=== PATIENT | male | born 1960 | race Caucasian/White ===

== ENCOUNTER 2018-08-31 09:04 | Emergency (ER) | payer MEDICAID, SELFPAY ==
[2018-08-31] VITALS (26 sets, daily range): BP systolic 101–119; BP diastolic 59–81; PULSE 70–104; RESP 12–39; TEMP 36.3–37; O2SAT 91–98
--- NOTE | 2018-08-31 09:26 | W.ED.GENAD ---
Discharge Plan Disposition Patient Disposition: HOME Condition: Improving Discharge Details Chief Complaint: Chest Pain Clinical Impression: Acute alcoholic gastritis Primary Care Provider: Greg Jordan ED Provider: Juan Verde Home Meds and New Rx's Prescriptions: New sucralfate [Carafate] 1 gram tablet 1 gm PO Q6H 28 Days Qty: 112 RF: 0 Continue magnesium oxide 400 MG tablet 400 mg PO BID RF: 0 zolpidem [Ambien] 5 MG tablet 10 mg PO HS RF: 0 pantoprazole 40 MG tablet,delayed release (DR/EC) 40 mg PO DAILY@0730 Qty: 30 RF: 0 folic acid 1 MG tablet 1 mg PO DAILY Qty: 30 RF: 0 multivit, iron, min no.8, FA [Therapeutic-M] 1 TAB tablet 1 tab PO DAILY Qty: 30 RF: 0 No Action propranolol 10 mg Tablet 10 mg PO TID RF: 0 albuterol sulfate 90 mcg/actuation Hfa Aerosol Inhaler 2 puff INHALATION Q4H PRNRF: 0 Discharge Instructions Instructions: Gastritis (ED) Additional Instructions: Your alcohol level today was 0.184. Please continue efforts to decrease alcohol usage. I will re-prescribe your pantoprazole and you should continue to take it. I have added Carafate which I will ask you to take for 1 month. Please call the [facility] primary care office for a follow-up appointment in 5-10 days time. You may use Tums in addition to the prescribed pantoprazole. Please limit your diet to bland foods and avoid fatty, fried, spicy, tomato-based foods or further alcohol use today. Return if you develop a fever, worsening discomfort, or any other acute concern. Medical Decision Making 58-year-old male alcoholic presents from home with epigastric pain that radiates to his chest over days time. He admits to ongoing daily drinking. He has not had a fever. No diarrhea. He arrives with a normal temperature, blood pressure, pulse is 96. Differential diagnosis includes mild alcohol withdrawal, dehydration, pancreatitis, gastritis. Patient IV access established, given fluids, antiemetic, parenteral analgesic. He is referred for laboratory testing and EKG. EKG nondiagnostic. Patient's diagnostics reveal a normal lipase, anion gap greater than 20, unremarkable CBC. His alcohol level is 184, which is somewhat inconsistent with his reported use Most consistent with toxic effects of chronic alcohol use including dehydration and gastritis. Patient was given a GI cocktail, Protonix with improvement. Current medication list obtained with patient primary care office at [facility]. I will have him continue the prescribed pantoprazole and add Carafate. He understands to decrease alcohol use. He understands return precautions. Stable for discharge with his mother. He is ambulatory, speaking fluently, with no overt signs of acute alcohol toxicity Lab Data Lab results reviewed: Yes I reviewed the patient's lab results. Laboratory Results - last 24 hr 08/31/18 08/31/18 08/31/18 09:34 09:35 09:35 WBC 7.72 RBC 5.07 Hgb 17.0 Hct 50.0 MCV 98.6 H MCH 33.5 H MCHC 34.0 RDW 13.5 Plt Count 122 L MPV 9.4 Immature Gran % 0.3 Neutrophils % 75.9 Lymphocytes % 17.4 Monocytes % 5.7 Eosinophils % 0.1 Basophils % 0.6 Absolute Neutrophils 5.86 Absolute Lymphocytes 1.34 Absolute Monocytes 0.44 Absolute Eosinophils 0.01 Absolute Basophils 0.05 Sodium 143 Potassium 3.4 L Chloride 98 Carbon Dioxide 19.0 L Anion Gap 26.0 H BUN 6 L Creatinine 0.57 L Estimated GFR/1.73 m2 >= 60.00 Glucose 101 H Calcium 9.4 Magnesium 1.2 L Total Bilirubin 0.7 Conjugated Bilirubin 0.26 H AST 100 H ALT 87 H Alkaline Phosphatase 44 L Troponin I < 0.02 Total Protein 7.5 Albumin 4.0 Lipase 64 L Ethyl Alcohol 184.1 ECG Data Attestation: I personally reviewed and interpreted this ECG (s) as follows: Interpretation: Normal sinus rhythm, rate of 80, the QRS is narrow, there is no ST segment elevation. Q waves noted in anterior leads. HPI General Mode of arrival: ambulatory. Date/Time Provider Initiated Documentation: 08/31/18 09:05. Limitations to Documentation: no limitations. Information obtained by: patient. History of Present Illness 58 year old M presents to the emergency department with the chief complaint of Randall epigastric pain, described as moderate, Quality is described as burning, and is localized to the abdomen. Patient reports radiation to (2 chest). Patient started experiencing this hour(s) and it has been constant. No relieving factors improve symptom(s), Eating worsens symptoms . Patient notes denies fever/chills. HPI Narrative: 58-year-old male alcoholic presents with his mother from his home. He describes a gradual onset yesterday evening of burning epigastric pain that is been constant, moderate to severe, radiates to his chest at times and is associated with multiple episodes of nonbilious emesis. It is worsened with food. He states he drinks approximately 4 beers per day. Related Data Home Medications Medication Instructions Recorded Confirmed magnesium oxide 400 mg PO BID 08/14/17 08/31/18 zolpidem [Ambien] 10 mg PO HS tab-cap 08/14/17 08/31/18 folic acid 1 mg PO DAILY #30 tab 12/12/17 08/31/18 multivit, iron, min no.8, FA 1 tab PO DAILY #30 tab 12/12/17 08/31/18 [Therapeutic-M] albuterol sulfate 2 puff INHALATION Q4H PRN 08/31/18 08/31/18 pantoprazole 40 mg PO DAILY@0730 #30 tabcr 08/31/18 propranolol 10 mg PO TID 08/31/18 08/31/18 sucralfate [Carafate] 1 gm PO Q6H 28 Days #112 tab 08/31/18 Previous Rx's Medication Instructions Recorded folic acid 1 mg PO DAILY #30 tab 12/12/17 multivit, iron, min no.8, FA 1 tab PO DAILY #30 tab 12/12/17 [Therapeutic-M] pantoprazole 40 mg PO DAILY@0730 #30 tabcr 08/31/18 sucralfate [Carafate] 1 gm PO Q6H 28 Days #112 tab 08/31/18 Allergies Allergy/AdvReac Type Severity Reaction Status Date / Time No Known Allergies Allergy Unverified 08/14/17 09:07 Review of Systems Review of Systems 8 systems reviewed and otherwise negative PFSH Social History Smoking/Tobacco Use Status: Current every day Exam Narrative Exam Narrative: GEN: awake, alert, oriented 3. Pleasant, well groomed, interactive, anxious, mild tremor.. HEAD: Normocephalic, atraumatic ENT: Mucous membranes dry, oropharynx unremarkable, tobacco stains on mustache external ear exam unremarkable EYES: PERRL, EOMI NECK: Full ROM, no LEANNE, no menigismus CHEST/RESP: Nontender, clear to auscultation bilateral, no wheeze/rhonchi/rales CARDIOVASCULAR: RRR, no murmur, rub tyrell. 2+ Rad pulse bilateral ABDOMEN: Soft, tender in the epigastrium without rebound or guarding., no mass. +Bowel sounds EXT: Full ROM, no edema, no rash Neuro: Grossly normal neurologic exam, conversant, interactive, mild tremor present. Psych: Speech fluent, thoughts congruent, affect slightly anxious
[2018-08-31] MEDS: Lactated Ringers 1,000 ML 1000 ML IV (09:45)
[2018-08-31] MEDS: Ondansetron 4 MG/2 ML VIAL IVP (09:46)
[2018-08-31] MEDS: HYDROmorphone 2 MG/ML VIAL 1 MG IVP (09:47)
[2018-08-31] MEDS: LORazepam 2 MG/ML VIAL 0.5 MG IVP (09:48)
[2018-08-31 09:52] LABS: Abs Immature Grans 0.02 k/cumm (0.0-0.09); Absolute Basophil Count 0.05 k/cumm (0.0-0.2); Absolute Eosinophil Count 0.01 k/cumm (0.0-0.7); Absolute Lymphocyte Count 1.34 k/cumm (1.2-3.4); Absolute Monocyte Count 0.44 k/cumm (0.11-0.7); Absolute Neutrophil Count 5.86 k/cumm (1.2-6.7); Basophils % 0.6; Eosinophils % 0.1; Immature Grans % 0.3; Lymphocytes % 17.4; Mean Corpuscular Hemoglobin 33.5 pg (27.0-33.0); Mean Corpuscular Volume 98.6 fL (80-95); Mean Platelet Volume 9.4 fL (8.0-11.0); Monocytes % 5.7; Neutrophils % 75.9; Platelet Count 122 x1000/uL (130-400); RBC 5.07 m/cumm (4.50-6.00); RBC Distribution Width 13.5 % (11.8-14.1); White Blood Cell Count 7.72 k/cumm (4.4-10.8)
[2018-08-31 10:07] LABS: ALT 87 U/L (12-78); AST 100 U/L (15-37); Alkaline Phosphatase 44 U/L (46-116); BUN 6 mg/dL (7-18); Bilirubin, Direct 0.26 mg/dL (0.00-0.20); Bilirubin, Total 0.7 mg/dL (0.2-1.0); CREATININE 0.57 mg/dL (0.70-1.30); Calcium 9.4 mg/dL (8.5-10.1); Chloride 98 mmol/L (98-107); Glucose 101 mg/dL (70-100); Lipase 64 U/L (73-393); Magnesium 1.2 mg/dL (1.8-2.4); Potassium 3.4 mmol/L (3.5-5.1); Sodium 143 mmol/L (136-145); Total Protein 7.5 g/dL (6.4-8.2); Troponin I < 0.02 ng/mL (0.00-0.06)
--- NOTE | 2018-08-31 10:37 | DI.RAD_ITS ---
SYMPTOM/DIAGNOSIS: EPIGASTRIC PAIN, SMOKER, DAILY DRINKER PA AND LATERAL CHEST: The heart is normal in size. The lungs are clear. The mediastinal structures and pleura appear intact. CONCLUSION: Normal chest.
[2018-08-31 10:39] LABS: ETHANOL BLOOD 184.1 mg/dL (<3)
[2018-08-31] MEDS: Pantoprazole 40 MG VIAL IVP (10:44)
== END 2018-08-31 11:30 | disposition home or self-care (01) ==
PROVIDERS: Emergency Provider Emergency Medicine; PCP Specialist/Technologist Athletic Trainer
DX: K29.20 Alcoholic gastritis without bleeding (principal); F10.20 Alcohol dependence, uncomplicated; Y90.6 Blood alcohol level of 120-199 mg/100 ml; R11.2 Nausea with vomiting, unspecified
CPT/HCPCS: 36415; 80053; 80076; 83690; 93005; 96361; 96374; 96375; 99285; 71046; 80320; 83735; 84484; 85025; 93010; 99284; J2060; J2405

== ENCOUNTER 2019-06-21 08:21 | Outpatient (CLI) | payer OTHER, SELFPAY ==
[2019-06-21] MEDS: Inhaler, Assist Device 1 EACH MC (09:31)
[2019-06-21] MEDS: Albuterol HFA 18 GM 200 PUFF INH IH (09:31)
== END 2019-06-21 08:41 ==
PROVIDERS: PCP Specialist/Technologist Athletic Trainer; Visit Provider Pediatrics Pediatric Rheumatology
DX: J44.9 Chronic obstructive pulmonary disease, unspecified (principal); F17.200 Nicotine dependence, unspecified, uncomplicated; Z02.71 Encounter for disability determination
CPT/HCPCS: 94060; 94729

== ENCOUNTER 2019-07-31 08:40 | Outpatient (CLI) | payer MEDICAID, SELFPAY ==
[2019-07-31 09:17] LABS: Bilirubin Negative (Negative); Blood Negative (Negative); Clarity Clear (Clear); Glucose Negative (Negative); Ketones Negative (Negative); Leukocyte Esterase Negative (Negative); Nitrite Negative (Negative); Specific Gravity 1.015 (1.005-1.025); Urobilinogen 0.2 EU/dL (Up TO 0.2)
[2019-07-31 09:24] LABS: Abs Immature Grans 0.01 k/cumm (0.0-0.09); Absolute Basophil Count 0.07 k/cumm (0.0-0.2); Absolute Eosinophil Count 0.14 k/cumm (0.0-0.7); Absolute Lymphocyte Count 1.36 k/cumm (1.2-3.4); Absolute Monocyte Count 0.74 k/cumm (0.11-0.7); Absolute Neutrophil Count 3.15 k/cumm (1.2-6.7); Basophils % 1.3; Eosinophils % 2.6; HCT 32.8 % (40.0-50.0); HGB 9.8 g/dL (13.5-17.5); Immature Grans % 0.2; Lymphocytes % 24.9; Mean Corp. HGB Concentration 29.9 g/dL (32.0-36.0); Mean Corpuscular Hemoglobin 23.2 pg (27.0-33.0); Mean Corpuscular Volume 77.5 fL (80-95); Mean Platelet Volume 9.1 fL (8.0-11.0); Monocytes % 13.5; Neutrophils % 57.5; Platelet Count 215 x1000/uL (130-400); RBC 4.23 m/cumm (4.50-6.00); RBC Distribution Width 18.7 % (11.8-14.1); White Blood Cell Count 5.47 k/cumm (4.4-10.8)
[2019-07-31 10:45] LABS: Anisocytosis 2+; Basophilic Stippling Present; Diff Comment RBC Morph Reviewed; Hypochromasia 2+; Microcytosis 1+; Polychromasia Present
[2019-07-31 10:46] LABS: Target Cells 2+
[2019-08-01 10:36] LABS: C3 Complement 99 mg/dL (81-157); C4 Complement 13 mg/dL (13-39)
== END 2019-07-31 09:00 ==
PROVIDERS: PCP Specialist/Technologist Athletic Trainer
DX: D64.9 Anemia, unspecified (principal)
CPT/HCPCS: 36415; 81003; 85025; 86160

== ENCOUNTER 2019-11-28 14:41 | Inpatient (IN) | payer MEDICAID, SELFPAY ==
[2019-11-28] VITALS (33 sets, daily range): BP systolic 104–153; BP diastolic 56–88; PULSE 71–117; RESP 14–32; TEMP 36.7–37.4; O2SAT 91–100
[2019-11-28] MEDS: Ondansetron 4 MG/2 ML VIAL (14:54)
--- NOTE | 2019-11-28 14:59 | W.ED.GENAD ---
Discharge Plan Disposition Patient Disposition: [facility] INPATIENT Condition: Good Discharge Details Chief Complaint: Chest Pain Clinical Impression: Vomiting, Enteritis, Acidosis, lactic, Acute dehydration Primary Care Provider: Greg Jordan ED Provider: Dewayne Gamez Home Meds and New Rx's Prescriptions: No Action magnesium oxide 400 MG tablet 400 mg PO BID RF: 0 zolpidem [Ambien] 5 MG tablet 10 mg PO HS RF: 0 pantoprazole 40 MG tablet,delayed release (DR/EC) 40 mg PO DAILY@0730 Qty: 30 RF: 0 propranolol 10 mg Tablet 10 mg PO TID RF: 0 albuterol sulfate 90 mcg/actuation Hfa Aerosol Inhaler 2 puff INHALATION Q4H PRNRF: 0 folic acid 1 MG tablet 1 mg PO DAILY Qty: 30 RF: 0 multivit, iron, min no.8, FA [Therapeutic-M] 1 TAB tablet 1 tab PO DAILY Qty: 30 RF: 0 Medical Decision Making This is a 59-year-old male with a history of alcoholism drinking 2-3 beers per day, who presents with abdominal pain that started yesterday followed by 30 episodes of vomiting and now subsequent chest pain. He is currently retching but no vomiting anymore. He denies any blood in his sputum or vomit, he denies any diarrhea or melena. Exam demonstrates a relatively unremarkable abdomen with no focal tenderness. Mild diffuse irritation. No genital tenderness. No skin crepitus. Vitals are stable aside from mild tachycardia. He shows no evidence of STEMI on his EKG. Differential is highest for Ling-Hancock tear or Boerhaave's tear, we will treat the patient's pain, nausea, rehydrate, get a CAT scan for further assessment of this and reassess. Of note it does appear that the patient had a similar but certainly not identical presentation about a year ago where Boerhaave's tear was also on the differential. CT scan at that time showed acute enteritis throughout but no other focal component. 5:51 PM Patient's lactate is notably elevated at 6.3, no transaminitis, troponin normal, urinalysis unremarkable aside for notably elevated ketones. Alcohol 100. Patient has had notably persistent nausea and vomiting and pain here. Pain is improved with opiates, however he is unable to tolerate p.o. after 8 of Zofran, Compazine, and Reglan. He has continued vomiting and p.o. intolerance. Repeat lactate after 2 L normal saline has slightly improved to 5.5. I did contact radiology again and discussed the case and they see no clinical evidence of ischemic bowel. Additionally the patient's mother is now at bedside and states that his hemoglobin has been low like this in the past, he is being evaluated at [facility] and recently had a colonoscopy in the last 2 months, which was negative. They are uncertain as to where his low hemoglobin is coming from. We will continue to rehydrate control his pain and nausea. He does appear slightly jittery and will give 1 mg of Ativan as he may be having a very small amount of withdrawals. He does not have any history of seizures or DTs. Because of his persistently elevated lactate, his inability to tolerate p.o., I do feel that he would benefit from inpatient admission continued fluids and rehydration. I spoke with Dr. Strickland, she agrees with the assessment and plan. Patient will be admitted to [facility] for further management. I have extensively reviewed the treatment plan with the patient. I have addressed all patient concerns at this time. I have also discussed the plan with the admitting physician and they agree with the current assessment and plan and have agreed to assume responsibility for the patient. All parties demonstrate verbal understanding and agreement with our assessment and plan at this time. Also of note serial troponins and EKGs are within normal limits. Symptoms and consistent with ACS. EKG 14: 46 Rate 107, QTc 472, QRS 92, machine read as atrial flutter however I think this is incorrect. It appears to be sinus rhythm, no evidence of STEMI, no significant abnormality. FINDINGS: Aorta: Mild atherosclerotic calcifications of the aorta and major branches. No evidence of dissection or aneurysm. Celiac trunk and mesenteric arteries: No occlusion or significant stenosis. Renal arteries: No occlusion or significant stenosis. Liver: Diffuse hepatic steatosis. Gallbladder and bile ducts: Normal. No calcified stones. No ductal dilation. Pancreas: Normal. No ductal dilation. Spleen: Normal. No splenomegaly. Adrenals: Normal. No mass. Kidneys and ureters: Punctate nonobstructive calyceal calculus in the right kidney. Mild right hydroureter. Stomach and bowel: Generalized nonspecific prominence of proximal to mid small bowel loops measuring up to 3.5 cm in maximal diameter, with air-fluid levels, and several with areas of wall thickening. No evidence of pneumatosis. Visualized large bowel loops are unremarkable. Approximately 2.2 cm fat density mural lesion within the wall of the proximal jejunum, just beyond the ligament of Treitz. Appendix: The appendix is normal. Lymph nodes: Unremarkable. No enlarged lymph nodes. Intraperitoneal space: Unremarkable. No free air. No significant fluid collection. Bones/joints: Mild degenerative changes of the visualized spine. No acute fracture. Soft tissues: Unremarkable. IMPRESSION: 1. Generalized nonspecific prominence of proximal to mid small bowel loops measuring up to 3.5 cm in maximal diameter, with air-fluid levels, and several with areas of wall thickening. Findings are most suggestive of enteritis. No definite evidence of mechanical obstruction. 2. 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 This lesion was present on prior CT from 12/12/2017. 3. Diffuse hepatic steatosis. 4. Punctate nonobstructive calyceal calculus in the right kidney. Mild right hydroureter. Distal obstructive calculus cannot be excluded, as the bladder and inferior right ureter were not included within the [id number] of the examination. Correlate clinically with urinalysis. 5. Other chronic findings, as above. Thank you for allowing us to participate in the care of your patient. Dictated and Authenticated by: Morales Veras MD 11/28/2019 5:09 PM Eastern Time ([place] & [place]) FINDINGS: Lungs: No centrilobular emphysematous changes of the lungs. Pleural space: No pleural effusion or pneumothorax. Heart: Mild to moderate calcifications of the coronary arteries. Mediastinum: Oral contrast is present within the oral cavity and esophagus. No evidence of extravasation of oral contrast from visualized portions of the alimentary canal. Aorta: Mild atherosclerotic calcifications of the aorta. Lymph nodes: No enlarged lymph nodes. Bones/joints: No acute osseus lesion or fracture. Soft tissues: Unremarkable. IMPRESSION: 1. Oral contrast is present within the oral cavity and esophagus. No evidence of extravasation of oral contrast from visualized portions of the alimentary canal. 2. Other chronic findings, as above. Thank you for allowing us to participate in the care of your patient. Dictated and Authenticated by: Morales Veras MD 11/28/2019 4:55 PM Eastern Time ([place] & [place]) HPI General Date/Time Provider Initiated Documentation: 11/28/19 14:42. HPI Narrative: 59-year-old male with a past medical history of alcoholism who presents today for evaluation of vomiting and chest pain. Patient states that starting yesterday afternoon he developed sudden onset nausea, followed by 30+ episodes of vomiting, no blood. He then developed mild to moderate chest pain with it. He denies cough or shortness of breath. States that the pain is all throughout his entire abdomen, and goes all the way up to his chest. He denies any tearing or ripping sensation. He denies any diarrhea, hematochezia, melena or acholic stool. He has not drunk in the last 2 to 3 days. He denies any history of cardiac disease. He does admit to a history of tobacco abuse. He denies any other complaints at this time. No other modifying factors. Related Data Home Medications Medication Instructions Recorded Confirmed magnesium oxide 400 mg PO BID 08/14/17 08/31/18 zolpidem [Ambien] 10 mg PO HS tab-cap 08/14/17 08/31/18 folic acid 1 mg PO DAILY #30 tab 12/12/17 08/31/18 multivit, iron, min no.8, FA 1 tab PO DAILY #30 tab 12/12/17 08/31/18 [Therapeutic-M] albuterol sulfate 2 puff INHALATION Q4H PRN 08/31/18 08/31/18 pantoprazole 40 mg PO DAILY@0730 #30 tabcr 08/31/18 propranolol 10 mg PO TID 08/31/18 08/31/18 Previous Rx's Medication Instructions Recorded folic acid 1 mg PO DAILY #30 tab 12/12/17 multivit, iron, min no.8, FA 1 tab PO DAILY #30 tab 12/12/17 [Therapeutic-M] pantoprazole 40 mg PO DAILY@0730 #30 tabcr 08/31/18 Allergies Allergy/AdvReac Type Severity Reaction Status Date / Time No Known Allergies Allergy Unverified 11/28/19 14:47 General Stated Complaint: Chest Pain YOGI: 2 Review of Systems All systems reviewed & are unremarkable except as noted in HPI and below PFSH Social History Smoking/Tobacco Use Status: Current every day Drug use: Daily Do you feel safe in your relationship?: Yes Exam Narrative Exam Narrative: 1.Const: Well-nourished, Well-developed, appearing stated age 2.Eyes: PERRL, no conjunctival injection, and symmetrical lids. 3.ENT: Atraumatic external nose and ears. Notably dry MM. Neck: Symmetric, trachea midline, No thyromegaly. 4.CVS: +S1/S2, No murmurs or gallops. Peripheral pulses 2+ and equal in all extremities. Brisk capillary refill in all extremities. 5.RESP: Unlabored respiratory effort. Clear to auscultation bilaterally. No wheezes rales or rhonchi 6.GI: Soft, nondistended, no guarding or rebound. No focal tenderness. No pain at McBurney's point, negative Birch sign. 7.MSK: Normocephalic/Atraumatic, Extremities w/o deformity or ttp No cyanosis or clubbing, Normal movement of all extremities 8.Skin: Warm, Dry. No rashes or lesions. 9.Neuro: wool washer II-XII grossly intact. Sensation grossly intact, no focal neurologic deficits. 10.Psych: (AAO) x3. Appropriate mood and affect Course Vital Signs Vital signs: Vital Signs Temperature 36.8 C 11/28/19 14:44 Pulse 117 H 11/28/19 14:44 Respiratory Rate 18 11/28/19 14:44 Blood Pressure 136/86 11/28/19 14:44 Pulse Oximetry 98 11/28/19 14:44 Temperature 36.8 C 11/28/19 14:44 Temperature Source Temporal Artery Scan 11/28/19 14:44 Pulse 117 H 11/28/19 14:44 Respiratory Rate 18 11/28/19 14:44 Blood Pressure 136/86 11/28/19 14:44 Blood Pressure Position Supine 11/28/19 14:44 Pulse Oximetry 98 11/28/19 14:44 Oxygen Delivery Method Room Air 11/28/19 14:44 Oxygen Flow Rate 0 11/28/19 14:44 Pain Level 8 11/28/19 14:44 Lab/Test Results Lab/Test Results: 11/28/19 14:46 Nasopharynx Influenza Types A,B Antigen - Pending
[2019-11-28] MEDS: Normal Saline 1,000 ML 1000 ML IV ×3 (15:07→17:40)
[2019-11-28 15:21] LABS: Lactate 6.3 mmol/L (0.6-1.4)
[2019-11-28 15:24] LABS: Abs Immature Grans 0.02 k/cumm (0.0-0.09); Absolute Basophil Count 0.05 k/cumm (0.0-0.2); Absolute Eosinophil Count 0.02 k/cumm (0.0-0.7); Absolute Lymphocyte Count 0.97 k/cumm (1.2-3.4); Absolute Monocyte Count 0.71 k/cumm (0.11-0.7); Absolute Neutrophil Count 5.11 k/cumm (1.2-6.7); Basophils % 0.7; Eosinophils % 0.3; HCT 34.1 % (40.0-50.0); Immature Grans % 0.3 %; Lymphocytes % 14.1; Mean Corp. HGB Concentration 29.3 g/dL (32.0-36.0); Mean Corpuscular Volume 78.6 fL (80-95); Mean Platelet Volume 9.8 fL (8.0-11.0); Monocytes % 10.3; Neutrophils % 74.3; Platelet Count 151 x1000/uL (130-400); RBC 4.34 m/cumm (4.50-6.00); RBC Distribution Width 23.2 % (11.8-14.1); White Blood Cell Count 6.88 k/cumm (4.4-10.8)
[2019-11-28 15:36] LABS: ALT 32 U/L (16-63); AST 52 U/L (15-37); Albumin 3.3 g/dL (3.4-5.0); Alkaline Phosphatase 62 U/L (46-116); Anion Gap 17.7 mmol/L (3-11); BUN 4 mg/dL (7-18); Bilirubin, Total 0.6 mg/dL (0.2-1.0); CO2 24.3 mmol/L (21.0-32.0); CREATININE 0.58 mg/dL (0.70-1.30); Calcium 8.7 mg/dL (8.5-10.1); Chloride 101 mmol/L (98-107); Glucose 116 mg/dL (74-106); Lipase 58 U/L (73-393); Potassium 3.4 mmol/L (3.5-5.1); Sodium 143 mmol/L (136-145); Total Protein 7.1 g/dL (6.4-8.2)
[2019-11-28 15:39] LABS: Troponin I < 0.05 ng/Ml (<0.06)
[2019-11-28 15:40] LABS: ETHANOL BLOOD 107.6 mg/dL (<3)
[2019-11-28] MEDS: Metoclopramide 10 MG/2 ML VIAL (15:58)
[2019-11-28] MEDS: Normal Saline 50 ML 400 ML (15:58)
[2019-11-28 15:59] LABS: Anisocytosis 3+; Diff Comment RBC Morph Reviewed; Hypochromasia 1+
[2019-11-28] MEDS: HYDROmorphone 2 MG/ML VIAL ×2 (15:59→17:57)
[2019-11-28 16:00] LABS: Target Cells 2+
[2019-11-28] MEDS: Omnipaque 350 MG/ML 100 ML BTL IJ ×2 (16:01→16:39)
--- NOTE | 2019-11-28 16:08 | DI.CT_ITS ---
EXAM: CT ABDOMEN CTA CLINICAL HISTORY: Abdominal pain, vomiting, wretching, lactate of 6 TECHNIQUE: COMPARISON: CHEST ABD PELVIS WITH CONTRAST from 12/12/2017 FINDINGS: CT angiography of the abdomen was performed with intravenous infusion of 100 cc of Omnipaque 350. Th ere is mild hepatic steatosis. Spleen is unremarkable in appearance. Pancreas appears normal. No b iliary dilatation or gallbladder abnormality by CT criteria. Adrenals and kidneys appear normal exce pt for tiny nonobstructing right renal calculus. No abdominal adenopathy. No focal bowel pathology although there is mild nonspecific bowel dilatation, consider enteritis. Abdominal aorta is of normal diameter with mild atheromatous wall calcification. Major branches appe ar intact throughout. IMPRESSION: No major vascular abnormality seen. Hepatic steatosis noted. Mild nonspecific fluid-filled bowel dilatation, consider enteritis. 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
[2019-11-28 16:23] LABS: Bilirubin Negative (Negative); Blood Negative (Negative); Clarity Clear (Clear); Glucose Negative (Negative); Ketones 40 mg/dL (Negative); Leukocyte Esterase Negative (Negative); Nitrite Negative (Negative); Specific Gravity >= 1.030 (1.005-1.025); Urobilinogen 0.2 EU/dL (Up TO 0.2)
--- NOTE | 2019-11-28 16:30 | DI.CT_ITS ---
EXAM: CT CHEST W CLINICAL HISTORY: Abdominal pain, vomiting, wretching, lactate of 6,? Mesenteric ischemia or perfora kae esophagus TECHNIQUE: CT examination of the chest was performed following CT angiography of the abdomen. COMPARISON: CHEST ABD PELVIS WITH CONTRAST from 12/12/2017 FINDINGS: No gross vascular abnormality identified in the thoracic region. Motion limits evaluation of the jeanine gs but no gross consolidation or mass is seen. There appears to be moderate centrilobular pulmonary emphysema. Tracheobronchial tree appears intact. No mediastinal or hilar adenopathy. Oral contrast material present in the esophagus with esophageal dilatation and pooling of contrast material. The findings could be associated with distal esophageal obstruction, correlation with endoscopy recommend ed. IMPRESSION: No evidence of acute intrapulmonary process. Central lobular emphysematous changes noted. Pooling of contrast material in the esophagus and esophageal dilatation, these findings could be asso ciated with a distal esophageal obstruction and correlation with endoscopy is recommended. Evaluatio n of the esophagus is limited by motion artifact.
[2019-11-28] MEDS: Normal Saline Flush 10 ML SYR IVP ×3 (16:38→20:04)
[2019-11-28] MEDS: Omnipaque 350 MG/ML 50 ML BTL 25 ML PO (16:40)
[2019-11-28] MEDS: Breeza Beverage 473 ML BTL PO (16:41)
--- NOTE | 2019-11-28 16:55 | DI.VRAD_ITS ---
PROCEDURE INFORMATION: Exam: CT Chest With Contrast Exam date and time: 11/28/2019 3:31 PM Age: 59 years old Clinical indication: Type not specified; Patient HX: Chest pain after violent vomiting in 24 hours, wrenching, lactate of 6. ? Perforated esophagus, boerhaave tear? TECHNIQUE: Imaging protocol: Computed tomography of the chest with intravenous contrast. Radiation optimization: All CT scans at this facility use at least one of these dose optimization techniques: automated exposure control; mA and/or kV adjustment per patient size (includes targeted exams where dose is matched to clinical indication); or iterative reconstruction. Contrast material: OMNIPAQUE 350; Contrast volume: 75 ml; Contrast route: IV; Other contrast: Route: Oral, Material: omnipaque 350, Volume: 25; COMPARISON: CR XR CHEST 2V PA LATERAL 08/31/2018 10:12 AM FINDINGS: Lungs: No centrilobular emphysematous changes of the lungs. Pleural space: No pleural effusion or pneumothorax. Heart: Mild to moderate calcifications of the coronary arteries. Mediastinum: Oral contrast is present within the oral cavity and esophagus. No evidence of extravasation of oral contrast from visualized portions of the alimentary canal. Aorta: Mild atherosclerotic calcifications of the aorta. Lymph nodes: No enlarged lymph nodes. Bones/joints: No acute osseus lesion or fracture. Soft tissues: Unremarkable. IMPRESSION: 1. Oral contrast is present within the oral cavity and esophagus. No evidence of extravasation of oral contrast from visualized portions of the alimentary canal. 2. Other chronic findings, as above. Dictated and Authenticated by: Morales Veras MD. Ordering:RICARDO Buchanan MD
--- NOTE | 2019-11-28 17:09 | DI.VRAD_ITS ---
Addendum created by Morales Veras MD on 11/28/2019 5:59:44 PM EST Findings were discussed with CUATE SEGOVIA at 11/28/2019 5:59 PM EST. Initial report created on 11/28/2019 5:09:27 PM EST PROCEDURE INFORMATION: Exam: CT Angiography Abdomen With Contrast Exam date and time: 11/28/2019 3:31 PM Age: 59 years old Clinical indication: Other: Vomitting, severe abdominal pain; Patient HX: R/O mesenteric ischemia TECHNIQUE: Imaging protocol: Computed tomographic angiography images of the abdomen with intravenous contrast material. 3D rendering: MIP and/or 3D reconstructed images were created by the technologist. Radiation optimization: All CT scans at this facility use at least one of these dose optimization techniques: automated exposure control; mA and/or kV adjustment per patient size (includes targeted exams where dose is matched to clinical indication); or iterative reconstruction. Contrast material: OMNIPAQUE 350; Contrast volume: 75 ml; Contrast route: IV; COMPARISON: CT CHEST ABD PELVIS WITH CONTRAST 12/12/2017 2:51 AM FINDINGS: Aorta: Mild atherosclerotic calcifications of the aorta and major branches. No evidence of dissection or aneurysm. Celiac trunk and mesenteric arteries: No occlusion or significant stenosis. Renal arteries: No occlusion or significant stenosis. Liver: Diffuse hepatic steatosis. Gallbladder and bile ducts: Normal. No calcified stones. No ductal dilation. Pancreas: Normal. No ductal dilation. Spleen: Normal. No splenomegaly. Adrenals: Normal. No mass. Kidneys and ureters: Punctate nonobstructive calyceal calculus in the right kidney. Mild right hydroureter. Stomach and bowel: Generalized nonspecific prominence of proximal to mid small bowel loops measuring up to 3.5 cm in maximal diameter, with air-fluid levels, and several with areas of wall thickening. No evidence of pneumatosis. Visualized large bowel loops are unremarkable. Approximately 2.2 cm fat density mural lesion within the wall of the proximal jejunum, just beyond the ligament of Treitz. Appendix: The appendix is normal. Lymph nodes: Unremarkable. No enlarged lymph nodes. Intraperitoneal space: Unremarkable. No free air. No significant fluid collection. Bones/joints: Mild degenerative changes of the visualized spine. No acute fracture. Soft tissues: Unremarkable. IMPRESSION: 1. Generalized nonspecific prominence of proximal to mid small bowel loops measuring up to 3.5 cm in maximal diameter, with air-fluid levels, and several with areas of wall thickening. Findings are most suggestive of enteritis. No definite evidence of mechanical obstruction. 2. 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 This lesion was present on prior CT from 12/12/2017. 3. Diffuse hepatic steatosis. 4. Punctate nonobstructive calyceal calculus in the right kidney. Mild right hydroureter. Distal obstructive calculus cannot be excluded, as the bladder and inferior right ureter were not included within the [id number] of the examination. Correlate clinically with urinalysis. 5. Other chronic findings, as above. Dictated and Authenticated by: Morales Veras MD. Ordering:RICARDO Buchanan MD
[2019-11-28] MEDS: LORazepam 2 MG/ML VIAL 1 MG IVP (17:44)
[2019-11-28 17:46] LABS: Lactate 5.5 mmol/L (0.6-1.4)
[2019-11-28] MEDS: Prochlorperazine 10 MG/2 ML VIAL IVP (18:01)
[2019-11-28 18:03] LABS: Troponin I < 0.05 ng/Ml (<0.06)
--- NOTE | 2019-11-28 18:32 | W.PM.HP.N ---
Date of service: 11/28/19 Time of Service: 18:32 Assessment and Plan Assessment and plan (1) Intractable vomiting: Status: Acute (2) Chronic iron deficiency anemia: Status: Acute Assessment and plan[place] [facility] [place] an etiology for the defn. results of CE/EGD/Periph smear reviewed tibc/fe/feriten very low at [facility] . cont Venofer in am cont on PPI hydration repeat labs in am monitoed bed high risk for w/ drawls (pt says he has never had w/ drawls when he stops drinking). (3) COPD (chronic obstructive pulmonary disease): Status: Chronic (4) Depression with anxiety: Status: Acute (5) Barretts esophagus: Status: Acute (6) Alcohol use disorder: Status: Acute Assessment and plan: pt is already tremulous CIWA protocol (7) Smoker unmotivated to quit: Status: Acute Assessment and plan: malvin patch (8) Dehydration, mild: Status: Acute (9) Hypokalemia due to excessive gastrointestinal loss of potassium: Status: Acute Assessment and plan: replacing check CMP in am (10) Tetrahydrocannabinol (THC) use disorder, moderate, dependence: Status: Acute (11) Atherosclerosis of abdominal aorta: Status: Acute (12) Gastroenteritis: Status: Acute (13) Kidney stone on right side: Status: Acute History of Present Illness Consults Consult date: 11/28/19 Requesting physician: Dewayne Gamez Narrative: pt admitted through the ED w/ intractible vomting. Pt has extensive hx of ETOH abuse. and Fe defn anemia. He [place] eg[place] and [place] 10[place]24 [place] [facility] CE: diverticular dx. EGD: loza's esoph/gastropahty/esophagitis. He was started on prilosec and po Fe. Per notes from [place] [facility] pt was not taking the po Fe and stated on IV Fe @ [facility]. He has had an extensive work up for anemia at [facility]. No cuase could be found for the anemia. pt is non compliant and most days drinks, smokes tobacco and THC products. He doesn't eat much or take his meds regularily. Today he woke up adn started vomting. He denies any unusual activities or trauma. No one else at home is been ill. He denies any cough sore throat nasal congestion etc. He has no abdominal pain. He currently still feels nauseated. He has not thrown up any blood, he has not noticed any blood in his stools or black tarry stools. He currently has no abdominal pain. He is very tremulous and is not had a drink in 36 hours. He says he is never gone through withdrawals or DTs in the past. He denies any chest pain or shortness of breath currently Review of Systems All systems reviewed & are unremarkable except as noted in HPI and below PFSH Medical History (Updated 11/28/19 @ 20:49 by Gabriella Strickland DO) Atherosclerosis of abdominal aorta (Acute) Barretts esophagus (Acute) Bone spur of foot (Acute) Chronic iron deficiency anemia (Acute) COPD (chronic obstructive pulmonary disease) (Chronic) DDD (degenerative disc disease) (Acute) Depression with anxiety (Acute) Diverticulosis (Acute) Essential tremor (Acute) Fatty liver (Acute) Hyperlipemia (Acute) Osteoarthritis (arthritis due to wear and tear of joints) (Chronic) Smoker unmotivated to quit (Acute) Tetrahydrocannabinol (THC) use disorder, moderate, dependence (Acute) Urinary incontinence (Acute) Surgical History (Updated 11/28/19 @ 20:38 by Gabriella Strickland DO) History of foot surgery (Acute) Hx of colonoscopy (Chronic) Hx of esophagogastroduodenoscopy (Chronic) Social History Smoking/Tobacco Use Status: Current every day Drug use: Daily Substance use type: marijuana Do you feel safe at home: Yes Do you feel safe in your relationship?: Yes Meds Home Medications and Allergies Home Medications Medication Instructions Recorded Confirmed Type zolpidem [Ambien] 10 mg PO HS tab-cap 08/14/17 11/28/19 History Therapeutic-M 1 tab PO DAILY #30 tab 12/12/17 11/28/19 Rx folic acid 1 mg PO DAILY #30 tab 12/12/17 11/28/19 Rx albuterol sulfate 2 puff INHALATION Q4H PRN 08/31/18 11/28/19 History pantoprazole 40 mg PO DAILY@0730 #30 tabcr 08/31/18 11/28/19 Rx propranolol 10 mg PO DAILY 08/31/18 11/28/19 History tiotropium bromide [Spiriva with 1 cap INHALATION DAILY 11/28/19 11/28/19 History HandiHaler] Allergies Allergy/AdvReac Type Severity Reaction Status Date / Time No Known Allergies Allergy Unverified 11/28/19 14:47 Exam Const General: cooperative, no acute distress, anxious, disheveled and ill appearing Nutritional Appearance: cachectic, malnourished and thin Orientation: alert, awake and oriented x3 Other: pt is very tremulous [facility] Head: normal to inspection, normocephalic, atraumatic and other (temporal muscle wasting) Ears: hearing grossly normal bilaterally and external ears normal General nose exam: external nose normal Face and sinus: normal facial exam and sinuses nontender Mouth: oral mucosae normal, lip normal, tongue normal and moist mucous membranes Teeth and gingiva: poor dentition Eyes General: appearance normal, both eyes and all related structures Conjunctivae: conjunctivae normal Sclera: sclerae normal Pupils: PERRL Neck Neck: normal visual inspection and full ROM Chest Chest: normal inspection of the chest Resp Effort & Inspection: normal respiratory effort, able to speak in complete sentences, no cough, no nasal flaring, not tachypneic and no use of accessory muscles Auscultation: clear to auscultation bilaterally, no rales, no rhonchi and no wheezes Cardio Jugular venous pressure: no JVD Rate: regular rate Rhythm: regular rhythm GI Inspection: normal to inspection, no edema, non-distended and scaphoid Palpation: soft, no masses, nontender and No ascites Auscultation: normal bowel sounds Skin General skin exam: no rashes or lesions noted Trauma: no lacerations or abrasions Neuro General: alert, oriented x3, oriented, gait normal, moves all extremities, no focal motor deficits and CN's II-XI intact bilaterally Cognition: normal cognition Speech: speech normal Gait: normal gait Motor: muscle tone normal throughout Extrem General: normal to inspection, full ROM and no clubbing, cyanosis or edema Psych Appearance: grossly normal and well kempt Mental Status: mental status grossly normal Speech and Movement: speech and movement normal Affect: normal affect Results Labs Result diagrams: 11/28/19 14:55 11/28/19 14:55 Labs: Laboratory Results - last 24 hr 11/28/19 11/28/19 11/28/19 14:55 14:55 14:55 WBC RBC Hgb Hct MCV MCH MCHC RDW Plt Count MPV Immature Gran % Neutrophils % Lymphocytes % Monocytes % Eosinophils % Basophils % Absolute Neutrophils Absolute Lymphocytes Absolute Monocytes Absolute Eosinophils Absolute Basophils Differential Comment RBC Morphology Hypochromasia Anisocytosis Target Cells Sodium 143 Potassium 3.4 L Chloride 101 Carbon Dioxide 24.3 Anion Gap 17.7 H BUN 4 L Creatinine 0.58 L Estimated GFR/1.73 m2 >= 60.00 Glucose 116 H Lactate 6.3 H* Calcium 8.7 Total Bilirubin 0.6 AST 52 H ALT 32 Alkaline Phosphatase 62 Troponin I < 0.05 Total Protein 7.1 Albumin 3.3 L Lipase 58 Urine Color Urine Clarity Urine pH Ur Specific Marshall Urine Protein Urine Ketones Urine Blood Urine Nitrite Urine Bilirubin Urine Urobilinogen Ur Leukocyte Esterase Urine Glucose Ethyl Alcohol 107.6 11/28/19 11/28/19 11/28/19 14:55 16:11 17:40 WBC 6.88 RBC 4.34 L Hgb 10.0 L Hct 34.1 L MCV 78.6 L MCH 23.0 L MCHC 29.3 L RDW 23.2 H Plt Count 151 MPV 9.8 Immature Gran % 0.3 Neutrophils % 74.3 Lymphocytes % 14.1 Monocytes % 10.3 Eosinophils % 0.3 Basophils % 0.7 Absolute Neutrophils 5.11 Absolute Lymphocytes 0.97 L Absolute Monocytes 0.71 H Absolute Eosinophils 0.02 Absolute Basophils 0.05 Differential Comment Rbc morph reviewed RBC Morphology See below Hypochromasia 1+ Anisocytosis 3+ Target Cells 2+ Sodium Potassium Chloride Carbon Dioxide Anion Gap BUN Creatinine Estimated GFR/1.73 m2 Glucose Lactate Calcium Total Bilirubin AST ALT Alkaline Phosphatase Troponin I < 0.05 Total Protein Albumin Lipase Urine Color Yellow Urine Clarity Clear Urine pH 6.0 Ur Specific Marshall >= 1.030 H Urine Protein Negative Urine Ketones 40 H Urine Blood Negative Urine Nitrite Negative Urine Bilirubin Negative Urine Urobilinogen 0.2 Ur Leukocyte Esterase Negative Urine Glucose Negative Ethyl Alcohol 11/28/19 17:40 WBC RBC Hgb Hct MCV MCH MCHC RDW Plt Count MPV Immature Gran % Neutrophils % Lymphocytes % Monocytes % Eosinophils % Basophils % Absolute Neutrophils Absolute Lymphocytes Absolute Monocytes Absolute Eosinophils Absolute Basophils Differential Comment RBC Morphology Hypochromasia Anisocytosis Target Cells Sodium Potassium Chloride Carbon Dioxide Anion Gap BUN Creatinine Estimated GFR/1.73 m2 Glucose Lactate 5.5 H* Calcium Total Bilirubin AST ALT Alkaline Phosphatase Troponin I Total Protein Albumin Lipase Urine Color Urine Clarity Urine pH Ur Specific Marshall Urine Protein Urine Ketones Urine Blood Urine Nitrite Urine Bilirubin Urine Urobilinogen Ur Leukocyte Esterase Urine Glucose Ethyl Alcohol Last Vital Signs Temp 37.2 C 11/28/19 16:48 Pulse 79 11/28/19 18:00 Resp 18 11/28/19 18:01 BP 111/72 11/28/19 18:00 Pulse Ox 91 L 11/28/19 18:01
[2019-11-28] MEDS: Lactated Ringers 1,000 ML 150 ML IV (18:45)
[2019-11-28] MEDS: Pantoprazole 40 MG VIAL IVP ×2 (18:46→20:06)
[2019-11-28 19:13] LABS: Iron 15 ug/dL (65-175); Total Iron Binding Capacity 212 ug/dL (250-450); Transferrin Sat 7 % (20-55)
[2019-11-28 19:24] LABS: TSH 3.42 uIU/mL (0.36-3.74)
[2019-11-28] MEDS: Nicotine 14 MG/24 HR PATCH TD (20:04)
[2019-11-28] MEDS: POTASSIUM CHLORIDE 10 MEQ/100 ML BAG 100 MEQ IVPB ×2 (21:32→22:53)
[2019-11-29] VITALS (7 sets, daily range): BP systolic 106–131; BP diastolic 64–78; PULSE 62–86; RESP 18–20; TEMP 36.3–37.6; O2SAT 93–99
[2019-11-29] MEDS: Lactated Ringers 1,000 ML 150 ML IV ×2 (02:55→11:42)
[2019-11-29] MEDS: MAGNESIUM SULFATE 2 GM/50 ML BAG IVPB (05:56)
[2019-11-29] MEDS: cefTRIAXone 2 GM/50 ML BAG IV (06:03)
[2019-11-29] MEDS: Normal Saline Flush 10 ML SYR IVP ×2 (06:03→10:20)
[2019-11-29 07:31] LABS: Lactate 0.6 mmol/L (0.6-1.4)
[2019-11-29 07:37] LABS: Abs Immature Grans 0.01 k/cumm (0.0-0.09); Absolute Basophil Count 0.02 k/cumm (0.0-0.2); Absolute Eosinophil Count 0.02 k/cumm (0.0-0.7); Absolute Lymphocyte Count 0.62 k/cumm (1.2-3.4); Absolute Monocyte Count 0.73 k/cumm (0.11-0.7); Absolute Neutrophil Count 4.07 k/cumm (1.2-6.7); Basophils % 0.4; Eosinophils % 0.4; HCT 29.1 % (40.0-50.0); HGB 8.2 g/dL (13.5-17.5); Immature Grans % 0.2 %; Lymphocytes % 11.3; Mean Corp. HGB Concentration 28.2 g/dL (32.0-36.0); Mean Corpuscular Volume 81.5 fL (80-95); Mean Platelet Volume 9.5 fL (8.0-11.0); Monocytes % 13.3; Neutrophils % 74.4; Platelet Count 109 x1000/uL (130-400); RBC 3.57 m/cumm (4.50-6.00); RBC Distribution Width 23.4 % (11.8-14.1); White Blood Cell Count 5.47 k/cumm (4.4-10.8)
[2019-11-29 08:02] LABS: ALT 20 U/L (16-63); AST 35 U/L (15-37); Albumin 2.3 g/dL (3.4-5.0); Alkaline Phosphatase 46 U/L (46-116); Anion Gap 12.1 mmol/L (3-11); BUN 3 mg/dL (7-18); Bilirubin, Total 0.5 mg/dL (0.2-1.0); CO2 25.9 mmol/L (21.0-32.0); CREATININE 0.41 mg/dL (0.70-1.30); Calcium 7.7 mg/dL (8.5-10.1); Chloride 104 mmol/L (98-107); Glucose 70 mg/dL (74-106); Potassium 3.4 mmol/L (3.5-5.1); Sodium 142 mmol/L (136-145); Total Protein 5.3 g/dL (6.4-8.2)
[2019-11-29 08:06] LABS: Troponin I < 0.05 ng/Ml (<0.06)
[2019-11-29] MEDS: Citalopram 20 MG TAB PO (09:02)
[2019-11-29] MEDS: LORazepam 1 MG TAB PO/SL ×2 (09:02→13:16)
[2019-11-29 09:17] LABS: Magnesium 1.7 mg/dL (1.8-2.4)
[2019-11-29] MEDS: Tiotropium Bromide-Respimat 10 PUFF INH 2 PUFF IH (09:56)
[2019-11-29] MEDS: IRON SUCROSE COMPLEX 100 MG in Normal Saline 100 ML 400 MG IVPB (10:17)
[2019-11-29] MEDS: POTASSIUM CHLORIDE 10 MEQ/100 ML BAG 100 MEQ IVPB ×2 (11:01→12:52)
[2019-11-29] MEDS: MAGNESIUM SULFATE 1 GM/100 ML BAG IVPB (13:17)
--- NOTE | 2019-11-29 13:19 | W.NUTCONSULT ---
Date of service: 11/29/19 Time of Service: 13:19 Nutritional Consult ASSESSMENT: 59 year old male admitted with vomiting, chest pain. PMH: Chronic iron deficiency anemia (unknown origin), COPD, barrets esophagus, gastroenteritis, ETOH/Nicotine abuse, diverticulosis, kidney stones. BMI low. Appears malnourished as evidenced by loss of subcutaneous fat and deminshed ability to perform ADLs. Currently NPO. Tried to visit Alton today but was sleeping. At high nutritional risk in view of low weight and substance abuse. Current vit/min supplementation adequate. Estimated needs: 1800 kcal, 60-70 g protein, 1800 ml fluid. NUTRITIONAL DIAGNOSIS: malnutrition INTERVENTION: NPO today Vitamin/Mineral Repletion MONITORING AND EVALUATION: weight, po intake, labs Time Spent in Nutritional Counseling and Treatment: 0 time spent face to face
--- NOTE | 2019-11-29 13:26 | W.NUTRFU ---
Date of service: 11/29/19 Time of Service: 13:26 Nutritional Follow up NOTE: recommend thiamine, folic acid and MVI in view of ETOH abuse. Time Spent in Nutritional Counseling and Treatment: 0 time spent
[2019-11-29 13:44] LABS: C-Reactive Protein 0.54 mg/dL (0.0-0.3)
[2019-11-29 14:08] LABS: ESR 7 mm/hr (1-20)
[2019-11-29] MEDS: Propranolol 10 MG TAB PO (14:13)
[2019-11-29 14:20] LABS: Procalcitonin < 0.1 ng/mL
--- NOTE | 2019-11-29 15:00 | INITIAL_ITS ---
- If Service Date Differs Date of service: 11/29/19 Time of Service: 15:00 Care Management Initial Assess REASON FOR HOSPITALIZATION:: Intractable vomiting, chronic iron deficiency anemia PAST MEDICAL HISTORY/PAST SURGICAL HISTORY:: Atherosclerosis of the abdominal aorta, Hopson's esophagus, bone spur of the foot, chronic iron deficiency anemia, COPD, degenerative disc disease, depression with anxiety, diverticulosis, essential tremor, fatty liver, hyperlipidemia, osteoarthritis, tobacco dependency, dependence on THC, acute urinary incontinence. Surgical history colonoscopy, EGD, history of foot surgery. PREVIOUS FUNCTIONAL STATUS/SOCIAL/FAMILY SUPPORTS:: Alton lives with his mother in [facility]. He is independent with ADLs, and transportation. He is currently unemployed and applying for disability, he is establishing care with [facility] to treat his mental health. 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 He has been out of work for the past 3 years and is applying for disability related to his mental health and physical health. CURRENT FUNCTIONAL STATUS:: Alton is alert, his mother is present in the room and speaks for him often. Alton does report that he is feeling better, especially after his iron infusion. He is waiting to see the provider, he is unsure of the discharge plan. ADVANCE DIRECTIVES:: None on file, offered forms, patient does not want to complete today but will bring them with him. Has patient been provided with information about the portal?: Yes Did the patient sign up for the portal?: No CODE STATUS:: Full Code INSURANCE COVERAGE / FINANCIAL ISSUES:: Medicaid CURRENT HOME/COMMUNITY SERVICES/EQUIPMENT:: None per report. Establishing care with [facility], and application pending for disability. Patient receives outpatient infusion for iron here at [facility]. PRIMARY CARE PHYSICIAN:: Greg Jordan POTENTIAL DISCHARGE NEEDS:: Follow-up appointment with primary care or surgical services as directed. PATIENT/FAMILY EDUCATION NEEDS:: Discharge education, limitations, follow-up plan of care, asked me 3 and self-management. ANTICIPATED BARRIERS TO DISCHARGE:: None TRANSPORTATION:: Via private car with his mother at time of discharge. PLAN:: Alton will be discharged when medically ready. No additional services anticipated. CM to continue to provide support discharge planning.
--- NOTE | 2019-11-29 15:19 | PHARADMIT ---
Admission Pharmacy Clinical Review anemia, intractible vomiting Code Status Full Code Current Weight 56.699 kg Renally Cleared and Narrow Therapeutic Index Meds Crcl ~81.7 mL/min QTc Value / Action Taken QTc 472 citalopram and ondansetron BP Control, Fever BP 106/64 afebrile Electrolytes reviewed K+ 3.4 mag 1.7 DVT Prophylaxis none Opiate Usage / Scheduled Bowel Regimen Ordered no/no Plt/SCr for Heparin / Enoxaparin plt 109 SCr 0.41 INR for Warfarin n/a H/H stable, WBC/Bands h/h 8.2/29.1 wbc 5.47 Antibiotic appropriateness ceftriaxone Cultures and Sensitivities blood culture- prelim gram+ cocci blood cultures-pending rapid flu- negatve Surgical ABX d/c within 24 hr n/a DM control / Insulin Dosing BG 70 none Heart Failure (Check EF%) (LEW's, B-Block, Diuretics) propranolol IV to PO Switch n/a Home Meds Reviewed propranolol may diminish the bronchodilatory effect of albuterol Home Meds Not Ordered folic acid, therapeutic-m, zolpidem Comments iron sucrose and mag replacement ordered for today
--- NOTE | 2019-11-29 15:31 | DSE_ITS ---
Date of service: 11/29/19 Time of Service: 15:31 DS: Diagnosis Discharge Diagnosis (1) Intractable vomiting: Status: Acute (2) Chronic iron deficiency anemia: Status: Acute (3) COPD (chronic obstructive pulmonary disease): Status: Chronic (4) Depression with anxiety: Status: Acute (5) Barretts esophagus: Status: Acute (6) Alcohol use disorder: Status: Acute (7) Smoker unmotivated to quit: Status: Acute (8) Dehydration, mild: Status: Acute (9) Hypokalemia due to excessive gastrointestinal loss of potassium: Status: Acute (10) Tetrahydrocannabinol (THC) use disorder, moderate, dependence: Status: Acute (11) Atherosclerosis of abdominal aorta: Status: Acute (12) Gastroenteritis: Status: Acute (13) Kidney stone on right side: Status: Acute Discharge Plan Disposition Patient Disposition: HOME Condition: Good Discharge Details Chief Complaint: Chest Pain Clinical Impression: Vomiting, Enteritis, Acidosis, lactic, Acute dehydration Reason For Visit: ANEMIA/INTRACTIBLE VOMITING Admit Date/Time: 11/28/19 18:06 Admit Provider: Gabriella Strickland Attending Provider: Gabriella Strickland Primary Care Provider: Greg Jordan ED Provider: Dewayne Gamez Home Meds and New Rx's Prescriptions: No Action zolpidem [Ambien] 5 MG tablet 10 mg PO HS RF: 0 pantoprazole 40 MG tablet,delayed release (DR/EC) 40 mg PO DAILY@0730 Qty: 30 RF: 0 propranolol 10 mg Tablet 10 mg PO DAILY RF: 0 albuterol sulfate 90 mcg/actuation Hfa Aerosol Inhaler 2 puff INHALATION Q4H PRNRF: 0 folic acid 1 MG tablet 1 mg PO DAILY Qty: 30 RF: 0 Therapeutic-M 1 TAB tablet 1 tab PO DAILY Qty: 30 RF: 0 Spiriva with HandiHaler 18 mcg Capsule, W/Inhalation Device 1 cap INHALATION DAILY RF: 0 Discharge Instructions Additional Instructions: -stop smoking -No alcohol x 72 hrs Activity:: no strenuous activity x 48 hrs Equipment/Supplies:: No Equipment Needed Diet:: high protein. 8-12 glasses h2O daily DS: Summary Status at Discharge Functional status at discharge: independent ambulation Overall status at discharge: patient is back to baseline Mental Status: mental status grossly normal Speech and Movement: speech and movement normal Mood: congruent mood Affect: normal affect Exam Psych Mental Status: mental status grossly normal Speech and Movement: speech and movement normal Mood: congruent mood Affect: normal affect DS: Data Vitals/I&O Vitals and I&O: Vital Signs Temperature 37.2 C 11/29/19 09:55 Temperature Source Tympanic 11/29/19 09:55 Pulse 86 11/29/19 09:55 Pulse Rhythm Regular 11/29/19 07:25 Pulse 78 11/28/19 18:01 Respiratory Rate 18 11/29/19 09:55 Respiratory Effort Non-Labored 11/29/19 07:25 Respiratory Depth Normal 11/29/19 07:25 Respiratory Pattern Normal 11/29/19 07:25 Blood Pressure 106/64 11/29/19 09:55 Blood Pressure Mean 81 11/28/19 18:00 Blood Pressure Position Supine 11/28/19 14:44 Pulse Oximetry 99 11/29/19 09:55 Oxygen Delivery Method Room Air 11/29/19 09:55 Oxygen Flow Rate 0 11/29/19 09:55 Pain Level 1 11/29/19 09:55 Comment 11/28/19 16:48 Intake & Output 11/28/19 11/29/19 11/29/19 23:59 11:59 23:59 Intake Total 3200 / 3200 2000 / 2100 100 / 2100 Output Total 700 / 700 550 / 650 100 / 650 Balance 2500 / 2500 1450 / 1450 0 / 1450 Weight 56.699 kg Intake: IV 3200 / 3200 1950 / 2050 100 / 2050 Oral 50 / 50 Output: Urine 700 / 700 550 / 650 100 / 650 Other: Urine Color Yellow Dark Lou Dark Lou Urine Appearance Clear Clear Clear Urine Odor Normal Comment pt voided in the toilet Stool Size Moderate Stool Characteristics Liquid Voiding Methods Toilet Urinal Data Completed and Pending Labs on day of discharge: Labs from last 24 hours 11/29/19 11/29/19 11/29/19 13:20 13:20 13:20 WBC RBC Hgb Hct MCV MCH MCHC RDW Plt Count MPV Immature Gran % Neutrophils % Lymphocytes % Monocytes % Eosinophils % Basophils % Absolute Neutrophils Absolute Lymphocytes Absolute Monocytes Absolute Eosinophils Absolute Basophils Differential Comment RBC Morphology Hypochromasia Anisocytosis Target Cells ESR 7 Sodium Potassium Chloride Carbon Dioxide Anion Gap BUN Creatinine Estimated GFR/1.73 m2 Glucose Lactate Calcium Magnesium Iron TIBC Transferrin % Sat Total Bilirubin AST ALT Alkaline Phosphatase Troponin I C-Reactive Protein 0.54 H Total Protein Albumin Lipase TSH Procalcitonin < 0.1 Urine Color Urine Clarity Urine pH Ur Specific [place] Urine Protein Urine Ketones Urine Blood Urine Nitrite Urine Bilirubin Urine Urobilinogen Ur Leukocyte Esterase Urine Glucose Ethyl Alcohol Pathology Consult Spec Patient ABO/Rh Antibody Screen 11/29/19 11/29/19 11/29/19 07:20 07:20 07:20 WBC 5.47 RBC 3.57 L Hgb 8.2 L Hct 29.1 L MCV 81.5 MCH 23.0 L MCHC 28.2 L RDW 23.4 H Plt Count 109 L MPV 9.5 Immature Gran % 0.2 Neutrophils % 74.4 Lymphocytes % 11.3 Monocytes % 13.3 Eosinophils % 0.4 Basophils % 0.4 Absolute Neutrophils 4.07 Absolute Lymphocytes 0.62 L Absolute Monocytes 0.73 H Absolute Eosinophils 0.02 Absolute Basophils 0.02 Differential Comment RBC Morphology Hypochromasia Anisocytosis Target Cells ESR Sodium 142 Potassium 3.4 L Chloride 104 Carbon Dioxide 25.9 Anion Gap 12.1 H BUN 3 L Creatinine 0.41 L Estimated GFR/1.73 m2 >= 60.00 Glucose 70 L Lactate 0.6 Calcium 7.7 L Magnesium 1.7 L Iron TIBC Transferrin % Sat Total Bilirubin 0.5 AST 35 ALT 20 Alkaline Phosphatase 46 Troponin I C-Reactive Protein Total Protein 5.3 L Albumin 2.3 L Lipase TSH Procalcitonin Urine Color Urine Clarity Urine pH Ur Specific [place] Urine Protein Urine Ketones Urine Blood Urine Nitrite Urine Bilirubin Urine Urobilinogen Ur Leukocyte Esterase Urine Glucose Ethyl Alcohol Pathology Consult Spec Patient ABO/Rh Antibody Screen 11/29/19 11/28/19 11/28/19 07:20 18:50 18:50 WBC RBC Hgb Hct MCV MCH MCHC RDW Plt Count MPV Immature Gran % Neutrophils % Lymphocytes % Monocytes % Eosinophils % Basophils % Absolute Neutrophils Absolute Lymphocytes Absolute Monocytes Absolute Eosinophils Absolute Basophils Differential Comment RBC Morphology Hypochromasia Anisocytosis Target Cells ESR Sodium Potassium Chloride Carbon Dioxide Anion Gap BUN Creatinine Estimated GFR/1.73 m2 Glucose Lactate Calcium Magnesium 1.0 L Iron TIBC Transferrin % Sat Total Bilirubin AST ALT Alkaline Phosphatase Troponin I < 0.05 C-Reactive Protein Total Protein Albumin Lipase TSH 3.42 Procalcitonin Urine Color Urine Clarity Urine pH Ur Specific [place] Urine Protein Urine Ketones Urine Blood Urine Nitrite Urine Bilirubin Urine Urobilinogen Ur Leukocyte Esterase Urine Glucose Ethyl Alcohol Pathology Consult Spec Patient ABO/Rh Antibody Screen 11/28/19 11/28/19 11/28/19 18:50 18:21 17:40 WBC RBC Hgb Hct MCV MCH MCHC RDW Plt Count MPV Immature Gran % Neutrophils % Lymphocytes % Monocytes % Eosinophils % Basophils % Absolute Neutrophils Absolute Lymphocytes Absolute Monocytes Absolute Eosinophils Absolute Basophils Differential Comment RBC Morphology Hypochromasia Anisocytosis Target Cells ESR Sodium Potassium Chloride Carbon Dioxide Anion Gap BUN Creatinine Estimated GFR/1.73 m2 Glucose Lactate 5.5 H* Calcium Magnesium Iron TIBC Transferrin % Sat Total Bilirubin AST ALT Alkaline Phosphatase Troponin I C-Reactive Protein Total Protein Albumin Lipase TSH Procalcitonin Urine Color Urine Clarity Urine pH Ur Specific [place] Urine Protein Urine Ketones Urine Blood Urine Nitrite Urine Bilirubin Urine Urobilinogen Ur Leukocyte Esterase Urine Glucose Ethyl Alcohol Pathology Consult Spec Cancelled Patient ABO/Rh A Negative Antibody Screen Negative 11/28/19 11/28/19 11/28/19 17:40 16:11 15:45 WBC RBC Hgb Hct MCV MCH MCHC RDW Plt Count MPV Immature Gran % Neutrophils % Lymphocytes % Monocytes % Eosinophils % Basophils % Absolute Neutrophils Absolute Lymphocytes Absolute Monocytes Absolute Eosinophils Absolute Basophils Differential Comment RBC Morphology Hypochromasia Anisocytosis Target Cells ESR Sodium Potassium Chloride Carbon Dioxide Anion Gap BUN Creatinine Estimated GFR/1.73 m2 Glucose Lactate Calcium Magnesium Iron 15 L TIBC 212 L Transferrin % Sat 7 L Total Bilirubin AST ALT Alkaline Phosphatase Troponin I < 0.05 C-Reactive Protein Total Protein Albumin Lipase TSH Procalcitonin Urine Color Yellow Urine Clarity Clear Urine pH 6.0 Ur Specific [place] >= 1.030 H Urine Protein Negative Urine Ketones 40 H Urine Blood Negative Urine Nitrite Negative Urine Bilirubin Negative Urine Urobilinogen 0.2 Ur Leukocyte Esterase Negative Urine Glucose Negative Ethyl Alcohol Pathology Consult Spec Patient ABO/Rh Antibody Screen 11/28/19 11/28/19 11/28/19 14:55 14:55 14:55 WBC RBC Hgb Hct MCV MCH MCHC RDW Plt Count MPV Immature Gran % 0.3 Neutrophils % 74.3 Lymphocytes % 14.1 Monocytes % 10.3 Eosinophils % 0.3 Basophils % 0.7 Absolute Neutrophils 5.11 Absolute Lymphocytes 0.97 L Absolute Monocytes 0.71 H Absolute Eosinophils 0.02 Absolute Basophils 0.05 Differential Comment Rbc morph reviewed RBC Morphology See below Hypochromasia 1+ Anisocytosis 3+ Target Cells 2+ ESR Sodium 143 Potassium 3.4 L Chloride 101 Carbon Dioxide 24.3 Anion Gap 17.7 H BUN 4 L Creatinine 0.58 L Estimated GFR/1.73 m2 >= 60.00 Glucose 116 H Lactate Calcium 8.7 Magnesium Iron TIBC Transferrin % Sat Total Bilirubin 0.6 AST 52 H ALT 32 Alkaline Phosphatase 62 Troponin I < 0.05 C-Reactive Protein Total Protein 7.1 Albumin 3.3 L Lipase 58 TSH Procalcitonin Urine Color Urine Clarity Urine pH Ur Specific [place] Urine Protein Urine Ketones Urine Blood Urine Nitrite Urine Bilirubin Urine Urobilinogen Ur Leukocyte Esterase Urine Glucose Ethyl Alcohol 107.6 Pathology Consult Spec Patient ABO/Rh Antibody Screen 11/29/19 13:20 Blood Blood Culture - Pending 11/29/19 13:20 Blood Blood Culture - Pending Preliminary micro results at discharge 11/29/19 13:20 Blood Culture - Pending Blood 11/29/19 13:20 Blood Culture - Pending Blood 11/28/19 15:45 Blood Culture - Preliminary Blood 11/28/19 15:40 Blood Culture - Preliminary Blood [facility] Medical History (Updated 11/28/19 @ 20:49 by Gabriella Strickland DO) Atherosclerosis of abdominal aorta (Acute) Barretts esophagus (Acute) Bone spur of foot (Acute) Chronic iron deficiency anemia (Acute) COPD (chronic obstructive pulmonary disease) (Chronic) DDD (degenerative disc disease) (Acute) Depression with anxiety (Acute) Diverticulosis (Acute) Essential tremor (Acute) Fatty liver (Acute) Hyperlipemia (Acute) Osteoarthritis (arthritis due to wear and tear of joints) (Chronic) Smoker unmotivated to quit (Acute) Tetrahydrocannabinol (THC) use disorder, moderate, dependence (Acute) Urinary incontinence (Acute) Surgical History (Updated 11/28/19 @ 20:38 by Gabriella Strickland DO) History of foot surgery (Acute) Hx of colonoscopy (Chronic) Hx of esophagogastroduodenoscopy (Chronic) Social History Smoking/Tobacco Use Status: Current every day Drug use: Daily Substance use type: marijuana Do you feel safe at home: Yes Do you feel safe in your relationship?: Yes
--- NOTE | 2019-11-29 15:53 | W.PM.PROGNOT ---
Date of Service Date of service: 11/29/19 Time of Service: 15:53 Assessment and Plan Assessment and plan (1) Gastroenteritis: Status: Acute Assessment and plan: pt doing well. no pain or vomting today pt did have 2/2 pt blood cults for +cocci. I do feel these are contaminants and that he is stable to go home. There is absolutely no source of infection. He displays no sign of sepsis. All his markers for sepsis and infection are normal. (2) Hypokalemia due to excessive gastrointestinal loss of potassium: Status: Acute (3) Dehydration, mild: Status: Acute (4) Smoker unmotivated to quit: Status: Acute (5) Intractable vomiting: Status: Acute (6) Chronic iron deficiency anemia: Status: Acute Assessment and plan: cont w/ scheduled doses of Venofer in outpt infusion -cont PPI -high protein diet and protein supp -stop smoking tob and drinking ETOH -cont po Fe -F/u w/ PCP as scheduled. -cont same po meds as prior to admission. No changes in meds or dosing schedule. no new Rx needed. BRAT diet for next 24 hrs minmal activity return to ED if recurrent n/v. (7) COPD (chronic obstructive pulmonary disease): Status: Chronic (8) Barretts esophagus: Status: Acute (9) Alcohol use disorder: Status: Acute Subjective Subjective Interval history since last seen: pt states he feels good today. no fever/chills. no headaches. No CP or SOB. no productive cough. no dysuria. no leg pain or swelling. no abdominal pain at all. His first stool this am was liquid. He had a second stool this afternoon that was formed. No blood. He has vomiting any blood or thrown up any blood. He was able to tolerate soft diet. He is very tremulous, but scored a 4 on CIWA scale. He very much wants to go home. His hgb is only 8.2. He does not want a transfusion and wants to go home. He did receive a dose of Venofer while he was in the hosp. His Fe- 15. Exam Const General: cooperative, comfortable, well groomed and anxious Nutritional Appearance: cachectic and malnourished Orientation: alert, awake and oriented x3 HENMT Head: normal to inspection, normocephalic and atraumatic Ears: hearing grossly normal bilaterally and external ears normal General nose exam: external nose normal Face and sinus: normal facial exam and sinuses nontender Mouth: oral mucosae normal, lip normal, tongue normal and moist mucous membranes Teeth and gingiva: dentition normal Eyes General: appearance normal, both eyes and all related structures Conjunctivae: conjunctivae normal Sclera: sclerae normal Pupils: PERRL Neck Neck: normal visual inspection and full ROM Chest Chest: normal inspection of the chest Resp Effort & Inspection: normal respiratory effort, able to speak in complete sentences, no cough, no nasal flaring, not tachypneic and no use of accessory muscles Auscultation: clear to auscultation bilaterally, no rales, no rhonchi and no wheezes Cardio Jugular venous pressure: no JVD Rate: regular rate Rhythm: regular rhythm GI Inspection: normal to inspection, no edema and non-distended Palpation: soft, no masses, nontender and No ascites Auscultation: normal bowel sounds Skin General skin exam: no rashes or lesions noted Trauma: no lacerations or abrasions Neuro General: alert, oriented x3, oriented, gait normal, moves all extremities, no focal motor deficits and CN's II-XI intact bilaterally Cognition: normal cognition Speech: speech normal Gait: normal gait Motor: muscle tone normal throughout Extrem General: normal to inspection, full ROM and no clubbing, cyanosis or edema Psych Appearance: grossly normal and well kempt Mental Status: mental status grossly normal Speech and Movement: speech and movement normal Affect: normal affect Objective Objective Clinical Data: Abnormal lab results 11/28/19 11/28/19 11/28/19 Range/Units 14:55 15:45 16:11 RBC (4.50-6.00) m/cumm Hgb (13.5-17.5) g/dL Hct (40.0-50.0) % MCH (27.0-33.0) pg MCHC (32.0-36.0) g/dL RDW (11.8-14.1) % Plt Count (130-400) x1000/uL Absolute Lymphocytes 0.97 L (1.2-3.4) k/cumm Absolute Monocytes 0.71 H (0.11-0.7) k/cumm Potassium (3.5-5.1) mmol/L Anion Gap (3-11) mmol/L BUN (7-18) mg/dL Creatinine (0.70-1.30) mg/dL Glucose (74-106) mg/dL Lactate (0.6-1.4) mmol/L Calcium (8.5-10.1) mg/dL Magnesium (1.8-2.4) mg/dL Iron 15 L (65-175) ug/dL TIBC 212 L (250-450) ug/dL Transferrin % Sat 7 L (20-55) % C-Reactive Protein (0.0-0.3) mg/dL Total Protein (6.4-8.2) g/dL Albumin (3.4-5.0) g/dL Ur Specific [place] >= 1.030 H (1.005-1.025) Urine Ketones 40 H (Negative) mg/dL 11/28/19 11/28/19 11/29/19 Range/Units 17:40 18:50 07:20 RBC (4.50-6.00) m/cumm Hgb (13.5-17.5) g/dL Hct (40.0-50.0) % MCH (27.0-33.0) pg MCHC (32.0-36.0) g/dL RDW (11.8-14.1) % Plt Count (130-400) x1000/uL Absolute Lymphocytes (1.2-3.4) k/cumm Absolute Monocytes (0.11-0.7) k/cumm Potassium 3.4 L (3.5-5.1) mmol/L Anion Gap 12.1 H (3-11) mmol/L BUN 3 L (7-18) mg/dL Creatinine 0.41 L (0.70-1.30) mg/dL Glucose 70 L (74-106) mg/dL Lactate 5.5 H* (0.6-1.4) mmol/L Calcium 7.7 L (8.5-10.1) mg/dL Magnesium 1.0 L 1.7 L (1.8-2.4) mg/dL Iron (65-175) ug/dL TIBC (250-450) ug/dL Transferrin % Sat (20-55) % C-Reactive Protein (0.0-0.3) mg/dL Total Protein 5.3 L (6.4-8.2) g/dL Albumin 2.3 L (3.4-5.0) g/dL Ur Specific [place] (1.005-1.025) Urine Ketones (Negative) mg/dL 11/29/19 11/29/19 Range/Units 07:20 13:20 RBC 3.57 L (4.50-6.00) m/cumm Hgb 8.2 L (13.5-17.5) g/dL Hct 29.1 L (40.0-50.0) % MCH 23.0 L (27.0-33.0) pg MCHC 28.2 L (32.0-36.0) g/dL RDW 23.4 H (11.8-14.1) % Plt Count 109 L (130-400) x1000/uL Absolute Lymphocytes 0.62 L (1.2-3.4) k/cumm Absolute Monocytes 0.73 H (0.11-0.7) k/cumm Potassium (3.5-5.1) mmol/L Anion Gap (3-11) mmol/L BUN (7-18) mg/dL Creatinine (0.70-1.30) mg/dL Glucose (74-106) mg/dL Lactate (0.6-1.4) mmol/L Calcium (8.5-10.1) mg/dL Magnesium (1.8-2.4) mg/dL Iron (65-175) ug/dL TIBC (250-450) ug/dL Transferrin % Sat (20-55) % C-Reactive Protein 0.54 H (0.0-0.3) mg/dL Total Protein (6.4-8.2) g/dL Albumin (3.4-5.0) g/dL Ur Specific [place] (1.005-1.025) Urine Ketones (Negative) mg/dL Vital Signs Temperature 36.5 C 11/29/19 15:38 Temperature Source Tympanic 11/29/19 15:38 Pulse 69 11/29/19 15:38 Pulse Rhythm Regular 11/29/19 07:25 Pulse 78 11/28/19 18:01 Respiratory Rate 20 11/29/19 15:38 Respiratory Effort Non-Labored 11/29/19 07:25 Respiratory Depth Normal 01/24/20 07:25 Respiratory Pattern Normal 11/29/19 07:25 Blood Pressure 131/78 11/29/19 15:38 Blood Pressure Mean 81 11/28/19 18:00 Blood Pressure Position Supine 11/28/19 14:44 Pulse Oximetry 95 11/29/19 15:38 Oxygen Delivery Method Room Air 11/29/19 15:38 Oxygen Flow Rate 0 11/29/19 15:38 Pain Level 0 11/29/19 15:38 Comment 11/28/19 16:48 Intake & Output 11/28/19 11/29/19 11/29/19 23:59 11:59 23:59 Intake Total 3200 / 3200 2000 / 2100 100 / 2100 Output Total 700 / 700 550 / 650 100 / 650 Balance 2500 / 2500 1450 / 1450 0 / 1450 Weight 56.699 kg Intake: IV 3200 / 3200 1949 / 0 100 / 2050 Oral 50 / 50 Output: Urine 700 / 700 550 / 650 100 / 650 Other: Urine Color Yellow Dark Lou Dark Lou Urine Appearance Clear Clear Clear Urine Odor Normal Comment pt voided in the toilet Stool Size Moderate Stool Characteristics Liquid Voiding Methods Toilet Urinal Laboratory Results WBC 5.47 k/cumm (4.4-10.8) 11/29/19 07:20 RBC 3.57 m/cumm (4.50-6.00) L 11/29/19 07:20 Hgb 8.2 g/dL (13.5-17.5) L 11/29/19 07:20 Hct 29.1 % (40.0-50.0) L 11/29/19 07:20 MCV 81.5 fL (80-95) 11/29/19 07:20 MCH 23.0 pg (27.0-33.0) L 11/29/19 07:20 MCHC 28.2 g/dL (32.0-36.0) L 11/29/19 07:20 RDW 23.4 % (11.8-14.1) H 11/29/19 07:20 Plt Count 109 x1000/uL (130-400) L 11/29/19 07:20 MPV 9.5 fL (8.0-11.0) 11/29/19 07:20 Immature Gran % 0.2 % 11/29/19 07:20 Neutrophils % 74.4 11/29/19 07:20 Lymphocytes % 11.3 11/29/19 07:20 Monocytes % 13.3 11/29/19 07:20 Eosinophils % 0.4 11/29/19 07:20 Basophils % 0.4 11/29/19 07:20 Absolute Neutrophils 4.07 k/cumm (1.2-6.7) 11/29/19 07:20 Absolute Lymphocytes 0.62 k/cumm (1.2-3.4) L 11/29/19 07:20 Absolute Monocytes 0.73 k/cumm (0.11-0.7) H 11/29/19 07:20 Absolute Eosinophils 0.02 k/cumm (0.0-0.7) 11/29/19 07:20 Absolute Basophils 0.02 k/cumm (0.0-0.2) 11/29/19 07:20 Differential Comment Rbc morph reviewed 11/28/19 14:55 RBC Morphology See below 11/28/19 14:55 Hypochromasia 1+ 11/28/19 14:55 Anisocytosis 3+ 11/28/19 14:55 Target Cells 2+ 11/28/19 14:55 ESR 7 mm/hr (1-20) 11/29/19 13:20 Sodium 142 mmol/L (136-145) 11/29/19 07:20 Potassium 3.4 mmol/L (3.5-5.1) L 11/29/19 07:20 Chloride 104 mmol/L (98-107) 11/29/19 07:20 Carbon Dioxide 25.9 mmol/L (21.0-32.0) 11/29/19 07:20 Anion Gap 12.1 mmol/L (3-11) H 11/29/19 07:20 BUN 3 mg/dL (7-18) L 11/29/19 07:20 Creatinine 0.41 mg/dL (0.70-1.30) L 11/29/19 07:20 Estimated GFR/1.73 m2 >= 60.00 (mL/min/1.73m2) 11/29/19 07:20 Glucose 70 mg/dL (74-106) L 11/29/19 07:20 Lactate 0.6 mmol/L (0.6-1.4) 11/29/19 07:20 Calcium 7.7 mg/dL (8.5-10.1) L 11/29/19 07:20 Magnesium 1.7 mg/dL (1.8-2.4) L 11/29/19 07:20 Iron 15 ug/dL (65-175) L 11/28/19 15:45 TIBC 212 ug/dL (250-450) L 11/28/19 15:45 Transferrin % Sat 7 % (20-55) L 11/28/19 15:45 Total Bilirubin 0.5 mg/dL (0.2-1.0) 11/29/19 07:20 AST 35 U/L (15-37) 11/29/19 07:20 ALT 20 U/L (16-63) 11/29/19 07:20 Alkaline Phosphatase 46 U/L (46-116) 11/29/19 07:20 Troponin I < 0.05 ng/Ml (<0.06) 11/29/19 07:20 C-Reactive Protein 0.54 mg/dL (0.0-0.3) H 11/29/19 13:20 Total Protein 5.3 g/dL (6.4-8.2) L 11/29/19 07:20 Albumin 2.3 g/dL (3.4-5.0) L 11/29/19 07:20 Lipase 58 U/L (73-393) 11/28/19 14:55 TSH 3.42 uIU/mL (0.36-3.74) 11/28/19 18:50 Procalcitonin < 0.1 ng/mL 11/29/19 13:20 Urine Color Yellow (Yellow) 11/28/19 16:11 Urine Clarity Clear (Clear) 11/28/19 16:11 Urine pH 6.0 (5-8) 11/28/19 16:11 Ur Specific [place] >= 1.030 (1.005-1.025) H 11/28/19 16:11 Urine Protein Negative mg/dL (Negative) 11/28/19 16:11 Urine Ketones 40 mg/dL (Negative) H 11/28/19 16:11 Urine Blood Negative (Negative) 11/28/19 16:11 Urine Nitrite Negative (Negative) 11/28/19 16:11 Urine Bilirubin Negative (Negative) 11/28/19 16:11 Urine Urobilinogen 0.2 EU/dL (Up TO 0.2) 11/28/19 16:11 Ur Leukocyte Esterase Negative (Negative) 11/28/19 16:11 Urine Glucose Negative mg/dL (Negative) 11/28/19 16:11 Ethyl Alcohol 107.6 mg/dL (<3) 11/28/19 14:55 Pathology Consult Spec Cancelled 11/28/19 18:21 Patient ABO/Rh A Negative 11/28/19 18:50 Antibody Screen Negative 11/28/19 18:50
== END 2019-11-29 16:24 | disposition home or self-care (01) | DRG 392 ==
LOC: ER 18:31 → MS 19:19
PROVIDERS: Admitting Provider Surgery; Emergency Provider Student in an Organized Health Care Education/Training Program; PCP Specialist/Technologist Athletic Trainer; Visit Provider Surgery
DX: K52.89 Other specified noninfective gastroenteritis and colitis (principal); E87.6 Hypokalemia; F10.20 Alcohol dependence, uncomplicated; R11.10 Vomiting, unspecified; D50.9 Iron deficiency anemia, unspecified; E86.0 Dehydration; J44.9 Chronic obstructive pulmonary disease, unspecified; F41.8 Other specified anxiety disorders; K22.70 Barrett's esophagus without dysplasia; F17.210 Nicotine dependence, cigarettes, uncomplicated; F12.20 Cannabis dependence, uncomplicated; N20.0 Calculus of kidney; I70.0 Atherosclerosis of aorta; E78.5 Hyperlipidemia, unspecified
CPT/HCPCS: 36410; 36415; 74175; 80053; 83690; 84145; 85652; 86850; 86900; 86901; 87040; 87077; 87449; 93005; 94640; 96361; 96374; 96375; 96376; 99222; 99233; 99238; 99285; 71260; 80320; 81003; 83540; 83550; 83605; 83735; 84443; 84484; 85025; 86140; 93010; J0780; J1756; J2060; J2405; J2765; J3475; J3480; J3490; Q9967

== ENCOUNTER 2020-02-05 05:42 | Outpatient (CLI) | payer MEDICAID, SELFPAY ==
[2020-02-08 10:20] LABS: SARS-CoV-2 RNA Undetected (Undetected); SARS-CoV-2 Specimen Source Nasopharynx
== END 2020-02-05 06:02 ==
PROVIDERS: PCP Family Medicine; Visit Provider Family Medicine
DX: Z11.59 Encounter for screening for other viral diseases (principal)
CPT/HCPCS: U0003

== ENCOUNTER 2020-02-22 19:27 | Inpatient (IN) | payer MEDICAID, SELFPAY ==
[2020-02-22] VITALS (18 sets, daily range): BP systolic 79–109; BP diastolic 45–72; PULSE 72–108; RESP 17–24; TEMP 36.9–38.4; O2SAT 92–100
--- NOTE | 2020-02-22 19:45 | DI.CT_ITS ---
EXAM: CT CHEST PE ABD PELVIS W CLINICAL HISTORY: fever, hypotension, r/o acute dz TECHNIQUE: Axial CT angiography was performed with multi-slice acquisition and multi-planar and/or 3 D reconstructions. COMPARISON: CT ABDOMEN CTA from 11/28/2019 FINDINGS: CT examination of the chest, abdomen and pelvis was performed with a bolus infusion of 59 cc of Omnip aque 350. Note is made of comminuted fracture of the right clavicle medially which appears to show s ome callus formation and there are healing fractures of right 2nd and 3rd ribs noted as well anterior ly. No evidence of pulmonary embolic disease. No thoracic aortic aneurysm or dissection. No significant mediastinal or hilar adenopathy. There is moderate centrilobular emphysema predominantly in the upper lobes. Thickening of the interl obular septae noted particularly posteriorly and in the lung bases. Peribronchial thickening noted, diffuse, predominately involving lower lobes. No focal consolidation, no pneumothorax or pleural eff usion. There is marked hepatic steatosis. No focal hepatic lesion identified. Spleen is unremarkable. Adr enals and kidneys are unremarkable, no urinary tract calcification or obstruction. Pancreas appears normal. Gallbladder and bile ducts are CT normal. Abdominal aorta is of normal jacinta meter and no major vascular abnormality is seen. No significant abdominal wall hernia seen. No abdo jessie or pelvic adenopathy. Normal appearance of appendix. No evidence of bowel obstruction. Question mild thickening recto sig moid wall, inflammatory process not excluded, please correlate clinically. Prostate mildly enlarged and contains calcifications. IMPRESSION: No significant acute findings on scanning of the chest. Please see above discussion for discussion o f chronic changes. Question wall thickening rectosigmoid, proctocolitis not excluded, please correlate clinically. Hepatic steatosis noted
--- NOTE | 2020-02-22 19:56 | ED.GENADUL_ITS ---
Discharge Plan Disposition Patient Disposition: [facility] INPATIENT Condition: Critical Discharge Details Chief Complaint: GI Bleed Clinical Impression: Acute GI bleeding, Hypomagnesemia, Hypovolemic shock, Sepsis, Acute hypokalemia Admit Date/Time: 02/22/20 22:57 Admit Provider: Niels Frost Attending Provider: Niels Frost Primary Care Provider: Jonathan Black ED Provider: Dewayne Gamez Discharge Data Discharge Date/Time-TO BE ENTERED AT DEPARTURE: 02/23/20 01:55 Medical Decision Making <Sona Cardoso, - Last Filed: 02/23/20 12:15> 1928 -- 60-year-old male with a history of alcohol abuse, hepatitis, COPD, fatty liver, Hopson's esophagus presents for fever, black tarry stools with diarrhea, and generalized weakness. Patient was unaware of the fever. EMS states it was 102. Systolic blood pressure 70s per EMS which increased to 105 with fluids. Patient appears chronically ill, mildly jaundiced with lower extremity edema. He has dried feces to his lower extremities. His abdomen is soft but diffusely tender. Lungs clear. BP 109/62. Rectal temperature 38.4. Rectal exam noted black tarry stools, guaiac positive. Suspect acute GI bleeding associated with chronic alcoholism. Will start fluids, protonix iv dose and gtt. Will also obtain septic work-up, ct chest/abd/pelvis and consider r/o COVID, influenza, pneumonia, UTI, acute abdominal abnormality. 1999 -- Case endorsed to Dr. Gamez to f/u with results and final disposition. Medical Records Medical records reviewed: Yes I reviewed the patient's medical records. ECG Data Attestation: I personally reviewed and interpreted this ECG (s) as follows: Interpretation: Rate of 114, sinus, occasional PACs. No acute ST elevation or depression. MI 126. QTc 490. QRS 104. <Dewayne Gamez DO - Last Filed: 02/22/20 23:26> Upon my evaluation, this patient had a high probability of imminent or life- threatening deterioration, which required my direct attention, intervention, and personal management. I have personally provided 45 minutes of critical care time exclusive of time spent on separately billable procedures. Time includes review of laboratory data, radiology results, discussion with consultants, and monitoring for potential decompensation. Interventions were performed as documented. This is a 60-year-old male with a past medical history of previous GI bleeds, chronic alcoholism, COPD, who was initially seen and assessed by my colleague Dr. Sona Cardoso. Please refer to her initial documentation's assessment and plan. Patient came in with fever per EMS stating that he had been having diarrhea, black tarry stool for the last few days, had not been getting up or doing much. Per EMS he was febrile at 102, here in the ED is mildly febrile. Exam demonstrated mild abdominal tenderness, CT scan was ordered of the chest abdomen and pelvis. EKG showed no evidence of STEMI. Imaging shows no evidence of acute abdominal process aside from mild thickening of the rectosigmoid area. Mild bronchitis noted on chest CT as well. Laboratory work-up shows a hemoglobin of 4.7, hematocrit of 16, no white count, mild left shift, lactate was elevated at 3.1, potassium low at 2.5, mag low 1.4, surprisingly BUN was 4, creatinine 0.49, certainly not suggestive of an upper GI bleed. Hemoccult was positive. Troponin normal. Ethyl alcohol slightly elevated. 1 unit of PRBCs was placed as an poultry eviscerator on, unfortunately lab was not registering the order on their end. A second order of 2 units of PRBCs was later placed to remedy this. Here in the emergency department the patient has received 2 L of normal saline total 1 from EMS, 1 from here, and a subsequent liter of lactated Ringer's. Pressure did not significantly improve with this at all. What is been started, right IJ central line was placed for definitive venous access, we will hold off on starting Levophed until he is received some blood no any potential improvement however if he continues to drop in his pressures we will start pressors as indicated. What is been started. We have started Protonix infusion, we will start an octreotide infusion after discussion with hospitalist. We will start broad-spectrum antibiotics as his lactate is elevated, and he was febrile, however differential still certainly does include viral etiology including COVID and influenza. We will place the patient in MICU for this testing, and rule out. I did contact the surgeon Dr. Strickland, discussed the case with her, she is very familiar with the patient. She would like to be placed on consult with this patient to manage in conjunction with medicine. Currently the patient continues to deny any evidence of bright red blood per rectum or hematemesis, there is no bright red blood on stool Hemoccult by Dr. Cardoso. We will continue to monitor the patient closely, treat as indicated, admit to ICU level of care. I have extensively reviewed the treatment plan with the patient. I have addressed all patient concerns at this time. I have also discussed the plan with the admitting physician and they agree with the current assessment and plan and have agreed to assume responsibility for the patient. All parties demonstrate verbal understanding and agreement with our assessment and plan at this time. Also of note evaluation of the patient's IVC demonstrates a width of 1.5 cm, however with inspiration it only goes to 1.2 cm, certainly somewhat inconsistent with the patient's current clinical picture. Suspect a secondary component of more chronic increased venous pressure potentially secondary to chronic liver disease or portal hypertension. We will continue to treat with fluids blood and pressors as indicated. Exam type: diagnostic Indication for exam: hypotension, sepsis Views obtained and pictures saved: subxiphoid view of the IVC as it enters the right atrium on inspiration and exhalation. Diameter was measured approximately 2 cm from the atrial caval junction. Findings and interpretations: all views were adequate. The IVC measures 1.5cm and collapses <50% making a challenging evaluation of the a central venous pressure. However bedside examination of the right IJ demonstrates easy compressibility, suggesting volume depletion and low CVP in conjunction with abdominal findings. Procedure: Internal Jugular Central Venous Catheter Indication: Hemodynamic monitoring/Intravenous access PROCEDURE SUMMARY: A time-out was performed. The patient?s right neck region was prepped and draped in sterile fashion using chlorhexidine scrub. Anesthesia was achieved with 1% lidocaine. The internal jugular vein was accessed under ultrasound guidance using a finder needle.Venous blood was withdrawn. A guidewire was advanced through the needle. A small incision was made with a 10 blade scalpel and the dilator was advanced over the guidewire until appropriate dilation was obtained. The dilator was removed and a triple lumen catheter was advanced over the guidewire and secured into place with 2 simple interrupted sutures. At time of procedure completion, all ports aspirated and flushed properly. Post-procedure x-ray shows the tip of the catheter within the superior vena cava. ESTIMATED BLOOD LOSS: 5ml?s The patient tolerated the procedure well there were no complications. IMPRESSION: Right internal jugular central venous catheter in situ, terminating in the expec kae location of the superior vena cava. Thank you for allowing us to participate in the care of your patient. Dictated and Authenticated by: Jethro Metzger MD 02/22/2020 10:48 PM Eastern Time ([place] & [place]) IMPRESSION: 1. Markedly comminuted subacute fracture through the sternal head of the right clavicle. Subacute fractures through the anterolateral aspect of the right 2nd and 3rd ribs. Upper ribs partially excluded from view and incompletely evaluated. 2. Emphysema. 3. Mild thickening of the bronchial egan throughout the mid and lower lung zones. Chronic, acute, or recurrent bronchitis could produce this appearance. Clinical correlation is recommended. IMPRESSION: 1. Diffuse fatty infiltration of the liver. 2. Possible mild mural thickening through the distal sigmoid colon and rectum . Artifact of incomplete distention or acute proctocolitis could have this appearance. Clinical correlation is recommended. If proctocolitis is suspected clinically, infectious or inflammatory causes would be favored. This distribution would be atypical for ischemia. Otherwise, no acute bowel pathology demonstrated. 3. Mild prominence of the adrenal glands, larger on the left, with mild periadrenal fat stranding. This appearance is nonspecific although clinical correlation is recommended to assess the possibility of adrenal hyperplasia or other acute adrenal pathology. 4. Trace perisplenic fluid, nonspecific. Thank you for allowing us to participate in the care of your patient. Dictated and Authenticated by: Jethro Metzger MD 02/22/2020 10:24 PM Eastern Time ([place] & [place]) HPI <Sona Cardoso DO - Last Filed: 02/23/20 12:15> General Mode of arrival: EMS . Date/Time Provider Initiated Documentation: 02/22/20 20:05 . Limitations to Documentation: no limitations . Information obtained by: patient and EMS . HPI Narrative: Patient is a 60-year-old male with a history of alcohol abuse, GERD, hepatitis, fatty liver who presents for diffuse body pain, generalized weakness, black tarry stools and diarrhea for the past few weeks. Patient states he has had urinary incontinence and diarrhea for a long time . He states he drinks 2-3 beers daily and states his last drink was yesterday. He states he was too weak to get up from his floor yesterday due to weakness and remained on the floor until today. He also admits to decreased appetite. He denies any vomiting. He states he has a chronic cough with white sputum. He denies any chest pain, shortness of breath, abdominal pain. Related Data Home Medications Medication Instructions Recorded Confirmed zolpidem [Ambien] 10 mg PO HS tab-cap 08/14/17 02/22/20 Therapeutic-M 1 tab PO DAILY #30 tab 12/12/17 02/22/20 ferrous gluconate 324 mg (37.5 mg 324 mg PO DAILY 01/23/20 02/22/20 iron) tablet albuterol sulfate 90 mcg/actuation 2 puff INHALATION Q4H PRN #18 gm 02/14/20 02/22/20 aerosol inhaler tiotropium bromide 18 mcg capsule 1 cap INHALATION DAILY #60 inh 02/14/20 02/22/20 with inhalation device Previous Rx's Medication Instructions Recorded Therapeutic-M 1 tab PO DAILY #30 tab 12/12/17 albuterol sulfate 90 mcg/actuation 2 puff INHALATION Q4H PRN #18 gm 02/14/20 aerosol inhaler tiotropium bromide 18 mcg capsule 1 cap INHALATION DAILY #60 inh 02/14/20 with inhalation device Allergies Allergy/AdvReac Type Severity Reaction Status Date / Time No Known Allergies Allergy Unverified 11/28/19 14:47 General Stated Complaint: GI Bleed YOGI: 2 Review of Systems <Sona Cardoso DO - Last Filed: 02/23/20 12:15> All systems reviewed & are unremarkable except as noted in HPI and below Constitutional Constitutional: Reports as per HPI, Reports body ache(s), Denies chills, Reports fatigue, Denies fever(s) and Reports poor appetite Eyes Eyes: Denies blurry vision ENT Ears, Nose, Mouth, and Throat: Denies dizziness, Denies sore throat and Denies throat swelling Cardiovascular Cardiovascular: Denies chest pain and Denies dyspnea Respiratory Respiratory: Denies cough and Denies dyspnea Gastrointestinal Gastrointestinal: Denies abdominal pain, Reports melena, Reports diarrhea and Denies vomiting Genitourinary Genitourinary: Denies hematuria and Denies dysuria Musculoskeletal Musculoskeletal: Denies back pain and Denies numbness Integumentary/Breasts Skin/Breast: Denies lesions and Denies rash Neurologic Neurologic: Denies dizziness, Denies localized weakness and Denies numbness Endocrine Endocrine: Reports fatigue Allergic/Immunologic Allergic/Immunologic: Denies throat swelling [facility] <Sona Cardoso DO - Last Filed: 02/23/20 12:15> Medical History Abnormal abdominal CT scan (Inactive) Alcohol induced fatty liver (Acute) Alcohol use disorder (Acute) Anemia, iron deficiency (Acute) Arthritis (Acute) Atherosclerosis of abdominal aorta (Acute) Hopson's esophagus determined by endoscopy (Acute) Barretts esophagus (Acute) Bone spur of foot (Acute) Chronic iron deficiency anemia (Acute) COPD (chronic obstructive pulmonary disease) (Chronic) DDD (degenerative disc disease) (Acute) Dehydration (Resolved) Dehydration, mild (Acute) Depression (Chronic) Depression with anxiety (Acute) Diverticulosis (Acute) Erosive gastritis (Acute) Erosive gastritis (Acute) Esophageal reflux (Acute) Essential tremor (Acute) Fatty liver (Acute) Gastroenteritis (Resolved) Hematemesis (Acute) Hepatitis A (Acute) Hyperlipemia (Acute) Hypokalemia due to excessive gastrointestinal loss of potassium (Acute) Hypomagnesemia (Acute) Insomnia (Acute) Left knee pain (Acute) Low back pain (Acute) Nonspecific ST-T wave electrocardiographic changes (Acute) Osteoarthritis (arthritis due to wear and tear of joints) (Chronic) Rectal polyp (Acute) Smoker unmotivated to quit (Resolved) Tetrahydrocannabinol (THC) use disorder, moderate, dependence (Acute) Thrombocytopenia (Chronic) Tobacco use disorder (Acute) Transaminitis (Acute) Urinary incontinence (Acute) Urinary urgency (Acute 08/14/17) Surgical History History of foot surgery (Acute) Hx of colonoscopy (Chronic) Hx of esophagogastroduodenoscopy (Chronic) Family History Sister Anxiety Depression Father Cancer Social History Smoking/Tobacco Use Status: Current every day Tobacco Type: cigarettes Smoking packs per day: 1.5 Smoking cigarettes per day: 30.0 Alcohol Intake: current Alcohol Intake frequency: 3 or more drinks per day Alcohol type: beer Drug use: Daily Substance use type: marijuana Details: No IV Drug Use Adopted: No Caregiver/Support person: No Foster care: No Household members: none Housing: house Do you need help understanding health information?: Often current occupation: Unemployed Sexually active: No Do you think of yourself as: straight/heterosexual Current gender identity: male Do you feel safe at home: Yes Do you feel safe in your relationship?: Yes Exam <Sona Cardoso DO - Last Filed: 02/23/20 12:15> Const General: cooperative and ill appearing chronically Orientation: alert, awake and oriented x3 HENMT Head: normal to inspection Ears: hearing grossly normal bilaterally, external ears normal and TM's normal bilaterally General nose exam: external nose normal Face and sinus: normal facial exam Mouth: mucous membranes dry Teeth and gingiva: dentition normal Throat: posterior oropharynx normal Eyes General: appearance normal, both eyes and all related structures Eyelids: eyelids normal EOM: EOM intact bilaterally Neck Neck: normal visual inspection Lymphatic: no lymphadenopathy noted Chest Chest: normal inspection of the chest Resp Effort & Inspection: normal respiratory effort and able to speak in complete sentences Auscultation: clear to auscultation bilaterally Cardio Rate: regular rate Rhythm: regular rhythm GI Inspection: normal to inspection Palpation: soft, not firm, no guarding, no hepatosplenomegaly, no masses and tender (Diffusely) Auscultation: hypoactive bowel sounds Skin General skin exam: no rashes or lesions noted and jaundice (Mild) Other: Dried feces noted to bilateral lower extremities Neuro General: patient alert and patient awake Cognition: normal cognition Speech: speech normal Gait: normal gait Motor: muscle tone normal throughout Sensory Exam: no sensory deficits noted Extrem General: full ROM, capillary refill normal and edema Laterality: bilateral (1+) Psych Appearance: grossly normal Mental Status: mental status grossly normal Speech and Movement: speech and movement normal Affect: normal affect Thought Process: normal Course <Sona Cardoso DO - Last Filed: 02/23/20 12:15> Vital Signs Vital signs: Vital Signs Temperature 100 F H 02/22/20 19:28 Pulse 108 H 02/22/20 19:28 Respiratory Rate 17 02/22/20 19:28 Blood Pressure 109/62 02/22/20 19:28 Pulse Oximetry 95 02/22/20 19:28 Temperature 101.1 F H 02/22/20 19:44 Temperature Source Rectal 02/22/20 19:44 Pulse 108 H 02/22/20 19:28 Respiratory Rate 17 02/22/20 19:28 Respiratory Effort 02/22/20 19:46 Blood Pressure 109/62 02/22/20 19:28 Pulse Oximetry 95 02/22/20 19:28 Pain Level 0 02/22/20 19:28 Lab/Test Results Lab/Test Results: 02/22/20 19:51 Blood Blood Culture - Pending 02/22/20 19:51 Blood Blood Culture - Pending <Dewayne Gamez DO - Last Filed: 02/22/20 23:26> Central Line Placement Right IJ: Time Out Performed: Yes Patient Placed on Monitor/Pulse Ox: Yes MD Prep: mask, gown and gloves Central Line Prep: Chlorhexidine scrub and sterile drapes applied Local Anesthetic: Lidocaine 1% Amount of anesthesia used (mL): 3 Ultrasound Used for Placement: Yes Central Line Lumen Inserted: triple Post Procedure: good blood return, all ports aspirated, flushed, capped and sutured in place with 3-0 nylon Post Procedure X-Ray: tip of catheter in good position Patient Tolerated Procedure: well Complications: none Sign Out <Sona Cardoso DO - Last Filed: 02/23/20 12:15> Sign Out Data: Sign Out Comment: Follow-up with results and final disposition. Last updated by Sona Cardoso DO at 02/22/20 20:14
[2020-02-22] MEDS: Pantoprazole 40 MG VIAL IVP (20:13)
[2020-02-22] MEDS: Acetaminophen 500 MG TAB 1000 MG PO (20:13)
[2020-02-22] MEDS: Normal Saline 1,000 ML 1000 ML IV (20:14)
[2020-02-22] MEDS: PANTOPRAZOLE 80 MG in Normal Saline 100 ML 10 MG IV (20:17)
[2020-02-22 20:37] LABS: Abs Immature Grans 0.02 k/cumm (0.0-0.09); Absolute Basophil Count 0.01 k/cumm (0.0-0.2); Absolute Lymphocyte Count 0.23 k/cumm (1.2-3.4); Absolute Monocyte Count 0.77 k/cumm (0.11-0.7); Absolute Neutrophil Count 9.29 k/cumm (1.2-6.7); Basophils % 0.1; Immature Grans % 0.2 %; Lactate 3.1 mmol/L (0.6-1.4); Lymphocytes % 2.2; Mean Corpuscular Hemoglobin 24.9 pg (27.0-33.0); Mean Corpuscular Volume 85.7 fL (80-95); Mean Platelet Volume 9.7 fL (8.0-11.0); Monocytes % 7.5; Platelet Count 198 x1000/uL (130-400); RBC 1.89 m/cumm (4.50-6.00); RBC Distribution Width 19.9 % (11.8-14.1); White Blood Cell Count 10.32 k/cumm (4.4-10.8)
[2020-02-22 20:42] LABS: HCT 16.2 % (40.0-50.0); HGB 4.7 g/dL (13.5-17.5)
[2020-02-22 20:50] LABS: ETHANOL BLOOD 97.5 mg/dL (<3)
[2020-02-22 20:56] LABS: ALT 33 U/L (16-63); AST 80 U/L (15-37); Alkaline Phosphatase 47 U/L (46-116); Anion Gap 6.8 mmol/L (3-11); BUN 4 mg/dL (7-18); Bilirubin, Total 0.7 mg/dL (0.2-1.0); CO2 31.2 mmol/L (21.0-32.0); CREATININE 0.49 mg/dL (0.70-1.30); Calcium 7.1 mg/dL (8.5-10.1); Chloride 100 mmol/L (98-107); Creatine Kinase 15 U/L (39-308); Glucose 127 mg/dL (74-106); Magnesium 1.4 mg/dL (1.8-2.4); Sodium 138 mmol/L (136-145); Total Protein 5.1 g/dL (6.4-8.2); Troponin I < 0.05 ng/Ml (<0.06)
[2020-02-22 21:00] LABS: Potassium 2.5 mmol/L (3.5-5.1)
[2020-02-22 21:12] LABS: INR 1.2 (0.9-1.1); PTT Activated 25.6 sec (21.0-31.4); Prothrombin Time 11.6 sec (9.3-11.0)
--- NOTE | 2020-02-22 21:19 | W.SURGCON ---
Date of service: 02/23/20 Time of Service: 14:31 Assessment and Plan Assessment and plan (1) Alcohol use disorder: Status: Acute (2) Esophageal reflux: Status: Acute (3) Thrombocytopenia: Status: Chronic (4) Chronic iron deficiency anemia: Status: Acute (5) COPD (chronic obstructive pulmonary disease): Status: Chronic (6) Erosive gastritis: Status: Acute Assessment and plan: possible egd in am once transfused and his covid test has returned He is hemodyncamically stable and no signs of active bleeding he is on a PPI drip and carafate He has had mult CT's and EGD's in the past 6m. He continues to be anemic. [facility] [place] [facility] did recommend he have capsule endoscopy. He has a hx of ETOH use and non compliance. Abx were started for some findings of possible enteritis and inflammation in the sigmoid colon. (7) Hopson's esophagus determined by endoscopy: Status: Acute (8) Alcohol induced fatty liver: Status: Acute History of Present Illness Narrative: presents to ED for fever, black tarry stools with diarrhea, and generalized weakness. pt had an EGD in 10/24 which did show hital hernia/erosive gastritis/Hopson's. He had a full GI work-up at [facility] – [place]. Including EGD and CE and didn't really find any conclusive etiology for his Low Hgb. It was recommended he have a capsule endoscopy and stay on iron. Pt does have an extensive hx of ETOH abuse. He is also a smoker. He has had mult CT's and endos in the last 6m pt also has a hx of medical noncompliance. I did review the case w/ anesthesia and Hospitalists today 02/22. Clinically he is improved. He is off of pressers. He has no more abdominal pain. He is not vomiting blood. He was hungry and has tolerated cl liq. stool cultures were done. He is currently a covid rule out b/c he was reported to have a high fever by EMS. This is pd currently. I d/w case w/ anesthesia. giving his long standing hx of anemia and resent EGD's x2 that were more or less nl adn did not give an explanation for the GI bleed , and the fact that he is doing better clinically, they would prefer not to do anesthesia until we have the results of his Covid screening swab. He does not ahve a cough or any resp c/o. He CT of the chest shows no signs of acute covid- just COPD. He has not been having a high temp since he has been in the hosp. continue to follow for any signs of acute bleeding or hemodynamic instability and than will reconsider scoping. Consults Consult date: 02/22/20 [facility] Medical History Abnormal abdominal CT scan (Inactive) Alcohol induced fatty liver (Acute) Alcohol use disorder (Acute) Anemia, iron deficiency (Acute) Arthritis (Acute) Atherosclerosis of abdominal aorta (Acute) Hopson's esophagus determined by endoscopy (Acute) Barretts esophagus (Acute) Bone spur of foot (Acute) Chronic iron deficiency anemia (Acute) COPD (chronic obstructive pulmonary disease) (Chronic) DDD (degenerative disc disease) (Acute) Dehydration (Resolved) Dehydration, mild (Acute) Depression (Chronic) Depression with anxiety (Acute) Diverticulosis (Acute) Erosive gastritis (Acute) Erosive gastritis (Acute) Esophageal reflux (Acute) Essential tremor (Acute) Fatty liver (Acute) Gastroenteritis (Resolved) Hematemesis (Acute) Hepatitis A (Acute) Hyperlipemia (Acute) Hypokalemia due to excessive gastrointestinal loss of potassium (Acute) Hypomagnesemia (Acute) Insomnia (Acute) Left knee pain (Acute) Low back pain (Acute) Nonspecific ST-T wave electrocardiographic changes (Acute) Osteoarthritis (arthritis due to wear and tear of joints) (Chronic) Rectal polyp (Acute) Smoker unmotivated to quit (Resolved) Tetrahydrocannabinol (THC) use disorder, moderate, dependence (Acute) Thrombocytopenia (Chronic) Tobacco use disorder (Acute) Transaminitis (Acute) Urinary incontinence (Acute) Urinary urgency (Acute 08/14/17) Surgical History History of foot surgery (Acute) Hx of colonoscopy (Chronic) Hx of esophagogastroduodenoscopy (Chronic) Family History Sister Anxiety Depression Father Cancer Social History Smoking/Tobacco Use Status: Current every day Tobacco Type: cigarettes Smoking packs per day: 1.5 Smoking cigarettes per day: 30.0 Alcohol Intake: current Alcohol Intake frequency: 3 or more drinks per day Alcohol type: beer Drug use: Daily Substance use type: marijuana Details: No IV Drug Use Adopted: No Caregiver/Support person: No Foster care: No Household members: none Housing: house Do you need help understanding health information?: Often current occupation: Unemployed Sexually active: No Do you think of yourself as: straight/heterosexual Current gender identity: male Do you feel safe at home: Yes Do you feel safe in your relationship?: Yes Exam Narrative Exam Narrative: i have not actually examined th ept since he is the COvid unti. impression are based the findings are other physcians an dnursing staff. Results Last Vital Signs Temp 38.4 C H 02/22/20 19:44 Pulse 85 02/22/20 20:45 Resp 21 02/22/20 20:50 BP 85/50 L 02/22/20 20:45 Pulse Ox 99 02/22/20 20:50 Labs Result diagrams: 02/23/20 11:40 02/23/20 05:52 Labs: Laboratory Results - last 24 hr 02/22/20 02/22/20 02/22/20 20:20 20:20 20:20 WBC 10.32 RBC 1.89 L Hgb 4.7 L* Hct 16.2 L* MCV 85.7 MCH 24.9 L MCHC 29.0 L RDW 19.9 H Plt Count 198 MPV 9.7 Immature Gran % 0.2 Neutrophils % 90.0 Lymphocytes % 2.2 Monocytes % 7.5 Eosinophils % 0.0 Basophils % 0.1 Absolute Neutrophils 9.29 H Absolute Lymphocytes 0.23 L Absolute Monocytes 0.77 H Absolute Eosinophils 0.00 Absolute Basophils 0.01 PT INR APTT Sodium 138 Potassium 2.5 L* Chloride 100 Carbon Dioxide 31.2 Anion Gap 6.8 BUN 4 L Creatinine 0.49 L Estimated GFR/1.73 m2 >= 60.00 Glucose 127 H Lactate 3.1 H* Calcium 7.1 L Magnesium 1.4 L Total Bilirubin 0.7 AST 80 H ALT 33 Alkaline Phosphatase 47 Creatine Kinase 15 L Troponin I < 0.05 Total Protein 5.1 L Albumin 2.0 L Ethyl Alcohol Crossmatch 02/22/20 02/22/20 02/22/20 20:20 20:32 20:53 WBC RBC Hgb Hct MCV MCH MCHC RDW Plt Count MPV Immature Gran % Neutrophils % Lymphocytes % Monocytes % Eosinophils % Basophils % Absolute Neutrophils Absolute Lymphocytes Absolute Monocytes Absolute Eosinophils Absolute Basophils PT 11.6 H INR 1.2 H APTT 25.6 Sodium Potassium Chloride Carbon Dioxide Anion Gap BUN Creatinine Estimated GFR/1.73 m2 Glucose Lactate Calcium Magnesium Total Bilirubin AST ALT Alkaline Phosphatase Creatine Kinase Troponin I Total Protein Albumin Ethyl Alcohol 97.5 Crossmatch See Detail
[2020-02-22] MEDS: Lactated Ringers 1,000 ML 1000 ML IV (21:20)
[2020-02-22] MEDS: Omnipaque 350 MG/ML 100 ML BTL IJ (21:36)
[2020-02-22] MEDS: MAGNESIUM SULFATE 8.12 MEQ, MULTIVITAMIN 10 ML, THIAMINE 100 MG, FOLIC ACID 1 MG in Nor... 168.867 MG IV (22:04)
[2020-02-22] MEDS: POTASSIUM CHLORIDE 20 MEQ/100 ML BAG 50 MEQ IVPB (22:06)
--- NOTE | 2020-02-22 22:24 | DI.RAD_ITS ---
EXAM: XR LINE PLACEMENT PICC/CVA CLINICAL HISTORY: Central line placement TECHNIQUE: COMPARISON: XR CHEST 2V PA LATERAL from 08/31/2018 FINDINGS: Portable upright chest at 2239 hours. Heart is not enlarged. The lungs are clear and well expanded. Right IJ catheter noted with its tip in the superior vena cava. IMPRESSION:
--- NOTE | 2020-02-22 22:24 | DI.VRAD_ITS ---
PROCEDURE INFORMATION: Exam: CT Angiography Chest With Contrast Exam date and time: 02/22/2020 7:53 PM Age: 60 years old Clinical indication: Fever and other: Hypotension; Patient HX: Fever, hypotension; Additional info: R/O acute dz TECHNIQUE: Imaging protocol: Computed tomographic angiography of the chest with intravenous contrast. 3D rendering: MIP and/or 3D reconstructed images were created by the technologist. COMPARISON: CT CHEST ABD PELVIS WITH CONTRAST 12/12/2017 2:51 AM FINDINGS: Pulmonary arteries: No pulmonary embolism identified. Aorta: No thoracic aortic aneurysm or dissection. Thyroid: Thyroid gland partially excluded from view but grossly unremarkable through its visualized portion. Lungs: Mild-moderate emphysema, most concentrated through the upper lung zones. Linear and reticular pulmonary opacities, probably atelectasis and/or scarring. No region of pulmonary consolidation. 3 mm pleural based pulmonary nodule at the right apex, image 27 of series 6. Mild thickening of the bronchial egan throughout the mid and lower lung zones. Pleural space: No pleural effusion or pneumothorax. Heart: Normal-sized heart. Coronary artery calcification. Mediastinum: Normal-appearing thoracic esophagus. Lymph nodes: Shotty mediastinal and hilar lymph nodes, nonspecific. Bones/joints: Markedly comminuted subacute fracture through the sternal head of the right clavicle with bony callus formation but no significant bony union across the fracture fragments. Subacute fractures through the anterolateral aspect of the right 2nd and 3rd ribs with bony callus formation but incomplete bony union, new since the prior exam from December 12, 2017. Upper ribs partially excluded from view and incompletely evaluated. Otherwise, no additional fracture seen among the bones of the chest Soft tissues: No gross soft tissue fluid collection or mass seen in the chest wall. IMPRESSION: 1. Markedly comminuted subacute fracture through the sternal head of the right clavicle. Subacute fractures through the anterolateral aspect of the right 2nd and 3rd ribs. Upper ribs partially excluded from view and incompletely evaluated. 2. Emphysema. 3. Mild thickening of the bronchial egan throughout the mid and lower lung zones. Chronic, acute, or recurrent bronchitis could produce this appearance. Clinical correlation is recommended. PROCEDURE INFORMATION: Exam: CT Abdomen And Pelvis With Contrast Exam date and time: 02/22/2020 7:53 PM Age: 60 years old Clinical indication: Fever and other: Hypotension; Patient HX: Fever, hypotension; Additional info: R/O acute dz TECHNIQUE: Imaging protocol: Computed tomography of the abdomen and pelvis with intravenous contrast. COMPARISON: CT CHEST ABD PELVIS WITH CONTRAST 12/12/2017 2:51 AM FINDINGS: Liver: Diffuse fatty infiltration of the liver. Gallbladder and bile ducts: Normal appearing gallbladder. No calcified gallstones. No biliary dilatation. Pancreas: Normal appearing pancreas. Spleen: Normal appearing spleen. Adrenals: Mild prominence of the adrenal glands, larger on the left. Mild periadrenal fat stranding. Kidneys and ureters: Normal appearing kidneys. No hydronephrosis. Stomach and bowel: No oral contrast. Stomach partially decompressed. No small bowel dilatation to suggest obstruction. Appendix: Normal retrocecal appendix. Sigmoid diverticulosis but no evidence diverticulitis . Mild mural thickening suggested through the relatively collapsed distal sigmoid colon and rectum. Artifact of incomplete distention? Acute proctocolitis? Clinical correlation recommended. Intraperitoneal space: Trace perisplenic fluid. No free air. Vasculature: Normal caliber abdominal aorta. Lymph nodes: No pathologically enlarged mesenteric, retroperitoneal, or pelvic sidewall lymph nodes. Bladder: Normal appearing urinary bladder. Reproductive: Normal sized prostate gland with coarse calcifications. Normal-sized seminal vesicles. Bones/joints: No acute fracture seen among the bones of the abdomen or pelvis. Tarlov cysts in the sacrum. Soft tissues: No significant ventral or inguinal hernia. IMPRESSION: 1. Diffuse fatty infiltration of the liver. 2. Possible mild mural thickening through the distal sigmoid colon and rectum . Artifact of incomplete distention or acute proctocolitis could have this appearance. Clinical correlation is recommended. If proctocolitis is suspected clinically, infectious or inflammatory causes would be favored. This distribution would be atypical for ischemia. Otherwise, no acute bowel pathology demonstrated. 3. Mild prominence of the adrenal glands, larger on the left, with mild periadrenal fat stranding. This appearance is nonspecific although clinical correlation is recommended to assess the possibility of adrenal hyperplasia or other acute adrenal pathology. 4. Trace perisplenic fluid, nonspecific. Dictated and Authenticated by: Jethro Metzger MD. Ordering:REESE Magallanes MD
--- NOTE | 2020-02-22 22:33 | NUR.NOTE ---
MD Gamez in to place RIJ central line. Pt radha well. Rads in to do portable CXR for placement.
--- NOTE | 2020-02-22 22:49 | DI.VRAD_ITS ---
PROCEDURE INFORMATION: Exam: XR Chest, 1 View Exam date and time: 02/22/2020 10:38 PM Age: 60 years old Clinical indication: Device placement; Patient HX: Central line placement TECHNIQUE: Imaging protocol: XR of the chest Views: 1 view. COMPARISON: CR XR CHEST 2V PA LATERAL 08/31/2018 10:12 AM FINDINGS: Tubes, catheters and devices: An AP portable view of the chest reveals a right internal jugular central venous catheter in situ, terminating in the expected location of the superior vena cava. Lungs: The lung dumont appear clear. Pleural space: No pleural effusion or pneumothorax is seen. Heart/Mediastinum: Heart size is normal. The mediastinal contours appear normal. Bones/joints: A known subacute fracture deformity of the sternal head of the right clavicle is largely obscured. Likewise, known subacute fracture defects involving the anterolateral aspect of the right 2nd and 3rd ribs are not confidently demonstrated. IMPRESSION: Right internal jugular central venous catheter in situ, terminating in the expected location of the superior vena cava. Dictated and Authenticated by: Jethro Metzger MD. Ordering:ALLYSON Bowser MD
[2020-02-22 23:13] LABS: Lactate 1.6 mmol/L (0.6-1.4)
--- NOTE | 2020-02-22 23:22 | HPE_ITS ---
Date of service: 02/22/20 Time of Service: 23:23 Assessment and Plan Assessment and plan (1) Hypovolemic shock: Status: Acute Assessment and plan: Cannot exclude the possibility of septic shock as well given his elevated procalcitonin and blood lactate levels. However the primary issue appears to be acute/and chronic GI bleeding. We will check blood cultures as well as transfuse him and cover him with broad-spectrum antibiotics pending the results of his cultures. (2) Acute GI bleeding: Status: Acute Assessment and plan: Given his melanotic stools is probably an upper GI bleed however the fact that his BUN is not elevated would suggest otherwise. I suspect that his GI bleeding has been chronic issue that is been present for more than a day despite his history of only 1 day of melena. Differential diagnosis includes peptic ulcer disease secondary to alcoholic gastritis or ulcer versus esophageal or gastric variceal bleeding. We will keep him n.p.o. in the event that he needs urgent EGD. Continue with IV Protonix as well as octreotide. Transfuse 3 units of packed red cells with a goal of keeping his hemoglobin above 7 g. Consult with surgery regarding potential need for urgent EGD. (3) Sepsis: Status: Suspected Assessment and plan: Given his elevated procalcitonin level and blood lactate level and history of fevers it raises the suspicion for sepsis. Given his abdominal pain most likely source would be spontaneous bacterial peritonitis. Although his CT scan did not show any significant ascites. There is no evidence for acute cholecystitis or cholangitis either by labs or CT scan. Other sources could be pulmonary although no lung consolidation was seen either on chest x-ray or CT scan although there was some bronchial wall thickening consistent with bronchitis. At this time urinalysis is still pending Qualifiers: Acute renal failure type: unspecified Sepsis acute organ dysfunction status: with acute organ dysfunction Sepsis type: sepsis due to unspecified organism Severe sepsis acute organ dysfunction type: acute renal failure (4) Hypomagnesemia: Status: Acute Assessment and plan: Probably chronically hypomagnesemic secondary to his alcoholism. We will continue with parenteral replacement (5) Acute hypokalemia: Status: Acute Assessment and plan: Continue parenteral replacement of his potassium and his magnesium. Repeat labs in the morning. (6) COPD (chronic obstructive pulmonary disease): Status: Chronic Assessment and plan: As the patient is a person of interest for COVID-19 will refrain from nebulizer treatments but give him Combivent and as needed albuterol Qualifiers: COPD type: emphysema Emphysema type: panlobular Qualified Code(s): J43.1 - Panlobular emphysema (7) Alcohol use disorder: Status: Acute Assessment and plan: Patient is not currently in withdrawal but actually presented intoxicated. Nevertheless he has had a history of alcohol withdrawal although he denies any seizures or hallucinations but admits to getting very anxious and jittery when he goes without drinking. Patient will be monitor with [facility] protocol and put on as needed lorazepam per [facility] guidelines. Patient will receive multivitamin thiamine and folic acid per banana bag. Once he is able to take p.o. we will transition over to oral vitamins and thiamine and folic acid. History of Present Illness History of Present Illness Chief Complaint: Diarrhea with black stools, fever, generalized weakness, Fever Narrative: 60-year-old male with a history of alcohol abuse, hepatitis, COPD, fatty liver, Hopson's esophagitis, previous GI bleeding presented to the emergency department via EMS with acute onset of black tarry stools with diarrhea and generalized weakness of 1 day duration associated with fever. Temperature was 102 per EMS and he was hypotensive with a systolic pressure of 70 per EMS which came up to a systolic pressure 105 after IV fluids. He was having diffuse abdominal tenderness is rectal temperature was 38.4 on arrival to the emergency department. Stools were black tarry and guaiac positive. His initial pressure on arrival to the [facility] room was 109/62 but he then dropped down to 83/49 and remained in the low 80s. His lab work demonstrated significant anemia with a hemoglobin of 4.7 g and a hematocrit of 16%.He had a white count of 10,000 with a neutrophil count of 9200. In spite of the black tarry stools his BUN was only 4 and his creatinine was 0.49. He was found to be hypokalemic at 2.5 and hypomagnesemic at 1.6. His INR was elevated at 1.2 and his total protein albumin were low at 5.1 and 2.0 respectively his total bilirubin is 0.7 and AST was 80 with a normal ALT and normal alkaline phosphatase. Blood alcohol level was 97.5 blood lactate level was elevated at 3.1 as troponin level was normal at less than 0.05. Procalcitonin level was elevated 0.[address] of his abdomen and chest and pelvis was performed. This was performed with contrast. No pulmonary embolism was seen and no thoracic or abdominal aortic aneurysm was seen. Is a comminuted subacute fracture of the sternal head of the right clavicle and subacute fractures to the anterolateral aspect of the right second and third ribs. He has emphysematous changes in his lungs and mild thickening of the bronchial egan throughout the mid and lower lung zones consistent with a bronchitis. CT scans of the abdomen pelvis showed fatty liver changes and possible mild mural thickening of the distal sigmoid colon and rectum. Trace of perisplenic fluid. Mild prominence of his adrenal glands. Gallbladder bile ducts appear to be normal and pancreas appear to be grossly normal. Kidneys appear to be normal. Treatment in the emergency department included IV fluid resuscitation including a liter of saline and a liter of Ringer's lactate along with IV boluses of potassium and magnesium and initiation of a Protonix drip. Blood cultures were obtained and the patient was empirically started on Zosyn for possible sepsis. He was typed and crossmatched and started on transfusion of packed red cells. 3 units were ordered and the first unit has been started in the emergency department. Norepinephrine drip was ordered but has not been started. Because the patient's fevers he is being evaluated weighted as a person of interest for COVID-19. He does have a chronic cough and has chronic dyspnea. Patient will be admitted to the respiratory ICU for further IV fluids including blood transfusions and vasopressor support as needed. He will continue on IV antibiotics pending the results of his blood cultures. We will obtain a urine culture as well and attempt to get a sputum culture. Surgical consult has been requested from Dr. Strickland. Dr. Gamez spoke with Dr. Strickland. Per my recommendation patient was started on a octreotide drip per chance that his GI bleeding is secondary to variceal bleeding. Review of Systems Constitutional Constitutional: Reports chills and Reports fever(s) ENT Ears, Nose, Mouth, and Throat: Reports system reviewed and no additional complaints, except as documented Cardiovascular Cardiovascular: Reports dyspnea on exertion Respiratory Respiratory: Reports cough and Reports dyspnea on exertion Gastrointestinal Gastrointestinal: Reports abdominal pain, Reports melena, Denies hematochezia, Denies coffee ground emesis, Reports diarrhea, Denies vomiting and Denies hematemesis Genitourinary Genitourinary: Reports difficulty urinating and Reports dysuria Musculoskeletal Musculoskeletal: Reports muscle weakness Integumentary/Breasts Skin/Breast: Reports system reviewed and no additional complaints, except as documented Neurologic Neurologic: Reports system reviewed and no additional complaints, except as documented Endocrine Endocrine: Reports system reviewed and no additional complaints, except as documented Hematologic/Lymphatic Hematologic/Lymphatic: Reports easy bruising Allergic/Immunologic Allergic/Immunologic: Reports system reviewed and no additional complaints, except as documented REPLACED BY [facility] Medical History Abnormal abdominal CT scan (Inactive) Alcohol induced fatty liver (Acute) Alcohol use disorder (Acute) Anemia, iron deficiency (Acute) Arthritis (Acute) Atherosclerosis of abdominal aorta (Acute) Hopson's esophagus determined by endoscopy (Acute) Barretts esophagus (Acute) Bone spur of foot (Acute) Chronic iron deficiency anemia (Acute) COPD (chronic obstructive pulmonary disease) (Chronic) DDD (degenerative disc disease) (Acute) Dehydration (Resolved) Dehydration, mild (Acute) Depression (Chronic) Depression with anxiety (Acute) Diverticulosis (Acute) Erosive gastritis (Acute) Erosive gastritis (Acute) Esophageal reflux (Acute) Essential tremor (Acute) Fatty liver (Acute) Gastroenteritis (Resolved) Hematemesis (Acute) Hepatitis A (Acute) Hyperlipemia (Acute) Hypokalemia due to excessive gastrointestinal loss of potassium (Acute) Hypomagnesemia (Acute) Insomnia (Acute) Left knee pain (Acute) Low back pain (Acute) Nonspecific ST-T wave electrocardiographic changes (Acute) Osteoarthritis (arthritis due to wear and tear of joints) (Chronic) Rectal polyp (Acute) Smoker unmotivated to quit (Resolved) Tetrahydrocannabinol (THC) use disorder, moderate, dependence (Acute) Thrombocytopenia (Chronic) Tobacco use disorder (Acute) Transaminitis (Acute) Urinary incontinence (Acute) Urinary urgency (Acute 08/14/17) Surgical History History of foot surgery (Acute) Hx of colonoscopy (Chronic) Hx of esophagogastroduodenoscopy (Chronic) Family History Sister Anxiety Depression Father Cancer Social History Smoking/Tobacco Use Status: Current every day Tobacco Type: cigarettes Smoking packs per day: 1.5 Smoking cigarettes per day: 30.0 Alcohol Intake: current Alcohol Intake frequency: 3 or more drinks per day Al cohol type: beer Drug use: Daily Substance use type: marijuana Details: No IV Drug Use Adopted: No Caregiver/Support person: No Foster care: No Household members: none Housing: house Do you need help understanding health information?: Often current occupation: Unemployed Sexually active: No Do you think of yourself as: straight/heterosexual Current gender identity: male Do you feel safe at home: Yes Do you feel safe in your relationship?: Yes Meds Home Medications and Allergies Home Medications Medication Instructions Recorded Confirmed Type zolpidem [Ambien] 10 mg PO HS tab-cap 08/14/17 02/22/20 History Therapeutic-M 1 tab PO DAILY #30 tab 12/12/17 02/22/20 Rx ferrous gluconate 324 mg (37.5 mg 324 mg PO DAILY 01/23/20 02/22/20 History iron) tablet albuterol sulfate 90 mcg/actuation 2 puff INHALATION Q4H PRN #18 gm 02/14/20 02/22/20 Rx aerosol inhaler tiotropium bromide 18 mcg capsule 1 cap INHALATION DAILY #60 inh 02/14/20 02/22/20 Rx with inhalation device Allergies Allergy/AdvReac Type Severity Reaction Status Date / Time No Known Allergies Allergy Unverified 11/28/19 14:47 Exam Narrative Exam Narrative: Middle-age male lying on emergency room [facility] in no acute respiratory distress wearing surgical face mask and supplemental oxygen. HEENT is remarkable for dry mucous membranes. Neck is supple nontender no JVD normal carotid pulses other than tachycardia. Lungs reveal scattered bilateral expiratory wheezing in upper and lower lung dumont. Heart is regular but tachycardic without murmur rub or gallop. Abdomen is nondistended with active bowel sounds soft but tender over the epigastrium without rebound tenderness. There is some guarding. Rectal exam was deferred as this was performed in the emergency department. Lower extremities without cyanosis however there is 1+ pitting edema over both pretibial surfaces of his legs and his ankles. Neuro exam is grossly intact no facial asymmetry no dysarthric speech no tremors. Results Labs Result diagrams: 02/23/20 05:52 02/23/20 05:52 Labs: Laboratory Results - last 24 hr 02/22/20 02/22/20 02/22/20 20:20 20:20 20:20 WBC 10.32 RBC 1.89 L Hgb 4.7 L* Hct 16.2 L* MCV 85.7 MCH 24.9 L MCHC 29.0 L RDW 19.9 H Plt Count 198 MPV 9.7 Immature Gran % 0.2 Neutrophils % 90.0 Lymphocytes % 2.2 Monocytes % 7.5 Eosinophils % 0.0 Basophils % 0.1 Absolute Neutrophils 9.29 H Absolute Lymphocytes 0.23 L Absolute Monocytes 0.77 H Absolute Eosinophils 0.00 Absolute Basophils 0.01 PT INR APTT Sodium 138 Potassium 2.5 L* Chloride 100 Carbon Dioxide 31.2 Anion Gap 6.8 BUN 4 L Creatinine 0.49 L Estimated GFR/1.73 m2 >= 60.00 Glucose 127 H Lactate 3.1 H* Calcium 7.1 L Magnesium 1.4 L Total Bilirubin 0.7 AST 80 H ALT 33 Alkaline Phosphatase 47 Creatine Kinase 15 L Troponin I < 0.05 Total Protein 5.1 L Albumin 2.0 L Ethyl Alcohol Patient ABO/Rh Antibody Screen Crossmatch 02/22/20 02/22/20 02/22/20 20:20 20:32 20:53 WBC RBC Hgb Hct MCV MCH MCHC RDW Plt Count MPV Immature Gran % Neutrophils % Lymphocytes % Monocytes % Eosinophils % Basophils % Absolute Neutrophils Absolute Lymphocytes Absolute Monocytes Absolute Eosinophils Absolute Basophils PT 11.6 H INR 1.2 H APTT 25.6 Sodium Potassium Chloride Carbon Dioxide Anion Gap BUN Creatinine Estimated GFR/1.73 m2 Glucose Lactate Calcium Magnesium Total Bilirubin AST ALT Alkaline Phosphatase Creatine Kinase Troponin I Total Protein Albumin Ethyl Alcohol 97.5 Patient ABO/Rh Cancelled Antibody Screen Crossmatch See Detail 02/22/20 02/22/20 21:00 23:05 WBC RBC Hgb Hct MCV MCH MCHC RDW Plt Count MPV Immature Gran % Neutrophils % Lymphocytes % Monocytes % Eosinophils % Basophils % Absolute Neutrophils Absolute Lymphocytes Absolute Monocytes Absolute Eosinophils Absolute Basophils PT INR APTT Sodium Potassium Chloride Carbon Dioxide Anion Gap BUN Creatinine Estimated GFR/1.73 m2 Glucose Lactate 1.6 H Calcium Magnesium Total Bilirubin AST ALT Alkaline Phosphatase Creatine Kinase Troponin I Total Protein Albumin Ethyl Alcohol Patient ABO/Rh A Negative Antibody Screen Negative Crossmatch See Detail Last Vital Signs Temp 37.0 C 02/22/20 22:52 Pulse 94 H 02/22/20 22:52 Resp 18 02/22/20 22:52 BP 81/45 L 02/22/20 22:52 Pulse Ox 95 02/22/20 22:52 COVID-19 Screening Traveled to [place] from one of the affected countries or regions?: NO Recent travel in the [facility] within the last 8 weeks?: No Recent out of the country travel within the last 8 weeks?: No Exposure or possible exposure to illness during travel?: No Had IN PERSON contact w/suspected or confirmed C-19 person: No Have you had the following symptoms in the past few days?: Yes Symptoms noted since travel?: Fever
[2020-02-22] MEDS: PIPERACILLIN/TAZO 4.5 GM in Normal Saline 100 ML IVPB (23:25)
[2020-02-22 23:34] LABS: Troponin I < 0.05 ng/Ml (<0.06)
[2020-02-23] VITALS (51 sets, daily range): BP systolic 82–123; BP diastolic 47–104; PULSE 61–93; RESP 11–48; TEMP 35.9–36.9; O2SAT 86–100
[2020-02-23 00:01] LABS: Procalcitonin 0.5 ng/mL
[2020-02-23] MEDS: VANCOMYCIN 1,100 MG in Normal Saline 500 ML 333.3333 MG IVPB (00:26)
--- NOTE | 2020-02-23 00:41 | NUR.NOTE ---
Octreotide started at 0026 at 50mcg/hr per MD pimentel. unable to document in JAN.
--- NOTE | 2020-02-23 00:52 | NUR.NOTE ---
Norepinephrine up at 5mcg/min or 18.8ml/hr . Per MD Gamez titrate to keep MAP >65unable to document in MAR
[2020-02-23] MEDS: MORPHine 2 MG/ML SYR IVP ×3 (04:07→21:58)
[2020-02-23] MEDS: diphenhydrAMINE 50 MG/ML VIAL 25 MG IVP (04:30)
[2020-02-23] MEDS: ACETAMINOPHEN 1,000 MG/100 ML BTL 400 MG IVPB (04:30)
[2020-02-23 04:43] LABS: Troponin I < 0.05 ng/Ml (<0.06)
[2020-02-23] MEDS: Sucralfate 1 GM TAB PO ×3 (04:51→21:58)
[2020-02-23] MEDS: POTASSIUM CHLORIDE 20 MEQ/100 ML BAG 50 MEQ IVPB ×2 (04:57→08:06)
[2020-02-23] MEDS: POTASSIUM CHLORIDE/D5-0.9%NACL 1,000 ML 100 MEQ IV (04:57)
[2020-02-23] MEDS: PIPERACILLIN/TAZO 4.5 GM in Normal Saline 100 ML IVPB ×3 (05:55→17:41)
[2020-02-23] MEDS: LORazepam 2 MG/ML VIAL IVP ×2 (06:08→13:54)
[2020-02-23 06:17] LABS: Lactate 1.2 mmol/L (0.6-1.4)
[2020-02-23 06:18] LABS: Abs Immature Grans 0.03 k/cumm (0.0-0.09); Absolute Eosinophil Count 0.01 k/cumm (0.0-0.7); Absolute Lymphocyte Count 0.62 k/cumm (1.2-3.4); Absolute Neutrophil Count 10.63 k/cumm (1.2-6.7); Basophils % 0.2; Eosinophils % 0.1; HCT 30.4 % (40.0-50.0); HGB 9.7 g/dL (13.5-17.5); Immature Grans % 0.2 %; Lymphocytes % 4.9; Mean Corp. HGB Concentration 31.9 g/dL (32.0-36.0); Mean Corpuscular Hemoglobin 27.5 pg (27.0-33.0); Mean Corpuscular Volume 86.1 fL (80-95); Mean Platelet Volume 10.2 fL (8.0-11.0); Monocytes % 10.3; Neutrophils % 84.3; Platelet Count 187 x1000/uL (130-400); RBC 3.53 m/cumm (4.50-6.00); RBC Distribution Width 17.5 % (11.8-14.1); White Blood Cell Count 12.61 k/cumm (4.4-10.8)
[2020-02-23 06:21] LABS: Absolute Basophil Count 0.03 k/cumm (0.0-0.2)
[2020-02-23 06:31] LABS: INR 1.1 (0.9-1.1); Prothrombin Time 11.4 sec (9.3-11.0)
[2020-02-23 06:39] LABS: ALT 33 U/L (16-63); AST 63 U/L (15-37); Alkaline Phosphatase 44 U/L (46-116); Anion Gap 9.3 mmol/L (3-11); BUN 2 mg/dL (7-18); Bilirubin, Total 1.9 mg/dL (0.2-1.0); CO2 28.7 mmol/L (21.0-32.0); CREATININE 0.55 mg/dL (0.70-1.30); Calcium 6.7 mg/dL (8.5-10.1); Chloride 104 mmol/L (98-107); Glucose 193 mg/dL (74-106); Potassium 3.2 mmol/L (3.5-5.1); Sodium 142 mmol/L (136-145); Total Protein 5.2 g/dL (6.4-8.2); Troponin I < 0.05 ng/Ml (<0.06)
[2020-02-23 06:40] LABS: PHOSPHORUS 3.3 mg/dL (2.6-4.7)
[2020-02-23 08:08] LABS: Magnesium 1.6 mg/dL (1.8-2.4)
[2020-02-23 08:09] LABS: Lipase 29 U/L (73-393)
[2020-02-23] MEDS: Normal Saline Flush 10 ML SYR IVP ×2 (08:11→10:45)
--- NOTE | 2020-02-23 08:29 | INITIAL_ITS ---
- If Service Date Differs Date of service: 02/23/20 Time of Service: 08:29 Care Management Initial Assess REASON FOR HOSPITALIZATION:: Acute GI bleed, fever and hypotension PAST MEDICAL HISTORY/PAST SURGICAL HISTORY:: Atherosclerosis of the abdominal aorta, Hopson's esophagus, bone spur of the foot, chronic iron deficiency anemia, COPD, degenerative disc disease, depression with anxiety, diverticulosis, essential tremor, fatty liver, hyperlipidemia, osteoarthritis, tobacco dependency, dependence on THC and ETOH, acute urinary incontinence. Surgical history colonoscopy, EGD, history of foot surgery. PREVIOUS FUNCTIONAL STATUS/SOCIAL/FAMILY SUPPORTS:: Alton lives with his mother in [facility]. He is independent with ADLs, and transportation. He is currently unemployed and applying for disability, he is establishing care with [facility] to treat his mental health. 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 He has been out of work for the past 3 years and is applying for disability related to his mental health and physical health. CURRENT FUNCTIONAL STATUS:: Alton is currently receiving care in the RICU, pending COIVD results. He was hypotensive at admission and is currently ICU level of care. CM will meet with Alton via video once he is medically stable. His Mom has been in contact with the RICU and has received updates. ADVANCE DIRECTIVES:: Patient declined last admission CM will address when he is able to engage and stable. Has patient been provided with information about the portal?: No Did the patient sign up for the portal?: No CODE STATUS:: Full Code INSURANCE COVERAGE / FINANCIAL ISSUES:: Medicaid CURRENT HOME/COMMUNITY SERVICES/EQUIPMENT:: VOC [facility]hab [facility], [facility]YSICIAN:: POTENTIAL DISCHARGE NEEDS:: Follow-up appointment with primary care or surgical services as directed. PATIENT/FAMILY EDUCATION NEEDS:: Discharge education, limitations, follow-up plan of care, asked me 3 and self-management. ANTICIPATED BARRIERS TO DISCHARGE:: Pending COVID results TRANSPORTATION:: Via private car with his mother at time of discharge. PLAN:: Alton will be discharged when medically ready. Anticipate no additional at time of discharge. Ongoing follow up with with primary care and surgical services as directed. CM to assess for anticipated discharge needs.
--- NOTE | 2020-02-23 10:52 | PHA.REVIEW ---
Pharmacy Admission Review - Admission Clinical Review (Last Reviewed 02/23/20 @ 00:23 by Niels Frost) Acute GI bleeding (Acute) Hypomagnesemia (Acute) Hypovolemic shock (Acute) Acute hypokalemia (Acute) Alcohol induced fatty liver (Acute) Hopson's esophagus determined by endoscopy (Acute) Erosive gastritis (Acute) Alcohol use disorder (Acute) Esophageal reflux (Acute) Chronic iron deficiency anemia (Acute) No Known Allergies Allergy (Unverified 11/28/19 14:47) Height 5 ft 8 in Weight 54.431 kg - Comments Comments/Follow Ups: 3 units RBCs last night, Goal to keep Hgb >7. Sepsis is suspected -- source currently unknown, maybe SBP but no ascites, cultures pending: current empiric tx with PIP/CHELLY + VANCO. notes COPD but inhalers not ordered, will notify Dr. Michael ClayDiff cancelled by lab due to formed stool. EtOH withdrawal -- banana bag daily until able to tolerate PO. Protonix drip for GI bleed, octreotide dc'd, norepi dc'd - Renal Dosing Renal Dosing: BUN 2 mg/dL (7-18) L 02/23/20 05:52 Creatinine 0.55 mg/dL (0.70-1.30) L 02/23/20 05:52 Medications needing adjustments: Reviewed (watch for variable Scr levels -- could be artifically low) - Anticoagulation Anticoagulation: Hgb 9.7 g/dL (13.5-17.5) L D 02/23/20 05:52 Hct 30.4 % (40.0-50.0) L D 02/23/20 05:52 Plt Count 187 x1000/uL (130-400) 02/23/20 05:52 INR 1.1 (0.9-1.1) 02/23/20 05:52 Creatinine 0.55 mg/dL (0.70-1.30) L 02/23/20 05:52 DVT Prohphylaxis: N/A - Opiate Usage Evaluate Pain Scale/Pains Meds: Reviewed Scheduled Bowel Reg ordered if on Opiates?: No (acut gi bleed) - Relevant Labs Sodium 142 mmol/L (136-145) 02/23/20 05:52 Potassium 3.2 mmol/L (3.5-5.1) L 02/23/20 05:52 Chloride 104 mmol/L (98-107) 02/23/20 05:52 Phosphorus 3.3 mg/dL (2.6-4.7) 02/23/20 05:52 Magnesium 1.6 mg/dL (1.8-2.4) L 02/23/20 05:52 - DM Control DM Control: Glucose 193 mg/dL (74-106) H 02/23/20 05:52 Insulin Dosing: N/A - Heart Failure/KY Heart Failure/[place]: Troponin I < 0.05 ng/Ml (<0.06) 02/23/20 05:52 - BP Control BP Control: Blood Pressure [Left Arm] 108/72 Blood Pressure [Left Arm] 82/51 Blood Pressure 101/69 Blood Pressure 89/70 Blood Pressure 93/67 Blood Pressure 93/67 Blood Pressure 87/63 Blood Pressure 88/62 Blood Pressure 96/67 Blood Pressure 96/76 Blood Pressure 104/78 Blood Pressure 120/104 Blood Pressure 120/104 Blood Pressure 105/72 Blood Pressure 108/72 Blood Pressure 113/83 Blood Pressure 106/71 Blood Pressure 103/70 Blood Pressure 103/74 Blood Pressure 116/87 Blood Pressure 99/67 Blood Pressure 109/62 Blood Pressure 92/67 Blood Pressure 113/71 Blood Pressure 92/67 Blood Pressure 97/68 Blood Pressure 101/63 Blood Pressure 84/52 Blood Pressure 88/47 Blood Pressure 80/54 Blood Pressure 82/49 If elevated: Reviewed (Norepi drip stopped) - Qtc Review If Elevated: Reviewed (QTc 490) - Home Meds Relevent Home Meds Not ordered & why?: albuterol, spiriva, zolpidem,
[2020-02-23 11:53] LABS: HCT 28.5 % (40.0-50.0)
[2020-02-23 14:23] LABS: Bilirubin Negative (Negative); Blood Trace-lysed (Negative); Clarity Clear (Clear); Glucose Negative (Negative); Ketones Negative (Negative); Leukocyte Esterase Negative (Negative); Nitrite Negative (Negative); Urobilinogen 0.2 EU/dL (Up TO 0.2); pH 6.5 (5-8)
[2020-02-23 14:31] LABS: Bacteria Rare HPF (Negative); C & S Indicated? No; Casts Negative LPF (Negative); Crystals Negative HPF (Negative); Epithelial Cells Rare HPF (Negative); Mucus Negative (Negative)
[2020-02-23 14:33] LABS: *AMPHETAMINES SCREEN URINE Negative (Negative); *BARBITURATES SCREEN URINE Negative (Negative); *BENZODIAZEPINES SCREEN URINE Negative (Negative); Cannabinoids THC POSITIVE (Negative); Cocaine Screen,Urine Negative (Negative); METHADONE URINE SCREEN Negative (Negative); OPIATES URINE SCREEN POSITIVE (Negative)
[2020-02-23 14:34] LABS: Tricyclic Antidepressants Negative (Negative)
--- NOTE | 2020-02-23 14:53 | PGE_ITS ---
Date of Service Date of service: 02/23/20 Time of Service: 14:53 Assessment and Plan Assessment and plan (1) Acute GI bleeding: Status: Acute Assessment and plan: Patient presents with melanotic stools, abdominal pain, hemoglobin 4.7. He has had GI bleeding in the past and a work-up including upper and lower endoscopy. It has been a reccomended that he have a capsule endoscopy for which he has not followed up as yet. He may have an AVM in the small bowel. His CAT scan on this admission does show some thickening in the small bowel segments. He has thus far responded well to the famotidine infusion, octreotide infusion, 3 units of packed red cell transfusion. Will DC the octreotide as he appears to have stabilized. Continue famotidine. Continue to monitor serial hemoglobin hematocrit. Dr. Strickland is following along from general surgery. She will consider him for upper endoscopy tomorrow. Has started him on clear liquids n.p.o. after midnight. (2) Hypomagnesemia: Status: Acute Assessment and plan: Magnesium has come up to 1.6. We will recheck m agnesium again in the a.m. (3) Acute hypokalemia: Status: Acute Assessment and plan: Potassium has come up to 3.2. Continue potassium replacement and check in the a.m. (4) Hypovolemic shock: Status: Acute Assessment and plan: He has responded to volume replacement therapy as well as a brief period of norepinephrine therapy via central line. (5) Alcohol induced fatty liver: Status: Acute (6) Hopson's esophagus determined by endoscopy: Status: Acute Assessment and plan: He has had repeated upper endoscopy which has thus far been stable. Continue PPI therapy. (7) Alcohol use disorder: Status: Acute Assessment and plan: He has regular daily alcohol intake. He has been counseled on alcohol cessation multiple times but has not been able to comply. (8) Right clavicle fracture: Status: Acute Assessment and plan: Occult right clavicle fracture found on CT of the chest. There is apparent nonunion there. Further follow-up with orthopedics as an outpatient. (9) Sepsis: Status: Suspected Assessment and plan: Sepsis syndrome on the basis of hypotension and fever. He only had one recorded fever here. Empiric therapy with Zosyn and vancomycin. Source has not yet been identified. Await culture results. Continue to monitor in intensive care unit. Qualifiers: Sepsis type: sepsis due to unspecified organism Sepsis acute organ dysfunction status: with acute organ dysfunction Severe sepsis acute organ dysfunction type: acute renal failure Acute renal failure type: unspecified (10) Suspected COVID-19 virus infection: Status: Acute Assessment and plan: Given his fever and concern for an occult infection COVID-19 testing is pending. Subjective Subjective Interval history since last seen: Patient admitted overnight because of GI bleeding with a hemoglobin of 4.7. He received 3 units of packed red cells with a resultant hemoglobin of 9.7. He had a large melanotic stool overnight. He did require pressor support during part of the last 12 hours but now is off of the norepinephrine. He has since woken up considerably and is states his abdominal pain is better. His only complaint is some lower back pain and right clavicle pain. Exam Narrative Exam Narrative: On exam he was easily aroused. He appeared to interact normally. He did not appear in any distress. He followed commands readily. His lung exam was clear on the right and left. His heart sounds were strong and regular. His abdomen was overall soft and nontender. His previous pain was more in the suprapubic region which was nontender today. The lower extremities showed no significant edema with teds in place. Objective Objective Clinical Data: Abnormal lab results 02/22/20 02/22/20 02/22/20 Range/Units 20:20 20:20 20:20 WBC (4.4-10.8) k/cumm RBC 1.89 L (4.50-6.00) m/cumm Hgb 4.7 L* (13.5-17.5) g/dL Hct 16.2 L* (40.0-50.0) % MCH 24.9 L (27.0-33.0) pg MCHC 29.0 L (32.0-36.0) g/dL RDW 19.9 H (11.8-14.1) % Absolute Neutrophils 9.29 H (1.2-6.7) k/cumm Absolute Lymphocytes 0.23 L (1.2-3.4) k/cumm Absolute Monocytes 0.77 H (0.11-0.7) k/cumm PT (9.3-11.0) sec INR (0.9-1.1) Potassium 2.5 L* (3.5-5.1) mmol/L BUN 4 L (7-18) mg/dL Creatinine 0.49 L (0.70-1.30) mg/dL Glucose 127 H (74-106) mg/dL Lactate 3.1 H* (0.6-1.4) mmol/L Calcium 7.1 L (8.5-10.1) mg/dL Magnesium 1.4 L (1.8-2.4) mg/dL Total Bilirubin (0.2-1.0) mg/dL AST 80 H (15-37) U/L Alkaline Phosphatase (46-116) U/L Creatine Kinase 15 L (39-308) U/L Total Protein 5.1 L (6.4-8.2) g/dL Albumin 2.0 L (3.4-5.0) g/dL Urine Blood (Negative) Urine RBC (0-2) HPF Urine Opiates Screen (Negative) Ur THC Screen (Negative) Crossmatch 02/22/20 02/22/20 02/22/20 Range/Units 20:32 20:53 21:00 WBC (4.4-10.8) k/cumm RBC (4.50-6.00) m/cumm Hgb (13.5-17.5) g/dL Hct (40.0-50.0) % MCH (27.0-33.0) pg MCHC (32.0-36.0) g/dL RDW (11.8-14.1) % Absolute Neutrophils (1.2-6.7) k/cumm Absolute Lymphocytes (1.2-3.4) k/cumm Absolute Monocytes (0.11-0.7) k/cumm PT 11.6 H (9.3-11.0) sec INR 1.2 H (0.9-1.1) Potassium (3.5-5.1) mmol/L BUN (7-18) mg/dL Creatinine (0.70-1.30) mg/dL Glucose (74-106) mg/dL Lactate (0.6-1.4) mmol/L Calcium (8.5-10.1) mg/dL Magnesium (1.8-2.4) mg/dL Total Bilirubin (0.2-1.0) mg/dL AST (15-37) U/L Alkaline Phosphatase (46-116) U/L Creatine Kinase (39-308) U/L Total Protein (6.4-8.2) g/dL Albumin (3.4-5.0) g/dL Urine Blood (Negative) Urine RBC (0-2) HPF Urine Opiates Screen (Negative) Ur THC Screen (Negative) Crossmatch See Detail See Detail 02/22/20 02/23/20 02/23/20 Range/Units 23:05 05:52 05:52 WBC 12.61 H (4.4-10.8) k/cumm RBC 3.53 L (4.50-6.00) m/cumm Hgb 9.7 L D (13.5-17.5) g/dL Hct 30.4 L D (40.0-50.0) % MCH (27.0-33.0) pg MCHC 31.9 L (32.0-36.0) g/dL RDW 17.5 H (11.8-14.1) % Absolute Neutrophils 10.63 H (1.2-6.7) k/cumm Absolute Lymphocytes 0.62 L (1.2-3.4) k/cumm Absolute Monocytes 1.30 H (0.11-0.7) k/cumm PT (9.3-11.0) sec INR (0.9-1.1) Potassium 3.2 L (3.5-5.1) mmol/L BUN 2 L (7-18) mg/dL Creatinine 0.55 L (0.70-1.30) mg/dL Glucose 193 H (74-106) mg/dL Lactate 1.6 H (0.6-1.4) mmol/L Calcium 6.7 L (8.5-10.1) mg/dL Magnesium (1.8-2.4) mg/dL Total Bilirubin 1.9 H (0.2-1.0) mg/dL AST 63 H (15-37) U/L Alkaline Phosphatase 44 L (46-116) U/L Creatine Kinase (39-308) U/L Total Protein 5.2 L (6.4-8.2) g/dL Albumin 2.0 L (3.4-5.0) g/dL Urine Blood (Negative) Urine RBC (0-2) HPF Urine Opiates Screen (Negative) Ur THC Screen (Negative) Crossmatch 02/23/20 02/23/20 02/23/20 Range/Units 05:52 05:52 11:40 WBC (4.4-10.8) k/cumm RBC (4.50-6.00) m/cumm Hgb 9.0 L (13.5-17.5) g/dL Hct 28.5 L (40.0-50.0) % MCH (27.0-33.0) pg MCHC (32.0-36.0) g/dL RDW (11.8-14.1) % Absolute Neutrophils (1.2-6.7) k/cumm Absolute Lymphocytes (1.2-3.4) k/cumm Absolute Monocytes (0.11-0.7) k/cumm PT 11.4 H (9.3-11.0) sec INR (0.9-1.1) Potassium (3.5-5.1) mmol/L BUN (7-18) mg/dL Creatinine (0.70-1.30) mg/dL Glucose (74-106) mg/dL Lactate (0.6-1.4) mmol/L Calcium (8.5-10.1) mg/dL Magnesium 1.6 L (1.8-2.4) mg/dL Total Bilirubin (0.2-1.0) mg/dL AST (15-37) U/L Alkaline Phosphatase (46-116) U/L Creatine Kinase (39-308) U/L Total Protein (6.4-8.2) g/dL Albumin (3.4-5.0) g/dL Urine Blood (Negative) Urine RBC (0-2) HPF Urine Opiates Screen (Negative) Ur THC Screen (Negative) Crossmatch 02/23/20 02/23/20 Range/Units 14:00 14:00 WBC (4.4-10.8) k/cumm RBC (4.50-6.00) m/cumm Hgb (13.5-17.5) g/dL Hct (40.0-50.0) % MCH (27.0-33.0) pg MCHC (32.0-36.0) g/dL RDW (11.8-14.1) % Absolute Neutrophils (1.2-6.7) k/cumm Absolute Lymphocytes (1.2-3.4) k/cumm Absolute Monocytes (0.11-0.7) k/cumm PT (9.3-11.0) sec INR (0.9-1.1) Potassium (3.5-5.1) mmol/L BUN (7-18) mg/dL Creatinine (0.70-1.30) mg/dL Glucose (74-106) mg/dL Lactate (0.6-1.4) mmol/L Calcium (8.5-10.1) mg/dL Magnesium (1.8-2.4) mg/dL Total Bilirubin (0.2-1.0) mg/dL AST (15-37) U/L Alkaline Phosphatase (46-116) U/L Creatine Kinase (39-308) U/L Total Protein (6.4-8.2) g/dL Albumin (3.4-5.0) g/dL Urine Blood Trace-lysed H (Negative) Urine RBC 5-10 H (0-2) HPF Urine Opiates Screen Positive A (Negative) Ur THC Screen Positive A (Negative) Crossmatch Vital Signs Temperature 36.4 C L 02/23/20 11:30 Temperature Source Temporal Artery Scan 02/23/20 11:30 Pulse 77 02/23/20 14:30 Pulse 89 02/22/20 20:50 Respiratory Rate 21 02/23/20 14:30 Respiratory Effort Non-Labored 02/23/20 11:46 Respiratory Depth Normal 02/23/20 11:46 Respiratory Pattern Normal 02/23/20 11:46 Blood Pressure 87/66 L 02/23/20 14:30 Blood Pressure Mean 84 02/23/20 05:00 Blood Pressure Position Supine 02/23/20 05:00 Pulse Oximetry 95 02/23/20 14:47 Oxygen Delivery Method Nasal Cannula 02/23/20 14:47 Oxygen Flow Rate 1.5 02/23/20 14:47 Pain Level 6 02/23/20 11:46 Comment 02/23/20 14:30 Intake & Output 02/22/20 02/23/20 02/23/20 23:59 11:59 23:59 Intake Total 2099 3621.180 / 3671.180 50 / 3671.180 Output Total 875 / 1575 700 / 1575 Balance 2099 2746.180 / 2096.180 -650 / 2096.180 Weight 54.431 kg 54.431 kg Intake: IV 2099 2751.180 / 2751.180 Oral 120 / 170 50 / 170 Blood Product 750 / 750 Rbc Leuko Reduced Unit 200 / 200 [id number] Rbc Leuko Reduced Unit 250 / 250 [id number] Rbc Leuko Reduced Unit 300 / 300 [id number] Output: Urine 875 / 1575 700 / 1575 Other: Urine Color Yellow Yellow Urine Appearance Clear Clear Comment Palacios catheter in place and draining Stool Occult Blood Positive Stool Size Small Stool Characteristics Soft Emesis Description None Voiding Methods Indwelling Catheter Laboratory Results WBC 12.61 k/cumm (4.4-10.8) H 02/23/20 05:52 RBC 3.53 m/cumm (4.50-6.00) L 02/23/20 05:52 Hgb 9.0 g/dL (13.5-17.5) L 02/23/20 11:40 Hct 28.5 % (40.0-50.0) L 02/23/20 11:40 MCV 86.1 fL (80-95) 02/23/20 05:52 MCH 27.5 pg (27.0-33.0) 02/23/20 05:52 MCHC 31.9 g/dL (32.0-36.0) L 02/23/20 05:52 RDW 17.5 % (11.8-14.1) H 02/23/20 05:52 Plt Count 187 x1000/uL (130-400) 02/23/20 05:52 MPV 10.2 fL (8.0-11.0) 02/23/20 05:52 Immature Gran % 0.2 % 02/23/20 05:52 Neutrophils % 84.3 02/23/20 05:52 Lymphocytes % 4.9 02/23/20 05:52 Monocytes % 10.3 02/23/20 05:52 Eosinophils % 0.1 02/23/20 05:52 Basophils % 0.2 02/23/20 05:52 Absolute Neutrophils 10.63 k/cumm (1.2-6.7) H 02/23/20 05:52 Absolute Lymphocytes 0.62 k/cumm (1.2-3.4) L 02/23/20 05:52 Absolute Monocytes 1.30 k/cumm (0.11-0.7) H 02/23/20 05:52 Absolute Eosinophils 0.01 k/cumm (0.0-0.7) 02/23/20 05:52 Absolute Basophils 0.03 k/cumm (0.0-0.2) 02/23/20 05:52 PT 11.4 sec (9.3-11.0) H 02/23/20 05:52 INR 1.1 (0.9-1.1) 02/23/20 05:52 APTT 25.6 sec (21.0-31.4) 02/22/20 20:32 Sodium 142 mmol/L (136-145) 02/23/20 05:52 Potassium 3.2 mmol/L (3.5-5.1) L 02/23/20 05:52 Chloride 104 mmol/L (98-107) 02/23/20 05:52 Carbon Dioxide 28.7 mmol/L (21.0-32.0) 02/23/20 05:52 Anion Gap 9.3 mmol/L (3-11) 02/23/20 05:52 BUN 2 mg/dL (7-18) L 02/23/20 05:52 Creatinine 0.55 mg/dL (0.70-1.30) L 02/23/20 05:52 Estimated GFR/1.73 m2 >= 60.00 (mL/min/1.73m2) 02/23/20 05:52 Glucose 193 mg/dL (74-106) H 02/23/20 05:52 Lactate 1.2 mmol/L (0.6-1.4) 02/23/20 05:52 Calcium 6.7 mg/dL (8.5-10.1) L 02/23/20 05:52 Phosphorus 3.3 mg/dL (2.6-4.7) 02/23/20 05:52 Magnesium 1.6 mg/dL (1.8-2.4) L 02/23/20 05:52 Total Bilirubin 1.9 mg/dL (0.2-1.0) H 02/23/20 05:52 AST 63 U/L (15-37) H 02/23/20 05:52 ALT 33 U/L (16-63) 02/23/20 05:52 Alkaline Phosphatase 44 U/L (46-116) L 02/23/20 05:52 Creatine Kinase 15 U/L (39-308) L 02/22/20 20:20 Troponin I < 0.05 ng/Ml (<0.06) 02/23/20 05:52 Total Protein 5.2 g/dL (6.4-8.2) L 02/23/20 05:52 Albumin 2.0 g/dL (3.4-5.0) L 02/23/20 05:52 Lipase 29 U/L (73-393) 02/23/20 05:52 Procalcitonin 0.5 ng/mL 02/22/20 20:20 Urine Color Yellow (Yellow) 02/23/20 14:00 Urine Clarity Clear (Clear) 02/23/20 14:00 Urine pH 6.5 (5-8) 02/23/20 14:00 Ur Specific Lindsay 1.020 (1.005-1.025) 02/23/20 14:00 Urine Protein Negative mg/dL (Negative) 02/23/20 14:00 Urine Ketones Negative mg/dL (Negative) 02/23/20 14:00 Urine Blood Trace-lysed (Negative) H 02/23/20 14:00 Urine Nitrite Negative (Negative) 02/23/20 14:00 Urine Bilirubin Negative (Negative) 02/23/20 14:00 Urine Urobilinogen 0.2 EU/dL (Up TO 0.2) 02/23/20 14:00 Ur Leukocyte Esterase Negative (Negative) 02/23/20 14:00 Urine RBC 5-10 HPF (0-2) H 02/23/20 14:00 Urine WBC 3-5 HPF (0-5) 02/23/20 14:00 Ur Epithelial Cells Rare HPF (Negative) 02/23/20 14:00 Urine Crystals Negative HPF (Negative) 02/23/20 14:00 Urine Bacteria Rare HPF (Negative) 02/23/20 14:00 Urine Casts Negative LPF (Negative) 02/23/20 14:00 Urine Mucus Negative (Negative) 02/23/20 14:00 Ur Culture Indicated? No 02/23/20 14:00 Urine Glucose Negative mg/dL (Negative) 02/23/20 14:00 Urine Opiates Screen Positive (Negative) A 02/23/20 14:00 Urine Methadone Screen Negative (Negative) 02/23/20 14:00 Ur Barbiturates Screen Negative (Negative) 02/23/20 14:00 Ur Tricyclics Screen Negative (Negative) 02/23/20 14:00 Ur Amphetamines Screen Negative (Negative) 02/23/20 14:00 U Benzodiazepines Scrn Negative (Negative) 02/23/20 14:00 Urine Cocaine Screen Negative (Negative) 02/23/20 14:00 Ur THC Screen Positive (Negative) A 02/23/20 14:00 Ethyl Alcohol 97.5 mg/dL (<3) 02/22/20 20:20 Patient ABO/Rh A Negative 02/22/20 21:00 Antibody Screen Negative 02/22/20 21:00 Crossmatch See Detail 02/22/20 21:00
[2020-02-23] MEDS: PANTOPRAZOLE 80 MG in Normal Saline 100 ML 10 MG IV (15:59)
[2020-02-23] MEDS: Tiotropium Bromide-Respimat 10 PUFF INH IH (17:38)
[2020-02-23] MEDS: POTASSIUM CHLORIDE/D5-0.9%NACL 1,000 ML 85 MEQ IV (17:55)
[2020-02-24] VITALS (112 sets, daily range): BP systolic 82–119; BP diastolic 52–80; PULSE 80–140; RESP 12–39; TEMP 36.4–38; O2SAT 88–100
[2020-02-24] MEDS: PIPERACILLIN/TAZO 4.5 GM in Normal Saline 100 ML IVPB ×5 (01:18→23:58)
[2020-02-24] MEDS: LORazepam 2 MG/ML VIAL IVP ×3 (03:45→20:05)
[2020-02-24 07:24] LABS: Abs Immature Grans 0.02 k/cumm (0.0-0.09); Absolute Basophil Count 0.02 k/cumm (0.0-0.2); Absolute Eosinophil Count 0.14 k/cumm (0.0-0.7); Absolute Lymphocyte Count 1.03 k/cumm (1.2-3.4); Absolute Monocyte Count 0.85 k/cumm (0.11-0.7); Absolute Neutrophil Count 7.12 k/cumm (1.2-6.7); Basophils % 0.2; Eosinophils % 1.5; HCT 32.4 % (40.0-50.0); HGB 10.2 g/dL (13.5-17.5); Immature Grans % 0.2 %; Lymphocytes % 11.2; Mean Corp. HGB Concentration 31.5 g/dL (32.0-36.0); Mean Corpuscular Hemoglobin 26.6 pg (27.0-33.0); Mean Corpuscular Volume 84.6 fL (80-95); Monocytes % 9.3; Neutrophils % 77.6; Platelet Count 182 x1000/uL (130-400); RBC 3.83 m/cumm (4.50-6.00); RBC Distribution Width 17.6 % (11.8-14.1); White Blood Cell Count 9.18 k/cumm (4.4-10.8)
[2020-02-24 07:28] LABS: Vancomycin, Trough 17.3 ug/mL (10.0-20.0)
[2020-02-24 07:30] LABS: ALT 26 U/L (16-63); AST 35 U/L (15-37); Albumin 1.9 g/dL (3.4-5.0); Alkaline Phosphatase 44 U/L (46-116); Anion Gap 5.9 mmol/L (3-11); BUN 1 mg/dL (7-18); Bilirubin, Total 1.3 mg/dL (0.2-1.0); CO2 33.1 mmol/L (21.0-32.0); CREATININE 0.47 mg/dL (0.70-1.30); Calcium 7.2 mg/dL (8.5-10.1); Chloride 101 mmol/L (98-107); Glucose 118 mg/dL (74-106); Sodium 140 mmol/L (136-145); Total Protein 5.1 g/dL (6.4-8.2)
[2020-02-24 07:32] LABS: Potassium 2.5 mmol/L (3.5-5.1)
[2020-02-24 08:14] LABS: Lactate 1.1 mmol/L (0.6-1.4)
[2020-02-24] MEDS: Normal Saline Flush 10 ML SYR IVP ×3 (08:19→19:28)
[2020-02-24] MEDS: POTASSIUM CHLORIDE 10 MEQ/100 ML BAG 100 MEQ IVPB ×2 (09:10→09:46)
[2020-02-24] MEDS: POTASSIUM CHLORIDE/D5-0.9%NACL 1,000 ML 85 MEQ IV (09:11)
[2020-02-24] MEDS: MULTIVITAMIN 10 ML, THIAMINE 100 MG, FOLIC ACID 1 MG in DEXTROSE 5%-0.45% SALINE 1,000 ML 42 ML IV (09:13)
--- NOTE | 2020-02-24 10:16 | W.PM.PROGNOT ---
Date of Service Date of service: 02/24/20 Time of Service: 10:16 Assessment and Plan Assessment and plan (1) Acute GI bleeding: Status: Acute Assessment and plan: Informed consent is obtained for the procedural (explained in simple layman's terms that the pt and/or family could understand) explaining risks vs benefits and alternatives to the procedure and consequences if we do not do the procedure and need/rational for the procedure. Risks include but are not limited to: bleeding, infection, perforation of esophagus, stomach, colon, small intestines, bronchus or trachea, or PTX. This would necessitate emergency surgery to repair the damage w/ possible ostomy; and other associated complications w/ the required surgery. Also complications of anesthesia including aspiration, MN/CVA/. (2) Right clavicle fracture: Status: Acute (3) Hopson's esophagus determined by endoscopy: Status: Acute (4) Erosive gastritis: Status: Acute (5) Hypokalemia due to excessive gastrointestinal loss of potassium: Status: Acute Assessment and plan: replacing (6) Tobacco use disorder: Status: Acute (7) Anemia, iron deficiency: Status: Acute (8) Tetrahydrocannabinol (THC) use disorder, moderate, dependence: Status: Acute (9) Diverticulosis: Status: Acute (10) Chronic iron deficiency anemia: Status: Acute (11) Fatty liver: Status: Acute (12) Barretts esophagus: Status: Acute (13) Alcohol use disorder: Status: Acute (14) LLQ abdominal pain: Status: Acute Assessment and plan: CT:CT chest PE abd & pelvis w EXAM: CT CHEST PE ABD PELVIS W CLINICAL HISTORY: fever, hypotension, r/o acute dz TECHNIQUE: Axial CT angiography was performed with multi-slice acquisition and multi-planar and/or 3D reconstructions. COMPARISON: CT ABDOMEN CTA from 11/28/2019 FINDINGS: CT examination of the chest, abdomen and pelvis was performed with a bolus infusion of 59 cc of Omnipaque 350. Note is made of comminuted fracture of the right clavicle medially which appears to show some callus formation and there are healing fractures of right 2nd and 3rd ribs noted as well anteriorly. No evidence of pulmonary embolic disease. No thoracic aortic aneurysm or dissection. No significant mediastinal or hilar adenopathy. There is moderate centrilobular emphysema predominantly in the upper lobes. Thickening of the interlobular septae noted particularly posteriorly and in the lung bases. Peribronchial thickening noted, diffuse, predominately involving lower lobes. No focal consolidation, no pneumothorax or pleural effusion. There is marked hepatic steatosis. No focal hepatic lesion identified. Spleen is unremarkable. Adrenals and kidneys are unremarkable, no urinary tract calcification or obstruction. Pancreas appears normal. Gallbladder and bile ducts are CT normal. Abdominal aorta is of normal diameter and no major vascular abnormality is seen. No significant abdominal wall hernia seen. No abdominal or pelvic adenopathy. Normal appearance of appendix. No evidence of bowel obstruction. Question mild thickening recto sigmoid wall, inflammatory process not excluded, please correlate clinically. Prostate mildly enlarged and contains calcifications. IMPRESSION: No significant acute findings on scanning of the chest. Please see above discussion for discussion of chronic changes. Question wall thickening rectosigmoid, proctocolitis not excluded, please correlate clinically. Hepatic steatosis noted [id number]: Total DLP = 0.00 mGy-cm Ordered By: Sona Cardoso DO CC: Subjective Subjective Interval history since last seen: pt is well know to me. He has a long standing hx of eTOH abuse. He also has a hx of anemia. [place] [facility] [place] show erosive gast[place]. He refused EGD in November when he was admitted w/ GI bleed/black tarry stools. His last CE in 10/24 at [facility] was normal . But CT's do show few small scattered diverticula. But there was no signs of active infection. He still is passing lg volume black tarry stools and is having pain in LLQ. he denies upper pain. he denies n/v. he says he is hungry. He has lost wt since I saw saw him in November. He appears quite cachetic. He does not have any RUQ pain. ABdom is soft and flat and no ascites. He has not had a drink in 4days. he is starting to feel shaky. His CIWA score was 17 per nursing. Exam [facility] Ears: hearing grossly normal bilaterally Face and sinus: normal facial exam Mouth: oral mucosae normal Teeth and gingiva: poor dentition Eyes Sclera: sclerae normal Other: no icterus temporal muscle wasting. Chest Chest: normal inspection of the chest and normal palpation of entire chest wall Resp Effort & Inspection: normal respiratory effort and able to speak in complete sentences Auscultation: clear to auscultation bilaterally GI Inspection: normal to inspection Palpation: soft, no hernias, tender in the LLQ (mild) and No ascites Percussion: no fluid wave Skin Other: no breakdown per RN Extrem General: no pedal edema Other: muscle wasting tremulous Psych Appearance: disheveled Other: starting to hallucinate per nursing was clear adn able to answer questions when I talked to him Objective Objective Clinical Data: Abnormal lab results 02/22/20 02/23/20 02/23/20 Range/Units 21:00 11:40 14:00 RBC (4.50-6.00) m/cumm Hgb 9.0 L (13.5-17.5) g/dL Hct 28.5 L (40.0-50.0) % MCH (27.0-33.0) pg MCHC (32.0-36.0) g/dL RDW (11.8-14.1) % Absolute Neutrophils (1.2-6.7) k/cumm Absolute Lymphocytes (1.2-3.4) k/cumm Absolute Monocytes (0.11-0.7) k/cumm Potassium (3.5-5.1) mmol/L Carbon Dioxide (21.0-32.0) mmol/L BUN (7-18) mg/dL Creatinine (0.70-1.30) mg/dL Glucose (74-106) mg/dL Calcium (8.5-10.1) mg/dL Total Bilirubin (0.2-1.0) mg/dL Alkaline Phosphatase (46-116) U/L Total Protein (6.4-8.2) g/dL Albumin (3.4-5.0) g/dL Urine Blood (Negative) Urine RBC (0-2) HPF Urine Opiates Screen Positive A (Negative) Ur THC Screen Positive A (Negative) Crossmatch See Detail 02/23/20 02/24/20 02/24/20 Range/Units 14:00 06:00 06:00 RBC 3.83 L (4.50-6.00) m/cumm Hgb 10.2 L (13.5-17.5) g/dL Hct 32.4 L (40.0-50.0) % MCH 26.6 L (27.0-33.0) pg MCHC 31.5 L (32.0-36.0) g/dL RDW 17.6 H (11.8-14.1) % Absolute Neutrophils 7.12 H (1.2-6.7) k/cumm Absolute Lymphocytes 1.03 L (1.2-3.4) k/cumm Absolute Monocytes 0.85 H (0.11-0.7) k/cumm Potassium 2.5 L* (3.5-5.1) mmol/L Carbon Dioxide 33.1 H (21.0-32.0) mmol/L BUN 1 L (7-18) mg/dL Creatinine 0.47 L (0.70-1.30) mg/dL Glucose 118 H D (74-106) mg/dL Calcium 7.2 L (8.5-10.1) mg/dL Total Bilirubin 1.3 H (0.2-1.0) mg/dL Alkaline Phosphatase 44 L (46-116) U/L Total Protein 5.1 L (6.4-8.2) g/dL Albumin 1.9 L (3.4-5.0) g/dL Urine Blood Trace-lysed H (Negative) Urine RBC 5-10 H (0-2) HPF Urine Opiates Screen (Negative) Ur THC Screen (Negative) Crossmatch Vital Signs Temperature 36.6 C 02/24/20 08:00 Temperature Source Temporal Artery Scan 02/24/20 08:00 Pulse 92 H 02/24/20 08:00 Pulse 89 02/22/20 20:50 Respiratory Rate 16 02/24/20 08:00 Respiratory Effort Non-Labored 02/24/20 04:14 Respiratory Depth Normal 02/24/20 04:14 Respiratory Pattern Normal 02/24/20 04:14 Blood Pressure 116/66 02/24/20 08:00 Blood Pressure Mean 84 02/23/20 05:00 Blood Pressure Position Supine 02/24/20 04:14 Pulse Oximetry 92 L 02/24/20 08:00 Oxygen Delivery Method Nasal Cannula 02/23/20 18:23 Oxygen Flow Rate 0 02/23/20 18:23 Pain Level 0 02/24/20 08:00 Comment 02/23/20 14:30 Intake & Output 02/23/20 02/23/20 02/24/20 11:59 23:59 11:59 Intake Total 3821.180 / 5196.013 1374.833 / 5196.013 1360 / 1360 Output Total 875 / 2175 1300 / 2175 1850 / 1850 Balance 2946.180 / 3021.013 74.833 / 3021.013 -490 / -490 Weight 54.431 kg Intake: IV 2951.180 / 4076.013 1124.833 / 4076.013 1360 / 1360 Oral 120 / 370 250 / 370 Blood Product 750 / 750 Rbc Leuko Reduced Unit 200 / 200 [id number] Rbc Leuko Reduced Unit 250 / 250 [id number] Rbc Leuko Reduced Unit 300 / 300 [id number] Output: Urine 875 / 2175 1300 / 2175 1850 / 1850 Other: Urine Color Yellow Yellow Pale Yellow Urine Appearance Clear Clear Clear Comment Palacios catheter in place and draining Palacios catheter in place and draining Palacios catheter in place and draining Stool Occult Blood Positive Positive Stool Size Small Small Stool Characteristics Soft Soft Liquid Black Voiding Methods Indwelling Catheter Laboratory Results WBC 9.18 k/cumm (4.4-10.8) 02/24/20 06:00 RBC 3.83 m/cumm (4.50-6.00) L 02/24/20 06:00 Hgb 10.2 g/dL (13.5-17.5) L 02/24/20 06:00 Hct 32.4 % (40.0-50.0) L 02/24/20 06:00 MCV 84.6 fL (80-95) 02/24/20 06:00 MCH 26.6 pg (27.0-33.0) L 02/24/20 06:00 MCHC 31.5 g/dL (32.0-36.0) L 02/24/20 06:00 RDW 17.6 % (11.8-14.1) H 02/24/20 06:00 Plt Count 182 x1000/uL (130-400) 02/24/20 06:00 MPV 11.0 fL (8.0-11.0) 02/24/20 06:00 Immature Gran % 0.2 % 02/24/20 06:00 Neutrophils % 77.6 02/24/20 06:00 Lymphocytes % 11.2 02/24/20 06:00 Monocytes % 9.3 02/24/20 06:00 Eosinophils % 1.5 02/24/20 06:00 Basophils % 0.2 02/24/20 06:00 Absolute Neutrophils 7.12 k/cumm (1.2-6.7) H 02/24/20 06:00 Absolute Lymphocytes 1.03 k/cumm (1.2-3.4) L 02/24/20 06:00 Absolute Monocytes 0.85 k/cumm (0.11-0.7) H 02/24/20 06:00 Absolute Eosinophils 0.14 k/cumm (0.0-0.7) 02/24/20 06:00 Absolute Basophils 0.02 k/cumm (0.0-0.2) 02/24/20 06:00 PT 11.4 sec (9.3-11.0) H 02/23/20 05:52 INR 1.1 (0.9-1.1) 02/23/20 05:52 APTT 25.6 sec (21.0-31.4) 02/22/20 20:32 Sodium 140 mmol/L (136-145) 02/24/20 06:00 Potassium 2.5 mmol/L (3.5-5.1) L* 02/24/20 06:00 Chloride 101 mmol/L (98-107) 02/24/20 06:00 Carbon Dioxide 33.1 mmol/L (21.0-32.0) H 02/24/20 06:00 Anion Gap 5.9 mmol/L (3-11) 02/24/20 06:00 BUN 1 mg/dL (7-18) L 02/24/20 06:00 Creatinine 0.47 mg/dL (0.70-1.30) L 02/24/20 06:00 Estimated GFR/1.73 m2 >= 60.00 (mL/min/1.73m2) 02/24/20 06:00 Glucose 118 mg/dL (74-106) H D 02/24/20 06:00 Lactate 1.1 mmol/L (0.6-1.4) 02/24/20 08:05 Calcium 7.2 mg/dL (8.5-10.1) L 02/24/20 06:00 Phosphorus 3.3 mg/dL (2.6-4.7) 02/23/20 05:52 Magnesium 1.6 mg/dL (1.8-2.4) L 02/23/20 05:52 Total Bilirubin 1.3 mg/dL (0.2-1.0) H 02/24/20 06:00 AST 35 U/L (15-37) 02/24/20 06:00 ALT 26 U/L (16-63) 02/24/20 06:00 Alkaline Phosphatase 44 U/L (46-116) L 02/24/20 06:00 Creatine Kinase 15 U/L (39-308) L 02/22/20 20:20 Troponin I < 0.05 ng/Ml (<0.06) 02/23/20 05:52 Total Protein 5.1 g/dL (6.4-8.2) L 02/24/20 06:00 Albumin 1.9 g/dL (3.4-5.0) L 02/24/20 06:00 Lipase 29 U/L (73-393) 02/23/20 05:52 Procalcitonin 0.5 ng/mL 02/22/20 20:20 Urine Color Yellow (Yellow) 02/23/20 14:00 Urine Clarity Clear (Clear) 02/23/20 14:00 Urine pH 6.5 (5-8) 02/23/20 14:00 Ur Specific [place] 1.020 (1.005-1.025) 02/23/20 14:00 Urine Protein Negative mg/dL (Negative) 02/23/20 14:00 Urine Ketones Negative mg/dL (Negative) 02/23/20 14:00 Urine Blood Trace-lysed (Negative) H 02/23/20 14:00 Urine Nitrite Negative (Negative) 02/23/20 14:00 Urine Bilirubin Negative (Negative) 02/23/20 14:00 Urine Urobilinogen 0.2 EU/dL (Up TO 0.2) 02/23/20 14:00 Ur Leukocyte Esterase Negative (Negative) 02/23/20 14:00 Urine RBC 5-10 HPF (0-2) H 02/23/20 14:00 Urine WBC 3-5 HPF (0-5) 02/23/20 14:00 Ur Epithelial Cells Rare HPF (Negative) 02/23/20 14:00 Urine Crystals Negative HPF (Negative) 02/23/20 14:00 Urine Bacteria Rare HPF (Negative) 02/23/20 14:00 Urine Casts Negative LPF (Negative) 02/23/20 14:00 Urine Mucus Negative (Negative) 02/23/20 14:00 Ur Culture Indicated? No 02/23/20 14:00 Urine Glucose Negative mg/dL (Negative) 02/23/20 14:00 Vancomycin Trough 17.3 ug/mL (10.0-20.0) 02/24/20 06:00 Urine Opiates Screen Positive (Negative) A 02/23/20 14:00 Urine Methadone Screen Negative (Negative) 02/23/20 14:00 Ur Barbiturates Screen Negative (Negative) 02/23/20 14:00 Ur Tricyclics Screen Negative (Negative) 02/23/20 14:00 Ur Amphetamines Screen Negative (Negative) 02/23/20 14:00 U Benzodiazepines Scrn Negative (Negative) 02/23/20 14:00 Urine Cocaine Screen Negative (Negative) 02/23/20 14:00 Ur THC Screen Positive (Negative) A 02/23/20 14:00 Ethyl Alcohol 97.5 mg/dL (<3) 02/22/20 20:20 Patient ABO/Rh A Negative 02/22/20 21:00 Antibody Screen Negative 02/22/20 21:00 Crossmatch See Detail 02/22/20 21:00
[2020-02-24] MEDS: Tiotropium Bromide-Respimat 10 PUFF INH IH (10:52)
[2020-02-24 11:14] LABS: Potassium 2.7 mmol/L (3.5-5.1)
[2020-02-24 11:18] LABS: Campylobacter PCR Negative (Negative); Salmonella PCR Negative (Negative); Shiga Toxin PCR Negative (Negative); Shigella/Enteroinvasive Ecoli Negative (Negative)
[2020-02-24] MEDS: PANTOPRAZOLE 80 MG in Normal Saline 100 ML 10 MG IV ×2 (11:33→21:27)
[2020-02-24] MEDS: POTASSIUM CHLORIDE 20 MEQ/100 ML BAG 50 MEQ IVPB (12:15)
--- NOTE | 2020-02-24 12:27 | NS.NUTBLAN_ITS ---
Date of service: 02/24/20 Time of Service: 12:27 Nutritional Consult ASSESSMENT: 60 year old male admitted to RICU with acute GI bleed, erosive gastritis, anemia, hypokalemia, suspected covid 19 infection with long history of alcohol and tobacco use. Has history of fatty liver. Medical chart indicates loss of 20 lbs in last year, appears cachexic per MD consult. At high nutritional risk in view of low weight, significant weight loss, increased nutrient needs with depletion of multiple vitamins/minerals. Estimated Needs: 0461-4735 kcal, 54-64 g protein, 1800 ml. At risk for refeeding syndrome due to low weight. Meds inlcude magnesium, thiamin, MVI, morphine, propofol. Labs i ndicate elevated liver enzymes, depleted albumin. Current vitamin/mineral repletion meeting needs. Following Clear Liquid Diet and completing about 50%. Not meeting nutrient needs at this time. Will supplement diet with ensure clear TID to better meet nutrient and calorie needs for weight regain/maintenance/repletion. NUTRITIONAL DIAGNOSIS: Malnutrition in context of chronic and acute illness Increased nutrient needs as evidenced by abnormal labs INTERVENTION: Diet as ordered ensure clear TID continue vitamin/mineral repletion MONITORING AND EVALUATION: weight, po intake, labs Time Spent in Nutritional Counseling and Treatment: 0 time spent face to face
[2020-02-24] MEDS: Lactated Ringers 1,000 ML 100 ML IV (14:05)
--- NOTE | 2020-02-24 14:31 | STOM_PTH ---
PATIENT: NAVARRO KRISHNA LOC: [facility] Muhammad#:[id number] AGE/SX: 60/M ROOM: RE02/22/[address]: Laila Ontiveros : 1960 BED: A DIS: 02/29/2020 SPEC #: [id number] RECD: 02/24/20 16:32 STATUS: WHIT REQ #: [id number] JOSE: 02/24/20 14:[address]: Gabriella Strickland DEPT: Surgical Specimen RECD BY: Rey Villalta ENTERED: 02/24/20 16:34 SP TYPE: STOMACH OTHR DR: Jonathan Black DO Tissues: 1 - STOMACH BIOPSY 2 - STOMACH BIOPSY Procedures: GROSS AND MICRO LEVEL 4 Comments: [id number]
--- NOTE | 2020-02-24 15:11 | W.PM.OP ---
Date of service: 02/24/20 Time of Service: 15:11 Operative Note Operative Note DATE OF PROCEDURE: 02/24/20 PRE-OP DIAGNOSIS: upper GI bleed POST-OP DIAGNOSIS: other severe, diffuse, erosive gastritis x3 areas of arterial bleeding. PROCEDURE: Bx x2 of fundus and GE junction. fulguration x3 areas of arterial bleeding SURGEON: Gabriella Strickland ANESTHESIA: GETA ESTIMATED BLOOD LOSS: 5 PATHOLOGY: other COMPLICATIONS: None Patient was transported to: other (RICU) Patient's condition: critical Procedure Description: informed consent was obtained from the patient. the pt was admitted over in the RICU. Monitors were applied and a time out was done. The patients name, date of , procedure type, allergies to medications and metal in their body was reviewed. A bite block was placed the gastroscope was advanced through the oropharynx which was grossly normal into the esophagus. The proximal and mid-esophagus were nl. In the distal esophagus there was mild esophagitis. Bx was done of this area. Minimal bleeding. specimen was retrieved. The scope was advanced into the stomach and through the pylorus into the 3rd portion of the duodenum. The duodenum was noted to be nl. Biopsies were not done. The scope was retracted back into the stomach and biopsies were done of the greater curve. The scope was retroflexed. The cardia and fundic portion and throughout the whole stomach- severe erosive gastritis. However, in the cardiac/fundic region- is seems to be more severe. There were x3 specific areas in the fundus that had some generalized arterial oozing. These were fulgurated. The scope was retracted back into the esophagus and biopsies were done of the GE junction to rule out Hopson's. The Z line was irregular. The scope was removed and the patient was taken back to the RICU and extubation is planned. Follow up:
[2020-02-24 15:43] LABS: COVID-19 RT-PCR Result Negative (Negative)
--- NOTE | 2020-02-24 15:50 | PGE_ITS ---
Date of Service Date of service: 02/24/20 Time of Service: 15:50 Assessment and Plan Assessment and plan (1) Acute GI bleeding: Status: Acute Assessment and plan: GI bleeding of unknown etiology. There is suspicion he may have a small bowel AVM. His hemoglobin is come up nicely after 3 units of packed cells, 10.2. He still passing melanotic stools though that appears to be clearing. Upper endoscopy is planned but potassium level is low and COVID status was pending so it was postponed. Continue PPI therapy. (2) LLQ abdominal pain: Status: Acute Assessment and plan: Lower abdominal pain could be related to the GI bleeding and increased transit time. Culture for Salmonella Shigella Campylobacter and Shiga toxin are negative. No other abdominal pathology was found. (3) Alcohol use disorder: Status: Acute Assessment and plan: Evidence of acute alcohol withdrawal syndrome. He is being medicated with lorazepam. Continue daily banana bag. Urine drug screen positive for opiates and THC. (4) Suspected COVID-19 virus infection: Status: Acute Assessment and plan: Ruled out for COVID-19. He is being transitioned out of the respiratory intensive care unit to the medical surgical floor. (5) Right clavicle fracture: Status: Acute Assessment and plan: Found on CT of the chest. Further Orth O follow-up as an outpatient. (6) Sepsis: Status: Suspected Assessment and plan: He has been off of pressors. Blood cultures are no growth at 24 hours. 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 Subjective Subjective Interval history since last seen: 60-year-old man admitted with GI bleed/sepsis syndrome. He is also being monitored for alcohol withdrawal. His CIWA scoring has been as high as 14. He has passed more melanotic stools since admission. He states he overall feels better. He still has some suprapubic abdominal pain. No respiratory difficulty. He has been n.p.o. for upper endoscopy. Exam Narrative Exam Narrative: On exam somewhat disheveled appearing man but no apparent distress. He answers questions quite readily. His lung exam is clear on the right and left. Heart sounds are regular. His abdomen is overall soft. Minimal tenderness in the suprapubic region. No guarding no rebound. Lower extremities no edema. Neurologic no acute abnormalities. Objective Objective Clinical Data: Abnormal lab results 02/24/20 02/24/20 02/24/20 Range/Units 06:00 06:00 10:55 RBC 3.83 L (4.50-6.00) m/cumm Hgb 10.2 L (13.5-17.5) g/dL Hct 32.4 L (40.0-50.0) % MCH 26.6 L (27.0-33.0) pg MCHC 31.5 L (32.0-36.0) g/dL RDW 17.6 H (11.8-14.1) % Absolute Neutrophils 7.12 H (1.2-6.7) k/cumm Absolute Lymphocytes 1.03 L (1.2-3.4) k/cumm Absolute Monocytes 0.85 H (0.11-0.7) k/cumm Potassium 2.5 L* 2.7 L* (3.5-5.1) mmol/L Carbon Dioxide 33.1 H (21.0-32.0) mmol/L BUN 1 L (7-18) mg/dL Creatinine 0.47 L (0.70-1.30) mg/dL Glucose 118 H D (74-106) mg/dL Calcium 7.2 L (8.5-10.1) mg/dL Total Bilirubin 1.3 H (0.2-1.0) mg/dL Alkaline Phosphatase 44 L (46-116) U/L Total Protein 5.1 L (6.4-8.2) g/dL Albumin 1.9 L (3.4-5.0) g/dL Vital Signs Temperature 37.1 C 02/24/20 15:21 Temperature Source Temporal Artery Scan 02/24/20 08:00 Pulse 100 H 02/24/20 15:19 Pulse 89 02/22/20 20:50 Respiratory Rate 34 H 02/24/20 15:21 Respiratory Effort Non-Labored 02/24/20 13:30 Respiratory Depth Normal 02/24/20 13:30 Respiratory Pattern Normal 02/24/20 13:30 Blood Pressure 82/56 L 02/24/20 15:21 Blood Pressure Mean 84 02/23/20 05:00 Blood Pressure Position Supine 02/24/20 13:30 Pulse Oximetry 95 02/24/20 15:21 Oxygen Delivery Method Nasal Cannula 02/24/20 15:21 Oxygen Flow Rate 6 02/24/20 15:21 Pain Level 0 02/24/20 13:30 Comment 02/23/20 14:30 Intake & Output 02/23/20 02/24/20 02/24/20 23:59 11:59 23:59 Intake Total 1374.833 / 5196.013 1600 / 2539.567 939.567 / 2539.567 Output Total 1300 / 2175 3650 / 3650 Balance 74.833 / 3021.013 -2050 / -1110.433 939.567 / -1110.433 Intake: IV 1124.833 / 4076.013 1600 / 2539.567 939.567 / 2539.567 Oral 250 / 370 Output: Urine 1300 / 2175 3650 / 3650 Other: Urine Color Yellow Pale Yellow Urine Appearance Clear Clear Comment Palacios catheter in place and draining Palacios catheter in place and draining large amounts of pale yellow urine. Palacios catheter in place and drai izzy large amounts of pale yellow urine. Stool Occult Blood Positive Stool Size Moderate Stool Characteristics Soft Brown Voiding Methods Indwelling Catheter Laboratory Results WBC 9.18 k/cumm (4.4-10.8) 02/24/20 06:00 RBC 3.83 m/cumm (4.50-6.00) L 02/24/20 06:00 Hgb 10.2 g/dL (13.5-17.5) L 02/24/20 06:00 Hct 32.4 % (40.0-50.0) L 02/24/20 06:00 MCV 84.6 fL (80-95) 02/24/20 06:00 MCH 26.6 pg (27.0-33.0) L 02/24/20 06:00 MCHC 31.5 g/dL (32.0-36.0) L 02/24/20 06:00 RDW 17.6 % (11.8-14.1) H 02/24/20 06:00 Plt Count 182 x1000/uL (130-400) 02/24/20 06:00 MPV 11.0 fL (8.0-11.0) 02/24/20 06:00 Immature Gran % 0.2 % 02/24/20 06:00 Neutrophils % 77.6 02/24/20 06:00 Lymphocytes % 11.2 02/24/20 06:00 Monocytes % 9.3 02/24/20 06:00 Eosinophils % 1.5 02/24/20 06:00 Basophils % 0.2 02/24/20 06:00 Absolute Neutrophils 7.12 k/cumm (1.2-6.7) H 02/24/20 06:00 Absolute Lymphocytes 1.03 k/cumm (1.2-3.4) L 02/24/20 06:00 Absolute Monocytes 0.85 k/cumm (0.11-0.7) H 02/24/20 06:00 Absolute Eosinophils 0.14 k/cumm (0.0-0.7) 02/24/20 06:00 Absolute Basophils 0.02 k/cumm (0.0-0.2) 02/24/20 06:00 PT 11.4 sec (9.3-11.0) H 02/23/20 05:52 INR 1.1 (0.9-1.1) 02/23/20 05:52 APTT 25.6 sec (21.0-31.4) 02/22/20 20:32 Sodium 140 mmol/L (136-145) 02/24/20 06:00 Potassium 2.7 mmol/L (3.5-5.1) L* 02/24/20 10:55 Chloride 101 mmol/L (98-107) 02/24/20 06:00 Carbon Dioxide 33.1 mmol/L (21.0-32.0) H 02/24/20 06:00 Anion Gap 5.9 mmol/L (3-11) 02/24/20 06:00 BUN 1 mg/dL (7-18) L 02/24/20 06:00 Creatinine 0.47 mg/dL (0.70-1.30) L 02/24/20 06:00 Estimated GFR/1.73 m2 >= 60.00 (mL/min/1.73m2) 02/24/20 06:00 Glucose 118 mg/dL (74-106) H D 02/24/20 06:00 Lactate 1.1 mmol/L (0.6-1.4) 02/24/20 08:05 Calcium 7.2 mg/dL (8.5-10.1) L 02/24/20 06:00 Phosphorus 3.3 mg/dL (2.6-4.7) 02/23/20 05:52 Magnesium 1.6 mg/dL (1.8-2.4) L 02/23/20 05:52 Total Bilirubin 1.3 mg/dL (0.2-1.0) H 02/24/20 06:00 AST 35 U/L (15-37) 02/24/20 06:00 ALT 26 U/L (16-63) 02/24/20 06:00 Alkaline Phosphatase 44 U/L (46-116) L 02/24/20 06:00 Creatine Kinase 15 U/L (39-308) L 02/22/20 20:20 Troponin I < 0.05 ng/Ml (<0.06) 02/23/20 05:52 Total Protein 5.1 g/dL (6.4-8.2) L 02/24/20 06:00 Albumin 1.9 g/dL (3.4-5.0) L 02/24/20 06:00 Lipase 29 U/L (73-393) 02/23/20 05:52 Procalcitonin 0.5 ng/mL 02/22/20 20:20 Urine Color Yellow (Yellow) 02/23/20 14:00 Urine Clarity Clear (Clear) 02/23/20 14:00 Urine pH 6.5 (5-8) 02/23/20 14:00 Ur Specific [place] 1.020 (1.005-1.025) 02/23/20 14:00 Urine Protein Negative mg/dL (Negative) 02/23/20 14:00 Urine Ketones Negative mg/dL (Negative) 02/23/20 14:00 Urine Blood Trace-lysed (Negative) H 02/23/20 14:00 Urine Nitrite Negative (Negative) 02/23/20 14:00 Urine Bilirubin Negative (Negative) 02/23/20 14:00 Urine Urobilinogen 0.2 EU/dL (Up TO 0.2) 02/23/20 14:00 Ur Leukocyte Esterase Negative (Negative) 02/23/20 14:00 Urine RBC 5-10 HPF (0-2) H 02/23/20 14:00 Urine WBC 3-5 HPF (0-5) 02/23/20 14:00 Ur Epithelial Cells Rare HPF (Negative) 02/23/20 14:00 Urine Crystals Negative HPF (Negative) 02/23/20 14:00 Urine Bacteria Rare HPF (Negative) 02/23/20 14:00 Urine Casts Negative LPF (Negative) 02/23/20 14:00 Urine Mucus Negative (Negative) 02/23/20 14:00 Ur Culture Indicated? No 02/23/20 14:00 Urine Glucose Negative mg/dL (Negative) 02/23/20 14:00 Stool Campylobacter PCR Negative (Negative) 02/23/20 04:40 Stool Salmonella PCR Negative (Negative) 02/23/20 04:40 Stool Shigella PCR Negative (Negative) 02/23/20 04:40 Vancomycin Trough 17.3 ug/mL (10.0-20.0) 02/24/20 06:00 Urine Opiates Screen Positive (Negative) A 02/23/20 14:00 Urine Methadone Screen Negative (Negative) 02/23/20 14:00 Ur Barbiturates Screen Negative (Negative) 02/23/20 14:00 Ur Tricyclics Screen Negative (Negative) 02/23/20 14:00 Ur Amphetamines Screen Negative (Negative) 02/23/20 14:00 U Benzodiazepines Scrn Negative (Negative) 02/23/20 14:00 Urine Cocaine Screen Negative (Negative) 02/23/20 14:00 Ur THC Screen Positive (Negative) A 02/23/20 14:00 Ethyl Alcohol 97.5 mg/dL (<3) 02/22/20 20:20 Coronavirus (PCR) Negative (Negative) 02/23/20 03:42 Shiga Toxin (PCR) Negative (Negative) 02/23/20 04:40 Patient ABO/Rh A Negative 02/22/20 21:00 Antibody Screen Negative 02/22/20 21:00 Crossmatch See Detail 02/22/20 21:00
[2020-02-24 17:40] LABS: Potassium 2.6 mmol/L (3.5-5.1)
[2020-02-24] MEDS: Sucralfate 1 GM TAB PO ×2 (17:41→21:28)
--- NOTE | 2020-02-24 17:48 | PDOC.CMPRO ---
- If Service Date Differs Date of service: 02/24/20 Time of Service: 17:48 Care Management Progress Note S/O: Per report, Alton ruled out for Covid 19 and was transitioned the the ICU. His hemoglobin is now 10.2, which is a big improvement from when he arrived, after receiving 3 units of blood. The origin of his GI bleed is still unknown. Per RN, he was not very communicative today. His CWA score was 14 as of now. CM will check in tomorrow to evaluate needs. CM will continue to follow. A: Alton is a 60 year old male admitted to [facility] on 02/22/20 with Acute GI bleeding. P: Alton is currently being monitored and treated at ICU level of care. Evaluation needed to determine discharge considerations. Anticipate he will return home when medically cleared, with his mother transporting him. CM will continue to follow and support discharge planning considerations.
--- NOTE | 2020-02-24 17:52 | RESPIRATORY ---
RT spoke with patient in which he stated he does not have home oxygen.
[2020-02-24] MEDS: IRON SUCROSE COMPLEX 200 MG in Normal Saline 100 ML 400 MG IVPB (19:28)
[2020-02-24 20:26] LABS: HCT 31.3 % (40.0-50.0); HGB 9.8 g/dL (13.5-17.5)
[2020-02-24 20:37] LABS: Potassium 2.8 mmol/L (3.5-5.1)
--- NOTE | 2020-02-24 20:43 | PGE_ITS ---
Date of Service Date of service: 02/24/20 Time of Service: 20:43 Objective Objective Clinical Data: Abnormal lab results 02/24/20 02/24/20 02/24/20 Range/Units 06:00 06:00 10:55 RBC 3.83 L (4.50-6.00) m/cumm Hgb 10.2 L (13.5-17.5) g/dL Hct 32.4 L (40.0-50.0) % MCH 26.6 L (27.0-33.0) pg MCHC 31.5 L (32.0-36.0) g/dL RDW 17.6 H (11.8-14.1) % Absolute Neutrophils 7.12 H (1.2-6.7) k/cumm Absolute Lymphocytes 1.03 L (1.2-3.4) k/cumm Absolute Monocytes 0.85 H (0.11-0.7) k/cumm Potassium 2.5 L* 2.7 L* (3.5-5.1) mmol/L Carbon Dioxide 33.1 H (21.0-32.0) mmol/L BUN 1 L (7-18) mg/dL Creatinine 0.47 L (0.70-1.30) mg/dL Glucose 118 H D (74-106) mg/dL Calcium 7.2 L (8.5-10.1) mg/dL Total Bilirubin 1.3 H (0.2-1.0) mg/dL Alkaline Phosphatase 44 L (46-116) U/L Total Protein 5.1 L (6.4-8.2) g/dL Albumin 1.9 L (3.4-5.0) g/dL 02/24/20 02/24/20 02/24/20 Range/Units 16:00 20:12 20:12 RBC (4.50-6.00) m/cumm Hgb 9.8 L (13.5-17.5) g/dL Hct 31.3 L (40.0-50.0) % MCH (27.0-33.0) pg MCHC (32.0-36.0) g/dL RDW (11.8-14.1) % Absolute Neutrophils (1.2-6.7) k/cumm Absolute Lymphocytes (1.2-3.4) k/cumm Absolute Monocytes (0.11-0.7) k/cumm Potassium 2.6 L* 2.8 L* (3.5-5.1) mmol/L Carbon Dioxide (21.0-32.0) mmol/L BUN (7-18) mg/dL Creatinine (0.70-1.30) mg/dL Glucose (74-106) mg/dL Calcium (8.5-10.1) mg/dL Total Bilirubin (0.2-1.0) mg/dL Alkaline Phosphatase (46-116) U/L Total Protein (6.4-8.2) g/dL Albumin (3.4-5.0) g/dL Vital Signs Temperature 38.0 C H 02/24/20 19:13 Temperature Source Temporal Artery Scan 02/24/20 17:18 Pulse 94 H 02/24/20 19:00 Pulse 95 H 02/24/20 19:10 Respiratory Rate 25 H 02/24/20 19:10 Respiratory Effort Non-Labored 02/24/20 13:30 Respiratory Depth Normal 02/24/20 17:18 Respiratory Pattern Normal 02/24/20 17:18 Blood Pressure 99/70 L 02/24/20 19:00 Blood Pressure Mean 76 02/24/20 19:00 Blood Pressure Position Supine 02/24/20 13:30 Pulse Oximetry 93 L 02/24/20 19:10 Respiratory End-tidal CO2 31 02/24/20 13:50 Oxygen Delivery Method Nasal Cannula 02/24/20 17:52 Oxygen Flow Rate 3 02/24/20 17:52 Fraction of Inspired Oxygen (FIO2) 40 02/24/20 13:50 Pain Level 0 02/24/20 19:13 Comment 02/23/20 14:30 Intake & Output 02/23/20 02/24/20 02/24/20 23:59 11:59 23:59 Intake Total 1374.833 / 5196.013 1600 / 2839.667 1239.667 / 2839.667 Output Total 1300 / 2175 3650 / 4700 1050 / 4700 Balance 74.833 / 3021.013 -2049 / -0.333 189.667 / -0.333 Weight 54.431 kg Intake: IV 1124.833 / 4076.013 1600 / 2839.667 1239.667 / 2839.667 Oral 250 / 370 Output: Urine 1300 / 2175 3650 / 4700 1050 / 4700 Other: Urine Color Yellow Pale Pale Yellow Yellow Straw Urine Appearance Clear Clear Clear Comment Palacios catheter in place and draining Palacios catheter in place and draining large amounts of pale yellow urine. Palacios catheter in place and draining large amounts of pale yellow urine. Stool Occult Blood Positive Stool Size Moderate Stool Characteristics Soft Brown Voiding Methods Indwelling Catheter Laboratory Results WBC 9.18 k/cumm (4.4-10.8) 02/24/20 06:00 RBC 3.83 m/cumm (4.50-6.00) L 02/24/20 06:00 Hgb 9.8 g/dL (13.5-17.5) L 02/24/20 20:12 Hct 31.3 % (40.0-50.0) L 02/24/20 20:12 MCV 84.6 fL (80-95) 02/24/20 06:00 MCH 26.6 pg (27.0-33.0) L 02/24/20 06:00 MCHC 31.5 g/dL (32.0-36.0) L 02/24/20 06:00 RDW 17.6 % (11.8-14.1) H 02/24/20 06:00 Plt Count 182 x1000/uL (130-400) 02/24/20 06:00 MPV 11.0 fL (8.0-11.0) 02/24/20 06:00 Immature Gran % 0.2 % 02/24/20 06:00 Neutrophils % 77.6 02/24/20 06:00 Lymphocytes % 11.2 02/24/20 06:00 Monocytes % 9.3 02/24/20 06:00 Eosinophils % 1.5 02/24/20 06:00 Basophils % 0.2 02/24/20 06:00 Absolute Neutrophils 7.12 k/cumm (1.2-6.7) H 02/24/20 06:00 Absolute Lymphocytes 1.03 k/cumm (1.2-3.4) L 02/24/20 06:00 Absolute Monocytes 0.85 k/cumm (0.11-0.7) H 02/24/20 06:00 Absolute Eosinophils 0.14 k/cumm (0.0-0.7) 02/24/20 06:00 Absolute Basophils 0.02 k/cumm (0.0-0.2) 02/24/20 06:00 PT 11.4 sec (9.3-11.0) H 02/23/20 05:52 INR 1.1 (0.9-1.1) 02/23/20 05:52 APTT 25.6 sec (21.0-31.4) 02/22/20 20:32 Sodium 140 mmol/L (136-145) 02/24/20 06:00 Potassium 2.8 mmol/L (3.5-5.1) L* 02/24/20 20:12 Chloride 101 mmol/L (98-107) 02/24/20 06:00 Carbon Dioxide 33.1 mmol/L (21.0-32.0) H 02/24/20 06:00 Anion Gap 5.9 mmol/L (3-11) 02/24/20 06:00 BUN 1 mg/dL (7-18) L 02/24/20 06:00 Creatinine 0.47 mg/dL (0.70-1.30) L 02/24/20 06:00 Estimated GFR/1.73 m2 >= 60.00 (mL/min/1.73m2) 02/24/20 06:00 Glucose 118 mg/dL (74-106) H D 02/24/20 06:00 Lactate 1.1 mmol/L (0.6-1.4) 02/24/20 08:05 Calcium 7.2 mg/dL (8.5-10.1) L 02/24/20 06:00 Phosphorus 3.3 mg/dL (2.6-4.7) 02/23/20 05:52 Magnesium 1.6 mg/dL (1.8-2.4) L 02/23/20 05:52 Total Bilirubin 1.3 mg/dL (0.2-1.0) H 02/24/20 06:00 AST 35 U/L (15-37) 02/24/20 06:00 ALT 26 U/L (16-63) 02/24/20 06:00 Alkaline Phosphatase 44 U/L (46-116) L 02/24/20 06:00 Creatine Kinase 15 U/L (39-308) L 02/22/20 20:20 Troponin I < 0.05 ng/Ml (<0.06) 02/23/20 05:52 Total Protein 5.1 g/dL (6.4-8.2) L 02/24/20 06:00 Albumin 1.9 g/dL (3.4-5.0) L 02/24/20 06:00 Lipase 29 U/L (73-393) 02/23/20 05:52 Procalcitonin 0.5 ng/mL 02/22/20 20:20 Urine Color Yellow (Yellow) 02/23/20 14:00 Urine Clarity Clear (Clear) 02/23/20 14:00 Urine pH 6.5 (5-8) 02/23/20 14:00 Ur Specific [place] 1.020 (1.005-1.025) 02/23/20 14:00 Urine Protein Negative mg/dL (Negative) 02/23/20 14:00 Urine Ketones Negative mg/dL (Negative) 02/23/20 14:00 Urine Blood Trace-lysed (Negative) H 02/23/20 14:00 Urine Nitrite Negative (Negative) 02/23/20 14:00 Urine Bilirubin Negative (Negative) 02/23/20 14:00 Urine Urobilinogen 0.2 EU/dL (Up TO 0.2) 02/23/20 14:00 Ur Leukocyte Esterase Negative (Negative) 02/23/20 14:00 Urine RBC 5-10 HPF (0-2) H 02/23/20 14:00 Urine WBC 3-5 HPF (0-5) 02/23/20 14:00 Ur Epithelial Cells Rare HPF (Negative) 02/23/20 14:00 Urine Crystals Negative HPF (Negative) 02/23/20 14:00 Urine Bacteria Rare HPF (Negative) 02/23/20 14:00 Urine Casts Negative LPF (Negative) 02/23/20 14:00 Urine Mucus Negative (Negative) 02/23/20 14:00 Ur Culture Indicated? No 02/23/20 14:00 Urine Glucose Negative mg/dL (Negative) 02/23/20 14:00 Stool Campylobacter PCR Negative (Negative) 02/23/20 04:40 Stool Salmonella PCR Negative (Negative) 02/23/20 04:40 Stool Shigella PCR Negative (Negative) 02/23/20 04:40 Vancomycin Trough 17.3 ug/mL (10.0-20.0) 02/24/20 06:00 Urine Opiates Screen Positive (Negative) A 02/23/20 14:00 Urine Methadone Screen Negative (Negative) 02/23/20 14:00 Ur Barbiturates Screen Negative (Negative) 02/23/20 14:00 Ur Tricyclics Screen Negative (Negative) 02/23/20 14:00 Ur Amphetamines Screen Negative (Negative) 02/23/20 14:00 U Benzodiazepines Scrn Negative (Negative) 02/23/20 14:00 Urine Cocaine Screen Negative (Negative) 02/23/20 14:00 Ur THC Screen Positive (Negative) A 02/23/20 14:00 Ethyl Alcohol 97.5 mg/dL (<3) 02/22/20 20:20 Coronavirus (PCR) Negative (Negative) 02/23/20 03:42 Shiga Toxin (PCR) Negative (Negative) 02/23/20 04:40 Patient ABO/Rh A Negative 02/22/20 21:00 Antibody Screen Negative 02/22/20 21:00 Crossmatch See Detail 02/22/20 21:00
[2020-02-24] MEDS: POTASSIUM CHLORIDE/D5-0.9%NACL 1,000 ML 100 MEQ IV (23:23)
[2020-02-25] VITALS (114 sets, daily range): BP systolic 80–121; BP diastolic 52–83; PULSE 80–115; RESP 18–38; TEMP 36.1–37.4; O2SAT 85–98
[2020-02-25] MEDS: Normal Saline Flush 10 ML SYR IVP ×3 (00:21→21:26)
[2020-02-25] MEDS: LORazepam 2 MG/ML VIAL IVP ×2 (00:48→03:48)
[2020-02-25] MEDS: Sucralfate 1 GM TAB PO ×4 (03:49→21:04)
[2020-02-25] MEDS: PIPERACILLIN/TAZO 4.5 GM in Normal Saline 100 ML IVPB (06:18)
[2020-02-25 07:01] LABS: HGB 9.4 g/dL (13.5-17.5); Mean Corp. HGB Concentration 31.3 g/dL (32.0-36.0); Mean Corpuscular Hemoglobin 26.8 pg (27.0-33.0); Mean Corpuscular Volume 85.5 fL (80-95); Mean Platelet Volume 10.4 fL (8.0-11.0); Platelet Count 178 x1000/uL (130-400); RBC 3.51 m/cumm (4.50-6.00); RBC Distribution Width 17.9 % (11.8-14.1); White Blood Cell Count 6.93 k/cumm (4.4-10.8)
[2020-02-25 07:20] LABS: Anion Gap 5.4 mmol/L (3-11); BUN 0 mg/dL (7-18); CO2 30.6 mmol/L (21.0-32.0); CREATININE 0.46 mg/dL (0.70-1.30); Calcium 7.2 mg/dL (8.5-10.1); Chloride 105 mmol/L (98-107); Glucose 98 mg/dL (74-106); Sodium 141 mmol/L (136-145)
[2020-02-25 07:30] LABS: Potassium 2.5 mmol/L (3.5-5.1)
[2020-02-25 07:40] LABS: Iron 181 ug/dL (65-175); Total Iron Binding Capacity 182 ug/dL (250-450); Transferrin Sat 99 % (20-55)
[2020-02-25] MEDS: Tiotropium Bromide-Respimat 10 PUFF INH IH (07:50)
[2020-02-25] MEDS: PANTOPRAZOLE 80 MG in Normal Saline 100 ML 10 MG IV ×2 (08:19→18:22)
[2020-02-25] MEDS: MAGNESIUM SULFATE 2 GM/50 ML BAG IVPB (08:35)
[2020-02-25] MEDS: POTASSIUM CHLORIDE/D5-0.9%NACL 1,000 ML 100 MEQ IV ×2 (08:37→21:31)
--- NOTE | 2020-02-25 09:35 | PDOC.CMPRO ---
- If Service Date Differs Date of service: 02/25/20 Time of Service: 09:35 Care Management Progress Note S/O: Alton continues to meet ICU level of care. CM is unable to meet with him today, as he is sound asleep when CM comes to meet with him. A review of his chart reveals he continues on PPI infusion and is experiencing moderate alcohol withdrawal symptoms, treated with lorazepam as needed. CM will continue to follow. A: Alton is a 60 year old male admitted to [facility] on 02/22/2020 for a GI bleed and sepsis. P: Anticipate Alton will return home with no new services when medically cleared by provider. He will follow-up with his PCP and ortho on an outpatient basis as directed. Transport home will be provided by his mom via private vehicle when ready. CM will continue to follow and support discharge planning considerations.
[2020-02-25] MEDS: MULTIVITAMIN 10 ML, THIAMINE 100 MG, FOLIC ACID 1 MG in DEXTROSE 5%-0.45% SALINE 1,000 ML 42 ML IV (10:10)
[2020-02-25] MEDS: POTASSIUM CHLORIDE 10 MEQ/100 ML BAG 100 MEQ IVPB ×4 (10:11→13:35)
--- NOTE | 2020-02-25 10:12 | W.PM.PROGNOT ---
Date of Service Date of service: 02/25/20 Time of Service: 10:13 Assessment and Plan Assessment and plan (1) Acute GI bleeding: Status: Acute Assessment and plan: Hgb stable, no active bleeding Keep on clear liquids Continue to monitor Subjective Subjective Interval history since last seen: Patient denies abdominal pain He is not aware of any recent stools. Tolerated clear liquids without pain or N/V Nurse reports no bloody stools today. Exam Narrative Exam Narrative: Arousable but drifts off during conversation Abdomen soft, nontender Objective Objective Clinical Data: Abnormal lab results 02/24/20 02/24/20 02/24/20 Range/Units 10:55 16:00 20:12 RBC (4.50-6.00) m/cumm Hgb (13.5-17.5) g/dL Hct (40.0-50.0) % MCH (27.0-33.0) pg MCHC (32.0-36.0) g/dL RDW (11.8-14.1) % Potassium 2.7 L* 2.6 L* 2.8 L* (3.5-5.1) mmol/L BUN (7-18) mg/dL Creatinine (0.70-1.30) mg/dL Calcium (8.5-10.1) mg/dL Magnesium (1.8-2.4) mg/dL Iron (65-175) ug/dL TIBC (250-450) ug/dL Transferrin % Sat (20-55) % 02/24/20 02/25/20 02/25/20 Range/Units 20:12 06:15 06:15 RBC (4.50-6.00) m/cumm Hgb 9.8 L (13.5-17.5) g/dL Hct 31.3 L (40.0-50.0) % MCH (27.0-33.0) pg MCHC (32.0-36.0) g/dL RDW (11.8-14.1) % Potassium 2.5 L* (3.5-5.1) mmol/L BUN 0 L (7-18) mg/dL Creatinine 0.46 L (0.70-1.30) mg/dL Calcium 7.2 L (8.5-10.1) mg/dL Magnesium 1.0 L (1.8-2.4) mg/dL Iron 181 H (65-175) ug/dL TIBC 182 L (250-450) ug/dL Transferrin % Sat 99 H (20-55) % 02/25/20 Range/Units 06:15 RBC 3.51 L (4.50-6.00) m/cumm Hgb 9.4 L (13.5-17.5) g/dL Hct 30.0 L (40.0-50.0) % MCH 26.8 L (27.0-33.0) pg MCHC 31.3 L (32.0-36.0) g/dL RDW 17.9 H (11.8-14.1) % Potassium (3.5-5.1) mmol/L BUN (7-18) mg/dL Creatinine (0.70-1.30) mg/dL Calcium (8.5-10.1) mg/dL Magnesium (1.8-2.4) mg/dL Iron (65-175) ug/dL TIBC (250-450) ug/dL Transferrin % Sat (20-55) % Vital Signs Temperature 98.6 F 02/25/20 08:00 Temperature Source Temporal Artery Scan 02/25/20 08:00 Pulse 99 H 02/25/20 10:02 Pulse 101 H 02/25/20 10:02 Respiratory Rate 25 H 02/25/20 10:02 Respiratory Effort Non-Labored 02/25/20 08:00 Respiratory Depth Shallow 02/25/20 08:00 Respiratory Pattern Normal 02/25/20 08:00 Blood Pressure 103/64 02/25/20 10:02 Blood Pressure Mean 72 02/25/20 10:02 Blood Pressure Position Supine 02/25/20 08:00 Pulse Oximetry 94 L 02/25/20 10:05 Respiratory End-tidal CO2 31 02/24/20 13:50 Oxygen Delivery Method Nasal Cannula 02/25/20 10:05 Oxygen Flow Rate 1 02/25/20 10:05 Fraction of Inspired Oxygen (FIO2) 40 02/24/20 13:50 Pain Level 0 02/25/20 08:00 Comment 02/23/20 14:30 Intake & Output 02/24/20 02/24/20 02/25/20 11:59 23:59 11:59 Intake Total 1600 / 3973.667 2373.667 / 3973.667 1903.333 / 1903.333 Output Total 3650 / 5950 2300 / 5950 3430 / 3430 Balance -2049 -1975.333 73.667 / -1975.333 -1526.667 / -1526.667 Weight 119 lb 15.997 oz Intake: IV 1600 / 3973.667 2373.667 / 3973.667 1873.333 / 187.333 Oral Output: Urine 3650 / 5950 2300 / 5950 3430 / 3430 Other: Urine Color Pale Pale Yellow Yellow Yellow Urine Appearance Clear Cloudy Clear Comment Palacios catheter in place and draining large amounts of pale yellow urine. Palacios catheter. Palacios catheter intact and draining clear yellow urine. Stool Occult Blood Positive Positive Stool Size Moderate Small Stool Characteristics Soft Soft Brown Black Laboratory Results WBC 6.93 k/cumm (4.4-10.8) 02/25/20 06:15 RBC 3.51 m/cumm (4.50-6.00) L 02/25/20 06:15 Hgb 9.4 g/dL (13.5-17.5) L 02/25/20 06:15 Hct 30.0 % (40.0-50.0) L 02/25/20 06:15 MCV 85.5 fL (80-95) 02/25/20 06:15 MCH 26.8 pg (27.0-33.0) L 02/25/20 06:15 MCHC 31.3 g/dL (32.0-36.0) L 02/25/20 06:15 RDW 17.9 % (11.8-14.1) H 02/25/20 06:15 Plt Count 178 x1000/uL (130-400) 02/25/20 06:15 MPV 10.4 fL (8.0-11.0) 02/25/20 06:15 Immature Gran % 0.2 % 02/24/20 06:00 Neutrophils % 77.6 02/24/20 06:00 Lymphocytes % 11.2 02/24/20 06:00 Monocytes % 9.3 02/24/20 06:00 Eosinophils % 1.5 02/24/20 06:00 Basophils % 0.2 02/24/20 06:00 Absolute Neutrophils 7.12 k/cumm (1.2-6.7) H 02/24/20 06:00 Absolute Lymphocytes 1.03 k/cumm (1.2-3.4) L 02/24/20 06:00 Absolute Monocytes 0.85 k/cumm (0.11-0.7) H 02/24/20 06:00 Absolute Eosinophils 0.14 k/cumm (0.0-0.7) 02/24/20 06:00 Absolute Basophils 0.02 k/cumm (0.0-0.2) 02/24/20 06:00 PT 11.4 sec (9.3-11.0) H 02/23/20 05:52 INR 1.1 (0.9-1.1) 02/23/20 05:52 APTT 25.6 sec (21.0-31.4) 02/22/20 20:32 Sodium 141 mmol/L (136-145) 02/25/20 06:15 Potassium 2.5 mmol/L (3.5-5.1) L* 02/25/20 06:15 Chloride 105 mmol/L (98-107) 02/25/20 06:15 Carbon Dioxide 30.6 mmol/L (21.0-32.0) 02/25/20 06:15 Anion Gap 5.4 mmol/L (3-11) 02/25/20 06:15 BUN 0 mg/dL (7-18) L 02/25/20 06:15 Creatinine 0.46 mg/dL (0.70-1.30) L 02/25/20 06:15 Estimated GFR/1.73 m2 >= 60.00 (mL/min/1.73m2) 02/25/20 06:15 Glucose 98 mg/dL (74-106) 02/25/20 06:15 Lactate 1.1 mmol/L (0.6-1.4) 02/24/20 08:05 Calcium 7.2 mg/dL (8.5-10.1) L 02/25/20 06:15 Phosphorus 3.3 mg/dL (2.6-4.7) 02/23/20 05:52 Magnesium 1.0 mg/dL (1.8-2.4) L 02/25/20 06:15 Iron 181 ug/dL (65-175) H 02/25/20 06:15 TIBC 182 ug/dL (250-450) L 02/25/20 06:15 Transferrin % Sat 99 % (20-55) H 02/25/20 06:15 Total Bilirubin 1.3 mg/dL (0.2-1.0) H 02/24/20 06:00 AST 35 U/L (15-37) 02/24/20 06:00 ALT 26 U/L (16-63) 02/24/20 06:00 Alkaline Phosphatase 44 U/L (46-116) L 02/24/20 06:00 Creatine Kinase 15 U/L (39-308) L 02/22/20 20:20 Troponin I < 0.05 ng/Ml (<0.06) 02/23/20 05:52 Total Protein 5.1 g/dL (6.4-8.2) L 02/24/20 06:00 Albumin 1.9 g/dL (3.4-5.0) L 02/24/20 06:00 Lipase 29 U/L (73-393) 02/23/20 05:52 Procalcitonin 0.5 ng/mL 02/22/20 20:20 Urine Color Yellow (Yellow) 02/23/20 14:00 Urine Clarity Clear (Clear) 02/23/20 14:00 Urine pH 6.5 (5-8) 02/23/20 14:00 Ur Specific [place] 1.020 (1.005-1.025) 02/23/20 14:00 Urine Protein Negative mg/dL (Negative) 02/23/20 14:00 Urine Ketones Negative mg/dL (Negative) 02/23/20 14:00 Urine Blood Trace-lysed (Negative) H 02/23/20 14:00 Urine Nitrite Negative (Negative) 02/23/20 14:00 Urine Bilirubin Negative (Negative) 02/23/20 14:00 Urine Urobilinogen 0.2 EU/dL (Up TO 0.2) 02/23/20 14:00 Ur Leukocyte Esterase Negative (Negative) 02/23/20 14:00 Urine RBC 5-10 HPF (0-2) H 02/23/20 14:00 Urine WBC 3-5 HPF (0-5) 02/23/20 14:00 Ur Epithelial Cells Rare HPF (Negative) 02/23/20 14:00 Urine Crystals Negative HPF (Negative) 02/23/20 14:00 Urine Bacteria Rare HPF (Negative) 02/23/20 14:00 Urine Casts Negative LPF (Negative) 02/23/20 14:00 Urine Mucus Negative (Negative) 02/23/20 14:00 Ur Culture Indicated? No 02/23/20 14:00 Urine Glucose Negative mg/dL (Negative) 02/23/20 14:00 Stool Campylobacter PCR Negative (Negative) 02/23/20 04:40 Stool Salmonella PCR Negative (Negative) 02/23/20 04:40 Stool Shigella PCR Negative (Negative) 02/23/20 04:40 Vancomycin Trough Cancelled 02/25/20 15:00 Urine Opiates Screen Positive (Negative) A 02/23/20 14:00 Urine Methadone Screen Negative (Negative) 02/23/20 14:00 Ur Barbiturates Screen Negative (Negative) 02/23/20 14:00 Ur Tricyclics Screen Negative (Negative) 02/23/20 14:00 Ur Amphetamines Screen Negative (Negative) 02/23/20 14:00 U Benzodiazepines Scrn Negative (Negative) 02/23/20 14:00 Urine Cocaine Screen Negative (Negative) 02/23/20 14:00 Ur THC Screen Positive (Negative) A 02/23/20 14:00 Ethyl Alcohol 97.5 mg/dL (<3) 02/22/20 20:20 Coronavirus (PCR) Negative (Negative) 02/23/20 03:42 Shiga Toxin (PCR) Negative (Negative) 02/23/20 04:40 Patient ABO/Rh A Negative 02/22/20 21:00 Antibody Screen Negative 02/22/20 21:00 Crossmatch See Detail 02/22/20 21:00
--- NOTE | 2020-02-25 12:44 | W.PM.PROGNOT ---
Date of Service Date of service: 02/25/20 Time of Service: 07:00 Assessment and Plan Assessment and plan (1) Erosive gastritis: Status: Acute Assessment and plan: Erosive gastritis on EGD. Still having black stools but not gross melena or blood. On PPI infusion which I am going to continue for at least another 24 hours. Clear liquid diet only. Monitor hemoglobin. (2) Acute GI bleeding: Status: Acute Assessment and plan: Clinically this seems to have stopped. Management as above. (3) Anemia, iron deficiency: Status: Acute Assessment and plan: Hemoglobin has drifted down slightly from yesterday. Continue to monitor. (4) Alcohol use disorder: Status: Acute Assessment and plan: Moderate withdrawal symptoms, continue to assess and treat with PRN lorazepam. (5) Right clavicle fracture: Status: Acute Assessment and plan: Minimally symptomatic from this. Management can be deferred to outpatient setting. (6) Hypomagnesemia: Status: Acute Assessment and plan: Still with low magnesium, IV supplementation and recheck tomorrow. (7) Acute hypokalemia: Status: Acute Assessment and plan: Continues to have low potassium, IV supplementation. Consider p.o. supplement once tolerating p.o. adequately. (8) COPD (chronic obstructive pulmonary disease): Status: Chronic Assessment and plan: Minimally symptomatic. Continue Spiriva on schedule and PRN albuterol Qualifiers: COPD type: emphysema Emphysema type: panlobular Qualified Code(s): J43.1 - Panlobular emphysema (9) Sepsis: Status: Suspected Assessment and plan: Sepsis symptoms present on admission have resolved. Mild tachycardia still probably from his anemia. Blood cultures -40 8+ hours. No source of infection. Perhaps all due to GI bleed with hypovolemic compensated shock? Blood pressure stable off pressors. I am stopping antibiotics. Monitor temperature and exam for any signs of infection. Qualifiers: Sepsis type: sepsis due to unspecified organism Sepsis acute organ dysfunction status: with acute organ dysfunction Severe sepsis acute organ dysfunction type: acute renal failure Acute renal failure type: unspecified Subjective Subjective Interval history since last seen: No hematemesis. Black heme positive stool but no bloody stool or magdiel melena. Denies abdominal pain. Does not feel particularly hungry. Has been a bit confused, knows he is in the hospital but not clear why. Denies shortness of breath. Has not had any productive cough. Results of yesterday's EGD noted. Gastritis. Biopsies done and pending. Continues on PPI infusion. Moderate alcohol withdrawal symptoms for which he has gotten a few doses of PRN lorazepam. Exam Narrative Exam Narrative: Disheveled, lying salon twice in bed with one leg over the railing stated he needed to use the bathroom. Easily repositioned and cooperative. Sinus rhythm, rate in the high 90s on telemetry. Blood pressures 100s over 60s SaO2 93% on 1 to 2 L. (Nasal cannula not in his nose, probably just room air). IJ line on the right without swelling or redness around the entry site. Lungs with diminished breath sounds at both bases and some faint crackles at the left base. Regular heart rhythm no murmur S3 or S4. Bowel sounds are present although somewhat diminished, abdomen is not distended or tender. Strong pulses distally. Moves all extremities purposefully and symmetrically. Slight intention tremor. Objective Objective Clinical Data: Abnormal lab results 02/24/20 02/24/20 02/24/20 Range/Units 16:00 20:12 20:12 RBC (4.50-6.00) m/cumm Hgb 9.8 L (13.5-17.5) g/dL Hct 31.3 L (40.0-50.0) % MCH (27.0-33.0) pg MCHC (32.0-36.0) g/dL RDW (11.8-14.1) % Potassium 2.6 L* 2.8 L* (3.5-5.1) mmol/L BUN (7-18) mg/dL Creatinine (0.70-1.30) mg/dL Calcium (8.5-10.1) mg/dL Magnesium (1.8-2.4) mg/dL Iron (65-175) ug/dL TIBC (250-450) ug/dL Transferrin % Sat (20-55) % 02/25/20 02/25/20 02/25/20 Range/Units 06:15 06:15 06:15 RBC 3.51 L (4.50-6.00) m/cumm Hgb 9.4 L (13.5-17.5) g/dL Hct 30.0 L (40.0-50.0) % MCH 26.8 L (27.0-33.0) pg MCHC 31.3 L (32.0-36.0) g/dL RDW 17.9 H (11.8-14.1) % Potassium 2.5 L* (3.5-5.1) mmol/L BUN 0 L (7-18) mg/dL Creatinine 0.46 L (0.70-1.30) mg/dL Calcium 7.2 L (8.5-10.1) mg/dL Magnesium 1.0 L (1.8-2.4) mg/dL Iron 181 H (65-175) ug/dL TIBC 182 L (250-450) ug/dL Transferrin % Sat 99 H (20-55) % Vital Signs Temperature 37.0 C 02/25/20 08:00 Temperature Source Temporal Artery Scan 02/25/20 08:00 Pulse 99 H 02/25/20 10:02 Pulse 101 H 02/25/20 10:02 Respiratory Rate 25 H 02/25/20 10:02 Respiratory Effort Non-Labored 02/25/20 08:00 Respiratory Depth Shallow 02/25/20 08:00 Respiratory Pattern Normal 02/25/20 08:00 Blood Pressure 103/64 02/25/20 10:02 Blood Pressure Mean 72 02/25/20 10:02 Blood Pressure Position Supine 02/25/20 08:00 Pulse Oximetry 93 L 02/25/20 10:38 Respiratory End-tidal CO2 31 02/24/20 13:50 Oxygen Delivery Method Room Air 02/25/20 10:38 Oxygen Flow Rate 0 02/25/20 10:38 Fraction of Inspired Oxygen (FIO2) 40 02/24/20 13:50 Pain Level 0 02/25/20 08:00 Comment 02/23/20 14:30 Intake & Output 02/24/20 02/25/20 02/25/20 23:59 11:59 23:59 Intake Total 2373.667 / 3973.667 2002.333 / 210.333 100 / 2103.333 Output Total 2300 / 5950 3430 / 3430 Balance 73.667 / -1976.333 -1426.667 / -1326.667 100 / -1326.667 Weight 54.431 kg Intake: IV 2373.667 / 3973.667 1973.333 / 2072.333 100 / 2072.333 Oral Output: Urine 2300 / 5950 3430 / 3430 Other: Urine Color Pale Yellow Yellow Urine Appearance Cloudy Clear Comment Palacios catheter. Palacios catheter intact and draining clear yellow urine. Stool Occult Blood Positive Stool Size Small Stool Characteristics Soft Black Laboratory Results WBC 6.93 k/cumm (4.4-10.8) 02/25/20 06:15 RBC 3.51 m/cumm (4.50-6.00) L 02/25/20 06:15 Hgb 9.4 g/dL (13.5-17.5) L 02/25/20 06:15 Hct 30.0 % (40.0-50.0) L 02/25/20 06:15 MCV 85.5 fL (80-95) 02/25/20 06:15 MCH 26.8 pg (27.0-33.0) L 02/25/20 06:15 MCHC 31.3 g/dL (32.0-36.0) L 02/25/20 06:15 RDW 17.9 % (11.8-14.1) H 02/25/20 06:15 Plt Count 178 x1000/uL (130-400) 02/25/20 06:15 MPV 10.4 fL (8.0-11.0) 02/25/20 06:15 Immature Gran % 0.2 % 02/24/20 06:00 Neutrophils % 77.6 02/24/20 06:00 Lymphocytes % 11.2 02/24/20 06:00 Monocytes % 9.3 02/24/20 06:00 Eosinophils % 1.5 02/24/20 06:00 Basophils % 0.2 02/24/20 06:00 Absolute Neutrophils 7.12 k/cumm (1.2-6.7) H 02/24/20 06:00 Absolute Lymphocytes 1.03 k/cumm (1.2-3.4) L 02/24/20 06:00 Absolute Monocytes 0.85 k/cumm (0.11-0.7) H 02/24/20 06:00 Absolute Eosinophils 0.14 k/cumm (0.0-0.7) 02/24/20 06:00 Absolute Basophils 0.02 k/cumm (0.0-0.2) 02/24/20 06:00 PT 11.4 sec (9.3-11.0) H 02/23/20 05:52 INR 1.1 (0.9-1.1) 02/23/20 05:52 APTT 25.6 sec (21.0-31.4) 02/22/20 20:32 Sodium 141 mmol/L (136-145) 02/25/20 06:15 Potassium 2.5 mmol/L (3.5-5.1) L* 02/25/20 06:15 Chloride 105 mmol/L (98-107) 02/25/20 06:15 Carbon Dioxide 30.6 mmol/L (21.0-32.0) 02/25/20 06:15 Anion Gap 5.4 mmol/L (3-11) 02/25/20 06:15 BUN 0 mg/dL (7-18) L 02/25/20 06:15 Creatinine 0.46 mg/dL (0.70-1.30) L 02/25/20 06:15 Estimated GFR/1.73 m2 >= 60.00 (mL/min/1.73m2) 02/25/20 06:15 Glucose 98 mg/dL (74-106) 02/25/20 06:15 Lactate 1.1 mmol/L (0.6-1.4) 02/24/20 08:05 Calcium 7.2 mg/dL (8.5-10.1) L 02/25/20 06:15 Phosphorus 3.3 mg/dL (2.6-4.7) 02/23/20 05:52 Magnesium 1.0 mg/dL (1.8-2.4) L 02/25/20 06:15 Iron 181 ug/dL (65-175) H 02/25/20 06:15 TIBC 182 ug/dL (250-450) L 02/25/20 06:15 Transferrin % Sat 99 % (20-55) H 02/25/20 06:15 Total Bilirubin 1.3 mg/dL (0.2-1.0) H 02/24/20 06:00 AST 35 U/L (15-37) 02/24/20 06:00 ALT 26 U/L (16-63) 02/24/20 06:00 Alkaline Phosphatase 44 U/L (46-116) L 02/24/20 06:00 Creatine Kinase 15 U/L (39-308) L 02/22/20 20:20 Troponin I < 0.05 ng/Ml (<0.06) 02/23/20 05:52 Total Protein 5.1 g/dL (6.4-8.2) L 02/24/20 06:00 Albumin 1.9 g/dL (3.4-5.0) L 02/24/20 06:00 Lipase 29 U/L (73-393) 02/23/20 05:52 Procalcitonin 0.5 ng/mL 02/22/20 20:20 Urine Color Yellow (Yellow) 02/23/20 14:00 Urine Clarity Clear (Clear) 02/23/20 14:00 Urine pH 6.5 (5-8) 02/23/20 14:00 Ur Specific [place] 1.020 (1.005-1.025) 02/23/20 14:00 Urine Protein Negative mg/dL (Negative) 02/23/20 14:00 Urine Ketones Negative mg/dL (Negative) 02/23/20 14:00 Urine Blood Trace-lysed (Negative) H 02/23/20 14:00 Urine Nitrite Negative (Negative) 02/23/20 14:00 Urine Bilirubin Negative (Negative) 02/23/20 14:00 Urine Urobilinogen 0.2 EU/dL (Up TO 0.2) 02/23/20 14:00 Ur Leukocyte Esterase Negative (Negative) 02/23/20 14:00 Urine RBC 5-10 HPF (0-2) H 02/23/20 14:00 Urine WBC 3-5 HPF (0-5) 02/23/20 14:00 Ur Epithelial Cells Rare HPF (Negative) 02/23/20 14:00 Urine Crystals Negative HPF (Negative) 02/23/20 14:00 Urine Bacteria Rare HPF (Negative) 02/23/20 14:00 Urine Casts Negative LPF (Negative) 02/23/20 14:00 Urine Mucus Negative (Negative) 02/23/20 14:00 Ur Culture Indicated? No 02/23/20 14:00 Urine Glucose Negative mg/dL (Negative) 02/23/20 14:00 Stool Campylobacter PCR Negative (Negative) 02/23/20 04:40 Stool Salmonella PCR Negative (Negative) 02/23/20 04:40 Stool Shigella PCR Negative (Negative) 02/23/20 04:40 Vancomycin Trough Cancelled 02/25/20 15:00 Urine Opiates Screen Positive (Negative) A 02/23/20 14:00 Urine Methadone Screen Negative (Negative) 02/23/20 14:00 Ur Barbiturates Screen Negative (Negative) 02/23/20 14:00 Ur Tricyclics Screen Negative (Negative) 02/23/20 14:00 Ur Amphetamines Screen Negative (Negative) 02/23/20 14:00 U Benzodiazepines Scrn Negative (Negative) 02/23/20 14:00 Urine Cocaine Screen Negative (Negative) 02/23/20 14:00 Ur THC Screen Positive (Negative) A 02/23/20 14:00 Ethyl Alcohol 97.5 mg/dL (<3) 02/22/20 20:20 Coronavirus (PCR) Negative (Negative) 02/23/20 03:42 Shiga Toxin (PCR) Negative (Negative) 02/23/20 04:40 Patient ABO/Rh A Negative 02/22/20 21:00 Antibody Screen Negative 02/22/20 21:00 Crossmatch See Detail 02/22/20 21:00
[2020-02-25 16:38] LABS: Potassium 3.2 mmol/L (3.5-5.1)
[2020-02-25] MEDS: Potassium Chloride 20 MEQ TABCR 40 MEQ PO (17:43)
[2020-02-26] VITALS (38 sets, daily range): BP systolic 92–114; BP diastolic 56–80; PULSE 77–135; RESP 16–39; TEMP 36.4–36.8; O2SAT 85–98
[2020-02-26] MEDS: LORazepam 2 MG/ML VIAL IVP ×5 (00:23→23:49)
[2020-02-26] MEDS: Normal Saline Flush 10 ML SYR IVP ×5 (00:24→23:48)
[2020-02-26] MEDS: PANTOPRAZOLE 80 MG in Normal Saline 100 ML 10 MG IV (03:56)
[2020-02-26] MEDS: Sucralfate 1 GM TAB PO ×4 (03:59→21:05)
[2020-02-26] MEDS: POTASSIUM CHLORIDE/D5-0.9%NACL 1,000 ML 100 MEQ IV (04:12)
[2020-02-26 06:38] LABS: HCT 30.1 % (40.0-50.0); HGB 9.4 g/dL (13.5-17.5); Mean Corp. HGB Concentration 31.2 g/dL (32.0-36.0); Mean Corpuscular Hemoglobin 27.2 pg (27.0-33.0); Mean Platelet Volume 9.8 fL (8.0-11.0); Platelet Count 205 x1000/uL (130-400); RBC 3.46 m/cumm (4.50-6.00); RBC Distribution Width 18.9 % (11.8-14.1); White Blood Cell Count 5.33 k/cumm (4.4-10.8)
[2020-02-26 06:47] LABS: Anion Gap 4.9 mmol/L (3-11); BUN 2 mg/dL (7-18); CO2 27.1 mmol/L (21.0-32.0); CREATININE 0.44 mg/dL (0.70-1.30); Calcium 7.6 mg/dL (8.5-10.1); Chloride 109 mmol/L (98-107); Glucose 101 mg/dL (74-106); Magnesium 1.6 mg/dL (1.8-2.4); Potassium 3.6 mmol/L (3.5-5.1); Sodium 141 mmol/L (136-145)
[2020-02-26] MEDS: Tiotropium Bromide-Respimat 10 PUFF INH IH (07:42)
[2020-02-26] MEDS: Pantoprazole 40 MG TABCR PO ×2 (08:44→21:05)
[2020-02-26] MEDS: MAGNESIUM SULFATE 1 GM/100 ML BAG IVPB (08:44)
[2020-02-26] MEDS: POTASSIUM CHLORIDE/D5-0.45NACL 1,000 ML 100 MEQ IV ×2 (08:45→23:55)
[2020-02-26] MEDS: MULTIVITAMIN 10 ML, THIAMINE 100 MG, FOLIC ACID 1 MG in DEXTROSE 5%-0.45% SALINE 1,000 ML 150 ML IV (09:40)
--- NOTE | 2020-02-26 10:22 | IN_ITS ---
Date of service: 02/26/20 Time of Service: 11:30 PT Notes Visit Reasons: GI BLEED,SEPSIS,R/O COVID 19 Inpatient Physical Therapy Evaluation Date: February 26, 2020 Referring Doctor: Benny Arvizu PT Orders: PT CONSULT: extended stay weakness Precautions: Falls, Standard, Right clavicle fracture Patient Profile/Admitting Diagnosis: Alton is a 60-year-old male with a history of alcohol abuse, hepatitis, COPD, fatty liver, Hopson's esophagitis, previous GI bleeding presented to the emergency department via EMS with acute onset of black tarry stools with diarrhea and generalized weakness with fever. COVID 19 tested -negatvie results. Admitted secondary to Acute GI bleed, fever and hypotension. PMHX: Medical History Abnormal abdominal CT scan (Inactive) Alcohol induced fatty liver (Acute) Alcohol use disorder (Acute) Anemia, iron deficiency (Acute) Arthritis (Acute) Atherosclerosis of abdominal aorta (Acute) Hopson's esophagus determined by endoscopy (Acute) Barretts esophagus (Acute) Bone spur of foot (Acute) Chronic iron deficiency anemia (Acute) COPD (chronic obstructive pulmonary disease) (Chronic) DDD (degenerative disc disease) (Acute) Dehydration (Resolved) Dehydration, mild (Acute) Depression (Chronic) Depression with anxiety (Acute) Diverticulosis (Acute) Erosive gastritis (Acute) Erosive gastritis (Acute) Esophageal reflux (Acute) Essential tremor (Acute) Fatty liver (Acute) Gastroenteritis (Resolved) Hematemesis (Acute) Hepatitis A (Acute) Hyperlipemia (Acute) Hypokalemia due to excessive gastrointestinal loss of potassium (Acute) Hypomagnesemia (Acute) Insomnia (Acute) Left knee pain (Acute) Low back pain (Acute) Nonspecific ST-T wave electrocardiographic changes (Acute) Osteoarthritis (arthritis due to wear and tear of joints) (Chronic) Rectal polyp (Acute) Smoker unmotivated to quit (Resolved) Tetrahydrocannabinol (THC) use disorder, moderate, dependence (Acute) Thrombocytopenia (Chronic) Tobacco use disorder (Acute) Transaminitis (Acute) Urinary incontinence (Acute) Urinary urgency (Acute 08/14/17) Surgical History History of foot surgery (Acute) Hx of colonoscopy (Chronic) Hx of esophagogastroduodenoscopy (Chronic) Social History/Home Situation: Alton lives alone in [facility]. He is independent with ADLs, and transportation. He is currently unemployed and applying for disability, he is establishing care with [facility] to treat his mental health. 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 He has been out of work for the past 3 years and is applying for disability related to his mental health and physical health. Current Functional Limitations: He notes limited ambulation tolerance. He notes the shaking is getting worse. Equipment Owned/DME: None Subjective: Alton reports that he is feeling better. Wishes the shaking would stop. Remains cold all the time. Objective: General Observation: IV access, cathedar, resting tremors Mental Status: Alert and oriented x3 Pain: Notes mild pain into his low back, stiffness into his right knee ROM: Right Upper Extremity: Shoulder N/T. Demonstrates full elbow, forearm and wrist mobility. Left Upper Extremity: Shoulder flexion 120 degrees, scaption 100 degrees, IR to side, ER to 30 degrees. 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 Ambulated from bed to chair with minimal difficulty. Balance: Static Sitting: Normal Dynamic Sitting: Good Static Standing: Fair Dynamic Standing: Fair Special Tests: Mobility Limitations Standardized Measure [facility] AM-PAC 6 clicks Basic Mobility Inpatient Short Form: Raw Score: 18 CMS Score: 46.58% Informed Consent/Education: Patient instructed in purpose of PT consult and plan of care. Assessment: Patient is a 60 year old male referred to physical therapy services with the diagnosis of acute GI bleed,fever and hypotension. Patient presents with clinical signs and symptoms consistent with diagnosis presenting with generalized muscle weakness, decreased activity tolerance, mobility and ADL impairment.Referral to physical therapy was made in order to address functional mobility decline to facilitate safe discharge planning to home when medically cleared. Patient presents with clinical signs and symptoms consistent with current/admitting diagnoses that have resulted to mobility limitations, gait instability, generalized weakness, and impairment of motor control as demonstrated by the following impairment level findings: 1. Decreased strength to B LE major muscle groups 2. Impaired standing balance 3. Impaired activity tolerance 4. Fractured right clavicle Impairments are contributing to the following functional limitations: 1. Increased dependence with transfers 2. Inability to safely ambulate without assistive device and physical assistance 3. Increase completion time for mobility ADL performance 4. Increased fall risk Patient is assessed as a Moderate 88274 complexity based on the following: History: As above Examination: As above Presentation: Evolving Decision Making: Moderate Goals: Goals X1 week 1. Supine-Sit I 2. Sit-Supine I 3. Sit-Stand I 4. Stand-Sit I 5. Bed-Chair I 6. Chair-Bed I 7. Gait I with least restrictive assistive device 200 ft or greater 8. Stairs I with use of railing 9. Independent with home exercise program 10. Dynamic Balance good Plan of Care/Treatment Plan: 1-2x/day, 7 days/week x 1 week. Plan of care has been reviewed with the DIRECT MARKETING ANALYST providing the service under Physical Therapy direction. Initiate Physical Therapy intervention for strengthening, bed mobility, transfers, gait, stairs, balance training, use of assistive device. DISCHARGE RECOMMENDATIONS: Return home once medically cleared TREATMENT CODE/TIME: 76572, 30 minutes 11:30 AM Thank you for this referral. Beckie Schaffer, MPT [facility]
[2020-02-26] MEDS: Budesonide/Formoterol 160/4.5 6 GM 60 PUFF INH IH ×2 (11:10→21:06)
--- NOTE | 2020-02-26 12:08 | W.PM.PROGNOT ---
Date of Service Date of service: 02/26/20 Time of Service: 12:08 Assessment and Plan Assessment and plan (1) Acute GI bleeding: Status: Acute Assessment and plan: A\\ POD # 2 s/p EGD and cautery of 3 bleeders. He has been on IV protonix BID for last few days. Transitioned today to po. He denies abdominal pain, Nausea or vomiting. He has tolerated clear liquids. He is hungry P\\ Advance his diet OK to discharge from a surgical stand point Follow up with PCP. NO Follow up with surgery needed We will sign off. Please call us if we are needed again Subjective Subjective Interval history since last seen: Mr. wAad is sitting in a chair. He is shaking, his baseline. He denies abdominal pain, nausea or vomiting. Per nursing staff he has had several BM's. Occult positive but no longer black. His Hgb and Hct have been stable. Exam GI Palpation: soft and nontender Objective Objective Clinical Data: Abnormal lab results 02/25/20 02/26/20 02/26/20 Range/Units 16:05 06:20 06:20 RBC 3.46 L (4.50-6.00) m/cumm Hgb 9.4 L (13.5-17.5) g/dL Hct 30.1 L (40.0-50.0) % MCHC 31.2 L (32.0-36.0) g/dL RDW 18.9 H (11.8-14.1) % Potassium 3.2 L (3.5-5.1) mmol/L Chloride 109 H (98-107) mmol/L BUN 2 L (7-18) mg/dL Creatinine 0.44 L (0.70-1.30) mg/dL Calcium 7.6 L (8.5-10.1) mg/dL Magnesium 1.6 L (1.8-2.4) mg/dL Vital Signs Temperature 97.5 F L 02/26/20 08:40 Temperature Source Temporal Artery Scan 02/26/20 08:40 Pulse 77 02/26/20 08:00 Pulse 135 H 02/26/20 09:30 Respiratory Rate 20 02/26/20 09:30 Respiratory Effort Non-Labored 02/26/20 08:40 Respiratory Depth Normal 02/26/20 08:40 Respiratory Pattern Normal 02/26/20 08:40 Blood Pressure 94/65 L 02/26/20 08:00 Blood Pressure Mean 72 02/26/20 08:00 Blood Pressure Position Supine 02/26/20 00:00 Pulse Oximetry 94 L 02/26/20 07:00 Respiratory End-tidal CO2 31 02/24/20 13:50 Oxygen Delivery Method Nasal Cannula 02/26/20 04:02 Oxygen Flow Rate 2.5 02/26/20 04:02 Fraction of Inspired Oxygen (FIO2) 40 02/24/20 13:50 Pain Level 0 02/26/20 08:40 Comment 02/23/20 14:30 Intake & Output 02/25/20 02/26/20 02/26/20 23:59 11:59 23:59 Intake Total 2656.3 / 4759.633 904.000 / 904.000 Output Total 2275 / 5705 500 / 500 Balance 381.3 / -945.367 404.000 / 404.000 Weight 136 lb 3.931 oz Intake: IV 2406.3 / 4379.633 804.000 / 804.000 Oral 250 / 380 100 / 100 Output: Urine 2275 / 5705 500 / 500 Other: Urine Color Yellow Dark Lou Urine Appearance Cloudy Comment F. Obed Aceey in place and draining Stool Occult Blood Positive Stool Size Large Stool Characteristics Soft Liquid Brown Laboratory Results WBC 5.33 k/cumm (4.4-10.8) 02/26/20 06:20 RBC 3.46 m/cumm (4.50-6.00) L 02/26/20 06:20 Hgb 9.4 g/dL (13.5-17.5) L 02/26/20 06:20 Hct 30.1 % (40.0-50.0) L 02/26/20 06:20 MCV 87.0 fL (80-95) 02/26/20 06:20 MCH 27.2 pg (27.0-33.0) 02/26/20 06:20 MCHC 31.2 g/dL (32.0-36.0) L 02/26/20 06:20 RDW 18.9 % (11.8-14.1) H 02/26/20 06:20 Plt Count 205 x1000/uL (130-400) 02/26/20 06:20 MPV 9.8 fL (8.0-11.0) 02/26/20 06:20 Immature Gran % 0.2 % 02/24/20 06:00 Neutrophils % 77.6 02/24/20 06:00 Lymphocytes % 11.2 02/24/20 06:00 Monocytes % 9.3 02/24/20 06:00 Eosinophils % 1.5 02/24/20 06:00 Basophils % 0.2 02/24/20 06:00 Absolute Neutrophils 7.12 k/cumm (1.2-6.7) H 02/24/20 06:00 Absolute Lymphocytes 1.03 k/cumm (1.2-3.4) L 02/24/20 06:00 Absolute Monocytes 0.85 k/cumm (0.11-0.7) H 02/24/20 06:00 Absolute Eosinophils 0.14 k/cumm (0.0-0.7) 02/24/20 06:00 Absolute Basophils 0.02 k/cumm (0.0-0.2) 02/24/20 06:00 PT 11.4 sec (9.3-11.0) H 02/23/20 05:52 INR 1.1 (0.9-1.1) 02/23/20 05:52 APTT 25.6 sec (21.0-31.4) 02/22/20 20:32 Sodium 141 mmol/L (136-145) 02/26/20 06:20 Potassium 3.6 mmol/L (3.5-5.1) 02/26/20 06:20 Chloride 109 mmol/L (98-107) H 02/26/20 06:20 Carbon Dioxide 27.1 mmol/L (21.0-32.0) 02/26/20 06:20 Anion Gap 4.9 mmol/L (3-11) 02/26/20 06:20 BUN 2 mg/dL (7-18) L 02/26/20 06:20 Creatinine 0.44 mg/dL (0.70-1.30) L 02/26/20 06:20 Estimated GFR/1.73 m2 >= 60.00 (mL/min/1.73m2) 02/26/20 06:20 Glucose 101 mg/dL (74-106) 02/26/20 06:20 Lactate 1.1 mmol/L (0.6-1.4) 02/24/20 08:05 Calcium 7.6 mg/dL (8.5-10.1) L 02/26/20 06:20 Phosphorus 3.3 mg/dL (2.6-4.7) 02/23/20 05:52 Magnesium 1.6 mg/dL (1.8-2.4) L 02/26/20 06:20 Iron 181 ug/dL (65-175) H 02/25/20 06:15 TIBC 182 ug/dL (250-450) L 02/25/20 06:15 Transferrin % Sat 99 % (20-55) H 02/25/20 06:15 Total Bilirubin 1.3 mg/dL (0.2-1.0) H 02/24/20 06:00 AST 35 U/L (15-37) 02/24/20 06:00 ALT 26 U/L (16-63) 02/24/20 06:00 Alkaline Phosphatase 44 U/L (46-116) L 02/24/20 06:00 Creatine Kinase 15 U/L (39-308) L 02/22/20 20:20 Troponin I < 0.05 ng/Ml (<0.06) 02/23/20 05:52 Total Protein 5.1 g/dL (6.4-8.2) L 02/24/20 06:00 Albumin 1.9 g/dL (3.4-5.0) L 02/24/20 06:00 Lipase 29 U/L (73-393) 02/23/20 05:52 Procalcitonin 0.5 ng/mL 02/22/20 20:20 Urine Color Yellow (Yellow) 02/23/20 14:00 Urine Clarity Clear (Clear) 02/23/20 14:00 Urine pH 6.5 (5-8) 02/23/20 14:00 Ur Specific [place] 1.020 (1.005-1.025) 02/23/20 14:00 Urine Protein Negative mg/dL (Negative) 02/23/20 14:00 Urine Ketones Negative mg/dL (Negative) 02/23/20 14:00 Urine Blood Trace-lysed (Negative) H 02/23/20 14:00 Urine Nitrite Negative (Negative) 02/23/20 14:00 Urine Bilirubin Negative (Negative) 02/23/20 14:00 Urine Urobilinogen 0.2 EU/dL (Up TO 0.2) 02/23/20 14:00 Ur Leukocyte Esterase Negative (Negative) 02/23/20 14:00 Urine RBC 5-10 HPF (0-2) H 02/23/20 14:00 Urine WBC 3-5 HPF (0-5) 02/23/20 14:00 Ur Epithelial Cells Rare HPF (Negative) 02/23/20 14:00 Urine Crystals Negative HPF (Negative) 02/23/20 14:00 Urine Bacteria Rare HPF (Negative) 02/23/20 14:00 Urine Casts Negative LPF (Negative) 02/23/20 14:00 Urine Mucus Negative (Negative) 02/23/20 14:00 Ur Culture Indicated? No 02/23/20 14:00 Urine Glucose Negative mg/dL (Negative) 02/23/20 14:00 Stool Campylobacter PCR Negative (Negative) 02/23/20 04:40 Stool Salmonella PCR Negative (Negative) 02/23/20 04:40 Stool Shigella PCR Negative (Negative) 02/23/20 04:40 Vancomycin Trough Cancelled 02/25/20 15:00 Urine Opiates Screen Positive (Negative) A 02/23/20 14:00 Urine Methadone Screen Negative (Negative) 02/23/20 14:00 Ur Barbiturates Screen Negative (Negative) 02/23/20 14:00 Ur Tricyclics Screen Negative (Negative) 02/23/20 14:00 Ur Amphetamines Screen Negative (Negative) 02/23/20 14:00 U Benzodiazepines Scrn Negative (Negative) 02/23/20 14:00 Urine Cocaine Screen Negative (Negative) 02/23/20 14:00 Ur THC Screen Positive (Negative) A 02/23/20 14:00 Ethyl Alcohol 97.5 mg/dL (<3) 02/22/20 20:20 Coronavirus (PCR) Negative (Negative) 02/23/20 03:42 Shiga Toxin (PCR) Negative (Negative) 02/23/20 04:40 Patient ABO/Rh A Negative 02/22/20 21:00 Antibody Screen Negative 02/22/20 21:00 Crossmatch See Detail 02/22/20 21:00
--- NOTE | 2020-02-26 13:17 | W.PM.PROGNOT ---
Date of Service Date of service: 02/26/20 Time of Service: 07:15 Assessment and Plan Assessment and plan (1) Erosive gastritis: Status: Acute Assessment and plan: No grossly bloody or melanotic stool, which are loose. No abdominal pain. Diet advancement per surgical team. Switch IV PPI to oral. Continue to monitor hemoglobin. (2) Acute GI bleeding: Status: Acute Assessment and plan: Clinically this seems to have stopped. Management as above. (3) Anemia, iron deficiency: Status: Acute Assessment and plan: Hemoglobin has been stable in the past 24 hours. Continue to monitor. (4) Alcohol use disorder: Status: Acute Assessment and plan: Mild withdrawal symptoms, continue to assess and treat with PRN lorazepam. (5) Right clavicle fracture: Status: Acute Assessment and plan: Minimally symptomatic from this. Management can be deferred to outpatient setting. (6) Hypomagnesemia: Status: Acute Assessment and plan: Still with low magnesium, IV supplementation again today. (7) Acute hypokalemia: Status: Resolved Assessment and plan: Better. Monitor episodically. (8) COPD (chronic obstructive pulmonary disease): Status: Chronic Assessment and plan: Does not complain of shortness of breath but has some increased coarse wheezing on exam. Occasional oxygen requirement. I am adding Symbicort to his current inhalers. Qualifiers: COPD type: emphysema Emphysema type: panlobular Qualified Code(s): J43.1 - Panlobular emphysema (9) Sepsis: Status: Ruled-out Assessment and plan: Has not manifested any sepsis symptoms off antibiotics. I think we can attribute his presenting signs and labs to his profound anemia plus minus alcohol. Qualifiers: Sepsis type: sepsis due to unspecified organism Sepsis acute organ dysfunction status: with acute organ dysfunction Severe sepsis acute organ dysfunction type: acute renal failure Acute renal failure type: unspecified Subjective Subjective Interval history since last seen: More alert this morning. Oxygen requirement off and on overnight. Blood pressures soft but stable. Main complaint is hunger and wanting to eat solid foods. Denies any abdominal pain. Denies feeling short of breath but has had a bit more wheeze. Mild nonproductive cough. States he always has a tremor, not worse now than it has been in the past. Discussion on medical assisted therapy for alcohol abuse and he does not show any interest in trying any medication. Noncommittal to suggestions of outpatient treatment. Exam Narrative Exam Narrative: Awake cooperative and in no apparent physical or emotional distress. SaO2 on room air 91 to 93%. No JVD. Lungs coarse wheezing through all lung [place] mainly expiratory. Regular heart rhythm without S3-S4 murmur. Normal bowel sounds with no abdominal tenderness. Good pulses in the feet. No pitting edema. Mild intention tremor. Sits up unassisted. No ataxia. Knows where he is why and the date. Objective Objective Clinical Data: Abnormal lab results 02/25/20 02/26/20 02/26/20 Range/Units 16:05 06:20 06:20 RBC 3.46 L (4.50-6.00) m/cumm Hgb 9.4 L (13.5-17.5) g/dL Hct 30.1 L (40.0-50.0) % MCHC 31.2 L (32.0-36.0) g/dL RDW 18.9 H (11.8-14.1) % Potassium 3.2 L (3.5-5.1) mmol/L Chloride 109 H (98-107) mmol/L BUN 2 L (7-18) mg/dL Creatinine 0.44 L (0.70-1.30) mg/dL Calcium 7.6 L (8.5-10.1) mg/dL Magnesium 1.6 L (1.8-2.4) mg/dL Vital Signs Temperature 36.7 C 02/26/20 12:13 Temperature Source Temporal Artery Scan 02/26/20 12:13 Pulse 107 H 02/26/20 12:13 Pulse 135 H 02/26/20 09:30 Respiratory Rate 18 02/26/20 12:13 Respiratory Effort Non-Labored 02/26/20 08:40 Respiratory Depth Normal 02/26/20 08:40 Respiratory Pattern Normal 02/26/20 08:40 Blood Pressure 92/66 L 02/26/20 12:13 Blood Pressure Mean 72 02/26/20 08:00 Blood Pressure Position Supine 02/26/20 00:00 Pulse Oximetry 91 L 02/26/20 12:13 Respiratory End-tidal CO2 31 02/24/20 13:50 Oxygen Delivery Method Room Air 02/26/20 12:13 Oxygen Flow Rate 0 02/26/20 12:13 Fraction of Inspired Oxygen (FIO2) 40 02/24/20 13:50 Pain Level 0 02/26/20 12:13 Comment 02/23/20 14:30 Intake & Output 02/25/20 02/26/20 02/26/20 23:59 11:59 23:59 Intake Total 2656.3 / 4759.633 904.000 / 1004.000 100 / 1004.000 Output Total 2275 / 5705 500 / 500 Balance 381.3 / -945.367 404.000 / 504.000 100 / 504.000 Weight 61.8 kg Intake: IV 2406.3 / 4379.633 804.000 / 904.000 100 / 904.000 Oral 250 / 380 100 / 100 Output: Urine 2275 / 5705 500 / 500 Other: Urine Color Yellow Dark Lou Urine Appearance Cloudy Comment FMalik Aceey in place and draining Stool Occult Blood Positive Stool Size Large Stool Characteristics Soft Liquid Brown Laboratory Results WBC 5.33 k/cumm (4.4-10.8) 02/26/20 06:20 RBC 3.46 m/cumm (4.50-6.00) L 02/26/20 06:20 Hgb 9.4 g/dL (13.5-17.5) L 02/26/20 06:20 Hct 30.1 % (40.0-50.0) L 02/26/20 06:20 MCV 87.0 fL (80-95) 02/26/20 06:20 MCH 27.2 pg (27.0-33.0) 02/26/20 06:20 MCHC 31.2 g/dL (32.0-36.0) L 02/26/20 06:20 RDW 18.9 % (11.8-14.1) H 02/26/20 06:20 Plt Count 205 x1000/uL (130-400) 02/26/20 06:20 MPV 9.8 fL (8.0-11.0) 02/26/20 06:20 Immature Gran % 0.2 % 02/24/20 06:00 Neutrophils % 77.6 02/24/20 06:00 Lymphocytes % 11.2 02/24/20 06:00 Monocytes % 9.3 02/24/20 06:00 Eosinophils % 1.5 02/24/20 06:00 Basophils % 0.2 02/24/20 06:00 Absolute Neutrophils 7.12 k/cumm (1.2-6.7) H 02/24/20 06:00 Absolute Lymphocytes 1.03 k/cumm (1.2-3.4) L 02/24/20 06:00 Absolute Monocytes 0.85 k/cumm (0.11-0.7) H 02/24/20 06:00 Absolute Eosinophils 0.14 k/cumm (0.0-0.7) 02/24/20 06:00 Absolute Basophils 0.02 k/cumm (0.0-0.2) 02/24/20 06:00 PT 11.4 sec (9.3-11.0) H 02/23/20 05:52 INR 1.1 (0.9-1.1) 02/23/20 05:52 APTT 25.6 sec (21.0-31.4) 02/22/20 20:32 Sodium 141 mmol/L (136-145) 02/26/20 06:20 Potassium 3.6 mmol/L (3.5-5.1) 02/26/20 06:20 Chloride 109 mmol/L (98-107) H 02/26/20 06:20 Carbon Dioxide 27.1 mmol/L (21.0-32.0) 02/26/20 06:20 Anion Gap 4.9 mmol/L (3-11) 02/26/20 06:20 BUN 2 mg/dL (7-18) L 02/26/20 06:20 Creatinine 0.44 mg/dL (0.70-1.30) L 02/26/20 06:20 Estimated GFR/1.73 m2 >= 60.00 (mL/min/1.73m2) 02/26/20 06:20 Glucose 101 mg/dL (74-106) 02/26/20 06:20 Lactate 1.1 mmol/L (0.6-1.4) 02/24/20 08:05 Calcium 7.6 mg/dL (8.5-10.1) L 02/26/20 06:20 Phosphorus 3.3 mg/dL (2.6-4.7) 02/23/20 05:52 Magnesium 1.6 mg/dL (1.8-2.4) L 02/26/20 06:20 Iron 181 ug/dL (65-175) H 02/25/20 06:15 TIBC 182 ug/dL (250-450) L 02/25/20 06:15 Transferrin % Sat 99 % (20-55) H 02/25/20 06:15 Total Bilirubin 1.3 mg/dL (0.2-1.0) H 02/24/20 06:00 AST 35 U/L (15-37) 02/24/20 06:00 ALT 26 U/L (16-63) 02/24/20 06:00 Alkaline Phosphatase 44 U/L (46-116) L 02/24/20 06:00 Creatine Kinase 15 U/L (39-308) L 02/22/20 20:20 Troponin I < 0.05 ng/Ml (<0.06) 02/23/20 05:52 Total Protein 5.1 g/dL (6.4-8.2) L 02/24/20 06:00 Albumin 1.9 g/dL (3.4-5.0) L 02/24/20 06:00 Lipase 29 U/L (73-393) 02/23/20 05:52 Procalcitonin 0.5 ng/mL 02/22/20 20:20 Urine Color Yellow (Yellow) 02/23/20 14:00 Urine Clarity Clear (Clear) 02/23/20 14:00 Urine pH 6.5 (5-8) 02/23/20 14:00 Ur Specific [place] 1.020 (1.005-1.025) 02/23/20 14:00 Urine Protein Negative mg/dL (Negative) 02/23/20 14:00 Urine Ketones Negative mg/dL (Negative) 02/23/20 14:00 Urine Blood Trace-lysed (Negative) H 02/23/20 14:00 Urine Nitrite Negative (Negative) 02/23/20 14:00 Urine Bilirubin Negative (Negative) 02/23/20 14:00 Urine Urobilinogen 0.2 EU/dL (Up TO 0.2) 02/23/20 14:00 Ur Leukocyte Esterase Negative (Negative) 02/23/20 14:00 Urine RBC 5-10 HPF (0-2) H 02/23/20 14:00 Urine WBC 3-5 HPF (0-5) 02/23/20 14:00 Ur Epithelial Cells Rare HPF (Negative) 02/23/20 14:00 Urine Crystals Negative HPF (Negative) 02/23/20 14:00 Urine Bacteria Rare HPF (Negative) 02/23/20 14:00 Urine Casts Negative LPF (Negative) 02/23/20 14:00 Urine Mucus Negative (Negative) 02/23/20 14:00 Ur Culture Indicated? No 02/23/20 14:00 Urine Glucose Negative mg/dL (Negative) 02/23/20 14:00 Stool Campylobacter PCR Negative (Negative) 02/23/20 04:40 Stool Salmonella PCR Negative (Negative) 02/23/20 04:40 Stool Shigella PCR Negative (Negative) 02/23/20 04:40 Vancomycin Trough Cancelled 02/25/20 15:00 Urine Opiates Screen Positive (Negative) A 02/23/20 14:00 Urine Methadone Screen Negative (Negative) 02/23/20 14:00 Ur Barbiturates Screen Negative (Negative) 02/23/20 14:00 Ur Tricyclics Screen Negative (Negative) 02/23/20 14:00 Ur Amphetamines Screen Negative (Negative) 02/23/20 14:00 U Benzodiazepines Scrn Negative (Negative) 02/23/20 14:00 Urine Cocaine Screen Negative (Negative) 02/23/20 14:00 Ur THC Screen Positive (Negative) A 02/23/20 14:00 Ethyl Alcohol 97.5 mg/dL (<3) 02/22/20 20:20 Coronavirus (PCR) Negative (Negative) 02/23/20 03:42 Shiga Toxin (PCR) Negative (Negative) 02/23/20 04:40 Patient ABO/Rh A Negative 02/22/20 21:00 Antibody Screen Negative 02/22/20 21:00 Crossmatch See Detail 02/22/20 21:00
--- NOTE | 2020-02-26 16:38 | PDOC.CMPRO ---
- If Service Date Differs Date of service: 02/26/20 Time of Service: 16:38 Care Management Progress Note S/O: Alton is much improved today. He is alert and talkative when CM comes to meet with him. His diet has now been advanced and he has been switched to oral PPI. Alton reports he had a physical therapy evaluation today and says he is unsteady on his feet. When asked if he owns a FWW, he states he does not have one but believes he would benefit from one. CM advises him when he is ready for discharge, care management can provide him with a FWW if he still has a need for one. CM will continue to follow. A: Alton is a 60 year old male admitted to [facility] on 02/22/2020 for a GI bleed, sepsis, and rule-out Covid 19. P: Anticipate Alton will be discharged home with no new services when medically cleared by provider. He will follow-up with his PCP, surgeon, and plan of care as directed. His mother will drive him home via private vehicle when ready. CM will continue to support patient and discharge planning considerations.
--- NOTE | 2020-02-26 20:58 | NUR.NOTE ---
Sleeping soundly at 2020. 8PM medications deferred. Exit alarm on bed activated at 2029 and found standing hunched over at side of bed. Toppled over hitting right eyebrow on waste basket acquiring 1 inch laceration along brow line. Gauze dressing applied with pressure. Dr. Noriega made aware and ordered steri strip application and ice, and continue to onitor. Laceration reduced and steri strips applied. Minimal bleeding noted during event. Dr. Noriega up to evaluate. ICE pack applied. VS stable. Mental status remains at baseline. Medical Assistant Per Diem made aware. Nursing Note:
[2020-02-27] VITALS (10 sets, daily range): BP systolic 103–118; BP diastolic 65–79; PULSE 18–99; RESP 14–19; TEMP 36.1–37.1; O2SAT 92–99
[2020-02-27] MEDS: Sucralfate 1 GM TAB PO ×4 (04:13→21:25)
[2020-02-27] MEDS: LORazepam 2 MG/ML VIAL IVP (04:13)
[2020-02-27 06:37] LABS: HCT 32.2 % (40.0-50.0); HGB 9.7 g/dL (13.5-17.5); Mean Corp. HGB Concentration 30.1 g/dL (32.0-36.0); Mean Corpuscular Hemoglobin 26.5 pg (27.0-33.0); Mean Platelet Volume 10.4 fL (8.0-11.0); Platelet Count 218 x1000/uL (130-400); RBC 3.66 m/cumm (4.50-6.00); RBC Distribution Width 19.5 % (11.8-14.1); White Blood Cell Count 7.47 k/cumm (4.4-10.8)
[2020-02-27 06:47] LABS: Anion Gap 9.2 mmol/L (3-11); BUN 1 mg/dL (7-18); CO2 23.8 mmol/L (21.0-32.0); Calcium 7.8 mg/dL (8.5-10.1); Chloride 104 mmol/L (98-107); Glucose 95 mg/dL (74-106); Potassium 3.5 mmol/L (3.5-5.1); Sodium 137 mmol/L (136-145)
[2020-02-27] MEDS: Tiotropium Bromide-Respimat 10 PUFF INH IH (07:36)
[2020-02-27] MEDS: Budesonide/Formoterol 160/4.5 6 GM 60 PUFF INH IH ×2 (07:37→21:25)
[2020-02-27] MEDS: Pantoprazole 40 MG TABCR PO ×2 (08:16→21:25)
[2020-02-27] MEDS: Folic Acid 1 MG TAB PO (08:21)
[2020-02-27] MEDS: Multivitamin TAB 1 TAB PO (08:21)
[2020-02-27] MEDS: Thiamine 100 MG TAB PO (08:21)
[2020-02-27] MEDS: LORazepam 1 MG TAB PO/SL ×2 (08:22→12:58)
[2020-02-27] MEDS: Nicotine 14 MG/24 HR PATCH TD (12:16)
--- NOTE | 2020-02-27 12:28 | PGE_ITS ---
Date of Service Date of service: 02/27/20 Time of Service: 07:00 Assessment and Plan Assessment and plan (1) Erosive gastritis: Status: Acute Assessment and plan: No complaints of dyspepsia. Hemoglobin and vital signs stable. On oral PPI which should continue indefinitely. Avoid aggravating factors i.e. alcohol. (2) Alcohol withdrawal: Status: Acute Assessment and plan: Continues to have intermittent symptoms confusion. Tremor chronic. General debility and instability with continued fall risk that may be all alcohol related i.e. may have had some alcohol induced cerebellar toxicity on top of deconditioning and weakness from his hospitalization. Continue to monitor with CIWA scoring and PRN lorazepam. PT consult. We will have to see how his mental and physical functioning is over the next few days to determine discharge disposition?home or assisted living? If mental status does not seem to be clearing consider MRI of the brain. (3) COPD (chronic obstructive pulmonary disease): Status: Chronic Assessment and plan: Mild symptoms. Continue nicotine replacement and current inhalers. Increase activity. Qualifiers: COPD type: emphysema Emphysema type: panlobular Qualified Code(s): J43.1 - Panlobular emphysema (4) Anemia, iron deficiency: Status: Acute Assessment and plan: GI blood loss with low iron. Now that he is taking p.o. and tolerating it I will place him on iron supplement in addition to his other vitamins. (5) Hypokalemia due to excessive gastrointestinal loss of potassium: Status: Resolved Assessment and plan: Potassium normal. Monitor periodically now off all supplements. (6) Falls frequently: Status: Acute Assessment and plan: As above, may be deconditioning versus a more chronic problem from alcohol. Right eyebrow laceration Steri-Stripped. Monitor for any signs of infection. PT consult. (7) Incontinence of bowel: Status: Acute Assessment and plan: Suspect this is related to his episodes of confusion/encephalopathy. Hopefully not a long-term problem. Follow-up but no work-up planned at this time. Subjective Subjective Interval history since last seen: Intermittently confused. Still requiring IV lorazepam for alcohol withdrawal symptoms. Incontinent of bowel and bladder. Week. Fell last evening with laceration sustained to right forehead. He has memories of this event stating he was trying to get to the commode and lost his balance. No loss of consciousness. He has not had any headache or focal neurologic signs or symptoms since. No melanotic stool. Appetite picking up. No complaints of pain anywhere. Denies shortness of breath. He knows he is in the hospital in [place] and that is February 2020 but does not know the day of the week. Exam Narrative Exam Narrative: He remains afebrile. Blood pressure in the 1 teens over 70s sinus rhythm with a heart rate in the 80s to 90s for the most part. Steri-Strip laceration right lateral eyebrow with no edema or bruising and no tenderness. Pupils equal and reactive no nystagmus elicited. Speech clear. Tongue midline. Moves his head in rotation and flexion without discomfort. He has some mild unchanged intention tremor of the upper extremities. He can move all extremities against gravity. 2-3+ DTRs symmetric in the upper and lower extremities. He sits up unassisted. Lungs have good aeration with no wheezing heard today. Heart rhythm regular no murmur S3 or S4. Nontender abdomen with active bowel sounds. No peripheral edema, no petechiae. Objective Objective Clinical Data: Abnormal lab results 02/27/20 02/27/20 Range/Units 06:00 06:00 RBC 3.66 L (4.50-6.00) m/cumm Hgb 9.7 L (13.5-17.5) g/dL Hct 32.2 L (40.0-50.0) % MCH 26.5 L (27.0-33.0) pg MCHC 30.1 L (32.0-36.0) g/dL RDW 19.5 H (11.8-14.1) % BUN 1 L (7-18) mg/dL Creatinine 0.50 L (0.70-1.30) mg/dL Calcium 7.8 L (8.5-10.1) mg/dL Vital Signs Temperature 37 C 02/27/20 12:09 Temperature Source Temporal Artery Scan 02/27/20 07:40 Pulse 85 02/27/20 12:09 Pulse Rhythm Regular 02/27/20 07:50 Pulse 135 H 02/26/20 09:30 Respiratory Rate 18 02/27/20 12:09 Respiratory Effort 02/27/20 07:50 Respiratory Depth Shallow 02/27/20 07:50 Respiratory Pattern Normal 02/27/20 07:50 Blood Pressure 116/75 02/27/20 12:09 Blood Pressure Mean 82 02/27/20 04:19 Blood Pressure Position Supine 02/26/20 00:00 Pulse Oximetry 99 02/27/20 12:09 Respiratory End-tidal CO2 31 02/24/20 13:50 Oxygen Delivery Method Room Air 02/27/20 12:09 Oxygen Flow Rate 0 02/27/20 12:09 Fraction of Inspired Oxygen (FIO2) 40 02/24/20 13:50 Pain Level 0 02/27/20 12:09 Comment 02/23/20 14:30 Intake & Output 02/26/20 02/27/20 02/27/20 23:59 11:59 23:59 Intake Total 2261.2 / 3750.867 1073.334 / 1073.334 Output Total 600 / 1100 Balance 1661.2 / 2650.867 1073.334 / 1073.334 Weight 59.2 kg Intake: IV 2111.2 / 3500.867 833.334 / 833.334 Oral 150 / 250 240 / 240 Output: Urine 600 / 1100 Other: Urine Color Dark Lou Comment Pt agreed to have the catheter out. Patient did not want the catheter removed in the AM incontinent a moderate amount of urine and a smear of stool. Stool Size Smear Voiding Methods Incontinent Laboratory Results WBC 7.47 k/cumm (4.4-10.8) D 02/27/20 06:00 RBC 3.66 m/cumm (4.50-6.00) L 02/27/20 06:00 Hgb 9.7 g/dL (13.5-17.5) L 02/27/20 06:00 Hct 32.2 % (40.0-50.0) L 02/27/20 06:00 MCV 88.0 fL (80-95) 02/27/20 06:00 MCH 26.5 pg (27.0-33.0) L 02/27/20 06:00 MCHC 30.1 g/dL (32.0-36.0) L 02/27/20 06:00 RDW 19.5 % (11.8-14.1) H 02/27/20 06:00 Plt Count 218 x1000/uL (130-400) 02/27/20 06:00 MPV 10.4 fL (8.0-11.0) 02/27/20 06:00 Immature Gran % 0.2 % 02/24/20 06:00 Neutrophils % 77.6 02/24/20 06:00 Lymphocytes % 11.2 02/24/20 06:00 Monocytes % 9.3 02/24/20 06:00 Eosinophils % 1.5 02/24/20 06:00 Basophils % 0.2 02/24/20 06:00 Absolute Neutrophils 7.12 k/cumm (1.2-6.7) H 02/24/20 06:00 Absolute Lymphocytes 1.03 k/cumm (1.2-3.4) L 02/24/20 06:00 Absolute Monocytes 0.85 k/cumm (0.11-0.7) H 02/24/20 06:00 Absolute Eosinophils 0.14 k/cumm (0.0-0.7) 02/24/20 06:00 Absolute Basophils 0.02 k/cumm (0.0-0.2) 02/24/20 06:00 PT 11.4 sec (9.3-11.0) H 02/23/20 05:52 INR 1.1 (0.9-1.1) 02/23/20 05:52 APTT 25.6 sec (21.0-31.4) 02/22/20 20:32 Sodium 137 mmol/L (136-145) 02/27/20 06:00 Potassium 3.5 mmol/L (3.5-5.1) 02/27/20 06:00 Chloride 104 mmol/L (98-107) 02/27/20 06:00 Carbon Dioxide 23.8 mmol/L (21.0-32.0) 02/27/20 06:00 Anion Gap 9.2 mmol/L (3-11) 02/27/20 06:00 BUN 1 mg/dL (7-18) L 02/27/20 06:00 Creatinine 0.50 mg/dL (0.70-1.30) L 02/27/20 06:00 Estimated GFR/1.73 m2 >= 60.00 (mL/min/1.73m2) 02/27/20 06:00 Glucose 95 mg/dL (74-106) 02/27/20 06:00 Lactate 1.1 mmol/L (0.6-1.4) 02/24/20 08:05 Calcium 7.8 mg/dL (8.5-10.1) L 02/27/20 06:00 Phosphorus 3.3 mg/dL (2.6-4.7) 02/23/20 05:52 Magnesium 1.6 mg/dL (1.8-2.4) L 02/26/20 06:20 Iron 181 ug/dL (65-175) H 02/25/20 06:15 TIBC 182 ug/dL (250-450) L 02/25/20 06:15 Transferrin % Sat 99 % (20-55) H 02/25/20 06:15 Total Bilirubin 1.3 mg/dL (0.2-1.0) H 02/24/20 06:00 AST 35 U/L (15-37) 02/24/20 06:00 ALT 26 U/L (16-63) 02/24/20 06:00 Alkaline Phosphatase 44 U/L (46-116) L 02/24/20 06:00 Creatine Kinase 15 U/L (39-308) L 02/22/20 20:20 Troponin I < 0.05 ng/Ml (<0.06) 02/23/20 05:52 Total Protein 5.1 g/dL (6.4-8.2) L 02/24/20 06:00 Albumin 1.9 g/dL (3.4-5.0) L 02/24/20 06:00 Lipase 29 U/L (73-393) 02/23/20 05:52 Procalcitonin 0.5 ng/mL 02/22/20 20:20 Urine Color Yellow (Yellow) 02/23/20 14:00 Urine Clarity Clear (Clear) 02/23/20 14:00 Urine pH 6.5 (5-8) 02/23/20 14:00 Ur Specific [place] 1.020 (1.005-1.025) 02/23/20 14:00 Urine Protein Negative mg/dL (Negative) 02/23/20 14:00 Urine Ketones Negative mg/dL (Negative) 02/23/20 14:00 Urine Blood Trace-lysed (Negative) H 02/23/20 14:00 Urine Nitrite Negative (Negative) 02/23/20 14:00 Urine Bilirubin Negative (Negative) 02/23/20 14:00 Urine Urobilinogen 0.2 EU/dL (Up TO 0.2) 02/23/20 14:00 Ur Leukocyte Esterase Negative (Negative) 02/23/20 14:00 Urine RBC 5-10 HPF (0-2) H 02/23/20 14:00 Urine WBC 3-5 HPF (0-5) 02/23/20 14:00 Ur Epithelial Cells Rare HPF (Negative) 02/23/20 14:00 Urine Crystals Negative HPF (Negative) 02/23/20 14:00 Urine Bacteria Rare HPF (Negative) 02/23/20 14:00 Urine Casts Negative LPF (Negative) 02/23/20 14:00 Urine Mucus Negative (Negative) 02/23/20 14:00 Ur Culture Indicated? No 02/23/20 14:00 Urine Glucose Negative mg/dL (Negative) 02/23/20 14:00 Stool Campylobacter PCR Negative (Negative) 02/23/20 04:40 Stool Salmonella PCR Negative (Negative) 02/23/20 04:40 Stool Shigella PCR Negative (Negative) 02/23/20 04:40 Vancomycin Trough Cancelled 02/25/20 15:00 Urine Opiates Screen Positive (Negative) A 02/23/20 14:00 Urine Methadone Screen Negative (Negative) 02/23/20 14:00 Ur Barbiturates Screen Negative (Negative) 02/23/20 14:00 Ur Tricyclics Screen Negative (Negative) 02/23/20 14:00 Ur Amphetamines Screen Negative (Negative) 02/23/20 14:00 U Benzodiazepines Scrn Negative (Negative) 02/23/20 14:00 Urine Cocaine Screen Negative (Negative) 02/23/20 14:00 Ur THC Screen Positive (Negative) A 02/23/20 14:00 Ethyl Alcohol 97.5 mg/dL (<3) 02/22/20 20:20 Coronavirus (PCR) Negative (Negative) 02/23/20 03:42 Shiga Toxin (PCR) Negative (Negative) 02/23/20 04:40 Patient ABO/Rh A Negative 02/22/20 21:00 Antibody Screen Negative 02/22/20 21:00 Crossmatch See Detail 02/22/20 21:00
--- NOTE | 2020-02-27 13:18 | PDOC.CMPRO ---
- If Service Date Differs Date of service: 02/27/20 Time of Service: 13:18 Care Management Progress Note S/O: Alton is alert during CM assessment. Alton states I am tired of being in the hospital. Alton declined SNF referral. He would benefit from home health nursing and PT related to prolonged hospitalization and weakness, which Alton agrees to. Alton will need a FWW prior to discharge, CM will provide. CM will continue to assess for any additional discharge needs. A: Alton is a 60 year old male admitted to [facility] on 02/22/2020 for a GI bleed, sepsis, and rule-out Covid 19. P: Alton will be discharged with new home health services for nursing and PT. CM faxed referral. He will follow-up with his PCP, surgeon, and plan of care as directed. His mother will drive him home via private vehicle when ready. CM will continue to support patient and discharge planning considerations.
--- NOTE | 2020-02-27 13:53 | W.PM.PROGNOT ---
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 Rx carafate/protonix indefinitely. avoid asa/nsaids. weill re-eval at your request. Objective Objective Clinical Data: Abnormal lab results 02/27/20 02/27/20 Range/Units 06:00 06:00 RBC 3.66 L (4.50-6.00) m/cumm Hgb 9.7 L (13.5-17.5) g/dL Hct 32.2 L (40.0-50.0) % MCH 26.5 L (27.0-33.0) pg MCHC 30.1 L (32.0-36.0) g/dL RDW 19.5 H (11.8-14.1) % BUN 1 L (7-18) mg/dL Creatinine 0.50 L (0.70-1.30) mg/dL Calcium 7.8 L (8.5-10.1) mg/dL Vital Signs Temperature 36.1 C L 02/27/20 12:46 Temperature Source Temporal Artery Scan 02/27/20 12:46 Pulse 99 H 02/27/20 12:46 Pulse Rhythm Regular 02/27/20 13:11 Pulse 135 H 02/26/20 09:30 Respiratory Rate 18 02/27/20 12:46 Respiratory Effort Non-Labored 02/27/20 13:11 Respiratory Depth Normal 02/27/20 13:11 Respiratory Pattern Normal 02/27/20 13:11 Blood Pressure 113/70 02/27/20 12:46 Blood Pressure Mean 82 02/27/20 04:19 Blood Pressure Position Supine 02/26/20 00:00 Pulse Oximetry 95 02/27/20 12:46 Respiratory End-tidal CO2 31 02/24/20 13:50 Oxygen Delivery Method Room Air 02/27/20 12:46 Oxygen Flow Rate 0 02/27/20 12:46 Fraction of Inspired Oxygen (FIO2) 40 02/24/20 13:50 Pain Level 3 02/27/20 12:46 Comment 02/23/20 14:30 Intake & Output 02/26/20 02/27/20 02/27/20 23:59 11:59 23:59 Intake Total 2261.2 / 3750.867 1073.334 / 1073.334 Output Total 600 / 1100 Balance 1661.2 / 2650.867 1073.334 / 1073.334 Weight 59.2 kg Intake: IV 2111.2 / 3500.867 833.334 / 833.334 Oral 150 / 250 240 / 240 Output: Urine 600 / 1100 Other: Urine Color Dark Lou Urine Appearance Clear Comment Pt agreed to have the catheter out. Patient did not want the catheter removed in the AM incontinent a moderate amount of urine and a smear of stool. Stool Size Smear Voiding Methods Incontinent Laboratory Results WBC 7.47 k/cumm (4.4-10.8) D 02/27/20 06:00 RBC 3.66 m/cumm (4.50-6.00) L 02/27/20 06:00 Hgb 9.7 g/dL (13.5-17.5) L 02/27/20 06:00 Hct 32.2 % (40.0-50.0) L 02/27/20 06:00 MCV 88.0 fL (80-95) 02/27/20 06:00 MCH 26.5 pg (27.0-33.0) L 02/27/20 06:00 MCHC 30.1 g/dL (32.0-36.0) L 02/27/20 06:00 RDW 19.5 % (11.8-14.1) H 02/27/20 06:00 Plt Count 218 x1000/uL (130-400) 02/27/20 06:00 MPV 10.4 fL (8.0-11.0) 02/27/20 06:00 Immature Gran % 0.2 % 02/24/20 06:00 Neutrophils % 77.6 02/24/20 06:00 Lymphocytes % 11.2 02/24/20 06:00 Monocytes % 9.3 02/24/20 06:00 Eosinophils % 1.5 02/24/20 06:00 Basophils % 0.2 02/24/20 06:00 Absolute Neutrophils 7.12 k/cumm (1.2-6.7) H 02/24/20 06:00 Absolute Lymphocytes 1.03 k/cumm (1.2-3.4) L 02/24/20 06:00 Absolute Monocytes 0.85 k/cumm (0.11-0.7) H 02/24/20 06:00 Absolute Eosinophils 0.14 k/cumm (0.0-0.7) 02/24/20 06:00 Absolute Basophils 0.02 k/cumm (0.0-0.2) 02/24/20 06:00 PT 11.4 sec (9.3-11.0) H 02/23/20 05:52 INR 1.1 (0.9-1.1) 02/23/20 05:52 APTT 25.6 sec (21.0-31.4) 02/22/20 20:32 Sodium 137 mmol/L (136-145) 02/27/20 06:00 Potassium 3.5 mmol/L (3.5-5.1) 02/27/20 06:00 Chloride 104 mmol/L (98-107) 02/27/20 06:00 Carbon Dioxide 23.8 mmol/L (21.0-32.0) 02/27/20 06:00 Anion Gap 9.2 mmol/L (3-11) 02/27/20 06:00 BUN 1 mg/dL (7-18) L 02/27/20 06:00 Creatinine 0.50 mg/dL (0.70-1.30) L 02/27/20 06:00 Estimated GFR/1.73 m2 >= 60.00 (mL/min/1.73m2) 02/27/20 06:00 Glucose 95 mg/dL (74-106) 02/27/20 06:00 Lactate 1.1 mmol/L (0.6-1.4) 02/24/20 08:05 Calcium 7.8 mg/dL (8.5-10.1) L 02/27/20 06:00 Phosphorus 3.3 mg/dL (2.6-4.7) 02/23/20 05:52 Magnesium 1.6 mg/dL (1.8-2.4) L 02/26/20 06:20 Iron 181 ug/dL (65-175) H 02/25/20 06:15 TIBC 182 ug/dL (250-450) L 02/25/20 06:15 Transferrin % Sat 99 % (20-55) H 02/25/20 06:15 Total Bilirubin 1.3 mg/dL (0.2-1.0) H 02/24/20 06:00 AST 35 U/L (15-37) 02/24/20 06:00 ALT 26 U/L (16-63) 02/24/20 06:00 Alkaline Phosphatase 44 U/L (46-116) L 02/24/20 06:00 Creatine Kinase 15 U/L (39-308) L 02/22/20 20:20 Troponin I < 0.05 ng/Ml (<0.06) 02/23/20 05:52 Total Protein 5.1 g/dL (6.4-8.2) L 02/24/20 06:00 Albumin 1.9 g/dL (3.4-5.0) L 02/24/20 06:00 Lipase 29 U/L (73-393) 02/23/20 05:52 Procalcitonin 0.5 ng/mL 02/22/20 20:20 Urine Color Yellow (Yellow) 02/23/20 14:00 Urine Clarity Clear (Clear) 02/23/20 14:00 Urine pH 6.5 (5-8) 02/23/20 14:00 Ur Specific [place] 1.020 (1.005-1.025) 02/23/20 14:00 Urine Protein Negative mg/dL (Negative) 02/23/20 14:00 Urine Ketones Negative mg/dL (Negative) 02/23/20 14:00 Urine Blood Trace-lysed (Negative) H 02/23/20 14:00 Urine Nitrite Negative (Negative) 02/23/20 14:00 Urine Bilirubin Negative (Negative) 02/23/20 14:00 Urine Urobilinogen 0.2 EU/dL (Up TO 0.2) 02/23/20 14:00 Ur Leukocyte Esterase Negative (Negative) 02/23/20 14:00 Urine RBC 5-10 HPF (0-2) H 02/23/20 14:00 Urine WBC 3-5 HPF (0-5) 02/23/20 14:00 Ur Epithelial Cells Rare HPF (Negative) 02/23/20 14:00 Urine Crystals Negative HPF (Negative) 02/23/20 14:00 Urine Bacteria Rare HPF (Negative) 02/23/20 14:00 Urine Casts Negative LPF (Negative) 02/23/20 14:00 Urine Mucus Negative (Negative) 02/23/20 14:00 Ur Culture Indicated? No 02/23/20 14:00 Urine Glucose Negative mg/dL (Negative) 02/23/20 14:00 Stool Campylobacter PCR Negative (Negative) 02/23/20 04:40 Stool Salmonella PCR Negative (Negative) 02/23/20 04:40 Stool Shigella PCR Negative (Negative) 02/23/20 04:40 Vancomycin Trough Cancelled 02/25/20 15:00 Urine Opiates Screen Positive (Negative) A 02/23/20 14:00 Urine Methadone Screen Negative (Negative) 02/23/20 14:00 Ur Barbiturates Screen Negative (Negative) 02/23/20 14:00 Ur Tricyclics Screen Negative (Negative) 02/23/20 14:00 Ur Amphetamines Screen Negative (Negative) 02/23/20 14:00 U Benzodiazepines Scrn Negative (Negative) 02/23/20 14:00 Urine Cocaine Screen Negative (Negative) 02/23/20 14:00 Ur THC Screen Positive (Negative) A 02/23/20 14:00 Ethyl Alcohol 97.5 mg/dL (<3) 02/22/20 20:20 Coronavirus (PCR) Negative (Negative) 02/23/20 03:42 Shiga Toxin (PCR) Negative (Negative) 02/23/20 04:40 Patient ABO/Rh A Negative 02/22/20 21:00 Antibody Screen Negative 02/22/20 21:00 Crossmatch See Detail 02/22/20 21:00
--- NOTE | 2020-02-27 14:05 | PT.INTREAT ---
Date of service: 02/27/20 Time of Service: 14:05 PT Notes Visit Reasons: GI BLEED,SEPSIS,R/O COVID 19 Inpatient Physical Therapy Treatment Note [facility] Date: 02/27/2020 PRECAUTIONS: Fall. Standard. Activity as tolerated. SUBJECTIVE: Patient states that he has had the shakes before, but never this much. He continues to complain that his room is too cold. He reported fatigue towards the end of exercise session. He feels that the right part of his thigh is a lot weaker than on the left side. Patient states that he has fallen twice in the past 6 months. He does feel that he needs a walker to be safe at home. He denies any shoulder Nor abdominal pain, headache, dizziness, throughout session. OBJECTIVE: IV access on the right UEs seen. Small wound dressing is seen on the lateral orbital area on the right side. Tremors seen to bilateral UEs and LE with UEs more affected. PAIN: 0/10 BED MOBILITY/TRANSFERS Rolling L/R: Supervision using BUE for support Supine-sit: Supervision using BUE for support Sit-supine: Supervision using BUE for support Sit-stand: Contact-guard assist with minimal cueing needed for hand placement; SBA in the afternoon Stand-sit: Contact-guard assist with minimal cueing needed for hand placement; SBA in the afternoon Bed-Chair: Contact-guard assist with minimal cueing needed for hand placement; SBA in the afternoon Chair-bed: Contact-guard assist with minimal cueing needed for hand placement; SBA in the afternoon GAIT Assistive Device: Front wheeled walker Weight bearing: Full weightbearing Assist: CGA Distance: 100 feet x 2; 120 feet +150 feet in the afternoon Deviation: Increased tremors seen with movement. Decreased kurtis. Cues needed to be given for walker management and hand placement on the walker. Step -through gait pattern. No LOB seen. THEREX Session 1: With 3 pound ankle weights to both sides, patient was able to tolerate long arc quads x10, seated hip flexion x10, and heel raises x10. Using green Thera-Band patient was able to tolerate clamshell exercises x10. Intermittent rests required to minimize fatigue and tremors. Session 2: With arms across chest, patient is able to perform sit to stand from the edge of the mat table x 5 reps for 2 sets with out much difficulty. He was able to tolerate 10 partial knee bends as well and 10 heel raises while holding onto walker for support. STAIRS Patient also tolerated up-and-down six 4 inch steps and four 6 inch steps while holding onto bilateral rails requiring standby assist of this PT and minimal verbal cues for safe technique using step to gait pattern for both the morning and afternoon sessions. ASSESSMENT: Patient is status post EGD on postoperative day 3 with no complaints of abdominal pain and shortness of breath throughout. Patient will highly benefit from the use of a front wheeled walker at home to reduce fall risk. PLAN: Continue with twice daily PT treatments to achieve goals. Patient may benefit from home health PT services in order to progress mobility level using front wheeled walker, assess home safety, identify additional equipment needs, and establish a functional maintenance program that will increase ability of patient to remain at home. TREATMENT CODE/TIME: Session 1??23325 x 30 minutes, [id number] x 19 minutes beginning at 10:10 AM. Session 2??23599 x 25 minutes, [id number] x 14 minutes beginning at 14:05 PM.
[2020-02-28] VITALS (9 sets, daily range): BP systolic 97–125; BP diastolic 64–79; PULSE 72–100; RESP 18–20; TEMP 36.8–37.7; O2SAT 96–98
[2020-02-28] MEDS: Sucralfate 1 GM TAB PO ×4 (02:47→21:11)
[2020-02-28] MEDS: LORazepam 1 MG TAB PO/SL ×3 (03:01→21:25)
[2020-02-28] MEDS: Nicotine 14 MG/24 HR PATCH TD (08:25)
[2020-02-28] MEDS: Folic Acid 1 MG TAB PO (08:26)
[2020-02-28] MEDS: Pantoprazole 40 MG TABCR PO ×2 (08:26→21:11)
[2020-02-28] MEDS: Thiamine 100 MG TAB PO (08:26)
[2020-02-28] MEDS: Ferrous Gluconate 324 MG TAB PO (08:26)
[2020-02-28] MEDS: Multivitamin TAB 1 TAB PO (08:27)
[2020-02-28] MEDS: Budesonide/Formoterol 160/4.5 6 GM 60 PUFF INH IH ×2 (10:05→21:12)
[2020-02-28] MEDS: Tiotropium Bromide-Respimat 10 PUFF INH IH (10:19)
[2020-02-28 10:24] LABS: HCT 34.9 % (40.0-50.0); HGB 10.7 g/dL (13.5-17.5)
--- NOTE | 2020-02-28 12:50 | PDOC.CMPRO ---
- If Service Date Differs Date of service: 02/28/20 Time of Service: 12:50 Care Management Progress Note S/O: Alton is lying in bed when CM comes to meet with him. He reports working with physical therapy this morning and says that went well, but he remains unsteady on his feet. Alton shares he is looking forward to returning home and knows he will be here for a couple more days. He is making plans for his mother to stay with him for a period of time after he returns home. Alton confirms he has agreed to receiving Home Health services. CM will continue to follow. A: Alton is a 60 year old male admitted to [facility] on 02/22/2020 for a GI bleed, sepsis, and rule-out Covid 19. P: Anticipate Alton will discharge home with new Home Health nursing and PT services once medically cleared by provider. CM will provide Alton with a FWW upon discharge. He will follow-up with his PCP, surgeon, and plan of care as directed. He will be transported home via private vehicle with family when ready. CM will continue to follow patient and to support discharge planning needs. [
--- NOTE | 2020-02-28 13:02 | PT.INTREAT ---
Date of service: 02/28/20 Time of Service: 13:02 PT Notes Visit Reasons: GI BLEED,SEPSIS,R/O COVID 19 Inpatient Physical Therapy Treatment Note [facility] Date: 02/28/2020 PRECAUTIONS: Fall. Standard. Activity as tolerated. SUBJECTIVE Session 1: Patient complained about being woken up every two hours last night. He is relieved about having a good bowel movement since day of admission. He reported being moderately out of breath towards the end of PT session in the morning. He states that he missed his breathing treatment in [place] prior to working with this PT. He is firm about going home when discharged from here, not to a SNF, when clarified by Dr. Arvizu. Patient also reported of his bottom hurting with chair reclined and was trying to reposition self when this PT arrived for the morning session. Session 2: Patient reports feeling a lot better compared to this morning. He states that he's got more spry than he did earlier. He again requested assistance with toileting for bowel movement saying that going back to regular diet has stimulated his tummy. Denies any headache, chest pain, nor SOB. OBJECTIVE: IV access on the right UEs seen. Small wound dressing is seen on the lateral orbital area on the right side. Tremors seen to bilateral UEs and LE with UEs more affected. In the morning, patient appeared restless on chair trying to reposition upon arrival of PT due to pain in his bottom. Oxygen supplement from this morning now off. PAIN: 0/10 BED MOBILITY/TRANSFERS Rolling L/R: Supervision using BUE for support Supine-sit: Supervision using BUE for support Sit-supine: Supervision using BUE for support Sit-stand from toilet seat: Contact-guard assist with minimal cueing needed for hand placement, patient had near LOB x2; SBA in the afternoon Sit to stand from wheelchair: Standby assist with minimal cueing needed for hand placement; in the afternoon Stand-sit: Contact-guard assist with minimal cueing needed for hand placement; SBA in the afternoon Bed-Chair: Contact-guard assist with minimal cueing needed for hand placement; SBA in the afternoon Chair-bed: Contact-guard assist with minimal cueing needed for hand placement; SBA in the afternoon GAIT Assistive Device: Front wheeled walker Weight bearing: Full weightbearing Assist: CGA Distance: 100 feet patient needed to be wheeled back to his room as he was complaining of moderate shortness of breath; 100 feet x 2 in the afternoon Deviation: Increased tremors seen with movement but significantly decreased this afternoon. Beginning increase in kurtis seen. MInimal cues needed for walker management and hand placement on the walker. Step -through gait pattern. No LOB seen. THEREX Session 1: With 3 pound ankle weights to both sides, patient was able to tolerate long arc quads x10 and seated hip flexion x10. Using green Thera-Band, patient was able to tolerate clamshell exercises x10 and seated hip flexion exercises x10. Intermittent rests and deep breathing exercises needed to minimize fatigue and tremors. Session 2: With arms across chest, patient is able to perform sit to stand from the edge of the mat table x 5 reps for 2 sets with out much difficulty with HR from 107-129 bpm during activity. STAIRS Patient also tolerated up-and-down twelve 4-inch steps and six 6-inch steps while holding onto left rail requiring standby assist of this PT and minimal verbal cues for safe technique using step to gait pattern ASSESSMENT: Patient is status post EGD on postoperative day 4 with no complaints of abdominal pain but with moderate shortness of breath throughout. He needed to be wheeled back to his room with oxygen desaturation to 84% on room air. Nurse preparation supervisor Catian was informed who provided 2 L of oxygen supplementation for patient via NC. Patient remained below 8 88% on 2 L and so he was further increased to 3 L/min and eventually re-saturated back to 94% after about 5 minutes or so. RT was updated of patient's status. MD was notified immediately. In the second session, patient's oxygen saturation stayed above 94% on RA throughout activity. HR bounced from 89 bpm through 129 bpm throughout session. Tremors visibly decreased compared to this morning. Patient will highly benefit from the use of a front wheeled walker at home to reduce fall risk. PLAN: Continue with twice daily PT treatments to achieve goals. Patient may benefit from home health PT services in order to progress mobility level using front wheeled walker, assess home safety, identify additional equipment needs, and establish a functional maintenance program that will increase ability of patient to remain at home. TREATMENT CODE/TIME: Session 1??58835 x 30 minutes, [id number] x 26 minutes beginning at 9:15 AM. Session 2??[id number] x 39 minutes beginning at 13:02 PM.
--- NOTE | 2020-02-28 13:23 | W.NUTRFU ---
Date of service: 02/28/20 Time of Service: 13:23 Nutritional Follow up NOTE: Alton is tolerating soft diet well, taking ensure clear BID. Currently meeting increased nutrient needs by mouth, some abnormal labs (low BUN/Cre), unclear etiology as reports drinking fluids through out day. Vits/Minerals adequately repleted, hemoglobin stable. Will continue to supplement po intake with ensure clears and monitor labs, weights and diet acceptance on daily basis. Weight stable and on low end of normal. Time Spent in Nutritional Counseling and Treatment: 10 min spent face to face
--- NOTE | 2020-02-28 14:22 | W.PM.PROGNOT ---
Date of Service Date of service: 02/28/20 Time of Service: 10:30 Assessment and Plan Assessment and plan (1) Sinus tachycardia: Status: Acute Assessment and plan: This may represent first effort in getting him up and moving with some deconditioning and perhaps autonomic instability related to alcohol and/or prolonged bedrest? His anemia is not any worse. At this point continue current treatment plan and monitor for recurrent symptoms. (2) Erosive gastritis: Status: Acute Assessment and plan: No complaints of dyspepsia. On oral PPI and sucralfate which should continue indefinitely. Avoid aggravating factors i.e. alcohol. (3) Alcohol withdrawal: Status: Acute Assessment and plan: Continues to have intermittent symptoms confusion. Tremor chronic. General debility and instability with continued fall risk that may be all alcohol related i.e. may have had some alcohol induced cerebellar toxicity on top of deconditioning and weakness from his hospitalization. Continue to monitor with CIWA scoring and PRN lorazepam. (4) COPD (chronic obstructive pulmonary disease): Status: Chronic Assessment and plan: Mild symptoms. Continue nicotine replacement and current inhalers. Increase activity. Qualifiers: COPD type: emphysema Emphysema type: panlobular Qualified Code(s): J43.1 - Panlobular emphysema (5) Anemia, iron deficiency: Status: Acute Assessment and plan: GI blood loss with low iron. Continue on iron supplement in addition to his other vitamins. (6) Hypokalemia due to excessive gastrointestinal loss of potassium: Status: Resolved Assessment and plan: Potassium normal. Monitor periodically now off all supplements. (7) Falls frequently: Status: Acute Assessment and plan: As above, may be deconditioning versus a more chronic problem from alcohol. Right eyebrow laceration Steri-Stripped. Monitor for any signs of infection. Continue with efforts at PT. (8) Incontinence of bowel: Status: Acute Assessment and plan: Suspect this is related to his episodes of confusion/encephalopathy. Hopefully not a long-term problem. Subjective Subjective Interval history since last seen: Mr. Awad is complaining of nonspecifically and generally feeling unwell after PT took him for a brief walk in the hallway. He was noted to be tachycardic, with oxygen saturations by pulse oximetry that varied a bit and were difficult to assess until he sat and rested. At that point SaO2 on room air was in the mid 90% range. He did not endorse feeling faint. Did not endorse pain anywhere. Acknowledges that he felt a little short of breath. Appetite remains excellent. He had no abdominal pain. No melanotic stool. He remains incontinent. EKG done soon after this showed sinus tachycardia with a rate in the 120s. Repeat hemoglobin has gone up to 10.7. He received a neb treatment, was placed in bed and rested and has felt better. He continues to have withdrawal scoring requiring episodic dosing of lorazepam. Exam Narrative Exam Narrative: Mildly tremulous. He knows he is in the hospital but does not know the date. Pupils equal and reactive with no spontaneous nystagmus. No scleral icterus. No JVD. Neck supple. Lungs with somewhat distant breath sounds and some faint expiratory wheezing prior to using his inhaler. Regular tachycardia without S3-S4 or murmur. Abdomen with normal bowel sounds no tenderness. No guarding or rebound. No ankle edema. 1+ pulses in the feet. Transfers with contact guarding for balance. Objective Objective Clinical Data: Abnormal lab results EKG sinus tachycardia. 02/28/20 Range/Units 10:15 Hgb 10.7 L (13.5-17.5) g/dL Hct 34.9 L (40.0-50.0) % Vital Signs Temperature 36.8 C 02/28/20 11:57 Temperature Source Tympanic 02/28/20 11:57 Pulse 100 H 02/28/20 11:57 Pulse Rhythm Regular 02/27/20 19:15 Pulse 135 H 02/26/20 09:30 Respiratory Rate 18 02/28/20 11:57 Respiratory Effort 02/28/20 03:34 Respiratory Depth Normal 02/28/20 03:34 Respiratory Pattern Normal 02/28/20 03:34 Blood Pressure 104/70 02/28/20 11:57 Blood Pressure Mean 82 02/27/20 04:19 Blood Pressure Position Supine 02/26/20 00:00 Pulse Oximetry 96 02/28/20 12:36 Respiratory End-tidal CO2 31 02/24/20 13:50 Oxygen Delivery Method Room Air 02/28/20 12:36 Oxygen Flow Rate 0 02/28/20 12:36 Fraction of Inspired Oxygen (FIO2) 40 02/24/20 13:50 Pain Level 0 02/27/20 19:05 Comment 02/23/20 14:30 Intake & Output 02/27/20 02/28/20 02/28/20 23:59 11:59 23:59 Weight 57.1 kg Other: Urine Color Yellow Urine Appearance Clear Clear Comment Grossly incontinent. Stool Size Small Stool Characteristics Soft Voiding Methods Incontinent Laboratory Results WBC 7.47 k/cumm (4.4-10.8) D 02/27/20 06:00 RBC 3.66 m/cumm (4.50-6.00) L 02/27/20 06:00 Hgb 10.7 g/dL (13.5-17.5) L 02/28/20 10:15 Hct 34.9 % (40.0-50.0) L 02/28/20 10:15 MCV 88.0 fL (80-95) 02/27/20 06:00 MCH 26.5 pg (27.0-33.0) L 02/27/20 06:00 MCHC 30.1 g/dL (32.0-36.0) L 02/27/20 06:00 RDW 19.5 % (11.8-14.1) H 02/27/20 06:00 Plt Count 218 x1000/uL (130-400) 02/27/20 06:00 MPV 10.4 fL (8.0-11.0) 02/27/20 06:00 Immature Gran % 0.2 % 02/24/20 06:00 Neutrophils % 77.6 02/24/20 06:00 Lymphocytes % 11.2 02/24/20 06:00 Monocytes % 9.3 02/24/20 06:00 Eosinophils % 1.5 02/24/20 06:00 Basophils % 0.2 02/24/20 06:00 Absolute Neutrophils 7.12 k/cumm (1.2-6.7) H 02/24/20 06:00 Absolute Lymphocytes 1.03 k/cumm (1.2-3.4) L 02/24/20 06:00 Absolute Monocytes 0.85 k/cumm (0.11-0.7) H 02/24/20 06:00 Absolute Eosinophils 0.14 k/cumm (0.0-0.7) 02/24/20 06:00 Absolute Basophils 0.02 k/cumm (0.0-0.2) 02/24/20 06:00 PT 11.4 sec (9.3-11.0) H 02/23/20 05:52 INR 1.1 (0.9-1.1) 02/23/20 05:52 APTT 25.6 sec (21.0-31.4) 02/22/20 20:32 Sodium 137 mmol/L (136-145) 02/27/20 06:00 Potassium 3.5 mmol/L (3.5-5.1) 02/27/20 06:00 Chloride 104 mmol/L (98-107) 02/27/20 06:00 Carbon Dioxide 23.8 mmol/L (21.0-32.0) 02/27/20 06:00 Anion Gap 9.2 mmol/L (3-11) 02/27/20 06:00 BUN 1 mg/dL (7-18) L 02/27/20 06:00 Creatinine 0.50 mg/dL (0.70-1.30) L 02/27/20 06:00 Estimated GFR/1.73 m2 >= 60.00 (mL/min/1.73m2) 02/27/20 06:00 Glucose 95 mg/dL (74-106) 02/27/20 06:00 Lactate 1.1 mmol/L (0.6-1.4) 02/24/20 08:05 Calcium 7.8 mg/dL (8.5-10.1) L 02/27/20 06:00 Phosphorus 3.3 mg/dL (2.6-4.7) 02/23/20 05:52 Magnesium 1.6 mg/dL (1.8-2.4) L 02/26/20 06:20 Iron 181 ug/dL (65-175) H 02/25/20 06:15 TIBC 182 ug/dL (250-450) L 02/25/20 06:15 Transferrin % Sat 99 % (20-55) H 02/25/20 06:15 Total Bilirubin 1.3 mg/dL (0.2-1.0) H 02/24/20 06:00 AST 35 U/L (15-37) 02/24/20 06:00 ALT 26 U/L (16-63) 02/24/20 06:00 Alkaline Phosphatase 44 U/L (46-116) L 02/24/20 06:00 Creatine Kinase 15 U/L (39-308) L 02/22/20 20:20 Troponin I < 0.05 ng/Ml (<0.06) 02/23/20 05:52 Total Protein 5.1 g/dL (6.4-8.2) L 02/24/20 06:00 Albumin 1.9 g/dL (3.4-5.0) L 02/24/20 06:00 Lipase 29 U/L (73-393) 02/23/20 05:52 Procalcitonin 0.5 ng/mL 02/22/20 20:20 Urine Color Yellow (Yellow) 02/23/20 14:00 Urine Clarity Clear (Clear) 02/23/20 14:00 Urine pH 6.5 (5-8) 02/23/20 14:00 Ur Specific Frederic 1.020 (1.005-1.025) 02/23/20 14:00 Urine Protein Negative mg/dL (Negative) 02/23/20 14:00 Urine Ketones Negative mg/dL (Negative) 02/23/20 14:00 Urine Blood Trace-lysed (Negative) H 02/23/20 14:00 Urine Nitrite Negative (Negative) 02/23/20 14:00 Urine Bilirubin Negative (Negative) 02/23/20 14:00 Urine Urobilinogen 0.2 EU/dL (Up TO 0.2) 02/23/20 14:00 Ur Leukocyte Esterase Negative (Negative) 02/23/20 14:00 Urine RBC 5-10 HPF (0-2) H 02/23/20 14:00 Urine WBC 3-5 HPF (0-5) 02/23/20 14:00 Ur Epithelial Cells Rare HPF (Negative) 02/23/20 14:00 Urine Crystals Negative HPF (Negative) 02/23/20 14:00 Urine Bacteria Rare HPF (Negative) 02/23/20 14:00 Urine Casts Negative LPF (Negative) 02/23/20 14:00 Urine Mucus Negative (Negative) 02/23/20 14:00 Ur Culture Indicated? No 02/23/20 14:00 Urine Glucose Negative mg/dL (Negative) 02/23/20 14:00 Stool Campylobacter PCR Negative (Negative) 02/23/20 04:40 Stool Salmonella PCR Negative (Negative) 02/23/20 04:40 Stool Shigella PCR Negative (Negative) 02/23/20 04:40 Vancomycin Trough Cancelled 02/25/20 15:00 Urine Opiates Screen Positive (Negative) A 02/23/20 14:00 Urine Methadone Screen Negative (Negative) 02/23/20 14:00 Ur Barbiturates Screen Negative (Negative) 02/23/20 14:00 Ur Tricyclics Screen Negative (Negative) 02/23/20 14:00 Ur Amphetamines Screen Negative (Negative) 02/23/20 14:00 U Benzodiazepines Scrn Negative (Negative) 02/23/20 14:00 Urine Cocaine Screen Negative (Negative) 02/23/20 14:00 Ur THC Screen Positive (Negative) A 02/23/20 14:00 Ethyl Alcohol 97.5 mg/dL (<3) 02/22/20 20:20 Coronavirus (PCR) Negative (Negative) 02/23/20 03:42 Shiga Toxin (PCR) Negative (Negative) 02/23/20 04:40 Patient ABO/Rh A Negative 02/22/20 21:00 Antibody Screen Negative 02/22/20 21:00 Crossmatch See Detail 02/22/20 21:00
[2020-02-28] MEDS: Normal Saline Flush 10 ML SYR IVP (23:43)
[2020-02-29 03:12] VITALS: BP 124/76; PULSE 85; RESP 19; TEMP 37.3; O2SAT 96
[2020-02-29 07:18] LABS: HCT 36.9 % (40.0-50.0); HGB 11.4 g/dL (13.5-17.5); Mean Corp. HGB Concentration 30.9 g/dL (32.0-36.0); Mean Corpuscular Hemoglobin 27.5 pg (27.0-33.0); Mean Corpuscular Volume 89.1 fL (80-95); Mean Platelet Volume 9.9 fL (8.0-11.0); RBC 4.14 m/cumm (4.50-6.00); RBC Distribution Width 21.4 % (11.8-14.1); White Blood Cell Count 9.41 k/cumm (4.4-10.8)
[2020-02-29 07:21] LABS: Platelet Count 360 x1000/uL (130-400)
[2020-02-29 07:29] LABS: Anion Gap 9.1 mmol/L (3-11); BUN 5 mg/dL (7-18); CO2 23.9 mmol/L (21.0-32.0); CREATININE 0.56 mg/dL (0.70-1.30); Calcium 8.5 mg/dL (8.5-10.1); Chloride 104 mmol/L (98-107); Glucose 106 mg/dL (74-106); Magnesium 1.6 mg/dL (1.8-2.4); Potassium 3.4 mmol/L (3.5-5.1); Sodium 137 mmol/L (136-145)
[2020-02-29 08:04] VITALS: BP 134/83; PULSE 86; RESP 20; TEMP 36.7; O2SAT 98
[2020-02-29] MEDS: Tiotropium Bromide-Respimat 10 PUFF INH IH (08:07)
[2020-02-29] MEDS: Budesonide/Formoterol 160/4.5 6 GM 60 PUFF INH IH (08:07)
[2020-02-29 09:45] VITALS: O2SAT 98
[2020-02-29] MEDS: Nicotine 14 MG/24 HR PATCH TD (09:49)
[2020-02-29] MEDS: Folic Acid 1 MG TAB PO (09:49)
[2020-02-29] MEDS: MAGNESIUM SULFATE 4 GM/100 ML BAG IVPB (09:49)
[2020-02-29] MEDS: Ferrous Gluconate 324 MG TAB PO (09:50)
[2020-02-29] MEDS: Potassium Chloride 20 MEQ TABCR 40 MEQ PO (09:50)
[2020-02-29] MEDS: Multivitamin TAB 1 TAB PO (09:50)
[2020-02-29] MEDS: Thiamine 100 MG TAB PO (09:50)
[2020-02-29] MEDS: Sucralfate 1 GM TAB PO (09:50)
[2020-02-29] MEDS: Pantoprazole 40 MG TABCR PO (09:51)
[2020-02-29] MEDS: LORazepam 1 MG TAB PO/SL (09:51)
[2020-02-29 11:40] VITALS: BP 132/80; PULSE 84; RESP 20; TEMP 36.7; O2SAT 98
--- NOTE | 2020-02-29 12:54 | INDS_ITS ---
Date of service: 02/29/20 Time of Service: 10:22 PT Notes Visit Reasons: GI BLEED,SEPSIS,R/O COVID 19 Inpatient Physical Therapy Discharge Summary Dates: 02/29/2020 Dates of Service: 02/26/2020 through 02/29/2020 Referring Doctor: Benny Arvizu MD PT Orders: PT CONSULT: extended stay weakness Precautions: Falls, Standard, Right clavicle fracture Patient Profile/Admitting Diagnosis: Alton is a 60-year-old male with a history of alcohol abuse, hepatitis, COPD, fatty liver, Hopson's esophagitis, previous GI bleeding presented to the emergency department via EMS with acute onset of black tarry stools with diarrhea and generalized weakness with fever. COVID 19 tested -negatvie results. Admitted secondary to Acute GI bleed, fever and hypotension. He leaves today AGAINST MEDICAL ADVICE. PMHX: Medical History Abnormal abdominal CT scan (Inactive) Alcohol induced fatty liver (Acute) Alcohol use disorder (Acute) Anemia, iron deficiency (Acute) Arthritis (Acute) Atherosclerosis of abdominal aorta (Acute) Hopson's esophagus determined by endoscopy (Acute) Barretts esophagus (Acute) Bone spur of foot (Acute) Chronic iron deficiency anemia (Acute) COPD (chronic obstructive pulmonary disease) (Chronic) DDD (degenerative disc disease) (Acute) Dehydration (Resolved) Dehydration, mild (Acute) Depression (Chronic) Depression with anxiety (Acute) Diverticulosis (Acute) Erosive gastritis (Acute) Erosive gastritis (Acute) Esophageal reflux (Acute) Essential tremor (Acute) Fatty liver (Acute) Gastroenteritis (Resolved) Hematemesis (Acute) Hepatitis A (Acute) Hyperlipemia (Acute) Hypokalemia due to excessive gastrointestinal loss of potassium (Acute) Hypomagnesemia (Acute) Insomnia (Acute) Left knee pain (Acute) Low back pain (Acute) Nonspecific ST-T wave electrocardiographic changes (Acute) Osteoarthritis (arthritis due to wear and tear of joints) (Chronic) Rectal polyp (Acute) Smoker unmotivated to quit (Resolved) Tetrahydrocannabinol (THC) use disorder, moderate, dependence (Acute) Thrombocytopenia (Chronic) Tobacco use disorder (Acute) Transaminitis (Acute) Urinary incontinence (Acute) Urinary urgency (Acute 08/14/17) Surgical History History of foot surgery (Acute) Hx of colonoscopy (Chronic) Hx of esophagogastroduodenoscopy (Chronic) Social History/Home Situation: Alton lives alone in [facility]. He is independent with ADLs, and transportation. He is currently unemployed and applying for disability, he is establishing care with [facility] to treat his mental health. 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 He has been out of work for the past 3 years and is applying for disability related to his mental health and physical health. Current Functional Limitations: He notes limited ambulation tolerance. He notes the shaking is getting worse. Equipment Owned/DME: None Subjective: Alton is upset about taking too long to be discharged from the hospital. He claims that he has been told one schedule time this morning but then it changed later in the morning. He does not know who is going to pick him up. He states that he has been to be able to do more when he is at home. Objective: General Observation: Patient resting in bed. IV magnesium to right UE ongoing. Mental Status: Patient appeared uptight and confused for this session today. He required more than usual directions to complete mobility tasks Pain: None reported ROM: Right Upper Extremity: Shoulder Flexion WFL. Shoulder abduction WFL. Elbow flexion WFL. Wrist flexion WFL. Functional opening and closing of hand WFL. Left Upper Extremity: Shoulder Flexion WFL. Shoulder abduction WFL. Elbow flexion WFL. Wrist flexion WFL. Functional opening and closing of hand WFL. Right Lower Extremity: Hip flexion WFL. Hip abduction WFL. Knee flexion WFL. Ankle dorsiflexion WFL. Ankle plantarflexion WFL. Left Lower Extremity: Hip flexion WFL. Hip abduction WFL. Knee flexion WFL. Ankle dorsiflexion WFL. Ankle plantarflexion WFL. Strength: Right Upper Extremity: Shoulder flexors 3-/5. Shoulder abductors 3-/5. Elbow flexors 4-/5. Elbow extensors 4-/5. Medical Office Worker strong. Left Upper Extremity: Shoulder flexors 4-/5. Shoulder abductors 4-/5. Elbow flexors 4-/5. Elbow extensors 4-/5. Medical Office Worker strong. Right Lower Extremity: Shoulder flexors 4-/5. Shoulder abductors 4-/5. Elbow flexors 4-/5. Elbow extensors 4-/5. Medical Office Worker strong. Left Lower Extremity: Shoulder flexors 4-/5. Shoulder abductors 4-/5. Elbow flexors 4-/5. Elbow extensors 4-/5. Medical Office Worker strong. Bed Mobility/Transfers: Rolling supervision Supine to sit supervision with minimal verbal cueing for safe technique Sit to supine supervision with minimal verbal cueing for safe technique Sit to stand standby assist with minima to moderate verbal cueing for safe technique Stand to sit standby assist with minima to moderate verbal cueing for safe technique Bed to chair standby assist with minima to moderate verbal cueing for safe technique Chair to bed standby assist with minima to moderate verbal cueing for safe technique Gait: Patient has been able to tolerate 100 to 150 feet on level surface ambulation using the front wheeled walker with SBA of PT with step through gait pattern. He also has been able to manage up-and-down nine 4 inch steps and six 6 inch steps while holding onto one rail with standby assist and minimal verbal cueing for overall safety with step over step gait pattern. Balance: Static Sitting: Normal Dynamic Sitting: Good Static Standing: Fair Dynamic Standing: Fair Assessment: Patient is a 60 year old male referred to physical therapy services with the diagnosis of acute GI bleed,fever and hypotension. Patient presents with clinical signs and symptoms consistent with diagnosis presenting with generalized muscle weakness, decreased activity tolerance, mobility and ADL impairment.patient remains in need of continued skilled physical therapy services due to remaining impairments as indicated below. Patient continues to presents with clinical signs and symptoms consistent with current/admitting diagnoses that have resulted to mobility limitations, gait instability, generalized weakness, and impairment of motor control as demonstrated by the following impairment level findings: 1. Decreased strength to B UE/LE major muscle groups 2. Impaired standing balance 3. Impaired activity tolerance 4. Fractured right clavicle Impairments continue to contribute to the following functional limitations: 1. Increased dependence with transfers 2. Inability to safely ambulate without assistive device and physical assistance 3. Increase completion time for mobility ADL performance 4. Increased fall risk Goals: Goals X1 week 1. Supine-Sit I NOT MET 2. Sit-Supine I NOT MET 3. Sit-Stand I NOT MET 4. Stand-Sit I NOT MET 5. Bed-Chair I NOT MET 6. Chair-Bed I NOT MET 7. Gait I with least restrictive assistive device 200 ft or greater NOT MET 8. Stairs I with use of railing NOT MET 9. Independent with home exercise program NOT MET 10. Dynamic Balance good NOT MET DISCHARGE RECOMMENDATIONS: Patient will benefit from home health PT services in order to progress mobility level using least restrictive assistive ambulatory device, assess home safety, identify additional equipment needs, and establish a functional maintenance program that will increase ability of patient to remain at home. Requires front wheeled walker to maximize mobility ADL performance and reduce fall risk at home. TREATMENT CODE/TIME: 52732 x 39 minutes beginning at 10:22 AM. Thank you very much for this referral. Sabina Kumar PT, DPT, CLT [facility] Inpatient PT at [facility]
--- NOTE | 2020-02-29 14:30 | DSE_ITS ---
Date of service: 02/29/20 Time of Service: 14:31 DS: Diagnosis Discharge Diagnosis (1) Hemorrhagic shock: Status: Resolved (2) Anemia associated with acute blood loss: Status: Acute (3) Acute GI bleeding: Status: Resolved (4) Sinus tachycardia: Status: Acute (5) Erosive gastritis: Status: Acute Asessment and Plan: due to alcohol consumption (6) Alcohol withdrawal: Status: Acute (7) COPD (chronic obstructive pulmonary disease): Status: Chronic (8) Anemia, iron deficiency: Status: Acute (9) Hypokalemia due to excessive gastrointestinal loss of potassium: Status: Resolved (10) Falls frequently: Status: Acute (11) Incontinence of bowel: Status: Acute (12) Hypomagnesemia: Status: Acute (13) Alcohol use disorder: Status: Acute Discharge Plan Disposition Patient Disposition: AGAINST MEDICAL ADVICE Condition: Stable Discharge Details Chief Complaint: GI Bleed Clinical Impression: Acute GI bleeding, Hypomagnesemia, Hypovolemic shock, Sepsis, Acute hypokalemia Reason For Visit: GI BLEED,SEPSIS,R/O COVID 19 Admit Date/Time: 02/22/20 22:57 Admit Provider: Niels Frost Attending Provider: Niels Frost Primary Care Provider: Jonathan Black ED Provider: Dewayne Gamez Hospital Course Hospital Course: Mr Awad is a 60 year old male with PMHx of alcohol abuse, who was admitted to [facility] ICU on 02/22/2020 under the hospitalist service with hemorrhagic shock due to anemia of acute upper GI bleeding/blood loss. Simultaneously, there was a concern for sepsis with slightly elevated procalcitonin, with source presumably being SBP, though there was not significant amount of ascites on CT. His blood cultures were negative, as was the urinalysis, and pneumonia was ruled out by a negative chest CT. He was treated with broad spectrum abx and weaned off pressors. COVID-19 was also ruled out. The patient received a total of 3 units of pRBCs, was treated with IV protonix and octreotide, and was evaluated by general surgery and taken to an EGD on 02/24/2020. EGD revealed severe diffuse errosive gastritis with three areas of arterial bleeding (presumed AVMs), which had to be filgurated. He was transferred to the medical surgical floor on 02/24/2020. His diet was gradually advanced. Empiric antibiotics were stopped on 02/25/2020 - clear source of infection was never discovered. He did demonstrate signs/symptoms of alcohol withdrawal and was treated with prn lorazepam per DEMETRICE. Protonix was transitioned to PO and diet was advanced. According to general surgery, he will need to be on carafate/protonix indefinitely, but will not require general surgery follow up. Physical therapy felt the patient would benefit from home health physical therapy and a walker. On 02/29/2020, the patient left the hospital AMA prior to being seen by me personally, but he was seen/spoken to by Claribel Jimenez NP on hospitalist service, explaining to him the risks of leaving AMA and trying to convince him to stay. He refused to stay or to finish repletion of his potassium/magnesium. Prescriptions for protonix and carafate as well as thiamine and magnesium are being sent to his pharmacy. Referrals to home health nursing and PT are being sent. He will need bloodwork (CBC, BMP, magnesium in 1 week), with results going to PCP (Dr Black). He is being referred to orthopedics for his R clavicular fracture, present on admission. Total time spent on completion of discharge summary/care for patient on day of discharge is 45 minutes. Home Meds and New Rx's Prescriptions: New thiamine HCl (vitamin B1) 100 mg tablet 100 mg PO DAILY Qty: 30 RF: 0 pantoprazole [Protonix] 40 mg tablet,delayed release (DR/EC) 40 mg PO BID Qty: 60 RF: 0 sucralfate [Carafate] 1 gram tablet 1 gm PO QACHS Qty: 120 RF: 0 magnesium oxide 400 mg (241.3 mg magnesium) tablet 400 mg PO DAILY Qty: 14 RF: 0 potassium chloride 20 mEq tablet extended release 20 meq PO DAILY Qty: 7 RF: 0 Continued albuterol sulfate 90 mcg/actuation HFA aerosol inhaler 2 puff INHALATION Q4H PRN (Reason: bronchospasm) Qty: 18 RF: 12 Spiriva with HandiHaler 18 mcg capsule, w/inhalation device 1 cap INHALATION DAILY Qty: 60 RF: 3 ferrous gluconate 324 mg (37.5 mg iron) tablet 324 mg PO DAILY RF: 0 Therapeutic-M 1 TAB tablet 1 tab PO DAILY Qty: 30 RF: 0 Discontinued zolpidem [Ambien] 5 MG tablet 10 mg PO HS RF: 0 Discharge Instructions Care Plan Goals: Home with home health nursing and PT. Home health nursing to draw CBC, BMP, magnesium on 03/09/2020. Results are to be sent to Dr Black. Referrals: Jonathan Black DO [Primary Care Provider] - Owen Pitt MD [ [facility] STAFF PHYSICIAN] - Activity:: Activity as Tolerated Equipment/Supplies:: Walker Diet:: soft bland diet Discharge Orders Discharge Orders: Discharge Order (Routine); Ordered 02/29/20 Ordered By: Laila Ontiveros Discharge Data Discharge Date/Time-TO BE ENTERED AT DEPARTURE: 02/29/20 12:49 DS: Summary Status at Discharge Functional status at discharge: uses cane/walker Overall status at discharge: patient is progressing back to baseline Mental Status: mental status grossly normal Speech and Movement: speech and movement normal and restless Mood: anxious mood Affect: irritable affect Exam Psych Mental Status: mental status grossly normal Speech and Movement: speech and movement normal and restless Mood: anxious mood Affect: irritable affect DS: Data Vitals/I&O Vitals and I&O: Vital Signs Temperature 36.7 C 02/29/20 08:04 Temperature Source Temporal Artery Scan 02/29/20 08:04 Pulse 86 02/29/20 08:04 Pulse Rhythm Regular 02/28/20 20:00 Pulse 135 H 02/26/20 09:30 Respiratory Rate 20 02/29/20 08:04 Respiratory Effort Non-Labored 02/28/20 20:00 Respiratory Depth Normal 02/28/20 20:00 Respiratory Pattern Normal 02/28/20 20:00 Blood Pressure 134/83 02/29/20 08:04 Blood Pressure Mean 82 02/27/20 04:19 Blood Pressure Position Supine 02/26/20 00:00 Pulse Oximetry 98 02/29/20 08:04 Respiratory End-tidal CO2 31 02/24/20 13:50 Oxygen Delivery Method Room Air 02/29/20 08:04 Oxygen Flow Rate 0 02/29/20 08:04 Fraction of Inspired Oxygen (FIO2) 40 02/24/20 13:50 Pain Level 0 02/29/20 08:04 Comment 02/23/20 14:30 Intake & Output 02/28/20 02/29/20 02/29/20 23:59 11:59 23:59 Intake Total 71.667 / 71.667 Output Total 100 / 100 180 / 180 Balance -100 / -100 -180 / -108.333 71.667 / -108.333 Intake: IV 71.667 / 71.667 Output: Urine 100 / 100 180 / 180 Other: Urine Color Yellow Yellow Urine Appearance Clear Clear Urine Odor Normal Stool Size Moderate Stool Characteristics Soft Liquid Brown Voiding Methods Diaper Incontinent Data Completed and Pending Completed studies during hospitalization [Text1]: CT chest/abdomen/pelvis with contrast 02/22/2020: No significant acute findings on scanning of the chest. Please see above discussion for discussion of chronic changes. Question wall thickening rectosigmoid, proctocolitis not excluded, please correlate clinically. Hepatic steatosis noted Note is made of comminuted fracture of the right clavicle medially which appears to show some callus formation and there are healing fractures of right 2nd and 3rd ribs noted as well anteriorly. CXR portable 02/22/2020: Portable upright chest at 2239 hours. Heart is not enlarged. The lungs are clear and well expanded. Right IJ catheter noted with its tip in the superior vena cava. Labs on day of discharge: Labs from last 24 hours 02/29/20 02/29/20 06:45 06:45 WBC 9.41 RBC 4.14 L Hgb 11.4 L Hct 36.9 L MCV 89.1 MCH 27.5 MCHC 30.9 L RDW 21.4 H Plt Count 360 D MPV 9.9 Sodium 137 Potassium 3.4 L Chloride 104 Carbon Dioxide 23.9 Anion Gap 9.1 BUN 5 L Creatinine 0.56 L Estimated GFR/1.73 m2 >= 60.00 Glucose 106 Calcium 8.5 Magnesium 1.6 L [facility] Medical History (Updated 02/29/20 @ 14:36 by Laila Ontiveros MD) Abnormal abdominal CT scan (Inactive) Alcohol induced fatty liver (Acute) Alcohol use disorder (Acute) Alcohol use disorder (Acute) Anemia, iron deficiency (Acute) Arthritis (Acute) Atherosclerosis of abdominal aorta (Acute) Hopson's esophagus determined by endoscopy (Acute) Barretts esophagus (Acute) Bone spur of foot (Acute) Chronic iron deficiency anemia (Acute) COPD (chronic obstructive pulmonary disease) (Chronic) DDD (degenerative disc disease) (Acute) Dehydration (Resolved) Dehydration, mild (Acute) Depression (Chronic) Depression with anxiety (Acute) Diverticulosis (Acute) Erosive gastritis (Acute) Erosive gastritis (Acute) Esophageal reflux (Acute) Essential tremor (Acute) Fatty liver (Acute) Gastroenteritis (Resolved) Hematemesis (Acute) Hepatitis A (Acute) Hyperlipemia (Acute) Hypokalemia due to excessive gastrointestinal loss of potassium (Resolved) Hypomagnesemia (Acute) Insomnia (Acute) Left knee pain (Acute) LLQ abdominal pain (Acute) Low back pain (Acute) Nonspecific ST-T wave electrocardiographic changes (Acute) Osteoarthritis (arthritis due to wear and tear of joints) (Chronic) Rectal polyp (Acute) Smoker unmotivated to quit (Resolved) Suspected COVID-19 virus infection (Inactive) Tetrahydrocannabinol (THC) use disorder, moderate, dependence (Acute) Thrombocytopenia (Chronic) Tobacco use disorder (Acute) Transaminitis (Acute) Urinary incontinence (Acute) Urinary urgency (Acute 08/14/17) Surgical History History of foot surgery (Acute) Hx of colonoscopy (Chronic) Hx of esophagogastroduodenoscopy (Chronic) Family History Sister Anxiety Depression Father Cancer Social History Smoking/Tobacco Use Status: Current every day Tobacco Type: cigarettes Smoking packs per day: 1.5 Smoking cigarettes per day: 30.0 Alcohol Intake: current Alcohol Intake frequency: 3 or more drinks per day Alcohol type: beer Drug use: Daily Substance use type: marijuana Details: No IV Drug Use Adopted: No Caregiver/Support person: No Foster care: No Household members: none Housing: house Do you need help understanding health information?: Often current occupation: Unemployed Sexually active: No Do you think of yourself as: straight/heterosexual Current gender identity: male Do you feel safe at home: Yes Do you feel safe in your relationship?: Yes
--- NOTE | 2020-02-29 15:04 | NUR.NOTE ---
at 12:30 pt got very aggressive and want to leave AMA. Claribel RESPIRATORY SCIENTIST and RN educated pt on the implications of leaving against medical advise. Despite pt knowing that he would have been discharged after completion of magnesium, pt could not be persuaded. IV magnesium stop, ARNOLDO was removed. pt left unit at 13:00
--- NOTE | 2020-02-29 15:06 | PDOC.CMPRO ---
Care Management Progress Note Alton left AMA. M/S paged this conventional underwriter, who was unable to respond in a timely enough manner to discuss and provide FWW upon departure. Dr. Ontiveros reported she would order VNA supports for Alton, in hopes of avoiding his re-admission and provide additional supports for him in the community.
--- NOTE | 2020-02-29 15:33 | PDOC.HHF2F_ITS ---
Home Health Certification Home Health Certification: 1. Encounter Date and Reason I certify that NAVARRO KRISHNA was seen by Laila Ontiveros on 02/29/20 and that I had a [id number] encounter with this patient that meets the physician face to face encounter requirements. 2. Clinical Findings Supporting Skilled Need and Homebound Status I certify that home health services are medically necessary, include either intermittent fci and/or physical/speech therapy, and that this patient is homebound in that absences from the home require considerable and taxing effort and are infrequent or of short duration, or are attributable to the need to receive medical care. [X] (a) Attached documentation from encounter provides clinical findings supporting skilled need and homebound status (including what assistance patient requires to leave the home). The encounter with the patient was in whole, or in part, for the following medical condition, which is the primary reason for home health care: GI BLEED,SEPSIS,R/O COVID 19 Long-Term: patient with alcoholic gastritis, anemia, hypokalemia, hypomagnesemia. Needs medication assessment/teaching. Needs CBC, BMP, magnesium to be drawn on on 03/09/2020, results to be sent to Dr Black Physical Therapy: eval and treat ASSISTANT CLINICAL DIRECTOR: assess for needs in the community Homebound: unable to leave home without assistance 3. Certification and Authentication I certify that I composed the above information based on my clinical judgement relating to this patient's medical condition and, if applicable, clinical findings communicated to me by the NPP or inpatient physician who performed the Home Health Referral. All further orders will be obtained through Dr Black (Community Based Physician - PCP)
== END 2020-02-29 12:49 | disposition left against medical advice (07) | DRG 377 ==
LOC: ER 23:26 → RCU 02-23 01:54 → ICU 03-02 10:07 → MS 03-02 10:07
PROVIDERS: Family Medicine; Internal Medicine; Nurse Anesthetist, Certified Registered; Physician Assistant; Surgery; Admitting Provider Internal Medicine; Emergency Provider Student in an Organized Health Care Education/Training Program; PCP Family Medicine; Visit Provider Internal Medicine
PROC: 0DJ68ZZ Inspection of Stomach, Via Natural or Artificial Opening Endoscopic (ICD-10-PCS; CPT 43235; principal; 2020-02-24 11:30)
DX: K29.61 Other gastritis with bleeding (principal); R57.8 Other shock; R57.1 Hypovolemic shock; D62 Acute posthemorrhagic anemia; F10.239 Alcohol dependence with withdrawal, unspecified; R18.8 Other ascites; Z53.29 Procedure and treatment not carried out because of patient's decision for other reasons; R00.0 Tachycardia, unspecified; R50.9 Fever, unspecified; K21.0 Gastro-esophageal reflux disease with esophagitis; K31.89 Other diseases of stomach and duodenum; D50.9 Iron deficiency anemia, unspecified; E87.6 Hypokalemia; E83.42 Hypomagnesemia; Y90.4 Blood alcohol level of 80-99 mg/100 ml; J44.9 Chronic obstructive pulmonary disease, unspecified; R29.6 Repeated falls; R15.9 Full incontinence of feces; S42.001A Fracture of unspecified part of right clavicle, initial encounter for closed fracture; K70.0 Alcoholic fatty liver; K22.70 Barrett's esophagus without dysplasia; X58.XXXA Exposure to other specified factors, initial encounter; F17.210 Nicotine dependence, cigarettes, uncomplicated; R25.1 Tremor, unspecified; Z71.3 Dietary counseling and surveillance
CPT/HCPCS: 43239; 43255; 36415; 36430; 36556; 36592; 51702; 71275; 74177; 77001; 80048; 80053; 80307; 82550; 83690; 84145; 85027; 86850; 86900; 86901; 86920; 87040; 87505; 88305; 93005; 94640; 96365; 96366; 96367; 96368; 97110; 97162; 97530; 99223; 99231; 99232; 99233; 99239; 99291; NC; U0003; 80202; 80320; 81003; 81015; 83540; 83550; 83605; 83735; 84100; 84132; 84484; 85014; 85018; 85025; 85610; 85730; 87324; 93010; 94002; J0131; J1200; J1756; J2001; J2060; J2270; J2354; J2370; J2543; J3370; J3475; J3480; J3490; P9016

== ENCOUNTER 2020-03-24 03:11 | Outpatient (CLI) | payer MEDICAID, SELFPAY ==
[2020-03-24 12:08] LABS: Anion Gap 8.3 mmol/L (3-11); BUN 4 mg/dL (7-18); CO2 30.7 mmol/L (21.0-32.0); CREATININE 0.62 mg/dL (0.70-1.30); Calcium 8.7 mg/dL (8.5-10.1); Chloride 104 mmol/L (98-107); Glucose 110 mg/dL (74-106); Magnesium 1.5 mg/dL (1.8-2.4); Potassium 3.5 mmol/L (3.5-5.1); Sodium 143 mmol/L (136-145)
== END 2020-03-24 03:31 ==
PROVIDERS: PCP Family Medicine; Visit Provider Family Medicine
DX: E83.42 Hypomagnesemia (principal); E87.6 Hypokalemia
CPT/HCPCS: 36415; 80048; 83735

== ENCOUNTER 2020-04-27 10:41 | Outpatient (REF) | payer MEDICAID, SELFPAY ==
[2020-04-27 19:02] LABS: Abs Immature Grans 0.02 k/cumm (0.0-0.09); Absolute Basophil Count 0.03 k/cumm (0.0-0.2); Absolute Lymphocyte Count 0.54 k/cumm (1.2-3.4); Absolute Monocyte Count 0.91 k/cumm (0.11-0.7); Absolute Neutrophil Count 6.78 k/cumm (1.2-6.7); Basophils % 0.4; HCT 38.8 % (40.0-50.0); HGB 12.1 g/dL (13.5-17.5); Immature Grans % 0.2 %; Lymphocytes % 6.5; Mean Corp. HGB Concentration 31.2 g/dL (32.0-36.0); Mean Corpuscular Hemoglobin 27.5 pg (27.0-33.0); Mean Corpuscular Volume 88.2 fL (80-95); Mean Platelet Volume 10.3 fL (8.0-11.0); Neutrophils % 81.9; Platelet Count 190 x1000/uL (130-400); RBC Distribution Width 17.5 % (11.8-14.1); White Blood Cell Count 8.28 k/cumm (4.4-10.8)
[2020-04-27 19:25] LABS: ALT 53 U/L (16-63); AST 180 U/L (15-37); Albumin 3.1 g/dL (3.4-5.0); Alkaline Phosphatase 90 U/L (46-116); BUN 4 mg/dL (7-18); Bilirubin, Total 1.3 mg/dL (0.2-1.0); CREATININE 0.65 mg/dL (0.70-1.30); Calcium 8.7 mg/dL (8.5-10.1); Chloride 99 mmol/L (98-107); Glucose 164 mg/dL (74-106); Potassium 3.7 mmol/L (3.5-5.1); Sodium 140 mmol/L (136-145); Total Protein 6.7 g/dL (6.4-8.2)
== END 2020-04-27 11:01 ==
LOC: LBO 10:41
PROVIDERS: PCP Family Medicine; Visit Provider Family Medicine
DX: K70.0 Alcoholic fatty liver (principal); K29.60 Other gastritis without bleeding
CPT/HCPCS: 80053; 85025

== ENCOUNTER 2020-05-06 08:26 | Outpatient (CLI) | payer MEDICAID, SELFPAY ==
--- NOTE | 2020-05-06 07:00 | DI.US_ITS ---
EXAM: US ABDOMEN CLINICAL HISTORY: Known liver disease, acute bili elevation, alcohol induced TECHNIQUE: Ultrasound abdomen performed using standard protocol. COMPARISON: CT CT CHEST PE ABD PELVIS W from 02/22/2020 FINDINGS: ABDOMINAL AORTA AND IVC: Visualized portions normal caliber. PANCREAS: Normal where visualized. LIVER: Diffuse increased echogenicity of the liver consistent with fatty infiltration. Mild hepatome abdirizak. Hepatopedal flow in the Portal Vein. GALLBLADDER: No evidence of cholelithiasis. No evidence of wall thickening. No pericholecystic fluid identified. BILIARY SYSTEM: Common bile duct measures 4.6 mm. No intrahepatic biliary ductal dilation. MACKENZIE'S SIGN: Negative. KIDNEYS: Kidneys are symmetric in size. No evidence of renal calculi. No evidence of hydronephrosis. No renal mass or cyst identified. SPLEEN: Not enlarged. ASCITES: None seen. IMPRESSION: Mild hepatomegaly and hepatic steatosis. DATA REPOSITORY:
== END 2020-05-06 08:46 ==
PROVIDERS: PCP Family Medicine; Visit Provider Family Medicine
DX: K70.0 Alcoholic fatty liver (principal); R16.0 Hepatomegaly, not elsewhere classified; K76.0 Fatty (change of) liver, not elsewhere classified
CPT/HCPCS: 76700

== ENCOUNTER 2020-05-15 10:35 | Observation (INO) | payer MEDICAID, SELFPAY ==
[2020-05-15] VITALS (18 sets, daily range): BP systolic 86–106; BP diastolic 57–72; PULSE 84–103; RESP 13–18; TEMP 37–37.2; O2SAT 95–100
--- NOTE | 2020-05-15 10:39 | ED.GENADUL_ITS ---
Discharge Plan Disposition Patient Disposition: [facility] INPATIENT Condition: Stable Discharge Details Chief Complaint: GenMedical Clinical Impression: Failure to thrive, Ambulatory dysfunction, Bilateral leg pain, Alcohol abuse, Hypokalemia Admit Date/Time: 05/15/20 13:11 Admit Provider: Laila Ontiveros Attending Provider: Laila Ontiveros Primary Care Provider: Jonathan Black ED Provider: Sona Cardoso Discharge Data Discharge Date/Time-TO BE ENTERED AT DEPARTURE: 05/15/20 14:12 Medical Decision Making 1050 -- 60-year-old male with a history of chronic alcoholism, fatty liver, COPD, anxiety, depression, gastritis, GI bleed presents for generalized weakness, decreased appetite, weight loss, bilateral leg pain worse on right side over the past few weeks, worse over the past few days. Blood pressure soft, 95/67. He appears dehydrated and deconditioned but nontoxic. EKG notes a rate of 89, sinus, no acute ST ischemic changes. Patient appears generally weak but without focal deficits. He has soiled undergarments on. Suspect most likely failure to thrive but also consider neuropathy associated with chronic alcoholism, electrolyte abnormality, arrhythmia, UTI, pneumonia, neoplasm. Will place an IV, bolus IV fluids, screening labs, urinalysis, CT head/cervical spine/chest/abdomen/pelvis. Do not suspect patient will be able to be discharged home and will admit for observation and physical therapy. Of note, patient was admitted here 3 months ago for hemorrhagic shock due to GI bleed requiring 3 units PRBC transfusion and left AMA on that admission. 1300 -- Labs and imaging reviewed. Potassium 2.5. Magnesium 1.5. Troponin negative. Urinalysis negative. Imaging negative for acute findings. Case discussed with care management regarding patient disposition. Case discussed with hospitalist who accepts patient for admission. Medical Records Medical records reviewed: Yes I reviewed the patient's medical records. Imaging Data Radiologic Study: Radiologist's impression: CT HEAD CERVICAL SPINE WO CLINICAL HISTORY: weakness, dizziness, r/o acute process. TECHNIQUE: Imaging Protocol: Axial computed tomography images with coronal and sagittal reformatted images were created and reviewed COMPARISON: CT CT CHEST W from 11/28/2019 CR,XR XR LINE PLACEMENT PICC/CVA from 02/22/2020 FINDINGS: Head CT Ventricles and Extra axial spaces: Normal in size and morphology for the patient's age. Hemorrhage: None. Cerebral parenchyma: Mild atrophy Midline shift: None. Brainstem/Cerebellum: Normal. Calvarium: Normal. Visualized Paranasal sinuses/Mastoids: Clear. Cervical Spine CT BONES: Vertebral body heights are maintained. Intervertebral disc spaces are normal. Alignment is normal. There is no evidence of acute cervical spine fracture. There is a subacute appearing fracture of the head of the right clavi richie. SOFT TISSUES: No paraspinal hematoma. The airway appears intact. Emphysematous changes are noted at the lung apices. Degenerative disc changes and facet degenerative changes are seen . IMPRESSION: No acute abnormality in the head. No acute cervical spine fracture. Subacute or old fracture of the head of the right clavicle.. Degenerative changes, no acute abnormality. CT CHEST/ABD/PEL W CLINICAL HISTORY: weight loss, weakness, r/o acute disease. TECHNIQUE: Imaging Protocol: Axial computed tomography images with coronal and sagittal reformatted images were created and reviewed CONTRAST MATERIAL: Intravenous: Omnipaque 350 Contrast volume:100 ml Oral: no COMPARISON: CT ABD PELVIS WITH CONTRAST from 07/30/[address] CHEST PE ABD PELVIS W from 02/22/2020 FINDINGS: CHEST: Tracheobronchial tree: Patent where visualized. Mediastinum and Rosa: No dominant adenopathy or fluid collection. Pulmonary parenchyma: No consolidation or dominant measurable mass. Emphysematous changes greater in the upper lobes. Pleura: No effusion or pneumothorax. Lymph nodes: Within normal limits. Aorta: Thoracic portion non-dilated. Mild calcifications Heart: Normal size. Coronary artery calcifications are noted. Bones: Subacute appearing fracture of the head of the right clavicle. Subacute fractures of the anterolateral right 2nd and 3rd ribs. No acute rib or spine fracture.. ABDOMEN: Liver: Enlarged fatty liver. No measurable mass. Gallbladder and biliary tract: No radiodense calculus or dilation. Pancreas: Normal density, no abnormal calcifications or inflammatory process. Spleen: Normal. Kidneys: Normal size, contour and axis. No radiodense stones or obstructive uropathy. No masses seen. Adrenal glands: No masses seen. Aorta: Abdominal portion non-dilated. Lymph nodes: Within normal limits. PELVIS: Bladder: Symmetric distention, no gross wall thickening. Bowel: No obstruction or bowel wall thickening. Sigmoid diverticulosis. No evidence of diverticulitis. Normal appendix. Stool in the rectum. The colon is otherwise nearly empty of stool. Peritoneal cavity: No ascites, collection or mesenteric inflammatory response. Bones: Mild degenerative disc changes Tarlov cyst the mid sacrum, stable in appearance when compared with 2014... Reproductive organs: Prostate calcifications. IMPRESSION: No acute abnormality is seen in the chest abdomen or pelvis. Incidental findings as mentioned above. US EXTREMITY VENOUS BI CLINICAL HISTORY: b/l leg pain, worse on R, r/o dvt. TECHNIQUE: Bilateral lower extremity venous ultrasound performed using grayscale, color-flow, and spectral Doppler analysis. COMPARISON: No exams were available for comparison FINDINGS: The bilateral common femoral, femoral and popliteal veins demonstrate normal compressibility, augmentation, and color Doppler. The posterior tibial veins are patent. No superficial thrombophlebitis or Coppola's cyst is seen. Subcutaneous edema is noted in both ankles. IMPRESSION: Right: Negative for DVT Left: Negative for DVT Lab Data Lab results reviewed: Yes I reviewed the patient's lab results. Labs: Laboratory Tests Range/Units 05/15/20 05/15/20 05/15/20 11:01 11:01 11:01 WBC (4.4-10.8) k/cumm RBC (4.50-6.00) m/cumm Hgb (13.5-17.5) g/dL Hct (40.0-50.0) % MCV (80-95) fL MCH (27.0-33.0) pg MCHC (32.0-36.0) g/dL RDW (11.8-14.1) % Plt Count (130-400) x1000/uL MPV (8.0-11.0) fL Immature Gran % % Neutrophils % Lymphocytes % Monocytes % Eosinophils % Basophils % Absolute Neutrophils (1.2-6.7) k/cumm Absolute Lymphocytes (1.2-3.4) k/cumm Absolute Monocytes (0.11-0.7) k/cumm Absolute Eosinophils (0.0-0.7) k/cumm Absolute Basophils (0.0-0.2) k/cumm PT (9.3-11.0) sec 11.6 H INR (0.9-1.1) 1.2 H APTT (21.0-31.4) sec 25.9 Sodium (136-145) mmol/L 135 L Potassium (3.5-5.1) mmol/L 2.5 L* Chloride (98-107) mmol/L 95 L Carbon Dioxide (21.0-32.0) mmol/L 33.3 H Anion Gap (3-11) mmol/L 6.7 BUN (7-18) mg/dL 3 L Creatinine (0.70-1.30) mg/dL 0.47 L Estimated GFR/1.73 m2 (mL/min/1.73m2) >= 60.00 Glucose (74-106) mg/dL 103 Calcium (8.5-10.1) mg/dL 8.0 L Magnesium (1.8-2.4) mg/dL 1.5 L Total Bilirubin (0.2-1.0) mg/dL 1.0 AST (15-37) U/L 71 H ALT (16-63) U/L 36 Alkaline Phosphatase (46-116) U/L 58 Troponin I (<0.06) ng/mL < 0.05 Total Protein (6.4-8.2) g/dL 6.1 L Albumin (3.4-5.0) g/dL 2.6 L Lipase (73-393) U/L 147 Range/Units 05/15/20 11:01 WBC (4.4-10.8) k/cumm 8.05 RBC (4.50-6.00) m/cumm 3.85 L Hgb (13.5-17.5) g/dL 10.8 L Hct (40.0-50.0) % 33.1 L MCV (80-95) fL 86.0 MCH (27.0-33.0) pg 28.1 MCHC (32.0-36.0) g/dL 32.6 RDW (11.8-14.1) % 17.2 H Plt Count (130-400) x1000/uL 254 MPV (8.0-11.0) fL 9.5 Immature Gran % % 0.4 Neutrophils % 79.8 Lymphocytes % 9.3 Monocytes % 9.9 Eosinophils % 0.2 Basophils % 0.4 Absolute Neutrophils (1.2-6.7) k/cumm 6.42 Absolute Lymphocytes (1.2-3.4) k/cumm 0.75 L Absolute Monocytes (0.11-0.7) k/cumm 0.80 H Absolute Eosinophils (0.0-0.7) k/cumm 0.02 Absolute Basophils (0.0-0.2) k/cumm 0.03 PT (9.3-11.0) sec INR (0.9-1.1) APTT (21.0-31.4) sec Sodium (136-145) mmol/L Potassium (3.5-5.1) mmol/L Chloride (98-107) mmol/L Carbon Dioxide (21.0-32.0) mmol/L Anion Gap (3-11) mmol/L BUN (7-18) mg/dL Creatinine (0.70-1.30) mg/dL Estimated GFR/1.73 m2 (mL/min/1.73m2) Glucose (74-106) mg/dL Calcium (8.5-10.1) mg/dL Magnesium (1.8-2.4) mg/dL Total Bilirubin (0.2-1.0) mg/dL AST (15-37) U/L ALT (16-63) U/L Alkaline Phosphatase (46-116) U/L Troponin I (<0.06) ng/mL Total Protein (6.4-8.2) g/dL Albumin (3.4-5.0) g/dL Lipase (73-393) U/L ECG Data Attestation: I personally reviewed and interpreted this ECG (s) as follows: Interpretation: Rate of 89, sinus, no acute ST elevation or depression. CO 125. QRS 84. QTc 490. HPI General Mode of arrival: ambulatory . Date/Time Provider Initiated Documentation: 05/15/20 10:35 . Limitations to Documentation: no limitations . Information obtained by: patient . HPI Narrative: Patient is a 60-year-old male with a history of chronic alcoholism, COPD, GERD, GI bleed, gastritis who presents for generalized weakness, decreased appetite, weight loss, bilateral leg pain, worse on right side for the past few weeks, worse over the past few da ys. Patient was seen by PCP office this morning for these complaints and sent to the ER for further evaluation. Patient lives alone in a trailer and states he has been unable to get around due to his weakness. He states a few days ago he had to crawl up the stairs in his trailer. He states he has pain in both legs, particularly the feet and worse on the right side. He denies any recent injury or falls. He admits to occasional dizziness when upright. He states he has not had much of an appetite over the last few weeks and states he has lost 6 pounds in the last week. He drinks 2-3 alcoholic drinks daily and smokes tobacco. He denies any drug use. Patient was admitted here 3 months ago for GI bleed and left AMA from the floor. He states his last drink was yesterday early afternoon. Related Data Home Medications Medication Instructions Recorded Confirmed Therapeutic-M 1 tab PO DAILY #30 tab 12/12/17 05/15/20 ferrous gluconate 324 mg (37.5 mg 324 mg PO DAILY 01/23/20 05/15/20 iron) tablet albuterol sulfate 90 mcg/actuation 2 puff INHALATION Q4H PRN #18 gm 02/14/20 05/15/20 aerosol inhaler tiotropium bromide 18 mcg capsule 1 cap INHALATION DAILY #60 inh 02/14/20 05/15/20 with inhalation device magnesium oxide 400 mg PO DAILY #14 tab 02/29/20 05/15/20 sucralfate [Carafate] 1 gm PO QACHS #120 tab 02/29/20 05/15/20 thiamine HCl (vitamin B1) 100 mg PO DAILY #30 tab 02/29/20 05/15/20 pantoprazole 40 mg tablet,delayed 40 mg PO BID #60 tab 03/04/20 05/15/20 release furosemide 20 mg tablet 20 mg PO DAILY #90 tab 05/14/20 05/15/20 Previous Rx's Medication Instructions Recorded Therapeutic-M 1 tab PO DAILY #30 tab 12/12/17 albuterol sulfate 90 mcg/actuation 2 puff INHALATION Q4H PRN #18 gm 02/14/20 aerosol inhaler tiotropium bromide 18 mcg capsule 1 cap INHALATION DAILY #60 inh 02/14/20 with inhalation device magnesium oxide 400 mg PO DAILY #14 tab 02/29/20 sucralfate [Carafate] 1 gm PO QACHS #120 tab 02/29/20 thiamine HCl (vitamin B1) 100 mg PO DAILY #30 tab 02/29/20 pantoprazole 40 mg tablet,delayed 40 mg PO BID #60 tab 03/04/20 release furosemide 20 mg tablet 20 mg PO DAILY #90 tab 05/14/20 Allergies Allergy/AdvReac Type Severity Reaction Status Date / Time No Known Allergies Allergy Unverified 05/15/20 10:46 General YOGI: 2 Review of Systems All systems reviewed & are unremarkable except as noted in HPI and below Constitutional Constitutional: Reports as per HPI, Denies chills, Denies fever(s) and Reports weakness Eyes Eyes: Denies blurry vision ENT Ears, Nose, Mouth, and Throat: Reports dizziness, Denies sore throat and Denies throat swelling Cardiovascular Cardiovascular: Denies chest pain and Denies dyspnea Respiratory Respiratory: Denies cough and Denies dyspnea Gastrointestinal Gastrointestinal: Denies abdominal pain, Denies diarrhea and Denies vomiting Genitourinary Genitourinary: Denies hematuria and Denies dysuria Musculoskeletal Musculoskeletal: Denies back pain, Denies numbness and Reports other (b/l leg pain, worse in feet and particularly R foot) Integumentary/Breasts Skin/Breast: Denies lesions and Denies rash Neurologic Neurologic: Reports dizziness, Denies localized weakness, Denies numbness and Reports weakness Allergic/Immunologic Allergic/Immunologic: Denies throat swelling [facility] Medical History (Updated 05/15/20 @ 16:51 by Sona Cardoso DO) Abnormal abdominal CT scan (Inactive) Alcohol induced fatty liver (Acute) Alcohol use disorder (Acute) Alcohol use disorder (Acute) Anemia, iron deficiency (Acute) Arthritis (Acute) Atherosclerosis of abdominal aorta (Acute) Hopson's esophagus determined by endoscopy (Acute) Barretts esophagus (Acute) Bone spur of foot (Acute) Chronic iron deficiency anemia (Acute) COPD (chronic obstructive pulmonary disease) (Chronic) DDD (degenerative disc disease) (Acute) Dehydration (Resolved) Dehydration, mild (Resolved) Depression (Chronic) Depression with anxiety (Acute) Diverticulosis (Acute) Erosive gastritis (Acute) Erosive gastritis (Acute) Esophageal reflux (Acute) Essential tremor (Acute) Fatty liver (Acute) Gastroenteritis (Resolved) Hematemesis (Resolved) Hepatitis A (Acute) Hyperlipemia (Acute) Hypokalemia due to excessive gastrointestinal loss of potassium (Resolved) Hypomagnesemia (Acute) Insomnia (Acute) Left knee pain (Acute) LLQ abdominal pain (Acute) Low back pain (Acute) Lower extremity edema (Acute) Nonspecific ST-T wave electrocardiographic changes (Acute) Osteoarthritis (arthritis due to wear and tear of joints) (Chronic) Rectal polyp (Acute) Smoker unmotivated to quit (Resolved) Suspected COVID-19 virus infection (Inactive) Tetrahydrocannabinol (THC) use disorder, moderate, dependence (Acute) Thrombocytopenia (Chronic) Tobacco use disorder (Acute) Transaminitis (Acute) Urinary incontinence (Acute) Urinary urgency (Acute 08/14/17) Surgical History History of foot surgery (Acute) Hx of colonoscopy (Chronic) Hx of esophagogastroduodenoscopy (Chronic) Social History Smoking/Tobacco Use Status: Current every day Tobacco Type: cigarettes Smoking packs per day: 1.5 Smoking cigarettes per day: 30.0 Alcohol Intake: current Alcohol Intake frequency: 3 or more drinks per day Alcohol type: beer Drug use: Daily Substance use type: marijuana Details: No IV Drug Use Adopted: No Caregiver/Support person: No Foster care: No Household members: none Housing: house Do you need help understanding health information?: Often current occupation: Unemployed Sexually active: No Do you think of yourself as: straight/heterosexual Current gender identity: male Do you feel safe at home: Yes Do you feel safe in your relationship?: Yes Exam Const General: cooperative, no acute distress, disheveled and ill appearing chronically HENMT Head: normal to inspection Ears: hearing grossly normal bilaterally and external ears normal Face and sinus: normal facial exam Mouth: mucous membranes dry Eyes General: appearance normal, both eyes and all related structures Pupils: PERRL EOM: EOM intact bilaterally Neck Neck: normal visual inspection and No submandibular swelling Lymphatic: no lymphadenopathy noted Chest Chest: normal inspection of the chest and no tenderness Resp Effort & Inspection: normal respiratory effort and able to speak in complete sentences Auscultation: clear to auscultation bilaterally Cardio Rate: regular rate Rhythm: regular rhythm GI Inspection: normal to inspection Palpation: soft, not firm, not rigid and nontender Auscultation: normal bowel sounds Male General Exam: Yes normal external exam Back/Spine/Pelvis Thoracic/Lumbar Spine: No thoracic spinal tenderness, No lumbar spinal tenderness and other (Healing abrasion to midline lumbar spine. Nontender.) Pelvis: no pain with anterior-posterior compression Skin General skin exam: no rashes or lesions noted Neuro General: patient alert, patient awake and patient oriented x3 Cranial Nerves: CN's II-XI intact bilaterally Cognition: normal cognition Speech: speech normal Motor: muscle tone normal throughout, strength 5/5 throughout and other (Able to lift both legs but significantly slowed and appears generally weak.) Sensory Exam: no sensory deficits noted Extrem General: normal to inspection, full ROM, capillary refill normal, no calf tenderness bilaterally and no edema Psych Appearance: grossly normal Mental Status: mental status grossly normal Speech and Movement: speech and movement normal Affect: normal affect
--- NOTE | 2020-05-15 11:00 | RT.EKG_ITS ---
APPROVED REPORT Exam: Resting ECG Patient Location: E HR:89 bpm ECG Measurements Heart Rate 89 AXIS KS 125 P 80 QRSd 84 QRS -23 QT 402 T 67 QTc 490 <Conclusion> Sinus rhythm...normal P axis, V-rate 60- 99 Ventricular premature complex...V complex w/ short R-R interval Low voltage, extremity leads...all extremity leads <0.5mV. No acute ST ischemic findings. I have reviewed and interpreted ECG and agree with software generated interpretation.
--- NOTE | 2020-05-15 11:00 | DI.CT_ITS ---
EXAM: CT HEAD CERVICAL SPINE WO CLINICAL HISTORY: weakness, dizziness, r/o acute process. TECHNIQUE: Imaging Protocol: Axial computed tomography images with coronal and sagittal reformatted images were created and reviewed COMPARISON: CT CT CHEST W from 11/28/2019 CR,XR XR LINE PLACEMENT PICC/CVA from 02/22/2020 FINDINGS: Head CT Ventricles and Extra axial spaces: Normal in size and morphology for the patient's age. Hemorrhage: None. Cerebral parenchyma: Mild atrophy Midline shift: None. Brainstem/Cerebellum: Normal. Calvarium: Normal. Visualized Paranasal sinuses/Mastoids: Clear. Cervical Spine CT BONES: Vertebral body heights are maintained. Intervertebral disc spaces are normal. Alignment is nor mal. There is no evidence of acute cervical spine fracture. There is a subacute appearing fracture o f the head of the right clavicle. SOFT TISSUES: No paraspinal hematoma. The airway appears intact. Emphysematous changes are noted at the lung apices. Degenerative disc changes and facet degenerative changes are seen . IMPRESSION: No acute abnormality in the head. No acute cervical spine fracture. Subacute or old fracture of the head of the right clavicle.. Degenerative changes, no acute abnormality. RADIATION DOSE DELIVERED: 1,325.07mGy.cm Total DLP DATA REPOSITORY: All CT scans at this facility are submitted to the National Radiology Data Registry (NRDR) Dose Index Registry (DIR) with the [employer] ([employer]). RADIATION OPTIMIZATION: All CT scans at this facility use at least one of these dose optimization te chniques: automated exposure control; mA and/or kV adjustment per patient size (includes targeted exa ms where dose is matched to clinical indication); or iterative reconstruction.
--- NOTE | 2020-05-15 11:00 | DI.US_ITS ---
EXAM: US EXTREMITY VENOUS BI CLINICAL HISTORY: b/l leg pain, worse on R, r/o dvt. TECHNIQUE: Bilateral lower extremity venous ultrasound performed using grayscale, color-flow, and sp ectral Doppler analysis. COMPARISON: No exams were available for comparison FINDINGS: The bilateral common femoral, femoral and popliteal veins demonstrate normal compressibility, augment ation, and color Doppler. The posterior tibial veins are patent. No superficial thrombophlebitis or Coppola's cyst is seen. Subcutaneous edema is noted in both ankles. IMPRESSION: Right: Negative for DVT Left: Negative for DVT DATA REPOSITORY:
--- NOTE | 2020-05-15 11:00 | DI.CT_ITS ---
EXAM: CT CHEST/ABD/PEL W CLINICAL HISTORY: weight loss, weakness, r/o acute disease. TECHNIQUE: Imaging Protocol: Axial computed tomography images with coronal and sagittal reformatted images were created and reviewed CONTRAST MATERIAL: Intravenous: Omnipaque 350 Contrast volume:100 ml Oral: no COMPARISON: CT ABD PELVIS WITH CONTRAST from 07/30/[address] CHEST PE ABD PELVIS W from 02/22/2020 FINDINGS: CHEST: Tracheobronchial tree: Patent where visualized. Mediastinum and Rosa: No dominant adenopathy or fluid collection. Pulmonary parenchyma: No consolidation or dominant measurable mass. Emphysematous changes greater in the upper lobes. Pleura: No effusion or pneumothorax. Lymph nodes: Within normal limits. Aorta: Thoracic portion non-dilated. Mild calcifications Heart: Normal size. Coronary artery calcifications are noted. Bones: Subacute appearing fracture of the head of the right clavicle. Subacute fractures of the ante rolateral right 2nd and 3rd ribs. No acute rib or spine fracture.. ABDOMEN: Liver: Enlarged fatty liver. No measurable mass. Gallbladder and biliary tract: No radiodense calculus or dilation. Pancreas: Normal density, no abnormal calcifications or inflammatory process. Spleen: Normal. Kidneys: Normal size, contour and axis. No radiodense stones or obstructive uropathy. No masses seen. Adrenal glands: No masses seen. Aorta: Abdominal portion non-dilated. Lymph nodes: Within normal limits. PELVIS: Bladder: Symmetric distention, no gross wall thickening. Bowel: No obstruction or bowel wall thickening. Sigmoid diverticulosis. No evidence of diverticuliti s. Normal appendix. Stool in the rectum. The colon is otherwise nearly empty of stool. Peritoneal cavity: No ascites, collection or mesenteric inflammatory response. Bones: Mild degenerative disc changes Tarlov cyst the mid sacrum, stable in appearance when compared with 2013... Reproductive organs: Prostate calcifications. IMPRESSION: No acute abnormality is seen in the chest abdomen or pelvis. Incidental findings as mentioned above. . RADIATION DOSE DELIVERED: 774.89mGy.cm Total DLP DATA REPOSITORY: All CT scans at this facility are submitted to the National Radiology Data Registry (NRDR) Dose Index Registry (DIR) with the [employer] (ACR). RADIATION OPTIMIZATION: All CT scans at this facility use at least one of these dose optimization te chniques: automated exposure control; mA and/or kV adjustment per patient size (includes targeted exa ms where dose is matched to clinical indication); or iterative reconstruction.
[2020-05-15 11:15] LABS: Abs Immature Grans 0.03 k/cumm (0.0-0.09); Absolute Basophil Count 0.03 k/cumm (0.0-0.2); Absolute Eosinophil Count 0.02 k/cumm (0.0-0.7); Absolute Lymphocyte Count 0.75 k/cumm (1.2-3.4); Absolute Neutrophil Count 6.42 k/cumm (1.2-6.7); Basophils % 0.4; Eosinophils % 0.2; HCT 33.1 % (40.0-50.0); HGB 10.8 g/dL (13.5-17.5); Immature Grans % 0.4 %; Lymphocytes % 9.3; Mean Corp. HGB Concentration 32.6 g/dL (32.0-36.0); Mean Corpuscular Hemoglobin 28.1 pg (27.0-33.0); Mean Platelet Volume 9.5 fL (8.0-11.0); Monocytes % 9.9; Neutrophils % 79.8; Platelet Count 254 x1000/uL (130-400); RBC 3.85 m/cumm (4.50-6.00); RBC Distribution Width 17.2 % (11.8-14.1); White Blood Cell Count 8.05 k/cumm (4.4-10.8)
[2020-05-15] MEDS: Omnipaque 350 MG/ML 100 ML BTL IJ (11:21)
[2020-05-15] MEDS: Normal Saline 500 ML IV (11:21)
[2020-05-15 11:22] LABS: Lipase 147 U/L (73-393)
--- NOTE | 2020-05-15 11:25 | INITIAL_ITS ---
- If Service Date Differs Date of service: 05/15/20 Time of Service: 11:25 Care Management Initial Assess REASON FOR HOSPITALIZATION:: Generalized weakness and failure to thrive. PAST MEDICAL HISTORY/PAST SURGICAL HISTORY:: Medical History: Abnormal abdominal CT scan, Alcohol induced fatty liver, Alcohol use disorder, Arthritis, Atherosclerosis of abdominal aorta, Hopson's esophagus determined by endoscopy, Bone spur of foot, Chronic iron deficiency anemia, COPD (chronic obstructive pulmonary disease), DDD (degenerative disc disease), Dehydration, Depression with anxiety, Diverticulosis, Erosive gastritis, Esophageal reflux, Essential tremor, Fatty liver, Gastroenteritis, Hematemesis, Hepatitis A, Hyperlipemia, Hypokalemia due to excessive gastrointestinal loss of potassium, Hypomagnesemia,. Insomnia, Left knee pain, LLQ abdominal pain, Low back pain, Lower extremity edema,. Nonspecific ST-T wave electrocardiographic changes, Osteoarthritis (arthritis due to wear and tear of joints), Rectal polyp, Smoker unmotivated to quit, Suspected COVID-19 virus infection (Inactive), Tetrahydrocannabinol (THC) use disorder, moderate, dependence, Thrombocytopenia, Tobacco use disorder, Transaminitis,. Urinary incontinence, and Urinary urgency. Surgical History: History of foot surgery, Hx of colonoscopy, and Hx of esophagogastroduodenoscopy. PREVIOUS FUNCTIONAL STATUS/SOCIAL/FAMILY SUPPORTS:: Alton lives with his mother in [place], [place]. He states his mom splits her time between their home and that of his sister's, so he is frequently home alone. Alton is independent with ADLs, but states caring for himself has become increasingly more difficult because my legs don't work anymore. 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 He has been out of work for the past 3 years and is in the process of applying for disability related to his mental health and physical health. CURRENT FUNCTIONAL STATUS:: Alton is lying in bed when meets with him today. He shares a couple of nights ago, he fell to the floor at home and was on the floor for at least 30 minutes before he could get on his knees and pull himself up. He also reports eating very little and feeling increasingly weaker. inquires if he has any in-home services, as a referral was made for RN, PT and WOMEN'S MINISTRY DIRECTOR at his last admission in February of this year. Alton replies HH never called him and the only help he has at home is his mother, who comes by on a daily basis to give him his medications. CM followed up with HH to inquire as to the status of the February referral and was informed Alton refused services. CM will continue to follow. ADVANCE DIRECTIVES:: None on file. Has patient been provided with info about the portal/API?: Yes Did the patient sign up for the portal?: No CODE STATUS:: Full Code INSURANCE COVERAGE / FINANCIAL ISSUES:: Medicaid. CURRENT HOME/COMMUNITY SERVICES/EQUIPMENT:: Alton denies any home/community services and equipment. He previously received [facility] rehab assistance with SSDI. PRIMARY CARE PHYSICIAN:: Jonathan Black DO ([facility]) POTENTIAL DISCHARGE NEEDS:: Follow-up appointment with PCP and potential placeme nt, if patient is agreeable. PATIENT/FAMILY EDUCATION NEEDS:: Discharge instructions, limitations, follow-up plan of care, including Ask Me Three and self-management. ANTICIPATED BARRIERS TO DISCHARGE:: No anticipated barriers at this time. TRANSPORTATION:: To be determined depending on disposition. PLAN:: To be determined.
[2020-05-15 11:30] LABS: INR 1.2 (0.9-1.1); PTT Activated 25.9 sec (21.0-31.4); Prothrombin Time 11.6 sec (9.3-11.0)
[2020-05-15 11:32] LABS: ALT 36 U/L (16-63); AST 71 U/L (15-37); Albumin 2.6 g/dL (3.4-5.0); Alkaline Phosphatase 58 U/L (46-116); Anion Gap 6.7 mmol/L (3-11); BUN 3 mg/dL (7-18); CO2 33.3 mmol/L (21.0-32.0); CREATININE 0.47 mg/dL (0.70-1.30); Chloride 95 mmol/L (98-107); Glucose 103 mg/dL (74-106); Magnesium 1.5 mg/dL (1.8-2.4); Potassium 2.5 mmol/L (3.5-5.1); Sodium 135 mmol/L (136-145); Total Protein 6.1 g/dL (6.4-8.2); Troponin I < 0.05 ng/mL (<0.06)
[2020-05-15] MEDS: POTASSIUM CHLORIDE 20 MEQ/100 ML BAG 50 MEQ IVPB ×2 (12:52→16:11)
[2020-05-15] MEDS: Potassium Chloride 20 MEQ TABCR 40 MEQ PO ×2 (12:52→18:57)
[2020-05-15 13:37] LABS: Bilirubin Negative (Negative); Blood Negative (Negative); Clarity Clear (Clear); Glucose Negative (Negative); Ketones Negative (Negative); Leukocyte Esterase Negative (Negative); Nitrite Negative (Negative); Urobilinogen 0.2 EU/dL (Up TO 0.2); pH 7.5 (5-8)
[2020-05-15 14:09] LABS: *AMPHETAMINES SCREEN URINE Negative (Negative); *BARBITURATES SCREEN URINE Negative (Negative); *BENZODIAZEPINES SCREEN URINE Negative (Negative); Cannabinoids THC POSITIVE (Negative); Cocaine Screen,Urine Negative (Negative); METHADONE URINE SCREEN Negative (Negative); OPIATES URINE SCREEN Negative (Negative)
[2020-05-15 14:10] LABS: Tricyclic Antidepressants Negative (Negative)
[2020-05-15] MEDS: Normal Saline 1,000 ML 75 ML IV (16:05)
[2020-05-15] MEDS: THIAMINE 100 MG in Normal Saline 100 ML 200 MG IVPB (16:06)
--- NOTE | 2020-05-15 16:39 | W.PM.HP.N ---
Date of service: 05/15/20 Time of Service: 16:39 Assessment and Plan Assessment and plan (1) COPD (chronic obstructive pulmonary disease): Status: Chronic Assessment and plan: not oxygen dependent. Quite rhonchorous today on my exam - but this was before his inhalers. His chest imaging and procalcitonin are negative. I think he should be reassessed in am and, if still wheezing significantly, a steroid burst could be considered. COVID-19 is being ruled out, but clinically my suspision is minimal - patient is not a PUI. (2) Failure to thrive: Status: Chronic Assessment and plan: The patient cannot perform his ADLs - he is not able to feed himself, take his medications or, at this point, get to the bathroom. There is no obvious malignancy - and it is possible this is all due to alcoholism. Consult nutrition, PT, palliative care, check vitamin levels, replete lytes. I do not think this patient can safely live alone. (3) Hypomagnesemia: Status: Acute Assessment and plan: Replete and recheck in am (4) Hypokalemia: Status: Acute Assessment and plan: Replete and recheck in am (5) Unintentional weight loss: Status: Acute Assessment and plan: As above - no obvious malignancy. ?All due to alcoholism. Consult nutrition. (6) Ambulatory dysfunction: Status: Chronic Assessment and plan: Consult PT (7) Alcohol abuse: Status: Chronic Assessment and plan: Monitor on CIWA with vitamins. Check B12/folic acid levels (8) Chronic anemia: Status: Chronic Assessment and plan: with history of GI bleeding. Check hematest, iron studies, B12/folate. 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 Check B12 level. Consider neurontin. (10) DVT prophylaxis: Status: Acute Assessment and plan: TEDs/SCDs (11) Discharge planning issues: Status: Acute Assessment and plan: Full code. Consult palliative care. Disposition is an issue History of Present Illness History of Present Illness Chief Complaint: I couldn't walk Narrative: Mr Awad is a 60 year old male with PMHx of alcohol abuse, ambulatory dysfunction with frequent falls, GI Bleeding with hemorrhagic shock in the past, non-oxygen dependent COPD, as well as chronic anemia of iron deficiency, who was sent to the ED by his PCP for failure to thrive with weight loss and frequent falls. He has become essentially nonambulatory, relying on his mother to give him his medications. The patient states that this has been going for a long time, but did get worse in the last 2 weeks and especially today. He reports feeling like both of his legs are weak and that his right lower extremity is painful. He states the right ankle has been swollen, but that it had gone down. Denies trauma to RLE. He endorses urinary urgency, but denies urinary or fecal incontinence or dysuria. He also denies back pain. He has not seen any black stools - they have been brown. States appetite is poor and that he has been losing weight. He has lost about 10 kg since February of 2020. He told his PCP that he no longer drinks, but to me the patient states that his last drink was 2 days ago - and there is a small amount of alcohol detected in his toxicology today. He states that he does not have a history of alcohol withdrawal seizures and that his tremors are his chronic. He reports a chronic cough and shortness of breath, none of which are new. Sputum is white. Denies exposure to anyone with COVID-19, traveling out of state, fevers, runny nose, sore throat. He is wheezing and is requesting his inhaler. He states that inhalers always help and he does not feel like he has a cold right now. We do not know what medications the patient is taking - his mother does not know their names, and the list provided by his pharmacy indicates that all of his medications would have run out by now, and his latest lasix has not been picked up. Review of Systems All systems reviewed & are unremarkable except as noted in HPI and below [facility] Medical History (Updated 05/15/20 @ 19:01 by Laila Ontiveros MD) Abnormal abdominal CT scan (Inactive) Alcohol induced fatty liver (Acute) Alcohol use disorder (Acute) Alcohol use disorder (Acute) Anemia, iron deficiency (Acute) Arthritis (Acute) Atherosclerosis of abdominal aorta (Acute) Hopson's esophagus determined by endoscopy (Acute) Barretts esophagus (Acute) Bone spur of foot (Acute) Chronic iron deficiency anemia (Acute) COPD (chronic obstructive pulmonary disease) (Chronic) DDD (degenerative disc disease) (Acute) Dehydration (Resolved) Dehydration, mild (Resolved) Depression (Chronic) Depression with anxiety (Acute) Diverticulosis (Acute) Erosive gastritis (Acute) Erosive gastritis (Acute) Esophageal reflux (Acute) Essential tremor (Acute) Fatty liver (Acute) Gastroenteritis (Resolved) Hematemesis (Resolved) Hepatitis A (Acute) Hyperlipemia (Acute) Hypokalemia due to excessive gastrointestinal loss of potassium (Resolved) Hypomagnesemia (Acute) Insomnia (Acute) Left knee pain (Acute) LLQ abdominal pain (Acute) Low back pain (Acute) Lower extremity edema (Acute) Nonspecific ST-T wave electrocardiographic changes (Acute) Osteoarthritis (arthritis due to wear and tear of joints) (Chronic) Rectal polyp (Acute) Smoker unmotivated to quit (Resolved) Suspected COVID-19 virus infection (Inactive) Tetrahydrocannabinol (THC) use disorder, moderate, dependence (Acute) Thrombocytopenia (Chronic) Tobacco use disorder (Acute) Transaminitis (Acute) Urinary incontinence (Acute) Urinary urgency (Acute 08/14/17) Surgical History History of foot surgery (Acute) Hx of colonoscopy (Chronic) Hx of esophagogastroduodenoscopy (Chronic) Social History Smoking/Tobacco Use Status: Current every day Tobacco Type: cigarettes Smoking packs per day: 1.5 Smoking cigarettes per day: 30.0 Alcohol Intake: current Alcohol Intake frequency: 3 or more drinks per day Alcohol type: beer Drug use: Daily Substance use type: marijuana Details: No IV Drug Use Adopted: No Caregiver/Support person: No Foster care: No Household members: none Housing: house Do you need help understanding health information?: Often current occupation: Unemployed Sexually active: No Do you think of yourself as: straight/heterosexual Current gender identity: male Do you feel safe at home: Yes Do you feel safe in your relationship?: Yes Meds Home Medications and Allergies Home Medications Medication Instructions Recorded Confirmed Type Therapeutic-M 1 tab PO DAILY #30 tab 12/12/17 05/15/20 Rx ferrous gluconate 324 mg (37.5 mg 324 mg PO DAILY 01/23/20 05/15/20 History iron) tablet albuterol sulfate 90 mcg/actuation 2 puff INHALATION Q4H PRN #18 gm 04/10/20 07/10/20 Rx aerosol inhaler tiotropium bromide 18 mcg capsule 1 cap INHALATION DAILY #60 inh 02/14/20 05/15/20 Rx with inhalation device magnesium oxide 400 mg PO DAILY #14 tab 02/29/20 05/15/20 Rx sucralfate [Carafate] 1 gm PO QACHS #120 tab 02/29/20 05/15/20 Rx thiamine HCl (vitamin B1) 100 mg PO DAILY #30 tab 02/29/20 05/15/20 Rx pantoprazole 40 mg tablet,delayed 40 mg PO BID #60 tab 03/04/20 05/15/20 Rx release furosemide 20 mg tablet 20 mg PO DAILY #90 tab 05/14/20 05/15/20 Rx Allergies Allergy/AdvReac Type Severity Reaction Status Date / Time No Known Allergies Allergy Unverified 05/15/20 10:46 Exam Narrative Exam Narrative: General: Tremulous cachectic middle aged male, who is A&Ox3, but cannot tell me what medications he takes. Neurological: tremulous, A&Ox3, no focal deficits, poor history provider Psychiatric: appropriate speech pattern/content Skin: visible skin intact HEENT: Atraumatic, normocephalic, EOMI, dry MM, clear oropharynx, no submandibular or cervical lymphadenopathy, no goiter or JVD Cardiovascular: RRR, no m/r/g Lungs: wheezing on expiration B, wet-sounding cough. Gastrointestinal: scaphoid abdomen, soft, nontender Genitourinary: deferred Extremities: +1 BLE edema with indentation from socks, no c/c BLE's, 1+ pedal pulses B Results Imaging Additional studies: CT chest/abdomen/pelvis: No acute abnormality is seen in the chest abdomen or pelvis. Incidental findings as mentioned above. No consolidation of measurable mass. Emphysema changes greater in upper lobes. Subacute R clavicular fx. Subacute fractures of R 2nd and 3rd ribs. Prostate calcifications. Venous dopplers BLE's: Right: Negative for DVT Left: Negative for DVT CT head/c-spine w/o contrast: No acute abnormality in the head. No acute cervical spine fracture. Subacute or old fracture of the head of the right clavicle. EKG: HR 89, NSR, no acute ischemia Labs Result diagrams: 05/15/20 11:01 05/15/20 16:51 Labs: Laboratory Results - last 24 hr 05/15/20 05/15/20 05/15/20 11:01 11:01 11:01 WBC RBC Hgb Hct MCV MCH MCHC RDW Plt Count MPV Immature Gran % Neutrophils % Lymphocytes % Monocytes % Eosinophils % Basophils % Absolute Neutrophils Absolute Lymphocytes Absolute Monocytes Absolute Eosinophils Absolute Basophils PT 11.6 H INR 1.2 H APTT 25.9 Sodium 135 L Potassium 2.5 L* Chloride 95 L Carbon Dioxide 33.3 H Anion Gap 6.7 BUN 3 L Creatinine 0.47 L Estimated GFR/1.73 m2 >= 60.00 Glucose 103 Calcium 8.0 L Magnesium 1.5 L Total Bilirubin 1.0 AST 71 H ALT 36 Alkaline Phosphatase 58 Troponin I < 0.05 Total Protein 6.1 L Albumin 2.6 L Lipase 147 Urine Color Urine Clarity Urine pH Ur Specific Marcellus Urine Protein Urine Ketones Urine Blood Urine Nitrite Urine Bilirubin Urine Urobilinogen Ur Leukocyte Esterase Urine Glucose Urine Opiates Screen Urine Methadone Screen Ur Barbiturates Screen Ur Tricyclics Screen Ur Amphetamines Screen U Benzodiazepines Scrn Urine Cocaine Screen Ur THC Screen Ethyl Alcohol 05/15/20 05/15/20 05/15/20 11:01 13:18 13:18 WBC 8.05 RBC 3.85 L Hgb 10.8 L Hct 33.1 L MCV 86.0 MCH 28.1 MCHC 32.6 RDW 17.2 H Plt Count 254 MPV 9.5 Immature Gran % 0.4 Neutrophils % 79.8 Lymphocytes % 9.3 Monocytes % 9.9 Eosinophils % 0.2 Basophils % 0.4 Absolute Neutrophils 6.42 Absolute Lymphocytes 0.75 L Absolute Monocytes 0.80 H Absolute Eosinophils 0.02 Absolute Basophils 0.03 PT INR APTT Sodium Potassium Chloride Carbon Dioxide Anion Gap BUN Creatinine Estimated GFR/1.73 m2 Glucose Calcium Magnesium Total Bilirubin AST ALT Alkaline Phosphatase Troponin I Total Protein Albumin Lipase Urine Color Yellow Urine Clarity Clear Urine pH 7.5 Ur Specific Marcellus 1.010 Urine Protein Negative Urine Ketones Negative Urine Blood Negative Urine Nitrite Negative Urine Bilirubin Negative Urine Urobilinogen 0.2 Ur Leukocyte Esterase Negative Urine Glucose Negative Urine Opiates Screen Negative Urine Methadone Screen Negative Ur Barbiturates Screen Negative Ur Tricyclics Screen Negative Ur Amphetamines Screen Negative U Benzodiazepines Scrn Negative Urine Cocaine Screen Negative Ur THC Screen Positive A Ethyl Alcohol 05/15/20 13:45 WBC RBC Hgb Hct MCV MCH MCHC RDW Plt Count MPV Immature Gran % Neutrophils % Lymphocytes % Monocytes % Eosinophils % Basophils % Absolute Neutrophils Absolute Lymphocytes Absolute Monocytes Absolute Eosinophils Absolute Basophils PT INR APTT Sodium Potassium Chloride Carbon Dioxide Anion Gap BUN Creatinine Estimated GFR/1.73 m2 Glucose Calcium Magnesium Total Bilirubin AST ALT Alkaline Phosphatase Troponin I Total Protein Albumin Lipase Urine Color Urine Clarity Urine pH Ur Specific Marcellus Urine Protein Urine Ketones Urine Blood Urine Nitrite Urine Bilirubin Urine Urobilinogen Ur Leukocyte Esterase Urine Glucose Urine Opiates Screen Urine Methadone Screen Ur Barbiturates Screen Ur Tricyclics Screen Ur Amphetamines Screen U Benzodiazepines Scrn Urine Cocaine Screen Ur THC Screen Ethyl Alcohol 3.0 Last Vital Signs Temp 37 C 05/15/20 14:25 Pulse 90 05/15/20 14:25 Resp 17 05/15/20 14:25 BP 92/64 L 05/15/20 14:41 Pulse Ox 96 05/15/20 14:25 COVID-19 Screening Have you,or household,traveled outside [place] in last 14 days?: No Had IN PERSON contact w/suspected or confirmed C-19 person: No
[2020-05-15] MEDS: Albuterol HFA 8 GM 60 PUFF INH IH ×2 (17:06→23:41)
[2020-05-15 17:09] LABS: Anion Gap 8.5 mmol/L (3-11); BUN 2 mg/dL (7-18); CO2 29.5 mmol/L (21.0-32.0); CREATININE 0.41 mg/dL (0.70-1.30); Calcium 7.8 mg/dL (8.5-10.1); Chloride 98 mmol/L (98-107); Glucose 88 mg/dL (74-106); Potassium 3.5 mmol/L (3.5-5.1); Sodium 136 mmol/L (136-145)
[2020-05-15] MEDS: MAGNESIUM SULFATE 4 GM/100 ML BAG IVPB (17:36)
[2020-05-15 17:56] LABS: Procalcitonin < 0.1 ng/mL
[2020-05-15] MEDS: guaiFENesin 600 MG TABCR PO (19:55)
[2020-05-15] MEDS: Pantoprazole 40 MG TABCR PO (19:55)
[2020-05-15] MEDS: Sucralfate 1 GM TAB PO (21:23)
[2020-05-16] VITALS (7 sets, daily range): BP systolic 83–118; BP diastolic 54–78; PULSE 75–89; RESP 16–18; TEMP 36.5–37.7; O2SAT 96–99
[2020-05-16 02:59] LABS: COVID-19 RT-PCR UVMMC Result Negative (Negative)
[2020-05-16] MEDS: Normal Saline 1,000 ML 75 ML IV (05:47)
[2020-05-16] MEDS: Acetaminophen 325 MG TAB PO (05:58)
[2020-05-16] MEDS: Albuterol HFA 8 GM 60 PUFF INH IH ×3 (06:25→22:23)
[2020-05-16 07:37] LABS: Abs Immature Grans 0.02 k/cumm (0.0-0.09); Absolute Basophil Count 0.02 k/cumm (0.0-0.2); Absolute Eosinophil Count 0.05 k/cumm (0.0-0.7); Absolute Lymphocyte Count 0.64 k/cumm (1.2-3.4); Absolute Monocyte Count 0.68 k/cumm (0.11-0.7); Basophils % 0.3; Eosinophils % 0.9; HCT 32.9 % (40.0-50.0); HGB 10.2 g/dL (13.5-17.5); Immature Grans % 0.3 %; Mean Corpuscular Hemoglobin 27.3 pg (27.0-33.0); Mean Corpuscular Volume 88.2 fL (80-95); Mean Platelet Volume 9.5 fL (8.0-11.0); Monocytes % 11.7; Neutrophils % 75.8; Platelet Count 238 x1000/uL (130-400); RBC 3.73 m/cumm (4.50-6.00); RBC Distribution Width 18.3 % (11.8-14.1); White Blood Cell Count 5.81 k/cumm (4.4-10.8)
[2020-05-16 07:47] LABS: Ammonia 37 umol/L (11-32)
[2020-05-16] MEDS: Sucralfate 1 GM TAB PO ×4 (07:52→22:13)
[2020-05-16] MEDS: Folic Acid 1 MG TAB PO (07:53)
[2020-05-16] MEDS: Pantoprazole 40 MG TABCR PO ×2 (07:53→19:47)
[2020-05-16] MEDS: Ferrous Gluconate 324 MG TAB PO (07:53)
[2020-05-16] MEDS: guaiFENesin 600 MG TABCR PO ×2 (07:53→19:47)
[2020-05-16] MEDS: Multivitamin TAB 1 TAB PO (07:53)
[2020-05-16] MEDS: Tiotropium/Olodaterol 10 PUFF INHALER IH (07:53)
[2020-05-16] MEDS: Multivitamin w/Minerals TAB 1 TAB PO (07:53)
[2020-05-16] MEDS: Thiamine 100 MG TAB PO (07:53)
[2020-05-16 07:58] LABS: Iron 53 ug/dL (65-175); Total Iron Binding Capacity 200 ug/dL (250-450); Transferrin Sat 27 % (20-55)
[2020-05-16 08:17] LABS: ALT 33 U/L (16-63); AST 53 U/L (15-37); Albumin 2.3 g/dL (3.4-5.0); Alkaline Phosphatase 53 U/L (46-116); Anion Gap 6.4 mmol/L (3-11); BUN 1 mg/dL (7-18); Bilirubin, Total 1.4 mg/dL (0.2-1.0); CO2 29.6 mmol/L (21.0-32.0); CREATININE 0.55 mg/dL (0.70-1.30); Calcium 7.7 mg/dL (8.5-10.1); Chloride 100 mmol/L (98-107); Ferritin 41 ng/mL (26-388); Folate 16.9 ng/mL (8.6-20.0); Glucose 126 mg/dL (74-106); Potassium 3.1 mmol/L (3.5-5.1); Sodium 136 mmol/L (136-145); TSH (W/Ref FT4) 3.78 uIU/mL (0.36-3.74); Total Protein 5.5 g/dL (6.4-8.2); Vitamin B12 1063 pg/mL (193-986)
[2020-05-16 08:33] LABS: FREE T4 1.21 ng/dL (0.76-1.46)
[2020-05-16] MEDS: Magnesium Oxide 400 MG TAB PO (10:44)
[2020-05-16] MEDS: LORazepam 1 MG TAB PO/SL (10:44)
[2020-05-16] MEDS: Normal Saline Flush 10 ML SYR IVP ×2 (10:45→12:21)
--- NOTE | 2020-05-16 11:51 | PDOC.CMPRO ---
- If Service Date Differs Date of service: 05/16/20 Time of Service: 11:51 Care Management Progress Note S/O: Alton was lying in bed when CM met with him. He reported that he was not feeling at his best currently. CM asked him about his living situation, which he replied that he lives alone. When asked about previous attempts to have HH services, which were declined by Alton, he stated that sounds like something I would do. CM asked if he would be agreeable to services in the future, which he responded it depends on how I am feeling when I am ready to leave. Per report, MD does not believe he will be safe to discharge home in his current condition. Alton stated that he has not yet worked with PT during this admission. Alton stated that he would have to cut this meeting short due to him needing to use the bathroom. CM will continue to follow. A: Alton is a 60 year old male admitted to [facility] on 05/15/20 with generalized weakness, FTT. P: Alton's disposition is not clear at this time, due to further evaluations required to determine his need. Anticipate he will return home with new HH services vs SNF, depending on the outcome of evaluations and progress made while at [facility]. He has declined SNF and services in the past. CM will continue to support discharge planning considerations.
[2020-05-16] MEDS: Potassium Chloride Liquid 20 MEQ PKT 40 MEQ PO (12:38)
--- NOTE | 2020-05-16 13:28 | PHACLINREV_ITS ---
Pharmacy Admission Review - Admission Clinical Review (Last Updated 03/03/20 @ 14:40 by Jonathan Black DO) Unintentional weight loss (Acute) Discharge planning issues (Acute) DVT prophylaxis (Acute) Hypokalemia (Acute) Hypomagnesemia (Acute) No Known Allergies Allergy (Unverified 05/15/20 10:46) Height 5 ft 8 in Weight 50.7 kg - Renal Dosing Renal Dosing: BUN 1 mg/dL (7-18) L 05/16/20 07:17 Creatinine 0.55 mg/dL (0.70-1.30) L 05/16/20 07:17 Medications needing adjustments: Reviewed (Crcl ~72 mL/min current meds okay) - Anticoagulation Anticoagulation: Hgb 10.2 g/dL (13.5-17.5) L 05/16/20 07:17 Hct 32.9 % (40.0-50.0) L 05/16/20 07:17 Plt Count 238 x1000/uL (130-400) 05/16/20 07:17 INR 1.2 (0.9-1.1) H 05/15/20 11:01 Creatinine 0.55 mg/dL (0.70-1.30) L 05/16/20 07:17 DVT Prohphylaxis: Reviewed (teds/scds per H+P) Therapeutic Anticoagulation: N/A - Opiate Usage Evaluate Pain Scale/Pains Meds: N/A - Relevant Labs Sodium 136 mmol/L (136-145) 05/16/20 07:17 Potassium 3.1 mmol/L (3.5-5.1) L 05/16/20 07:17 Chloride 100 mmol/L (98-107) 05/16/20 07:17 Magnesium 2.0 mg/dL (1.8-2.4) 05/16/20 07:17 Electrolytes, C-Reactive P, ESR: Reviewed (mag improved since yesterday, K+ replacement ordered today/scheduled) - DM Control DM Control: Glucose 126 mg/dL (74-106) H 05/16/20 07:17 Insulin Dosing: N/A - Heart Failure/MT Heart Failure/MT: Troponin I < 0.05 ng/mL (<0.06) 05/15/20 11:01 EF%, LEW's, B-Blockers, Diuretics: N/A - BP Control BP Control: Blood Pressure 97/60 Blood Pressure 94/59 Blood Pressure 118/76 If elevated: N/A - Qtc Review If Elevated: N/A - IV to PO Switch IV Medications: N/A - Home Meds Home Med List reviewed: Reviewed (multivitamins may increase the serum concentration of sucralfate (specifically aluminum); recommended to avoid chronic/excessive use of sucralfate in pts also taking multivitamins containing vitamin D. Sucralfate may decrease the serum concentration of furosemide; solange mmended to avoid combination or separate administration by at lease 2 hours.) Relevent Home Meds Not ordered & why?: furosemide, tiotropium (has tiotropium/olodaterol ordered) - Current meds Current Medication Order Review: Intervened (entered patch removal order since nicotine patch order PRN, talked to provider as pt had a multivitamin order and a multvitamin w/minerals order) - Comments Comments/Follow Ups: watch mag and K+, BP, CIWA, and for med changes
--- NOTE | 2020-05-16 14:02 | PGE_ITS ---
Date of Service Date of service: 05/16/20 Time of Service: 14:03 Assessment and Plan Assessment and plan (1) Failure to thrive: Status: Chronic Assessment and plan: Patient is having trouble performing his ADLs and caring for himself. He has had assistance from his mother who cooks her meals but he does not eat the foods that she provides for him. He continues to drink at least 2 beers per day and probably more. His failure to thrive is multifactorial including poor nutrition along with chronic alcoholism. PT, OT, nutritional services have all been consulted to evaluate and treat his nutritional status and generalized weakness. Qualifiers: Failure to thrive age range: in adult Qualified Code(s): R62.7 - Adult failure to thrive (2) Hypomagnesemia: Status: Acute Assessment and plan: Chronic condition secondary to his alcoholism. He was repleted with IV and oral magnesium and his repeat level is normal. We will continue to monitor (3) Hypokalemia: Status: Acute Assessment and plan: We will continue to replete with both IV and oral potassium. Recheck his labs in the morning. (4) Unintentional weight loss: Status: Acute Assessment and plan: As above - no obvious malignancy. ?All due to alcoholism. Consult nutrition. (5) Ambulatory dysfunction: Status: Chronic Assessment and plan: Consult PT, OT (6) Alcohol abuse: Status: Chronic Assessment and plan: Continue to monitor per CIWA scale. However historically he is not going into acute delirium tremens when he has been hospitalized during his previous admission for GI bleeding. (7) Chronic anemia: Status: Chronic Assessment and plan: with history of GI bleeding. Continue oral iron supplementation along with continued GI protection with Protonix and Carafate (8) COPD (chronic obstructive pulmonary disease): Status: Chronic Assessment and plan: Do not feel that his respiratory status is severe enough to require a steroid burst particularly in light of his history of gastritis and upper GI bleeding. Will use PRN albuterol. (9) Bilateral leg pain: Status: Chronic Assessment and plan: B12 folic acid levels were normal. Do suspect that he has a peripheral neuropathy due to his alcoholism. Could consider a trial of Neurontin . (10) DVT prophylaxis: Status: Acute Assessment and plan: TEDs/SCDs, Not a candidate for enoxaparin or heparin secondary to prior severe upper GI bleeding (11) Discharge planning issues: Status: Acute Assessment and plan: Full code. Consult palliative care. Disposition is an issue As I doubt that he will allow referral to a SNF Subjective Subjective Interval history since last seen: 60-year-old male with a history of alcohol abuse, hepatitis, COPD, fatty liver, Hopson's esophagitis, previous GI bleeding who was admitted to [facility] in February 21-02/28 for hemorrhagic shock d/t UGI bleeding secondary to erosive gastritis that required EGD and cautery of 3 bleeders (?AVM) and transfusions 3 units. He was to be on protonix and carafate indefinitely. He signed out AMA on 02/29/2020. He presented yesterday to the ER w/ c/o of generalized weakness, unintentional weight loss, poor appetite and poor ability to ambulate, bilateral leg pain and hypokalemic (2.5) and hypomagnesemic (1.5) and chronic anemia w/ Hb 10 gm. Overnight he was given supplemental potassium and magnesium. His repeat potassium transiently came up to 3.5 last night but is down to 3.1 this a.m. Repeat Mg is normal at 2.0. He has been restarted on his Protonix at 40 mg BID and carafate 1 gm ac/hs. He has been placed on supplemental thiamine and folic acid, although his B12 is normal at 1063 and folate is normal at 16.9. P.T. and O.T. and nutritional consults have been placed. Exam Narrative Exam Narrative: Middle-age male who looks much older than his stated age she is alert and oriented person place time circumstance. Lungs with scattered expiratory wheezes Heart regular rate and rhythm without appreciable murmur rub or gallop. Abdomen soft and nontender nondistended normal active bowel sounds. Extremities without peripheral cyanosis or edema. Normal range of motion with no focal paresis. Objective Objective Clinical Data: Abnormal lab results 05/15/20 05/15/20 05/16/20 Range/Units 13:18 16:51 07:17 RBC (4.50-6.00) m/cumm Hgb (13.5-17.5) g/dL Hct (40.0-50.0) % MCHC (32.0-36.0) g/dL RDW (11.8-14.1) % Absolute Lymphocytes (1.2-3.4) k/cumm Potassium 3.1 L (3.5-5.1) mmol/L BUN 2 L 1 L (7-18) mg/dL Creatinine 0.41 L 0.55 L (0.70-1.30) mg/dL Glucose 126 H (74-106) mg/dL Calcium 7.8 L 7.7 L (8.5-10.1) mg/dL Iron (65-175) ug/dL TIBC (250-450) ug/dL Total Bilirubin 1.4 H (0.2-1.0) mg/dL Conjugated Bilirubin 0.80 H (0.00-0.20) mg/dL AST 53 H (15-37) U/L Ammonia (11-32) umol/L Total Protein 5.5 L (6.4-8.2) g/dL Albumin 2.3 L (3.4-5.0) g/dL Vitamin B12 1063 H (193-986) pg/mL TSH 3.78 H (0.36-3.74) uIU/mL Ur THC Screen Positive A (Negative) 05/16/20 05/16/20 05/16/20 Range/Units 07:17 07:17 07:17 RBC 3.73 L (4.50-6.00) m/cumm Hgb 10.2 L (13.5-17.5) g/dL Hct 32.9 L (40.0-50.0) % MCHC 31.0 L (32.0-36.0) g/dL RDW 18.3 H (11.8-14.1) % Absolute Lymphocytes 0.64 L (1.2-3.4) k/cumm Potassium (3.5-5.1) mmol/L BUN (7-18) mg/dL Creatinine (0.70-1.30) mg/dL Glucose (74-106) mg/dL Calcium (8.5-10.1) mg/dL Iron 53 L (65-175) ug/dL TIBC 200 L (250-450) ug/dL Total Bilirubin (0.2-1.0) mg/dL Conjugated Bilirubin (0.00-0.20) mg/dL AST (15-37) U/L Ammonia 37 H (11-32) umol/L Total Protein (6.4-8.2) g/dL Albumin (3.4-5.0) g/dL Vitamin B12 (193-986) pg/mL TSH (0.36-3.74) uIU/mL Ur THC Screen (Negative) Vital Signs Temperature 37.7 C H 05/16/20 11:49 Temperature Source Temporal Artery Scan 05/16/20 11:49 Pulse 75 05/16/20 11:49 Pulse Rhythm Regular 05/16/20 08:35 Pulse 94 H 05/15/20 13:05 Respiratory Rate 18 05/16/20 11:49 Respiratory Effort Non-Labored 05/16/20 08:35 Respiratory Depth Normal 05/16/20 08:35 Respiratory Pattern Normal 05/16/20 08:35 Blood Pressure 97/60 L 05/16/20 11:49 Blood Pressure Mean 69 05/15/20 13:05 Blood Pressure Position Supine 05/15/20 10:42 Pulse Oximetry 96 05/16/20 11:49 Oxygen Delivery Method Room Air 05/16/20 11:49 Oxygen Flow Rate 0 05/16/20 11:49 Pain Level 0 05/16/20 11:49 Comment 05/15/20 16:23 Intake & Output 05/15/20 05/16/20 05/16/20 23:59 11:59 23:59 Intake Total 1792.25 / 1792.25 987.5 / 987.5 Output Total 475 / 475 550 / 550 Balance 1317.25 / 1317.25 437.5 / 437.5 Weight 48.4 kg 50.7 kg Intake: IV 802.25 / 802.25 987.5 / 987.5 Oral 990 / 990 Output: Urine 475 / 475 550 / 550 Post Void Residual 0 / 0 Other: Urine Color Yellow Yellow Urine Appearance Clear Clear Urine Odor Normal Normal Comment Void x1 in the briefs. Briefs were changed. Stool Occult Blood Negative Stool Size Moderate Small Stool Characteristics Liquid Soft Mucoid Brown Brown Voiding Methods Toilet Urinal Urinal Laboratory Results WBC 5.81 k/cumm (4.4-10.8) 05/16/20 07:17 RBC 3.73 m/cumm (4.50-6.00) L 05/16/20 07:17 Hgb 10.2 g/dL (13.5-17.5) L 05/16/20 07:17 Hct 32.9 % (40.0-50.0) L 05/16/20 07:17 MCV 88.2 fL (80-95) 05/16/20 07:17 MCH 27.3 pg (27.0-33.0) 05/16/20 07:17 MCHC 31.0 g/dL (32.0-36.0) L 05/16/20 07:17 RDW 18.3 % (11.8-14.1) H 05/16/20 07:17 Plt Count 238 x1000/uL (130-400) 05/16/20 07:17 MPV 9.5 fL (8.0-11.0) 05/16/20 07:17 Immature Gran % 0.3 % 05/16/20 07:17 Neutrophils % 75.8 05/16/20 07:17 Lymphocytes % 11.0 05/16/20 07:17 Monocytes % 11.7 05/16/20 07:17 Eosinophils % 0.9 05/16/20 07:17 Basophils % 0.3 05/16/20 07:17 Absolute Neutrophils 4.40 k/cumm (1.2-6.7) 05/16/20 07:17 Absolute Lymphocytes 0.64 k/cumm (1.2-3.4) L 05/16/20 07:17 Absolute Monocytes 0.68 k/cumm (0.11-0.7) 05/16/20 07:17 Absolute Eosinophils 0.05 k/cumm (0.0-0.7) 05/16/20 07:17 Absolute Basophils 0.02 k/cumm (0.0-0.2) 05/16/20 07:17 PT 11.6 sec (9.3-11.0) H 05/15/20 11:01 INR 1.2 (0.9-1.1) H 05/15/20 11:01 APTT 25.9 sec (21.0-31.4) 05/15/20 11:01 Sodium 136 mmol/L (136-145) 05/16/20 07:17 Potassium 3.1 mmol/L (3.5-5.1) L 05/16/20 07:17 Chloride 100 mmol/L (98-107) 05/16/20 07:17 Carbon Dioxide 29.6 mmol/L (21.0-32.0) 05/16/20 07:17 Anion Gap 6.4 mmol/L (3-11) 05/16/20 07:17 BUN 1 mg/dL (7-18) L 05/16/20 07:17 Creatinine 0.55 mg/dL (0.70-1.30) L 05/16/20 07:17 Estimated GFR/1.73 m2 >= 60.00 (mL/min/1.73m2) 05/16/20 07:17 Glucose 126 mg/dL (74-106) H 05/16/20 07:17 Calcium 7.7 mg/dL (8.5-10.1) L 05/16/20 07:17 Magnesium 2.0 mg/dL (1.8-2.4) 05/16/20 07:17 Iron 53 ug/dL (65-175) L 05/16/20 07:17 TIBC 200 ug/dL (250-450) L 05/16/20 07:17 Transferrin % Sat 27 % (20-55) 05/16/20 07:17 Ferritin 41 ng/mL (26-388) 05/16/20 07:17 Total Bilirubin 1.4 mg/dL (0.2-1.0) H 05/16/20 07:17 Conjugated Bilirubin 0.80 mg/dL (0.00-0.20) H 05/16/20 07:17 AST 53 U/L (15-37) H 05/16/20 07:17 ALT 33 U/L (16-63) 05/16/20 07:17 Alkaline Phosphatase 53 U/L (46-116) 05/16/20 07:17 Ammonia 37 umol/L (11-32) H 05/16/20 07:17 Troponin I < 0.05 ng/mL (<0.06) 05/15/20 11:01 Total Protein 5.5 g/dL (6.4-8.2) L 05/16/20 07:17 Albumin 2.3 g/dL (3.4-5.0) L 05/16/20 07:17 Lipase 147 U/L (73-393) 05/15/20 11:01 Vitamin B12 1063 pg/mL (193-986) H 05/16/20 07:17 Folate 16.9 ng/mL (8.6-20.0) 05/16/20 07:17 Procalcitonin < 0.1 ng/mL 05/15/20 16:51 TSH 3.78 uIU/mL (0.36-3.74) H 05/16/20 07:17 Free T4 1.21 ng/dL (0.76-1.46) 05/16/20 07:17 Urine Color Yellow (Yellow) 05/15/20 13:18 Urine Clarity Clear (Clear) 05/15/20 13:18 Urine pH 7.5 (5-8) 05/15/20 13:18 Ur Specific [place] 1.010 (1.005-1.025) 05/15/20 13:18 Urine Protein Negative mg/dL (Negative) 05/15/20 13:18 Urine Ketones Negative mg/dL (Negative) 05/15/20 13:18 Urine Blood Negative (Negative) 05/15/20 13:18 Urine Nitrite Negative (Negative) 05/15/20 13:18 Urine Bilirubin Negative (Negative) 05/15/20 13:18 Urine Urobilinogen 0.2 EU/dL (Up TO 0.2) 05/15/20 13:18 Ur Leukocyte Esterase Negative (Negative) 05/15/20 13:18 Urine Glucose Negative mg/dL (Negative) 05/15/20 13:18 Urine Opiates Screen Negative (Negative) 05/15/20 13:18 Urine Methadone Screen Negative (Negative) 05/15/20 13:18 Ur Barbiturates Screen Negative (Negative) 05/15/20 13:18 Ur Tricyclics Screen Negative (Negative) 05/15/20 13:18 Ur Amphetamines Screen Negative (Negative) 05/15/20 13:18 U Benzodiazepines Scrn Negative (Negative) 05/15/20 13:18 Urine Cocaine Screen Negative (Negative) 05/15/20 13:18 Ur THC Screen Positive (Negative) A 05/15/20 13:18 Ethyl Alcohol 3.0 mg/dL (<3) 05/15/20 13:45 COVID-19 PCR Negative (Negative) 05/15/20 13:53 Nasopharyn COVID-19 PCR Not Applicable 05/15/20 13:53 Ref Test Perform Site [facility] 05/15/20 13:53
--- NOTE | 2020-05-16 15:11 | IN_ITS ---
Date of service: 05/16/20 Time of Service: 14:45 PT Notes Visit Reasons: FAILURE TO THRIVE, HYPOKALEMIA, HYPOMAGNESEMIA Inpatient Physical Therapy Evaluation Date: 05/16/20 Referring Doctor: Laila Ontiveros MD PT Orders: PT CONSULT: Limited ability Precautions: Standard, Fall Patient Profile/Admitting Diagnosis: Orders received for this 60-year-old male who was until recently independently live at his home in [place]. Patient describes his living situation as in a trailer however he does have family member live close and are able to offer support when needed. Patient has noted a steady decline for the last couple months now. He has lost a significant amount of weight mainly due to the fact he is not hungry. He feels like he has no strength through his leg but now he starts to notice that there is also some strength loss through the arms as well. He has had a few falls recently. Patient was admitted to the hospital after a PCP visit in which he was noted to be in a significant state of failure to thrive. PMHX: Medical History (Updated 05/15/20 @ 19:01 by Laila Ontiveros MD) Abnormal abdominal CT scan (Inactive) Alcohol induced fatty liver (Acute) Alcohol use disorder (Acute) Alcohol use disorder (Acute) Anemia, iron deficiency (Acute) Arthritis (Acute) Atherosclerosis of abdominal aorta (Acute) Hopson's esophagus determined by endoscopy (Acute) Barretts esophagus (Acute) Bone spur of foot (Acute) Chronic iron deficiency anemia (Acute) COPD (chronic obstructive pulmonary disease) (Chronic) DDD (degenerative disc disease) (Acute) Dehydration (Resolved) Dehydration, mild (Resolved) Depression (Chronic) Depression with anxiety (Acute) Diverticulosis (Acute) Erosive gastritis (Acute) Erosive gastritis (Acute) Esophageal reflux (Acute) Essential tremor (Acute) Fatty liver (Acute) Gastroenteritis (Resolved) Hematemesis (Resolved) Hepatitis A (Acute) Hyperlipemia (Acute) Hypokalemia due to excessive gastrointestinal loss of potassium (Resolved) Hypomagnesemia (Acute) Insomnia (Acute) Left knee pain (Acute) LLQ abdominal pain (Acute) Low back pain (Acute) Lower extremity edema (Acute) Nonspecific ST-T wave electrocardiographic changes (Acute) Osteoarthritis (arthritis due to wear and tear of joints) (Chronic) Rectal polyp (Acute) Smoker unmotivated to quit (Resolved) Suspected COVID-19 virus infection (Inactive) Tetrahydrocannabinol (THC) use disorder, moderate, dependence (Acute) Thrombocytopenia (Chronic) Tobacco use disorder (Acute) Transaminitis (Acute) Urinary incontinence (Acute) Urinary urgency (Acute 08/14/17) Surgical History History of foot surgery (Acute) Hx of colonoscopy (Chronic) Hx of esophagogastroduodenoscopy (Chronic) Social History/Home Situation: Patient lives in a trailer in [place] alone. His mother lives close by and is offered to set since and is ready when needed Equipment Owned/DME: It is unclear whether patient has any significant equipment Subjective: Patient states he knows that the road will be long but he does not feel like he is ready to go home yet Objective: Patient is lying in bed he is easily aroused as he is sleeping. The head of the bed is to 20 degrees Mental Status: Well oriented and alert to person place and time Pain: Slight pain to the lower extremities bilaterally and about 3 out of 10 ROM: Right Upper Extremity: Within functional limits Left Upper Extremity: Within functional limits Right Lower Extremity: Within functional limit Left Lower Extremity: Within functional limit Strength: Right Upper Extremity: Globally 4+ out of 5 Left Upper Extremity: Globally 4,+ out of 5 Right Lower Extremity: Hip flexion 4-5, quads 4+ out of 5, hamstrings 4+ out of 5, dorsiflexion and plantarflexion 4+out of 5 Left Lower Extremity: Hip flexion 4-5, quads 4+ out of 5, hamstrings 4+ out of 5, dorsiflexion and plantarflexion 4+out of 5 Bed Mobility/Transfers: Able to negotiate supine to sit transfer however does need minor assistance in terms of contact-guard and with help with linen Sit-stand: Contact-guard assist, patient is able to attempt 3 sit to stands all requiring contact-guard assist Stand-sit: Contact-guard assist Bed-toilet: Patient able to ambulate to the toilet about 20 feet there and back utilizing front wheel walker and contact-guard assist. He is able to independently negotiate himself with his toiletry including wiping and negotiation of his briefs Gait: 20 feet as stated above with use of front wheel walker and contact-guard assist, demonstrates mild ataxia with a slight lateral deviation his gait path Balance: Static Sitting: Good Dynamic Sitting: Good Static Standing: Fair Dynamic Standing: Poor Patient able to be placed in static standing for up to minutes without upper extremity support on walker Special Tests: Mobility Limitations Standardized Measure [facility] AM-PAC 6 clicks Basic Mobility Inpatient Short Form: Raw Score: 16 standardized Score: 40.78 CMS Score: 54.16% Informed Consent/Education: Patient instructed in purpose of PT consult and plan of care. ASSESSMENT: Patient is a 60-year-old male with a history of recent health conditions affecting function Admitted with hypokalemia, failure to thrive, hypomagnesia Patient presents with the following impairment level findings: Assistance needed for all transferring, significant ambulation intolerance, mild ataxia noted with gait Pt will benefit from skilled therapy intervention in order to remedy their functional limitations and restore patient to a more appropriate and stable functional level. Impairments are contributing to the following functional limitations: AMPAC score 54.16% Patient is assessed as a moderate complexity initial evaluation [id number] based on the following: History: see above Examination: see above Presentation: Evolving Decision Making: Moderate based on impact score 54.16% Goals: Goals X1 week 1. Sit-Stand independent 2. Stand-Sit Independent 3. Bed-Chair Independent 4. Gait independent with least restrictive assistive device 300 feet 5: Stairs patient able to negotiate 3 stairs 6: Independent in Home program Plan of Care/Treatment Plan: 1-2x/day, 7 days/week x 1 week. Plan of care has been reviewed with the STAFF PHYSICIAN providing the service under Physical Therapy direction. Initiate Physical Therapy intervention for strengthening, bed mobility, transfers, gait, stairs, balance training, use of assistive device. DISCHARGE RECOMMENDATIONS: Unless patient makes a remarkable recovery currently at this state he is not able to fill independent living at home. Patient may require half-way placement in order to build up his strength as well as trained in functional ADLs. Patient is able to gain a little more mobility during his admission he may be able to be discharged home safely but with a significant need for home health services for appropriate management as well as home health physical therapy services for continued strength and conditioning TREATMENT CODE/TIME: Moderate complexity initial evaluation [id number] 20 minutes of treament time Olegario Bai, DPT [facility]
[2020-05-16] MEDS: Normal Saline 250 ML IV (17:31)
[2020-05-16] MEDS: Potassium Chloride Liquid 20 MEQ PKT PO (19:47)
[2020-05-16] MEDS: Normal Saline 1,000 ML 125 ML IV (22:13)
[2020-05-17 03:30] VITALS: BP 119/77; PULSE 82; RESP 17; TEMP 37.3; O2SAT 99
[2020-05-17] MEDS: Normal Saline 1,000 ML 125 ML IV (05:16)
[2020-05-17] MEDS: Albuterol HFA 8 GM 60 PUFF INH IH ×2 (06:30→19:54)
[2020-05-17 07:05] VITALS: BP 102/68; PULSE 81; RESP 20; TEMP 36.7; O2SAT 95
[2020-05-17] MEDS: Folic Acid 1 MG TAB PO (07:45)
[2020-05-17] MEDS: Sucralfate 1 GM TAB PO ×4 (07:45→22:21)
[2020-05-17] MEDS: guaiFENesin 600 MG TABCR PO ×2 (07:45→19:55)
[2020-05-17] MEDS: Potassium Chloride Liquid 20 MEQ PKT PO ×4 (07:45→19:54)
[2020-05-17] MEDS: Ferrous Gluconate 324 MG TAB PO (07:45)
[2020-05-17] MEDS: Pantoprazole 40 MG TABCR PO ×2 (07:45→19:55)
[2020-05-17] MEDS: Tiotropium/Olodaterol 10 PUFF INHALER IH (07:45)
[2020-05-17] MEDS: Thiamine 100 MG TAB PO (07:45)
[2020-05-17] MEDS: Multivitamin w/Minerals TAB 1 TAB PO (07:46)
--- NOTE | 2020-05-17 08:27 | CMPROGNOTE_ITS ---
- If Service Date Differs Date of service: 05/17/20 Time of Service: 08:27 Care Management Progress Note S/O: Alton was sitting up in bed when CM met with him. He was pleasant but admitted to being frustrated . It was not clear exactly what the source of his frustration was, however he clearly stated that he does not like being here, but does want to get better. He admitted to being weak and falling and was evaluated by PT this morning. When asked, Alton stated that he has never sought treatment for his alcoholism but thinks he may be ready to now. He started by saying that he does not want to drink again, then amended his statement to say, at least not very often. CM discussed the possibility of having a Associate Loan Officer and Alton verbalized agreement with the plan for CM make a referral. The referral was made this afternoon and Alton will be contacted by phone. A: Alton is a 60 year old male admitted to [facility] on 05/15/20 with generalized weakness, FTT. P: Alton's disposition is not clear at this time, due to further evaluations required to determine his need. Anticipate he will return home with new services vs SNF, depending on the outcome of evaluations and progress made while at [facility]. He has declined SNF and services in the past. Alton did agree to speaking to a tin recovery worker and CM made the referral. CM will continue to support discharge planning considerations.
[2020-05-17 08:31] LABS: Anion Gap 9.6 mmol/L (3-11); BUN 1 mg/dL (7-18); CO2 22.4 mmol/L (21.0-32.0); CREATININE 0.31 mg/dL (0.70-1.30); Calcium 6.5 mg/dL (8.5-10.1); Chloride 109 mmol/L (98-107); Glucose 88 mg/dL (74-106); Magnesium 1.1 mg/dL (1.8-2.4); Sodium 141 mmol/L (136-145)
[2020-05-17 08:37] LABS: Potassium 2.8 mmol/L (3.5-5.1)
[2020-05-17] MEDS: Magnesium Oxide 400 MG TAB 800 MG PO (09:24)
[2020-05-17] MEDS: MAGNESIUM SULFATE 4 GM/100 ML BAG IVPB (09:25)
--- NOTE | 2020-05-17 10:46 | PT.INTREAT ---
PT Notes Visit Reasons: FAILURE TO THRIVE, HYPOKALEMIA, HYPOMAGNESEMIA Inpatient Physical Therapy Treatment Note [facility] Date: 05/17/20 PRECAUTIONS:Failure to thrive SUBJECTIVE: Pt states that his muscles get sore quickly. He does report feeling over all better. OBJECTIVE: [] PAIN: [] BED MOBILITY/TRANSFERS Rolling L/R: [] Supine-sit: CGA/SBA Sit-supine: [] Sit-stand: SBA Stand-sit: SBA GAIT Assistive Device: FWW Weight bearing: Full Assist: CGA Distance: To the bathroom and back also standing for 5 min and marching in place with rest periods during standing time. THEREX: PT completed UE and LE ther ex as per flow sheet. ASSESSMENT: Pt tolerated today's session fairly well. Pt tends to move very quickly and leaves his walker far away from his destinations. PLAN: Cont as per PT POC. TREATMENT CODE/TIME: 10:05-10:30 (25) TANVI RITTER
[2020-05-17 11:30] VITALS: BP 101/65; PULSE 81; RESP 20; TEMP 36.7; O2SAT 98
--- NOTE | 2020-05-17 12:26 | PGE_ITS ---
Date of Service Date of service: 05/17/20 Time of Service: 12:26 Assessment and Plan Assessment and plan (1) Failure to thrive: Status: Chronic Assessment and plan: Generalized weakness secondary to chronic alcoholism causing chronic hypomagnesemia and hypokalemia. Electrolytes are being replaced with oral and IV supplementation. We will monitor his levels with repeat labs this afternoon and again in the morning. Once he is repleted we will plan for discharge home with outpatient physical therapy. Qualifiers: Failure to thrive age range: in adult Qualified Code(s): R62.7 - Adult failure to thrive (2) Hypomagnesemia: Status: Acute Assessment and plan: Chronic condition secondary to his alcoholism. Magnesium levels dropped again to 1.1. He is getting both 4 g of magnesium IV as well as oral supplementation. (3) Hypokalemia: Status: Acute Assessment and plan: We will continue to replete with both IV and oral potassium. Recheck his labs in the morning. (4) Unintentional weight loss: Status: Acute Assessment and plan: As above - no obvious malignancy. ?All due to alcoholism. Consult nutrition. (5) Ambulatory dysfunction: Status: Chronic Assessment and plan: Consult PT, OT (6) Alcohol abuse: Status: Chronic Assessment and plan: Continue to monitor per CIWA scale. However historically he is not going into acute delirium tremens when he has been hospitalized during his previous admission for GI bleeding. 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 Continue oral iron supplementation along with continued GI protection with Protonix and Carafate. Consider venofer given his history of gastritis he may not tolerate the oral iron supplementation and furthermore with the Protonix and Carafate it may not even get adequately absorbed. His iron levels were checked and found to be low. (8) COPD (chronic obstructive pulmonary disease): Status: Chronic Assessment and plan: Do not feel that his respiratory status is severe enough to require a steroid burst particularly in light of his history of gastritis and upper GI bleeding. Will use PRN albuterol. (9) Bilateral leg pain: Status: Chronic Assessment and plan: B12 folic acid levels were normal. Do suspect that he has a peripheral neuropathy due to his alcoholism. Could consider a trial of Neurontin . (10) DVT prophylaxis: Status: Acute Assessment and plan: TEDs/SCDs, Not a candidate for enoxaparin or heparin secondary to prior severe upper GI bleeding (11) Discharge planning issues: Status: Acute Assessment and plan: Full code. Consult palliative care. He does not want to enter a SNF but is interested in doing outpatient physical therapy. He intends to live with his mom upon discharge. Subjective Subjective Interval history since last seen: Overall patient feels better today. He is indicated desire to quit drinking alcohol altogether because I want to go through this shit again. He is indicated willingness to undergo outpatient physical therapy and states that he is in a goal of with his mom while he gets stronger. This morning his potassium and magnesium levels were low again with a potassium level of 2.8 and a magnesium level 1.1. He is getting both oral and IV replacement. He has been placed on telemetry while he receives replacement. He underwent some physical therapy exercises in the room today. He has no nausea no vomiting and actually had a pretty good appetite today. Exam Narrative Exam Narrative: Thin middle-aged male who appears much older than his stated age of 60. He is alert and oriented person place time circumstance. Lungs are clear to auscultation. Heart is regular rate and rhythm. Abdomen soft nondistended normal active bowel sounds nontender. Extremities he has an essential tremor in his hands but otherwise has normal strength and range of motion of both upper and lower extremities with manual muscle testing involving both proximal and distal muscle groups in all 4 extremities. Objective Objective Clinical Data: Abnormal lab results 05/17/20 Range/Units 07:41 Potassium 2.8 L* (3.5-5.1) mmol/L Chloride 109 H (98-107) mmol/L BUN 1 L (7-18) mg/dL Creatinine 0.31 L (0.70-1.30) mg/dL Calcium 6.5 L (8.5-10.1) mg/dL Magnesium 1.1 L (1.8-2.4) mg/dL Vital Signs Temperature 36.7 C 05/17/20 07:05 Temperature Source Tympanic 05/17/20 07:05 Pulse 81 05/17/20 07:05 Pulse Rhythm Regular 05/17/20 08:10 Pulse 94 H 05/15/20 13:05 Respiratory Rate 20 05/17/20 07:05 Respiratory Effort 05/17/20 08:10 Respiratory Depth Normal 05/17/20 08:10 Respiratory Pattern Normal 05/17/20 08:10 Blood Pressure 102/68 05/17/20 07:05 Blood Pressure Mean 69 05/15/20 13:05 Blood Pressure Position Supine 05/15/20 10:42 Pulse Oximetry 95 05/17/20 07:05 Oxygen Delivery Method Room Air 05/17/20 07:05 Oxygen Flow Rate 0 05/17/20 07:05 Pain Level 0 05/17/20 03:30 Comment 05/15/20 16:23 Intake & Output 05/16/20 05/17/20 05/17/20 23:59 11:59 23:59 Intake Total 1860.00 / 2847.50 1081.25 / 1081.25 Output Total 625 / 1175 1475 / 1475 Balance 1235.00 / 1672.50 -393.75 / -393.75 Weight 50 kg Intake: IV 1500.00 / 2487.50 881.25 / 881.25 Oral 360 / 360 200 / 200 Output: Urine 625 / 1175 1475 / 1475 Other: Urine Color Yellow Yellow Urine Appearance Clear Clear Urine Odor Normal None Comment incontinent Voiding Methods Urinal Urinal Laboratory Results WBC 5.81 k/cumm (4.4-10.8) 05/16/20 07:17 RBC 3.73 m/cumm (4.50-6.00) L 05/16/20 07:17 Hgb 10.2 g/dL (13.5-17.5) L 05/16/20 07:17 Hct 32.9 % (40.0-50.0) L 05/16/20 07:17 MCV 88.2 fL (80-95) 05/16/20 07:17 MCH 27.3 pg (27.0-33.0) 05/16/20 07:17 MCHC 31.0 g/dL (32.0-36.0) L 05/16/20 07:17 RDW 18.3 % (11.8-14.1) H 05/16/20 07:17 Plt Count 238 x1000/uL (130-400) 05/16/20 07:17 MPV 9.5 fL (8.0-11.0) 05/16/20 07:17 Immature Gran % 0.3 % 05/16/20 07:17 Neutrophils % 75.8 07/11/20 07:17 Lymphocytes % 11.0 05/16/20 07:17 Monocytes % 11.7 05/16/20 07:17 Eosinophils % 0.9 05/16/20 07:17 Basophils % 0.3 05/16/20 07:17 Absolute Neutrophils 4.40 k/cumm (1.2-6.7) 05/16/20 07:17 Absolute Lymphocytes 0.64 k/cumm (1.2-3.4) L 05/16/20 07:17 Absolute Monocytes 0.68 k/cumm (0.11-0.7) 05/16/20 07:17 Absolute Eosinophils 0.05 k/cumm (0.0-0.7) 05/16/20 07:17 Absolute Basophils 0.02 k/cumm (0.0-0.2) 05/16/20 07:17 PT 11.6 sec (9.3-11.0) H 05/15/20 11:01 INR 1.2 (0.9-1.1) H 05/15/20 11:01 APTT 25.9 sec (21.0-31.4) 05/15/20 11:01 Sodium 141 mmol/L (136-145) 05/17/20 07:41 Potassium Cancelled 05/17/20 14:00 Chloride 109 mmol/L (98-107) H 05/17/20 07:41 Carbon Dioxide 22.4 mmol/L (21.0-32.0) 05/17/20 07:41 Anion Gap 9.6 mmol/L (3-11) 05/17/20 07:41 BUN 1 mg/dL (7-18) L 05/17/20 07:41 Creatinine 0.31 mg/dL (0.70-1.30) L 05/17/20 07:41 Estimated GFR/1.73 m2 >= 60.00 (mL/min/1.73m2) 05/17/20 07:41 Glucose 88 mg/dL (74-106) 05/17/20 07:41 Calcium 6.5 mg/dL (8.5-10.1) L 05/17/20 07:41 Magnesium Cancelled 05/17/20 16:00 Iron 53 ug/dL (65-175) L 05/16/20 07:17 TIBC 200 ug/dL (250-450) L 05/16/20 07:17 Transferrin % Sat 27 % (20-55) 05/16/20 07:17 Ferritin 41 ng/mL (26-388) 05/16/20 07:17 Total Bilirubin 1.4 mg/dL (0.2-1.0) H 05/16/20 07:17 Conjugated Bilirubin 0.80 mg/dL (0.00-0.20) H 05/16/20 07:17 AST 53 U/L (15-37) H 05/16/20 07:17 ALT 33 U/L (16-63) 05/16/20 07:17 Alkaline Phosphatase 53 U/L (46-116) 05/16/20 07:17 Ammonia 37 umol/L (11-32) H 05/16/20 07:17 Troponin I < 0.05 ng/mL (<0.06) 05/15/20 11:01 Total Protein 5.5 g/dL (6.4-8.2) L 05/16/20 07:17 Albumin 2.3 g/dL (3.4-5.0) L 05/16/20 07:17 Lipase 147 U/L (73-393) 05/15/20 11:01 Vitamin B12 1063 pg/mL (193-986) H 05/16/20 07:17 Folate 16.9 ng/mL (8.6-20.0) 05/16/20 07:17 Procalcitonin < 0.1 ng/mL 05/15/20 16:51 TSH 3.78 uIU/mL (0.36-3.74) H 05/16/20 07:17 Free T4 1.21 ng/dL (0.76-1.46) 05/16/20 07:17 Urine Color Yellow (Yellow) 05/15/20 13:18 Urine Clarity Clear (Clear) 05/15/20 13:18 Urine pH 7.5 (5-8) 05/15/20 13:18 Ur Specific [place] 1.010 (1.005-1.025) 05/15/20 13:18 Urine Protein Negative mg/dL (Negative) 05/15/20 13:18 Urine Ketones Negative mg/dL (Negative) 05/15/20 13:18 Urine Blood Negative (Negative) 05/15/20 13:18 Urine Nitrite Negative (Negative) 05/15/20 13:18 Urine Bilirubin Negative (Negative) 05/15/20 13:18 Urine Urobilinogen 0.2 EU/dL (Up TO 0.2) 05/15/20 13:18 Ur Leukocyte Esterase Negative (Negative) 05/15/20 13:18 Urine Glucose Negative mg/dL (Negative) 05/15/20 13:18 Urine Opiates Screen Negative (Negative) 05/15/20 13:18 Urine Methadone Screen Negative (Negative) 05/15/20 13:18 Ur Barbiturates Screen Negative (Negative) 05/15/20 13:18 Ur Tricyclics Screen Negative (Negative) 05/15/20 13:18 Ur Amphetamines Screen Negative (Negative) 05/15/20 13:18 U Benzodiazepines Scrn Negative (Negative) 05/15/20 13:18 Urine Cocaine Screen Negative (Negative) 05/15/20 13:18 Ur THC Screen Positive (Negative) A 05/15/20 13:18 Ethyl Alcohol 3.0 mg/dL (<3) 05/15/20 13:45 COVID-19 PCR Negative (Negative) 05/15/20 13:53 Nasopharyn COVID-19 PCR Not Applicable 05/15/20 13:53 Ref Test Perform Site [place] [facility] 05/15/20 13:53
[2020-05-17] MEDS: POTASSIUM CHLORIDE 20 MEQ/100 ML BAG 50 MEQ IVPB ×2 (13:04→15:35)
[2020-05-17 15:48] VITALS: BP 100/68; PULSE 81; RESP 18; TEMP 37.4; O2SAT 99
[2020-05-17 16:46] LABS: Anion Gap 8.4 mmol/L (3-11); BUN 1 mg/dL (7-18); CO2 23.6 mmol/L (21.0-32.0); CREATININE 0.52 mg/dL (0.70-1.30); Calcium 7.7 mg/dL (8.5-10.1); Chloride 103 mmol/L (98-107); Glucose 123 mg/dL (74-106); Potassium 4.6 mmol/L (3.5-5.1); Sodium 135 mmol/L (136-145)
[2020-05-17 16:47] LABS: Magnesium 2.2 mg/dL (1.8-2.4)
[2020-05-17] MEDS: IRON SUCROSE COMPLEX 200 MG in Normal Saline 100 ML 400 MG IVPB (17:30)
[2020-05-17 19:05] VITALS: BP 108/73; PULSE 83; RESP 19; TEMP 36.8; O2SAT 97
[2020-05-17] MEDS: Magnesium Oxide 400 MG TAB PO (19:55)
[2020-05-17] MEDS: Gabapentin 300 MG CAP PO (22:21)
[2020-05-17 23:09] VITALS: BP 105/69; PULSE 79; RESP 18; TEMP 37.4; O2SAT 99
[2020-05-18 03:22] VITALS: BP 105/65; PULSE 74; RESP 17; TEMP 37; O2SAT 96
[2020-05-18 07:01] LABS: Magnesium 1.8 mg/dL (1.8-2.4)
[2020-05-18 07:24] VITALS: BP 90/64; PULSE 79; RESP 18; TEMP 37.6; O2SAT 94
[2020-05-18] MEDS: Thiamine 100 MG TAB PO (07:50)
[2020-05-18] MEDS: Folic Acid 1 MG TAB PO (07:50)
[2020-05-18] MEDS: Ferrous Gluconate 324 MG TAB PO (07:50)
[2020-05-18] MEDS: guaiFENesin 600 MG TABCR PO (07:50)
[2020-05-18] MEDS: Sucralfate 1 GM TAB PO ×2 (07:50→11:00)
[2020-05-18] MEDS: Multivitamin w/Minerals TAB 1 TAB PO (07:50)
[2020-05-18] MEDS: Pantoprazole 40 MG TABCR PO (07:50)
[2020-05-18] MEDS: Potassium Chloride Liquid 20 MEQ PKT PO ×2 (07:50→13:20)
[2020-05-18] MEDS: Tiotropium/Olodaterol 10 PUFF INHALER IH (07:50)
[2020-05-18] MEDS: Magnesium Oxide 400 MG TAB PO (09:30)
[2020-05-18 09:32] VITALS: TEMP 37.2
[2020-05-18 09:50] VITALS: PULSE 140
[2020-05-18 10:11] LABS: Anion Gap 5.3 mmol/L (3-11); BUN 2 mg/dL (7-18); CO2 27.7 mmol/L (21.0-32.0); Calcium 8.3 mg/dL (8.5-10.1); Chloride 104 mmol/L (98-107); Glucose 93 mg/dL (74-106); Potassium 3.8 mmol/L (3.5-5.1); Sodium 137 mmol/L (136-145)
[2020-05-18] MEDS: Nicotine 21 MG/24 HR PATCH TD (10:22)
--- NOTE | 2020-05-18 10:26 | CMDISCH_ITS ---
LACE Index Scoring Tool - Questions: Length of Stay (in days): 3 Acuity (Admit via E.D.?): Yes Comorbidities: Chronic Pulmonary Disease, Mild Liver/Renal Disease E.D. Visits: 3 - Answers: Total Score: 14 Risk of Readmission: High Risk Care Management Discharge Reason for Hospitalization: Generalized weakness and failure to thrive. Discharge Plan: Alton's will return home with new VNA as he is declining SNF. Alton did agree to speaking to a horse riding coach or instructor; referral completed. Anticipate new VNA orders for RN/PT/OT/APPLICATION SUPPORT ANALYST; CM notified [facility] of pending referral. Alton will transport via private vehicle with family. Patient/Family Education Needs: Review discharge instructions, discuss Ask Me Three. Services Needed at Discharge: Home Health Care Services
[2020-05-18 11:11] VITALS: BP 98/62; PULSE 80; TEMP 37.1; O2SAT 99
--- NOTE | 2020-05-18 13:14 | CHAPLAIN ---
Alton was working on a word-find when I visited. I explained my role and introduced myself and Alton tells me that he is in good spirits today. He shared some personal information, telling me that he lives in [place] and has been in touch with his mom by phone. I offered ongoing support.
--- NOTE | 2020-05-18 14:17 | PT.INTREAT ---
Date of service: 05/18/20 Time of Service: 14:18 PT Notes Visit Reasons: FAILURE TO THRIVE, HYPOKALEMIA, HYPOMAGNESEMIA Inpatient Physical Therapy Treatment Note [facility] Date: 05/18/2020 SUBJECTIVE: Alton reports that he is feeling better. He indicates that he is anxious to get home. He is eating better and feeling more energetic. OBJECTIVE: [] BED MOBILITY/TRANSFERS Supine-sit: S Sit-supine: S Sit-stand: S Stand-sit:S GAIT Assistive Device: FWW in am and no AD during pm session Weight bearing: full Assist: SBA Distance: 260' during both am and pm sessions. THEREX: global LE strength and stabilization routine as well as functional mobility. See flowsheet for details. STAIRS: ascend and descend 3, 4 steps and 2, 6 steps with SBA, no railings or assistive device. ASSESSMENT: tolerated sessions well. No need for assistive device, no LOB PLAN: continue with PT POC. TREATMENT CODE/TIME: 25 min in am and 25 min in pm. [id number], [id number].
[2020-05-18 15:15] VITALS: BP 104/74; PULSE 115; RESP 18; TEMP 36.8; O2SAT 98
--- NOTE | 2020-05-18 18:11 | W.PM.DS.N ---
Date of service: 05/18/20 Time of Service: 18:11 DS: Diagnosis Discharge Diagnosis (1) Failure to thrive: Status: Chronic (2) Hypomagnesemia: Status: Acute (3) Hypokalemia: Status: Acute (4) Unintentional weight loss: Status: Acute (5) Ambulatory dysfunction: Status: Chronic (6) Alcohol abuse: Status: Chronic (7) Chronic anemia: Status: Chronic (8) COPD (chronic obstructive pulmonary disease): Status: Chronic (9) Bilateral leg pain: Status: Chronic (10) DVT prophylaxis: Status: Acute (11) Discharge planning issues: Status: Acute Discharge Plan Disposition Patient Disposition: HOME W/HOME HEALTH SERVICE Condition: Stable Discharge Details Chief Complaint: GenMedical Clinical Impression: Failure to thrive, Ambulatory dysfunction, Bilateral leg pain, Alcohol abuse, Hypokalemia Reason For Visit: FAILURE TO THRIVE, HYPOKALEMIA, HYPOMAGNESEMIA Admit Date/Time: 05/15/20 13:11 Admit Provider: Laila Ontiveros Attending Provider: Laila Ontiveros Primary Care Provider: Jonathan Black ED Provider: Sona Cardoso Hospital Course Hospital Course: This 60-year-old male with a history of alcohol abuse, previous GI bleeding and hemorrhagic shock secondary to alcoholic gastritis, COPD not requiring home oxygen, chronic anemia with iron deficiency as well as a history of frequent falls and amatory dysfunction presented to the emergency department per his PCP due to failure to thrive with involuntary weight loss and frequent falls. Patient relies on his mother to give him his medications as well as to provide meals. Patient continues to drink alcohol last drink was 2 days prior to admission. He does not have a history of alcohol withdrawal seizures but does have an essential tremor. He was admitted to the hospital because he was found to be hypomagnesemic and hypokalemic and had generalized weakness and was deconditioned. See Dr. Laila Ontiveros's admission history and physical examination for details. Also see ER physician's note. Patient was admitted to the hospital given IV fluids given IV and oral potassium and magnesium supplementation. Physical therapy was consulted and worked with the patient. With correction of his hypokalemia and hypomagnesemia his generalized weakness did improve. On his admission labs his serum potassium was as low as 2.5 and a transiently corrected on the day of admission up to 3.5 but then subsequently dropped down to 3.1 and 2.8. On the day prior to discharge his potassium was up to 4.6 and on the day of discharge it was at 3.8. BUN and creatinine remain within normal limits at 2 and 0.4 rest of his electrolytes were normal. Magnesium level on admission was low at 1.5 and transiently dropped down to 1.1 before was finally corrected up to a level of 2.2 on the day before discharge and was 1.8 on the day of discharge. Patient is recommended to have home health services including alf to monitor his electrolytes educated him about diet and assistant women's basketball coach him on alcohol abstinence. Nursing will obtain follow-up labs next week including a BMP and a magnesium level. Patient was discharged home on oral supplementation including magnesium oxide 4 mg twice a day and potassium 20 mEq 3 times a day. He was kept on all of his home medications including furosemide 20 mg daily ferrous gluconate 3 and 24 mg daily albuterol sulfate inhaler 2 puffs every 4 hours as needed as well as his GI medicines of Protonix 40 mg twice a day and Carafate 1 g before meals and at bedtime. He is to continue his Spiriva HandiHaler 1 capsule inhalation daily as well as a multivitamin and his thiamine. He was also started on gabapentin 300 mg nightly because of chronic leg pain which was felt to be secondary to his alcoholism. Home Meds and New Rx's Prescriptions: New potassium chloride 20 mEq Packet 20 meq PO TID Qty: 90 RF: 0 magnesium oxide 400 mg (241.3 mg magnesium) Tablet 400 mg PO BID@1000,2000 Qty: 60 RF: 0 gabapentin 300 mg Capsule 300 mg PO HS Qty: 30 RF: 0 Continued pantoprazole [Protonix] 40 mg tablet,delayed release (DR/EC) 40 mg PO BID Qty: 60 RF: 0 albuterol sulfate 90 mcg/actuation HFA aerosol inhaler 2 puff INHALATION Q4H PRN (Reason: bronchospasm) Qty: 18 RF: 12 Spiriva with HandiHaler 18 mcg capsule, w/inhalation device 1 cap INHALATION DAILY Qty: 60 RF: 3 ferrous gluconate 324 mg (37.5 mg iron) tablet 324 mg PO DAILY RF: 0 furosemide 20 mg tablet 20 mg PO DAILY Qty: 90 RF: 1 Therapeutic-M 1 TAB tablet 1 tab PO DAILY Qty: 30 RF: 0 thiamine HCl (vitamin B1) 100 mg tablet 100 mg PO DAILY Qty: 30 RF: 0 sucralfate [Carafate] 1 gram tablet 1 gm PO QACHS Qty: 120 RF: 0 Discontinued magnesium oxide 400 mg (241.3 mg magnesium) tablet 400 mg PO DAILY Qty: 14 RF: 0 Discharge Instructions Instructions: Failure to Thrive (DC), Hypokalemia (DC), Hypomagnesemia (DC) Stand Alone Forms: Nursing Discharge Form Referrals: Jonathan Black DO [Primary Care Provider] - (Please call to follow up in 1-2 weeks) Activity:: Activity as Tolerated Equipment/Supplies:: No Equipment Needed Diet:: As Tolerated Discharge Orders Discharge Orders: Discharge Order (Routine); Ordered 05/18/20 Ordered By: Niels Frost Other Ambulatory Orders: Basic Metabolic Panel (Routine) Timeframe: 1 Week Facility: [facility] - Location: Laboratory Outpatient Ordered By: Niels Frost Magnesium (Routine) Timeframe: 1 Week Facility: [facility] - Location: Laboratory Outpatient Ordered By: Niels Frost Discharge Data Discharge Date/Time-TO BE ENTERED AT DEPARTURE: 05/18/20 17:03 DS: Summary Status at Discharge Functional status at discharge: uses cane/walker Overall status at discharge: patient is progressing back to baseline Mental Status: mental status grossly normal Speech and Movement: speech and movement normal Mood: congruent mood Affect: normal affect Exam Psych Mental Status: mental status grossly normal Speech and Movement: speech and movement normal Mood: congruent mood Affect: normal affect DS: Data Vitals/I&O Vitals and I&O: Vital Signs Temperature 36.8 C 05/18/20 15:15 Temperature Source Temporal Artery Scan 05/18/20 15:15 Pulse 115 H 05/18/20 15:15 Pulse Rhythm Regular 05/18/20 08:57 Pulse 94 H 05/15/20 13:05 Respiratory Rate 18 05/18/20 15:15 Respiratory Effort 05/18/20 08:57 Respiratory Depth Normal 05/18/20 08:57 Respiratory Pattern Normal 05/18/20 08:57 Blood Pressure 104/74 05/18/20 15:15 Blood Pressure Mean 69 05/15/20 13:05 Blood Pressure Position Supine 05/15/20 10:42 Pulse Oximetry 98 05/18/20 15:15 Oxygen Delivery Method Room Air 05/18/20 15:15 Oxygen Flow Rate 0 05/18/20 15:15 Pain Level 0 05/18/20 15:15 Comment 05/15/20 16:23 Intake & Output 05/17/20 05/18/20 05/18/20 23:59 11:59 23:59 Intake Total 1608.333 / 2689.583 120 / 300 180 / 300 Output Total 230 / 1705 225 / 225 Balance 1378.333 / 984.583 -105 / 75 180 / 75 Weight 51.5 kg Intake: IV 1368.333 / 2249.583 Oral 240 / 440 120 / 300 180 / 300 Output: Urine 230 / 1705 225 / 225 Other: Urine Color Light Lou Yellow Urine Appearance Clear Clear Urine Odor None None Comment patient state he has been having urinary frequency but went to his been seeing his PCP for treatment Stool Size Moderate Stool Characteristics Liquid Voiding Methods Urinal Urinal Data Completed and Pending Labs on day of discharge: Labs from last 24 hours 05/18/20 05/18/20 06:15 06:15 Sodium 137 Potassium 3.8 Chloride 104 Carbon Dioxide 27.7 Anion Gap 5.3 BUN 2 L Creatinine 0.40 L Estimated GFR/1.73 m2 >= 60.00 Glucose 93 Calcium 8.3 L Magnesium 1.8 [facility] Medical History (Updated 05/16/20 @ 18:11 by Niels Frost) Abnormal abdominal CT scan (Inactive) Alcohol induced fatty liver (Acute) Alcohol use disorder (Acute) Alcohol use disorder (Acute) Anemia, iron deficiency (Acute) Arthritis (Acute) Atherosclerosis of abdominal aorta (Acute) Hopson's esophagus determined by endoscopy (Acute) Barretts esophagus (Acute) Bone spur of foot (Acute) Chronic iron deficiency anemia (Acute) COPD (chronic obstructive pulmonary disease) (Chronic) DDD (degenerative disc disease) (Acute) Dehydration (Resolved) Dehydration, mild (Resolved) Depression (Chronic) Depression with anxiety (Acute) Diverticulosis (Acute) Erosive gastritis (Acute) Erosive gastritis (Acute) Esophageal reflux (Acute) Essential tremor (Acute) Fatty liver (Acute) Gastroenteritis (Resolved) Hematemesis (Resolved) Hepatitis A (Acute) Hyperlipemia (Acute) Hypokalemia due to excessive gastrointestinal loss of potassium (Resolved) Hypomagnesemia (Acute) Insomnia (Acute) Left knee pain (Acute) LLQ abdominal pain (Acute) Low back pain (Acute) Lower extremity edema (Acute) Nonspecific ST-T wave electrocardiographic changes (Acute) Osteoarthritis (arthritis due to wear and tear of joints) (Chronic) Rectal polyp (Acute) Smoker unmotivated to quit (Resolved) Suspected COVID-19 virus infection (Inactive) Tetrahydrocannabinol (THC) use disorder, moderate, dependence (Acute) Thrombocytopenia (Chronic) Tobacco use disorder (Acute) Transaminitis (Acute) Urinary incontinence (Acute) Urinary urgency (Acute 08/14/17) Surgical History History of foot surgery (Acute) Hx of colonoscopy (Chronic) Hx of esophagogastroduodenoscopy (Chronic) Social History Smoking/Tobacco Use Status: Current every day Tobacco Type: cigarettes Smoking packs per day: 1.5 Smoking cigarettes per day: 30.0 Alcohol Intake: current Alcohol Intake frequency: 3 or more drinks per day Alcohol type: beer Drug use: Daily Substance use type: marijuana Details: No IV Drug Use Adopted: No Caregiver/Support person: No Foster care: No Household members: none Housing: house Do you need help understanding health information?: Often current occupation: Unemployed Sexually active: No Do you think of yourself as: straight/heterosexual Current gender identity: male Do you feel safe at home: Yes Do you feel safe in your relationship?: Yes
--- NOTE | 2020-05-18 18:53 | PDOC.HHF2F_ITS ---
Home Health Certification Home Health Certification: 1. Encounter Date and Reason I certify that NAVARRO KRISHNA was seen by Niels Frost on 05/18/20 and that I had a [id number] encounter with this patient that meets the physician face to face encounter requirements. 2. Clinical Findings Supporting Skilled Need and Homebound Status I certify that home health services are medically necessary, include either intermittent fdc and/or physical/speech therapy, and that this patient is homebound in that absences from the home require considerable and taxing effort and are infrequent or of short duration, or are attributable to the need to receive medical care. [X] (a) Attached documentation from encounter provides clinical findings supporting skilled need and homebound status (including what assistance patient requires to leave the home). The encounter with the patient was in whole, or in part, for the following medical condition, which is the primary reason for home health care: FAILURE TO THRIVE, HYPOKALEMIA, HYPOMAGNESEMIA Assisted: Patient requires home nursing to monitor his electrolytes and draw labs for follow-up as well as educate the patient regarding nutritional needs and treatment of his electrolyte disorder. Nursing to monitor his medication compliance and to educate the patient about the need for his home medications. Nursing to coordinate with patient's PCP regarding any medication changes as well as any follow-up labs. concert or lecture hall manager to coordinate the patient's home health services as well as to work with the patient to ensure that he has adequate insurance coverage to provide for his medications and for his follow-up medical care. Physical Therapy: Patient requires home physical therapy to address his chronic debilitated state and generalized weakness as well as to improve his ambulatory function. Physical therapy to continue treatments from where the patient left off upon discharge from the hospital. Please coordinate with inpatient physical therapist regarding goals. Speech Therapy: Homebound: Patient is generalized weakness secondary to his alcoholism and his electrolyte disorder makes it unsafe for the patient to travel outside his home in order to receive the above services. 3. Certification and Authentication I certify that I composed the above information based on my clinical judgement relating to this patient's medical condition and, if applicable, clinical findings communicated to me by the NPP or inpatient physician who performed the Home Health Referral. All further orders will be obtained through Dr. Jonathan Black (Community Based Physician - PCP)
--- NOTE | 2020-05-19 16:30 | PT.INDS ---
Date of service: 05/19/20 PT Notes Visit Reasons: FAILURE TO THRIVE, HYPOKALEMIA, HYPOMAGNESEMIA Inpatient Physical Therapy Discharge Summary Dates: 05/19/2020 Dates of Service: 05/16/2020 through 05/18/2020 This is a clinical summary of care provided on the duration of dates listed above. No charge was made in the completion of this documentation. Referring Doctor: Laila Ontiveros MD PT Orders: PT CONSULT: Limited ability Precautions: Standard, Fall Patient Profile/Admitting Diagnosis: Orders received for this 60-year-old male who was until recently independently live at his home in [place]. Patient describes his living situation as in a trailer however he does have family member live close and are able to offer support when needed. Patient has noted a steady decline for the last couple months now. He has lost a significant amount of weight mainly due to the fact he is not hungry. He feels like he has no strength through his leg but now he starts to notice that there is also some strength loss through the arms as well. He has had a few falls recently. Patient was admitted to the hospital after a PCP visit in which he was noted to be in a significant state of failure to thrive. PMHX: Medical History (Updated 05/15/20 @ 19:01 by Laila Ontiveros MD) Abnormal abdominal CT scan (Inactive) Alcohol induced fatty liver (Acute) Alcohol use disorder (Acute) Alcohol use disorder (Acute) Anemia, iron deficiency (Acute) Arthritis (Acute) Atherosclerosis of abdominal aorta (Acute) Hopson's esophagus determined by endoscopy (Acute) Barretts esophagus (Acute) Bone spur of foot (Acute) Chronic iron deficiency anemia (Acute) COPD (chronic obstructive pulmonary disease) (Chronic) DDD (degenerative disc disease) (Acute) Dehydration (Resolved) Dehydration, mild (Resolved) Depression (Chronic) Depression with anxiety (Acute) Diverticulosis (Acute) Erosive gastritis (Acute) Erosive gastritis (Acute) Esophageal reflux (Acute) Essential tremor (Acute) Fatty liver (Acute) Gastroenteritis (Resolved) Hematemesis (Resolved) Hepatitis A (Acute) Hyperlipemia (Acute) Hypokalemia due to excessive gastrointestinal loss of potassium (Resolved) Hypomagnesemia (Acute) Insomnia (Acute) Left knee pain (Acute) LLQ abdominal pain (Acute) Low back pain (Acute) Lower extremity edema (Acute) Nonspecific ST-T wave electrocardiographic changes (Acute) Osteoarthritis (arthritis due to wear and tear of joints) (Chronic) Rectal polyp (Acute) Smoker unmotivated to quit (Resolved) Suspected COVID-19 virus infection (Inactive) Tetrahydrocannabinol (THC) use disorder, moderate, dependence (Acute) Thrombocytopenia (Chronic) Tobacco use disorder (Acute) Transaminitis (Acute) Urinary incontinence (Acute) Urinary urgency (Acute 08/14/17) Surgical History History of foot surgery (Acute) Hx of colonoscopy (Chronic) Hx of esophagogastroduodenoscopy (Chronic) Social History/Home Situation: Patient lives in a trailer in [facility]. His mother lives close by and is offered to set since and is ready when needed Equipment Owned/DME: It is unclear whether patient has any significant equipment Subjective: NT Objective: NT Mental Status: NT Pain: NT ROM: Right Upper Extremity: Within functional limits Left Upper Extremity: Within functional limits Right Lower Extremity: Within functional limit Left Lower Extremity: Within functional limit Strength: Right Upper Extremity: Globally 4+ out of 5 Left Upper Extremity: Globally 4,+ out of 5 Right Lower Extremity: Hip flexion 4-5, quads 4+ out of 5, hamstrings 4+ out of 5, dorsiflexion and plantarflexion 4+out of 5 Left Lower Extremity: Hip flexion 4-5, quads 4+ out of 5, hamstrings 4+ out of 5, dorsiflexion and plantarflexion 4+out of 5 Bed Mobility/Transfers: Able to negotiate supine to sit transfer however does need minor assistance in terms of contact-guard and with help with linen Sit-stand: S Stand-sit: S Bed-toilet: S Gait: 260 feet with use of front wheel walker and SBA, demonstrates mild ataxia with a slight lateral deviation in his gait path Balance: Static Sitting: Good Dynamic Sitting: Good Static Standing: Fair Dynamic Standing: Poor ASSESSMENT: Patient is a 60-year-old male with a history of recent health conditions affecting function admitted with hypokalemia, failure to thrive, hypomagnesia. He will benefit from PT services in order to continue with functional mobility progression. Goals: Goals X1 week 1. Sit-Stand independent NOT MET 2. Stand-Sit Independent NOT MET 3. Bed-Chair Independent NOT MET 4. Gait independent with least restrictive assistive device 300 feet NOT MET 5: Stairs patient able to negotiate 3 stairs NOT MET 6: Independent in Home program NOT MET DISCHARGE RECOMMENDATIONS: Unless patient makes a remarkable recovery currently at this state he is not able to fill independent living at home. Patient may require mcc placement in order to build up his strength as well as trained in functional ADLs. Patient is able to gain a little more mobility during his admission he may be able to be discharged home safely but with a significant need for home health services for appropriate management as well as home health physical therapy services for continued strength and conditioning TREATMENT CODE/TIME: ANTHONY Thank you for the opportunity to participate in the care of this patient. Sabina Kumar PT, DPT, CLT [facility] [place], [place]
== END 2020-05-18 17:03 | disposition home health service (06) ==
LOC: ER 13:39 → MS 14:18
PROVIDERS: Nurse Practitioner Family; Admitting Provider Internal Medicine; Emergency Provider Physician Assistant; PCP Family Medicine; Visit Provider Internal Medicine
DX: R62.7 Adult failure to thrive (principal); J44.9 Chronic obstructive pulmonary disease, unspecified; E83.42 Hypomagnesemia; E87.6 Hypokalemia; R53.1 Weakness; R63.4 Abnormal weight loss; R26.2 Difficulty in walking, not elsewhere classified; F10.10 Alcohol abuse, uncomplicated; D50.9 Iron deficiency anemia, unspecified; M79.605 Pain in left leg; M79.604 Pain in right leg; R29.6 Repeated falls; G25.0 Essential tremor
CPT/HCPCS: 36415; 74177; 80048; 80053; 80076; 80307; 83690; 84145; 93005; 94640; 96361; 96365; 96366; 97110; 97162; 97530; 99220; 99233; 99239; 99285; U0003; 70450; 71260; 72125; 80320; 81003; 82140; 82607; 82728; 82746; 83540; 83550; 83735; 84132; 84439; 84443; 84484; 85025; 85610; 85730; 93010; 93970; 99217; 99226; G0378; J1756; J3475; J3480; J3490

== ENCOUNTER 2020-06-05 02:10 | Outpatient (CLI) | payer MEDICAID, SELFPAY ==
[2020-06-05 10:34] LABS: Anion Gap 10.6 mmol/L (3-11); BUN 3 mg/dL (7-18); CO2 27.4 mmol/L (21.0-32.0); Calcium 8.2 mg/dL (8.5-10.1); Chloride 102 mmol/L (98-107); Glucose 136 mg/dL (74-106); Magnesium 1.7 mg/dL (1.8-2.4); Potassium 3.7 mmol/L (3.5-5.1); Sodium 140 mmol/L (136-145)
== END 2020-06-05 02:30 ==
PROVIDERS: PCP Family Medicine; Visit Provider Internal Medicine
DX: E87.6 Hypokalemia (principal); Z79.899 Other long term (current) drug therapy; E83.42 Hypomagnesemia
CPT/HCPCS: 36415; 80048; 83735

== ENCOUNTER 2020-07-02 04:31 | Outpatient (CLI) | payer MEDICAID, SELFPAY ==
[2020-07-02 10:06] LABS: Abs Immature Grans 0.01 10^3/uL (0.0-0.06); Absolute Basophil Count 0.05 10^3/uL (0.0-0.2); Absolute Eosinophil Count 0.14 10^3/uL (0.0-0.7); Absolute Lymphocyte Count 1.34 10^3/uL (1.2-3.4); Absolute Monocyte Count 0.69 10^3/uL (0.1-0.8); Absolute Neutrophil Count 3.09 10^3/uL (1.2-6.7); Basophils % 0.9; Eosinophils % 2.6; HCT 38.9 % (40.0-50.0); HGB 12.6 g/dL (13.5-17.5); Immature Grans % 0.2; Lymphocytes % 25.2; MCH 30.3 pg (27.0-33.0); MCHC 32.4 % (32.0-36.0); MCV 93.5 fL (80-95); Neutrophils % 58.1; Nucleated RBC 0 %; Platelet Count 157 10^3/uL (130-400); RBC 4.16 10^6/uL (4.36-5.78); RDW 17.6 % (11.8-14.1); WBC 5.32 10^3/uL (4.4-10.8)
== END 2020-07-02 04:51 ==
PROVIDERS: PCP Family Medicine; Visit Provider Family Medicine
DX: D50.0 Iron deficiency anemia secondary to blood loss (chronic) (principal)
CPT/HCPCS: 36415; 85025

== ENCOUNTER 2020-09-01 12:20 | Outpatient (REF) | payer MEDICAID, SELFPAY | END 2020-09-01 12:40 | LOC: LBN 12:20 | PROVIDERS: PCP Family Medicine; Visit Provider Family Medicine | DX: N39.0 Urinary tract infection, site not specified (principal) | CPT/HCPCS: 87086 ==

== ENCOUNTER 2020-09-02 02:32 | Outpatient (CLI) | payer MEDICAID, SELFPAY ==
--- NOTE | 2020-09-02 07:15 | DI.RAD_ITS ---
EXAM: XR CHEST 2V PA LATERAL CLINICAL HISTORY: Evaluate for pneumonia, focus on R side, upper,RESPIRATORY INFECTION,J22 TECHNIQUE: COMPARISON: CR,XR XR LINE PLACEMENT PICC/CVA from 02/22/[address] CHEST/ABD/PEL W from 05/15/2020 FINDINGS: There is mild pulmonary hyperinflation. The lungs appear clear but hyperinflated. No pleural effusio n seen. Cardiac size within normal limits. No mediastinal contour abnormality seen. IMPRESSION: Pulmonary hyperinflation, presumably on the basis of COPD. No focal pulmonary consolidation. RADIATION DOSE DELIVERED: Total DLP
== END 2020-09-02 02:52 ==
PROVIDERS: PCP Family Medicine; Visit Provider Family Medicine
DX: R91.8 Other nonspecific abnormal finding of lung field (principal); J22 Unspecified acute lower respiratory infection
CPT/HCPCS: 71046

== ENCOUNTER 2020-11-11 11:44 | Inpatient (IN) | payer MEDICAID, SELFPAY ==
[2020-11-11] VITALS (120 sets, daily range): BP systolic 67–119; BP diastolic 32–81; PULSE 77–146; RESP 9–40; TEMP 35.7–36.8; O2SAT 80–100
--- NOTE | 2020-11-11 | DI.US_ITS ---
EXAM: US EXTREMITY VENOUS BI CLINICAL HISTORY: BLE edema TECHNIQUE: Grayscale, color, and doppler imaging of the deep venous system of both lower extremities was performed. COMPARISON: US US EXTREMITY VENOUS BI from 05/15/2020 FINDINGS: There is normal compression and augmentation demonstrated within the common femoral veins, femoral ve ins, and popliteal veins of both lower extremities. In the calves the interrogated veins also exhibit normal compression/ augmentation properties. The greater saphenous veins also appear patent as do the saphenofemoral junctions bilaterally.. IMPRESSION: 1. No ultrasound evidence of DVT in either lower extremity. DATA REPOSITORY:
--- NOTE | 2020-11-11 | DI.RAD_ITS ---
EXAM: XR PORTABLE CHEST AP CLINICAL HISTORY: sepsis. TECHNIQUE: 2D digital imaging was performed. COMPARISON: CR XR CHEST 2V PA LATERAL from 09/02/2020 FINDINGS: Heart size is normal. The mediastinum is not widened. Lungs are clear. No infiltrates nor obvious pleural effusions. IMPRESSION: No acute pulmonary findings on this single AP portable view of the chest. DATA REPOSITORY: RADIATION DOSE DELIVERED:
--- NOTE | 2020-11-11 11:30 | RT.EKG_ITS ---
APPROVED REPORT Exam: Resting ECG Patient Location: E HR:83 bpm ECG Measurements Heart Rate 83 AXIS TX 120 P 87 QRSd 94 QRS 21 QT 427 T 47 QTc 491 Conclusion Sinus rhythm...normal P axis, V-rate 60- 99 Low voltage, extremity and precordial leads...extremity<0.5mV, precordial<1.0mV
[2020-11-11 12:09] LABS: Abs Immature Grans 0.11 10^3/uL (0.0-0.06); Absolute Basophil Count 0.02 10^3/uL (0.0-0.2); Absolute Eosinophil Count 0.02 10^3/uL (0.0-0.7); Absolute Neutrophil Count 13.69 10^3/uL (1.2-6.7); Basophils % 0.1; Eosinophils % 0.1; HCT 23.6 % (40.0-50.0); HGB 7.6 g/dL (13.5-17.5); Immature Grans % 0.7; Lymphocytes % 6.9; MCH 30.2 pg (27.0-33.0); MCHC 32.2 % (32.0-36.0); MCV 93.7 fL (80-95); MPV 10.8 fL (8.0-11.0); Monocytes % 10.2; Nucleated RBC 0 %; RBC 2.52 10^6/uL (4.36-5.78); RDW 22.6 % (11.8-14.1); RDW-SD 71.5 fL
[2020-11-11 12:12] LABS: Absolute Lymphocyte Count 1.15 10^3/uL (1.2-3.4)
[2020-11-11 12:21] LABS: ALT 23 U/L (16-63); AST 83 U/L (15-37); Albumin 2.2 g/dL (3.4-5.0); Alkaline Phosphatase 54 U/L (46-116); Anion Gap 20.9 mmol/L (3-11); BUN 22 mg/dL (7-18); Bilirubin, Total 4.4 mg/dL (0.2-1.0); CO2 26.1 mmol/L (21.0-32.0); CREATININE 1.64 mg/dL (0.70-1.30); Calcium 6.6 mg/dL (8.5-10.1); Chloride 92 mmol/L (98-107); Estimated GFR 43.36 (mL/min/1.73m2); Glucose 99 mg/dL (74-106); Lipase 38 U/L (73-393); Sodium 139 mmol/L (136-145); Total Protein 6.1 g/dL (6.4-8.2)
[2020-11-11] MEDS: Normal Saline Flush 10 ML SYR IVP ×4 (12:21→19:10)
[2020-11-11] MEDS: Lactated Ringers 1,000 ML 125 ML IV (12:36)
[2020-11-11] MEDS: POTASSIUM CHLORIDE 20 MEQ/100 ML BAG 50 MEQ IVPB ×4 (12:36→21:51)
[2020-11-11 12:47] LABS: Anisocytosis 2+; Diff Comment Agrees w/ Instrument; Platelet Count 211 10^3/uL (130-400); Poikilocytes 2+; Target Cells 2+
--- NOTE | 2020-11-11 12:48 | W.ED.GENAD ---
Discharge Plan Disposition Patient Disposition: [facility] INPATIENT Condition: Critical Discharge Details Clinical Impression: Acute hypokalemia, Hypomagnesemia, Melena, Anemia, Adult failure to thrive Admit Date/Time: 11/11/20 13:45 Admit Provider: Laila Ontiveros Attending Provider: Laila Ontiveros Primary Care Provider: Jonathan Black ED Provider: Denis Carrillo Discharge Data Discharge Date/Time-TO BE ENTERED AT DEPARTURE: 11/11/20 15:07 Medical Decision Making 60-year-old male with multiple medical problems including history of COPD, alcohol use disorder, anemia, Hopson's esophagus, here with generalized weakness, confusion, increased urinary freq, dysuria, medication noncompliance. Patient with greneralized weakness. Not able to ambulate. Bilateral peripheral edema. Patient is hemodynamically stable on arrival. Screening ECG was reviewed and interpreted by me: Please see report, nondiagnostic. Initial labs reviewed: Leukocytosis noted, anemia noted, critically low potassium as well as critically low magnesium. Patient was initially started on potassium 20 mEq IV and magnesium 1 g IV. Patient will need additional electrolyte replacement. Patient has yet to provide urinary specimen. Patient will require admission and ongoing critical care. I spoke with Dr. Ontiveros and we discussed ED presentation and course. We collaborated and reviewed resulted labs. Patient anemic which is acute drop since last 06/25. Patient has melena and heme positive. Reviewed recent endoscopy report that 02/23 that revealed gastritis and no varices. I will initiate treatment with Protonix 40 mg IV. Type and screen sent. I spoke with Dr. Watkins who will consult on patient with plan for endoscopy. Plan to admit to hospitalist service, patient to be admitted and transferred to ICU. HPI General Mode of arrival: EMS. Date/Time Provider Initiated Documentation: 11/11/20 12:16. Limitations to Documentation: altered mental status. Information obtained by: patient, family and EMS. HPI Narrative: 60-year-old male with multiple medical problems found at home by his mother with altered mental status and generalized weakness. Patient notes he has been weak for a few days. Symptoms are moderate. No modifiers. History is limited secondary to his altered mental status. He denies any pain at this time but does state that he has had some intermittent abdominal discomfort. He also notes increased urinary frequency and dysuria at times. He denies headache. He denies fever. He states he has been taking his medication although his mother notes that he has not been taking his medication on review of his meds. Related Data Home Medications Medication Instructions Recorded Confirmed Therapeutic-M 1 tab PO DAILY #30 tab 12/12/17 11/11/20 albuterol sulfate 90 mcg/actuation 2 puff INHALATION Q4H PRN #18 gm 02/14/20 11/11/20 aerosol inhaler furosemide 20 mg tablet 20 mg PO DAILY #90 tab 05/14/20 11/11/20 pantoprazole 40 mg tablet,delayed 40 mg PO BID #180 tab 05/19/20 11/11/20 release thiamine HCl (vitamin B1) 100 mg 100 mg PO DAILY #90 tab 05/19/20 11/11/20 tablet blister packed meds PO 06/11/20 06/30/20 tiotropium bromide 18 mcg capsule 1 cap INHALATION DAILY #60 inh 06/11/20 11/11/20 with inhalation device mirtazapine 30 mg tablet 30 mg PO QHS #90 tab 06/30/20 11/11/20 gabapentin 300 mg capsule 300 mg PO HS #30 cap 07/09/20 11/11/20 magnesium oxide 400 mg (241.3 mg 400 mg PO BID@1000,2000 #60 tab 07/09/20 11/11/20 magnesium) tablet ondansetron HCl 4 mg tablet 4 mg PO Q6H PRN #30 tab 09/01/20 11/11/20 diaper,brief,adult,disposable #14 ea 11/03/20 Previous Rx's Medication Instructions Recorded Therapeutic-M 1 tab PO DAILY #30 tab 12/12/17 albuterol sulfate 90 mcg/actuation 2 puff INHALATION Q4H PRN #18 gm 02/14/20 aerosol inhaler furosemide 20 mg tablet 20 mg PO DAILY #90 tab 05/14/20 pantoprazole 40 mg tablet,delayed 40 mg PO BID #180 tab 05/19/20 release thiamine HCl (vitamin B1) 100 mg 100 mg PO DAILY #90 tab 05/19/20 tablet tiotropium bromide 18 mcg capsule 1 cap INHALATION DAILY #60 inh 06/11/20 with inhalation device mirtazapine 30 mg tablet 30 mg PO QHS #90 tab 06/30/20 gabapentin 300 mg capsule 300 mg PO HS #30 cap 07/09/20 magnesium oxide 400 mg (241.3 mg 400 mg PO BID@1000,2000 #60 tab 07/09/20 magnesium) tablet ondansetron HCl 4 mg tablet 4 mg PO Q6H PRN #30 tab 09/01/20 Allergies Allergy/AdvReac Type Severity Reaction Status Date / Time No Known Allergies Allergy Verified 11/11/20 12:09 General Stated Complaint: AMS/LOC YOGI: 2 Review of Systems Unobtainable due to mental status Constitutional Constitutional: Denies fever(s) Cardiovascular Cardiovascular: Denies chest pain Gastrointestinal Gastrointestinal: Denies melena and Denies hematochezia PFSH Medical History Abnormal abdominal CT scan Alcohol induced fatty liver Alcohol use disorder Alcohol use disorder Anemia, iron deficiency Arthritis Atherosclerosis of abdominal aorta Hopson's esophagus determined by endoscopy Barretts esophagus Bone spur of foot Chronic iron deficiency anemia COPD (chronic obstructive pulmonary disease) DDD (degenerative disc disease) Dehydration Dehydration, mild Depression Depression with anxiety Diverticulosis Erosive gastritis Erosive gastritis Esophageal reflux Essential tremor Fatty liver Gastroenteritis Hematemesis Hepatitis A Hyperlipemia Hypokalemia due to excessive gastrointestinal loss of potassium Hypomagnesemia Insomnia Left knee pain LLQ abdominal pain Low back pain Lower extremity edema Nonspecific ST-T wave electrocardiographic changes Osteoarthritis (arthritis due to wear and tear of joints) Rectal polyp Smoker unmotivated to quit Suspected COVID-19 virus infection Tetrahydrocannabinol (THC) use disorder, moderate, dependence Thrombocytopenia Tobacco use disorder Transaminitis Urinary incontinence Urinary urgency (08/14/17) Surgical History History of foot surgery Hx of colonoscopy Hx of esophagogastroduodenoscopy Family History Sister Anxiety Depression Father Cancer Social History Smoking/Tobacco Use Status: Current every day Tobacco Type: cigarettes Smoking packs per day: 1.5 Smoking cigarettes per day: 30.0 Smoking risk assessment performed?: Yes Alcohol Intake: current Alcohol Intake frequency: 3 or more drinks per day Alcohol type: beer Drug use: Daily Substance use type: marijuana Details: No IV Drug Use Adopted: No Caregiver/Support person: No Foster care: No Household members: none Housing: house Do you need help understanding health information?: Often current occupation: Unemployed Sexually active: No Do you think of yourself as: straight/heterosexual Current gender identity: male Do you feel safe at home: Yes Do you feel safe in your relationship?: Yes Exam Const General: cooperative and no acute distress HENMT Head: normocephalic and atraumatic Mouth: mucous membranes dry Eyes Conjunctivae: normal conjunctivae EOM: EOM intact bilaterally Neck Neck: trachea midline and supple Resp Auscultation: clear to auscultation bilaterally, no rales, no rhonchi and no wheezes Cardio Jugular venous pressure: no JVD Rate: regular rate and not tachycardic Rhythm: regular rhythm GI Palpation: soft, not firm, no guarding, no masses, not rigid and nontender Skin General skin exam: no rashes or lesions noted Neuro General: patient alert, patient awake, oriented Patient Orientation: Person, Place and Confused (President Faby and Nov 2000) and tone normal Cranial Nerves: CN's II-XI intact bilaterally Cognition: abnormal cognition Speech: speech normal Motor: other (2 out of 5 strength b/l lower extremities, 4 out of 5 upper ext) Sensory Exam: no sensory deficits noted Extrem General: edema Laterality: bilateral (2+ pitting) Psych Appearance: grossly normal Course Vital Signs Vital signs: Vital Signs Temperature 36.8 C 11/11/20 11:44 Pulse 82 11/11/20 11:44 Respiratory Rate 17 11/11/20 11:44 Blood Pressure 102/60 11/11/20 11:44 Pulse Oximetry 97 11/11/20 11:44 Temperature 36.8 C 11/11/20 11:44 Temperature Source Temporal Artery Scan 11/11/20 11:44 Pulse 82 11/11/20 11:44 Respiratory Rate 20 11/11/20 12:19 Respiratory Effort 11/11/20 12:19 Respiratory Depth Normal 11/11/20 12:19 Respiratory Pattern Normal 11/11/20 12:19 Blood Pressure 102/60 11/11/20 11:44 Blood Pressure Position Sitting 11/11/20 11:44 Pulse Oximetry 97 11/11/20 11:44 Oxygen Delivery Method Room Air 11/11/20 11:44 Oxygen Flow Rate 0 11/11/20 11:44 Pain Level 0 11/11/20 11:44 Lab/Test Results Lab/Test Results: Laboratory Tests Range/Units 11/11/20 12:02 WBC (4.4-10.8) 10^3/uL 16.70 H RBC (4.36-5.78) 10^6/uL 2.52 L Hgb (13.5-17.5) g/dL 7.6 L Hct (40.0-50.0) % 23.6 L MCV (80-95) fL 93.7 MCH (27.0-33.0) pg 30.2 MCHC (32.0-36.0) % 32.2 RDW (11.8-14.1) % 22.6 H Plt Count (130-400) 10^3/uL 211 MPV (8.0-11.0) fL 10.8 Immature Gran % 0.7 Neutrophils % 82.0 Lymphocytes % 6.9 Monocytes % 10.2 Eosinophils % 0.1 Basophils % 0.1 Nucleated RBC % % 0 Absolute Neutrophils (1.2-6.7) 10^3/uL 13.69 H Absolute Lymphocytes (1.2-3.4) 10^3/uL 1.15 L Absolute Monocytes (0.1-0.8) 10^3/uL 1.70 H Absolute Eosinophils (0.0-0.7) 10^3/uL 0.02 Absolute Basophils (0.0-0.2) 10^3/uL 0.02 RBC Morphology See below Poikilocytosis 2+ Anisocytosis 2+ Critical Care Time Critical Care Time Critical Care Time: Yes Total Critical Care Time: 40 Attestation: I spent greater than 40 minutes addressing this patient's immediate life threats. Please see MDM section of note. This time was spent engaged in work directly related to the patient's care, exclusive of separate procedures, and failure to initiate these interventions would have likely resulted in clinically significant or life threatening deterioration in the patient's condition.
[2020-11-11] MEDS: THIAMINE 100 MG in Normal Saline 100 ML 200 MG IVPB (12:51)
[2020-11-11 13:07] LABS: Potassium 1.8 mmol/L (3.5-5.1)
[2020-11-11 13:17] LABS: Magnesium 1.1 mg/dL (1.8-2.4)
[2020-11-11 13:22] LABS: ETHANOL BLOOD < 3.0 mg/dL (<3)
[2020-11-11] MEDS: MAGNESIUM SULFATE 1 GM/100 ML BAG IVPB (13:36)
[2020-11-11] MEDS: Pantoprazole 40 MG VIAL IVP ×2 (14:36→19:10)
--- NOTE | 2020-11-11 16:11 | W.PM.HP.N ---
Date of service: 11/11/20 Time of Service: 15:45 Assessment and Plan Assessment and plan (1) Anemia due to acute blood loss: Status: Acute Assessment and plan: Likely due to recurrent upper GI bleeding in setting of h/o erosive esophagitis, ongoing alcohol abuse, and medication noncompliance. Will trend H/H. Written for PPI Q12hrs, carafate. NPO. General surgery consulted. (2) Upper GI bleeding: Status: Acute Assessment and plan: As above (3) Acute hypokalemia: Status: Acute Assessment and plan: Replete; also replete magnesium. Repete level pending now. Will also recheck at 10 pm. Monitor in the ICU. (4) Hypomagnesemia: Status: Acute Assessment and plan: Replete. Recheck at 10 pm. (5) Leucocytosis: Status: Acute Assessment and plan: Suspected to be due to a UTI, for which the patient was initiated on empiric ceftriaxone. Await UA/C&S. Blood cultures also ordered. (6) Urinary tract infection symptoms: Status: Acute Assessment and plan: As above. Insert walters catheter given ANNALISA. (7) Painless jaundice: Status: Acute Assessment and plan: Obtain US abdomen. (8) ANNALISA (acute kidney injury): Status: Acute Assessment and plan: Does appear clinically dry. Will gently hydrate. (9) Alcohol abuse: Status: Chronic Assessment and plan: Monitor on CIWA. Provide vitamins/thiamine. (10) COPD (chronic obstructive pulmonary disease): Status: Chronic Assessment and plan: not in acute exacerbation. Continue home therapy (11) DVT prophylaxis: Status: Acute Assessment and plan: TEDs/SCDs. Chemical DVT ppx is contraindicated in setting of active GI bleeding (12) Discharge planning issues: Status: Acute Assessment and plan: Full code. Admit to ICU. Palliative care consulted. Total Critical Care Time 1 hr and 15 minutes. History of Present Illness History of Present Illness Chief Complaint: AMS Narrative: Mr Awad is a 60 year old male with PMHx of chronic iron deficiency anemia, upper GI bleeding due to erosive esophagitis, but no evidence of varices previously, non-oxygen dependent COPD, alcohol abuse (patient thinks his last drink was 2 days ago), fatty liver, medication noncompliance, who lives at home and whose mother checks on him, who was brought to [facility] ED today by EMS for confusion and failure to thrive. He had black stool in his briefs, was hemoccult positive in the ED, and, though confused, told one of the nurses that he had black diarrhea for two weeks. He is a poor history provider and denies this to me. His H/H was 7.6/23.6, down from his usual 10/30. He has not been taking his medications for at least two weeks, as evidences by his unopened bobble packs. Additionally, in the ED, he was found to have a potassium of 1.8, Magnesium of 1.1. In the ED, he endorsed dysuria, but no UA has yet been obtained. He denies symptoms of or exposure to COVID-19, but was considered a PUI as he was an unreliable historian, had a slight cough, and was complaining of diarrhea. We were asked to admit the patient for further care. The patient was admitted to [facility] ICU. Review of Systems All systems reviewed & are unremarkable except as noted in HPI and below [facility] Medical History (Updated 11/11/20 @ 16:48 by Laila Ontiveros MD) Abnormal abdominal CT scan Alcohol induced fatty liver Alcohol use disorder Alcohol use disorder Anemia, iron deficiency Arthritis Atherosclerosis of abdominal aorta Hopson's esophagus determined by endoscopy Barretts esophagus Bone spur of foot Chronic iron deficiency anemia COPD (chronic obstructive pulmonary disease) DDD (degenerative disc disease) Dehydration Dehydration, mild Depression Depression with anxiety Diverticulosis Erosive gastritis Erosive gastritis Esophageal reflux Essential tremor Fatty liver Gastroenteritis Hematemesis Hepatitis A Hyperlipemia Hypokalemia due to excessive gastrointestinal loss of potassium Hypomagnesemia Insomnia Left knee pain LLQ abdominal pain Low back pain Lower extremity edema Nonspecific ST-T wave electrocardiographic changes Osteoarthritis (arthritis due to wear and tear of joints) Rectal polyp Smoker unmotivated to quit Suspected COVID-19 virus infection Tetrahydrocannabinol (THC) use disorder, moderate, dependence Thrombocytopenia Tobacco use disorder Transaminitis Urinary incontinence Urinary urgency (08/14/17) Surgical History History of foot surgery Hx of colonoscopy Hx of esophagogastroduodenoscopy Family History Sister Anxiety Depression Father Cancer Social History Smoking/Tobacco Use Status: Current every day Tobacco Type: cigarettes Smoking packs per day: 1.5 Smoking cigarettes per day: 30.0 Smoking risk assessment performed?: Yes Alcohol Intake: current Alcohol Intake frequency: 3 or more drinks per day Alcohol type: beer Drug use: Daily Substance use type: marijuana Details: No IV Drug Use Adopted: No Caregiver/Support person: No Foster care: No Household members: none Housing: house Do you need help understanding health information?: Often current occupation: Unemployed Sexually active: No Do you think of yourself as: straight/heterosexual Current gender identity: male Do you feel safe at home: Yes Do you feel safe in your relationship?: Yes Meds Home Medications and Allergies Home Medications Medication Instructions Recorded Confirmed Type Therapeutic-M 1 tab PO DAILY #30 tab 12/12/17 11/11/20 Rx albuterol sulfate 90 mcg/actuation 2 puff INHALATION Q4H PRN #18 gm 02/14/20 11/11/20 Rx aerosol inhaler furosemide 20 mg tablet 20 mg PO DAILY #90 tab 05/14/20 11/11/20 Rx pantoprazole 40 mg tablet,delayed 40 mg PO BID #180 tab 05/19/20 11/11/20 Rx release thiamine HCl (vitamin B1) 100 mg 100 mg PO DAILY #90 tab 05/19/20 11/11/20 Rx tablet blister packed meds PO 06/11/20 06/30/20 History tiotropium bromide 18 mcg capsule 1 cap INHALATION DAILY #60 inh 06/11/20 11/11/20 Rx with inhalation device mirtazapine 30 mg tablet 30 mg PO QHS #90 tab 06/30/20 11/11/20 Rx gabapentin 300 mg capsule 300 mg PO HS #30 cap 07/09/20 11/11/20 Rx magnesium oxide 400 mg (241.3 mg 400 mg PO BID@1000,2000 #60 tab 07/09/20 11/11/20 Rx magnesium) tablet ondansetron HCl 4 mg tablet 4 mg PO Q6H PRN #30 tab 09/01/20 11/11/20 Rx diaper,brief,adult,disposable #14 ea 11/03/20 History Allergies Allergy/AdvReac Type Severity Reaction Status Date / Time No Known Allergies Allergy Verified 11/11/20 12:09 Exam Narrative Exam Narrative: General: unkempt middle-aged male, cachectic, rastafarian wasting, answers some questions appropriately, but not consistently; jaundiced Neurological: A&Ox2, tremulous (h/o essential tremor) Psychiatric: Difficult to fully evaluate, but cooperative. Sees the color blue in the corner of the room, but then states he does not - ?hallucinating Skin: dry/intact HEENT: Atraumatic, normocephalic, rastafarian wasting, EOMI, dry MM, clear oropharynx, no submandibular or cervical lymphadenopathy, no goiter or JVD Cardiovascular: RRR with frequent extra beats (corresponding to PVCs on the monitor) Lungs: rhonchi on expiration R>L Gastrointestinal: soft,nontender, nondistended Genitourinary: deferred Extremities: +1 BLE edema, no c/c. Results Imaging Additional studies: CXR: No acute pulmonary findings on this single AP portable view of the chest. Venous dopplers BLE's: 1. No ultrasound evidence of DVT in either lower extremity. EKG: NSR, HR 79, occasional PVC, no acute ischemia Labs Result diagrams: 11/11/20 12:02 11/11/20 12:02 Labs: Laboratory Results - last 24 hr 11/11/20 11/11/20 11/11/20 12:02 12:02 12:02 WBC 16.70 H RBC 2.52 L Hgb 7.6 L Hct 23.6 L MCV 93.7 MCH 30.2 MCHC 32.2 RDW 22.6 H Plt Count 211 MPV 10.8 Immature Gran % 0.7 Neutrophils % 82.0 Lymphocytes % 6.9 Monocytes % 10.2 Eosinophils % 0.1 Basophils % 0.1 Nucleated RBC % 0 Absolute Neutrophils 13.69 H Absolute Lymphocytes 1.15 L Absolute Monocytes 1.70 H Absolute Eosinophils 0.02 Absolute Basophils 0.02 RBC Morphology See below Poikilocytosis 2+ Anisocytosis 2+ Sodium 139 Potassium 1.8 L* Chloride 92 L Carbon Dioxide 26.1 Anion Gap 20.9 H BUN 22 H Creatinine 1.64 H Estimated GFR/1.73 m2 43.36 Glucose 99 Calcium 6.6 L Magnesium Total Bilirubin 4.4 H AST 83 H ALT 23 Alkaline Phosphatase 54 Total Protein 6.1 L Albumin 2.2 L Lipase 38 Ethyl Alcohol < 3.0 SARS-CoV-2 (PCR) Nasopharyn COVID-19 PCR Ref Test Perform Site Patient ABO/Rh Antibody Screen 11/11/20 11/11/20 11/11/20 12:40 14:22 14:30 WBC RBC Hgb Hct MCV MCH MCHC RDW Plt Count MPV Immature Gran % Neutrophils % Lymphocytes % Monocytes % Eosinophils % Basophils % Nucleated RBC % Absolute Neutrophils Absolute Lymphocytes Absolute Monocytes Absolute Eosinophils Absolute Basophils RBC Morphology Poikilocytosis Anisocytosis Sodium Potassium Chloride Carbon Dioxide Anion Gap BUN Creatinine Estimated GFR/1.73 m2 Glucose Calcium Magnesium 1.1 L Total Bilirubin AST ALT Alkaline Phosphatase Total Protein Albumin Lipase Ethyl Alcohol SARS-CoV-2 (PCR) Cancelled Nasopharyn COVID-19 PCR Cancelled Ref Test Perform Site Cancelled Patient ABO/Rh A Negative Antibody Screen Negative Last Vital Signs Temp 36.7 C 11/11/20 13:46 Pulse 82 11/11/20 14:49 Resp 17 11/11/20 14:46 BP 94/61 L 11/11/20 14:49 Pulse Ox 98 11/11/20 14:46 COVID-19 Screening Have you, or household traveled for leisure in last 14 days?: No Had IN PERSON contact w/suspected or confirmed C-19 person: No
--- NOTE | 2020-11-11 16:42 | SCONE_ITS ---
Date of service: 11/11/20 Time of Service: 16:42 Assessment and Plan Assessment and plan (1) Upper GI bleeding: Status: Acute Assessment and plan: Mr. Otoole is a 60 year old male with a history of alcoholism and known erosive gastritis as well as Hopson's esophagitis. He was scoped in February of 2020 for GI bleed and there was generalized oozing from the stomach but no pumper. He had no varices at that time. His Hgb is down to 7 which is down from 12 a few months ago. On exam his abdomen is soft and non-distended. He is jaundiced. P: Recommend resucitation with Iv fluids and some blood. US or CT scan of liver EGD only if he cannot be stabilized. I suspect we would find the same thing which is erosive gastritis as he continues to drink and has not taken his PPI as Rx. Will follow along with you History of Present Illness History of Present Illness Chief Complaint: melena and anemia Narrative: Mr. otoole is a 60 year old male known to our service who was brought to the ER today by ambulance for confusion. He was also weak and unable to ambulate. Patient is a known alcoholic. He is not a good historian. he gives me 2 different answers to the same question. He first complained of pain and then said he didn't have pain. He was noted to have melanotic stool in his underwear. He underwent an EGD by Dr. Strickland in February of 2020. He was noted at that time to have erosive gastritis. No varices were noted at that time. He is still drinking although he is not being truthful about how much he is drinking. He told Dr. Ontiveros a few glasses of liquor. He told me 3 Beers. I suspect its both and maybe more. He also has not taken his medications in the last 2 weeks. Consults Consult date: 11/11/20 Requesting physician: Laila Ontiveros Review of Systems Unobtainable due to mental status [facility] Medical History (Updated 11/11/20 @ 16:48 by Laila Ontiveros MD) Abnormal abdominal CT scan Alcohol induced fatty liver Alcohol use disorder Alcohol use disorder Anemia, iron deficiency Arthritis Atherosclerosis of abdominal aorta Hopson's esophagus determined by endoscopy Barretts esophagus Bone spur of foot Chronic iron deficiency anemia COPD (chronic obstructive pulmonary disease) DDD (degenerative disc disease) Dehydration Dehydration, mild Depression Depression with anxiety Diverticulosis Erosive gastritis Erosive gastritis Esophageal reflux Essential tremor Fatty liver Gastroenteritis Hematemesis Hepatitis A Hyperlipemia Hypokalemia due to excessive gastrointestinal loss of potassium Hypomagnesemia Insomnia Left knee pain LLQ abdominal pain Low back pain Lower extremity edema Nonspecific ST-T wave electrocardiographic changes Osteoarthritis (arthritis due to wear and tear of joints) Rectal polyp Smoker unmotivated to quit Suspected COVID-19 virus infection Tetrahydrocannabinol (THC) use disorder, moderate, dependence Thrombocytopenia Tobacco use disorder Transaminitis Urinary incontinence Urinary urgency (08/14/17) Surgical History History of foot surgery Hx of colonoscopy Hx of esophagogastroduodenoscopy Family History Sister Anxiety Depression Father Cancer Social History Smoking/Tobacco Use Status: Current every day Tobacco Type: cigarettes Smoking packs per day: 1.5 Smoking cigarettes per day: 30.0 Smoking risk assessment performed?: Yes Alcohol Intake: current Alcohol Intake frequency: 3 or more drinks per day Alcohol type: beer Drug use: Daily Substance use type: marijuana Details: No IV Drug Use Adopted: No Caregiver/Support person: No Foster care: No Household members: none Housing: house Do you need help understanding health information?: Often current occupation: Unemployed Sexually active: No Do you think of yourself as: straight/heterosexual Current gender identity: male Do you feel safe at home: Yes Do you feel safe in your relationship?: Yes Exam Const General: comfortable, no acute distress and frail appearing Nutritional Appearance: cachectic Orientation: alert and awake [facility] Head: normocephalic Eyes Pupils: PERRL Resp Effort & Inspection: normal respiratory effort Auscultation: clear to auscultation bilaterally Cardio Rate: regular rate Rhythm: regular rhythm GI Inspection: normal to inspection Palpation: soft, hepatomegaly, no hernias and nontender Auscultation: normal bowel sounds Rectal Exam: deferred Skin General skin exam: jaundice Results Last Vital Signs Temp 98.1 F 11/11/20 13:46 Pulse 82 11/11/20 14:49 Resp 17 11/11/20 14:46 BP 94/61 L 11/11/20 14:49 Pulse Ox 98 11/11/20 14:46 Labs Result diagrams: 11/11/20 16:25 11/11/20 12:02 Labs: Laboratory Results - last 24 hr 11/11/20 11/11/20 11/11/20 12:02 12:02 12:02 WBC 16.70 H RBC 2.52 L Hgb 7.6 L Hct 23.6 L MCV 93.7 MCH 30.2 MCHC 32.2 RDW 22.6 H Plt Count 211 MPV 10.8 Immature Gran % 0.7 Neutrophils % 82.0 Lymphocytes % 6.9 Monocytes % 10.2 Eosinophils % 0.1 Basophils % 0.1 Nucleated RBC % 0 Absolute Neutrophils 13.69 H Absolute Lymphocytes 1.15 L Absolute Monocytes 1.70 H Absolute Eosinophils 0.02 Absolute Basophils 0.02 RBC Morphology See below Poikilocytosis 2+ Anisocytosis 2+ Sodium 139 Potassium 1.8 L* Chloride 92 L Carbon Dioxide 26.1 Anion Gap 20.9 H BUN 22 H Creatinine 1.64 H Estimated GFR/1.73 m2 43.36 Glucose 99 Calcium 6.6 L Magnesium Total Bilirubin 4.4 H AST 83 H ALT 23 Alkaline Phosphatase 54 Total Protein 6.1 L Albumin 2.2 L Lipase 38 Ethyl Alcohol < 3.0 SARS-CoV-2 (PCR) Nasopharyn COVID-19 PCR Ref Test Perform Site Patient ABO/Rh Antibody Screen 11/11/20 11/11/20 11/11/20 12:40 14:22 14:30 WBC RBC Hgb Hct MCV MCH MCHC RDW Plt Count MPV Immature Gran % Neutrophils % Lymphocytes % Monocytes % Eosinophils % Basophils % Nucleated RBC % Absolute Neutrophils Absolute Lymphocytes Absolute Monocytes Absolute Eosinophils Absolute Basophils RBC Morphology Poikilocytosis Anisocytosis Sodium Potassium Chloride Carbon Dioxide Anion Gap BUN Creatinine Estimated GFR/1.73 m2 Glucose Calcium Magnesium 1.1 L Total Bilirubin AST ALT Alkaline Phosphatase Total Protein Albumin Lipase Ethyl Alcohol SARS-CoV-2 (PCR) Cancelled Nasopharyn COVID-19 PCR Cancelled Ref Test Perform Site Cancelled Patient ABO/Rh A Negative Antibody Screen Negative
[2020-11-11 16:45] LABS: HCT 21.7 % (40.0-50.0)
[2020-11-11] MEDS: Normal Saline 1,000 ML 75 ML IV (16:45)
[2020-11-11 16:49] LABS: Lactate 1.8 mmol/L (0.6-1.4)
[2020-11-11 16:52] LABS: Ammonia 68 umol/L (11-32)
[2020-11-11 17:00] LABS: Anion Gap 17.5 mmol/L (3-11); BUN 22 mg/dL (7-18); CO2 26.5 mmol/L (21.0-32.0); CREATININE 1.36 mg/dL (0.70-1.30); Calcium 6.6 mg/dL (8.5-10.1); Chloride 94 mmol/L (98-107); Estimated GFR 53.82 (mL/min/1.73m2); Glucose 83 mg/dL (74-106); Sodium 138 mmol/L (136-145)
[2020-11-11 17:01] LABS: INR 1.7 (0.9-1.1); Prothrombin Time 16.7 sec (9.3-11.0)
[2020-11-11] MEDS: cefTRIAXone 1 GM/50 ML BAG IVPB (17:05)
[2020-11-11 17:08] LABS: Creatine Kinase 698 U/L (39-308); Troponin I < 0.05 ng/mL (<0.06)
[2020-11-11 17:10] LABS: Potassium 1.6 mmol/L (3.5-5.1)
[2020-11-11] MEDS: Sucralfate 1 GM TAB PO (19:11)
[2020-11-11] MEDS: MAGNESIUM SULFATE 4 GM/100 ML BAG IVPB (19:27)
[2020-11-11] MEDS: diphenhydrAMINE 25 MG CAP PO (20:00)
[2020-11-11] MEDS: Acetaminophen 325 MG TAB 650 MG PO (20:01)
[2020-11-11 22:28] LABS: HCT 25.5 % (40.0-50.0); HGB 8.4 g/dL (13.5-17.5)
[2020-11-11 22:42] LABS: Anion Gap 15.6 mmol/L (3-11); BUN 18 mg/dL (7-18); CO2 25.4 mmol/L (21.0-32.0); CREATININE 1.01 mg/dL (0.70-1.30); Calcium 6.5 mg/dL (8.5-10.1); Chloride 99 mmol/L (98-107); Glucose 88 mg/dL (74-106); Magnesium 1.5 mg/dL (1.8-2.4); Sodium 140 mmol/L (136-145)
[2020-11-11 22:43] LABS: *AMPHETAMINES SCREEN URINE Negative (Negative); *BARBITURATES SCREEN URINE Negative (Negative); *BENZODIAZEPINES SCREEN URINE Negative (Negative); Cannabinoids THC POSITIVE (Negative); Cocaine Screen,Urine Negative (Negative); METHADONE URINE SCREEN Negative (Negative); OPIATES URINE SCREEN Negative (Negative)
[2020-11-11 22:51] LABS: Tricyclic Antidepressants Negative (Negative)
[2020-11-11 23:46] LABS: Bilirubin Large (Negative); Blood Moderate (Negative); Clarity Clear (Clear); Glucose Negative (Negative); Ketones 15 mg/dL (Negative); Leukocyte Esterase Negative (Negative); Nitrite Negative (Negative); pH 6.5 (5-8)
[2020-11-11 23:47] LABS: Epithelial Cells Rare HPF (Negative)
[2020-11-11 23:48] LABS: Bacteria Negative HPF (Negative); C & S Indicated? Yes; Casts 0-2 Hyaline LPF (Negative); Crystals Negative HPF (Negative); Mucus Negative (Negative); Other Cells Few Yeast (Negative)
[2020-11-12] VITALS (117 sets, daily range): BP systolic 73–120; BP diastolic 35–83; PULSE 70–110; RESP 13–32; TEMP 36.4–36.7; O2SAT 94–100
--- NOTE | 2020-11-12 | DI.US_ITS ---
EXAM: US ABDOMEN CLINICAL HISTORY: transaminitis/jaundice TECHNIQUE: Ultrasound of complete upper abdomen performed using standard protocol. COMPARISON: US US EXTREMITY VENOUS BI from 11/11/2020 CT scan 05/15/2020 FINDINGS: There is ascites in all 4 quadrants. LIVER: Liver is diffusely hyperechoic indicating steatosis, seen on prior CT scan May 2020. Liver i s also prominent in size. There are no obvious discrete focal hepatic lesions evident on these ultra sound images. GALLBLADDER/BILIARY: There is some sludge noted in the gallbladder. No calcified gallstones evident. The common hepatic duct isnot able to be identified due to overlying gas. PANCREAS: Poorly visualized due to overlying bowel gas. SPLEEN: The spleen is not enlarged and there are no intrasplenic lesions evident. KIDNEYS:Kidneys exhibit normal size with no evidence of solid mass, calculus, nor hydronephrosis. No cortical cysts evident. ABDOMINAL AORTA: Poorly visualized due to bowel gas IVC: Poorly visualized due to bowel gas IMPRESSION: 1. Hepatomegaly and hepatic steatosis. Ascites also evident in all quadrants.. Portal vein there i s not exhibit reversal of flow. Portal vein diameter is 13 millimeters, minimally prominent. There are no discrete focal hepatic lesions evident on these images. 2. There is some sludge in the gallbladder without evidence of shadowing calculi. Patient was appar ently not tender over this area. CBD was not able to be located due to overlying bowel gas. Pancrea s is also not well seen. 3. Kidneys unremarkable. DATA REPOSITORY:
[2020-11-12] MEDS: POTASSIUM CHLORIDE 20 MEQ/100 ML BAG 50 MEQ IVPB ×8 (00:19→20:41)
[2020-11-12] MEDS: Sucralfate 1 GM TAB PO ×3 (00:19→18:49)
[2020-11-12 00:22] LABS: COVID-19 RT-PCR UVMMC Result Negative (Negative)
[2020-11-12] MEDS: POTASSIUM CHLORIDE/0.9% NACL 1,000 ML 125 MEQ IV (00:29)
[2020-11-12] MEDS: MAGNESIUM SULFATE 2 GM/50 ML BAG IVPB (01:55)
[2020-11-12] MEDS: Normal Saline 250 ML 500 ML IV (06:07)
--- NOTE | 2020-11-12 06:31 | NUR.NOTE ---
Pt lost IV access in the RAC around 0500. I tried to establish access elsewhere but was unable after 3 attempts. Nursing Note:
[2020-11-12] MEDS: Pantoprazole 40 MG VIAL IVP ×2 (06:40→09:10)
[2020-11-12 07:01] LABS: Absolute Basophil Count 0.02 10^3/uL (0.0-0.2); Absolute Eosinophil Count 0.06 10^3/uL (0.0-0.7); Absolute Lymphocyte Count 0.95 10^3/uL (1.2-3.4); Absolute Monocyte Count 1.32 10^3/uL (0.1-0.8); Absolute Neutrophil Count 9.76 10^3/uL (1.2-6.7); Basophils % 0.2; Eosinophils % 0.5; HCT 27.8 % (40.0-50.0); HGB 9.3 g/dL (13.5-17.5); Immature Grans % 0.8; Lymphocytes % 7.8; MCHC 33.5 % (32.0-36.0); MCV 89.7 fL (80-95); MPV 10.7 fL (8.0-11.0); Monocytes % 10.8; Neutrophils % 79.9; Nucleated RBC 0 %; Platelet Count 151 10^3/uL (130-400); RDW 19.7 % (11.8-14.1); RDW-SD 50.6 fL; WBC 12.21 10^3/uL (4.4-10.8)
[2020-11-12 07:23] LABS: ALT 20 U/L (16-63); AST 99 U/L (15-37); Albumin 1.8 g/dL (3.4-5.0); Alkaline Phosphatase 48 U/L (46-116); Anion Gap 16.7 mmol/L (3-11); BUN 13 mg/dL (7-18); Bilirubin, Direct 3.65 mg/dL (0.00-0.20); Bilirubin, Total 5.3 mg/dL (0.2-1.0); CO2 23.3 mmol/L (21.0-32.0); CREATININE 0.83 mg/dL (0.70-1.30); Chloride 103 mmol/L (98-107); Glucose 76 mg/dL (74-106); Magnesium 2.4 mg/dL (1.8-2.4); Sodium 143 mmol/L (136-145); TSH (W/Ref FT4) 2.52 uIU/mL (0.36-3.74); Total Protein 5.1 g/dL (6.4-8.2)
[2020-11-12 07:27] LABS: Calcium 6.4 mg/dL (8.5-10.1)
[2020-11-12 07:28] LABS: Potassium 2.3 mmol/L (3.5-5.1)
[2020-11-12 07:41] LABS: Iron 149 ug/dL (65-175); Total Iron Binding Capacity 142 ug/dL (250-450); Transferrin Sat 105 % (20-55)
--- NOTE | 2020-11-12 07:51 | INITIAL_ITS ---
- If Service Date Differs Date of service: 11/12/20 Time of Service: 07:51 Care Management Initial Assess REASON FOR HOSPITALIZATION:: Anemia due to blood loss PAST MEDICAL HISTORY/PAST SURGICAL HISTORY:: Medical History (Updated 11/11/20 @ 16:48 by Laila Ontiveros MD). Abnormal abdominal CT scan. Alcohol induced fatty liver. Alcohol use disorder. Alcohol use disorder. Anemia, iron deficiency. Arthritis. Atherosclerosis of abdominal aorta. Hopson's esophagus determined by endoscopy. Barretts esophagus. Bone spur of foot. Chronic iron deficiency anemia. COPD (chronic obstructive pulmonary disease). DDD (degenerative disc disease). Dehydration. Dehydration, mild. Depression. Depression with anxiety. Diverticulosis. Erosive gastritis. Erosive gastritis. Esophageal reflux. Essential tremor. Fatty liver. Gastroenteritis. Hematemesis. Hepatitis A. Hyperlipemia. Hypokalemia due to excessive gastrointestinal loss of potassium. Hypomagnesemia. Insomnia. Left knee pain. LLQ abdominal pain. Low back pain. Lower extremity edema. Nonspecific ST-T wave electrocardiographic changes. Osteoarthritis (arthritis due to wear and tear of joints). Rectal polyp. Smoker unmotivated to quit. Suspected COVID-19 virus infection. Tetrahydrocannabinol (THC) use disorder, moderate, dependence. Thrombocytopenia. Tobacco use disorder. Transaminitis. Urinary incontinence. Urinary urgency (08/14/17). Surgical History . History of foot surgery. Hx of colonoscopy. Hx of esophagogastroduodenoscopy PREVIOUS FUNCTIONAL STATUS/SOCIAL/FAMILY SUPPORTS:: Alton lives alone in a single family home in [place]. His mother is a good support and spends a lot of time with him; Alton states that she visits almost every day. Alton is unemployed and has been for 3 years. He states that he manages his care independently. CURRENT FUNCTIONAL STATUS:: Alton was sitting up in bed in the ICU when CM met with him. He was awake and pleasant and engaged readily with CM. Alton shared stories about his days fishing and also talked about cooking and recipes. He maintains that he is doing OK at home. When asked who he lives with he stated that he lives alone but that his mother checks on him frequently. They have a system for making sure that he is OK. They have set the worry time at 10 am. If his mother does not hear from Alton by 10 am, she calls him. If she is unable to reach him by phone, she comes in person to verify that he is alright. ADVANCE DIRECTIVES:: none on file Has patient been provided with info about the portal/API?: Yes Did the patient sign up for the portal?: No CODE STATUS:: Full Code INSURANCE COVERAGE / FINANCIAL ISSUES:: Medicaid CURRENT HOME/COMMUNITY SERVICES/EQUIPMENT:: none currently PRIMARY CARE PHYSICIAN:: Jonathan Black POTENTIAL DISCHARGE NEEDS:: substance abuse treatment, home health services, possible rehab PATIENT/FAMILY EDUCATION NEEDS:: Discharge plan, limitations, medication management, follow up plan, Ask Me Three TRANSPORTATION:: via private vehicle with friend/family PLAN:: Alton will likely be discharged home. He may need new home health services, depending on the course of his illness. He will follow up with his community providers and plan of care. CM will continue to support patient, family and discharge planning concerns.
--- NOTE | 2020-11-12 07:55 | PGE_ITS ---
Date of Service Date of service: 11/12/20 Time of Service: 07:56 Assessment and Plan Assessment and plan (1) Upper GI bleeding: Status: Acute Assessment and plan: hct is stable, pt has significant liver dysfunction No intervention at this point. Ok from surg standpoint to start liquids po. continue ppi Subjective Subjective Interval history since last seen: co thirst. no abd pain. states no bms Exam Const General: cooperative and comfortable Nutritional Appearance: malnourished Orientation: alert GI Palpation: soft and ascites Objective Last Vital Signs Temp 97.5 F L 11/12/20 03:43 Pulse 80 11/12/20 03:43 Resp 18 11/12/20 03:43 BP 73/48 L 11/12/20 03:41 Pulse Ox 98 11/12/20 03:43 Laboratory Results - last 24 hr 11/11/20 11/11/20 11/11/20 12:02 12:02 12:02 WBC 16.70 H RBC 2.52 L Hgb 7.6 L Hct 23.6 L MCV 93.7 MCH 30.2 MCHC 32.2 RDW 22.6 H Plt Count 211 MPV 10.8 Immature Gran % 0.7 Neutrophils % 82.0 Lymphocytes % 6.9 Monocytes % 10.2 Eosinophils % 0.1 Basophils % 0.1 Nucleated RBC % 0 Absolute Neutrophils 13.69 H Absolute Lymphocytes 1.15 L Absolute Monocytes 1.70 H Absolute Eosinophils 0.02 Absolute Basophils 0.02 RBC Morphology See below Poikilocytosis 2+ Anisocytosis 2+ PT INR VBG Lactate Sodium 139 Potassium 1.8 L* Chloride 92 L Carbon Dioxide 26.1 Anion Gap 20.9 H BUN 22 H Creatinine 1.64 H Estimated GFR/1.73 m2 43.36 Glucose 99 Calcium 6.6 L Magnesium Iron TIBC Transferrin % Sat Total Bilirubin 4.4 H Conjugated Bilirubin AST 83 H ALT 23 Alkaline Phosphatase 54 Ammonia Creatine Kinase Troponin I Total Protein 6.1 L Albumin 2.2 L Lipase 38 TSH Urine Color Urine Clarity Urine pH Ur Specific Thayne Urine Protein Urine Ketones Urine Blood Urine Nitrite Urine Bilirubin Urine Urobilinogen Ur Leukocyte Esterase Urine RBC Urine WBC Ur Epithelial Cells Urine Crystals Urine Bacteria Urine Casts Urine Mucus Urine Other Ur Culture Indicated? Urine Glucose Urine Opiates Screen Urine Methadone Screen Ur Barbiturates Screen Ur Tricyclics Screen Ur Amphetamines Screen U Benzodiazepines Scrn Urine Cocaine Screen Ur THC Screen Ethyl Alcohol < 3.0 SARS-CoV-2 (PCR) Nasopharyn COVID-19 PCR Ref Test Perform Site Patient ABO/Rh Antibody Screen Crossmatch 11/11/20 11/11/20 11/11/20 12:40 14:22 14:30 WBC RBC Hgb Hct MCV MCH MCHC RDW Plt Count MPV Immature Gran % Neutrophils % Lymphocytes % Monocytes % Eosinophils % Basophils % Nucleated RBC % Absolute Neutrophils Absolute Lymphocytes Absolute Monocytes Absolute Eosinophils Absolute Basophils RBC Morphology Poikilocytosis Anisocytosis PT INR VBG Lactate Sodium Potassium Chloride Carbon Dioxide Anion Gap BUN Creatinine Estimated GFR/1.73 m2 Glucose Calcium Magnesium 1.1 L Iron TIBC Transferrin % Sat Total Bilirubin Conjugated Bilirubin AST ALT Alkaline Phosphatase Ammonia Creatine Kinase Troponin I Total Protein Albumin Lipase TSH Urine Color Urine Clarity Urine pH Ur Specific Thayne Urine Protein Urine Ketones Urine Blood Urine Nitrite Urine Bilirubin Urine Urobilinogen Ur Leukocyte Esterase Urine RBC Urine WBC Ur Epithelial Cells Urine Crystals Urine Bacteria Urine Casts Urine Mucus Urine Other Ur Culture Indicated? Urine Glucose Urine Opiates Screen Urine Methadone Screen Ur Barbiturates Screen Ur Tricyclics Screen Ur Amphetamines Screen U Benzodiazepines Scrn Urine Cocaine Screen Ur THC Screen Ethyl Alcohol SARS-CoV-2 (PCR) Cancelled Nasopharyn COVID-19 PCR Cancelled Ref Test Perform Site Cancelled Patient ABO/Rh A Negative Antibody Screen Negative Crossmatch See Detail 11/11/20 11/11/20 11/11/20 14:35 15:20 16:20 WBC RBC Hgb Hct MCV MCH MCHC RDW Plt Count MPV Immature Gran % Neutrophils % Lymphocytes % Monocytes % Eosinophils % Basophils % Nucleated RBC % Absolute Neutrophils Absolute Lymphocytes Absolute Monocytes Absolute Eosinophils Absolute Basophils RBC Morphology Poikilocytosis Anisocytosis PT INR VBG Lactate Sodium Potassium Chloride Carbon Dioxide Anion Gap BUN Creatinine Estimated GFR/1.73 m2 Glucose Calcium Magnesium Iron TIBC Transferrin % Sat Total Bilirubin Conjugated Bilirubin AST ALT Alkaline Phosphatase Ammonia 68 H Creatine Kinase Troponin I Total Protein Albumin Lipase TSH Urine Color Yellow Urine Clarity Clear Urine pH 6.5 Ur Specific Thayne 1.020 Urine Protein 30 H Urine Ketones 15 H Urine Blood Moderate H Urine Nitrite Negative Urine Bilirubin Large H Urine Urobilinogen 2.0 H Ur Leukocyte Esterase Negative Urine RBC 10-20 H Urine WBC 3-5 Ur Epithelial Cells Rare Urine Crystals Negative Urine Bacteria Negative Urine Casts 0-2 hyaline Urine Mucus Negative Urine Other Few yeast Ur Culture Indicated? Yes Urine Glucose Negative Urine Opiates Screen Urine Methadone Screen Ur Barbiturates Screen Ur Tricyclics Screen Ur Amphetamines Screen U Benzodiazepines Scrn Urine Cocaine Screen Ur THC Screen Ethyl Alcohol SARS-CoV-2 (PCR) Negative Nasopharyn COVID-19 PCR Not Applicable Ref Test Perform Site [facility] lab Patient ABO/Rh Antibody Screen Crossmatch 11/11/20 11/11/20 11/11/20 16:25 16:25 16:25 WBC RBC Hgb Hct MCV MCH MCHC RDW Plt Count MPV Immature Gran % Neutrophils % Lymphocytes % Monocytes % Eosinophils % Basophils % Nucleated RBC % Absolute Neutrophils Absolute Lymphocytes Absolute Monocytes Absolute Eosinophils Absolute Basophils RBC Morphology Poikilocytosis Anisocytosis PT 16.7 H INR 1.7 H VBG Lactate 1.8 H Sodium Potassium Chloride Carbon Dioxide Anion Gap BUN Creatinine Estimated GFR/1.73 m2 Glucose Calcium Magnesium Iron TIBC Transferrin % Sat Total Bilirubin Conjugated Bilirubin AST ALT Alkaline Phosphatase Ammonia Creatine Kinase 698 H Troponin I < 0.05 Total Protein Albumin Lipase TSH Urine Color Urine Clarity Urine pH Ur Specific Thayne Urine Protein Urine Ketones Urine Blood Urine Nitrite Urine Bilirubin Urine Urobilinogen Ur Leukocyte Esterase Urine RBC Urine WBC Ur Epithelial Cells Urine Crystals Urine Bacteria Urine Casts Urine Mucus Urine Other Ur Culture Indicated? Urine Glucose Urine Opiates Screen Urine Methadone Screen Ur Barbiturates Screen Ur Tricyclics Screen Ur Amphetamines Screen U Benzodiazepines Scrn Urine Cocaine Screen Ur THC Screen Ethyl Alcohol SARS-CoV-2 (PCR) Nasopharyn COVID-19 PCR Ref Test Perform Site Patient ABO/Rh Antibody Screen Crossmatch 11/11/20 11/11/20 11/11/20 16:25 16:25 16:44 WBC RBC Hgb 7.0 L Hct 21.7 L MCV MCH MCHC RDW Plt Count MPV Immature Gran % Neutrophils % Lymphocytes % Monocytes % Eosinophils % Basophils % Nucleated RBC % Absolute Neutrophils Absolute Lymphocytes Absolute Monocytes Absolute Eosinophils Absolute Basophils RBC Morphology Poikilocytosis Anisocytosis PT INR VBG Lactate Sodium 138 Potassium 1.6 L* Chloride 94 L Carbon Dioxide 26.5 Anion Gap 17.5 H BUN 22 H Creatinine 1.36 H Estimated GFR/1.73 m2 53.82 Glucose 83 Calcium 6.6 L Magnesium Iron TIBC Transferrin % Sat Total Bilirubin Conjugated Bilirubin AST ALT Alkaline Phosphatase Ammonia Creatine Kinase Troponin I Cancelled Total Protein Albumin Lipase TSH Urine Color Urine Clarity Urine pH Ur Specific Thayne Urine Protein Urine Ketones Urine Blood Urine Nitrite Urine Bilirubin Urine Urobilinogen Ur Leukocyte Esterase Urine RBC Urine WBC Ur Epithelial Cells Urine Crystals Urine Bacteria Urine Casts Urine Mucus Urine Other Ur Culture Indicated? Urine Glucose Urine Opiates Screen Urine Methadone Screen Ur Barbiturates Screen Ur Tricyclics Screen Ur Amphetamines Screen U Benzodiazepines Scrn Urine Cocaine Screen Ur THC Screen Ethyl Alcohol SARS-CoV-2 (PCR) Nasopharyn COVID-19 PCR Ref Test Perform Site Patient ABO/Rh Antibody Screen Crossmatch 11/11/20 11/11/20 11/11/20 22:10 22:10 22:10 WBC RBC Hgb 8.4 L Hct 25.5 L MCV MCH MCHC RDW Plt Count MPV Immature Gran % Neutrophils % Lymphocytes % Monocytes % Eosinophils % Basophils % Nucleated RBC % Absolute Neutrophils Absolute Lymphocytes Absolute Monocytes Absolute Eosinophils Absolute Basophils RBC Morphology Poikilocytosis Anisocytosis PT INR VBG Lactate Sodium 140 Potassium 2.0 L* Chloride 99 Carbon Dioxide 25.4 Anion Gap 15.6 H BUN 18 Creatinine 1.01 Estimated GFR/1.73 m2 >= 60.00 Glucose 88 Calcium 6.5 L Magnesium 1.5 L Iron TIBC Transferrin % Sat Total Bilirubin Conjugated Bilirubin AST ALT Alkaline Phosphatase Ammonia Creatine Kinase Troponin I Total Protein Albumin Lipase TSH Urine Color Urine Clarity Urine pH Ur Specific Thayne Urine Protein Urine Ketones Urine Blood Urine Nitrite Urine Bilirubin Urine Urobilinogen Ur Leukocyte Esterase Urine RBC Urine WBC Ur Epithelial Cells Urine Crystals Urine Bacteria Urine Casts Urine Mucus Urine Other Ur Culture Indicated? Urine Glucose Urine Opiates Screen Negative Urine Methadone Screen Negative Ur Barbiturates Screen Negative Ur Tricyclics Screen Negative Ur Amphetamines Screen Negative U Benzodiazepines Scrn Negative Urine Cocaine Screen Negative Ur THC Screen Positive A Ethyl Alcohol SARS-CoV-2 (PCR) Nasopharyn COVID-19 PCR Ref Test Perform Site Patient ABO/Rh Antibody Screen Crossmatch 11/11/20 11/12/20 11/12/20 22:36 06:30 06:30 WBC RBC Hgb Hct MCV MCH MCHC RDW Plt Count MPV Immature Gran % Neutrophils % Lymphocytes % Monocytes % Eosinophils % Basophils % Nucleated RBC % Absolute Neutrophils Absolute Lymphocytes Absolute Monocytes Absolute Eosinophils Absolute Basophils RBC Morphology Poikilocytosis Anisocytosis PT INR VBG Lactate Sodium 143 Potassium 2.3 L* Chloride 103 Carbon Dioxide 23.3 Anion Gap 16.7 H BUN 13 Creatinine 0.83 Estimated GFR/1.73 m2 >= 60.00 Glucose 76 Calcium 6.4 L* Magnesium 2.4 Iron 149 TIBC 142 L Transferrin % Sat 105 H Total Bilirubin 5.3 H Conjugated Bilirubin 3.65 H AST 99 H ALT 20 Alkaline Phosphatase 48 Ammonia Creatine Kinase Troponin I Total Protein 5.1 L Albumin 1.8 L Lipase TSH 2.52 Urine Color Urine Clarity Urine pH Ur Specific Thayne Urine Protein Urine Ketones Urine Blood Urine Nitrite Urine Bilirubin Urine Urobilinogen Ur Leukocyte Esterase Urine RBC Urine WBC Ur Epithelial Cells Urine Crystals Urine Bacteria Urine Casts Urine Mucus Urine Other Ur Culture Indicated? Urine Glucose Urine Opiates Screen Cancelled Urine Methadone Screen Cancelled Ur Barbiturates Screen Cancelled Ur Tricyclics Screen Cancelled Ur Amphetamines Screen Cancelled U Benzodiazepines Scrn Cancelled Urine Cocaine Screen Cancelled Ur THC Screen Cancelled Ethyl Alcohol SARS-CoV-2 (PCR) Nasopharyn COVID-19 PCR Ref Test Perform Site Patient ABO/Rh Antibody Screen Crossmatch 11/12/20 06:30 WBC 12.21 H RBC 3.10 L Hgb 9.3 L Hct 27.8 L MCV 89.7 D MCH 30.0 MCHC 33.5 RDW 19.7 H Plt Count 151 MPV 10.7 Immature Gran % 0.8 Neutrophils % 79.9 Lymphocytes % 7.8 Monocytes % 10.8 Eosinophils % 0.5 Basophils % 0.2 Nucleated RBC % 0 Absolute Neutrophils 9.76 H Absolute Lymphocytes 0.95 L Absolute Monocytes 1.32 H Absolute Eosinophils 0.06 Absolute Basophils 0.02 RBC Morphology Poikilocytosis Anisocytosis PT INR VBG Lactate Sodium Potassium Chloride Carbon Dioxide Anion Gap BUN Creatinine Estimated GFR/1.73 m2 Glucose Calcium Magnesium Iron TIBC Transferrin % Sat Total Bilirubin Conjugated Bilirubin AST ALT Alkaline Phosphatase Ammonia Creatine Kinase Troponin I Total Protein Albumin Lipase TSH Urine Color Urine Clarity Urine pH Ur Specific Thayne Urine Protein Urine Ketones Urine Blood Urine Nitrite Urine Bilirubin Urine Urobilinogen Ur Leukocyte Esterase Urine RBC Urine WBC Ur Epithelial Cells Urine Crystals Urine Bacteria Urine Casts Urine Mucus Urine Other Ur Culture Indicated? Urine Glucose Urine Opiates Screen Urine Methadone Screen Ur Barbiturates Screen Ur Tricyclics Screen Ur Amphetamines Screen U Benzodiazepines Scrn Urine Cocaine Screen Ur THC Screen Ethyl Alcohol SARS-CoV-2 (PCR) Nasopharyn COVID-19 PCR Ref Test Perform Site Patient ABO/Rh Antibody Screen Crossmatch
[2020-11-12 08:06] LABS: Ferritin 41 ng/mL (26-388); Folate 7.7 ng/mL (8.6-20.0); Vitamin B12 1867 pg/mL (193-986)
--- NOTE | 2020-11-12 08:13 | PGE_ITS ---
Date of Service Date of service: 11/12/20 Time of Service: 10:35 Assessment and Plan Assessment and plan (1) Hypotension: Status: Acute Assessment and plan: In setting of GI bleeding/anemia/dehydration. Continue aggressive IVF, trend H/H. (2) Anemia due to acute blood loss: Status: Acute Assessment and plan: Likely due to recurrent upper GI bleeding in setting of h/o erosive esophagitis, ongoing alcohol abuse, and medication noncompliance. S/p 2 units pRBCs overnight. Repeating H/H at noon. Written for PPI Q12hrs (increase to 80 mg IV BID of protonix), continue carafate. NPO. General surgery consulted. May require a repeat EGD on this admission. (3) Upper GI bleeding: Status: Acute Assessment and plan: As above Received Vitamin K. If becomes massive bleeding, would benefit from FFP. (4) Acute hypokalemia: Status: Acute Assessment and plan: Replete; Recheck level at noon. Monitor in the ICU with school bus monitor. (5) Hypomagnesemia: Status: Acute Assessment and plan: Repleted. Recheck in am. Also replete calcium. (6) Leucocytosis: Status: Acute Assessment and plan: UA negative. CXR negative. Afebrile. Leucocytosis is likely due to GI bleeding. Blood cultures pending - d/c empiric ceftriaxone if negative. (7) Urinary tract infection symptoms: Status: Acute Assessment and plan: S/p walters. No evidence of a UTI. ?urinary retention. Will need a voiding trial on discontinuation of walters catheter. (8) Painless jaundice: Status: Acute Assessment and plan: Await US abdomen. I suspect alcoholic hepatitis. Maddrey score 31.5 - borderline for requiring prednisolone. Steroids are relatively contraindicated due to acute GI bleeding, so will hold off for now I will continue to trend LFTs, PT/INR - if Maddrey score worsens, would initiate steroids. (9) ANNALISA (acute kidney injury): Status: Acute Assessment and plan: Does appear clinically dry. Continue IVF. Improving. (10) Hepatic encephalopathy: Status: Acute Assessment and plan: clinically not having asterexis. Not starting lactulose yet (11) Coagulopathy: Status: Acute Assessment and plan: In setting of alcoholic hepatitis. Written for Vitamin K today. Monitor Maddrey scores. (12) Alcohol abuse: Status: Chronic Assessment and plan: Monitor on CIWA. Provide vitamins/thiamine. (13) COPD (chronic obstructive pulmonary disease): Status: Chronic Assessment and plan: not in acute exacerbation. Continue home therapy (14) DVT prophylaxis: Status: Acute Assessment and plan: TEDs/SCDs. Chemical DVT ppx is contraindicated in setting of active GI bleeding (15) Discharge planning issues: Status: Acute Assessment and plan: Full code. Continues to require ICU. Palliative care consulted. Total Critical Care Time 1 hr. Subjective Subjective Interval history since last seen: Mr Awad states that he is feeling well and that we are making progress quickly. He denies dizziness, chest pain, nausea, abdominal pain. He states he is a little short of breath. He has not gotten his inhaler this morning yet. On the monitor: PVCs, HR 80s. Overnight, BP 75-80/40. MAP 64. BP 85/57 this am, received a bolus of 250 cc NS, followed by 1L of NS. Oozing heme positive stools, but none so far this morning. Got a total of 2 units of blood overnight. Hallucinating overnight, CIWA 2-3. Not hallucinating now. Rhonchi. No SOB. Not requiring oxygen. No ativan given overnight. Exam Narrative Exam Narrative: General: Pleasant cooperative middle-aged cachectic male, A&Ox2, getting his abdominal ultrasound when I came in HEENT: EOMI, MMM Heart: RRR, no m/r/g Lungs: rhonchi which are cleared with deep breathing Abdomen: soft, nondistended Extremities: no edema BLE's in TEDs Objective Last Vital Signs Temp 36.4 C L 11/12/20 03:43 Pulse 80 11/12/20 03:43 Resp 18 11/12/20 03:43 BP 73/48 L 11/12/20 03:41 Pulse Ox 98 11/12/20 03:43 Laboratory Results - last 24 hr 11/11/20 11/11/20 11/11/20 12:02 12:02 12:02 WBC 16.70 H RBC 2.52 L Hgb 7.6 L Hct 23.6 L MCV 93.7 MCH 30.2 MCHC 32.2 RDW 22.6 H Plt Count 211 MPV 10.8 Immature Gran % 0.7 Neutrophils % 82.0 Lymphocytes % 6.9 Monocytes % 10.2 Eosinophils % 0.1 Basophils % 0.1 Nucleated RBC % 0 Absolute Neutrophils 13.69 H Absolute Lymphocytes 1.15 L Absolute Monocytes 1.70 H Absolute Eosinophils 0.02 Absolute Basophils 0.02 RBC Morphology See below Poikilocytosis 2+ Anisocytosis 2+ PT INR VBG Lactate Sodium 139 Potassium 1.8 L* Chloride 92 L Carbon Dioxide 26.1 Anion Gap 20.9 H BUN 22 H Creatinine 1.64 H Estimated GFR/1.73 m2 43.36 Glucose 99 Calcium 6.6 L Magnesium Iron TIBC Transferrin % Sat Ferritin Total Bilirubin 4.4 H Conjugated Bilirubin AST 83 H ALT 23 Alkaline Phosphatase 54 Ammonia Creatine Kinase Troponin I Total Protein 6.1 L Albumin 2.2 L Lipase 38 Vitamin B12 Folate TSH Urine Color Urine Clarity Urine pH Ur Specific Greer Urine Protein Urine Ketones Urine Blood Urine Nitrite Urine Bilirubin Urine Urobilinogen Ur Leukocyte Esterase Urine RBC Urine WBC Ur Epithelial Cells Urine Crystals Urine Bacteria Urine Casts Urine Mucus Urine Other Ur Culture Indicated? Urine Glucose Urine Opiates Screen Urine Methadone Screen Ur Barbiturates Screen Ur Tricyclics Screen Ur Amphetamines Screen U Benzodiazepines Scrn Urine Cocaine Screen Ur THC Screen Ethyl Alcohol < 3.0 SARS-CoV-2 (PCR) Nasopharyn COVID-19 PCR Ref Test Perform Site Patient ABO/Rh Antibody Screen Crossmatch 11/11/20 11/11/20 11/11/20 12:40 14:22 14:30 WBC RBC Hgb Hct MCV MCH MCHC RDW Plt Count MPV Immature Gran % Neutrophils % Lymphocytes % Monocytes % Eosinophils % Basophils % Nucleated RBC % Absolute Neutrophils Absolute Lymphocytes Absolute Monocytes Absolute Eosinophils Absolute Basophils RBC Morphology Poikilocytosis Anisocytosis PT INR VBG Lactate Sodium Potassium Chloride Carbon Dioxide Anion Gap BUN Creatinine Estimated GFR/1.73 m2 Glucose Calcium Magnesium 1.1 L Iron TIBC Transferrin % Sat Ferritin Total Bilirubin Conjugated Bilirubin AST ALT Alkaline Phosphatase Ammonia Creatine Kinase Troponin I Total Protein Albumin Lipase Vitamin B12 Folate TSH Urine Color Urine Clarity Urine pH Ur Specific Greer Urine Protein Urine Ketones Urine Blood Urine Nitrite Urine Bilirubin Urine Urobilinogen Ur Leukocyte Esterase Urine RBC Urine WBC Ur Epithelial Cells Urine Crystals Urine Bacteria Urine Casts Urine Mucus Urine Other Ur Culture Indicated? Urine Glucose Urine Opiates Screen Urine Methadone Screen Ur Barbiturates Screen Ur Tricyclics Screen Ur Amphetamines Screen U Benzodiazepines Scrn Urine Cocaine Screen Ur THC Screen Ethyl Alcohol SARS-CoV-2 (PCR) Cancelled Nasopharyn COVID-19 PCR Cancelled Ref Test Perform Site Cancelled Patient ABO/Rh A Negative Antibody Screen Negative Crossmatch See Detail 11/11/20 11/11/20 11/11/20 14:35 15:20 16:20 WBC RBC Hgb Hct MCV MCH MCHC RDW Plt Count MPV Immature Gran % Neutrophils % Lymphocytes % Monocytes % Eosinophils % Basophils % Nucleated RBC % Absolute Neutrophils Absolute Lymphocytes Absolute Monocytes Absolute Eosinophils Absolute Basophils RBC Morphology Poikilocytosis Anisocytosis PT INR VBG Lactate Sodium Potassium Chloride Carbon Dioxide Anion Gap BUN Creatinine Estimated GFR/1.73 m2 Glucose Calcium Magnesium Iron TIBC Transferrin % Sat Ferritin Total Bilirubin Conjugated Bilirubin AST ALT Alkaline Phosphatase Ammonia 68 H Creatine Kinase Troponin I Total Protein Albumin Lipase Vitamin B12 Folate TSH Urine Color Yellow Urine Clarity Clear Urine pH 6.5 Ur Specific Greer 1.020 Urine Protein 30 H Urine Ketones 15 H Urine Blood Moderate H Urine Nitrite Negative Urine Bilirubin Large H Urine Urobilinogen 2.0 H Ur Leukocyte Esterase Negative Urine RBC 10-20 H Urine WBC 3-5 Ur Epithelial Cells Rare Urine Crystals Negative Urine Bacteria Negative Urine Casts 0-2 hyaline Urine Mucus Negative Urine Other Few yeast Ur Culture Indicated? Yes Urine Glucose Negative Urine Opiates Screen Urine Methadone Screen Ur Barbiturates Screen Ur Tricyclics Screen Ur Amphetamines Screen U Benzodiazepines Scrn Urine Cocaine Screen Ur THC Screen Ethyl Alcohol SARS-CoV-2 (PCR) Negative Nasopharyn COVID-19 PCR Not Applicable Ref Test Perform Site [facility] lab Patient ABO/Rh Antibody Screen Crossmatch 11/11/20 11/11/20 11/11/20 16:25 16:25 16:25 WBC RBC Hgb Hct MCV MCH MCHC RDW Plt Count MPV Immature Gran % Neutrophils % Lymphocytes % Monocytes % Eosinophils % Basophils % Nucleated RBC % Absolute Neutrophils Absolute Lymphocytes Absolute Monocytes Absolute Eosinophils Absolute Basophils RBC Morphology Poikilocytosis Anisocytosis PT 16.7 H INR 1.7 H VBG Lactate 1.8 H Sodium Potassium Chloride Carbon Dioxide Anion Gap BUN Creatinine Estimated GFR/1.73 m2 Glucose Calcium Magnesium Iron TIBC Transferrin % Sat Ferritin Total Bilirubin Conjugated Bilirubin AST ALT Alkaline Phosphatase Ammonia Creatine Kinase 698 H Troponin I < 0.05 Total Protein Albumin Lipase Vitamin B12 Folate TSH Urine Color Urine Clarity Urine pH Ur Specific Greer Urine Protein Urine Ketones Urine Blood Urine Nitrite Urine Bilirubin Urine Urobilinogen Ur Leukocyte Esterase Urine RBC Urine WBC Ur Epithelial Cells Urine Crystals Urine Bacteria Urine Casts Urine Mucus Urine Other Ur Culture Indicated? Urine Glucose Urine Opiates Screen Urine Methadone Screen Ur Barbiturates Screen Ur Tricyclics Screen Ur Amphetamines Screen U Benzodiazepines Scrn Urine Cocaine Screen Ur THC Screen Ethyl Alcohol SARS-CoV-2 (PCR) [facility] COVID-19 PCR Ref Test Perform Site Patient ABO/Rh Antibody Screen Crossmatch 11/11/20 11/11/20 11/11/20 16:25 16:25 16:44 WBC RBC Hgb 7.0 L Hct 21.7 L MCV MCH MCHC RDW Plt Count MPV Immature Gran % Neutrophils % Lymphocytes % Monocytes % Eosinophils % Basophils % Nucleated RBC % Absolute Neutrophils Absolute Lymphocytes Absolute Monocytes Absolute Eosinophils Absolute Basophils RBC Morphology Poikilocytosis Anisocytosis PT INR VBG Lactate Sodium 138 Potassium 1.6 L* Chloride 94 L Carbon Dioxide 26.5 Anion Gap 17.5 H BUN 22 H Creatinine 1.36 H Estimated GFR/1.73 m2 53.82 Glucose 83 Calcium 6.6 L Magnesium Iron TIBC Transferrin % Sat Ferritin Total Bilirubin Conjugated Bilirubin AST ALT Alkaline Phosphatase Ammonia Creatine Kinase Troponin I Cancelled Total Protein Albumin Lipase Vitamin B12 Folate TSH Urine Color Urine Clarity Urine pH Ur Specific Greer Urine Protein Urine Ketones Urine Blood Urine Nitrite Urine Bilirubin Urine Urobilinogen Ur Leukocyte Esterase Urine RBC Urine WBC Ur Epithelial Cells Urine Crystals Urine Bacteria Urine Casts Urine Mucus Urine Other Ur Culture Indicated? Urine Glucose Urine Opiates Screen Urine Methadone Screen Ur Barbiturates Screen Ur Tricyclics Screen Ur Amphetamines Screen U Benzodiazepines Scrn Urine Cocaine Screen Ur THC Screen Ethyl Alcohol SARS-CoV-2 (PCR) [facility] COVID-19 PCR Ref Test Perform Site Patient ABO/Rh Antibody Screen Crossmatch 11/11/20 11/11/20 11/11/20 22:10 22:10 22:10 WBC RBC Hgb 8.4 L Hct 25.5 L MCV MCH MCHC RDW Plt Count MPV Immature Gran % Neutrophils % Lymphocytes % Monocytes % Eosinophils % Basophils % Nucleated RBC % Absolute Neutrophils Absolute Lymphocytes Absolute Monocytes Absolute Eosinophils Absolute Basophils RBC Morphology Poikilocytosis Anisocytosis PT INR VBG Lactate Sodium 140 Potassium 2.0 L* Chloride 99 Carbon Dioxide 25.4 Anion Gap 15.6 H BUN 18 Creatinine 1.01 Estimated GFR/1.73 m2 >= 60.00 Glucose 88 Calcium 6.5 L Magnesium 1.5 L Iron TIBC Transferrin % Sat Ferritin Total Bilirubin Conjugated Bilirubin AST ALT Alkaline Phosphatase Ammonia Creatine Kinase Troponin I Total Protein Albumin Lipase Vitamin B12 Folate TSH Urine Color Urine Clarity Urine pH Ur Specific Greer Urine Protein Urine Ketones Urine Blood Urine Nitrite Urine Bilirubin Urine Urobilinogen Ur Leukocyte Esterase Urine RBC Urine WBC Ur Epithelial Cells Urine Crystals Urine Bacteria Urine Casts Urine Mucus Urine Other Ur Culture Indicated? Urine Glucose Urine Opiates Screen Negative Urine Methadone Screen Negative Ur Barbiturates Screen Negative Ur Tricyclics Screen Negative Ur Amphetamines Screen Negative U Benzodiazepines Scrn Negative Urine Cocaine Screen Negative Ur THC Screen Positive A Ethyl Alcohol SARS-CoV-2 (PCR) Nasopharyn COVID-19 PCR Ref Test Perform Site Patient ABO/Rh Antibody Screen Crossmatch 11/11/20 11/12/20 11/12/20 22:36 06:30 06:30 WBC RBC Hgb Hct MCV MCH MCHC RDW Plt Count MPV Immature Gran % Neutrophils % Lymphocytes % Monocytes % Eosinophils % Basophils % Nucleated RBC % Absolute Neutrophils Absolute Lymphocytes Absolute Monocytes Absolute Eosinophils Absolute Basophils RBC Morphology Poikilocytosis Anisocytosis PT INR VBG Lactate Sodium 143 Potassium 2.3 L* Chloride 103 Carbon Dioxide 23.3 Anion Gap 16.7 H BUN 13 Creatinine 0.83 Estimated GFR/1.73 m2 >= 60.00 Glucose 76 Calcium 6.4 L* Magnesium 2.4 Iron 149 TIBC 142 L Transferrin % Sat 105 H Ferritin 41 Total Bilirubin 5.3 H Conjugated Bilirubin 3.65 H AST 99 H ALT 20 Alkaline Phosphatase 48 Ammonia Creatine Kinase Troponin I Total Protein 5.1 L Albumin 1.8 L Lipase Vitamin B12 1867 H Folate 7.7 L TSH 2.52 Urine Color Urine Clarity Urine pH Ur Specific Greer Urine Protein Urine Ketones Urine Blood Urine Nitrite Urine Bilirubin Urine Urobilinogen Ur Leukocyte Esterase Urine RBC Urine WBC Ur Epithelial Cells Urine Crystals Urine Bacteria Urine Casts Urine Mucus Urine Other Ur Culture Indicated? Urine Glucose Urine Opiates Screen Cancelled Urine Methadone Screen Cancelled Ur Barbiturates Screen Cancelled Ur Tricyclics Screen Cancelled Ur Amphetamines Screen Cancelled U Benzodiazepines Scrn Cancelled Urine Cocaine Screen Cancelled Ur THC Screen Cancelled Ethyl Alcohol SARS-CoV-2 (PCR) Nasopharyn COVID-19 PCR Ref Test Perform Site Patient ABO/Rh Antibody Screen Crossmatch 11/12/20 06:30 WBC 12.21 H RBC 3.10 L Hgb 9.3 L Hct 27.8 L MCV 89.7 D MCH 30.0 MCHC 33.5 RDW 19.7 H Plt Count 151 MPV 10.7 Immature Gran % 0.8 Neutrophils % 79.9 Lymphocytes % 7.8 Monocytes % 10.8 Eosinophils % 0.5 Basophils % 0.2 Nucleated RBC % 0 Absolute Neutrophils 9.76 H Absolute Lymphocytes 0.95 L Absolute Monocytes 1.32 H Absolute Eosinophils 0.06 Absolute Basophils 0.02 RBC Morphology Poikilocytosis Anisocytosis PT INR VBG Lactate Sodium Potassium Chloride Carbon Dioxide Anion Gap BUN Creatinine Estimated GFR/1.73 m2 Glucose Calcium Magnesium Iron TIBC Transferrin % Sat Ferritin Total Bilirubin Conjugated Bilirubin AST ALT Alkaline Phosphatase Ammonia Creatine Kinase Troponin I Total Protein Albumin Lipase Vitamin B12 Folate TSH Urine Color Urine Clarity Urine pH Ur Specific Greer Urine Protein Urine Ketones Urine Blood Urine Nitrite Urine Bilirubin Urine Urobilinogen Ur Leukocyte Esterase Urine RBC Urine WBC Ur Epithelial Cells Urine Crystals Urine Bacteria Urine Casts Urine Mucus Urine Other Ur Culture Indicated? Urine Glucose Urine Opiates Screen Urine Methadone Screen Ur Barbiturates Screen Ur Tricyclics Screen Ur Amphetamines Screen U Benzodiazepines Scrn Urine Cocaine Screen Ur THC Screen Ethyl Alcohol SARS-CoV-2 (PCR) Nasopharyn COVID-19 PCR Ref Test Perform Site Patient ABO/Rh Antibody Screen Crossmatch Objective Narrative Objective Narrative: US RUQ pending
[2020-11-12 08:36] LABS: Lactate 1.2 mmol/L (0.6-1.4)
[2020-11-12 08:49] LABS: Ammonia 41 umol/L (11-32)
[2020-11-12] MEDS: PHYTONADIONE 10 MG in Normal Saline 50 ML 200 MG IVPB (08:52)
[2020-11-12] MEDS: Normal Saline 1,000 ML 1000 ML IV ×2 (08:53→11:08)
[2020-11-12] MEDS: Normal Saline Flush 10 ML SYR IVP (09:11)
--- NOTE | 2020-11-12 09:17 | PHA.REVIEW ---
Pharmacy Admission Review - Admission Clinical Review (Last Reviewed 11/11/20 @ 15:12 by Denis Carrillo MD) Leucocytosis (Acute) ANNALISA (acute kidney injury) (Acute) Discharge planning issues (Acute) DVT prophylaxis (Acute) Urinary tract infection symptoms (Acute) Painless jaundice (Acute) Anemia due to acute blood loss (Acute) Upper GI bleeding (Acute) Hypomagnesemia (Acute) Acute hypokalemia (Acute) Melena (Acute) Adult failure to thrive (Acute) Hypomagnesemia (Acute) No Known Allergies Allergy (Verified 11/11/20 12:09) Height 5 ft 10.08 in Weight 56.2 kg - Renal Dosing Renal Dosing: BUN 13 mg/dL (7-18) 11/12/20 06:30 Creatinine 0.83 mg/dL (0.70-1.30) 11/12/20 06:30 Medications needing adjustments: Reviewed (Crcl ~77 mL/min current meds okay) - Anticoagulation Anticoagulation: Hgb 9.3 g/dL (13.5-17.5) L 11/12/20 06:30 Hct 27.8 % (40.0-50.0) L 11/12/20 06:30 Plt Count 151 10^3/uL (130-400) 11/12/20 06:30 INR 1.7 (0.9-1.1) H 11/11/20 16:25 Creatinine 0.83 mg/dL (0.70-1.30) 11/12/20 06:30 DVT Prohphylaxis: Reviewed (Held due to anemia, upper GI bleed. Vit K given due to elevated INR, pt not on anticoagulation at home) Therapeutic Anticoagulation: N/A - Opiate Usage Evaluate Pain Scale/Pains Meds: N/A - Relevant Labs Sodium 143 mmol/L (136-145) 11/12/20 06:30 Potassium 2.3 mmol/L (3.5-5.1) L* 11/12/20 06:30 Chloride 103 mmol/L (98-107) 11/12/20 06:30 Magnesium 2.4 mg/dL (1.8-2.4) 11/12/20 06:30 Electrolytes, C-Reactive P, ESR: Reviewed (IV K+ replacement ordered) - DM Control DM Control: Glucose 76 mg/dL (74-106) 11/12/20 06:30 Insulin Dosing: N/A - Heart Failure/IA Heart Failure/IA: Troponin I Cancelled 11/11/20 16:44 EF%, LEW's, B-Blockers, Diuretics: Reviewed - BP Control BP Control: Blood Pressure 73/48 Blood Pressure 73/46 Blood Pressure 73/48 Blood Pressure 100/58 Blood Pressure 84/56 Blood Pressure 84/56 Blood Pressure 78/50 Blood Pressure 81/52 Blood Pressure 81/52 If elevated: Reviewed (hypotensive, continue to monitor) - Qtc Review If Elevated: Reviewed (QTc 491 on admission. Mag and K+ were low but improving, current meds okay.) - IV to PO Switch IV Medications: Reviewed - Home Meds Home Med List reviewed: Reviewed (It's recommended to separate admin of mag oxide from gabapentin.) Relevent Home Meds Not ordered & why?: furosemide, gabapentin, mag oxide (has IV mag ordered), mirtazapine. ondansetron - Current meds Current Medication Order Review: Reviewed - Comments Comments/Follow Ups: Watch BP, K+, mag, labs, for culture results and for med changes (IV to PO, avoid QT prolonging meds, resumption of home meds). Antibiotic Activity - Pharmacy Antibiotic Review Pharmacy Antibiotic Activity: Reviewed, no change (Ceftriaxone ordered for suspected UTI. Blood and urine cultures pending.)
[2020-11-12] MEDS: Tiotropium Bromide-Respimat 10 PUFF INH IH (09:30)
[2020-11-12] MEDS: MAGNESIUM SULFATE 8.12 MEQ, MULTIVITAMIN 10 ML, THIAMINE 100 MG, FOLIC ACID 1 MG in Nor... IV (10:00)
[2020-11-12 10:25] LABS: Creatine Kinase 664 U/L (39-308)
[2020-11-12 12:35] LABS: HCT 29.5 % (40.0-50.0); HGB 9.8 g/dL (13.5-17.5)
--- NOTE | 2020-11-12 12:39 | W.NUTCONSULT ---
Date of service: 11/12/20 Time of Service: 12:39 Nutritional Consult ASSESSMENT: 60 year old male admitted into ICU with hepatic encephalopathy with upper GI bleed, anemia, leucocytosis, erosive gastritis, barrets esophagus, ANNALISA, COPD, with UTI. Long standing hx of ETOH abuse. Supplemented with MVI, thiamin, folic acid for repletion. Medical chart indicates he has gained 8 lbs in last 90 days however BMI continues to indicate underweight status. Alton has been NPO x 3 days, remains full code. If unable to advance diet in next 3 days, recommend TPN or En if appropriate. Alton is at high nutritional risk, has elevated risk for skin breakdown and further nutritional depletion. Estimated Needs: [id number] kcal, 56-60 g protein, 1680 ml fluid NUTRITIONAL DIAGNOSIS: Moderate Malnutrition as evidenced by low BMI, muscle wasting and inability to meet nutrient needs in view of active GI bleed INTERVENTION: advance diet as appropriate consider EN or TPN if unable to advance diet by NPO day #5 MONITORING AND EVALUATION: diet, weight, labs, nutrient intake Time Spent in Nutritional Counseling and Treatment: 10
[2020-11-12 12:44] LABS: Anion Gap 17.5 mmol/L (3-11); BUN 12 mg/dL (7-18); CO2 21.5 mmol/L (21.0-32.0); CREATININE 0.72 mg/dL (0.70-1.30); Calcium 6.5 mg/dL (8.5-10.1); Chloride 106 mmol/L (98-107); Glucose 76 mg/dL (74-106); Sodium 145 mmol/L (136-145)
[2020-11-12 12:49] LABS: Potassium 2.8 mmol/L (3.5-5.1)
[2020-11-12] MEDS: cefTRIAXone 1 GM/50 ML BAG IVPB (14:33)
--- NOTE | 2020-11-12 15:25 | CHAPLAIN ---
Alton was lying in bed when I visited. He asked for a popsicle. He nurse, Temi, THO, explained that he couldn't have one in case he has surgery. He's convinced he's not having surgery, but he said Temi is a good nurse to he won't complain. Alton said he's hungry and frustrated. He hasn't been able to be in touch with family because he said there's not phone in his room. I suggested he check with the nurse. Alton became friendlier and engaged in a conversation. I'll continue to visit.
[2020-11-12] MEDS: POTASSIUM CHLORIDE/D5-0.9%NACL 1,000 ML 100 MEQ IV (20:19)
[2020-11-12] MEDS: Pantoprazole 40 MG VIAL 80 MG IVP (20:40)
[2020-11-12] MEDS: Normal Saline Flush 10 ML SYR 20 ML IVP (20:42)
--- NOTE | 2020-11-12 21:54 | W.PALLCONSUL ---
Date of service: 11/12/20 History of Present Illness History of Present Illness Chief Complaint: goals of care in pt with etohism, aftt, gi bleed Narrative: Alton is a chronically ill alcohol dependent man who is underweight, malnourished, medically frail, with a history of repeated GI bleeds. He lives alone but sees his mother, who is 82, daily. He often sees his good friend Terrell Bardales'Sunny, too. Alton admits he drinks too much. He has a terrible diet. He doesn't want or do much to take care of himself. He tells me I don't plan to hang around much longer. I've had just about enough. He was open to reviewing and signing a COLST form indicating minimal interventions, DNR/DNI status. Consults Consult date: 11/12/20 Requesting physician: Laila Ontiveros Assessment and Plan Assessment and plan (1) Palliative care patient: Status: Acute Assessment and plan: will continue to follow once discharged home (2) Goals of care, counseling/discussion: Status: Acute Assessment and plan: reviewed and filled out COLST DNR/DNI STATISTICS TUTOR like care willing to accept IVF for comfort, Abx for comfort does not want to return to hospital if he has another GI bleed would rather stay home and be made comfortable discussed hospice as an option if/when that happens (3) POLST (Physician Orders for Life-Sustaining Treatment): Status: Acute (4) DNR (do not resuscitate): Status: Acute (5) DNI (do not intubate): Status: Acute (6) Alcohol abuse: Status: Chronic Assessment and plan: long standing not interested in quitting was starting to tremor at time of my visit at risk for withdrawal is on CIWA has caused multiple health problems (7) Upper GI bleeding: Status: Acute Assessment and plan: does NOT want transfer to tertiary care hospital wants to be treated at [facility] and if indicated sent home with hospice services (8) Adult failure to thrive: Status: Acute Assessment and plan: malnourished chronically ill more dependent on mother for ADLs would benefit from HH on discharge Review of Systems Constitutional Constitutional: Reports anorexia, Reports fatigue, Reports frequent falls, Reports lethargy, Reports poor appetite, Reports weakness and Reports weight loss Eyes Eyes: Reports change in vision, Reports dry eyes and Reports requires corrective lenses ENT Ears, Nose, Mouth, and Throat: Reports dysphagia, Reports odynophagia and Reports disequilibrium Cardiovascular Cardiovascular: Reports lightheadedness, Reports dyspnea and Reports dyspnea on exertion Respiratory Respiratory: Reports dyspnea and Reports dyspnea on exertion Gastrointestinal Gastrointestinal: Reports bloating, Reports dysphagia, Reports early satiety, Reports dyspepsia, Reports odynophagia and Reports hematemesis Genitourinary Genitourinary: Reports difficulty urinating Musculoskeletal Musculoskeletal: Reports abnormal gait, Reports muscle weakness and Reports stiffness Neurologic Neurologic: Reports abnormal gait, Reports frequent falls, Reports memory loss, Reports tremor(s) (hands), Reports disequilibrium and Reports weakness Psychiatric Psychiatric: Reports anxiety, Reports depression, Reports difficulty concentrating, Reports hopelessness, Reports memory loss and Reports visual hallucinations Endocrine Endocrine: Reports cold intolerance and Reports fatigue Hematologic/Lymphatic Hematologic/Lymphatic: Reports easy bleeding and Reports easy bruising [facility] Medical History Abnormal abdominal CT scan Alcohol induced fatty liver Alcohol use disorder Alcohol use disorder Anemia, iron deficiency Arthritis Atherosclerosis of abdominal aorta Hopson's esophagus determined by endoscopy Barretts esophagus Bone spur of foot Chronic iron deficiency anemia COPD (chronic obstructive pulmonary disease) DDD (degenerative disc disease) Dehydration Dehydration, mild Depression Depression with anxiety Diverticulosis DNI (do not intubate) DNR (do not resuscitate) Erosive gastritis Erosive gastritis Esophageal reflux Essential tremor Fatty liver Gastroenteritis Goals of care, counseling/discussion Hematemesis Hepatitis A Hyperlipemia Hypokalemia due to excessive gastrointestinal loss of potassium Hypomagnesemia Insomnia Left knee pain LLQ abdominal pain Low back pain Lower extremity edema Nonspecific ST-T wave electrocardiographic changes Osteoarthritis (arthritis due to wear and tear of joints) Palliative care patient POLST (Physician Orders for Life-Sustaining Treatment) signed 11/12/20 Rectal polyp Smoker unmotivated to quit Suspected COVID-19 virus infection Tetrahydrocannabinol (THC) use disorder, moderate, dependence Thrombocytopenia Tobacco use disorder Transaminitis Urinary incontinence Urinary urgency (08/14/17) Surgical History History of foot surgery Hx of colonoscopy Hx of esophagogastroduodenoscopy Family History (Updated 11/12/20 @ 22:05 by Cecile Phelan MD) Sister Anxiety Depression Father Cancer Mother Anxiety Social History (Updated 11/12/20 @ 22:08 by Cecile Phelan MD) Smoking/Tobacco Use Status: Current every day Tobacco Type: cigarettes Smoking packs per day: 1.5 Smoking cigarettes per day: 30.0 Smoking risk assessment performed?: Yes Alcohol Intake: current Alcohol Intake frequency: 3 or more drinks per day Alcohol type: beer Counseling provided: provider counseling Drug use: Daily Substance use type: marijuana Counseling given: Yes Details: No IV Drug Use Adopted: No Caregiver/Support person: Yes (mom sees him at his house nearly every day) Foster care: No Household members: none Housing: house Number of Children: 0 Communication Needs: Corrective Lenses Education Level: high school Do you need help understanding health information?: Often current occupation: Unemployed Sexually active: No Do you think of yourself as: straight/heterosexual Current gender identity: male What is your relationship status?: never How often do you talk on the phone with friends or family?: three or more times per week How often do you get together with friends or relatives?: three or more times per week Panel score (0-1 are the most socially isolated patients): 1 What type of physical activity do you participate in: none and sedentary lifestyle Special pito needs: No Agree to transfusion: No Seatbelt use: always Drive intox or ride w/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 Mom visits nearly daily. Friend Terrell Salvador visits every 3 weeks or so. Drinks and smokes too much. Always has. Feeling as if his health is giving out on him. This is not his first GI bleed. Not interested in quitting etoh or cigs. Knows it is killing him. Exam Const General: comfortable, no acute distress and frail appearing Nutritional Appearance: cachectic Orientation: alert and awake [facility] Head: normocephalic Eyes Pupils: PERRL Resp Effort & Inspection: normal respiratory effort Auscultation: clear to auscultation bilaterally Cardio Rate: regular rate Rhythm: regular rhythm GI Inspection: normal to inspection Palpation: soft, hepatomegaly, no hernias and nontender Auscultation: normal bowel sounds Rectal Exam: deferred Skin General skin exam: jaundice Neuro General: patient alert and patient awake Cognition: normal cognition Speech: speech normal Gait: other (bedbound, too weak to stand) Motor: tremor, strength abnormal and asterixis Psych Appearance: disheveled Speech and Movement: speech clear Mood: anxious mood Affect: sad and anxious affect Attitude: cooperative Thought Process: confabulating and impoverished Insight: fair Judgment: limited Other: knows his bad habits are killing him unable to change at this time in his life--likely never will by his admission Results Last Vital Signs Temp 97.9 F 11/12/20 19:15 Pulse 73 11/12/20 19:30 Resp 25 H 11/12/20 19:50 BP 115/59 L 11/12/20 19:30 Pulse Ox 99 11/12/20 19:50 Labs Result diagrams: 11/12/20 12:15 11/12/20 12:15 Labs: Laboratory Results - last 24 hr 11/11/20 11/11/20 11/11/20 14:30 14:35 15:20 WBC RBC Hgb Hct MCV MCH MCHC RDW Plt Count MPV Immature Gran % Neutrophils % Lymphocytes % Monocytes % Eosinophils % Basophils % Nucleated RBC % Absolute Neutrophils Absolute Lymphocytes Absolute Monocytes Absolute Eosinophils Absolute Basophils VBG Lactate Sodium Potassium Chloride Carbon Dioxide Anion Gap BUN Creatinine Estimated GFR/1.73 m2 Glucose Calcium Magnesium Iron TIBC Transferrin % Sat Ferritin Total Bilirubin Conjugated Bilirubin AST ALT Alkaline Phosphatase Ammonia Creatine Kinase Troponin I Total Protein Albumin Vitamin B12 Folate TSH Urine Color Yellow Urine Clarity Clear Urine pH 6.5 Ur Specific [place] 1.020 Urine Protein 30 H Urine Ketones 15 H Urine Blood Moderate H Urine Nitrite Negative Urine Bilirubin Large H Urine Urobilinogen 2.0 H Ur Leukocyte Esterase Negative Urine RBC 10-20 H Urine WBC 3-5 Ur Epithelial Cells Rare Urine Crystals Negative Urine Bacteria Negative Urine Casts 0-2 hyaline Urine Mucus Negative Urine Other Few yeast Ur Culture Indicated? Yes Urine Glucose Negative Urine Opiates Screen Urine Methadone Screen Ur Barbiturates Screen Ur Tricyclics Screen Ur Amphetamines Screen U Benzodiazepines Scrn Urine Cocaine Screen Ur THC Screen SARS-CoV-2 (PCR) Negative Nasopharyn COVID-19 PCR Not Applicable Ref Test Perform Site [facility] lab Patient ABO/Rh A Negative Antibody Screen Negative Crossmatch See Detail 11/11/20 11/11/20 11/11/20 16:44 22:10 22:10 WBC RBC Hgb 8.4 L Hct 25.5 L MCV MCH MCHC RDW Plt Count MPV Immature Gran % Neutrophils % Lymphocytes % Monocytes % Eosinophils % Basophils % Nucleated RBC % Absolute Neutrophils Absolute Lymphocytes Absolute Monocytes Absolute Eosinophils Absolute Basophils VBG Lactate Sodium Potassium Chloride Carbon Dioxide Anion Gap BUN Creatinine Estimated GFR/1.73 m2 Glucose Calcium Magnesium Iron TIBC Transferrin % Sat Ferritin Total Bilirubin Conjugated Bilirubin AST ALT Alkaline Phosphatase Ammonia Creatine Kinase Troponin I Cancelled Total Protein Albumin Vitamin B12 Folate TSH Urine Color Urine Clarity Urine pH Ur Specific [place] Urine Protein Urine Ketones Urine Blood Urine Nitrite Urine Bilirubin Urine Urobilinogen Ur Leukocyte Esterase Urine RBC Urine WBC Ur Epithelial Cells Urine Crystals Urine Bacteria Urine Casts Urine Mucus Urine Other Ur Culture Indicated? Urine Glucose Urine Opiates Screen Negative Urine Methadone Screen Negative Ur Barbiturates Screen Negative Ur Tricyclics Screen Negative Ur Amphetamines Screen Negative U Benzodiazepines Scrn Negative Urine Cocaine Screen Negative Ur THC Screen Positive A SARS-CoV-2 (PCR) Nasopharyn COVID-19 PCR Ref Test Perform Site Patient ABO/Rh Antibody Screen Crossmatch 11/11/20 11/11/20 11/12/20 22:10 22:36 06:30 WBC RBC Hgb Hct MCV MCH MCHC RDW Plt Count MPV Immature Gran % Neutrophils % Lymphocytes % Monocytes % Eosinophils % Basophils % Nucleated RBC % Absolute Neutrophils Absolute Lymphocytes Absolute Monocytes Absolute Eosinophils Absolute Basophils VBG Lactate Sodium 140 143 Potassium 2.0 L* 2.3 L* Chloride 99 103 Carbon Dioxide 25.4 23.3 Anion Gap 15.6 H 16.7 H BUN 18 13 Creatinine 1.01 0.83 Estimated GFR/1.73 m2 >= 60.00 >= 60.00 Glucose 88 76 Calcium 6.5 L 6.4 L* Magnesium 1.5 L 2.4 Iron TIBC Transferrin % Sat Ferritin 41 Total Bilirubin 5.3 H Conjugated Bilirubin 3.65 H AST 99 H ALT 20 Alkaline Phosphatase 48 Ammonia Creatine Kinase Troponin I Total Protein 5.1 L Albumin 1.8 L Vitamin B12 1867 H Folate 7.7 L TSH 2.52 Urine Color Urine Clarity Urine pH Ur Specific [place] Urine Protein Urine Ketones Urine Blood Urine Nitrite Urine Bilirubin Urine Urobilinogen Ur Leukocyte Esterase Urine RBC Urine WBC Ur Epithelial Cells Urine Crystals Urine Bacteria Urine Casts Urine Mucus Urine Other Ur Culture Indicated? Urine Glucose Urine Opiates Screen Cancelled Urine Methadone Screen Cancelled Ur Barbiturates Screen Cancelled Ur Tricyclics Screen Cancelled Ur Amphetamines Screen Cancelled U Benzodiazepines Scrn Cancelled Urine Cocaine Screen Cancelled Ur THC Screen Cancelled SARS-CoV-2 (PCR) Nasopharyn COVID-19 PCR Ref Test Perform Site Patient ABO/Rh Antibody Screen Crossmatch 11/12/20 11/12/20 11/12/20 06:30 06:30 08:24 WBC 12.21 H RBC 3.10 L Hgb 9.3 L Hct 27.8 L MCV 89.7 D MCH 30.0 MCHC 33.5 RDW 19.7 H Plt Count 151 MPV 10.7 Immature Gran % 0.8 Neutrophils % 79.9 Lymphocytes % 7.8 Monocytes % 10.8 Eosinophils % 0.5 Basophils % 0.2 Nucleated RBC % 0 Absolute Neutrophils 9.76 H Absolute Lymphocytes 0.95 L Absolute Monocytes 1.32 H Absolute Eosinophils 0.06 Absolute Basophils 0.02 VBG Lactate Sodium Potassium Chloride Carbon Dioxide Anion Gap BUN Creatinine Estimated GFR/1.73 m2 Glucose Calcium Magnesium Iron 149 TIBC 142 L Transferrin % Sat 105 H Ferritin Total Bilirubin Conjugated Bilirubin AST ALT Alkaline Phosphatase Ammonia 41 H Creatine Kinase Troponin I Total Protein Albumin Vitamin B12 Folate TSH Urine Color Urine Clarity Urine pH Ur Specific [place] Urine Protein Urine Ketones Urine Blood Urine Nitrite Urine Bilirubin Urine Urobilinogen Ur Leukocyte Esterase Urine RBC Urine WBC Ur Epithelial Cells Urine Crystals Urine Bacteria Urine Casts Urine Mucus Urine Other Ur Culture Indicated? Urine Glucose Urine Opiates Screen Urine Methadone Screen Ur Barbiturates Screen Ur Tricyclics Screen Ur Amphetamines Screen U Benzodiazepines Scrn Urine Cocaine Screen Ur THC Screen SARS-CoV-2 (PCR) [facility] Ref Test Perform Site Patient ABO/Rh Antibody Screen Crossmatch 11/12/20 11/12/20 11/12/20 08:24 08:24 12:15 WBC RBC Hgb Hct MCV MCH MCHC RDW Plt Count MPV Immature Gran % Neutrophils % Lymphocytes % Monocytes % Eosinophils % Basophils % Nucleated RBC % Absolute Neutrophils Absolute Lymphocytes Absolute Monocytes Absolute Eosinophils Absolute Basophils VBG Lactate 1.2 Sodium 145 Potassium 2.8 L* Chloride 106 Carbon Dioxide 21.5 Anion Gap 17.5 H BUN 12 Creatinine 0.72 Estimated GFR/1.73 m2 >= 60.00 Glucose 76 Calcium 6.5 L Magnesium Iron TIBC Transferrin % Sat Ferritin Total Bilirubin Conjugated Bilirubin AST ALT Alkaline Phosphatase Ammonia Creatine Kinase 664 H Troponin I Total Protein Albumin Vitamin B12 Folate TSH Urine Color Urine Clarity Urine pH Ur Specific [place] Urine Protein Urine Ketones Urine Blood Urine Nitrite Urine Bilirubin Urine Urobilinogen Ur Leukocyte Esterase Urine RBC Urine WBC Ur Epithelial Cells Urine Crystals Urine Bacteria Urine Casts Urine Mucus Urine Other Ur Culture Indicated? Urine Glucose Urine Opiates Screen Urine Methadone Screen Ur Barbiturates Screen Ur Tricyclics Screen Ur Amphetamines Screen U Benzodiazepines Scrn Urine Cocaine Screen Ur THC Screen SARS-CoV-2 (PCR) Nasopharyn COVID-19 PCR Ref Test Perform Site Patient ABO/Rh Antibody Screen Crossmatch 11/12/20 12:15 WBC RBC Hgb 9.8 L Hct 29.5 L MCV MCH MCHC RDW Plt Count MPV Immature Gran % Neutrophils % Lymphocytes % Monocytes % Eosinophils % Basophils % Nucleated RBC % Absolute Neutrophils Absolute Lymphocytes Absolute Monocytes Absolute Eosinophils Absolute Basophils VBG Lactate Sodium Potassium Chloride Carbon Dioxide Anion Gap BUN Creatinine Estimated GFR/1.73 m2 Glucose Calcium Magnesium Iron TIBC Transferrin % Sat Ferritin Total Bilirubin Conjugated Bilirubin AST ALT Alkaline Phosphatase Ammonia Creatine Kinase Troponin I Total Protein Albumin Vitamin B12 Folate TSH Urine Color Urine Clarity Urine pH Ur Specific [place] Urine Protein Urine Ketones Urine Blood Urine Nitrite Urine Bilirubin Urine Urobilinogen Ur Leukocyte Esterase Urine RBC Urine WBC Ur Epithelial Cells Urine Crystals Urine Bacteria Urine Casts Urine Mucus Urine Other Ur Culture Indicated? Urine Glucose Urine Opiates Screen Urine Methadone Screen Ur Barbiturates Screen Ur Tricyclics Screen Ur Amphetamines Screen U Benzodiazepines Scrn Urine Cocaine Screen Ur THC Screen SARS-CoV-2 (PCR) Nasopharyn COVID-19 PCR Ref Test Perform Site Patient ABO/Rh Antibody Screen Crossmatch
[2020-11-12 22:24] LABS: Anion Gap 16.6 mmol/L (3-11); BUN 9 mg/dL (7-18); CO2 19.4 mmol/L (21.0-32.0); Chloride 108 mmol/L (98-107); Glucose 97 mg/dL (74-106); Potassium 3.9 mmol/L (3.5-5.1); Sodium 144 mmol/L (136-145)
[2020-11-12 22:31] LABS: Calcium 6.4 mg/dL (8.5-10.1)
[2020-11-13] VITALS (31 sets, daily range): BP systolic 78–117; BP diastolic 51–83; PULSE 79–121; RESP 16–34; TEMP 36.3–36.8; O2SAT 94–100
[2020-11-13] MEDS: ACETAMINOPHEN 1,000 MG/100 ML BTL 400 MG IVPB (00:30)
[2020-11-13] MEDS: LORazepam 2 MG/ML VIAL IVP (04:24)
[2020-11-13] MEDS: POTASSIUM CHLORIDE/D5-0.9%NACL 1,000 ML 100 MEQ IV (06:28)
[2020-11-13 06:43] LABS: Abs Immature Grans 0.04 10^3/uL (0.0-0.06); Absolute Eosinophil Count 0.07 10^3/uL (0.0-0.7); Absolute Lymphocyte Count 1.25 10^3/uL (1.2-3.4); Absolute Monocyte Count 1.07 10^3/uL (0.1-0.8); Basophils % 0.3; Eosinophils % 0.6; HCT 28.3 % (40.0-50.0); HGB 9.6 g/dL (13.5-17.5); Immature Grans % 0.3; Lymphocytes % 10.9; MCH 30.5 pg (27.0-33.0); MCHC 33.9 % (32.0-36.0); MCV 89.8 fL (80-95); MPV 10.9 fL (8.0-11.0); Monocytes % 9.3; Neutrophils % 78.6; Nucleated RBC 0 %; Platelet Count 164 10^3/uL (130-400); RBC 3.15 10^6/uL (4.36-5.78); RDW 21.5 % (11.8-14.1); RDW-SD 58.5 fL; WBC 11.51 10^3/uL (4.4-10.8)
[2020-11-13 06:51] LABS: Ammonia < 10 umol/L (11-32)
[2020-11-13 06:56] LABS: Absolute Basophil Count 0.03 10^3/uL (0.0-0.2); Absolute Neutrophil Count 9.05 10^3/uL (1.2-6.7)
[2020-11-13 08:08] LABS: Anion Gap 11.5 mmol/L (3-11); BUN 7 mg/dL (7-18); CO2 24.5 mmol/L (21.0-32.0); CREATININE 0.74 mg/dL (0.70-1.30); Calcium 6.6 mg/dL (8.5-10.1); Chloride 111 mmol/L (98-107); Glucose 116 mg/dL (74-106); Magnesium 1.4 mg/dL (1.8-2.4); Potassium 3.6 mmol/L (3.5-5.1); Sodium 147 mmol/L (136-145)
--- NOTE | 2020-11-13 08:17 | W.PM.PROGNOT ---
Date of Service Date of service: 11/13/20 Time of Service: 14:27 Assessment and Plan Assessment and plan (1) Anemia due to acute blood loss: Status: Acute Assessment and plan: Likely due to recurrent upper GI bleeding in setting of h/o erosive esophagitis, ongoing alcohol abuse, and medication noncompliance. Coagulopathy is contributing. S/p 2 units pRBCs on this admission, but H/H now stabilized. Trial clear liquids. Decrease protonix to 40 mg IV Q12H, continue carafate. No plans for repeat EGD at this time as bleeding has apparently slowed/stopped. (2) Upper GI bleeding: Status: Acute Assessment and plan: As above S/p vitamin K and 2 units pRBCs. MOnitor in the ICU as we are trialing clears. (3) Painless jaundice: Status: Acute Assessment and plan: US abdomen with hepatic steatosis. I suspect that the patient has alcoholic hepatitis. Maddrey score 19.4 - improved from 31.5 yesterday. Not requiring steroids. Continue to monitor Maddrey score. Trend LFTs, PT/INR - if Maddrey score worsens, would initiate steroids. (4) Ascites: Status: Acute Assessment and plan: Probably due to iatrogenic fluid overload superimposed on poor synthetic function of the liver/alcoholic hepatitis/hepatic steatosis. D/c IVF as BPs are now permitting of this and trial 10 mg of IV lasix. (5) Bilateral pleural effusion: Status: Acute Assessment and plan: As above. Additionally, I cannot rule out pneumonia, so will continue ceftriaxone. Consider expanding coverage to zosyn if actually spikes a fever/develops a cough. (6) Hypotension: Status: Resolved Assessment and plan: D/c IVF. (7) Acute hypokalemia: Status: Resolved Assessment and plan: Recheck in am (8) Hypomagnesemia: Status: Acute Assessment and plan: Replete and Recheck in am. (9) Leucocytosis: Status: Acute Assessment and plan: UA negative. Enterococci in the urine are likely reflective of colonization, but will repeat UA. I think the infiltrate seen on CXR today is likely atelectasis as he has had no fever or cough. Afebrile. Leucocytosis is likely due to GI bleeding. Blood cx negative to date. WIll continue to monitor white count. (10) Urinary tract infection symptoms: Status: Acute Assessment and plan: S/p walters. No evidence of a UTI on original UA, but given mental status changes (more lethargic), will repeat UA today. ?urinary retention. Will need a voiding trial on discontinuation of walters catheter. (11) ANNALISA (acute kidney injury): Status: Resolved Assessment and plan: D/c IVF. Giving 1 time dose of lasix (12) Hepatic encephalopathy: Status: Resolved Assessment and plan: Not requiring lactulose at this time. (13) Coagulopathy: Status: Acute Assessment and plan: In setting of alcoholic hepatitis. No evidence of cirrhosis by ultrasound, though does have hepatic steatosis. S/p vitamin K yesterday, today INR is 1.4, down from 1.7. Monitor Maddrey scores. (14) Alcohol abuse: Status: Chronic Assessment and plan: Monitor on CIWA. Did have symptoms of withdrawal overnight, but I think he is having a hard time clearing ativan out of his system. Provide vitamins/thiamine. (15) COPD (chronic obstructive pulmonary disease): Status: Chronic Assessment and plan: not in acute exacerbation. Continue home therapy (16) DVT prophylaxis: Status: Acute Assessment and plan: TEDs/SCDs. Chemical DVT ppx is contraindicated in setting of active GI bleeding (17) Discharge planning issues: Status: Acute Assessment and plan: DNR/DNI - signed COLST form with palliative care. Continues to require ICU. Total Critical Care Time 1 hr. Subjective Subjective Interval history since last seen: Mr Awad feels short of breath. Per nursing today, he has been less talkative and more somnolent all morning. Denies dizziness, chest pain, nausea, abdominal pain. Hungry and thirsty. Nursing notes the abdomen is more distended today. CIWA 8-9, 6-12, ativan 3 mg of ativan at 4:30 this am. (Hallucinations, anxiety, restlessness, headache.) +BM (dark brown/black). 275 cc dark urine in 8 hrs. SR. No ectopy. MAP 65. Exam Narrative Exam Narrative: General: lethargic cachectic arousable, but less talkative middle-aged male, does not look visibly dyspneic/tachypneic HEENT: EOMI, MMM Heart: RRR, no m/r/g Lungs: wet respiratory sounds. Abdomen: soft, nontender, distended c/w ascites Extremities: no edema BLE's in TEDs Objective Last Vital Signs Temp 36.7 C 11/12/20 23:30 Pulse 99 H 11/13/20 06:01 Resp 30 H 11/13/20 06:01 BP 99/78 L 11/13/20 06:01 Pulse Ox 97 11/13/20 06:01 Laboratory Results - last 24 hr 11/12/20 11/12/20 11/12/20 08:24 08:24 08:24 WBC RBC Hgb Hct MCV MCH MCHC RDW Plt Count MPV Immature Gran % Neutrophils % Lymphocytes % Monocytes % Eosinophils % Basophils % Nucleated RBC % Absolute Neutrophils Absolute Lymphocytes Absolute Monocytes Absolute Eosinophils Absolute Basophils VBG Lactate 1.2 Sodium Potassium Chloride Carbon Dioxide Anion Gap BUN Creatinine Estimated GFR/1.73 m2 Glucose Calcium Magnesium Ammonia 41 H Creatine Kinase 664 H 11/12/20 11/12/20 11/12/20 12:15 12:15 22:10 WBC RBC Hgb 9.8 L Hct 29.5 L MCV MCH MCHC RDW Plt Count MPV Immature Gran % Neutrophils % Lymphocytes % Monocytes % Eosinophils % Basophils % Nucleated RBC % Absolute Neutrophils Absolute Lymphocytes Absolute Monocytes Absolute Eosinophils Absolute Basophils VBG Lactate Sodium 145 144 Potassium 2.8 L* 3.9 D Chloride 106 108 H Carbon Dioxide 21.5 19.4 L Anion Gap 17.5 H 16.6 H BUN 12 9 Creatinine 0.72 0.70 Estimated GFR/1.73 m2 >= 60.00 >= 60.00 Glucose 76 97 Calcium 6.5 L 6.4 L* Magnesium Ammonia Creatine Kinase 11/13/20 11/13/20 11/13/20 06:20 06:20 06:20 WBC 11.51 H RBC 3.15 L Hgb 9.6 L Hct 28.3 L MCV 89.8 MCH 30.5 MCHC 33.9 RDW 21.5 H Plt Count 164 MPV 10.9 Immature Gran % 0.3 Neutrophils % 78.6 Lymphocytes % 10.9 Monocytes % 9.3 Eosinophils % 0.6 Basophils % 0.3 Nucleated RBC % 0 Absolute Neutrophils 9.05 H Absolute Lymphocytes 1.25 Absolute Monocytes 1.07 H Absolute Eosinophils 0.07 Absolute Basophils 0.03 VBG Lactate Sodium 147 H Potassium 3.6 Chloride 111 H Carbon Dioxide 24.5 Anion Gap 11.5 H BUN 7 Creatinine 0.74 Estimated GFR/1.73 m2 >= 60.00 Glucose 116 H Calcium 6.6 L Magnesium 1.4 L Ammonia < 10 L Creatine Kinase Objective Narrative Objective Narrative: US abdomen: 1. Hepatomegaly and hepatic steatosis. Ascites also evident in all quadrants.. Portal vein there is not exhibit reversal of flow. Portal vein diameter is 13 millimeters, minimally prominent. There are no discrete focal hepatic lesions evident on these images. 2. There is some sludge in the gallbladder without evidence of shadowing calculi. Patient was apparently not tender over this area. CBD was not able to be located due to overlying bowel gas. Pancreas is also not well seen. 3. Kidneys unremarkable. CXR: 1. Interval development of bilateral pleural effusions. 2. Interval development of a left basilar infiltrate which may represent atelectasis or pneumonia.
[2020-11-13] MEDS: Pantoprazole 40 MG VIAL 80 MG IVP (08:23)
[2020-11-13] MEDS: Tiotropium Bromide-Respimat 10 PUFF INH IH (08:23)
[2020-11-13] MEDS: MAGNESIUM SULFATE 4 GM/100 ML BAG IVPB (09:30)
[2020-11-13] MEDS: Normal Saline Flush 10 ML SYR 20 ML IVP ×2 (09:31→21:17)
--- NOTE | 2020-11-13 09:53 | W.NUTRFU ---
Date of service: 11/13/20 Time of Service: 09:53 Nutritional Follow up NOTE: Alton remains NPO. Followed by pallative care, does not want aggressive interventions to renourish, will accept IV hydration. Expected to discharge home when stable on hospice services. PROFESSOR OF LITERACY in place. Will conitnue to follow. Time Spent in Nutritional Counseling and Treatment: 0
[2020-11-13 10:55] LABS: ALT 27 U/L (16-63); AST 92 U/L (15-37); Albumin 1.8 g/dL (3.4-5.0); Alkaline Phosphatase 49 U/L (46-116); Bilirubin, Direct 2.86 mg/dL (0.00-0.20); Bilirubin, Total 3.8 mg/dL (0.2-1.0); Total Protein 5.1 g/dL (6.4-8.2)
[2020-11-13] MEDS: Sucralfate 1 GM TAB PO ×2 (11:20→21:16)
[2020-11-13 11:54] LABS: Prothrombin Time 14.4 sec (9.3-11.0)
[2020-11-13 11:57] LABS: INR 1.4 (0.9-1.1)
--- NOTE | 2020-11-13 12:31 | DI.RAD_ITS ---
EXAM: XR PORTABLE CHEST AP CLINICAL HISTORY: shortness of breath TECHNIQUE: 2D digital imaging was performed. COMPARISON: CR XR PORTABLE CHEST AP from 11/11/2020 FINDINGS: MEDIASTINUM: Normal. HEART: Normal. PULMONARY VASCULATURE: Normal. LUNGS: Since the prior examination there has developed a left basilar opacity which may represent ate lectasis or pneumonia. PLEURAL SPACE: The patient has developed a small left pleural effusion. There is also haziness in th e right base which may represent a small right pleural effusion. No pneumothorax. BONE:Within normal limits for the patient's age. OTHER FINDINGS:Normal. IMPRESSION: 1. Interval development of bilateral pleural effusions. 2. Interval development of a left basilar infiltrate which may represent atelectasis or pneumonia. DATA REPOSITORY: RADIATION DOSE DELIVERED:
--- NOTE | 2020-11-13 13:03 | IN_ITS ---
Date of service: 11/13/20 Time of Service: 13:03 PT Notes Visit Reasons: SEPSIS,ANNALISA WITH HYPOKALEMIA,HYPOMAGNESEMIA,ANEMIA, Physical Therapy Inpatient Initial Evaluation Date: 11/13/2020 Referring Doctor: Laila Ontiveros MD PT Orders: PT CONSULT: Limited ability Precautions: Fall. Standard. Activity as tolerated. Patient Profile/Admitting Diagnosis: Alton is a 60-year-old male with past medical history significant for EtOH abuse and COPD who presented to the ED via EMS on 11/11/2019 with generalized weakness, confusion, increased urinary frequency, medication noncompliance, difficulty with ambulation, and bilateral leg swelling. He was found at home by his mother with altered mental status and generalized weakness. He is diagnosed with anemia due to acute blood loss, upper GI bleeding, acute hypokalemia, hypomagnesemia, leukocytosis, urinary tract infection, jaundice, and acute kidney injury. PMHX: Medical History (Updated 11/11/20 @ 16:48 by Laila Ontiveros MD) Abnormal abdominal CT scan Alcohol induced fatty liver Alcohol use disorder Alcohol use disorder Anemia, iron deficiency Arthritis Atherosclerosis of abdominal aorta Hopson's esophagus determined by endoscopy Barretts esophagus Bone spur of foot Chronic iron deficiency anemia COPD (chronic obstructive pulmonary disease) DDD (degenerative disc disease) Dehydration Dehydration, mild Depression Depression with anxiety Diverticulosis Erosive gastritis Erosive gastritis Esophageal reflux Essential tremor Fatty liver Gastroenteritis Hematemesis Hepatitis A Hyperlipemia Hypokalemia due to excessive gastrointestinal loss of potassium Hypomagnesemia Insomnia Left knee pain LLQ abdominal pain Low back pain Lower extremity edema Nonspecific ST-T wave electrocardiographic changes Osteoarthritis (arthritis due to wear and tear of joints) Rectal polyp Smoker unmotivated to quit Suspected COVID-19 virus infection Tetrahydrocannabinol (THC) use disorder, moderate, dependence Thrombocytopenia Tobacco use disorder Transaminitis Urinary incontinence Urinary urgency (08/14/17) Surgical History History of foot surgery Hx of colonoscopy Hx of esophagogastroduodenoscopy Social History/Home Situation: Lives alone in a private home in [place] with 3 steps with the rails to enter. Not fully able to get a reliable history due to persistent somnolence. Equipment Owned/DME: None Subjective: Where is my breakfast? Objective: General Observation: Supine in ICU bed. Telemetry monitoring in place. Palacios catheter in place. IV in bilateral UEs. Mental Status: Somnolent. Speech not fully discernible 50% of the time due to mental status. Pain: None reported. ROM: Right Upper Extremity: Shoulder Flexion allows about 100 degrees. Shoulder abduction allows about 90 degrees. Elbow flexion WFL. Wrist flexion WFL. Opening and closing of hand WFL. Left Upper Extremity: Shoulder Flexion allows about 100 degrees. Shoulder abduction allows about 90 degrees. Elbow flexion WFL. Wrist flexion WFL. Opening and closing of hand WFL. Right Lower Extremity: Hip flexion unable to lift thigh while seated at EOB. Hip abduction WFL. Knee flexion 30 to 90 degrees. Ankle dorsiflexion 20 degrees to neutral. Ankle plantarflexion 20 degrees. Left Lower Extremity: Hip flexion unable to lift thigh while seated at EOB. Hip abduction WFL. Knee flexion 30 to 90 degrees. Ankle dorsiflexion 20 degrees to neutral. Ankle plantarflexion 20 degrees. Strength: Right Upper Extremity: Shoulder flexors 3-/5. Shoulder abductors 3-/5. Elbow flexors 4-/5. Elbow extensors 4-/5. Beading Installer weak but functional. Left Upper Extremity: Shoulder flexors 3-/5. Shoulder abductors 3-/5. Elbow flexors 4-/5. Elbow extensors 4-/5. Beading Installer weak but functional. Right Lower Extremity: Hip flexors 3-/5. Hip abductors 4-/5. Knee flexors 3-/5. Knee extensors 3-/5. Ankle dorsiflexors 3-/5. Ankle plantarflexors 3-/5. Left Lower Extremity: Hip flexors 3-/5. Hip abductors 4-/5. Knee flexors 3-/5. Knee extensors 3-/5. Ankle dorsiflexors 3-/5. Ankle plantarflexors 3-/5. Sensation: Unable to test at this time Bed Mobility/Transfers: Supine to sit moderate assist Sit to supine moderate assist Sit to stand not tested, patient too weak and alertness too low. Will reassess when appropriate. Stand to sit not tested, patient too weak and alertness too low. Will reassess when appropriate. Bed to chair not tested, patient too weak and alertness too low. Will reassess when appropriate. Chair to bed not tested, patient too weak and alertness too low. Will reassess when appropriate. Gait: Deferred. Patient is too weak and his alertness too low. Will reassess when appropriate. THERA EX: With moderate verbal cueing and redirection, patient performed B SAQs x 5 and forward punch outs x 10 before reporting fatigue. Balance: Static Sitting: Fair Dynamic Sitting: Poor Static Standing: Unable to test Dynamic Standing: Unable to test Special Tests: Mobility Limitations Standardized Measure [facility] AM-PAC 6 clicks Basic Mobility Inpatient Short Form: Raw Score: 8 CMS Score: 87% deficit Informed Consent/Education: Patient instructed in purpose of PT consult and plan of care. Assessment: Remains somnolent. Only tolerated sitting at edge of bed for about 10 minutes and performed low amplitude AROM exercises as above. Deferred transfer and ambulation assessment today due to safety concerns. Alton demonstrates significant functional mobility decline with limited ability to participate in full PT evalaution due to decreased level of alertness. Speech is a little garbled and difficult to understand 100% of the time. Patient presents with clinical signs and symptoms consistent with current/admitting diagnoses that have resulted to mobility limitations, gait instability, generalized weakness, and impairment of motor control as demonstrated by the following impairment level findings: 1. Decreased strength to B UE/LE major muscle groups 2. Impaired sitting/standing balance 3. Impaired activity tolerance 4. Limitation of joint range of motion in B UE/LE 5. Somnolent 6. Impaired level of alertness Impairments are contributing to the following functional limitations: 1. Dependent bed mobility skills 2. Inability to participate in mobility assessment 3. Increased fall risk Patient is assessed as a 53257 high complexity based on the following: History: 60-year-old male with impairment level findings, functional limitations, and past medical history as indicated above Examination: Demonstrable impairment in strength, balance, and mobility level with underlying impairments and functional limitations as documented above Presentation:Evolving Decision Makin high complexity Goals: Goals X1 week 1. Supine-Sit independent 2. Sit-Supine independent 3. Sit-Stand independent 4. Stand-Sit independent 5. Bed-Chair independent 6. Chair-Bed independent 7. Independent gait on level surface with use of least restrictive device for at least 300 feet without report of pain nor dyspnea 8. Independent stair negotiation while holding onto bilateral rails for at least 10 steps without report of pain nor dyspnea 9. Independent with home exercise program 10. Good static and dynamic standing balance/tolerance Plan of Care/Treatment Plan: 1-2x/day, 7 days/week x 1 week. Plan of care has been reviewed with the VOICE NETWORK ENGINEER providing the service under Physical Therapy direction. Initiate Physical Therapy intervention for strengthening, bed mobility, transfers, gait, stairs, balance training, use of assistive device. DISCHARGE RECOMMENDATIONS: HH PT vs SNF depending on how patient will do mobility-marcano and medically in the next few days. TREATMENT CODE/TIME: 22831 x 33 minutes beginning at 13:03 PM. Thank you for the opportunity to participate in the care of this patient. Sabina Kumar PT, DPT, CLT [facility] [place], [place]
[2020-11-13] MEDS: cefTRIAXone 1 GM/50 ML BAG IVPB (14:06)
--- NOTE | 2020-11-13 14:18 | CMPROGNOTE_ITS ---
- If Service Date Differs Date of service: 11/13/20 Time of Service: 14:18 Care Management Progress Note S/O: Alton was lying in bed asleep each time CM came to see him. He had been medicated early this morning based on his CIWA scores and has been lethargic and sleepy since. When aroused he is confused and his speech is garbled and difficult to understand per nursing. A chest Xray done today revealed a new left basilar infiltrate as well as new bilateral pleural effusions. His blood pressu res have been a bit low and his heart rate in the high 90's to low 100s. Alton met with Dr. Phelan yesterday for a palliative consult and changed his code status to DNR/DNI. A: Alton is a 60 year old man admitted to [facility] on 11/11/20 with sepsis, anemia and hypokalemia and hypomagnesemia P:Alton remains ICU level of care and is being closely monitored. His disposition is not clear at this time and will be determined by the course of his illness. He has not been doing well at home and may need rehab when medically cleared. CM will continue to support Alton and his family and assess for discharge planning needs.
[2020-11-13] MEDS: Furosemide 20 MG/2 ML VIAL 10 MG IVP (15:38)
[2020-11-13] MEDS: Pantoprazole 40 MG VIAL IVP (21:16)
[2020-11-14] VITALS (51 sets, daily range): BP systolic 81–111; BP diastolic 43–79; PULSE 84–133; RESP 8–35; TEMP 36–36.3; O2SAT 91–100
[2020-11-14] MEDS: LORazepam 1 MG TAB PO/SL (01:43)
[2020-11-14 02:24] LABS: Bilirubin Small (Negative); Blood Large (Negative); Clarity Sl Cloudy (Clear); Glucose Negative (Negative); Ketones Negative (Negative); Leukocyte Esterase Negative (Negative); Nitrite Negative (Negative); Specific Gravity >= 1.030 (1.005-1.025); pH 5.5 (5-8)
[2020-11-14 02:37] LABS: Bacteria Negative HPF (Negative); C & S Indicated? Yes; Casts 3-5 Hyaline LPF (Negative); Crystals Negative HPF (Negative); Epithelial Cells Rare HPF (Negative); Mucus Trace (Negative); RBC >50 HPF (0-2)
[2020-11-14] MEDS: Sucralfate 1 GM TAB PO ×3 (06:54→11:26)
[2020-11-14 07:03] LABS: Abs Immature Grans 0.04 10^3/uL (0.0-0.06); Absolute Basophil Count 0.05 10^3/uL (0.0-0.2); Absolute Eosinophil Count 0.08 10^3/uL (0.0-0.7); Absolute Lymphocyte Count 1.75 10^3/uL (1.2-3.4); Absolute Neutrophil Count 9.64 10^3/uL (1.2-6.7); Basophils % 0.4; Eosinophils % 0.6; HCT 31.5 % (40.0-50.0); HGB 10.9 g/dL (13.5-17.5); Immature Grans % 0.3; Lymphocytes % 13.6; MCH 30.6 pg (27.0-33.0); MCHC 34.6 % (32.0-36.0); MCV 88.5 fL (80-95); MPV 10.4 fL (8.0-11.0); Monocytes % 10.1; Nucleated RBC 0 %; Platelet Count 168 10^3/uL (130-400); RBC 3.56 10^6/uL (4.36-5.78); RDW 22.1 % (11.8-14.1); RDW-SD 64.5 fL; WBC 12.85 10^3/uL (4.4-10.8)
[2020-11-14 07:12] LABS: INR 1.4 (0.9-1.1); Prothrombin Time 13.9 sec (9.3-11.0)
[2020-11-14 07:15] LABS: Anion Gap 10.4 mmol/L (3-11); BUN 4 mg/dL (7-18); CO2 24.6 mmol/L (21.0-32.0); CREATININE 0.72 mg/dL (0.70-1.30); Calcium 7.1 mg/dL (8.5-10.1); Chloride 107 mmol/L (98-107); Glucose 115 mg/dL (74-106); Potassium 3.1 mmol/L (3.5-5.1); Sodium 142 mmol/L (136-145)
[2020-11-14 07:19] LABS: ALT 25 U/L (16-63); AST 74 U/L (15-37); Albumin 1.9 g/dL (3.4-5.0); Alkaline Phosphatase 59 U/L (46-116); Bilirubin, Direct 2.82 mg/dL (0.00-0.20); Bilirubin, Total 3.8 mg/dL (0.2-1.0); Magnesium 1.4 mg/dL (1.8-2.4); Total Protein 5.5 g/dL (6.4-8.2)
[2020-11-14] MEDS: LORazepam 2 MG/ML VIAL IVP (07:54)
[2020-11-14] MEDS: Normal Saline Flush 10 ML SYR 20 ML IVP ×2 (07:55→21:07)
[2020-11-14] MEDS: Pantoprazole 40 MG VIAL IVP (07:56)
[2020-11-14] MEDS: Folic Acid 1 MG TAB PO (07:56)
[2020-11-14] MEDS: Normal Saline Flush 10 ML SYR IVP (07:56)
[2020-11-14] MEDS: Thiamine 100 MG TAB PO (07:56)
[2020-11-14] MEDS: Multivitamin TAB 1 TAB PO (07:56)
[2020-11-14] MEDS: Tiotropium Bromide-Respimat 10 PUFF INH IH (07:58)
--- NOTE | 2020-11-14 08:53 | CMPROGNOTE_ITS ---
- If Service Date Differs Date of service: 11/14/20 Time of Service: 08:53 Care Management Progress Note S/O: Alton remains on CIWA protocol and scored a 10 on the CIWA this morning. He is asleep when CM comes to meet with him. Nursing staff report he was interactive earlier and ate lunch, but has been sleeping since. A review of his medical chart reveals Alton remains hypokalemic and hypomagnesemic. His abx was changed to Zosyn today for better coverage. Blood work done this morning shows an elevated WBC at 12.85, a low RBC at 3.56, and a low Hgb at 10.9. CM will continue to follow. A: Alton is a 60 year old man admitted to [facility] on 11/11/20 with sepsis, anemia and hypokalemia and hypomagnesemia. P: No change in plan. Alton remains ICU level of care and is being closely monitored. His disposition is not clear at this time and will be determined by the course of his illness. He has not been doing well at home and may need rehab when medically cleared. He, however, expressed his wish to return home during a palliative consultation. CM will continue to support Alton and his family and assess for discharge planning needs.
[2020-11-14] MEDS: MAGNESIUM SULFATE 4 GM/100 ML BAG IVPB ×2 (09:53→09:55)
[2020-11-14] MEDS: Potassium Chloride Liquid 20 MEQ PKT PO ×2 (09:55→16:23)
[2020-11-14] MEDS: Magnesium Gluconate 500 MG TAB PO ×2 (09:55→21:07)
--- NOTE | 2020-11-14 10:07 | PT.INNT ---
PT Notes Visit Reasons: SEPSIS,ANNALISA WITH HYPOKALEMIA,HYPOMAGNESEMIA,ANEMIA, I attempted to wake Alton and have him participate in PT. Pt was not easy to wake and I was not successful with getting pt to participate. I will try back tomorrow.
--- NOTE | 2020-11-14 10:10 | W.PM.PROGNOT ---
Date of Service Date of service: 11/14/20 Time of Service: 10:10 Assessment and Plan Assessment and plan (1) Aspiration pneumonia: Status: Acute Assessment and plan: unclear as to whether or not he aspirated prior to admission. no reports of aspiration since admission however when he first presented he had altered mental status, severely weak and was found down at home by his mother and found to have ANNALISA (Cr 1.36, BUN 22), severe hypokalemia (K+1.8) and hypomagnesemia (Mg++ 1.1). He remains afebrile but w/ persistent leukocytosis of 12,850 and CXR c/w LLL infiltrate. He is now hypoxemic. He was started on Rocephin 1 gm daily yesterday, however, I am changing this to Zosyn for coverage of anaerobes and better gram negative coverage as well as H. influenza and Strep given his COPD. I have added xopenex and iv corticosteroids to treat his acute bronchospasms. Qualifiers: Aspiration pneumonia type: unspecified Laterality: left Lung location: lower lobe of lung Qualified Code(s): J69.0 - Pneumonitis due to inhalation of food and vomit (2) Alcohol withdrawal: Status: Acute Assessment and plan: continue w/ thiamine, MVS, folic acid supplementation. start on programmed serax for his withdrawal (ideally should be on phenobarbital however, d/t patient already having received multiple doses of lorazepam, I will stick w/ programmed and symptomatic triggered benzodiazepines. hopefully w/ programmed Serax we can reduce the need for parenteral lorazepam, however, have to watch for oversedation. Ativan 2 mg seems to make him very lethargic Qualifiers: Complication of substance-induced condition: with delirium Qualified Code(s): F10.231 - Alcohol dependence with withdrawal delirium (3) Anemia due to acute blood loss: Status: Acute Assessment and plan: Likely due to recurrent upper GI bleeding in setting of h/o erosive esophagitis, ongoing alcohol abuse, and medication noncompliance. Coagulopathy is contributing. S/p 2 units pRBCs on this admission, but H/H now stabilized. Trial clear liquids. cont. carafate, change iv protonix to po protonix as long as he is able to adequately swallow pills which nursing says that he is doing ok with for now No plans for repeat EGD at this time as bleeding has apparently slowed/stopped. (4) Upper GI bleeding: Status: Acute Assessment and plan: As above S/p vitamin K and 2 units pRBCs. MOnitor in the ICU as we are trialing clears. (5) Ascites: Status: Acute Assessment and plan: patient received iv lasix yesterday but his urine output remains low, and he has had poor oral intake. I am resuming iv fluids at maintenance rate to prevent azotemia. He has ascites but I think that this is more a chronic issue from his chronic liver disease (6) Acute hypokalemia: Status: Acute Assessment and plan: not resolved. actually worse today from diuretics but he also has a chronic component d/t his malnutrition and alcoholism. I am replacing w/ parenteral and oral potassium and magnesium. (7) Hypomagnesemia: Status: Chronic Assessment and plan: as above (8) Bilateral pleural effusion: Status: Acute Assessment and plan: patient probably has pleural effusions d/t low albumin, generalized ascites; however, he also has consolidation in LLL. I have changed his CTRX to Zosyn. (9) Urinary tract infection symptoms: Status: Acute Assessment and plan: S/p walters. No evidence of a UTI on original UA, but given mental status changes (more lethargic), will repeat UA today. ?urinary retention. Will need a voiding trial on discontinuation of walters catheter. (10) Hepatic encephalopathy: Status: Resolved Assessment and plan: add lactulose to his regimen. Although his ammonia level yesterday was down, it was elevated on admission and ammonia levels do not have a good direct correlation to the degree of encephalopathy. (11) Coagulopathy: Status: Acute Assessment and plan: In setting of alcoholic hepatitis. No evidence of cirrhosis by ultrasound, though does have hepatic steatosis. INR remains at 1.4 after treatment w/ vit. K Monitor Maddrey scores. (12) COPD (chronic obstructive pulmonary disease): Status: Chronic Assessment and plan: acute exacerbation secondary to pneumonia. Will initiate aerosolized bronchodilators and iv corticosteroids. (13) DVT prophylaxis: Status: Acute Assessment and plan: TEDs/SCDs. Chemical DVT ppx is contraindicated in setting of active GI bleeding (14) Discharge planning issues: Status: Acute Assessment and plan: DNR/DNI - signed COLST form with palliative care. Continues to require ICU d/t encephalopathy and need for parenteral lorazepam for alcohol withdrawal symptoms Subjective Subjective Interval history since last seen: Patient still in acute alcohol withdrawal scores this morning of 10 on a CIWA scale. He was medicated with lorazepam 2 mg IV couple hours ago and is lethargic but opens his eyes spontaneously to his name responds verbally to me but cannot maintain focus. Nursing reports he is able to tolerate full liquids and some Jell-O. Patient not taking adequate nutrition or oral fluids. I will resume IV fluids since his urine output is dropped off. Acute kidney injury from admission has resolved. He still has a transaminitis secondary to alcoholic hepatitis. He remains hypokalemic and hypomagnesemic probably both acute and chronic. Chronically due to his malnutrition and continued alcoholism and acutely hypokalemic and hypomagnesemic due to recent diuretic therapy. He remains afebrile and not hypoxemic although he does have a left lower lobe consolidation on chest x-ray possibly due to aspiration from admission. There is been no reported choking spells or coughing spells with meals and no visible aspiration. Exam Narrative Exam Narrative: Elderly male lying in semifowler position about 30 degrees in bed in no acute respiratory distress. He is not using accessory respiratory muscles. He is lethargic but opens his eyes to his name but is not able to retain any attention and quickly become somnolent. Lungs with diffuse scattered expiratory wheezes and some bibasilar rales Heart regular but tachycardic without appreciable murmur rub or gallop. Abdomen is distended but soft with active bowel sounds and a positive fluid wave consistent with ascites. Lower extremities without peripheral edema or cyanosis. Neurologic exam remains nonfocal and moves all 4 extremities spontaneously. He opens his eyes to his name or tactile stimulation but does not maintain any attention and becomes somnolent Objective Last Vital Signs Temp 36.3 C L 11/14/20 08:15 Pulse 113 H 11/14/20 08:15 Resp 22 11/14/20 08:15 BP 104/79 11/14/20 08:15 Pulse Ox 94 11/14/20 08:15 Laboratory Results - last 24 hr 11/13/20 11/13/20 11/14/20 06:20 11:30 02:00 WBC RBC Hgb Hct MCV MCH MCHC RDW Plt Count MPV Immature Gran % Neutrophils % Lymphocytes % Monocytes % Eosinophils % Basophils % Nucleated RBC % Absolute Neutrophils Absolute Lymphocytes Absolute Monocytes Absolute Eosinophils Absolute Basophils PT 14.4 H INR 1.4 H Sodium Potassium Chloride Carbon Dioxide Anion Gap BUN Creatinine Estimated GFR/1.73 m2 Glucose Calcium Magnesium Total Bilirubin 3.8 H Conjugated Bilirubin 2.86 H AST 92 H ALT 27 Alkaline Phosphatase 49 Total Protein 5.1 L Albumin 1.8 L Urine Color [place] Urine Clarity Sl cloudy Urine pH 5.5 Ur Specific [place] >= 1.030 H Urine Protein Trace H Urine Ketones Negative Urine Blood Large H Urine Nitrite Negative Urine Bilirubin Small H Urine Urobilinogen 1.0 H Ur Leukocyte Esterase Negative Urine RBC >50 H Urine WBC 5-10 Ur Epithelial Cells Rare Urine Crystals Negative Urine Bacteria Negative Urine Casts 3-5 hyaline Urine Mucus Trace Ur Culture Indicated? Yes Urine Glucose Negative Hepatitis A IgM Ab Hep Bs Antigen Hep B Core Total Ab Hepatitis C Antibody 11/14/20 11/14/20 11/14/20 06:45 06:45 06:45 WBC RBC Hgb Hct MCV MCH MCHC RDW Plt Count MPV Immature Gran % Neutrophils % Lymphocytes % Monocytes % Eosinophils % Basophils % Nucleated RBC % Absolute Neutrophils Absolute Lymphocytes Absolute Monocytes Absolute Eosinophils Absolute Basophils PT 13.9 H INR 1.4 H Sodium Potassium Chloride Carbon Dioxide Anion Gap BUN Creatinine Estimated GFR/1.73 m2 Glucose Calcium Magnesium 1.4 L Total Bilirubin 3.8 H Conjugated Bilirubin 2.82 H AST 74 H ALT 25 Alkaline Phosphatase 59 Total Protein 5.5 L Albumin 1.9 L Urine Color Urine Clarity Urine pH Ur Specific [place] Urine Protein Urine Ketones Urine Blood Urine Nitrite Urine Bilirubin Urine Urobilinogen Ur Leukocyte Esterase Urine RBC Urine WBC Ur Epithelial Cells Urine Crystals Urine Bacteria Urine Casts Urine Mucus Ur Culture Indicated? Urine Glucose Hepatitis A IgM Ab Cancelled Hep Bs Antigen Cancelled Hep B Core Total Ab Cancelled Hepatitis C Antibody Cancelled 11/14/20 11/14/20 06:45 06:45 WBC 12.85 H RBC 3.56 L Hgb 10.9 L Hct 31.5 L MCV 88.5 MCH 30.6 MCHC 34.6 RDW 22.1 H Plt Count 168 MPV 10.4 Immature Gran % 0.3 Neutrophils % 75.0 Lymphocytes % 13.6 Monocytes % 10.1 Eosinophils % 0.6 Basophils % 0.4 Nucleated RBC % 0 Absolute Neutrophils 9.64 H Absolute Lymphocytes 1.75 Absolute Monocytes 1.30 H Absolute Eosinophils 0.08 Absolute Basophils 0.05 PT INR Sodium 142 Potassium 3.1 L Chloride 107 Carbon Dioxide 24.6 Anion Gap 10.4 BUN 4 L Creatinine 0.72 Estimated GFR/1.73 m2 >= 60.00 Glucose 115 H Calcium 7.1 L Magnesium Total Bilirubin Conjugated Bilirubin AST ALT Alkaline Phosphatase Total Protein Albumin Urine Color Urine Clarity Urine pH Ur Specific [place] Urine Protein Urine Ketones Urine Blood Urine Nitrite Urine Bilirubin Urine Urobilinogen Ur Leukocyte Esterase Urine RBC Urine WBC Ur Epithelial Cells Urine Crystals Urine Bacteria Urine Casts Urine Mucus Ur Culture Indicated? Urine Glucose Hepatitis A IgM Ab Hep Bs Antigen Hep B Core Total Ab Hepatitis C Antibody
[2020-11-14] MEDS: POTASSIUM CHLORIDE 20 MEQ/100 ML BAG 50 MEQ IVPB ×2 (10:24→12:48)
[2020-11-14] MEDS: PIPERACILLIN/TAZO 4.5 GM in Normal Saline 100 ML IVPB ×2 (10:39→17:45)
[2020-11-14 10:53] LABS: C-Reactive Protein 2.19 mg/dL (0.0-0.3)
[2020-11-14 11:16] LABS: Procalcitonin 0.2 ng/mL
[2020-11-14] MEDS: methylPREDNISolone SUCC 125 MG VIAL IVP (11:22)
[2020-11-14] MEDS: Levalbuterol 0.63 MG/3 ML UPD VIAL UPD ×2 (11:59→17:23)
[2020-11-14] MEDS: Oxazepam 10 MG CAP PO (12:22)
[2020-11-14] MEDS: Normal Saline 250 ML 500 ML IV (13:30)
[2020-11-14] MEDS: Normal Saline 500 ML IV (15:28)
[2020-11-14 19:00] LABS: Abs Immature Grans 0.02 10^3/uL (0.0-0.06); Absolute Basophil Count 0.01 10^3/uL (0.0-0.2); Absolute Lymphocyte Count 0.32 10^3/uL (1.2-3.4); Absolute Monocyte Count 0.14 10^3/uL (0.1-0.8); Basophils % 0.1; HCT 32.2 % (40.0-50.0); HGB 10.4 g/dL (13.5-17.5); Immature Grans % 0.2; Lymphocytes % 3.4; MCH 29.7 pg (27.0-33.0); MCHC 32.3 % (32.0-36.0); MPV 10.2 fL (8.0-11.0); Monocytes % 1.5; Neutrophils % 94.8; Nucleated RBC 0 %; Platelet Count 172 10^3/uL (130-400); RDW 22.5 % (11.8-14.1); RDW-SD 68.2 fL; WBC 9.39 10^3/uL (4.4-10.8)
[2020-11-14 19:16] LABS: Diff Comment RBC Morph Reviewed
[2020-11-14 19:17] LABS: ALT 27 U/L (16-63); AST 77 U/L (15-37); Albumin 1.9 g/dL (3.4-5.0); Alkaline Phosphatase 56 U/L (46-116); Anion Gap 7.4 mmol/L (3-11); BUN 4 mg/dL (7-18); Bilirubin, Total 3.3 mg/dL (0.2-1.0); CO2 24.6 mmol/L (21.0-32.0); CREATININE 0.84 mg/dL (0.70-1.30); Chloride 108 mmol/L (98-107); Glucose 161 mg/dL (74-106); Sodium 140 mmol/L (136-145); Total Protein 5.6 g/dL (6.4-8.2)
[2020-11-14 19:18] LABS: Anisocytosis 2+; NT-proBNP 571 pg/mL (<300)
[2020-11-14 19:19] LABS: Poikilocytes 1+; Polychromasia Present
[2020-11-14 19:21] LABS: Potassium 4.2 mmol/L (3.5-5.1)
[2020-11-14] MEDS: Pantoprazole 40 MG TABCR PO (21:00)
[2020-11-15] VITALS (30 sets, daily range): BP systolic 86–111; BP diastolic 56–81; PULSE 56–113; RESP 4–28; TEMP 36.3–36.9; O2SAT 92–100
[2020-11-15] MEDS: Levalbuterol 0.63 MG/3 ML UPD VIAL UPD ×5 (00:28→23:51)
[2020-11-15] MEDS: PIPERACILLIN/TAZO 4.5 GM in Normal Saline 100 ML IVPB ×3 (02:27→18:15)
[2020-11-15] MEDS: Normal Saline Flush 10 ML SYR IVP ×2 (02:28→08:31)
[2020-11-15] MEDS: Sucralfate 1 GM TAB PO ×4 (06:24→23:55)
[2020-11-15 07:12] LABS: Anion Gap 7.6 mmol/L (3-11); BUN 4 mg/dL (7-18); CO2 23.4 mmol/L (21.0-32.0); CREATININE 0.66 mg/dL (0.70-1.30); Calcium 6.9 mg/dL (8.5-10.1); Chloride 109 mmol/L (98-107); Glucose 147 mg/dL (74-106); Magnesium 1.7 mg/dL (1.8-2.4); Potassium 3.8 mmol/L (3.5-5.1); Sodium 140 mmol/L (136-145)
[2020-11-15 07:18] LABS: ALT 27 U/L (16-63); AST 66 U/L (15-37); Albumin 1.7 g/dL (3.4-5.0); Alkaline Phosphatase 51 U/L (46-116); Bilirubin, Direct 1.99 mg/dL (0.00-0.20); Bilirubin, Total 2.5 mg/dL (0.2-1.0); Total Protein 5.1 g/dL (6.4-8.2)
[2020-11-15] MEDS: Pantoprazole 40 MG TABCR PO ×2 (08:27→20:13)
[2020-11-15] MEDS: Potassium Chloride Liquid 20 MEQ PKT PO ×3 (08:27→20:13)
[2020-11-15] MEDS: Folic Acid 1 MG TAB PO (08:27)
[2020-11-15] MEDS: Lactulose 20 GM/30 ML CUP PO ×2 (08:27→20:12)
[2020-11-15] MEDS: Multivitamin TAB 1 TAB PO (08:27)
[2020-11-15] MEDS: Magnesium Gluconate 500 MG TAB PO ×2 (08:27→20:13)
[2020-11-15] MEDS: Tiotropium Bromide-Respimat 10 PUFF INH IH (08:28)
[2020-11-15] MEDS: predniSONE 20 MG TAB 40 MG PO (08:28)
[2020-11-15] MEDS: Thiamine 100 MG TAB PO (08:28)
[2020-11-15] MEDS: Normal Saline Flush 10 ML SYR 20 ML IVP ×2 (08:31→20:14)
--- NOTE | 2020-11-15 10:20 | PT.INTREAT ---
PT Notes Visit Reasons: SEPSIS,ANNALISA WITH HYPOKALEMIA,HYPOMAGNESEMIA,ANEMIA, Inpatient Physical Therapy Treatment Note [facility] Date: 11/15/20 PRECAUTIONS:Standard/Activity to tolerance SUBJECTIVE: Pt reports that it is harder to breath today. OBJECTIVE: Sit-supine: Pt refused to sit a the EOB GAIT THEREX: Pt completed supine UE and LE ther ex as per flow sheet. ASSESSMENT: Pt was much more alert and oriented today. Pt did fatigue very quickly. We will monitor pt's response and progress accordingly. PLAN: Cont as per PT POC. TREATMENT CODE/TIME: 9:35-9:53 (18) TP
--- NOTE | 2020-11-15 10:50 | W.PM.PROGNOT ---
Date of Service Date of service: 11/15/20 Time of Service: 10:50 Assessment and Plan Assessment and plan (1) Aspiration pneumonia: Status: Acute Assessment and plan: Day #2 Zosyn 4.5 g IV every 8 hours. Acapella and Mucinex added to his pulmonary toiletry. Increase mobilization. Liberalize his activity. Transfer out of ICU today. Begin physical therapy Qualifiers: Aspiration pneumonia type: unspecified Laterality: left Lung location: lower lobe of lung Qualified Code(s): J69.0 - Pneumonitis due to inhalation of food and vomit (2) Alcohol withdrawal: Status: Acute Assessment and plan: Very mild withdrawal. Continue with Serax 10 mg every 8 hours. Reduce lorazepam dose and use sparingly. I think following a RASS scale of 0 to -1 rather than CIWA scale would be a better way to monitor his withdrawal. Continue thiamine folic acid and multivitamin supplementation Qualifiers: Complication of substance-induced condition: with delirium Qualified Code(s): F10.231 - Alcohol dependence with withdrawal delirium (3) Anemia due to acute blood loss: Status: Acute Assessment and plan: Surgery has declined to repeat his EGD as it is unlikely to show anything different than his last EGD which she has alcoholic esophagitis and gastritis. Continue Carafate and Protonix. Continue to monitor H&H. Transfuse if his hemoglobin drops below 8 g. (4) Upper GI bleeding: Status: Acute Assessment and plan: As above. Advance diet (5) Ascites: Status: Acute Assessment and plan: Despite having pleural effusions and ascites patient needed the IV fluids as he was not taking adequate oral intake and yesterday. As his oral intake increases I will back off his IV fluids. I think he was intravascularly volume depleted. (6) Acute hypokalemia: Status: Acute Assessment and plan: Improving. Potassium yesterday was corrected up to a level 4.2. Repeat level this morning is 3.8. Continue oral supplementation. (7) Hypomagnesemia: Status: Chronic Assessment and plan: Repeat magnesium level this morning is 1.7. Continue oral supplementation. Recheck levels in the morning. (8) Bilateral pleural effusion: Status: Acute Assessment and plan: patient probably has pleural effusions d/t low albumin, generalized ascites; however, he also has consolidation in LLL. I have changed his CTRX to Zosyn. (9) Urinary tract infection symptoms: Status: Acute Assessment and plan: S/p walters. No evidence of a UTI on original UA, but given mental status changes (more lethargic), will repeat UA today. ?urinary retention. Will need a voiding trial on discontinuation of walters catheter. (10) Hepatic encephalopathy: Status: Resolved Assessment and plan: I intended to add lactulose to his regimen yesterday however he was too lethargic to take the lactulose. We will initiate that today. (11) Coagulopathy: Status: Acute Assessment and plan: In setting of alcoholic hepatitis. No evidence of cirrhosis by ultrasound, though does have hepatic steatosis. INR remains at 1.4 after treatment w/ vit. K (12) COPD (chronic obstructive pulmonary disease): Status: Chronic Assessment and plan: acute exacerbation secondary to pneumonia. Continue Zosyn as above. Patient was treated with IV Solu-Medrol yesterday. He will now start on prednisone and continue his Xopenex aerosol treatments. (13) DVT prophylaxis: Status: Acute Assessment and plan: TEDs/SCDs. Chemical DVT ppx is contraindicated in setting of active GI bleeding (14) Discharge planning issues: Status: Acute Assessment and plan: DNR/DNI - signed COLST form with palliative care. Patient no longer requires ICU care. I will transfer him to the medical/surgical floor. Subjective Subjective Interval history since last seen: Patient is much more alert and oriented today. He is able to keep his eyes open and communicate with me. He tolerated full liquid breakfast. We will advance his diet to solids today. His transaminitis is improving. 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 He remains on IV fluids of D5 LR with 20 M EQ's of potassium chloride per liter at a rate of 80 mL/h. As for his pneumonia this is day #2 of Zosyn 4.5 g IV every 8 hours. He is not requiring any supplemental oxygen. He does have a moist cough. He is on Xopenex updrafts. I have added Mucinex and Acapella treatments to his pulmonary regimen. I will add protein supplements to his diet to help improve his malnutrition and request a nutritional consult. As for his alcohol withdrawal he seems to be very calm and not requiring very much in the way of benzodiazepines. He is on Serax 10 mg every 8 hours. I think tomorrow we can taper him down. Present time I think he can be moved to the medical/surgical floor with continued telemetry monitoring. Exam Narrative Exam Narrative: Elderly male who appears to be disheveled. He is alert he is oriented to person and place. Lungs with moist rhonchi and expiratory wheezes bilaterally Heart regular rate and rhythm Abdomen is soft with ascitic fluid wave. Slight distention but nontender. Extremities without peripheral edema. He has generalized muscle wasting of his arms and legs. He has no tremors. Skin is warm and dry. Objective Last Vital Signs Temp 36.3 C L 11/15/20 08:58 Pulse 109 H 11/15/20 08:58 Resp 24 11/15/20 09:00 BP 111/81 11/15/20 08:58 Pulse Ox 95 11/15/20 08:58 Laboratory Results - last 24 hr 11/14/20 11/14/20 11/14/20 06:45 06:45 18:43 WBC RBC Hgb Hct MCV MCH MCHC RDW Plt Count MPV Immature Gran % Neutrophils % Lymphocytes % Monocytes % Eosinophils % Basophils % Nucleated RBC % Absolute Neutrophils Absolute Lymphocytes Absolute Monocytes Absolute Eosinophils Absolute Basophils RBC Morphology Polychromasia Poikilocytosis Anisocytosis Sodium 140 Potassium 4.2 D Chloride 108 H Carbon Dioxide 24.6 Anion Gap 7.4 BUN 4 L Creatinine 0.84 Estimated GFR/1.73 m2 >= 60.00 Glucose 161 H Calcium 7.0 L Magnesium Total Bilirubin 3.3 H Conjugated Bilirubin AST 77 H ALT 27 Alkaline Phosphatase 56 C-Reactive Protein 2.19 H NT-Pro-B Natriuret Pep Total Protein 5.6 L Albumin 1.9 L Procalcitonin 0.2 11/14/20 11/14/20 11/15/20 18:43 18:43 06:15 WBC 9.39 RBC 3.50 L Hgb 10.4 L Hct 32.2 L MCV 92.0 D MCH 29.7 MCHC 32.3 RDW 22.5 H Plt Count 172 MPV 10.2 Immature Gran % 0.2 Neutrophils % 94.8 Lymphocytes % 3.4 Monocytes % 1.5 Eosinophils % 0.0 Basophils % 0.1 Nucleated RBC % 0 Absolute Neutrophils 8.90 H Absolute Lymphocytes 0.32 L Absolute Monocytes 0.14 Absolute Eosinophils 0.00 Absolute Basophils 0.01 RBC Morphology See below Polychromasia Present Poikilocytosis 1+ Anisocytosis 2+ Sodium 140 Potassium 3.8 Chloride 109 H Carbon Dioxide 23.4 Anion Gap 7.6 BUN 4 L Creatinine 0.66 L Estimated GFR/1.73 m2 >= 60.00 Glucose 147 H Calcium 6.9 L Magnesium 1.7 L Total Bilirubin Conjugated Bilirubin AST ALT Alkaline Phosphatase C-Reactive Protein NT-Pro-B Natriuret Pep 571 H Total Protein Albumin Procalcitonin 11/15/20 06:15 WBC RBC Hgb Hct MCV MCH MCHC RDW Plt Count MPV Immature Gran % Neutrophils % Lymphocytes % Monocytes % Eosinophils % Basophils % Nucleated RBC % Absolute Neutrophils Absolute Lymphocytes Absolute Monocytes Absolute Eosinophils Absolute Basophils RBC Morphology Polychromasia Poikilocytosis Anisocytosis Sodium Potassium Chloride Carbon Dioxide Anion Gap BUN Creatinine Estimated GFR/1.73 m2 Glucose Calcium Magnesium Total Bilirubin 2.5 H Conjugated Bilirubin 1.99 H AST 66 H ALT 27 Alkaline Phosphatase 51 C-Reactive Protein NT-Pro-B Natriuret Pep Total Protein 5.1 L Albumin 1.7 L Procalcitonin
[2020-11-15] MEDS: Oxazepam 10 MG CAP PO ×2 (11:30→20:13)
[2020-11-15] MEDS: guaiFENesin 600 MG TABCR PO ×2 (11:30→20:16)
[2020-11-15] MEDS: Protein Nutritional Supplement 16 GM 1 OUNCE PACKET PO ×2 (13:37→20:12)
--- NOTE | 2020-11-15 18:31 | PDOC.CMPRO ---
- If Service Date Differs Date of service: 11/15/20 Time of Service: 18:31 Care Management Progress Note S/O: Alton continues to improve and is moved out of ICU to the Med/Surg floor today. A review of his medical chart reveals his diet is being advanced to solids. Alton is on day 2 of IV Zosyn abx. He remains on telemetry monitoring and on CIWA protocol. CM will continue to follow. A: Alton is a 60 year old man admitted to [facility] on 11/11/20 with sepsis, anemia and hypokalemia and hypomagnesemia. P: No change in plan. Alton continues to meet inpatient level of care. His disposition is not clear at this time. He has not been doing well at home and may need rehab when medically cleared. He, however, expressed his wish to return home during a palliative consultation. CM will continue to support Alton and his family and assess for discharge planning needs.
[2020-11-16] VITALS (9 sets, daily range): BP systolic 92–109; BP diastolic 61–80; PULSE 86–104; RESP 1–32; TEMP 36.3–37; O2SAT 93–98
--- NOTE | 2020-11-16 | DI.CT_ITS ---
EXAM: CT ABDOMEN PELVIS WO CLINICAL HISTORY: Ileus versus SBO. TECHNIQUE: Imaging Protocol: Axial computed tomography images with coronal and sagittal reformatted images were created and reviewed CONTRAST MATERIAL: Intravenous: none Oral: None COMPARISON: CT CT CHEST/ABD/PEL W from 05/15/2020 FINDINGS: VISUALIZED LUNG BASES: Significant deterioration. There are now moderate sized bilateral pleural eff usions which were not previously present and there is significant volume loss in the basal segments o f both lower lobes.. ABDOMEN: Significant deterioration. There is now abundant ascites in the abdomen and pelvis. LIVER: Liver is diffusely hypodense implying steatosis and exhibits somewhat cirrhotic appearance reva pite non enlarged caudate lobe. GALLBLADDER/BILIARY: No obvious gallbladder pathology. CBD is not dilated. PANCREAS: No evidence of pancreatic mass nor dilatation of the pancreatic duct. SPLEEN: Spleen is not enlarged. No obvious intrasplenic lesions. ADRENALS: There are no significant adrenal masses. KIDNEYS:No cysts evident. No solid renal masses. No calculi nor hydronephrosis. . ABDOMINAL AORTA: Abdominal aorta is not enlarged and there is no [id number] adenopat hy. ABDOMINAL WALL/GI: No evidence of significant anterior abdominal wall hernia. In the upper left pelv is there is a 3.1 by 3.4 centimeter area of small bowel loop which exhibits what might be an element of intussusception small bowel loops proximal and distal to this contain oral contrast but appears sl ightly edematous although this may be related to the generalized ascites. PELVIS: LYMPH NODES: There is no intrapelvic nor inguinal adenopathy. GI: No evidence of appendicitis.There is sigmoid diverticulosis. No obvious acute diverticulitis. URINARY BLADDER: Bladder is collapsed around the Palacios catheter. REPRODUCTIVE: Prostate is small OSSEOUS: No lytic osseous lesions. There is expansion the sacral spinal canal by what appears to be a n intra sacral meningocele. This is unchanged from the prior study. IMPRESSION: 1. Significant deterioration when compared to the prior study of May 2020. There are now significant pleural effusions and volume loss in both lung bases, not previously present. In addition, there is abundant ascites in the abdomen pelvis which was not previously present. 2. Liver is diffusely hypodense implying severe steatosis. Also appear somewhat cirrhotic in appearan ce. 3. In left side of the pelvis 1 of the small bowel loops exhibits what appears to be an element of in tussusception. There is no obvious bowel obstruction at this level although some of the small bowel l oops just proximal and distal to this appears slightly edematous. This, however, may be related to th e ascites evident. 4. Palacios catheter in the urinary bladder noted. 5. Sigmoid diverticulosis. No obvious acute diverticulitis. 6. Intra sacral meningocele again noted. Is associated with expansion of the sacral canal but no lyti c osseous lesion identified. There is no extension into the presacral tissues. RADIATION DOSE DELIVERED: 827.07mGy.cm Total DLP DATA REPOSITORY: All CT scans at this facility are submitted to the National Radiology Data Registry (NRDR) Dose Index Registry (DIR) with the [employer] (ACR). RADIATION OPTIMIZATION: All CT scans at this facility use at least one of these dose optimization te chniques: automated exposure control; mA and/or kV adjustment per patient size (includes targeted exa ms where dose is matched to clinical indication); or iterative reconstruction.
--- NOTE | 2020-11-16 | DI.RAD_ITS ---
EXAM: XR ABDOMEN FLAT UPRIGHT CLINICAL HISTORY: abdominal pain. TECHNIQUE: 2D digital imaging was performed. COMPARISON: No exams were available for comparison FINDINGS: Supine and decubitus views of the abdomen performed. There is no free air evident. There is gesture of a small-bowel obstruction pattern although this is most probably incomplete given that there does appear to be some air in the transverse colon. There is no free air. There is infiltrate in the left lower lobe behind the heart noted. IMPRESSION: Ileus versus incomplete small bowel obstruction. No free air. Left lower lobe infiltrate. DATA REPOSITORY: RADIATION DOSE DELIVERED:
[2020-11-16] MEDS: PIPERACILLIN/TAZO 4.5 GM in Normal Saline 100 ML IVPB ×3 (02:13→17:53)
[2020-11-16] MEDS: LORazepam 1 MG TAB PO/SL (02:25)
[2020-11-16] MEDS: Oxazepam 10 MG CAP PO ×3 (05:01→20:39)
[2020-11-16] MEDS: Levalbuterol 0.63 MG/3 ML UPD VIAL UPD ×2 (05:02→11:35)
[2020-11-16] MEDS: Sucralfate 1 GM TAB PO ×3 (05:02→17:53)
[2020-11-16 07:15] LABS: Abs Immature Grans 0.07 10^3/uL (0.0-0.06); Absolute Lymphocyte Count 1.63 10^3/uL (1.2-3.4); Basophils % 0.1; Eosinophils % 0.1; HCT 31.7 % (40.0-50.0); HGB 10.3 g/dL (13.5-17.5); Immature Grans % 0.5; Lymphocytes % 10.5; MCH 30.4 pg (27.0-33.0); MCHC 32.5 % (32.0-36.0); MCV 93.5 fL (80-95); Monocytes % 10.2; Neutrophils % 78.6; Nucleated RBC 0 %; Platelet Count 183 10^3/uL (130-400); RBC 3.39 10^6/uL (4.36-5.78); RDW 23.4 % (11.8-14.1); RDW-SD 75.4 fL; WBC 15.54 10^3/uL (4.4-10.8)
[2020-11-16 07:16] LABS: Absolute Basophil Count 0.02 10^3/uL (0.0-0.2); Absolute Eosinophil Count 0.02 10^3/uL (0.0-0.7); Absolute Monocyte Count 1.59 10^3/uL (0.1-0.8); Absolute Neutrophil Count 12.21 10^3/uL (1.2-6.7)
[2020-11-16 07:38] LABS: Anisocytosis 3+; Diff Comment Agrees w/ Instrument; Macrocytosis 1+; Microcytosis 1+; Poikilocytes 1+; Polychromasia Present; Target Cells 2+
[2020-11-16 07:40] LABS: ALT 34 U/L (16-63); AST 101 U/L (15-37); Albumin 1.7 g/dL (3.4-5.0); Alkaline Phosphatase 53 U/L (46-116); BUN 6 mg/dL (7-18); Bilirubin, Total 2.3 mg/dL (0.2-1.0); CREATININE 0.64 mg/dL (0.70-1.30); Calcium 7.2 mg/dL (8.5-10.1); Chloride 108 mmol/L (98-107); Glucose 97 mg/dL (74-106); Magnesium 1.3 mg/dL (1.8-2.4); Potassium 4.4 mmol/L (3.5-5.1); Sodium 139 mmol/L (136-145); Total Protein 5.3 g/dL (6.4-8.2)
[2020-11-16] MEDS: Normal Saline Flush 10 ML SYR 20 ML IVP ×2 (07:57→20:40)
[2020-11-16] MEDS: Lactulose 20 GM/30 ML CUP PO (07:57)
[2020-11-16] MEDS: Magnesium Gluconate 500 MG TAB PO ×2 (07:58→20:39)
[2020-11-16] MEDS: guaiFENesin 600 MG TABCR PO ×2 (07:58→20:39)
[2020-11-16] MEDS: Folic Acid 1 MG TAB PO (07:58)
[2020-11-16] MEDS: Thiamine 100 MG TAB PO (07:59)
[2020-11-16] MEDS: Pantoprazole 40 MG TABCR PO ×2 (07:59→20:39)
[2020-11-16] MEDS: predniSONE 20 MG TAB 40 MG PO (07:59)
[2020-11-16] MEDS: Multivitamin TAB 1 TAB PO (07:59)
[2020-11-16] MEDS: Tiotropium Bromide-Respimat 10 PUFF INH IH (09:15)
[2020-11-16] MEDS: MAGNESIUM SULFATE 4 GM/100 ML BAG IVPB (09:18)
--- NOTE | 2020-11-16 09:19 | PDOC.CMPRO ---
- If Service Date Differs Date of service: 11/16/20 Time of Service: 09:19 Care Management Progress Note S/O: Alton was sitting up in a chair when CM met with him. He was pleasant and agreeable to conversation. Alton verbalized that he is not sure where he will go when he is ready for discharge. He has stated to CM that he really wants to go home. He has lived in his mobile home in [place] for 30 years and feels comfortable there. Alton did have a palliative consult on 11/12/20 and changed his code status to DNR/DNI. Per palliative note, Alton has determined that he wants very little in the way of interventions. He will accept IVF and AB but does not want to be transferred to tertiary care. alton continues to work with PT with a goal of regaining strength and function. A: Alton is a 60 year old man admitted to [facility] on 11/11/20 with sepsis, anemia and hypokalemia and hypomagnesemia. P: Alton continues to meet inpatient level of care. His disposition is not clear at this time. He has not been doing well at home and may need rehab when medically cleared. He, however, expressed his wish to return home. CM will continue to support Alton and his family and assess for discharge planning needs.
--- NOTE | 2020-11-16 10:00 | PT.INTREAT ---
Date of service: 11/16/20 Time of Service: 08:55 PT Notes Visit Reasons: SEPSIS,ANNALISA WITH HYPOKALEMIA,HYPOMAGNESEMIA,ANEMIA, Inpatient Physical Therapy Treatment Note [facility] Date: 11/16/2020 PRECAUTIONS: Fall SUBJECTIVE: Alton reports that he is not feeling well today, that he has an upset stomach. He is pleasant and agreeable to participating in PT. OBJECTIVE: PAIN: No c/o pain BED MOBILITY/TRANSFERS Supine-sit: Mod A with HOB at 40 degrees Sit-supine: Min A with HOB flat Sit-stand: Min A x2 with STEDY in a.m.; CGA in p.m. Stand-sit: CGA with STEDY in a.m.; CGA in p.m. Bed-Chair: SBA with STEDY Chair-bed: Min A GAIT: Not assessed in a.m. Assistive Device: FWW Weight bearing: Full Assist: Min A + CGA Distance: 5' + 10 steps Deviation: Min A for FWW mechanics, slow pace, short/shuffling steps THEREX: Patient was instructed in a LE strengthening program in a seated position, as per flow sheet. He required seated rest between exercises due to SOB with activity. Static standing in STEDY with B UE support 2 x 1 minute. TOILETING: Patient was incontinent of stool, requiring Max A ASSESSMENT: Patient tolerated session with c/o increased SOB with activity. He was able to tolerate static standing in STEDY 2 x 1 minute with SBA. In the afternoon he was able to progress to 10 steps with FWW requiring only Min A for FWW management. He demonstrates significant global weakness and would benefit from continued global strengthening and gait and transfer training. PLAN: Continue with global strengthening and gait and transfer training for continued progression toward baseline level of function. TREATMENT CODE/TIME: Session 1: 35 minutes; [id number], [id number] Session 2: 25 minutes; [id number] x2
--- NOTE | 2020-11-16 11:04 | PGE_ITS ---
Date of Service Date of service: 11/16/20 Time of Service: 11:04 Assessment and Plan Assessment and plan (1) Abdominal pain: Status: Acute Assessment and plan: Rule out partial SBO versus abdominal pain from ascites. Abdominal KUB and upright x-rays been ordered. Surgical consult has been requested. Qualifiers: Abdominal location: generalized Qualified Code(s): R10.84 - Generalized abdominal pain (2) Aspiration pneumonia: Status: Acute Assessment and plan: Day #3 Zosyn 4.5 g IV every 8 hours. Acapella and Mucinex added to his pulmonary toiletry. Increase mobilization. Liberalize his activity. Continue physical therapy. Of note his white count went up today to 15,000 but I think this is secondary to his steroids. He is remained afebrile a nd his oxygen needs have not increased. Qualifiers: Aspiration pneumonia type: unspecified Laterality: left Lung location: lower lobe of lung Qualified Code(s): J69.0 - Pneumonitis due to inhalation of food and vomit (3) Alcohol withdrawal: Status: Acute Assessment and plan: Very mild alcohol withdrawal. He will continue his taper of oxazepam. He is currently on 10 mg every 8 hours which will finish up tonight. Starting tomorrow morning I will put him on 10 mg twice daily for 48 hours after which I think he can discontinue further benzodiazepines. Continue with current thiamine and folic acid and multivitamin supplementation. Qualifiers: Complication of substance-induced condition: with delirium Qualified Code(s): F10.231 - Alcohol dependence with withdrawal delirium (4) Anemia due to acute blood loss: Status: Acute Assessment and plan: Surgery has declined to repeat his EGD as it is unl ikely to show anything different than his last EGD which he has alcoholic esophagitis and gastritis. Continue Carafate and Protonix. Continue to monitor H&H. Transfuse if his hemoglobin drops below 8 g. (5) Upper GI bleeding: Status: Acute Assessment and plan: As above. Advance diet (6) Ascites: Status: Acute Assessment and plan: Surgical consult is been requested to evaluate the need for paracentesis. (7) Acute hypokalemia: Status: Acute Assessment and plan: Potassium has been replaced orally. Potassium is up to 4.4. I have reduced his supplementation to 20 mg once a day. (8) Hypomagnesemia: Status: Chronic Assessment and plan: Magnesium is dropped down to 1.3 this morning. This is in spite of oral supplementation. He will get a bolus of magnesium sulfate 4 g IV today. Continue magnesium supplementation twice a day. (9) Bilateral pleural effusion: Status: Acute Assessment and plan: patient probably has pleural effusions d/t low albumin, generalized ascites; however, he also has consolidation in LLL. (10) Urinary tract infection symptoms: Status: Acute Assessment and plan: Patient still has a Palacios in place. In light of his abdominal distention and we will leave the Palacios in place until surgery is evaluated his abdominal pain. If there is a partial bowel obstruction he will probably need the Palacios in for another couple of days. (11) Hepatic encephalopathy: Status: Resolved Assessment and plan: Mental status continues to improve. Patient remain on thiamine and folic acid and multivitamin as well as lactulose. (12) Coagulopathy: Status: Acute Assessment and plan: In setting of alcoholic hepatitis. No evidence of cirrhosis by ultrasound, though does have hepatic steatosis. INR remains at 1.4 after treatment w/ vit. K (13) COPD (chronic obstructive pulmonary disease): Status: Chronic Assessment and plan: acute exacerbation secondary to pneumonia. Continue Zosyn, Xopenex aerosol treatments, prednisone (14) DVT prophylaxis: Status: Acute Assessment and plan: TEDs/SCDs. Chemical DVT ppx is contraindicated in setting of active GI bleeding (15) Discharge planning issues: Status: Acute Assessment and plan: DNR/DNI - signed COLST form with palliative care. Patient no longer requires ICU care. I will transfer him to the medical/surgical floor. Subjective Subjective Interval history since last seen: and he has been on room air with oxygen saturationsMr. Paro complains of abdominal pain and nausea but no vomiting. He has not had a bowel movement since November 13. However since I saw him this morning he has now had small liquid brown bowel movement. Patient is being treated for acute alcohol withdrawal and aspiration pneumonia as well as alcoholic hepatitis and electrolyte disturbances. From an alcohol withdrawal standpoint he is doing very well. His CIWA scores remain relatively low between 0 and 5. He did require dose of lorazepam 1 mg last night. He is currently scoring a 1. He remains on scheduled doses of Serax at 10 mg every 8 hours. He has been put on lactulose for his hyperammonemia and cirrhosis. For his aspiration pneumonia he is on aerosol treatments and IV Zosyn and he was also put on prednisone to help with his bronchospasm. He has not short of breath he remains on room air with oxygen saturations in the mid to high 90s. He is having a bit more abdominal distention from his ascites. Have consulted with general surgeon, Dr. Velazquez, to consider paracentesis for his ascites. Exam Narrative Exam Narrative: Middle-age male who appears to be much older than his stated age of 60. He sitting up in a chair working with physical therapy and respiratory therapy. He is in no respiratory distress but is in discomfort secondary to his abdominal distention. When asked where it hurts he points to his lower abdomen below the umbilicus. Lungs with some scattered expiratory wheezes and basilar rhonchi. Heart regular rhythm but slightly tachycardic. Abdomen is distended with positive ascitic fluid wave, present bowel sounds, diffuse tenderness but without rebound or guarding. Extremities without peripheral edema Objective Last Vital Signs Temp 36.6 C 11/16/20 07:52 Pulse 100 H 11/16/20 07:52 Resp 22 11/16/20 07:52 BP 103/71 11/16/20 07:52 Pulse Ox 96 11/16/20 07:52 Laboratory Results - last 24 hr 11/16/20 11/16/20 06:50 06:50 WBC 15.54 H RBC 3.39 L Hgb 10.3 L Hct 31.7 L MCV 93.5 MCH 30.4 MCHC 32.5 RDW 23.4 H Plt Count 183 MPV 10.0 Immature Gran % 0.5 Neutrophils % 78.6 Lymphocytes % 10.5 Monocytes % 10.2 Eosinophils % 0.1 Basophils % 0.1 Nucleated RBC % 0 Absolute Neutrophils 12.21 H Absolute Lymphocytes 1.63 Absolute Monocytes 1.59 H Absolute Eosinophils 0.02 Absolute Basophils 0.02 RBC Morphology See below Polychromasia Present Poikilocytosis 1+ Anisocytosis 3+ Microcytosis 1+ Macrocytosis 1+ Sodium 139 Potassium 4.4 Chloride 108 H Carbon Dioxide 25.0 Anion Gap 6.0 BUN 6 L Creatinine 0.64 L Estimated GFR/1.73 m2 >= 60.00 Glucose 97 D Calcium 7.2 L Magnesium 1.3 L Total Bilirubin 2.3 H AST 101 H ALT 34 Alkaline Phosphatase 53 Total Protein 5.3 L Albumin 1.7 L
[2020-11-16 11:26] LABS: Hep A Total Ab w Rflx IgM Positive (Negative)
[2020-11-16 12:27] LABS: Hep A Antibody IgM Negative (Negative)
[2020-11-16 12:44] LABS: HBs Antibody, Qual Negative (See Note); HBs Antibody, Quant <3.1 mIU/mL (See Note); Hepatitis B Core Antibody Negative (Negative); Hepatitis B surface Ag Negative (Negative); Hepatitis C Ab w Rflx HCV PCR Negative (Negative)
[2020-11-16] MEDS: Omnipaque 350 MG/ML 50 ML BTL PO (12:50)
[2020-11-16] MEDS: Protein Nutritional Supplement 16 GM 1 OUNCE PACKET PO (13:14)
[2020-11-16] MEDS: Normal Saline Flush 10 ML SYR IVP ×2 (13:15→17:54)
--- NOTE | 2020-11-16 14:57 | W.NUTRFU ---
Date of service: 11/16/20 Time of Service: 14:57 Nutritional Follow up NOTE: Full Nutrition Consult completed 11/13/20. Received nutrition consult for MNT for malnutrition, currently with Etoh withdrawl, ascites and apsiration PNA. Alton presents with moderate malnutrition with long hx of excessive alcohol use, with upper GI bleed and erosive gastritis. Medical chart indicates 8 lbs weight gain in last 8 months however, Alton appear malnourished with muscle wasting and loss of subq fat. Diet has been advanced to Low Sodium. Po intake approximatley 50% of meals, diet supplemented with ensure clear TID. Will meet 100% of nutrient needs if completes 50% of meals and > 75% of ensure clears. Met with Alton today to discuss nutrient needs, however, he was unable to engage, appeared confused. Will continue to follow and encourage po intake. Time Spent in Nutritional Counseling and Treatment: 15min
[2020-11-17] VITALS (15 sets, daily range): BP systolic 90–110; BP diastolic 55–71; PULSE 73–122; RESP 5–32; TEMP 36.6–37.2; O2SAT 92–99
[2020-11-17] MEDS: Levalbuterol 0.63 MG/3 ML UPD VIAL UPD ×4 (01:04→17:37)
[2020-11-17] MEDS: Sucralfate 1 GM TAB PO ×4 (01:04→18:19)
[2020-11-17] MEDS: PIPERACILLIN/TAZO 4.5 GM in Normal Saline 100 ML IVPB ×2 (01:05→10:42)
[2020-11-17] MEDS: Tiotropium Bromide-Respimat 10 PUFF INH IH (07:48)
[2020-11-17 08:05] LABS: MCH 31.2 pg (27.0-33.0); MCHC 33.3 % (32.0-36.0); MCV 93.5 fL (80-95); MPV 10.4 fL (8.0-11.0); Platelet Count 171 10^3/uL (130-400); RBC 3.21 10^6/uL (4.36-5.78); RDW 23.5 % (11.8-14.1); RDW-SD 76.3 fL; WBC 12.55 10^3/uL (4.4-10.8)
[2020-11-17] MEDS: Magnesium Gluconate 500 MG TAB PO (08:14)
[2020-11-17] MEDS: Normal Saline Flush 10 ML SYR IVP ×3 (08:14→18:19)
[2020-11-17] MEDS: Normal Saline Flush 10 ML SYR 20 ML IVP (08:14)
[2020-11-17] MEDS: predniSONE 20 MG TAB 40 MG PO (08:15)
[2020-11-17] MEDS: Pantoprazole 40 MG TABCR PO ×2 (08:15→20:07)
[2020-11-17] MEDS: guaiFENesin 600 MG TABCR PO ×2 (08:15→20:09)
[2020-11-17] MEDS: Multivitamin TAB 1 TAB PO (08:15)
[2020-11-17] MEDS: Thiamine 100 MG TAB PO (08:15)
[2020-11-17] MEDS: Folic Acid 1 MG TAB PO (08:15)
[2020-11-17] MEDS: Protein Nutritional Supplement 16 GM 1 OUNCE PACKET PO (08:16)
[2020-11-17] MEDS: Potassium Chloride Liquid 20 MEQ PKT PO (08:16)
[2020-11-17] MEDS: Lactulose 20 GM/30 ML CUP PO (08:16)
[2020-11-17 09:20] LABS: ALT 44 U/L (16-63); AST 127 U/L (15-37); Albumin 1.7 g/dL (3.4-5.0); Alkaline Phosphatase 62 U/L (46-116); Anion Gap 8.3 mmol/L (3-11); BUN 7 mg/dL (7-18); Bilirubin, Total 1.9 mg/dL (0.2-1.0); CO2 24.7 mmol/L (21.0-32.0); CREATININE 0.72 mg/dL (0.70-1.30); Calcium 7.3 mg/dL (8.5-10.1); Chloride 107 mmol/L (98-107); Glucose 111 mg/dL (74-106); Magnesium 1.5 mg/dL (1.8-2.4); Potassium 3.6 mmol/L (3.5-5.1); Sodium 140 mmol/L (136-145); Total Protein 5.5 g/dL (6.4-8.2)
--- NOTE | 2020-11-17 09:48 | PT.INTREAT ---
Date of service: 11/17/20 Time of Service: 09:20 PT Notes Visit Reasons: LEUCOCYTOSIS, ANNALISA, HYPOKALEMIA, HYPOMAGNESEMIA, AN Inpatient Physical Therapy Treatment Note [facility] Date: 11/17/2020 PRECAUTIONS: Fall SUBJECTIVE: Alton states that he is feeling much better today, that he was able to eat breakfast this morning, although he continues to feel very tired, and has not been getting good rest at night. OBJECTIVE: PAIN: Patient c/o B LE pain with gait training BED MOBILITY/TRANSFERS Supine-sit: Mod A with HOB at 20 degrees in a.m.; min a with HOB at 30 degrees in p.m. Sit-supine: CGA with HOB flat in a.m.; min a with HOB flat in p.m. Sit-stand: CGA Stand-sit: CGA Chair-bed: CGA GAIT Assistive Device: FWW Weight bearing: Full Assist: CGA in a.m.; SBA in p.m. Distance: 60' in a.m.; 110' +10' in p.m. Deviation: Wc follow, my legs feel like rubber, c/o B LE pain, increased SOB, stand rest x1 VITALS: SaO2: 93% on RA following gait training and ther ex; afternoon session performed in conjunction with respiratory therapy, please see their note for specific vital sign details THEREX: Patient was instructed in a LE strengthening program, in a seated position, as per flow sheet. He continues to demonstrate global weakness. TOILETING: Patient was incontinent stool x2 requiring Max A. ASSESSMENT: Patient tolerated session with complaint of increased SOB and B LE pain with activity. He was able to tolerate a significant progression in gait distance with FWW support and SBA. Patient would benefit from continued global strengthening and gait and transfer training for improved mobility and progression toward baseline level of function. PLAN: Continue with global strengthening and gait and transfer training. TREATMENT CODE/TIME: Session 1: 25 minutes; [id number], [id number] Session 2: 30 minutes; [id number], [id number]
--- NOTE | 2020-11-17 12:32 | W.PM.PROGNOT ---
Date of Service Date of service: 11/17/20 Time of Service: 12:33 Assessment and Plan Assessment and plan (1) Aspiration pneumonia: Status: Acute Assessment and plan: Day #4 of 5 Zosyn 4.5 g IV every 8 hours. Acapella and Mucinex added to his pulmonary toiletry. Increase mobilization. Liberalize his activity. Continue physical therapy. Continue prednisone. Will recheck PCXR prior to discharge. Qualifiers: Aspiration pneumonia type: unspecified Laterality: left Lung location: lower lobe of lung Qualified Code(s): J69.0 - Pneumonitis due to inhalation of food and vomit (2) Alcohol withdrawal: Status: Resolved Assessment and plan: Serax dc. Will dc his ativan. Qualifiers: Complication of substance-induced condition: with delirium Qualified Code(s): F10.231 - Alcohol dependence with withdrawal delirium (3) Anemia due to acute blood loss: Status: Acute Assessment and plan: stable H&H at 10 gm/ 30%. cont. protonix and carafate. (4) Upper GI bleeding: Status: Acute Assessment and plan: As above. (5) Ascites: Status: Acute Assessment and plan: Dr. Mackay felt that his ascites was not enough to warrant paracentesis. (6) Acute hypokalemia: Status: Acute Assessment and plan: Potassium has been corrected although his level is down to 3.6 this a.m. As I am going to start him on spironolactone, I will keep his potassium supplementation to once a day but repeat his BMP to monitor his renal function and electrolytes. (7) Hypomagnesemia: Status: Chronic Assessment and plan: magnesium is improving although still low at 1.5. I will increase his oral supplementation to 1000 mg bid. (8) Bilateral pleural effusion: Status: Acute Assessment and plan: patient probably has pleural effusions d/t low albumin, generalized ascites; however, he also has consolidation in LLL. (9) Urinary tract infection symptoms: Status: Acute Assessment and plan: I would like to remove his walters, however, his nurse is concerned that if we are going to put him back on diuretics then he is too weak to get up and down frequently to void. I will leave this walters in for one more day (10) Hepatic encephalopathy: Status: Resolved Assessment and plan: Mental status continues to improve. Patient remain on thiamine and folic acid and multivitamin as well as lactulose. (11) Coagulopathy: Status: Acute Assessment and plan: In setting of alcoholic hepatitis. No evidence of cirrhosis by ultrasound, though does have hepatic steatosis. INR remains at 1.4 after treatment w/ vit. K (12) COPD (chronic obstructive pulmonary disease): Status: Chronic Assessment and plan: acute exacerbation secondary to pneumonia. Continue Zosyn, Xopenex aerosol treatments, prednisone (13) DVT prophylaxis: Status: Acute Assessment and plan: TEDs/SCDs. Chemical DVT ppx is contraindicated in setting of active GI bleeding (14) Discharge planning issues: Status: Acute Assessment and plan: DNR/DNI - signed COLST form with palliative care. Patient needs SNF however, I am not sure that he will agree to this. Subjective Subjective Interval history since last seen: Overall Alton feels tired. He had a good breakfast but lunch he just ate a few bites. He did not want a get up for physical therapy this morning. His blood pressures have been a bit soft running in the low 90s systolic with a diastolic in the low 60s. Patient needs to go back on a diuretic for his ascites and pleural effusion however his blood pressure may limit the ability to tolerate diuretics. Still has a Walters catheter in place. With respect to alcohol withdrawal he is really not scoring significantly on his CIWA scores. His levels are 1-2. He is now off any oxazepam. I will discontinue lorazepam. With respect to his aspiration pneumonia he remains on Zosyn at 4.5 g IV every 8 hours, this is day #4/5. He is not requiring any supplemental oxygen. Oxygen saturation is 97% on room air. His leukocyte count is down to 12,500. I anticipate he is going to need senior care facility for short-term rehab stay however if he continues to decline inpatient PT he will not qualify for SNF. Exam Narrative Exam Narrative: Middle-age male who is sitting up in bed picking at his lunch. He seems to be alert and oriented Lungs with diffusely diminished breath sounds no rhonchi or rails or wheezes Heart regular rate and rhythm. Abdomen is distended soft with minimal tenderness to palpation. Lower extremities without peripheral edema Objective Last Vital Signs Temp 37.2 C 11/17/20 11:55 Pulse 89 11/17/20 12:03 Resp 16 11/17/20 12:03 BP 92/63 L 11/17/20 11:55 Pulse Ox 97 11/17/20 12:03 Laboratory Results - last 24 hr 11/14/20 11/17/20 11/17/20 06:45 07:54 07:54 WBC 12.55 H RBC 3.21 L Hgb 10.0 L Hct 30.0 L MCV 93.5 MCH 31.2 MCHC 33.3 RDW 23.5 H Plt Count 171 MPV 10.4 Sodium Cancelled Potassium Cancelled Chloride Cancelled Carbon Dioxide Cancelled Anion Gap Cancelled BUN Cancelled Creatinine Cancelled Estimated GFR/1.73 m2 Cancelled Glucose Cancelled Calcium Cancelled Magnesium Cancelled Total Bilirubin Cancelled AST Cancelled ALT Cancelled Alkaline Phosphatase Cancelled Total Protein Cancelled Albumin Cancelled Hepatitis A IgM Ab Negative Hep Bs Antigen Negative Hep Bs Antibody Negative Hep Bs Antibody, Quant <3.1 Hep B Core Total Ab Negative Hepatitis C Antibody Negative 11/17/20 09:00 WBC RBC Hgb Hct MCV MCH MCHC RDW Plt Count MPV Sodium 140 Potassium 3.6 Chloride 107 Carbon Dioxide 24.7 Anion Gap 8.3 BUN 7 Creatinine 0.72 Estimated GFR/1.73 m2 >= 60.00 Glucose 111 H Calcium 7.3 L Magnesium 1.5 L Total Bilirubin 1.9 H AST 127 H ALT 44 Alkaline Phosphatase 62 Total Protein 5.5 L Albumin 1.7 L Hepatitis A IgM Ab Hep Bs Antigen Hep Bs Antibody Hep Bs Antibody, Quant Hep B Core Total Ab Hepatitis C Antibody
[2020-11-17] MEDS: Spironolactone 25 MG TAB PO (14:02)
--- NOTE | 2020-11-17 15:32 | CHAPLAIN ---
Alton is an alcoholic with no interest in stopping drinking (according to Palliative Care consult) with frequent GI bleeds. He has asked for minimal interventions and does not want to go to a larger hospital and would prefer to stay at home if possible. Today he asked me for some candy, specifically a [employer] candy bar, which I couldn't find in our gift shop, so I brought him some candy bars. I left when his health careers instructor arrived, but I will continue to visit.
[2020-11-17] MEDS: PIPERACILLIN/TAZO 4.5 GM in Normal Saline 100 ML 4 GM IVPB (18:20)
--- NOTE | 2020-11-17 19:23 | CMPROGNOTE_ITS ---
- If Service Date Differs Date of service: 11/17/20 Time of Service: 19:24 Care Management Progress Note S/O: Alton was sitting up in bed when CM met with him. He engaged readily with CM and was pleasant in interaction. Alton stated that he is feeling much better today. He shared that he did pretty will with PT but still has a ways to go. CM again broached the subject of SNF vs home with home health. Alton admitted that he still has not made up his mind. With further discussion, he informed CM that he knows he cannot go home alone. He said that he can't even get out of bed by himself. CM presented options for rehab and Alton was clear that he would not go to the [facility]. He agreed to consider NVNR. CM contacted Alton's mother Deidre to discuss the situation with her. When asked about her ability to stay with Alton for a while, she revealed that she is living with and caring for her daughter who is home bound so it would not be possible to stay with Alton. She stated that she felt if she talked to Alton pierson, she might be able to convince him to go to rehab so that he could get s tronger and come home. Apparently in a conversation with his sister today, he indicated that he would follow any recommendations [facility] staff made that would increase his chances of improving and be able to return home independently. A: Alton is a 60 year old man admitted to [facility] on 11/11/20 with sepsis, anemia and hypokalemia and hypomagnesemia. P: Alton continues to meet inpatient level of care. His disposition is not clear at this time. He has not been doing well at home and may need rehab when medically cleared. He, however, expressed his wish to return home. CM will continue to work with and support Alton and his mother to formulate a safe discharge plan. .
[2020-11-17] MEDS: Acetaminophen 325 MG TAB PO (20:06)
[2020-11-17] MEDS: Magnesium Gluconate 500 MG TAB 1000 MG PO (20:07)
[2020-11-17] MEDS: Midodrine 2.5 MG TAB PO (20:08)
[2020-11-18] VITALS (13 sets, daily range): BP systolic 92–110; BP diastolic 61–69; PULSE 77–98; RESP 1–20; TEMP 36.4–37.4; O2SAT 92–95
[2020-11-18] MEDS: Sucralfate 1 GM TAB PO ×4 (00:22→23:33)
[2020-11-18] MEDS: Levalbuterol 0.63 MG/3 ML UPD VIAL UPD ×4 (00:23→23:32)
[2020-11-18] MEDS: PIPERACILLIN/TAZO 4.5 GM in Normal Saline 100 ML 4 GM IVPB (02:43)
[2020-11-18 06:49] LABS: Anion Gap 9.2 mmol/L (3-11); BUN 7 mg/dL (7-18); CO2 24.8 mmol/L (21.0-32.0); CREATININE 0.66 mg/dL (0.70-1.30); Calcium 7.5 mg/dL (8.5-10.1); Chloride 107 mmol/L (98-107); Glucose 84 mg/dL (74-106); Magnesium 1.3 mg/dL (1.8-2.4); Potassium 3.3 mmol/L (3.5-5.1); Sodium 141 mmol/L (136-145)
[2020-11-18] MEDS: Tiotropium Bromide-Respimat 10 PUFF INH IH (07:45)
[2020-11-18] MEDS: Lactulose 20 GM/30 ML CUP PO (08:08)
[2020-11-18] MEDS: MAGNESIUM SULFATE 4 GM/100 ML BAG IVPB (08:09)
[2020-11-18] MEDS: Midodrine 2.5 MG TAB PO ×2 (08:11→20:46)
[2020-11-18] MEDS: Pantoprazole 40 MG TABCR PO ×2 (08:11→20:46)
[2020-11-18] MEDS: Spironolactone 25 MG TAB PO (08:11)
[2020-11-18] MEDS: Thiamine 100 MG TAB PO (08:11)
[2020-11-18] MEDS: Multivitamin TAB 1 TAB PO (08:11)
[2020-11-18] MEDS: Folic Acid 1 MG TAB PO (08:11)
[2020-11-18] MEDS: guaiFENesin 600 MG TABCR PO ×2 (08:11→20:46)
[2020-11-18] MEDS: Magnesium Gluconate 500 MG TAB 1000 MG PO ×2 (08:11→20:48)
[2020-11-18] MEDS: predniSONE 20 MG TAB 40 MG PO (08:11)
[2020-11-18] MEDS: Normal Saline Flush 10 ML SYR 20 ML IVP (08:18)
[2020-11-18] MEDS: Potassium Chloride 10 MEQ CAPCR 20 MEQ PO ×3 (09:08→20:47)
--- NOTE | 2020-11-18 10:22 | CMPROGNOTE_ITS ---
- If Service Date Differs Date of service: 11/18/20 Time of Service: 10:22 Care Management Progress Note S/O: Alton was sitting up in bed when CM met with him. He stated that he had a bad night and that his breathing was not as good as it had been. CM again raised the issue of SNF vs home and also discussed the possibility of SB. Alton stated again that he would prefer to stay at [facility] and not go to rehab. A discussion with PT confirmed that Alton was a good candidate for SB-1. He has made great progress this week and it is possible that in another 7-10 days he will be ready to go home. Alton was in agreement with this plan. A: Alton is a 60 year old man admitted to [facility] on 11/11/20 with sepsis, anemia and hypokalemia and hypomagnesemia. P: Alton continues to meet inpatient level of care. He will transition to SB-1 when medically cleared by provider, which will likely be tomorrow. Alton will continue to work with PT towards his goals of global strengthening, safe ambulation and independent self-care. CM will continue to work with and support Alton and his mother to formulate a safe discharge plan.
[2020-11-18] MEDS: Furosemide 20 MG TAB PO ×2 (10:30→16:31)
[2020-11-18] MEDS: Tamsulosin 0.4 MG CAPCR PO (10:31)
[2020-11-18 10:58] LABS: Bilirubin Small (Negative); Blood Negative (Negative); Clarity Sl Cloudy (Clear); Glucose Negative (Negative); Ketones Trace mg/dL (Negative); Leukocyte Esterase Trace (Negative); Nitrite Negative (Negative); Specific Gravity 1.025 (1.005-1.025); Urobilinogen 0.2 EU/dL (Up TO 0.2); pH 5.5 (5-8)
[2020-11-18] MEDS: PIPERACILLIN/TAZO 4.5 GM in Normal Saline 100 ML IVPB ×2 (11:02→18:45)
[2020-11-18 11:20] LABS: Epithelial Cells Few HPF (Negative); RBC 0-2 HPF (0-2)
[2020-11-18 11:21] LABS: Bacteria Few HPF (Negative); Crystals Few Amorphous HPF (Negative); Mucus Trace (Negative)
[2020-11-18 11:22] LABS: C & S Indicated? Yes; Casts 0-2 Hyaline LPF (Negative)
--- NOTE | 2020-11-18 12:33 | PGE_ITS ---
Date of Service Date of service: 11/18/20 Time of Service: 12:33 Assessment and Plan Assessment and plan (1) Aspiration pneumonia: Status: Acute Assessment and plan: Day #5 of 5 Zosyn 4.5 g IV every 8 hours. Acapella and Mucinex added to his pulmonary toiletry. Increase mobilization. Liberalize his activity. Continue physical therapy. Continue prednisone. Will recheck P CXR prior to discharge. Qualifiers: Aspiration pneumonia type: unspecified Laterality: left Lung location: lower lobe of lung Qualified Code(s): J69.0 - Pneumonitis due to inhalation of food and vomit (2) Anemia due to acute blood loss: Status: Acute Assessment and plan: stable H&H at 10 gm/ 30%. cont. protonix and carafate. (3) Upper GI bleeding: Status: Acute Assessment and plan: As above. (4) Ascites: Status: Acute Assessment and plan: Dr. Mackay felt that his ascites was not enough to warrant paracentesis. Patient has been placed on Lasix and spironolactone. Qualifiers: Ascites type: due to alcoholic hepatitis Qualified Code(s): K70.11 - Alcoholic hepatitis with ascites (5) Acute hypokalemia: Status: Acute Assessment and plan: Despite the addition of spironolactone and low-dose potassium supplementation he has hypokalemia is a recurrent problem. I have increased his supplementation to 20 mg twice a day in addition to his spironolactone. I will recheck his labs in the morning. Furthermore he also has recurrent hypomagnesemia with a magnesium level 1.3. He is getting both oral and IV magnesium replacement. (6) Hypomagnesemia: Status: Chronic Assessment and plan: As above (7) Urinary tract infection symptoms: Status: Acute Assessment and plan: Walters was removed last night and reportedly had some purulent discharge. Repeat urinalysis with reflex culture has been ordered. (8) Hepatic encephalopathy: Status: Resolved Assessment and plan: Mental status continues to improve. Patient remain on thiamine and folic acid and multivitamin as well as lactulose. (9) COPD (chronic obstructive pulmonary disease): Status: Chronic Assessment and plan: acute exacerbation secondary to pneumonia. Continue Zosyn, Xopenex aerosol treatments, prednisone Qualifiers: COPD type: COPD with acute lower respiratory infection Qualified Code(s): J44.0 - Chronic obstructive pulmonary disease with (acute) lower respiratory infection (10) DVT prophylaxis: Status: Acute Assessment and plan: TEDs/SCDs. Chemical DVT ppx is contraindicated in setting of active GI bleeding (11) Discharge planning issues: Status: Acute Assessment and plan: DNR/DNI - signed COLST form with palliative care. Referral for SNF if this fails and patient will enter into swing bed status. Subjective Subjective Interval history since last seen: Patient's walters was removed last night. However, he has been voiding small amounts. I have asked nursing to perform bladder scans w/ intermittent straight catheterization. However, d/t his ascites the bladder scans have been inaccurate. I will have nursing straight cath him Q6h and if he has no significant residuals then we can stop doing straight cath. He denies any dysuria. I have added Flomax to his regimen. With respect to his aspiration pneumonia, he is doing better. He has a moist c ough but has trouble mobilizing sputum. He is on programmed nebulizer treatments and acapella. He remains on Zosyn 4.5 gm Q8hr. Today is d#5/5. I will dc this after today. he will get repeat CXR tomorrow. In addition to bronchodilators and antibiotics, he is on prednisone 40 mg daily. Today is d#4, I will continue this one more day. With respect to his alcohol withdrawal, he is no longer in withdrawal and all benzodiazepine have been stopped. With respect to his cirrhosis and ascites, he is on lactulose to prevent hepatic encephalopathy and I have put him on spironolactone, and I am adding lasix. To combat his soft blood pressures he has been put on midodrine and I have asked nursing for thigh high TEDS. As for rehabilitation, CM is reaching out to area SNF, however, he may just need swing bed for a few more days, so we may transition to swing status tomorrow. Exam Narrative Exam Narrative: Middle-age male looks much older than his stated age of 60. He is sitting up in bed having finished his breakfast. RT came in to give him his aerosol treatment. His primary nurse came in the room with me while I performed [id number] ultrasound of his bladder. Bladder appears to be distended and nursing is going to do straight cath. He is alert and oriented person place time circumstance Lungs with scattered inspiratory and expiratory wheezes Heart regular rate and rhythm without murmur rub or gallop Abdomen is distended with soft abdomen but positive fluid wave. Nontender to palpation. Lower extremities without edema Objective Last Vital Signs Temp 37.1 C 11/18/20 10:43 Pulse 81 11/18/20 10:43 Resp 17 11/18/20 10:43 BP 110/69 11/18/20 10:43 Pulse Ox 95 11/18/20 10:43 Laboratory Results - last 24 hr 11/18/20 11/18/20 06:20 10:35 Sodium 141 Potassium 3.3 L Chloride 107 Carbon Dioxide 24.8 Anion Gap 9.2 BUN 7 Creatinine 0.66 L Estimated GFR/1.73 m2 >= 60.00 Glucose 84 Calcium 7.5 L Magnesium 1.3 L Urine Color [place] Urine Clarity Sl cloudy Urine pH 5.5 Ur Specific [place] 1.025 Urine Protein Trace H Urine Ketones Trace H Urine Blood Negative Urine Nitrite Negative Urine Bilirubin Small H Urine Urobilinogen 0.2 Ur Leukocyte Esterase Trace H Urine RBC 0-2 Urine WBC 5-10 Ur Epithelial Cells Few Urine Crystals Few amorphous Urine Bacteria Few Urine Casts 0-2 hyaline Urine Mucus Trace Urine Other Ur Culture Indicated? Yes Urine Glucose Negative
[2020-11-18] MEDS: Lidocaine 2% Jelly 11 ML SYR UR (13:27)
--- NOTE | 2020-11-18 14:55 | PTTR_ITS ---
Date of service: 11/18/20 Time of Service: 14:00 PT Notes Visit Reasons: LEUCOCYTOSIS, ANNALISA, HYPOKALEMIA, HYPOMAGNESEMIA, AN Inpatient Physical Therapy Treatment Note [facility] Date: 11/18/2020 PRECAUTIONS: Fall SUBJECTIVE: Alton states that he is feeling worse today. He reports that he did not sleep last night. Per Alton's request, he does not get out of bed today, he performed bed-level exercises. OBJECTIVE: PAIN: Patient c/o L-sided groin pain with hip abduction exercise BED MOBILITY/TRANSFERS/GAIT: Patient declined OOB. THEREX: Patient was instructed in a resisted UE and a LE strengthening program, in a supine position with HOB elevated to 20 degrees, as per flow sheet. He was able to tolerate additional exercises, as well as increased repetitions. He was issued 2# dumbbells for UE exercise completion. ASSESSMENT: Patient tolerated session with minimal c/o increased SOB with bed- level exercises. He also c/o L-sided groin pain with hip abduction exercises. He was able to tolerate the addition of resistance with UE exercises, as well as the addition of several new LE exercises. PLAN: Continue with global strengthening, as well as gait and transfer training. TREATMENT CODE/TIME: 25 minutes; [id number] x2
[2020-11-19] VITALS (7 sets, daily range): BP systolic 99–113; BP diastolic 60–80; PULSE 76–98; RESP 8–20; TEMP 36.7–37.2; O2SAT 90–99
[2020-11-19] MEDS: PIPERACILLIN/TAZO 4.5 GM in Normal Saline 100 ML IVPB (02:17)
[2020-11-19] MEDS: Normal Saline Flush 10 ML SYR IVP ×2 (02:17→06:38)
[2020-11-19] MEDS: Sucralfate 1 GM TAB PO ×2 (06:07→11:24)
[2020-11-19] MEDS: Levalbuterol 0.63 MG/3 ML UPD VIAL UPD ×3 (06:08→11:57)
--- NOTE | 2020-11-19 06:45 | NUR.NOTE ---
Nursing Note: Blood draw on central line attempted by Jaz Mittal RN and nurse corporate logistics manager Dr. Nuha Montgomery RN. Neither attempt was successful; charge nurse notified.
[2020-11-19] MEDS: Tiotropium Bromide-Respimat 10 PUFF INH IH (07:33)
[2020-11-19] MEDS: Midodrine 2.5 MG TAB PO ×2 (08:20→11:24)
[2020-11-19] MEDS: Lactulose 20 GM/30 ML CUP PO (08:20)
[2020-11-19] MEDS: Multivitamin TAB 1 TAB PO (08:20)
[2020-11-19] MEDS: Tamsulosin 0.4 MG CAPCR PO (08:20)
[2020-11-19] MEDS: Potassium Chloride 10 MEQ CAPCR 20 MEQ PO (08:20)
[2020-11-19] MEDS: Furosemide 20 MG TAB PO (08:21)
[2020-11-19] MEDS: guaiFENesin 600 MG TABCR PO (08:21)
[2020-11-19] MEDS: Magnesium Gluconate 500 MG TAB 1000 MG PO (08:21)
[2020-11-19] MEDS: Pantoprazole 40 MG TABCR PO (08:21)
[2020-11-19] MEDS: Thiamine 100 MG TAB PO (08:21)
[2020-11-19] MEDS: predniSONE 20 MG TAB 40 MG PO (08:21)
[2020-11-19] MEDS: Protein Nutritional Supplement 16 GM 1 OUNCE PACKET PO (08:21)
[2020-11-19] MEDS: Spironolactone 25 MG TAB PO (08:21)
[2020-11-19] MEDS: Folic Acid 1 MG TAB PO (08:21)
[2020-11-19] MEDS: Normal Saline Flush 10 ML SYR 20 ML IVP (08:22)
[2020-11-19 08:52] LABS: Abs Immature Grans 0.03 10^3/uL (0.0-0.06); Absolute Basophil Count 0.01 10^3/uL (0.0-0.2); Absolute Lymphocyte Count 1.08 10^3/uL (1.2-3.4); Absolute Monocyte Count 1.56 10^3/uL (0.1-0.8); Basophils % 0.1; Eosinophils % 0.3; HCT 32.6 % (40.0-50.0); HGB 10.6 g/dL (13.5-17.5); Immature Grans % 0.3; Lymphocytes % 9.2; MCH 30.4 pg (27.0-33.0); MCHC 32.5 % (32.0-36.0); MCV 93.4 fL (80-95); MPV 10.4 fL (8.0-11.0); Monocytes % 13.3; Neutrophils % 76.8; Nucleated RBC 0 %; RBC 3.49 10^6/uL (4.36-5.78); RDW 23.6 % (11.8-14.1); RDW-SD 78.2 fL; WBC 11.74 10^3/uL (4.4-10.8)
[2020-11-19 08:55] LABS: Absolute Eosinophil Count 0.04 10^3/uL (0.0-0.7); Absolute Neutrophil Count 9.02 10^3/uL (1.2-6.7)
[2020-11-19 09:00] LABS: ALT 49 U/L (16-63); AST 100 U/L (15-37); Albumin 1.7 g/dL (3.4-5.0); Alkaline Phosphatase 63 U/L (46-116); Anion Gap 7.8 mmol/L (3-11); BUN 6 mg/dL (7-18); Bilirubin, Total 1.8 mg/dL (0.2-1.0); C-Reactive Protein 1.02 mg/dL (0.0-0.3); CO2 25.2 mmol/L (21.0-32.0); CREATININE 0.75 mg/dL (0.70-1.30); Calcium 7.7 mg/dL (8.5-10.1); Chloride 103 mmol/L (98-107); Glucose 150 mg/dL (74-106); Magnesium 1.4 mg/dL (1.8-2.4); Potassium 3.8 mmol/L (3.5-5.1); Sodium 136 mmol/L (136-145); Total Protein 5.6 g/dL (6.4-8.2)
[2020-11-19 09:12] LABS: Platelet Count 194 10^3/uL (130-400)
[2020-11-19 09:13] LABS: Anisocytosis 2+; Diff Comment Agrees w/ Instrument; Hypochromasia 2+; Polychromasia Present
[2020-11-19 09:14] LABS: Poikilocytes 2+
[2020-11-19 09:17] LABS: Procalcitonin 0.2 ng/mL
--- NOTE | 2020-11-19 09:51 | DI.RAD_ITS ---
EXAM: XR CHEST 2V PA LATERAL CLINICAL HISTORY: Follow-up for pneumonia TECHNIQUE: COMPARISON: CR XR PORTABLE CHEST AP from 11/11/2020 CR XR PORTABLE CHEST AP from 11/13/[address] ABDOMEN PELVIS WO from 11/16/2020 FINDINGS: The heart is not enlarged. There are large bilateral pleural effusions. Appearance on the frontal f ilm suggests probable mild interval increase since November 13. There are areas of presumed atelecta sis in the lung bases. Upper lung zones appear clear. IMPRESSION: Large bilateral pleural effusions as noted on abdominal CT of due November 16. No definite consolid ation but consolidation could be obscured by the large pleural effusions. RADIATION DOSE DELIVERED: Total DLP
--- NOTE | 2020-11-19 10:30 | PDOC.CMPRO ---
- If Service Date Differs Date of service: 11/19/20 Time of Service: 10:30 Care Management Progress Note Alton will transition to SB-1 today. He will continue to work with PT towards his goals of global strengthening, safe ambulation and independent self-care. CM will continue to work with and support Alton and his mother to formulate a safe discharge plan. cc:
--- NOTE | 2020-11-19 10:53 | W.PM.PROGNOT ---
Date of Service Date of service: 11/19/20 Time of Service: 10:53 Assessment and Plan Assessment and plan (1) Aspiration pneumonia: Status: Resolved Assessment and plan: Patient completed 5 days of Zosyn yesterday. He is afebrile. His white count is nearly normal now. His oxygenation has improved remarkably. He is not coughing up any purulent sputum at present time I think he can be discharged from acute medical status to swing bed status. We will still need to monitor his electrolytes because of his diuretic use for his ascites. Qualifiers: Aspiration pneumonia type: unspecified Laterality: left Lung location: lower lobe of lung Qualified Code(s): J69.0 - Pneumonitis due to inhalation of food and vomit (2) Anemia due to acute blood loss: Status: Acute Assessment and plan: stable H&H at 10 gm/ 30%. cont. protonix and carafate. (3) Upper GI bleeding: Status: Resolved Assessment and plan: As above. No further GI bleeding. Continue Protonix and Carafate as above. Will need monitoring at least weekly with a CBC. Surgery has declined to do a repeat EGD. (4) Ascites: Status: Acute Assessment and plan: Surgeons have declined to do paracentesis. At this point we will treat it medically with diuretics and monitor his electrolytes. Qualifiers: Ascites type: due to alcoholic hepatitis Qualified Code(s): K70.11 - Alcoholic hepatitis with ascites (5) Acute hypokalemia: Status: Resolved Assessment and plan: Potassium levels up to 3.8 now. He is requiring supplemental potassium despite being on spironolactone. This will need to be monitored couple times a week while in swing bed status to ensure that he is getting adequate replacement. (6) Hypomagnesemia: Status: Chronic Assessment and plan: Hypomagnesemia continues to be a chronic issue. I think this is due to nutritional deficiency along with being on a diuretic and a PPI. He is receiving oral supplementation. We will continue to monitor. He may from time to time require IV supplementation. I will order magnesium levels to be monitored couple times a week while he is on swing bed status. (7) Hepatic encephalopathy: Status: Resolved Assessment and plan: Mental status now back to baseline. Patient remain on thiamine and folic acid and multivitamin as well as lactulose. (8) COPD (chronic obstructive pulmonary disease): Status: Chronic Assessment and plan: COPD exacerbation appears to be resolved. His lungs are clear. We can make the Xopenex as needed. He is complete his 5-day course of Zosyn. We can discontinue his prednisone at this point. He may benefit from a inhaled long-acting beta agonist and an inhaled corticosteroid. Qualifiers: COPD type: COPD with acute lower respiratory infection Qualified Code(s): J44.0 - Chronic obstructive pulmonary disease with (acute) lower respiratory infection (9) DVT prophylaxis: Status: Acute Assessment and plan: TEDs/SCDs. Chemical DVT ppx is contraindicated in setting of active GI bleeding (10) Discharge planning issues: Status: Acute Assessment and plan: DNR/DNI - signed COLST form with palliative care. Discharge to swing bed status effective today. Subjective Subjective Interval history since last seen: Patient continues to improve. He is now completed 5 days of Zosyn for aspiration pneumonia. He is off any oxygen. His oxygen saturation is in the high 90s on room air. He is not short of breath. He denies any chest pain or nausea or vomiting or abdominal pain. Does complain of a rash in his groin which I looked at it appears to be a tinea. He says this is the first time in 40 years that he is not had a cigarette. Does not seem to be going through any nicotine withdrawal. We will get a transition him into swing bed status today. His pressures are little on the soft side in the high 90s since I started him on Lasix and spironolactone. I have increased his midodrine to 5 mg twice a day. He needs a diuretic to treat his ascites. Exam Narrative Exam Narrative: Middle-age male who appears to be older than his stated age. He is alert and oriented to person place time circumstance. Lungs are clear to auscultation Heart regular rate and rhythm Abdomen soft nontender with active bowel sounds. Abdomen is mildly distended secondary to ascites. He has a positive fluid wave. No suprapubic tenderness. Lower extremities without peripheral cyanosis or edema. He has GERBER hose on. Objective Last Vital Signs Temp 37.2 C 11/19/20 07:39 Pulse 97 H 11/19/20 09:21 Resp 17 11/19/20 09:21 BP 99/65 L 11/19/20 07:39 Pulse Ox 92 11/19/20 09:58 Laboratory Results - last 24 hr 11/18/20 11/19/20 11/19/20 10:35 08:40 08:40 WBC RBC Hgb Hct MCV MCH MCHC RDW Plt Count MPV Immature Gran % Neutrophils % Lymphocytes % Monocytes % Eosinophils % Basophils % Nucleated RBC % Absolute Neutrophils Absolute Lymphocytes Absolute Monocytes Absolute Eosinophils Absolute Basophils RBC Morphology Polychromasia Hypochromasia Poikilocytosis Anisocytosis Sodium 136 Potassium 3.8 Chloride 103 Carbon Dioxide 25.2 Anion Gap 7.8 BUN 6 L Creatinine 0.75 Estimated GFR/1.73 m2 >= 60.00 Glucose 150 H Calcium 7.7 L Magnesium 1.4 L Total Bilirubin 1.8 H AST 100 H ALT 49 Alkaline Phosphatase 63 C-Reactive Protein 1.02 H Total Protein 5.6 L Albumin 1.7 L Procalcitonin 0.2 Urine Color Maria Stein Urine Clarity Sl cloudy Urine pH 5.5 Ur Specific [place] 1.025 Urine Protein Trace H Urine Ketones Trace H Urine Blood Negative Urine Nitrite Negative Urine Bilirubin Small H Urine Urobilinogen 0.2 Ur Leukocyte Esterase Trace H Urine RBC 0-2 Urine WBC 5-10 Ur Epithelial Cells Few Urine Crystals Few amorphous Urine Bacteria Few Urine Casts 0-2 hyaline Urine Mucus Trace Urine Other Ur Culture Indicated? Yes Urine Glucose Negative 11/19/20 08:40 WBC 11.74 H RBC 3.49 L Hgb 10.6 L Hct 32.6 L MCV 93.4 MCH 30.4 MCHC 32.5 RDW 23.6 H Plt Count 194 MPV 10.4 Immature Gran % 0.3 Neutrophils % 76.8 Lymphocytes % 9.2 Monocytes % 13.3 Eosinophils % 0.3 Basophils % 0.1 Nucleated RBC % 0 Absolute Neutrophils 9.02 H Absolute Lymphocytes 1.08 L Absolute Monocytes 1.56 H Absolute Eosinophils 0.04 Absolute Basophils 0.01 RBC Morphology See below Polychromasia Present Hypochromasia 2+ Poikilocytosis 2+ Anisocytosis 2+ Sodium Potassium Chloride Carbon Dioxide Anion Gap BUN Creatinine Estimated GFR/1.73 m2 Glucose Calcium Magnesium Total Bilirubin AST ALT Alkaline Phosphatase C-Reactive Protein Total Protein Albumin Procalcitonin Urine Color Urine Clarity Urine pH Ur Specific [place] Urine Protein Urine Ketones Urine Blood Urine Nitrite Urine Bilirubin Urine Urobilinogen Ur Leukocyte Esterase Urine RBC Urine WBC Ur Epithelial Cells Urine Crystals Urine Bacteria Urine Casts Urine Mucus Urine Other Ur Culture Indicated? Urine Glucose
--- NOTE | 2020-11-19 11:15 | PT.INDS ---
Date of service: 11/19/20 PT Notes Visit Reasons: LEUCOCYTOSIS, ANNALISA, HYPOKALEMIA, HYPOMAGNESEMIA, AN Physical Therapy Inpatient Discharge Summary Date: 11/19/2020 Dates of Service: through 11/18/2020 This is a clinical summary of care provided on the duration of dates listed above. No charge was made in the completion of this documentation. Referring Doctor: Laila Ontiveros MD PT Orders: PT CONSULT: Limited ability Precautions: Fall. Standard. Activity as tolerated. Patient Profile/Admitting Diagnosis: Alton is a 60-year-old male with past medical history significant for EtOH abuse and COPD who presented to the ED via EMS on 11/11/2019 with generalized weakness, confusion, increased urinary frequency, medication noncompliance, difficulty with ambulation, and bilateral leg swelling. He was found at home by his mother with altered mental status and generalized weakness. He is diagnosed with anemia due to acute blood loss, upper GI bleeding, acute hypokalemia, hypomagnesemia, leukocytosis, urinary tract infection, jaundice, and acute kidney injury. PMHX: Medical History (Updated 11/11/20 @ 16:48 by Laila Ontiveros MD) Abnormal abdominal CT scan Alcohol induced fatty liver Alcohol use disorder Alcohol use disorder Anemia, iron deficiency Arthritis Atherosclerosis of abdominal aorta Hopson's esophagus determined by endoscopy Barretts esophagus Bone spur of foot Chronic iron deficiency anemia COPD (chronic obstructive pulmonary disease) DDD (degenerative disc disease) Dehydration Dehydration, mild Depression Depression with anxiety Diverticulosis Erosive gastritis Erosive gastritis Esophageal reflux Essential tremor Fatty liver Gastroenteritis Hematemesis Hepatitis A Hyperlipemia Hypokalemia due to excessive gastrointestinal loss of potassium Hypomagnesemia Insomnia Left knee pain LLQ abdominal pain Low back pain Lower extremity edema Nonspecific ST-T wave electrocardiographic changes Osteoarthritis (arthritis due to wear and tear of joints) Rectal polyp Smoker unmotivated to quit Suspected COVID-19 virus infection Tetrahydrocannabinol (THC) use disorder, moderate, dependence Thrombocytopenia Tobacco use disorder Transaminitis Urinary incontinence Urinary urgency (08/14/17) Surgical History History of foot surgery Hx of colonoscopy Hx of esophagogastroduodenoscopy Social History/Home Situation: Lives alone in a private home in [place] with 3 steps with the rails to enter. Not fully able to get a reliable history due to persistent somnolence. Equipment Owned/DME: None Subjective: I feel cold and feel not so up to doing anything. Agreeable to getting out of bed after strong encouragement from PT. Reported being out of breath after stairs training and walling back to room. Objective: General Observation: Supine in bed. Bilateral TEDS on. Mental Status: Somnolent. Speech not fully discernible 50% of the time due to mental status. Pain: None reported. ROM: Right Upper Extremity: Shoulder Flexion allows about 100 degrees. Shoulder abduction allows about 90 degrees. Elbow flexion WFL. Wrist flexion WFL. Opening and closing of hand WFL. Left Upper Extremity: Shoulder Flexion allows about 100 degrees. Shoulder abduction allows about 90 degrees. Elbow flexion WFL. Wrist flexion WFL. Opening and closing of hand WFL. Right Lower Extremity: Hip flexion unable to lift thigh while seated at EOB. Hip abduction WFL. Knee flexion 30 to 90 degrees. Ankle dorsiflexion 20 degrees to neutral. Ankle plantarflexion 20 degrees. Left Lower Extremity: Hip flexion unable to lift thigh while seated at EOB. Hip abduction WFL. Knee flexion 30 to 90 degrees. Ankle dorsiflexion 20 degrees to neutral. Ankle plantarflexion 20 degrees. Strength: Right Upper Extremity: Shoulder flexors 3-/5. Shoulder abductors 3-/5. Elbow flexors 4-/5. Elbow extensors 4-/5. [employer] weak but functional. Left Upper Extremity: Shoulder flexors 3-/5. Shoulder abductors 3-/5. Elbow flexors 4-/5. Elbow extensors 4-/5. [employer]person [employer] weak but functional. Right Lower Extremity: Hip flexors 3-/5. Hip abductors 4-/5. Knee flexors 3-/5. Knee extensors 3-/5. Ankle dorsiflexors 3-/5. Ankle plantarflexors 3-/5. Left Lower Extremity: Hip flexors 3-/5. Hip abductors 4-/5. Knee flexors 3-/5. Knee extensors 3-/5. Ankle dorsiflexors 3-/5. Ankle plantarflexors 3-/5. Sensation: Unable to test at this time Bed Mobility/Transfers: Supine to sit minimal assist Sit to stand contact-guard assist Stand to sit stand by assist Bed to chair stand by assist Chair to bed stand by assist. Gait: Able to tolerate up to 110 feet of level surface ambulation using the FWW with SBA with increased R LE hip external rotation causing out-toeing. Balance: Static Sitting: Normal Dynamic Sitting: Normal Static Standing: Fair Dynamic Standing: Fair Assessment: Alton adlerrates much improved functional mobility skills with this episode of care under acute level. He will benefit from continued services to progress bed mobility, transfers, and ambulation activity in anticipation of discharge to home with needed HH services under swing bed level 1. Aspiration PNA, GI bleed, hypokalemia have all been resolved per hospitalist. His H and H have also been stable. Patient presents with clinical signs and symptoms consistent with current/admitting diagnoses that have resulted to mobility limitations, gait instability, generalized weakness, and impairment of motor control as demonstrated by the following impairment level findings: 1. Continued wekaness to B UE/LE major muscle groups 2. Impaired standing balance 3. Desaturation and SOB with ambulation and stairs 4. Limitation of joint range of motion in B UE/LE Impairments are contributing to the following functional limitations: 1. Dependent bed mobility skills 2. Increased dependence with transfers 3. Inability to safely ambulate without assistive device and SBA 4. Increase completion time for mobility ADL performance 5. Increased fall risk 6. Inability to negotiate steps alone safely Goals: Goals X1 week 1. Supine-Sit independent NOT MET 2. Sit-Supine independent NOT MET 3. Sit-Stand independent NOT MET 4. Stand-Sit independent NOT MET 5. Bed-Chair independent NOT MET 6. Chair-Bed independent NOT MET 7. Independent gait on level surface with use of least restrictive device for at least 300 feet without report of pain nor dyspnea NOT MET 8. Independent stair negotiation while holding onto bilateral rails for at least 5 steps without report of pain nor dyspnea NOT MET 9. Independent with home exercise program 10. Good static and dynamic standing balance/tolerance DISCHARGE RECOMMENDATIONS: Patient will benefit from home health PT services in order to progress mobility level using least restrictive assistive ambulatory device, assess home safety, identify additional equipment needs, and establish a functional maintenance program that will increase ability of patient to remain at home. TREATMENT CODE/TIME: NC. Thank you for the opportunity to participate in the care of this patient. Sabina Kuamr PT, DPT, CLT [facility], [place]
--- NOTE | 2020-11-19 14:00 | W.PM.DS.N ---
Date of service: 11/19/20 Time of Service: 14:00 DS: Diagnosis Discharge Diagnosis (1) Aspiration pneumonia: Status: Resolved Asessment and Plan: Treated w/ 5 day course of Zosyn 4.5 gm iv Q8hr and xopenex nebulizers, acapella and prednisone 40 mg daily x 5 days. (2) Anemia due to acute blood loss: Status: Acute Asessment and Plan: improving after treatment w/ 2 units of packed red blood cells and supplemental vitamins and iron. (3) Upper GI bleeding: Status: Resolved Asessment and Plan: no further bleeding episodes were noted during his hospital stay. He presented w/ melena and heme positive stools but never had overt hematochezia. Final hemoglobin was 10.6 gm (up from admission Hb 7.6 which dropped to as low as 7.0 during his first day of admission). Patient has been placed on protonix 40 mg bid along w/ carafate 1 gm ac/hs (4) Ascites: Status: Chronic Asessment and Plan: Patient never had paracentesis. He has been placed on spironolactone and lasix w/ potassium supplementation to treat his recurrent hypokalemia. He is also on supplemental magnesium. If his ascites does not improve, it may worth reconsidering paracentesis. (5) Acute hypokalemia: Status: Resolved Asessment and Plan: this will still need monitoring d/t his diuretic use. (6) Hypomagnesemia: Status: Chronic Asessment and Plan: despite iv and oral replacement, he still has a mild hypomagnesemia and will continue to need supplementation and monitoring (7) Hepatic encephalopathy: Status: Resolved Asessment and Plan: continue lactulose twice a day to keep 2 to 3 soft bm per day. (8) COPD (chronic obstructive pulmonary disease): Status: Chronic Asessment and Plan: patient placed on spiriva and symbicort and prn use of xopenex (9) ANNALISA (acute kidney injury): Status: Resolved Asessment and Plan: acute kidney injury was secondary to ATN from hypotension. (10) Bilateral pleural effusion: Status: Acute Asessment and Plan: pleural effusions felt to be d/t his fluid resuscitation on admisson and low albumin state from his cirrhosis. Hopefully w/ better nutrition, diuretics and mobilization his fluids will improve. (11) Coagulopathy: Status: Chronic Asessment and Plan: chronic issue d/t his cirrhosis however he had a partial response to vitamin K (12) DVT prophylaxis: Status: Resolved Asessment and Plan: patient not a candidate for heparin or lovenox d/t cirrhosis and coagulopathy. cont. TEDS and SCD (13) Discharge planning issues: Status: Acute Asessment and Plan: patient is DNR/DNI; he will be discharged home w/ HH services including P.T., nursing and DAG SPRAYER upon discharge from swing bed status Discharge Plan Disposition Patient Disposition: [facility] SWING BED LEVEL 1 Condition: Improving Discharge Details Reason For Visit: LEUCOCYTOSIS, ANNALISA, HYPOKALEMIA, HYPOMAGNESEMIA, AN Admit Date/Time: 11/11/20 13:45 Admit Provider: Laila Ontiveros Attending Provider: Laila Ontiveros Primary Care Provider: Jonathan [facility] Hospital Course: 60-year-old male alcoholic with history of chronic iron deficiency anemia secondary to chronic upper GI bleeding due to erosive esophagitis but no history of varices, not oxygen dependent COPD, chronic alcohol abuse, fatty liver, who presented to the hospital via EMS after his mother came in and checked on him and found him to be confused and he was incontinent of black stools. Stools were found to be Hemoccult positive. He was found to be more anemic than usual with his H&H down to 7.6/23.6 from his usual hemoglobin hematocrit of 10/30. He apparently been noncompliant with taking his medications. Furthermore he was found to be hypokalemic and hypomagnesemic with a potassium of 1.8 and magnesium 1.1. In addition the diarrhea had been complaining of dysuria but no fever or chills and no known exposure to COVID-19. Nevertheless because he is a poor historian he was treated as a PUI and admitted to the intensive care unit for blood transfusions and further monitoring. He was empirically started on ceftriaxone while blood and urine cultures were obtained. Palacios catheter was placed. Magnesium and potassium were replaced parenterally. He was found to have a coagulopathy due to his cirrhosis and was given vitamin K replacement. INR in admission was elevated at 1.7 and after vitamin K replacement came down to 1.4. He was transfused 2 units of packed red blood cells bring his admission hemoglobin up from 7.6 up to 9.3. At the time of discharge his hemoglobin was up to 10.6. He was placed on IV Protonix and a surgical consult was obtained with Dr. James Watkins who notes that the patient has a history of erosive gastritis and Hopson's esophagitis which was diagnosed on his last EGD from February 2020 when he was admitted for GI bleed was found to have generalized oozing from stomach but no visible bleeding vessel. She also noted he did not have varices at that time. Her recommendation was for IV fluid and packed red cell resuscitation along with PPI and Carafate and only perform EGD if he cannot be stabilized. She also recommend ultrasound or CT scan of his liver. Patient was resuscitated with packed red blood cells and IV fluids. Did have significant hypotension on his first night of admission. But he responded to IV fluids and packed red cells. He did not require vasopressors. His initial blood cultures from November 11, 2020 showed no growth. His initial urine culture showed Enterococcus species however the hospitalist at that time felt this was probably colonization and not true infection subsequent urine culture from November showed no growth and another urine culture obtained at that time his Palacios catheter was removed on November 18, 2020 demonstrated mixed gram-positive amelia less than 10,000 colonies. His Rocephin was discontinued. However, d/t worsening hypoxemia and leukocytosis and LLL infiltrate he was started on Zosyn for what was felt to be an aspiration pneumonia (patient had been obtunded when his mother found him and he was incontinent and therefore the infiltrate which was not seen on admission CXR on 11/11/2020 but now appeared on CXR on 11/13/2020 was felt to represent a pneumonia and not merely atelectasis. His leukocytosis and hypoxemia progressively improved w/ Zosyn although his leukocytosis never totally resolved probably d/t the addition of prednisone 40 mg which was given for his COPD in which he was having active bronchospasms. He completed a 5 day course of Zosyn ending on 11/18/2020. Repeat CXR taken on 11/19/2020 showed bilateral effusions but improvement in his LLL infiltrate. SpO2 at the time of discharge varied between 99% to 93%. He went through a mild acute alcohol withdrawal and CIWA scoring was monitored. A tivan per protocol was ordered along w/ thiamine, MVS, folic acid. However, he became very somnolent on ativan. I put him on low dose serax which he tolerated well and this reduced his need for repeated doses of lorazepam. His serax was weaned over couple of days. His hepatic encephalopathy improved w/ lactulose. Initially he had large volumes of iv fluids and 2 units of PRBC to resuscitate him from his hypotension. Eventually this necessitated iv lasix. However, when he began to experience low outputs w/ marginal low BP I resumed his iv fluids for couple of days from 11/14-11/16 before eventually stopping iv fluids when he was able to take adequate po. Because of increasing ascites and complaints of abdominal pain, I ordered an KUB and CT abdomen and pelvis w/out contrast and consulted Dr. Velazquez from general surgery. KUB was read as ileus versus incomplete SBO therefore CT was performed which demonstrated ascites and questionable intussusception of small bowel in the left pelvis. However, Dr. Velazquez did not feel that there was any SBO and he was disinclined to perform paracentesis. I put the patient on spironolactone and lasix to treat his ascites. He continued to have bowel movements and had no loss of appetite. At the time of discharge, he had no abdominal pain, nausea or emesis. Patient participated in physical therapy adn demonstrated marked improvement in his functional mobility skills and the therapist felt that he would benefit from an inpatient skilled treatment in swing bed level 1 facility. As such, the patient was agreeble to short term stay at [facility] in the swing bed program and is now discharged Home Meds and New Rx's Prescriptions: Continued mirtazapine 30 mg tablet 30 mg PO QHS Qty: 90 RF: 1 albuterol sulfate 90 mcg/actuation HFA aerosol inhaler 2 puff INHALATION Q4H PRN (Reason: bronchospasm) Qty: 18 RF: 12 ondansetron HCl [Zofran] 4 mg tablet 4 mg PO Q6H PRN (Reason: nausea and vomiting) Qty: 30 RF: 0 furosemide 20 mg tablet 20 mg PO DAILY Qty: 90 RF: 1 pantoprazole [Protonix] 40 mg tablet,delayed release (DR/EC) 40 mg PO BID Qty: 180 RF: 3 thiamine HCl (vitamin B1) 100 mg tablet 100 mg PO DAILY Qty: 90 RF: 3 blister packed meds PO RF: 0 Spiriva with HandiHaler 18 mcg capsule, w/inhalation device 1 cap INHALATION DAILY Qty: 60 RF: 3 gabapentin 300 mg capsule 300 mg PO HS Qty: 30 RF: 11 magnesium oxide 400 mg (241.3 mg magnesium) tablet 400 mg PO BID@1000,2000 Qty: 60 RF: 11 (DME) diaper,brief,adult,disposable Misc See Rx Instructions .ROUTE .MEDSUPPLY Qty: 14 RF: 0 Therapeutic-M 1 TAB tablet 1 tab PO DAILY Qty: 30 RF: 0 Discharge Instructions Instructions: Aspiration Pneumonia (DC), Alcohol Withdrawal (DC) Activity:: Activity as Tolerated Equipment/Supplies:: No Equipment Needed Diet:: Normal Diet Discharge Orders Discharge Orders: Discharge Order (Routine); Ordered 11/19/20 Ordered By: Niesl Frost Discharge Data Discharge Date/Time-TO BE ENTERED AT DEPARTURE: 11/19/20 14:08 DS: Summary Status at Discharge Functional status at discharge: uses cane/walker Overall status at discharge: patient is progressing back to baseline Mental Status: mental status grossly normal Speech and Movement: speech and movement normal Mood: congruent mood Affect: normal affect Time Spent with Patient providing and/or coordinating discharge services: Greater than 30 minutes Exam Narrative Exam Narrative: Middle-age male who appears to be older than his stated age. He is alert and oriented to person place time circumstance. Lungs are clear to auscultation Heart regular rate and rhythm Abdomen soft nontender with active bowel sounds. Abdomen is mildly distended secondary to ascites. He has a positive fluid wave. No suprapubic tenderness. Lower extremities without peripheral cyanosis or edema. He has GERBER hose on. Psych Mental Status: mental status grossly normal Speech and Movement: speech and movement normal Mood: congruent mood Affect: normal affect DS: Data Vitals/I&O Vitals and I&O: Vital Signs Temperature 36.7 C 11/19/20 11:35 Temperature Source Tympanic 11/19/20 11:35 Pulse 95 H 11/19/20 11:35 Pulse Rhythm Regular 11/19/20 08:32 Pulse 113 H 11/15/20 09:00 Respiratory Rate 20 11/19/20 11:35 Respiratory Effort 11/19/20 08:32 Respiratory Depth Normal 11/19/20 08:32 Respiratory Pattern Normal 11/19/20 08:32 Blood Pressure 113/80 11/19/20 11:35 Blood Pressure Mean 91 11/15/20 08:58 Blood Pressure Position Supine 11/15/20 08:58 Pulse Oximetry 93 11/19/20 11:35 Oxygen Delivery Method Room Air 11/19/20 11:35 Oxygen Flow Rate 0 11/19/20 11:35 Pain Level 0 11/19/20 11:35 Comment 11/18/20 09:23 Intake & Output 11/18/20 11/19/20 11/19/20 23:59 11:59 23:59 Intake Total 615 / 921.800 240 / 240 Output Total 375 / 405 40 / 40 Balance 240 / 516.800 200 / 200 Weight 62.9 kg Intake: IV 300 / 366.800 20 / 20 Oral 315 / 555 220 / 220 Output: Urine 375 / 405 40 / 40 Other: Urine Color Yellow Straw Urine Appearance Clear Clear Urine Odor Normal Normal Comment straight cath with Nurse Pt refusing to try and void @ this time. delcined nursing to cath at this time. Pt states he will try to void @ 1100. Stool Size Small Small Stool Characteristics Soft Soft Liquid Brown Brown Voiding Methods Diaper Urinal Incontinent Diaper Data Completed and Pending Labs on day of discharge: Labs from last 24 hours 11/19/20 11/19/20 11/19/20 08:40 08:40 08:40 WBC 11.74 H RBC 3.49 L Hgb 10.6 L Hct 32.6 L MCV 93.4 MCH 30.4 MCHC 32.5 RDW 23.6 H Plt Count 194 MPV 10.4 Immature Gran % 0.3 Neutrophils % 76.8 Lymphocytes % 9.2 Monocytes % 13.3 Eosinophils % 0.3 Basophils % 0.1 Nucleated RBC % 0 Absolute Neutrophils 9.02 H Absolute Lymphocytes 1.08 L Absolute Monocytes 1.56 H Absolute Eosinophils 0.04 Absolute Basophils 0.01 RBC Morphology See below Polychromasia Present Hypochromasia 2+ Poikilocytosis 2+ Anisocytosis 2+ Sodium 136 Potassium 3.8 Chloride 103 Carbon Dioxide 25.2 Anion Gap 7.8 BUN 6 L Creatinine 0.75 Estimated GFR/1.73 m2 >= 60.00 Glucose 150 H Calcium 7.7 L Magnesium 1.4 L Total Bilirubin 1.8 H AST 100 H ALT 49 Alkaline Phosphatase 63 C-Reactive Protein 1.02 H Total Protein 5.6 L Albumin 1.7 L Procalcitonin 0.2 Preliminary micro results at discharge 11/18/20 10:35 Urine Culture - Preliminary Urine - Clean Catch Gram Positive Amelia,Mixed PFSH Medical History (Updated 11/19/20 @ 18:40 by Niels Frost) Abnormal abdominal CT scan Alcohol induced fatty liver Alcohol use disorder Alcohol use disorder Anemia, iron deficiency Arthritis Atherosclerosis of abdominal aorta Hopson's esophagus determined by endoscopy Barretts esophagus Bone spur of foot Chronic iron deficiency anemia COPD (chronic obstructive pulmonary disease) DDD (degenerative disc disease) Dehydration Dehydration, mild Depression Depression with anxiety Diverticulosis DNI (do not intubate) DNR (do not resuscitate) Erosive gastritis Erosive gastritis Esophageal reflux Essential tremor Fatty liver Gastroenteritis Goals of care, counseling/discussion Hematemesis Hepatitis A Hyperlipemia Hypokalemia due to excessive gastrointestinal loss of potassium Hypomagnesemia Insomnia Left knee pain LLQ abdominal pain Low back pain Lower extremity edema Nonspecific ST-T wave electrocardiographic changes Osteoarthritis (arthritis due to wear and tear of joints) Palliative care patient POLST (Physician Orders for Life-Sustaining Treatment) signed 11/12/20 Rectal polyp Smoker unmotivated to quit Suspected COVID-19 virus infection Tetrahydrocannabinol (THC) use disorder, moderate, dependence Thrombocytopenia Tobacco use disorder Transaminitis Urinary incontinence Urinary urgency (08/14/17) Surgical History History of foot surgery Hx of colonoscopy Hx of esophagogastroduodenoscopy Family History (Updated 11/12/20 @ 22:05 by Cecile Phelan MD) Sister Anxiety Depression Father Cancer Mother Anxiety Social History (Updated 11/12/20 @ 22:08 by Cecile Phelan MD) Smoking/Tobacco Use Status: Current every day Tobacco Type: cigarettes Smoking packs per day: 1.5 Smoking cigarettes per day: 30.0 Smoking risk assessment performed?: Yes Alcohol Intake: current Alcohol Intake frequency: 3 or more drinks per day Alcohol type: beer Counseling provided: provider counseling Drug use: Daily Substance use type: marijuana Counseling given: Yes Details: No IV Drug Use Adopted: No Caregiver/Support person: No Foster care: No Household members: none Housing: house Number of Children: 0 Communication Needs: Corrective Lenses Education Level: high school Do you need help understanding health information?: Often current occupation: Unemployed Sexually active: No Do you think of yourself as: straight/heterosexual Current gender identity: male What is your relationship status?: never How often do you talk on the phone with friends or family?: three or more times per week How often do you get together with friends or relatives?: three or more times per week Panel score (0-1 are the most socially isolated patients): 1 What type of physical activity do you participate in: none and sedentary lifestyle Special pito needs: No Agree to transfusion: No Seatbelt use: always 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 Mom visits nearly daily. Friend Terrell Salvador visits every 3 weeks or so. Drinks and smokes too much. Always has. Feeling as if his health is giving out on him. This is not his first GI bleed. Not interested in quitting etoh or cigs. Knows it is killing him.
== END 2020-11-19 14:08 | disposition swing bed (61) | DRG 377 ==
LOC: ER 13:24 → ICU 14:21 → MS 11-15 11:56
PROVIDERS: Internal Medicine; Admitting Provider Internal Medicine; Emergency Provider Student in an Organized Health Care Education/Training Program; PCP Family Medicine; Visit Provider Internal Medicine
DX: K92.1 Melena (principal); J69.0 Pneumonitis due to inhalation of food and vomit; D62 Acute posthemorrhagic anemia; N17.9 Acute kidney failure, unspecified; J90 Pleural effusion, not elsewhere classified; K22.10 Ulcer of esophagus without bleeding; F10.231 Alcohol dependence with withdrawal delirium; E87.6 Hypokalemia; E83.42 Hypomagnesemia; K72.90 Hepatic failure, unspecified without coma; J44.9 Chronic obstructive pulmonary disease, unspecified; Z66 Do not resuscitate; K76.0 Fatty (change of) liver, not elsewhere classified; Z91.14 Patient's other noncompliance with medication regimen; K70.31 Alcoholic cirrhosis of liver with ascites; R09.02 Hypoxemia; K70.40 Alcoholic hepatic failure without coma; K70.0 Alcoholic fatty liver; I95.9 Hypotension, unspecified; M19.90 Unspecified osteoarthritis, unspecified site; K22.70 Barrett's esophagus without dysplasia; E86.0 Dehydration; F41.8 Other specified anxiety disorders; E78.5 Hyperlipidemia, unspecified; G47.00 Insomnia, unspecified; F17.210 Nicotine dependence, cigarettes, uncomplicated; D69.59 Other secondary thrombocytopenia; K25.9 Gastric ulcer, unspecified as acute or chronic, without hemorrhage or perforation; K70.11 Alcoholic hepatitis with ascites
CPT/HCPCS: 36410; 36415; 36416; 36591; 80048; 80053; 80076; 80307; 82550; 82962; 83690; 84145; 85027; 86704; 86706; 86709; 86803; 86850; 86900; 86901; 86920; 87040; 87077; 87340; 93005; 94618; 94640; 96361; 96365; 96366; 96368; 96375; 97110; 97163; 97166; 97530; 99233; 99239; 99253; 99255; 99285; 99291; U0003; 71045; 71046; 74019; 74176; 76700; 80320; 81003; 81015; 82140; 82607; 82728; 82746; 83540; 83550; 83605; 83735; 83880; 84443; 84484; 85014; 85018; 85025; 85610; 86140; 86644; 87086; 93010; 93970; 94668; 99284; J0131; J0610; J0696; J1941; J2060; J2543; J2930; J3430; J3475; J3480; J7512; J7614; P9016; Q9967

== ENCOUNTER 2020-11-19 14:02 | Inpatient (IN) | payer MEDICAID, SELFPAY ==
--- NOTE | 2020-11-19 12:05 | CM.SBPSYCH ---
- If Service Date Differs Date of service: 11/19/20 Time of Service: 12:05 SB Psychosocial/Act.Assessment - Hospital Admission Admission Date: 11/11/20 Admission From:: ED Diagnosis:: GI Bleed and anemia - Swing Bed Admission Swing Bed Admit Date:: 11/19/20 Swing Bed Level of Care: Level 1/SNF - Social Supports PREVIOUS FUNCTIONAL STATUS/SOCIAL/FAMILY SUPPORTS:: Alton lives alone in a single family home in [place]. His mother is a good support and spends a lot of time with him; Alton states that she visits almost every day. Alton is unemployed and has been for 3 years. He states that he manages his care independently. - Prior to Admission Living Arrangements/Environment Prior to Admission:: Alton lives alone in a mobile home in [place] His mother and sister live nearby and his mother is very supportive. 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 Alton likes to get in his care and just drive wherever the road takes him - Present Functional Status Physical Abilities:: weakened Cognitive:: alert and oriented Communication:: good verbal communication skills Behavior:: appropriate. does have a lot of anxiety especially re: breathing - Medical History PAST MEDICAL HISTORY/PAST SURGICAL HISTORY:: Medical History (Updated 11/11/20 @ 16:48 by Laila Ontiveros MD). Abnormal abdominal CT scan. Alcohol induced fatty liver. Alcohol use disorder. Alcohol use disorder. Anemia, iron deficiency. Arthritis. Atherosclerosis of abdominal aorta. Hospon's esophagus determined by endoscopy. Barretts esophagus. Bone spur of foot. Chronic iron deficiency anemia. COPD (chronic obstructive pulmonary disease). DDD (degenerative disc disease). Dehydration. Dehydration, mild. Depression. Depression with anxiety. Diverticulosis. Erosive gastritis. Erosive gastritis. Esophageal reflux. Essential tremor. Fatty liver. Gastroenteritis. Hematemesis. Hepatitis A. Hyperlipemia. Hypokalemia due to excessive gastrointestinal loss of potassium. Hypomagnesemia. Insomnia. Left knee pain. LLQ abdominal pain. Low back pain. Lower extremity edema. Nonspecific ST-T wave electrocardiographic changes. Osteoarthritis (arthritis due to wear and tear of joints). Rectal polyp. Smoker unmotivated to quit. Suspected COVID-19 virus infection. Tetrahydrocannabinol (THC) use disorder, moderate, dependence. Thrombocytopenia. Tobacco use disorder. Transaminitis. Urinary incontinence. Urinary urgency (08/14/17). Surgical History . History of foot surgery. Hx of colonoscopy. Hx of esophagogastroduodenoscopy General Health:: fair to poor - Admission Data Reason for Swing Bed Admission:: Alton is entering -1 for continued PT for strengthening and endurance. His goal is to be able to return home alone and be independent in self care. Discharge Plan:: Alton will retun to his mobile home in [place]. He will have new home health services for RN,PT, OT and HEAD INSPECTOR AND CENTER MARKER. He will follow up with his community providers and transport with family. Assessment: Alton has been doing well at [facility]. He has made a lot of progress with PT and has shown willingness to work towards his goals. He very much wants to be able to go home and care for himself independently. Sustainability Coach: Janae Panda Date Assessment was completed:: 11/19/20
--- NOTE | 2020-11-19 12:13 | CMSCP_ITS ---
- If Service Date Differs Date of service: 11/19/20 Time of Service: 12:13 Swingbed Plan of Care Plan of care: SWING BED PROGRAM ACTIVITIES/DISCHARGE PLAN OF CARE ACTIVITIES PLAN Date: 11/19/20 Identified Need: individualized activity plan focused on Alton's needs and interests Intervention/Plan: Alton enjoys watching television and fishing as well as country music. He has been provided with a word search book but declined other items from the activity cart. He enjoys visiting with staff and will be provided with reading materials related to fishing as available. Should music or pet therapy be available, Alton would enjoy those as well. [place] [facility] [place] Date: 11/19/20 Identified Need: Safe discharge plan Intervention/Plan:Alton will likely discharge home with new home health services for RN,OT,PT, RAILROAD CROSSING PROTECTION MAINTAINER. He will follow up with his community providers and transport with family. [place] [facility]
--- NOTE | 2020-11-19 14:04 | HPE_ITS ---
Date of service: 11/19/20 Time of Service: 14:04 Assessment and Plan Assessment and plan (1) Ambulatory dysfunction: Status: Chronic Assessment and plan: Physical therapy and possible occupational therapy to improve ADL performance and gait stability in preparation to returning home. Anticipated length of stay 1 week. (2) COPD (chronic obstructive pulmonary disease): Status: Chronic Assessment and plan: Continue Spiriva and Symbicort with as needed use of Xopenex. Use Acapella as needed to help with respiratory clearance of secretions. No need for long-term steroids. Qualifiers: COPD type: chronic bronchitis Chronic bronchitis type: simple Qualified Code(s): J41.0 - Simple chronic bronchitis (3) Ascites of liver: Status: Acute Assessment and plan: Continue furosemide and spironolactone. Monitor daily weights. Periodic monitoring of electrolytes and BUN and creatinine are needed at least a couple times a week. Continue oral supplementation with potassium and magnesium. (4) Barretts esophagus: Status: Chronic Assessment and plan: Continue Carafate and Protonix. Qualifiers: Hopson's esophagus type: without dysplasia Qualified Code(s): K22.70 - Hopson's esophagus without dysplasia (5) Erosive gastritis: Status: Acute Assessment and plan: PPI and Carafate as above (6) Anemia, iron deficiency: Status: Chronic Assessment and plan: Hemoglobin hematocrit improved greatly after blood transfusions during last hospital stay. We will recheck iron levels next week and if they remain low consider parenteral iron therapy Qualifiers: Iron deficiency anemia type: chronic blood loss Qualified Code(s): D50.0 - Iron deficiency anemia secondary to blood loss (chronic) (7) Hypomagnesemia: Status: Chronic Assessment and plan: Oral magnesium supplementation. May need periodic IV supplementation as well. (8) Alcohol use disorder: Status: Acute Assessment and plan: Recommend outpatient alcohol rehab executive business coach upon discharge. (9) POLST (Physician Orders for Life-Sustaining Treatment): Status: Acute Assessment and plan: Patient completed POLST form during recent hospital stay and is a DNR/DNI (10) Discharge planning issues: Status: Acute Assessment and plan: Anticipate up to 1 week stay in swing bed program then discharged home with home health services including nursing and physical therapy and/or occupational therapy along with medical records custodian and home health aide. History of Present Illness History of Present Illness Chief Complaint: weakness, deconditioning Narrative: 60-year-old male with history of COPD and alcoholic cirrhosis complicated by encephalopathy and coagulopathy who was recently hospitalized from November 11, 2020 through November 19, 2020 for recurrent upper GI bleeding presumptively from his erosive esophagitis and gastritis. He had had previous endoscopy in February 2020 but during this most recent hospitalization surgery declined to perform repeat EGD. He was resuscitated with IV fluids and transfusion of 2 units of packed red blood cells and placed on IV Protonix and subsequently switched to oral Protonix and oral Carafate. His hospitalization was complicated by aspiration pneumonia which was treated for 5 days with Zosyn and prednisone along with aerosolized bronchodilators. He has developed ascites and pleural effusions which are currently being treated with spironolactone and Lasix. He has had recurrent hypokalemia and hypomagnesemia which is required both IV and oral replacement. During his acute hospital stay physical therapy saw him and patient responded well to treatment but still had residual weakness due to his acute illness and chronic malnutrition. He is admitted to the swing bed status for further physical therapy to improve his gait and ambulation and strength. He still requires periodic monitoring of his CBC and BMP and magnesium levels. From a respiratory standpoint he has done quite well and is not requiring any supplemental oxygen. His acute kidney injury which she had on admission has since resolved. His GI bleeding has stopped and his hemoglobin has remained stable at around 10 g. It is expected he will need a short course of inpatient rehabilitation stay of a week or less and then he will return to his home with continued home health services including outpatient physical therapy and home nursing to monitor his chronic conditions. Review of Systems All systems reviewed & are unremarkable except as noted in HPI and below [facility] Medical History Abnormal abdominal CT scan Alcohol induced fatty liver Alcohol use disorder Alcohol use disorder Anemia, iron deficiency Arthritis Atherosclerosis of abdominal aorta Hopson's esophagus determined by endoscopy Barretts esophagus Bone spur of foot Chronic iron deficiency anemia COPD (chronic obstructive pulmonary disease) DDD (degenerative disc disease) Dehydration Dehydration, mild Depression Depression with anxiety Diverticulosis DNI (do not intubate) DNR (do not resuscitate) Erosive gastritis Erosive gastritis Esophageal reflux Essential tremor Fatty liver Gastroenteritis Goals of care, counseling/discussion Hematemesis Hepatitis A Hyperlipemia Hypokalemia due to excessive gastrointestinal loss of potassium Hypomagnesemia Insomnia Left knee pain LLQ abdominal pain Low back pain Lower extremity edema Nonspecific ST-T wave electrocardiographic changes Osteoarthritis (arthritis due to wear and tear of joints) Palliative care patient POLST (Physician Orders for Life-Sustaining Treatment) signed 11/12/20 Rectal polyp Smoker unmotivated to quit Suspected COVID-19 virus infection Tetrahydrocannabinol (THC) use disorder, moderate, dependence Thrombocytopenia Tobacco use disorder Transaminitis Urinary incontinence Urinary urgency (08/14/17) Surgical History History of foot surgery Hx of colonoscopy Hx of esophagogastroduodenoscopy Family History Sister Anxiety Depression Father Cancer Mother Anxiety Social History Smoking/Tobacco Use Status: Current every day Tobacco Type: cigarettes Smoking packs per day: 1.5 Smoking cigarettes per day: 30.0 Smoking risk assessment performed?: Yes Alcohol Intake: current Alcohol Intake frequency: 3 or more drinks per day Alcohol type: beer Counseling provided: provider counseling Drug use: Daily Substance use type: marijuana Counseling given: Yes Details: No IV Drug Use Adopted: No Caregiver/Support person: No Foster care: No Household members: none Housing: house Number of Children: 0 Communication Needs: Corrective Lenses Education Level: high school Do you need help understanding health information?: Often current occupation: Unemployed Sexually active: No Do you think of yourself as: straight/heterosexual Current gender identity: male What is your relationship status?: never How often do you talk on the phone with friends or family?: three or more times per week How often do you get together with friends or relatives?: three or more times per week Panel score (0-1 are the most socially isolated patients): 1 What type of physical activity do you participate in: none and sedentary lifestyle Special pito needs: No Agree to transfusion: No Seatbelt use: always Drive 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 Mom visits nearly daily. Friend Terrell [place] visits every 3 weeks or so. Drinks and smokes too much. Always has. Feeling as if his health is giving out on him. This is not his first GI bleed. Not interested in quitting etoh or cigs. Knows it is killing him. Meds Home Medications and Allergies Home Medications Medication Instructions Recorded Confirmed Type Therapeutic-M 1 tab PO DAILY #30 tab 12/12/17 11/11/20 Rx albuterol sulfate 90 mcg/actuation 2 puff INHALATION Q4H PRN #18 gm 02/14/20 11/11/20 Rx aerosol inhaler furosemide 20 mg tablet 20 mg PO DAILY #90 tab 05/14/20 11/19/20 Rx pantoprazole 40 mg tablet,delayed 40 mg PO BID #180 tab 05/19/20 11/19/20 Rx release thiamine HCl (vitamin B1) 100 mg 100 mg PO DAILY #90 tab 05/19/20 11/19/20 Rx tablet blister packed meds PO 06/11/20 06/30/20 History tiotropium bromide 18 mcg capsule 1 cap INHALATION DAILY #60 inh 06/11/20 11/19/20 Rx with inhalation device mirtazapine 30 mg tablet 30 mg PO QHS #90 tab 06/30/20 11/11/20 Rx gabapentin 300 mg capsule 300 mg PO HS #30 cap 07/09/20 11/11/20 Rx magnesium oxide 400 mg (241.3 mg 400 mg PO BID@1000,2000 #60 tab 07/09/20 11/11/20 Rx magnesium) tablet ondansetron HCl 4 mg tablet 4 mg PO Q6H PRN #30 tab 09/01/20 11/19/20 Rx diaper,brief,adult,disposable #14 ea 11/03/20 History Allergies Allergy/AdvReac Type Severity Reaction Status Date / Time No Known Allergies Allergy Verified 11/11/20 12:09 Exam Narrative Exam Narrative: Middle-age male who appears to be older than his stated age. He is alert and oriented to person place time circumstance. Lungs are clear to auscultation Heart regular rate and rhythm Abdomen soft nontender with active bowel sounds. Abdomen is mildly distended secondary to ascites. He has a positive fluid wave. No suprapubic tenderness. Lower extremities without peripheral cyanosis or edema. He has GERBER hose on. COVID-19 Screening Have you, or household traveled for leisure in last 14 days?: No
[2020-11-19 15:18] VITALS: BP 103/72; PULSE 63; RESP 18; TEMP 37.2; O2SAT 93
[2020-11-19] MEDS: Sucralfate 1 GM TAB PO ×2 (16:01→20:57)
[2020-11-19] MEDS: Furosemide 20 MG TAB PO (16:02)
[2020-11-19] MEDS: Protein Nutritional Supplement 16 GM 1 OUNCE PACKET PO (16:02)
--- NOTE | 2020-11-19 16:20 | PT.INIE ---
Date of service: 11/20/20 Time of Service: 11:22 PT Notes Visit Reasons: DECONDITIONING,AMBULATORY DYSFUNCTION Physical Therapy Inpatient Initial Evaluation Date: 11/19/2020 Referring Doctor: Niels Frost MD PT Orders: PT CONSULT: Extendeden stay weakness Precautions: Fall. Standard. Activity as tolerated. Patient Profile/Admitting Diagnosis: Alton converted to swing bed level 1 as of today, 11/19/2020 and is re-evaluated for continued PT services. Alton is a 60-year-old male with past medical history significant for EtOH abuse and COPD who presented to the ED via EMS on 11/11/2019 with generalized weakness, confusion, increased urinary frequency, medication noncompliance, difficulty with ambulation, and bilateral leg swelling. He was found at home by his mother with altered mental status and generalized weakness. He is diagnosed with anemia due to acute blood loss, upper GI bleeding, acute hypokalemia, hypomagnesemia, leukocytosis, urinary tract infection, jaundice, and acute kidney injury. Aspiration PNA, GI bleed, hypokalemia have all been resolved per hospitalist. PMHX: Medical History (Updated 11/11/20 @ 16:48 by Laila Ontiveros MD) Abnormal abdominal CT scan Alcohol induced fatty liver Alcohol use disorder Alcohol use disorder Anemia, iron deficiency Arthritis Atherosclerosis of abdominal aorta Hopson's esophagus determined by endoscopy Barretts esophagus Bone spur of foot Chronic iron deficiency anemia COPD (chronic obstructive pulmonary disease) DDD (degenerative disc disease) Dehydration Dehydration, mild Depression Depression with anxiety Diverticulosis Erosive gastritis Erosive gastritis Esophageal reflux Essential tremor Fatty liver Gastroenteritis Hematemesis Hepatitis A Hyperlipemia Hypokalemia due to excessive gastrointestinal loss of potassium Hypomagnesemia Insomnia Left knee pain LLQ abdominal pain Low back pain Lower extremity edema Nonspecific ST-T wave electrocardiographic changes Osteoarthritis (arthritis due to wear and tear of joints) Rectal polyp Smoker unmotivated to quit Suspected COVID-19 virus infection Tetrahydrocannabinol (THC) use disorder, moderate, dependence Thrombocytopenia Tobacco use disorder Transaminitis Urinary incontinence Urinary urgency (08/14/17) Surgical History History of foot surgery Hx of colonoscopy Hx of esophagogastroduodenoscopy Social History/Home Situation: Lives alone in a private home in [place] with 3 steps with the rails to enter. Not fully able to get a reliable history due to persistent somnolence. Equipment Owned/DME: None Subjective: I feel cold and feel not so up to doing anything. Agreeable to getting out of bed after strong encouragement from PT. Reported being out of breath after stairs training and walling back to room. Objective: General Observation: Supine in bed. Mental Status: Alert and oriented. Pain: None reported. ROM: Right Upper Extremity: Shoulder Flexion allows about 100 degrees. Shoulder abduction allows about 90 degrees. Elbow flexion WFL. Wrist flexion WFL. Opening and closing of hand WFL. Left Upper Extremity: Shoulder Flexion allows about 100 degrees. Shoulder abduction allows about 90 degrees. Elbow flexion WFL. Wrist flexion WFL. Opening and closing of hand WFL. Right Lower Extremity: Hip flexion unable to lift thigh while seated at EOB. Hip abduction WFL. Knee flexion 30 to 90 degrees. Ankle dorsiflexion 20 degrees to neutral. Ankle plantarflexion 20 degrees. Left Lower Extremity: Hip flexion unable to lift thigh while seated at EOB. Hip abduction WFL. Knee flexion 30 to 90 degrees. Ankle dorsiflexion 20 degrees to neutral. Ankle plantarflexion 20 degrees. Strength: Right Upper Extremity: Shoulder flexors 3-/5. Shoulder abductors 3-/5. Elbow flexors 4-/5. Elbow extensors 4-/5. Blog Writer weak but functional. Left Upper Extremity: Shoulder flexors 3-/5. Shoulder abductors 3-/5. Elbow flexors 4-/5. Elbow extensors 4-/5. Blog Writer weak but functional. Right Lower Extremity: Hip flexors 3-/5. Hip abductors 4-/5. Knee flexors 3-/5. Knee extensors 3-/5. Ankle dorsiflexors 3-/5. Ankle plantarflexors 3-/5. Left Lower Extremity: Hip flexors 3-/5. Hip abductors 4-/5. Knee flexors 3-/5. Knee extensors 3-/5. Ankle dorsiflexors 3-/5. Ankle plantarflexors 3-/5. Sensation: Intact as to pain and light pressure in B UE/LE Bed Mobility/Transfers: Supine to sit minimal assist with HOB flat Sit to stand SBA Stand to sit SBA Bed to chair SBA Chair to bed SBA Gait: Able to tolerate up to 110 feet of level surface ambulation using the FWW with SBA with increased R LE hip external rotation causing out-toeing. Stairs: Instructed patient with up and down 6 x 4 and 4X 6 inch steps while holding onto B rails with SBA and step-over step pattern. Balance: Static Sitting: Normal Dynamic Sitting: Normal Static Standing: Fair Dynamic Standing: Fair Assessment: Alton demonstrates much improved functional mobility skills with this episode of care under acute level. He will benefit from continued services under swing bed level 1 to progress bed mobility, transfers, and ambulation activity in anticipation of discharge to home with needed services. Aspiration PNA, GI bleed, hypokalemia have all been resolved per hospitalist. Patient continues to present with clinical signs and symptoms consistent with current/admitting diagnoses that have resulted to mobility limitations, gait instability, generalized weakness, and impairment of motor control as demonstrated by the following impairment level findings: 1. Continued wekaness to B UE/LE major muscle groups 2. Impaired standing balance 3. Desaturation and SOB with ambulation and stairs 4. Limitation of joint range of motion in B UE/LE Impairments are contuing to contributing to the following functional limitations: 1. Dependent bed mobility skills 2. Increased dependence with transfers 3. Inability to safely ambulate without assistive device and SBA 4. Increase completion time for mobility ADL performance 5. Increased fall risk 6. Inability to negotiate steps alone safely Patient is assessed as a 37254 moderate complexity based on the following: History: 60-year-old male with impairment level findings, functional limitations, and past medical history as indicated above Examination: Demonstrable impairment in strength, balance, and mobility level with underlying impairments and functional limitations as documented above Presentation: Stable Decision Makin high complexity Goals: Goals X1 week 1. Supine-Sit independent 2. Sit-Supine independent 3. Sit-Stand independent 4. Stand-Sit independent 5. Bed-Chair independent 6. Chair-Bed independent 7. Independent gait on level surface with use of least restrictive device for at least 300 feet without report of pain nor dyspnea 8. Independent stair negotiation while holding onto bilateral rails for at least 5 steps without report of pain nor dyspnea 9. Independent with home exercise program 10. Good static and dynamic standing balance/tolerance Plan of Care/Treatment Plan: 1-2x/day, 7 days/week x 1 week. Plan of care has been reviewed with the FOREIGN POLICY OFFICER providing the service under Physical Therapy direction. Initiate Physical Therapy intervention for strengthening, bed mobility, transfers, gait, stairs, balance training, use of assistive device. DISCHARGE RECOMMENDATIONS: Patient will benefit from home health PT services in order to progress mobility level using least restrictive assistive ambulatory device, assess home safety, identify additional equipment needs, and establish a functional maintenance program that will increase ability of patient to remain at home. Will need FWW for home. TREATMENT CODE/TIME: 22154 x 25 minutes, 24582 x 14 minutes beginning at 11:20 AM. Thank you for the opportunity to participate in the care of this patient. Sabina Kumar PT, DPT, CLT [facility] [place], [place]
--- NOTE | 2020-11-19 18:28 | NUR.NOTE ---
Nursing Note: Pt went to swing bed.
[2020-11-19] MEDS: Pantoprazole 40 MG TABCR PO (20:56)
[2020-11-19] MEDS: Midodrine 2.5 MG TAB 5 MG PO (20:56)
[2020-11-19] MEDS: Magnesium Gluconate 500 MG TAB 1000 MG PO (20:57)
[2020-11-19] MEDS: guaiFENesin 600 MG TABCR PO (20:57)
[2020-11-19] MEDS: Potassium Chloride 10 MEQ CAPCR 20 MEQ PO (20:57)
[2020-11-19] MEDS: Budesonide/Formoterol 160/4.5 6 GM 60 PUFF INH IH (20:58)
[2020-11-19 23:51] VITALS: BP 92/63; PULSE 69; RESP 18; TEMP 36.7; O2SAT 98
[2020-11-20] MEDS: Budesonide/Formoterol 160/4.5 6 GM 60 PUFF INH IH ×2 (07:38→19:56)
[2020-11-20] MEDS: Tiotropium Bromide-Respimat 10 PUFF INH IH (07:39)
[2020-11-20 07:45] VITALS: BP 97/69; PULSE 87; RESP 17; TEMP 37.2; O2SAT 97
--- NOTE | 2020-11-20 08:02 | OTIE_ITS ---
Occupational Therapy Notes Inpatient Occupational Therapy Evaluation Date: 11/20/20 Referring Doctor: Niels Frost MD OT Orders: Non-Urgent Precautions: Fall, Standard, DNR/DNI PATIENT PROFILE/ADMITTING DIAGNOSIS: Pt is a 60 year old male who was evaluated today for [facility] bed 1. He was admitted on 11/11/20 for a dx of anemia due to acute blood loss, upper GI bleeding, acute hypokalemia, hypomagnesemia, leukocytosis, urinary tract infection, jaundice and ANNALISA. Past Medical History: Medical History Abnormal abdominal CT scan Alcohol induced fatty liver Alcohol use disorder Alcohol use disorder Anemia, iron deficiency Arthritis Atherosclerosis of abdominal aorta Hopson's esophagus determined by endoscopy Barretts esophagus Bone spur of foot Chronic iron deficiency anemia COPD (chronic obstructive pulmonary disease) DDD (degenerative disc disease) Dehydration Dehydration, mild Depression Depression with anxiety Diverticulosis DNI (do not intubate) DNR (do not resuscitate) Erosive gastritis Erosive gastritis Esophageal reflux Essential tremor Fatty liver Gastroenteritis Goals of care, counseling/discussion Hematemesis Hepatitis A Hyperlipemia Hypokalemia due to excessive gastrointestinal loss of potassium Hypomagnesemia Insomnia Left knee pain LLQ abdominal pain Low back pain Lower extremity edema Nonspecific ST-T wave electrocardiographic changes Osteoarthritis (arthritis due to wear and tear of joints) Palliative care patient POLST (Physician Orders for Life-Sustaining Treatment) signed 11/12/20 Rectal polyp Smoker unmotivated to quit Suspected COVID-19 virus infection Tetrahydrocannabinol (THC) use disorder, moderate, dependence Thrombocytopenia Tobacco use disorder Transaminitis Urinary incontinence Urinary urgency (08/14/17) Surgical History History of foot surgery Hx of colonoscopy Hx of esophagogastroduodenoscopy Social History/Home Situation: Pt states that he lives about 10 minutes from his mom and sister. His mom is the caregiver for both his sister and himself. He notes that he is (I) at baseline and has a tub shower for showering routines, he states that he can perform all of his other ADLs but sometimes has difficulty getting off and on the toilet, standing in the shower and notes that he has chronic back pain and this will limit him from time to time. Equipment owned/DME: None SUBJECTIVE: Pt was lying in bed when OT arrived, he was agreeable to OT session and notes that he is tired but doing ok. He is happy with the decision to swing for rehabilitation. OBJECTIVE: General Observation: Bruising on pts (B) biceps which he notes is from his IV's, pleasant and appropriate. Mental Status: A&Ox3 Pain: 5-6/10 pain although he is unable to specify exactly where. ROM: RUE AROM WFL L UE AROM WFL STRENGTH: RUE Shoulder flexion 3-/5, bicep 3-/5, tricep 2+/5, clock repairer is less than (L) but able to clock repairer and hold in the position without pain or discomfort, wrist flexors 3/5, wrist extensors 3-/5. LUE Shouler flexion 3/5, bicep 3+/5, tricep 2+/5, clock repairer is strong (L) > (R), wrist flexors 2+/5, wrist extensors 3-/5. FUNCTIONAL MOBILITY/ADLS: Pt denies his ADLs but was able to perform functional ROM required for his ADLs for the UE. He was limited in LE ADLs due to pain he reports in his back. But is agreeable to performing his standing ADLs at next session. BALANCE: Static sitting Good Dynamic Sitting Good SPECIAL TESTS: Daily Activity Limitations Standardized Measure [facility] AM -PAC ?6 clicks? Daily Activity Inpatient Short Form: Raw score: 19 Standardized score: 40.22 CMS score: 42.80% INFORMED CONSENT/EDUCATION: Pt instructed in purpose of OT Consult and plan of care. ASSESSMENT: Patient is a 60-year-old male referred to occupational therapy services with diagnosis of anemia due to acute blood loss, upper GI bleeding, acute hypokalemia, hypomagnesemia, leukocytosis, urinary tract infection, jaundice and ANNALISA. Patient presents with clinical signs and symptoms consistent with dx, as demonstrated by the following impairment level findings/ functional limitations: Impairments in ADL/IADL and leisure activities, decreased LE dressing and bathing, decreased functional activity tolerance, decreased functional mobility required for ADLs. [facility] score 19 Patient is assessed as a Moderate 83145 complexity based on the following: History: see above Examination: see functional limitations as noted above Presentation: evolving Decision Making: DASH indicating a 42.80% GOALS Goals x1 week 1. Transfers with (S) 2. Dressing sitting in chair (I) UE and mod (I) LE 3. Bathing sitting position (I) UE/LE 4. Toileting on toilet (I) 5. Eating (I) PLAN OF CARE/TREATMENT PLAN: 1x/day, 5 days/ week x 1week Initiate Occupational Therapy Services for bathing, dressing, grooming, toileting, eating, transfer training. DISCHARGE RECOMMENDATIONS OT recommends that pt have HH services when medically cleared per MD. Other DME recommendations include- A shower bench that sits inside his tub shower for increased safety and d ecreased functional activity tolerance. Grab bars for his bathroom for support and stability A raised toilet seat for increased safety with toileting routine TREATMENT TIME/MINUTES/CODES 99685, 20 minutes (07:15) Yvonne Jacobsen OTR/L [facility]
[2020-11-20] MEDS: Protein Nutritional Supplement 16 GM 1 OUNCE PACKET PO ×3 (08:57→19:56)
[2020-11-20] MEDS: Lactulose 20 GM/30 ML CUP PO ×2 (08:57→19:56)
[2020-11-20] MEDS: Multivitamin TAB 1 TAB PO (08:58)
[2020-11-20] MEDS: Thiamine 100 MG TAB PO (08:58)
[2020-11-20] MEDS: Magnesium Gluconate 500 MG TAB 1000 MG PO ×2 (08:58→19:55)
[2020-11-20] MEDS: Pantoprazole 40 MG TABCR PO ×2 (08:58→19:55)
[2020-11-20] MEDS: guaiFENesin 600 MG TABCR PO ×2 (08:58→19:55)
[2020-11-20] MEDS: Tamsulosin 0.4 MG CAPCR PO (08:59)
[2020-11-20] MEDS: Midodrine 2.5 MG TAB 5 MG PO ×2 (08:59→19:55)
[2020-11-20] MEDS: Folic Acid 1 MG TAB PO (08:59)
[2020-11-20] MEDS: Furosemide 20 MG TAB PO ×2 (08:59→15:33)
[2020-11-20] MEDS: Sucralfate 1 GM TAB PO ×4 (08:59→21:55)
[2020-11-20] MEDS: Spironolactone 25 MG TAB PO (08:59)
[2020-11-20] MEDS: Potassium Chloride 10 MEQ CAPCR 20 MEQ PO ×2 (08:59→19:55)
--- NOTE | 2020-11-20 09:09 | PT.INTREAT ---
Date of service: 11/20/20 Time of Service: 07:50 PT Notes Visit Reasons: DECONDITIONING,AMBULATORY DYSFUNCTION Inpatient Physical Therapy Treatment Note [facility] Date: 11/20/2020 PRECAUTIONS: Fall SUBJECTIVE: Alton is pleasant and agreeable to participating in PT. He reports that he has an upset stomach this morning. OBJECTIVE: PAIN: Patient c/o back pain, which he reports is his baseline BED MOBILITY/TRANSFERS Supine-sit: S with HOB at 20 degrees Sit-supine: S with HOB flat in a.m.; CGA with HOB flat in p.m. in a.m.; 150' p.m. Sit-stand: SBA Stand-sit: SBA Bed-Chair: [] Chair-bed: [] GAIT Assistive Device: FWW Weight bearing: Full Assist: SBA Distance: 110' + 200' + 30' in a.m.; 150' in p.m. Deviation: R hip ER and R foot deviation, increased SOB THEREX: Patient was instructed in a resisted upper extremity strengthening program in a long-sitting position in a.m., and in a lower extremity and resisted upper extremity strengthening program performed in a standing position in p.m., as per flow sheet. ASSESSMENT: Patient tolerated session well, he was able to tolerate a progression in gait distance with FWW support and SBA. He continues to demonstrate significant SOB with activity, requiring seated rest between each activity. He would benefit from continued gait training with least restrictive device and global strengthening for improved mobility and activity tolerance. PLAN: Continue with global strengthening and gait training for improved mobility and activity tolerance TREATMENT CODE/TIME: Session 1: 45 minutes; 13421 x2, 41027 Session 2: 30 minutes; 19236, [id number]
[2020-11-20] MEDS: Bacitracin 1 PACKET TP (11:22)
[2020-11-20 16:57] VITALS: BP 100/69; PULSE 86; RESP 18; TEMP 37.3; O2SAT 99
[2020-11-20 19:51] VITALS: BP 97/63; PULSE 91; RESP 18; TEMP 37.4; O2SAT 93
[2020-11-21 03:26] VITALS: BP 103/67; PULSE 86; RESP 17; TEMP 36.3; O2SAT 95
[2020-11-21] MEDS: Pantoprazole 40 MG TABCR PO ×2 (07:50→19:51)
[2020-11-21] MEDS: Sucralfate 1 GM TAB PO ×4 (07:50→21:35)
[2020-11-21 08:15] VITALS: BP 99/67; PULSE 83; RESP 22; TEMP 37; O2SAT 91
--- NOTE | 2020-11-21 09:28 | PT.INTREAT ---
Date of service: 11/21/20 Time of Service: 09:00 PT Notes Visit Reasons: DECONDITIONING,AMBULATORY DYSFUNCTION Inpatient Physical Therapy Treatment Note [facility] Date: 11/21/2020 PRECAUTIONS: Fall SUBJECTIVE: Alton continues to report lack of sleep. He states that he is in a foul mood this morning because he is so tired. He is pleasant though, and agrees to do what he can for PT this morning. OBJECTIVE: PAIN: Patient c/o B LE pain in the groin area with gait training and ther ex BED MOBILITY/TRANSFERS Supine-sit: I with HOB flat Sit-supine: Sit-stand: S Stand-sit: S GAIT Assistive Device: FWW Weight bearing: Full Assist: SBA Distance: 100' + 10' Deviation: R hip ER and R foot deviation, increased SOB, B LE pain in groin THEREX: Patient was instructed in a lower extremity and resisted upper extremity strengthening program in a supine position, as per flow sheet. He was able to tolerate a progression in UE exercises, tolerating increased reps. ASSESSMENT: Patient tolerated session with SOB with activity, requiring rests between each exercise and following gait training. He also continued to complain of significant fatigue and groin pain, bilaterally, which may be affecting his activity tolerance and willingness to participate in and progress his activities with PT. He would benefit from continued gait training with least restrictive device and global strengthening for improved mobility and activity tolerance. PLAN: Continue with global strengthening and gait training for improved mobility and activity tolerance TREATMENT CODE/TIME: 25 minutes; 01709, [id number]
[2020-11-21] MEDS: Budesonide/Formoterol 160/4.5 6 GM 60 PUFF INH IH ×2 (09:30→19:50)
[2020-11-21] MEDS: Tiotropium Bromide-Respimat 10 PUFF INH IH (09:31)
[2020-11-21] MEDS: Lactulose 20 GM/30 ML CUP PO ×2 (09:46→19:51)
[2020-11-21] MEDS: Protein Nutritional Supplement 16 GM 1 OUNCE PACKET PO ×3 (09:46→19:51)
[2020-11-21] MEDS: Spironolactone 25 MG TAB PO (09:47)
[2020-11-21] MEDS: guaiFENesin 600 MG TABCR PO ×2 (09:48→19:51)
[2020-11-21] MEDS: Thiamine 100 MG TAB PO (09:48)
[2020-11-21] MEDS: Magnesium Gluconate 500 MG TAB 1000 MG PO ×2 (09:49→19:51)
[2020-11-21] MEDS: Tamsulosin 0.4 MG CAPCR PO (09:49)
[2020-11-21] MEDS: Folic Acid 1 MG TAB PO (09:49)
[2020-11-21] MEDS: Furosemide 20 MG TAB PO ×2 (09:49→15:08)
[2020-11-21] MEDS: Potassium Chloride 10 MEQ CAPCR 20 MEQ PO ×2 (09:50→19:51)
[2020-11-21] MEDS: Multivitamin TAB 1 TAB PO (09:50)
--- NOTE | 2020-11-21 10:14 | PHA.REVIEW ---
Pharmacy Admission Review - Admission Clinical Review (Last Updated 11/19/20 @ 19:06 by Niels Frost) Ascites of liver (Acute) POLST (Physician Orders for Life-Sustaining Treatment) (Acute) Discharge planning issues (Acute) Erosive gastritis (Acute) Alcohol use disorder (Acute) No Known Allergies Allergy (Verified 11/11/20 12:09) Height 5 ft 10.08 in Weight 61.7 kg - Renal Dosing Medications needing adjustments: Reviewed (crcl ~87ml/min) - Anticoagulation DVT Prohphylaxis: N/A Therapeutic Anticoagulation: N/A - Opiate Usage Evaluate Pain Scale/Pains Meds: N/A - Relevant Labs Electrolytes, C-Reactive P, ESR: N/A (labs to be ordered for tomorrow) - DM Control Insulin Dosing: N/A - Heart Failure/ID EF%, LEW's, B-Blockers, Diuretics: N/A - BP Control BP Control: Blood Pressure 99/67 Blood Pressure 103/67 If elevated: N/A - Home Meds Home Med List reviewed: Reviewed (mirtazepine, gabapentin (both have not been ordered since admission) H&P stated he had not been taking his meds for 2 wks prior to admission) - Current meds Current Medication Order Review: Reviewed - Comments Comments/Follow Ups: no pain reported,
[2020-11-21] MEDS: Midodrine 2.5 MG TAB 5 MG PO ×2 (12:03→19:51)
[2020-11-21] MEDS: Acetaminophen 325 MG TAB PO (15:08)
[2020-11-21 15:21] VITALS: BP 91/59; PULSE 91; RESP 18; TEMP 37.4; O2SAT 93
[2020-11-21 19:47] VITALS: BP 94/67; PULSE 62; RESP 18; TEMP 37.3; O2SAT 93
[2020-11-22 01:01] VITALS: BP 108/70; PULSE 86; RESP 18; TEMP 37.2; O2SAT 93
[2020-11-22 07:01] LABS: Abs Immature Grans 0.05 10^3/uL (0.0-0.06); Absolute Basophil Count 0.01 10^3/uL (0.0-0.2); Absolute Lymphocyte Count 1.18 10^3/uL (1.2-3.4); Absolute Monocyte Count 1.15 10^3/uL (0.1-0.8); Absolute Neutrophil Count 10.42 10^3/uL (1.2-6.7); Basophils % 0.1; Eosinophils % 0.5; HCT 30.3 % (40.0-50.0); HGB 9.8 g/dL (13.5-17.5); Immature Grans % 0.4; Lymphocytes % 9.2; MCHC 32.3 % (32.0-36.0); MCV 92.7 fL (80-95); MPV 9.9 fL (8.0-11.0); Monocytes % 8.9; Neutrophils % 80.9; Nucleated RBC 0 %; Platelet Count 161 10^3/uL (130-400); RBC 3.27 10^6/uL (4.36-5.78); RDW 22.6 % (11.8-14.1); RDW-SD 73.9 fL; WBC 12.88 10^3/uL (4.4-10.8)
[2020-11-22 07:02] LABS: Absolute Eosinophil Count 0.06 10^3/uL (0.0-0.7)
[2020-11-22 07:19] LABS: Anion Gap 8.3 mmol/L (3-11); BUN 9 mg/dL (7-18); CO2 26.7 mmol/L (21.0-32.0); Calcium 7.7 mg/dL (8.5-10.1); Chloride 103 mmol/L (98-107); Glucose 97 mg/dL (74-106); Magnesium 1.1 mg/dL (1.8-2.4); Sodium 138 mmol/L (136-145)
[2020-11-22 07:30] LABS: CREATININE 0.45 mg/dL (0.70-1.30)
[2020-11-22 07:39] LABS: Anisocytosis 2+; Diff Comment RBC Morph Reviewed; Polychromasia Present; Target Cells 2+
[2020-11-22] MEDS: Tiotropium Bromide-Respimat 10 PUFF INH IH (07:53)
[2020-11-22] MEDS: Budesonide/Formoterol 160/4.5 6 GM 60 PUFF INH IH ×2 (07:54→20:21)
[2020-11-22 08:05] VITALS: BP 99/69; PULSE 87; RESP 23; TEMP 37; O2SAT 95
[2020-11-22] MEDS: Lactulose 20 GM/30 ML CUP PO ×2 (08:21→20:22)
[2020-11-22] MEDS: Protein Nutritional Supplement 16 GM 1 OUNCE PACKET PO ×2 (08:21→20:22)
[2020-11-22] MEDS: Multivitamin TAB 1 TAB PO (08:21)
[2020-11-22] MEDS: Potassium Chloride 10 MEQ CAPCR 20 MEQ PO ×2 (08:21→20:23)
[2020-11-22] MEDS: Thiamine 100 MG TAB PO (08:22)
[2020-11-22] MEDS: Folic Acid 1 MG TAB PO (08:22)
[2020-11-22] MEDS: Sucralfate 1 GM TAB PO ×4 (08:22→21:35)
[2020-11-22] MEDS: Midodrine 2.5 MG TAB 5 MG PO ×2 (08:22→20:22)
[2020-11-22] MEDS: Spironolactone 25 MG TAB PO (08:22)
[2020-11-22] MEDS: Magnesium Gluconate 500 MG TAB 1000 MG PO (08:27)
--- NOTE | 2020-11-22 13:36 | PT.INTREAT ---
Date of service: 11/22/20 Time of Service: 13:10 PT Notes Visit Reasons: DECONDITIONING,AMBULATORY DYSFUNCTION Inpatient Physical Therapy Treatment Note [facility] Date: 11/22/2020 PRECAUTIONS: Fall SUBJECTIVE: Alton continues to report lack of sleep. He states that he continues to feel sick to his stomach. OBJECTIVE: PAIN: No c/o pain BED MOBILITY/TRANSFERS Supine-sit: I with HOB flat Sit-supine: I with HOB flat Sit-stand: S Stand-sit: S GAIT Assistive Device: FWW Weight bearing: Full Assist: S Distance: 30' Deviation: R hip ER and R foot deviation, increased SOB THEREX: Patient was instructed in a lower extremity and resisted upper extremity strengthening program in a supine position, as per flow sheet. ASSESSMENT: Patient tolerated session with SOB with activity, requiring rests between each exercise and following gait training. He also continued to complain of significant fatigue and upset stomach, which may be affecting his activity tolerance and willingness to participate in and progress his activities with PT. He would benefit from continued gait training with least restrictive device and global strengthening for improved mobility and activity tolerance. PLAN: Continue with global strengthening and gait training for improved mobility and activity tolerance TREATMENT CODE/TIME: 20 minutes; [id number]
[2020-11-22 15:30] VITALS: BP 104/70; PULSE 92; RESP 21; TEMP 37.2; O2SAT 93
[2020-11-22] MEDS: Amoxicillin 875/Clav. 125 TAB PO ×2 (15:59→21:35)
[2020-11-22] MEDS: MAGNESIUM SULFATE 2 GM/50 ML BAG IVPB ×2 (15:59→21:33)
[2020-11-22] MEDS: Furosemide 20 MG TAB PO (15:59)
[2020-11-22] MEDS: guaiFENesin 600 MG TABCR PO (20:22)
[2020-11-22] MEDS: Pantoprazole 40 MG TABCR PO (20:22)
[2020-11-22] MEDS: Magnesium Oxide 400 MG TAB PO (20:23)
[2020-11-22 20:36] VITALS: BP 108/75; PULSE 94; RESP 18; TEMP 36.9; O2SAT 92
[2020-11-22] MEDS: Normal Saline Flush 10 ML SYR IVP (21:35)
[2020-11-23 06:56] LABS: Abs Immature Grans 0.04 10^3/uL (0.0-0.06); Absolute Basophil Count 0.01 10^3/uL (0.0-0.2); Absolute Eosinophil Count 0.06 10^3/uL (0.0-0.7); Absolute Lymphocyte Count 0.91 10^3/uL (1.2-3.4); Absolute Monocyte Count 1.11 10^3/uL (0.1-0.8); Absolute Neutrophil Count 11.86 10^3/uL (1.2-6.7); Basophils % 0.1; Eosinophils % 0.4; HCT 29.4 % (40.0-50.0); HGB 9.7 g/dL (13.5-17.5); Immature Grans % 0.3; Lymphocytes % 6.5; MCH 30.4 pg (27.0-33.0); MCV 92.2 fL (80-95); MPV 9.9 fL (8.0-11.0); Monocytes % 7.9; Neutrophils % 84.8; Nucleated RBC 0 %; Platelet Count 155 10^3/uL (130-400); RBC 3.19 10^6/uL (4.36-5.78); RDW 22.2 % (11.8-14.1); RDW-SD 72.6 fL; WBC 13.99 10^3/uL (4.4-10.8)
[2020-11-23 07:10] LABS: Reticulocyte 2.1 % (0.5-2.4)
[2020-11-23 07:18] LABS: Anion Gap 6.9 mmol/L (3-11); BUN 7 mg/dL (7-18); CO2 27.1 mmol/L (21.0-32.0); Calcium 7.6 mg/dL (8.5-10.1); Chloride 104 mmol/L (98-107); Ferritin 33 ng/mL (26-388); Glucose 107 mg/dL (74-106); Magnesium 1.6 mg/dL (1.8-2.4); Sodium 138 mmol/L (136-145)
[2020-11-23 07:23] LABS: Iron 34 ug/dL (65-175); Total Iron Binding Capacity 161 ug/dL (250-450); Transferrin Sat 21 % (20-55)
[2020-11-23 08:23] VITALS: BP 107/53; PULSE 93; RESP 17; TEMP 37; O2SAT 93
[2020-11-23] MEDS: Budesonide/Formoterol 160/4.5 6 GM 60 PUFF INH IH (08:23)
[2020-11-23] MEDS: Tiotropium Bromide-Respimat 10 PUFF INH IH (08:24)
[2020-11-23] MEDS: Protein Nutritional Supplement 16 GM 1 OUNCE PACKET PO (08:38)
[2020-11-23] MEDS: Sucralfate 1 GM TAB PO (08:38)
[2020-11-23] MEDS: Potassium Chloride 10 MEQ CAPCR 20 MEQ PO (08:38)
[2020-11-23] MEDS: Thiamine 100 MG TAB PO (08:38)
[2020-11-23] MEDS: Midodrine 2.5 MG TAB 5 MG PO (08:38)
[2020-11-23] MEDS: Folic Acid 1 MG TAB PO (08:38)
[2020-11-23] MEDS: Multivitamin TAB 1 TAB PO (08:38)
[2020-11-23] MEDS: guaiFENesin 600 MG TABCR PO (08:38)
[2020-11-23] MEDS: Lactulose 20 GM/30 ML CUP PO (08:38)
[2020-11-23] MEDS: Amoxicillin 875/Clav. 125 TAB PO (08:38)
[2020-11-23] MEDS: Tamsulosin 0.4 MG CAPCR PO (08:39)
[2020-11-23] MEDS: Magnesium Oxide 400 MG TAB PO (08:39)
[2020-11-23] MEDS: Pantoprazole 40 MG TABCR PO (08:39)
[2020-11-23] MEDS: Spironolactone 25 MG TAB PO (08:39)
[2020-11-23] MEDS: Furosemide 20 MG TAB PO (08:39)
--- NOTE | 2020-11-23 09:22 | OT.INNT ---
Date of service: 11/23/20 Time of Service: 09:15 Occupational Therapy Notes 11/23/20 OT attempted to see pt 2x this morning, both attempts pt refused care. Yvonne Jacobsen OTR/[facility]
--- NOTE | 2020-11-23 09:41 | DI.RAD_ITS ---
EXAM: XR PORTABLE CHEST AP CLINICAL HISTORY: pneumonia, leukocytosis TECHNIQUE: 2D digital imaging was performed. COMPARISON: CR XR PORTABLE CHEST AP from 11/13/2020 FINDINGS: MEDIASTINUM: Normal. HEART: Normal. PULMONARY VASCULATURE: Normal. LUNGS: There is an infiltrate seen in the right lung base. Interval improvement of the left basilar infiltrate and left pleural effusion. PLEURAL SPACE: No pleural effusion or pneumothorax. BONE:Within normal limits for the patient's age. OTHER FINDINGS:Low lung volumes. IMPRESSION: 1. Right basilar infiltrate which may represent atelectasis or pneumonia. 2. Interval improvement of the left basilar infiltrate and left pleural effusion. DATA REPOSITORY: RADIATION DOSE DELIVERED:
[2020-11-23] MEDS: Normal Saline Flush 10 ML SYR IVP (10:15)
[2020-11-23] MEDS: POTASSIUM CHLORIDE 10 MEQ/100 ML BAG 100 MEQ IVPB ×2 (10:15→12:18)
--- NOTE | 2020-11-23 10:32 | INDS_ITS ---
Date of service: 11/23/20 Time of Service: 10:32 PT Notes Visit Reasons: DECONDITIONING,AMBULATORY DYSFUNCTION Physical Therapy Inpatient Discharge Summary Date: 11/23/2020 Dates of service: 11/19/2020 through 11/23/2020 Referring Doctor: Niels Frost MD PT Orders: PT CONSULT: Extendeden stay weakness Precautions: Fall. Standard. Activity as tolerated. Patient Profile/Admitting Diagnosis: Per care management, Alton reconverts back to level of care from swing bed level 1 as of today, 11/23/2020. He will be re-evaluated for continued PT services as soon as another referral is received from hospitalist. Alton is a 60-year-old male with past medical history significant for EtOH abuse and COPD who presented to the ED via EMS on 11/11/2019 with generalized weakness, confusion, increased urinary frequency, medication noncompliance, difficulty with ambulation, and bilateral leg swelling. He was found at home by his mother with altered mental status and generalized weakness. He is diagnosed with anemia due to acute blood loss, upper GI bleeding, acute hypokalemia, hypomagnesemia, leukocytosis, urinary tract infection, jaundice, and acute kidney injury. Aspiration PNA, GI bleed, hypokalemia have all been resolved per hospitalist. PMHX: Medical History (Updated 11/11/20 @ 16:48 by Laila Ontiveros MD) Abnormal abdominal CT scan Alcohol induced fatty liver Alcohol use disorder Alcohol use disorder Anemia, iron deficiency Arthritis Atherosclerosis of abdominal aorta Hopson's esophagus determined by endoscopy Barretts esophagus Bone spur of foot Chronic iron deficiency anemia COPD (chronic obstructive pulmonary disease) DDD (degenerative disc disease) Dehydration Dehydration, mild Depression Depression with anxiety Diverticulosis Erosive gastritis Erosive gastritis Esophageal reflux Essential tremor Fatty liver Gastroenteritis Hematemesis Hepatitis A Hyperlipemia Hypokalemia due to excessive gastrointestinal loss of potassium Hypomagnesemia Insomnia Left knee pain LLQ abdominal pain Low back pain Lower extremity edema Nonspecific ST-T wave electrocardiographic changes Osteoarthritis (arthritis due to wear and tear of joints) Rectal polyp Smoker unmotivated to quit Suspected COVID-19 virus infection Tetrahydrocannabinol (THC) use disorder, moderate, dependence Thrombocytopenia Tobacco use disorder Transaminitis Urinary incontinence Urinary urgency (08/14/17) Surgical History History of foot surgery Hx of colonoscopy Hx of esophagogastroduodenoscopy Social History/Home Situation: Lives alone in a private home in [place] with 3 steps with the rails to enter. Not fully able to get a reliable history due to persistent somnolence. Equipment Owned/DME: None Subjective: Understands goals set with PT to go home safely. Agreeable to be seen between 11-12 am and 2-3 PM everyday for his therapy sessions. Continues to report fatigue with activity. Objective: General Observation: Supine in bed. Swelling noted in B proximal and mid thighs with beginning fibrosis. Mental Status: Alert and oriented. Pain: None reported. ROM: Right Upper Extremity: Shoulder Flexion allows about 100 degrees. Shoulder abduction allows about 90 degrees. Elbow flexion WFL. Wrist flexion WFL. Opening and closing of hand WFL. Left Upper Extremity: Shoulder Flexion allows about 100 degrees. Shoulder abduction allows about 90 degrees. Elbow flexion WFL. Wrist flexion WFL. Opening and closing of hand WFL. Right Lower Extremity: Hip flexion unable to lift thigh while seated at EOB. Hip abduction WFL. Knee flexion 30 to 90 degrees. Ankle dorsiflexion 20 degrees to neutral. Ankle plantarflexion 20 degrees. Left Lower Extremity: Hip flexion unable to lift thigh while seated at EOB. Hip abduction WFL. Knee flexion 30 to 90 degrees. Ankle dorsiflexion 20 degrees to neutral. Ankle plantarflexion 20 degrees. Strength: Right Upper Extremity: Shoulder flexors 3-/5. Shoulder abductors 3-/5. Elbow flexors 4-/5. Elbow extensors 4-/5. Land Acquisition Manager weak but functional. Left Upper Extremity: Shoulder flexors 3-/5. Shoulder abductors 3-/5. Elbow flexors 4-/5. Elbow extensors 4-/5. Land Acquisition Manager weak but functional. Right Lower Extremity: Hip flexors 3-/5. Hip abductors 4-/5. Knee flexors 3-/5. Knee extensors 3-/5. Ankle dorsiflexors 3-/5. Ankle plantarflexors 3-/5. Left Lower Extremity: Hip flexors 3-/5. Hip abductors 4-/5. Knee flexors 3-/5. Knee extensors 3-/5. Ankle dorsiflexors 3-/5. Ankle plantarflexors 3-/5. Sensation: Intact as to pain and light pressure in B UE/LE Bed Mobility/Transfers: Supine to sit hand held assist Sit to stand supervision Stand to sit supervision Bed to chair supervision Chair to bed supervision Gait: Able to tolerate up to 200 feet of level surface ambulation using the FWW with SBA with increased R LE hip external rotation causing out-toeing. Requires 3-4 standing rests due to fatigue. Stairs: Able to manage up and down 6 x 4 and 4X 6 inch steps while holding onto B rails with SBA and step-over step pattern. Balance: Static Sitting: Normal Dynamic Sitting: Normal Static Standing: Fair Dynamic Standing: Fair Assessment: Per CM, patient is planned to convert back to acute level of care today due to decline in medical condition. Alton continues to demonstrate impairment in functional mobility skills requiring the use of a front wheeled walker and standby assist of another. He will benefit from continued services under acute level of care to progress bed mobility, transfers, and ambulation activity in anticipation of discharge to home with needed services. Aspiration PNA, GI bleed, hypokalemia have all been resolved per hospitalist. Patient continues to present with clinical signs and symptoms consistent with current/admitting diagnoses that have resulted to mobility limitations, gait instability, generalized weakness, and impairment of motor control as demonstrated by the following impairment level findings: 1. Continued wekaness to B UE/LE major muscle groups 2. Impaired standing balance 3. Desaturation and SOB with ambulation and stairs 4. Limitation of joint range of motion in B UE/LE Impairments are continuing to contributing to the following functional limitations: 1. Dependent bed mobility skills 2. Increased dependence with transfers 3. Inability to safely ambulate without assistive device and SBA 4. Increase completion time for mobility ADL performance 5. Increased fall risk 6. Inability to negotiate steps alone safely Goals: Goals X1 week 1. Supine-Sit independent NOT MET 2. Sit-Supine independent NOT MET 3. Sit-Stand independent NOT MET 4. Stand-Sit independent NOT MET 5. Bed-Chair independent NOT MET 6. Chair-Bed independent NOT MET 7. Independent gait on level surface with use of least restrictive device for at least 300 feet without report of pain nor dyspnea NOT MET 8. Independent stair negotiation while holding onto bilateral rails for at least 5 steps without report of pain nor dyspnea NOT MET 9. Independent with home exercise program NOT MET 10. Good static and dynamic standing balance/tolerance NOT MET DISCHARGE RECOMMENDATIONS: Patient will benefit from home health PT services in order to progress mobility level using least restrictive assistive ambulatory device, assess home safety, identify additional equipment needs, and establish a functional maintenance program that will increase ability of patient to remain at home. Will need FWW for home. TREATMENT CODE/TIME:26626 x 38 minutes beginning at 10:32 AM. Thank you for the opportunity to participate in the care of this patient. Sabina Kumar PT, DPT, CLT [facility] [place], [place]
--- NOTE | 2020-11-23 11:57 | W.NUTRFU ---
Date of service: 11/23/20 Time of Service: 11:57 Nutritional Follow up NOTE: Alton continues to meet nutrient needs by following heart healthy diet. Has gained 10 lbs since admit. Refusing ensure clears TID,however is completing most meals as evidenced by weight gain. BMI > 19. Will continue to encourage po intake to meet nutrient needs and for slow weight gain. Time Spent in Nutritional Counseling and Treatment: 10
--- NOTE | 2020-11-23 13:30 | CMPROGNOTE_ITS ---
- If Service Date Differs Date of service: 11/23/20 Time of Service: 13:34 Care Management Progress Note S/O: Alton will be changed back to acute status today. Alton has been c/o not feeling well this weekend. His WBC has increased from 12.88 to 13.99 and a chest xray and urinalysis have been ordered. He is afebrile and his vital signs remain stable. A: Alton is a 60 year old man admitted from [facility] to acute today for further medical workup. He originally was admitted to [facility] on 11/11/19 with ANNALISA, hypokalemia. P: Alton will likely return to -1 status to continue rehab once he is medically cleared. He will work with PT to improve strength and balcance before returning home with services for RN<OT<PT<TRAV[employer]SEMBLER. [facility] his family and any discharge planning considerations.
[2020-11-23 16:31] VITALS: BP 116/68; PULSE 118; RESP 16; TEMP 38; O2SAT 92
[2020-11-23] MEDS: Acetaminophen 325 MG TAB PO (18:06)
[2020-11-23 19:45] VITALS: BP 105/68; PULSE 108; RESP 21; TEMP 36.8; O2SAT 93
[2020-11-23 23:26] VITALS: BP 104/62; PULSE 101; RESP 20; TEMP 37.5; O2SAT 93
[2020-11-24 05:53] LABS: Bilirubin Small (Negative); Blood Negative (Negative); Clarity Clear (Clear); Glucose Negative (Negative); Ketones Trace mg/dL (Negative); Leukocyte Esterase Negative (Negative); Nitrite Negative (Negative); Specific Gravity 1.025 (1.005-1.025); Urobilinogen 0.2 EU/dL (Up TO 0.2)
[2020-11-24 07:17] VITALS: BP 100/62; PULSE 95; RESP 18; TEMP 37.4; O2SAT 92
--- NOTE | 2020-11-24 08:57 | NT_ITS ---
Date of service: 11/24/20 Time of Service: 08:57 Occupational Therapy Notes 11/24/20 Pt transitioned back to acute level of care based on a decline in medical status from [facility] [place] B1 level of care. OT will need a new order when MD feels that pt is appropriate for continued skilled OT services. Yvonne Jacobsen, OTR/[facility]
--- NOTE | 2020-11-24 09:00 | NUR.NOTE ---
Nursing Note: When changing pt at 08:45, this RN observed redness on the sacrum; the sacral mepilex was replaced. There was mottled, bright red coloration on the anus, scrotum, and penis; a barrier cream was applied. The scrotum and penis are also slightly swollen.
--- NOTE | 2020-11-24 12:01 | DSE_ITS ---
Date of service: 11/24/20 Time of Service: 12:01 DS: Diagnosis Discharge Diagnosis (1) Ambulatory dysfunction: Status: Chronic (2) COPD (chronic obstructive pulmonary disease): Status: Chronic (3) Ascites of liver: Status: Acute (4) Barretts esophagus: Status: Chronic (5) Erosive gastritis: Status: Acute (6) Anemia, iron deficiency: Status: Chronic (7) Hypomagnesemia: Status: Chronic (8) Alcohol use disorder: Status: Acute (9) POLST (Physician Orders for Life-Sustaining Treatment): Status: Acute (10) Discharge planning issues: Status: Acute Discharge Plan Disposition Patient Disposition: [facility] INPATIENT Condition: Fair Discharge Details Reason For Visit: DECONDITIONING, AMBULATORY DYSFUNCTION Admit Date/Time: 11/19/20 14:02 Admit Provider: Niels Frost Attending Provider: Niels Frost Primary Care Provider: Jonathan Black [facility] Hospital Course: 60-year-old male with history of COPD and alcoholic cirrhosis c omplicated by encephalopathy and coagulopathy who was recently hospitalized from November 11, 2020 through November 19, 2020 for recurrent upper GI bleeding presumptively from his erosive esophagitis and gastritis. He had had previous endoscopy in February 2020 but during this most recent hospitalization surgery declined to perform repeat EGD. He was resuscitated with IV fluids and transfusion of 2 units of packed red blood cells and placed on IV Protonix and subsequently switched to oral Protonix and oral Carafate. His hospitalization was complicated by aspiration pneumonia which was treated for 5 days with Zosyn and prednisone along with aerosolized bronchodilators. He has developed ascites and pleural effusions which are currently being treated with spironolactone and Lasix. He has had recurrent hypokalemia and hypomagnesemia which is required both IV and oral replacement. During his acute hospital stay physical therapy saw him and patient responded well to treatment but still had residual weakness due to his acute illness and chronic malnutrition. He was admitted to the swing bed status on 11/19/2020 for further physical therapy to improve his gait and ambulation and strength. He still requires periodic monitoring of his CBC and BMP and magnesium levels. From a respiratory standpoint he had done quite well and not requiring any supplemental oxygen. His acute kidney injury which he had on admission resolved. His GI bleeding stopped and his hemoglobin has remained stable at around 10 g. During his acute hospitalization his WBC count improved to 11.74; down from 15.54. However, it did not resolve and began to increase; up to 13.99 on day of this discharge and return to acute status. He did have a fever of 38 on the night of 11/23/2020. A CXR showed Right basilar infiltrate which may represent atelectasis or pneumonia and interval improvement of the left basilar infiltrate and left pleural effusion. His UA was unremarkable. He denied only a very slight, intermittent cough/no sputum. No chilss, dysuria. No abd pain, N/V. No rashes or lesions. He was started on Augmentin initially while still swingbed status. He will be readmitted under an acute care stay and changed to cefepime and further evaluation for a cause of the fever and leukocytosis. Home Meds and New Rx's Prescriptions: No Action mirtazapine 30 mg tablet 30 mg PO QHS Qty: 90 RF: 1 albuterol sulfate 90 mcg/actuation HFA aerosol inhaler 2 puff INHALATION Q4H PRN (Reason: bronchospasm) Qty: 18 RF: 12 ondansetron HCl [Zofran] 4 mg tablet 4 mg PO Q6H PRN (Reason: nausea and vomiting) Qty: 30 RF: 0 furosemide 20 mg tablet 20 mg PO DAILY Qty: 90 RF: 1 pantoprazole [Protonix] 40 mg tablet,delayed release (DR/EC) 40 mg PO BID Qty: 180 RF: 3 thiamine HCl (vitamin B1) 100 mg tablet 100 mg PO DAILY Qty: 90 RF: 3 blister packed meds PO RF: 0 Spiriva with HandiHaler 18 mcg capsule, w/inhalation device 1 cap INHALATION DAILY Qty: 60 RF: 3 gabapentin 300 mg capsule 300 mg PO HS Qty: 30 RF: 11 magnesium oxide 400 mg (241.3 mg magnesium) tablet 400 mg PO BID@1000,2000 Qty: 60 RF: 11 (DME) diaper,brief,adult,disposable Misc See Rx Instructions .ROUTE .MEDSUPPLY Qty: 14 RF: 0 Therapeutic-M 1 TAB tablet 1 tab PO DAILY Qty: 30 RF: 0 Discharge Instructions Activity:: Activity as Tolerated Equipment/Supplies:: No Equipment Needed Diet:: heart healthy Discharge Data Discharge Date/Time-TO BE ENTERED AT DEPARTURE: 11/24/20 11:00 DS: Summary Status at Discharge Functional status at discharge: uses cane/walker Overall status at discharge: patient is not back to baseline Mental Status: mental status grossly normal Speech and Movement: speech and movement normal Mood: euthymic mood Affect: blunted Exam Const General: cooperative and no acute distress Nutritional Appearance: thin and underweight Orientation: alert, oriented to person and oriented to place HENWV Head: normocephalic and atraumatic Resp Effort & Inspection: normal respiratory effort Auscultation: clear to auscultation bilaterally Cardio Rate: regular rate Rhythm: regular rhythm Heart Sounds: S1 normal and S2 normal GI Inspection: distended Palpation: soft and nontender Auscultation: hyperactive bowel sounds Skin General skin exam: no rashes or lesions noted Extrem General: no pedal edema and no calf tenderness Psych Mental Status: mental status grossly normal Speech and Movement: speech and movement normal Mood: euthymic mood Affect: blunted DS: Data Vitals/I&O Vitals and I&O: Vital Signs Temperature 37.4 C 11/24/20 07:17 Temperature Source Temporal Artery Scan 11/24/20 07:17 Pulse 95 H 11/24/20 07:17 Pulse Rhythm Regular 11/24/20 07:37 Respiratory Rate 18 11/24/20 07:17 Respiratory Effort Non-Labored 11/24/20 07:37 Respiratory Depth Normal 11/24/20 07:37 Respiratory Pattern Normal 11/24/20 07:37 Blood Pressure 100/62 11/24/20 07:17 Pulse Oximetry 92 11/24/20 07:17 Oxygen Delivery Method Room Air 11/24/20 07:17 Oxygen Flow Rate 0 11/24/20 07:17 Pain Level 0 11/24/20 07:17 Comment 11/23/20 16:31 Intake & Output 11/23/20 11/24/20 11/24/20 23:59 11:59 23:59 Intake Total 360 / 650 Balance 360 / 650 Weight 62.8 kg Intake: Oral 360 / 480 Other: Urine Color Yellow Urine Appearance Clear Urine Odor Normal Normal Comment diaper change Stool Size Moderate Moderate Stool Characteristics Soft Soft Brown Voiding Methods Diaper Diaper Incontinent Incontinent Data Completed and Pending Labs on day of discharge: Labs from last 24 hours 11/24/20 05:40 Urine Color Yellow Urine Clarity Clear Urine pH 6.0 Ur Specific Collins 1.025 Urine Protein Negative Urine Ketones Trace H Urine Blood Negative Urine Nitrite Negative Urine Bilirubin Small H Urine Urobilinogen 0.2 Ur Leukocyte Esterase Negative Urine Glucose Negative 11/23/20 18:30 Blood Blood Culture - Pending 11/23/20 18:22 Blood Blood Culture - Pending Preliminary micro results at discharge 11/23/20 18:30 Blood Culture - Pending Blood 11/23/20 18:22 Blood Culture - Pending Blood [facility] Medical History Abnormal abdominal CT scan Alcohol induced fatty liver Alcohol use disorder Alcohol use disorder Anemia, iron deficiency Arthritis Atherosclerosis of abdominal aorta Hopson's esophagus determined by endoscopy Barretts esophagus Bone spur of foot Chronic iron deficiency anemia DDD (degenerative disc disease) Dehydration Dehydration, mild Depression Depression with anxiety Diverticulosis DNI (do not intubate) DNR (do not resuscitate) Erosive gastritis Erosive gastritis Essential tremor Fatty liver Gastroenteritis Goals of care, counseling/discussion Hematemesis Hepatitis A Hyperlipemia Hypokalemia due to excessive gastrointestinal loss of potassium Insomnia Left knee pain LLQ abdominal pain Low back pain Lower extremity edema Nonspecific ST-T wave electrocardiographic changes Osteoarthritis (arthritis due to wear and tear of joints) Palliative care patient POLST (Physician Orders for Life-Sustaining Treatment) signed 11/12/20 Rectal polyp Smoker unmotivated to quit Suspected COVID-19 virus infection Tetrahydrocannabinol (THC) use disorder, moderate, dependence Thrombocytopenia Tobacco use disorder Transaminitis Urinary incontinence Urinary urgency (08/14/17) Surgical History History of foot surgery Hx of colonoscopy Hx of esophagogastroduodenoscopy Family History Sister Anxiety Depression Father Cancer Mother Anxiety Social History Smoking/Tobacco Use Status: Current every day Tobacco Type: cigarettes Smoking packs per day: 1.5 Smoking cigarettes per day: 30.0 Smoking risk assessment performed?: Yes Alcohol Intake: current Alcohol Intake frequency: 3 or more drinks per day Alcohol type: beer Counseling provided: provider counseling Drug use: Daily Substance use type: marijuana Counseling given: Yes Details: No IV Drug Use Adopted: No Caregiver/Support person: No Foster care: No Household members: none Housing: house Number of Children: 0 Communication Needs: Corrective Lenses Education Level: high school Do you need help understanding health information?: Often current occupation: Unemployed Sexually active: No Do you think of yourself as: straight/heterosexual Current gender identity: male What is your relationship status?: never How often do you talk on the phone with friends or family?: three or more times per week How often do you get together with friends or relatives?: three or more times per week Panel score (0-1 are the most socially isolated patients): 1 What type of physical activity do you participate in: none and sedentary lifestyle Special pito needs: No Agree to transfusion: No Seatbelt use: always 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 Mom visits nearly daily. Friend Terrell Hartleyl visits every 3 weeks or so. Drinks and smokes too much. Always has. Feeling as if his health is giving out on him. This is not his first GI bleed. Not interested in quitting etoh or cigs. Knows it is killing him.
== END 2020-11-24 11:00 | disposition short-term general hospital (02) | DRG 556 ==
PROVIDERS: Family Medicine; Admitting Provider Internal Medicine; PCP Family Medicine; Visit Provider Internal Medicine
DX: R26.2 Difficulty in walking, not elsewhere classified (principal); R53.1 Weakness; K70.31 Alcoholic cirrhosis of liver with ascites; J41.0 Simple chronic bronchitis; D64.9 Anemia, unspecified; K22.70 Barrett's esophagus without dysplasia; K29.60 Other gastritis without bleeding; D50.0 Iron deficiency anemia secondary to blood loss (chronic); E83.42 Hypomagnesemia; Z66 Do not resuscitate; K76.0 Fatty (change of) liver, not elsewhere classified; E86.0 Dehydration; F41.8 Other specified anxiety disorders; K21.9 Gastro-esophageal reflux disease without esophagitis; G25.0 Essential tremor; E78.5 Hyperlipidemia, unspecified; G47.00 Insomnia, unspecified; E87.6 Hypokalemia; F17.210 Nicotine dependence, cigarettes, uncomplicated; F12.20 Cannabis dependence, uncomplicated; D69.6 Thrombocytopenia, unspecified; R50.9 Fever, unspecified; D72.829 Elevated white blood cell count, unspecified
CPT/HCPCS: 36410; 36415; 80048; 87040; 94640; 97110; 97162; 97530; 99306; 99316; 71045; 81003; 82728; 83540; 83550; 83735; 85025; 85045; J3480

== ENCOUNTER 2020-11-24 10:55 | Inpatient (IN) | payer MEDICAID, SELFPAY ==
[2020-11-23] MEDS: Sucralfate 1 GM TAB PO ×3 (11:49→21:27)
[2020-11-23] MEDS: POTASSIUM CHLORIDE 10 MEQ/100 ML BAG 100 MEQ IVPB (12:18)
[2020-11-23] MEDS: Potassium Chloride 10 MEQ CAPCR 20 MEQ PO ×2 (14:48→19:58)
[2020-11-23] MEDS: Furosemide 20 MG TAB PO (16:31)
[2020-11-23 18:06] VITALS: TEMP 38
[2020-11-23] MEDS: Acetaminophen 325 MG TAB PO (18:06)
[2020-11-23] MEDS: Lactulose 20 GM/30 ML CUP PO (19:56)
[2020-11-23] MEDS: Pantoprazole 40 MG TABCR PO (19:56)
[2020-11-23] MEDS: Protein Nutritional Supplement 16 GM 1 OUNCE PACKET PO (19:57)
[2020-11-23] MEDS: Midodrine 2.5 MG TAB 5 MG PO (19:57)
[2020-11-23] MEDS: Amoxicillin 875/Clav. 125 TAB PO (19:57)
[2020-11-23] MEDS: guaiFENesin 600 MG TABCR PO (19:58)
[2020-11-23] MEDS: Budesonide/Formoterol 160/4.5 6 GM 60 PUFF INH IH (19:58)
[2020-11-23] MEDS: Magnesium Oxide 400 MG TAB PO (19:58)
[2020-11-24] MEDS: Normal Saline Flush 10 ML SYR IVP ×2 (07:49→14:47)
[2020-11-24] MEDS: guaiFENesin 600 MG TABCR PO ×2 (07:49→20:34)
[2020-11-24] MEDS: Midodrine 2.5 MG TAB 5 MG PO ×2 (07:49→20:34)
[2020-11-24] MEDS: Multivitamin TAB 1 TAB PO (07:50)
[2020-11-24] MEDS: Thiamine 100 MG TAB PO (07:50)
[2020-11-24] MEDS: Pantoprazole 40 MG TABCR PO ×2 (07:50→20:35)
[2020-11-24] MEDS: Amoxicillin 875/Clav. 125 TAB PO (07:50)
[2020-11-24] MEDS: Tamsulosin 0.4 MG CAPCR PO (07:50)
[2020-11-24] MEDS: Folic Acid 1 MG TAB PO (07:50)
[2020-11-24] MEDS: Sucralfate 1 GM TAB PO ×4 (07:50→22:02)
[2020-11-24] MEDS: Lactulose 20 GM/30 ML CUP PO ×2 (07:51→20:33)
[2020-11-24] MEDS: Furosemide 20 MG TAB PO ×2 (07:51→16:54)
[2020-11-24] MEDS: Magnesium Oxide 400 MG TAB PO ×2 (07:51→20:33)
[2020-11-24] MEDS: Potassium Chloride 10 MEQ CAPCR 20 MEQ PO ×2 (07:51→20:36)
[2020-11-24] MEDS: Spironolactone 25 MG TAB PO (07:51)
[2020-11-24] MEDS: Tiotropium Bromide-Respimat 10 PUFF INH IH (10:06)
[2020-11-24] MEDS: Budesonide/Formoterol 160/4.5 6 GM 60 PUFF INH IH ×2 (10:06→20:34)
--- NOTE | 2020-11-24 11:16 | IN_ITS ---
Date of service: 11/24/20 Time of Service: 11:16 PT Notes Visit Reasons: FEVER, FATTY LIVER DISEASE Physical Therapy Inpatient Discharge Summary Date: 11/24/2020 Referring Doctor: Zion Wyatt MD PT Orders: PT CONSULT: Extendeden stay weakness Precautions: Fall. Standard. Activity as tolerated. Patient Profile/Admitting Diagnosis: Alton re-converts back to acute level of care from swing bed level 1 as of 11/24/2020. Alton is a 60-year-old male with past medical history significant for EtOH abuse and COPD who presented to the ED via EMS on 11/11/2019 with generalized weakness, confusion, increased urinary frequency, medication noncompliance, difficulty with ambulation, and bilateral leg swelling. He was found at home by his mother with altered mental status and generalized weakness. He is diagnosed with anemia due to acute blood loss, upper GI bleeding, acute hypokalemia, hypomagnesemia, leukocytosis, urinary tract infection, jaundice, and acute kidney injury. Aspiration PNA, GI bleed, hypokalemia have all been resolved per hospitalist. PMHX: Medical History (Updated 11/11/20 @ 16:48 by Laila Ontiveros MD) Abnormal abdominal CT scan Alcohol induced fatty liver Alcohol use disorder Alcohol use disorder Anemia, iron deficiency Arthritis Atherosclerosis of abdominal aorta Hopson's esophagus determined by endoscopy Barretts esophagus Bone spur of foot Chronic iron deficiency anemia COPD (chronic obstructive pulmonary disease) DDD (degenerative disc disease) Dehydration Dehydration, mild Depression Depression with anxiety Diverticulosis Erosive gastritis Erosive gastritis Esophageal reflux Essential tremor Fatty liver Gastroenteritis Hematemesis Hepatitis A Hyperlipemia Hypokalemia due to excessive gastrointestinal loss of potassium Hypomagnesemia Insomnia Left knee pain LLQ abdominal pain Low back pain Lower extremity edema Nonspecific ST-T wave electrocardiographic changes Osteoarthritis (arthritis due to wear and tear of joints) Rectal polyp Smoker unmotivated to quit Suspected COVID-19 virus infection Tetrahydrocannabinol (THC) use disorder, moderate, dependence Thrombocytopenia Tobacco use disorder Transaminitis Urinary incontinence Urinary urgency (08/14/17) Surgical History History of foot surgery Hx of colonoscopy Hx of esophagogastroduodenoscopy Social History/Home Situation: Lives alone in a private home in [place] with 3 steps with the rails to enter. Not fully able to get a reliable history due to persistent somnolence. Equipment Owned/DME: None Subjective: Understands goals set with PT to go home safely. remains anxious when out of bed too long. Agreeable to be seen between 11-12 am and 2-3 PM everyday for his therapy sessions. Continues to report fatigue with activity. Objective: General Observation: Supine in bed. Increasing swelling noted in B proximal and mid thighs with beginning fibrosis. Mental Status: Alert and oriented. Pain: None reported. ROM: Right Upper Extremity: Shoulder Flexion allows about 100 degrees. Shoulder abduction allows about 90 degrees. Elbow flexion WFL. Wrist flexion WFL. Opening and closing of hand WFL. Left Upper Extremity: Shoulder Flexion allows about 100 degrees. Shoulder abduc tion allows about 90 degrees. Elbow flexion WFL. Wrist flexion WFL. Opening and closing of hand WFL. Right Lower Extremity: Hip flexion unable to lift thigh while seated at EOB. Hip abduction WFL. Knee flexion 30 to 90 degrees. Ankle dorsiflexion 20 degrees to neutral. Ankle plantarflexion 20 degrees. Left Lower Extremity: Hip flexion unable to lift thigh while seated at EOB. Hip abduction WFL. Knee flexion 30 to 90 degrees. Ankle dorsiflexion 20 degrees to neutral. Ankle plantarflexion 20 degrees. Strength: Right Upper Extremity: Shoulder flexors 3-/5. Shoulder abductors 3-/5. Elbow flexors 4-/5. Elbow extensors 4-/5. Needle Punch Machine Operator weak but functional. Left Upper Extremity: Shoulder flexors 3-/5. Shoulder abductors 3-/5. Elbow flexors 4-/5. Elbow extensors 4-/5. Needle Punch Machine Operator weak but functional. Right Lower Extremity: Hip flexors 3-/5. Hip abductors 4-/5. Knee flexors 3-/5. Knee extensors 3-/5. Ankle dorsiflexors 3-/5. Ankle plantarflexors 3-/5. Left Lower Extremity: Hip flexors 3-/5. Hip abductors 4-/5. Knee flexors 3-/5. Knee extensors 3-/5. Ankle dorsiflexors 3-/5. Ankle plantarflexors 3-/5. Sensation: Intact as to pain and light pressure in B UE/LE Bed Mobility/Transfers: Supine to sit supervision Sit to stand supervision Stand to sit supervision Bed to chair supervision Chair to bed supervision Gait: Able to tolerate up to 200 feet +200 feet of level surface ambulation using the FWW with SBA with increased R LE hip external rotation causing out- toeing. Requires 3-4 standing rests due to fatigue for each trip. Balance: Static Sitting: Normal Dynamic Sitting: Normal Static Standing: Fair Dynamic Standing: Fair Assessment: Alton continues to demonstrate impairment in functional mobility skills requiring the use of a front wheeled walker and standby assist of another. He will benefit from continued services under acute level of care to progress bed mobility, transfers, and ambulation activity in anticipation of discharge to home with needed services. Patient continues to present with clinical signs and symptoms consistent with current/admitting diagnoses that have resulted to mobility limitations, gait instability, generalized weakness, and impairment of motor control as demonstrated by the following impairment level findings: 1. Continued weakness to B UE/LE major muscle groups 2. Impaired standing balance 3. Desaturation and SOB with ambulation and stairs 4. Limitation of joint range of motion in B UE/LE 5. Increased anxiety with mobility performance Impairments are continuing to contributing to the following functional limitations: 1. Increased dependence with transfers 2. Inability to safely ambulate without assistive device 3. Increase completion time for mobility ADL performance 4. Increased fall risk 5. Inability to negotiate steps alone safely Goals: Goals X1 week 1. Supine-Sit independent 2. Sit-Supine independent 3. Sit-Stand independent 4. Stand-Sit independent 5. Bed-Chair independent 6. Chair-Bed independent 7. Independent gait on level surface with use of least restrictive device for at least 300 feet without report of pain nor dyspnea 8. Independent stair negotiation while holding onto bilateral rails for at least 5 steps without report of pain nor dyspnea 9. Independent with home exercise program 10. Good static and dynamic standing balance/tolerance DISCHARGE RECOMMENDATIONS: Patient will benefit from residential facility placement for continued skilled physical therapy services in order to progress mobility level, strength, and balance in preparation for a safe discharge to home. TREATMENT CODE/TIME: 07966 x34 minutes beginning at 11:16 AM. Thank you for the opportunity to participate in the care of this patient. Sabina Kumar PT, DPT, CLT [facility] [place], [place]
--- NOTE | 2020-11-24 12:20 | W.PM.HP.N ---
Date of service: 11/24/20 Time of Service: 12:20 Assessment and Plan Assessment and plan (1) Bilateral pleural effusion: Status: Acute Assessment and plan: Improving. No SOA (2) Leucocytosis: Status: Acute Assessment and plan: Previous PNA treated with 5 days of Zosyn. No clear source uncovered. No acute infiltrates or consolidations on CXR. UA negative. Cefepime initiated. Monitor. (3) COPD (chronic obstructive pulmonary disease): Status: Chronic Assessment and plan: Cont Spiriva and Symbicort No acute exacerbation. Qualifiers: COPD type: chronic bronchitis Chronic bronchitis type: simple Qualified Code(s): J41.0 - Simple chronic bronchitis (4) Chronic anemia: Status: Chronic Assessment and plan: Chronic with recent GI bleed. Hgb stable now; monitor. (5) Alcohol induced fatty liver: Status: Acute Assessment and plan: With cirrhosis. Now recovered from hepatic encephalopathy. Cont Lactulose and spironolactone. Palliative care patient. (6) Adult failure to thrive: Status: Acute Assessment and plan: Multiple chronic medical problems including alcohol abuse syndrome. Palliative care. PT/OT Encourage nutrtional intake along with vitamin supplementation. History of Present Illness History of Present Illness Chief Complaint: Fever, leukocytosis Narrative: 60-year-old male with history of COPD and alcoholic cirrhosis complicated by encephalopathy and coagulopathy who was recently hospitalized from November 11, 2020 through November 19, 2020 for recurrent upper GI bleeding presumptively from his erosive esophagitis and gastritis. He had had previous endoscopy in February 2020 but during this most recent hospitalization surgery declined to perform repeat EGD. He was resuscitated with IV fluids and transfusion of 2 units of packed red blood cells and placed on IV Protonix and subsequently switched to oral Protonix and oral Carafate. His hospitalization was complicated by aspiration pneumonia which was treated for 5 days with Zosyn and prednisone along with aerosolized bronchodilators. He has developed ascites and pleural effusions which are currently being treated with spironolactone and Lasix. He has had recurrent hypokalemia and hypomagnesemia which is required both IV and oral replacement. During his acute hospital stay physical therapy saw him and patient responded well to treatment but still had residual weakness due to his acute illness and chronic malnutrition. He was admitted to the swing bed status on 11/19/2020 for further physical therapy to improve his gait and ambulation and strength. He still requires periodic monitoring of his CBC and BMP and magnesium levels. From a respiratory standpoint he had done quite well and not requiring any supplemental oxygen. His acute kidney injury which he had on admission resolved. His GI bleeding stopped and his hemoglobin has remained stable at around 10 g. During his acute hospitalization his WBC count improved to 11.74; down from 15.54. However, it did not resolve and began to increase; up to 13.99 on day of this discharge and return to acute status. He did have a fever of 38 on the night of 11/23/2020. A CXR showed Right basilar infiltrate which may represent atelectasis or pneumonia and interval improvement of the left basilar infiltrate and left pleural effusion. His UA was unremarkable. He denied only a very slight, intermittent cough/no sputum. No chilss, dysuria. No abd pain, N/V. No rashes or lesions. He was started on Augmentin initially while still swingbed status. He will be readmitted under an acute care stay and changed to cefepime and further evaluation for a cause of the fever and leukocytosis. Review of Systems All systems reviewed & are unremarkable except as noted in HPI and below [facility] Medical History Abnormal abdominal CT scan Alcohol induced fatty liver Alcohol use disorder Alcohol use disorder Anemia, iron deficiency Arthritis Atherosclerosis of abdominal aorta Hopson's esophagus determined by endoscopy Barretts esophagus Bone spur of foot Chronic iron deficiency anemia DDD (degenerative disc disease) Dehydration Dehydration, mild Depression Depression with anxiety Diverticulosis DNI (do not intubate) DNR (do not resuscitate) Erosive gastritis Erosive gastritis Essential tremor Fatty liver Gastroenteritis Goals of care, counseling/discussion Hematemesis Hepatitis A Hyperlipemia Hypokalemia due to excessive gastrointestinal loss of potassium Insomnia Left knee pain LLQ abdominal pain Low back pain Lower extremity edema Nonspecific ST-T wave electrocardiographic changes Osteoarthritis (arthritis due to wear and tear of joints) Palliative care patient POLST (Physician Orders for Life-Sustaining Treatment) signed 11/12/20 Rectal polyp Smoker unmotivated to quit Suspected COVID-19 virus infection Tetrahydrocannabinol (THC) use disorder, moderate, dependence Thrombocytopenia Tobacco use disorder Transaminitis Urinary incontinence Urinary urgency (08/14/17) Surgical History History of foot surgery Hx of colonoscopy Hx of esophagogastroduodenoscopy Family History Sister Anxiety Depression Father Cancer Mother Anxiety Social History Smoking/Tobacco Use Status: Current every day Tobacco Type: cigarettes Smoking packs per day: 1.5 Smoking cigarettes per day: 30.0 Smoking risk assessment performed?: Yes Alcohol Intake: current Alcohol Intake frequency: 3 or more drinks per day Alcohol type: beer Counseling provided: provider counseling Drug use: Daily Substance use type: marijuana Counseling given: Yes Details: No IV Drug Use Adopted: No Caregiver/Support person: No Foster care: No Household members: none Housing: house Number of Children: 0 Communication Needs: Corrective Lenses Education Level: high school Do you need help understanding health information?: Often current occupation: Unemployed Sexually active: No Do you think of yourself as: straight/heterosexual Current gender identity: male What is your relationship status?: never How often do you talk on the phone with friends or family?: three or more times per week How often do you get together with friends or relatives?: three or more times per week Panel score (0-1 are the most socially isolated patients): 1 What type of physical activity do you participate in: none and sedentary lifestyle Special pito needs: No Agree to transfusion: No Seatbelt use: always 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 Mom visits nearly daily. Friend Terrell Salvador visits every 3 weeks or so. Drinks and smokes too much. Always has. Feeling as if his health is giving out on him. This is not his first GI bleed. Not interested in quitting etoh or cigs. Knows it is killing him. Meds Home Medications and Allergies Home Medications Medication Instructions Recorded Confirmed Type Therapeutic-M 1 tab PO DAILY #30 tab 12/12/17 11/11/20 Rx albuterol sulfate 90 mcg/actuation 2 puff INHALATION Q4H PRN #18 gm 02/14/20 11/11/20 Rx aerosol inhaler furosemide 20 mg tablet 20 mg PO DAILY #90 tab 05/14/20 11/24/20 Rx pantoprazole 40 mg tablet,delayed 40 mg PO BID #180 tab 05/19/20 11/24/20 Rx release thiamine HCl (vitamin B1) 100 mg 100 mg PO DAILY #90 tab 05/19/20 11/24/20 Rx tablet blister packed meds PO 06/11/20 06/30/20 History tiotropium bromide 18 mcg capsule 1 cap INHALATION DAILY #60 inh 06/11/20 11/24/20 Rx with inhalation device mirtazapine 30 mg tablet 30 mg PO QHS #90 tab 06/30/20 11/11/20 Rx gabapentin 300 mg capsule 300 mg PO HS #30 cap 07/09/20 11/11/20 Rx magnesium oxide 400 mg (241.3 mg 400 mg PO BID@1000,2000 #60 tab 07/09/20 11/24/20 Rx magnesium) tablet ondansetron HCl 4 mg tablet 4 mg PO Q6H PRN #30 tab 09/01/20 11/19/20 Rx diaper,brief,adult,disposable #14 ea 11/03/20 History Allergies Allergy/AdvReac Type Severity Reaction Status Date / Time No Known Allergies Allergy Verified 11/11/20 12:09 Exam Const General: cooperative and no acute distress Nutritional Appearance: thin and underweight Orientation: alert, oriented to person and oriented to place HENCT Head: normocephalic and atraumatic Resp Effort & Inspection: normal respiratory effort Auscultation: clear to auscultation bilaterally Cardio Rate: regular rate Rhythm: regular rhythm Heart Sounds: S1 normal and S2 normal GI Inspection: distended Palpation: soft and nontender Auscultation: hyperactive bowel sounds Skin General skin exam: no rashes or lesions noted Extrem General: no calf tenderness Psych Appearance: grossly normal Mental Status: mental status grossly normal Speech and Movement: speech and movement normal Mood: euthymic mood Affect: blunted COVID-19 Screening Have you, or household traveled for leisure in last 14 days?: No
--- NOTE | 2020-11-24 15:20 | PT.INTREAT ---
Date of service: 11/24/20 Time of Service: 15:00 PT Notes Visit Reasons: FEVER, FATTY LIVER DISEASE Inpatient Physical Therapy Treatment Note [facility] Date: 11/24/2020 PRECAUTIONS: Fall, activity as tolerated SUBJECTIVE: Alton reports that he is not feeling well again today. When asked to get out of bed to participate in PT, patient states I'm sorry, when I'm not feeling well, I can't do it. OBJECTIVE: PAIN: No complaints of pain BED MOBILITY/TRANSFERS/GAIT: Refused THEREX: Patient was instructed in a lower extremity and resisted upper extremity strengthening program, performed in a supine position, as per flow sheet. Patient required several rests due to increased fatigue and SOB. ASSESSMENT: Patient tolerated session with complaints of increased fatigue and SOB with ther ex completion. He would benefit from continued gait training and global strengthening, as tolerated, for improved activity tolerance. PLAN: Continue with gait training with least restrictive device and global strengthening for improved activity tolerance TREATMENT CODE/TIME: 10 minutes; [id number]
[2020-11-24 15:25] VITALS: BP 100/66; PULSE 73; RESP 17; TEMP 36.9; O2SAT 92
--- NOTE | 2020-11-24 19:16 | INITIAL_ITS ---
- If Service Date Differs Date of service: 11/24/20 Time of Service: 19:16 Care Management Initial Assess REASON FOR HOSPITALIZATION:: Bilateral pleural effusions PAST MEDICAL HISTORY/PAST SURGICAL HISTORY:: Medical History (Updated 11/11/20 @ 16:48 by Laila Ontiveros MD). Abnormal abdominal CT scan. Alcohol induced fatty liver. Alcohol use disorder. Alcohol use disorder. Anemia, iron deficiency. Arthritis. Atherosclerosis of abdominal aorta. Hopson's esophagus determined by endoscopy. Barretts esophagus. Bone spur of foot. Chronic iron deficiency anemia. COPD (chronic obstructive pulmonary disease). DDD (degenerative disc disease). Dehydration. Dehydration, mild. Depression. Depression with anxiety. Diverticulosis. Erosive gastritis. Erosive gastritis. Esophageal reflux. Essential tremor. Fatty liver. Gastroenteritis. Hematemesis. Hepatitis A. Hyperlipemia. Hypokalemia due to excessive gastrointestinal loss of potassium. Hypomagnesemia. Insomnia. Left knee pain. LLQ abdominal pain. Low back pain. Lower extremity edema. Nonspecific ST-T wave electrocardiographic changes. Osteoarthritis (arthritis due to wear and tear of joints). Rectal polyp. Smoker unmotivated to quit. Suspected COVID-19 virus infection. Tetrahydrocannabinol (THC) use disorder, moderate, dependence. Thrombocytopenia. Tobacco use disorder. Transaminitis. Urinary incontinence. Urinary urgency (08/14/17). Surgical History . History of foot surgery. Hx of colonoscopy. Hx of esophagogastroduodenoscopy PREVIOUS FUNCTIONAL STATUS/SOCIAL/FAMILY SUPPORTS:: Alton lives alone in a single family home in [place]. His mother is a good support and spends a lot of time with him; Alton states that she visits almost every day. Alton is unemployed and has been for 3 years. He states that he manages his care independently. Alton has 2 sisters; one lives locally and is homebound and is cared for by Alton's mother. The other sister is not in the area. ADVANCE DIRECTIVES:: none and is not interested at this time. Has patient been provided with info about the portal/API?: No Did the patient sign up for the portal?: No CODE STATUS:: DNR/DNI INSURANCE COVERAGE / FINANCIAL ISSUES:: Medicaid CURRENT HOME/COMMUNITY SERVICES/EQUIPMENT:: none currently PRIMARY CARE PHYSICIAN:: Jonathan Black POTENTIAL DISCHARGE NEEDS:: new home health services for RN,PT,OT and PROCESS CONTROL ENGINEER. Follow up with his PCP and discharge plan. PATIENT/FAMILY EDUCATION NEEDS:: Discharge plan, limitations, medication management, follow up plan, [employer] TRANSPORTATION:: via private vehicle with family or friends PLAN:: Alton will likely be discharged home with new home health services, for RN, OT, PT and PROCESS CONTROL ENGINEER. He may need to return to [facility] for more rehab prior to leaving the hospital. He will follow up with his community providers and plan of care. CM will continue to support patient, family and discharge planning concerns.
[2020-11-24] MEDS: Protein Nutritional Supplement 16 GM 1 OUNCE PACKET PO (20:33)
[2020-11-24] MEDS: Nystatin CREAM 15 GM TUBE TP (20:35)
[2020-11-24 22:48] VITALS: BP 106/74; PULSE 107; RESP 18; TEMP 36.9; O2SAT 93
[2020-11-25 07:01] LABS: Abs Immature Grans 0.06 10^3/uL (0.0-0.06); Absolute Eosinophil Count 0.06 10^3/uL (0.0-0.7); Absolute Lymphocyte Count 1.14 10^3/uL (1.2-3.4); Basophils % 0.2; Eosinophils % 0.4; HGB 9.9 g/dL (13.5-17.5); Immature Grans % 0.4; Lymphocytes % 7.1; MCH 30.4 pg (27.0-33.0); MCHC 31.9 % (32.0-36.0); MCV 95.1 fL (80-95); MPV 9.8 fL (8.0-11.0); Monocytes % 7.3; Neutrophils % 84.6; Nucleated RBC 0 %; Platelet Count 156 10^3/uL (130-400); RBC 3.26 10^6/uL (4.36-5.78); RDW-SD 74.2 fL; WBC 16.12 10^3/uL (4.4-10.8)
[2020-11-25 07:02] LABS: Absolute Basophil Count 0.03 10^3/uL (0.0-0.2); Absolute Monocyte Count 1.18 10^3/uL (0.1-0.8); Absolute Neutrophil Count 13.64 10^3/uL (1.2-6.7)
[2020-11-25 07:10] LABS: INR 1.3 (0.9-1.1); Prothrombin Time 13.1 sec (9.3-11.0)
[2020-11-25 07:22] LABS: ALT 37 U/L (16-63); AST 68 U/L (15-37); Albumin 1.7 g/dL (3.4-5.0); Alkaline Phosphatase 60 U/L (46-116); Anion Gap 7.4 mmol/L (3-11); BUN 8 mg/dL (7-18); Bilirubin, Total 1.5 mg/dL (0.2-1.0); CO2 24.6 mmol/L (21.0-32.0); CREATININE 0.44 mg/dL (0.70-1.30); Calcium 7.8 mg/dL (8.5-10.1); Chloride 104 mmol/L (98-107); Glucose 97 mg/dL (74-106); Magnesium 1.2 mg/dL (1.8-2.4); Potassium 3.7 mmol/L (3.5-5.1); Sodium 136 mmol/L (136-145); Total Protein 5.4 g/dL (6.4-8.2)
[2020-11-25 07:24] VITALS: BP 99/69; PULSE 96; RESP 17; TEMP 36.7; O2SAT 93
[2020-11-25 07:48] VITALS: BP 100/70
[2020-11-25] MEDS: Tiotropium Bromide-Respimat 10 PUFF INH IH (07:53)
[2020-11-25] MEDS: Budesonide/Formoterol 160/4.5 6 GM 60 PUFF INH IH ×2 (07:54→20:35)
--- NOTE | 2020-11-25 08:45 | NT_ITS ---
Date of service: 11/25/20 Time of Service: 08:45 Occupational Therapy Notes 11/25/20 OT consult received and pts chart was reviewed. OT attempted to consult with pt who refused OT consult this morning indicating that he is not interested in participating today but would be willing to participate tomorrow. OT will attempt to resume services tomorrow. Yvonne Jacobsen OTR/[facility]
[2020-11-25] MEDS: Lactulose 20 GM/30 ML CUP PO ×2 (09:00→20:36)
[2020-11-25] MEDS: Thiamine 100 MG TAB PO (09:00)
[2020-11-25] MEDS: Midodrine 2.5 MG TAB 5 MG PO ×2 (09:00→20:36)
[2020-11-25] MEDS: Protein Nutritional Supplement 16 GM 1 OUNCE PACKET PO ×3 (09:00→20:37)
[2020-11-25] MEDS: Tamsulosin 0.4 MG CAPCR PO (09:01)
[2020-11-25] MEDS: Multivitamin TAB 1 TAB PO (09:01)
[2020-11-25] MEDS: Pantoprazole 40 MG TABCR PO ×2 (09:01→20:36)
[2020-11-25] MEDS: Linezolid 600 MG TAB PO ×2 (09:01→20:36)
[2020-11-25] MEDS: Sucralfate 1 GM TAB PO ×4 (09:01→21:02)
[2020-11-25] MEDS: Potassium Chloride 10 MEQ CAPCR 20 MEQ PO ×3 (09:01→20:36)
[2020-11-25] MEDS: guaiFENesin 600 MG TABCR PO ×2 (09:01→20:36)
[2020-11-25] MEDS: Magnesium Oxide 400 MG TAB PO ×2 (09:01→20:36)
[2020-11-25] MEDS: Folic Acid 1 MG TAB PO (09:02)
[2020-11-25] MEDS: Nystatin CREAM 15 GM TUBE TP ×2 (09:42→20:51)
[2020-11-25] MEDS: Spironolactone 25 MG TAB PO (09:42)
[2020-11-25] MEDS: MAGNESIUM SULFATE 2 GM/50 ML BAG IVPB (09:42)
[2020-11-25] MEDS: Ondansetron 4 MG/2 ML VIAL IVP (12:33)
[2020-11-25] MEDS: Normal Saline Flush 10 ML SYR IVP ×3 (12:33→20:37)
--- NOTE | 2020-11-25 12:59 | W.PM.PROGNOT ---
Date of Service Date of service: 11/25/20 Time of Service: 10:51 Assessment and Plan Assessment and plan (1) Bilateral pleural effusion: Status: Acute Assessment and plan: Improved. Held lasix today d/t marginally low BP today. Continue spironolactone. (2) Leucocytosis: Status: Acute Assessment and plan: Rocephin 2gr daily; added Zyvox. Previous pneumonia treated with Zosyn. CXR w/o any new findings. UA w/o evidence of infection. Now with nausea but no pain; antibiotic coverage should be adequate for any developing SBP. Monitor WBC count; was increased today to 16.12. (3) Hypomagnesemia: Status: Chronic Assessment and plan: On lactuose for hepatic encephalopathy prevention. 2 loose stools daily. Has ongoing loss of Mg despite oral and IV replacement. Cont oral and give another 2g IV Mg. Monitor. (4) Anemia associated with acute blood loss: Status: Acute Assessment and plan: Recent GI bleed. Hgb now stable in the upper 9's. Monitor (5) Alcohol induced fatty liver: Status: Acute Assessment and plan: with ascites. Watch for worsening and a need for paracentesis. Subjective Subjective Patient reports: nausea and afebrile; denies blood in stool, vomiting and shortness of breath Interval history since last seen: States he slept poorly and wants to be left alone to sleep for several hours. No cough/sputum. No dysuria, frequency. Exam Const General: cooperative and no acute distress Nutritional Appearance: thin and underweight Orientation: alert, oriented to person and oriented to place Eyes Sclera: sclerae normal Pupils: PERRL Resp Effort & Inspection: normal respiratory effort Auscultation: clear to auscultation bilaterally Cardio Rate: regular rate Rhythm: regular rhythm Heart Sounds: S1 normal and S2 normal GI Inspection: distended Palpation: soft and nontender Auscultation: normal bowel sounds Skin General skin exam: no rashes or lesions noted Extrem General: no pedal edema and no calf tenderness Psych Appearance: grossly normal Speech and Movement: speech and movement normal Affect: irritable affect Objective Last Vital Signs Temp 36.7 C 11/25/20 07:24 Pulse 96 H 11/25/20 07:24 Resp 17 11/25/20 07:24 BP 100/70 11/25/20 07:48 Pulse Ox 93 11/25/20 07:24 Laboratory Results - last 24 hr 11/25/20 11/25/20 11/25/20 06:50 06:50 06:50 WBC 16.12 H RBC 3.26 L Hgb 9.9 L Hct 31.0 L MCV 95.1 H MCH 30.4 MCHC 31.9 L RDW 22.0 H Plt Count 156 MPV 9.8 Immature Gran % 0.4 Neutrophils % 84.6 Lymphocytes % 7.1 Monocytes % 7.3 Eosinophils % 0.4 Basophils % 0.2 Nucleated RBC % 0 Absolute Neutrophils 13.64 H Absolute Lymphocytes 1.14 L Absolute Monocytes 1.18 H Absolute Eosinophils 0.06 Absolute Basophils 0.03 PT 13.1 H INR 1.3 H Sodium 136 Potassium 3.7 D Chloride 104 Carbon Dioxide 24.6 Anion Gap 7.4 BUN 8 Creatinine 0.44 L Estimated GFR/1.73 m2 >= 60.00 Glucose 97 Calcium 7.8 L Magnesium 1.2 L Total Bilirubin 1.5 H AST 68 H ALT 37 Alkaline Phosphatase 60 Total Protein 5.4 L Albumin 1.7 L
[2020-11-25] MEDS: cefTRIAXone 2 GM/50 ML BAG IVPB (13:56)
--- NOTE | 2020-11-25 14:45 | PT.INTREAT ---
Date of service: 11/25/20 Time of Service: 11:30 PT Notes Visit Reasons: FEVER, FATTY LIVER DISEASE Inpatient Physical Therapy Treatment Note [facility] Date: 11/25/2020 PRECAUTIONS: Fall, activity as tolerated SUBJECTIVE: Alton continues to report that he has stomach pain, which is limiting his mobility and his willingness to participate in PT, or really any activity at all. OBJECTIVE: PAIN: Patient c/o of stomach pain BED MOBILITY/TRANSFERS Supine-sit: Min A Sit-supine: S Sit-stand: SBA Stand-sit: SBA GAIT: Assistive Device: FWW Weight bearing: Full Assist: SBA Distance: 4 side steps to L THEREX: Patient was instructed in a resisted upper and lower extremity strengthening program, while in a supine position, as per flow sheet. Patient requires rests between exercises due to increased SOB, fatigue, and stomach pain with nausea. ASSESSMENT: Patient tolerated session with complaints of stomach pain with nausea, increasing with activity. He would benefit from continued transfer and gait training and global strengthening, as tolerated, for improved activity tolerance and mobility. PLAN: Continue with gait and transfer training and global strengthening for improved activity tolerance and mobility. TREATMENT CODE/TIME: Session 1: 20 minutes; 35944 Session 2: 10 minutes; 70218 (15 minutes of unbillable time)
[2020-11-25 16:02] VITALS: BP 104/74; PULSE 115; RESP 17; TEMP 36.7; O2SAT 91
[2020-11-25] MEDS: Acetaminophen 325 MG TAB PO (16:04)
--- NOTE | 2020-11-25 18:41 | PDOC.CMPRO ---
- If Service Date Differs Date of service: 11/25/20 Time of Service: 18:41 Care Management Progress Note S/O: Alton was sitting up in bed when CM met witb him. He stated that he still does not feel well and has not done much work with PT. He verbalized that he understands that he must participate with PT if he is to get stronger and return home. CM spoke with his mother Deidre again today. She became emotional discussing Alton, his condition and her fears that he will . CM providerd support and active listening, focusing on the progress he has made. A: Alton is a 60 year old man admitted to [facility] in 11/11/20 with ANNALISA, leukocytosis, hypokalemia P: Alton will likely be discharged home with new home health services, for RN, OT, PT and ELECTRICIAN TELEPHONE. He may need to return to [facility] for more rehab prior to leaving the hospital. He will follow up with his community providers and plan of care. CM will continue to support patient, family and discharge planning concerns. cc:
[2020-11-25] MEDS: Gabapentin 300 MG CAP PO (21:02)
[2020-11-26 03:20] VITALS: BP 98/60; PULSE 98; RESP 17; TEMP 37.2; O2SAT 93
[2020-11-26 06:40] LABS: Abs Immature Grans 0.03 10^3/uL (0.0-0.06); Absolute Basophil Count 0.05 10^3/uL (0.0-0.2); Absolute Eosinophil Count 0.08 10^3/uL (0.0-0.7); Absolute Lymphocyte Count 1.02 10^3/uL (1.2-3.4); Absolute Neutrophil Count 14.03 10^3/uL (1.2-6.7); Basophils % 0.3; Eosinophils % 0.5; HCT 29.7 % (40.0-50.0); HGB 9.5 g/dL (13.5-17.5); Immature Grans % 0.2; Lymphocytes % 6.2; MCH 30.8 pg (27.0-33.0); MCV 96.4 fL (80-95); Monocytes % 7.5; Neutrophils % 85.3; Nucleated RBC 0 %; Platelet Count 164 10^3/uL (130-400); RBC 3.08 10^6/uL (4.36-5.78); RDW 21.8 % (11.8-14.1); RDW-SD 74.7 fL; WBC 16.45 10^3/uL (4.4-10.8)
[2020-11-26 06:51] LABS: Absolute Monocyte Count 1.23 10^3/uL (0.1-0.8)
[2020-11-26 06:52] LABS: Magnesium 1.4 mg/dL (1.8-2.4)
[2020-11-26 07:17] LABS: ALT 34 U/L (16-63); AST 58 U/L (15-37); Albumin 1.6 g/dL (3.4-5.0); Alkaline Phosphatase 60 U/L (46-116); Anion Gap 3.8 mmol/L (3-11); BUN 8 mg/dL (7-18); Bilirubin, Total 1.1 mg/dL (0.2-1.0); CO2 26.2 mmol/L (21.0-32.0); CREATININE 0.45 mg/dL (0.70-1.30); Calcium 8.1 mg/dL (8.5-10.1); Chloride 106 mmol/L (98-107); Glucose 109 mg/dL (74-106); Potassium 4.1 mmol/L (3.5-5.1); Sodium 136 mmol/L (136-145); Total Protein 5.3 g/dL (6.4-8.2)
[2020-11-26] MEDS: Tiotropium Bromide-Respimat 10 PUFF INH IH (07:42)
[2020-11-26] MEDS: Budesonide/Formoterol 160/4.5 6 GM 60 PUFF INH IH ×2 (07:42→20:24)
[2020-11-26] MEDS: Sucralfate 1 GM TAB PO ×4 (08:20→22:10)
[2020-11-26] MEDS: Tamsulosin 0.4 MG CAPCR PO (08:20)
[2020-11-26] MEDS: Linezolid 600 MG TAB PO ×2 (08:20→20:26)
[2020-11-26] MEDS: Protein Nutritional Supplement 16 GM 1 OUNCE PACKET PO ×2 (08:20→20:25)
[2020-11-26] MEDS: Pantoprazole 40 MG TABCR PO (08:20)
[2020-11-26] MEDS: Midodrine 2.5 MG TAB 5 MG PO ×2 (08:20→20:26)
[2020-11-26] MEDS: Lactulose 20 GM/30 ML CUP PO ×2 (08:20→20:29)
[2020-11-26] MEDS: Magnesium Oxide 400 MG TAB PO ×2 (08:21→20:26)
[2020-11-26] MEDS: Folic Acid 1 MG TAB PO (08:21)
[2020-11-26] MEDS: Multivitamin TAB 1 TAB PO (08:21)
[2020-11-26] MEDS: Thiamine 100 MG TAB PO (08:21)
[2020-11-26] MEDS: Potassium Chloride 10 MEQ CAPCR 20 MEQ PO ×3 (08:21→20:26)
[2020-11-26] MEDS: Spironolactone 25 MG TAB PO (08:21)
[2020-11-26 08:30] VITALS: BP 107/68; PULSE 110; RESP 17; TEMP 36.6; O2SAT 94
--- NOTE | 2020-11-26 08:31 | NT_ITS ---
Date of service: 11/26/20 Time of Service: 08:32 Occupational Therapy Notes 11/26/20 Pt refused OT consult again today, he states that he may be interested in services tomorrow. Yvonne Jacobsen OTR/[facility]
[2020-11-26] MEDS: MAGNESIUM SULFATE 2 GM/50 ML BAG IVPB (11:06)
[2020-11-26] MEDS: Nystatin CREAM 15 GM TUBE TP ×2 (11:07→20:25)
[2020-11-26] MEDS: Normal Saline Flush 10 ML SYR IVP ×2 (11:08→13:45)
--- NOTE | 2020-11-26 13:24 | W.PM.PROGNOT ---
Date of Service Date of service: 11/26/20 Time of Service: 11:09 Assessment and Plan Assessment and plan (1) Bilateral pleural effusion: Status: Acute Assessment and plan: Had notable improvement on last CXR. No SOA, cough/sputum (2) Leucocytosis: Status: Acute Assessment and plan: Etiology is unclear. Covering PNA and potential early SBP with Ceftriaxone and Zyvox. WBC count elevated but now at 16 x 2 days. Monitor. (3) Adult failure to thrive: Status: Acute Assessment and plan: Ambulatory dysfunction with BLE generalized weakness. PT He is OK with SNF placement. (4) COPD (chronic obstructive pulmonary disease): Status: Chronic Assessment and plan: No acute exacerbation. Qualifiers: COPD type: chronic bronchitis Chronic bronchitis type: simple Qualified Code(s): J41.0 - Simple chronic bronchitis (5) Chronic anemia: Status: Chronic Assessment and plan: Stable in the 9's. (6) Alcohol induced fatty liver: Status: Acute Assessment and plan: Bilirubin has improved. Hepatic encephalopathy resolved. Cont lactulose (7) Hypomagnesemia: Status: Chronic Assessment and plan: Because of need for 2 loose stools daily, having difficulty maintaining Mg. Giving Mg bolus again today. Cont oral supplementation. Monitor. Subjective Subjective Patient reports: feels better, bowel movement and afebrile; denies nausea, vomiting and shortness of breath Exam Const General: cooperative and no acute distress Nutritional Appearance: overweight HENMT Head: normocephalic and atraumatic Neck Neck: full ROM and no JVD Resp Effort & Inspection: normal respiratory effort Auscultation: clear to auscultation bilaterally Cardio Rate: regular rate Rhythm: regular rhythm Heart Sounds: S1 normal and S2 normal GI Inspection: distended Palpation: soft and nontender Skin General skin exam: no rashes or lesions noted Neuro General: patient alert, patient oriented x3 and moves all extremities Motor: strength not 5/5 throughout (4/5 BLE) Extrem General: no pedal edema and no calf tenderness Objective Last Vital Signs Temp 37.2 C 11/26/20 03:20 Pulse 98 H 11/26/20 03:20 Resp 17 11/26/20 03:20 BP 98/60 L 11/26/20 03:20 Pulse Ox 93 11/26/20 03:20 Laboratory Results - last 24 hr 11/26/20 11/26/20 11/26/20 06:17 06:17 06:17 WBC 16.45 H RBC 3.08 L Hgb 9.5 L Hct 29.7 L MCV 96.4 H MCH 30.8 MCHC 32.0 RDW 21.8 H Plt Count 164 MPV 10.0 Immature Gran % 0.2 Neutrophils % 85.3 Lymphocytes % 6.2 Monocytes % 7.5 Eosinophils % 0.5 Basophils % 0.3 Nucleated RBC % 0 Absolute Neutrophils 14.03 H Absolute Lymphocytes 1.02 L Absolute Monocytes 1.23 H Absolute Eosinophils 0.08 Absolute Basophils 0.05 Sodium Cancelled 136 Potassium Cancelled 4.1 Chloride Cancelled 106 Carbon Dioxide Cancelled 26.2 Anion Gap Cancelled 3.8 BUN Cancelled 8 Creatinine Cancelled 0.45 L Estimated GFR/1.73 m2 Cancelled >= 60.00 Glucose Cancelled 109 H Calcium Cancelled 8.1 L Magnesium 1.4 L Total Bilirubin 1.1 H AST 58 H ALT 34 Alkaline Phosphatase 60 Total Protein 5.3 L Albumin 1.6 L
[2020-11-26] MEDS: cefTRIAXone 2 GM/50 ML BAG IVPB (13:45)
--- NOTE | 2020-11-26 13:54 | PTTR_ITS ---
Date of service: 11/26/20 Time of Service: 13:54 PT Notes Visit Reasons: FEVER, FATTY LIVER DISEASE Inpatient Physical Therapy Treatment Note [facility] Date: 11/26/2020 PRECAUTIONS: Fall. Activity as tolerated. SUBJECTIVE: Reports fatigue and abdominal pain but is agreeable to PT session after extensive encouragement. States that he did not have a restful night and is not sure how he will do in today's session. OBJECTIVE: PAIN: Reports abdominal heaviness and pain after ambulation activity BED MOBILITY/TRANSFERS Supine-sit: Min A Sit-supine: Minimal assist to BLE due to fatigue after ambulation activity Sit-stand: SBA Stand-sit: SBA GAIT: Assistive Device: FWW Weight bearing: Full Assist: SBA Distance: 30 feet x 3 Gait pattern/deviation: Reported fatigue and abdominal pain after ambulation activity. Needed to do 1-2 standing rest rests for each trip. Moderate shortness of breath that resolves with rest. Remained anxious after activity. THEREX: Patient tolerated seated level exercises while at edge of bed consisting of ankle dorsiflexion plantarflexion, long arc quads, seated hip flexion, and hip abduction x10 with 2 to 3 minutes of rest in between each exercise as patient complains of fatigue and shortness of breath. ASSESSMENT: Barriers to achieving goals at this time include anxiety over shortness of breath, limited motivation and initiation, increasing abdominal and thigh volume/swelling, and abdominal as well as thigh pain. Patient will benefit from [facility] for continued skilled physical therapy services in order to progress mobility level, strength, and balance in preparation for a safe discharge to home. PLAN: Continue with gait and transfer training and global strengthening for improved activity tolerance and mobility. TREATMENT CODE/TIME: Session 1: 11790 x 15 minutes, 9711 0 x 10 minutes beginning at 11:20 AM. Session 2: 9753 0 x 20 minutes, 9711 0 x 11 minutes beginning at 13:54 PM.
--- NOTE | 2020-11-26 15:50 | PHA.REVIEW ---
Pharmacy Admission Review - Admission Clinical Review (Last Reviewed 11/24/20 @ 12:28 by Zion Wyatt MD) Bilateral pleural effusion (Acute) Leucocytosis (Acute) Adult failure to thrive (Acute) Anemia associated with acute blood loss (Acute) Alcohol induced fatty liver (Acute) No Known Allergies Allergy (Verified 11/11/20 12:09) Height 5 ft 10.08 in Weight 62.8 kg FEVER, FATTY LIVER DISEASE,? SPONTANEOUS BACTERIAL PERITONITIS - Comments Comments/Follow Ups: Afebrile, WBC ~ same, not signifcantly improved. Furosemide on HOLD due to low BP's, watch potassium as it's ordered 20meq po TID, covering Pneumonia and potential SBP with Ceftriaxone 2gram and oral Zyvox, unknown source of infection. Lactulose continues although encephalopathy has resolved. Does have chronic anemia d/t recent GI bleed, some confusion overnight. Blood cultures from 11/23/20 no growth x48h. Failure to thrive-refused lunch, ate 75% breakfast - Renal Dosing Renal Dosing: BUN 8 mg/dL (7-18) 11/26/20 06:17 BUN Cancelled 11/26/20 06:17 Creatinine 0.45 mg/dL (0.70-1.30) L 11/26/20 06:17 Creatinine Cancelled 11/26/20 06:17 CrCl~89ml/min Medications needing adjustments: Reviewed - Anticoagulation Anticoagulation: Hgb 9.5 g/dL (13.5-17.5) L 11/26/20 06:17 Hct 29.7 % (40.0-50.0) L 11/26/20 06:17 Plt Count 164 10^3/uL (130-400) 11/26/20 06:17 INR 1.3 (0.9-1.1) H 11/25/20 06:50 Creatinine 0.45 mg/dL (0.70-1.30) L 11/26/20 06:17 Creatinine Cancelled 11/26/20 06:17 DVT Prohphylaxis: N/A (TEDS, repositioning-recent GI bleed therefore contraindicated at this time) - Opiate Usage Evaluate Pain Scale/Pains Meds: N/A - Relevant Labs Sodium 136 mmol/L (136-145) 11/26/20 06:17 Sodium Cancelled 11/26/20 06:17 Potassium 4.1 mmol/L (3.5-5.1) 11/26/20 06:17 Potassium Cancelled 11/26/20 06:17 Chloride 106 mmol/L (98-107) 11/26/20 06:17 Chloride Cancelled 11/26/20 06:17 Magnesium 1.4 mg/dL (1.8-2.4) L 11/26/20 06:17 Magnesium 2gram IV x1, oral MagOx H/H 9.5/29.7-chronic anemia WBC ~ same 16.45 LFT's and Bilirubin levels decreased - DM Control DM Control: Glucose 109 mg/dL (74-106) H 11/26/20 06:17 Glucose Cancelled 11/26/20 06:17 Insulin Dosing: N/A - Heart Failure/MO EF%, LEW's, B-Blockers, Diuretics: Reviewed (Spironolactone, Lasix) - BP Control If elevated: N/A (BP 98/60) - Home Meds Home Med List reviewed: Reviewed Relevent Home Meds Not ordered & why?: Albuterol MDI, Mirtazapine Antibiotic Activity - Pharmacy Antibiotic Review Pharmacy Antibiotic Activity: Reviewed, no change (Ceftriaxone 2gram IV daily and Zyvox oral BID)
[2020-11-26 16:30] VITALS: BP 102/68; PULSE 110; RESP 16; TEMP 37.4; O2SAT 92
[2020-11-26] MEDS: guaiFENesin 600 MG TABCR PO (20:26)
[2020-11-26] MEDS: Famotidine 20 MG TAB 40 MG PO (20:26)
[2020-11-26] MEDS: Gabapentin 300 MG CAP PO (22:10)
[2020-11-27 06:28] VITALS: BP 96/64; PULSE 99; RESP 17; TEMP 37.3; O2SAT 90
[2020-11-27 07:13] LABS: Abs Immature Grans 0.05 10^3/uL (0.0-0.06); Absolute Basophil Count 0.04 10^3/uL (0.0-0.2); Absolute Eosinophil Count 0.06 10^3/uL (0.0-0.7); Absolute Lymphocyte Count 1.05 10^3/uL (1.2-3.4); Absolute Monocyte Count 1.16 10^3/uL (0.1-0.8); Basophils % 0.3; Eosinophils % 0.4; HCT 30.4 % (40.0-50.0); HGB 9.7 g/dL (13.5-17.5); Immature Grans % 0.3; Lymphocytes % 7.2; MCH 30.4 pg (27.0-33.0); MCHC 31.9 % (32.0-36.0); MCV 95.3 fL (80-95); MPV 10.8 fL (8.0-11.0); Neutrophils % 83.8; Nucleated RBC 0 %; Platelet Count 165 10^3/uL (130-400); RBC 3.19 10^6/uL (4.36-5.78); RDW 21.4 % (11.8-14.1); RDW-SD 74.6 fL; WBC 14.56 10^3/uL (4.4-10.8)
[2020-11-27] MEDS: Budesonide/Formoterol 160/4.5 6 GM 60 PUFF INH IH ×2 (07:29→20:17)
[2020-11-27] MEDS: Tiotropium Bromide-Respimat 10 PUFF INH IH (07:30)
--- NOTE | 2020-11-27 07:58 | NT_ITS ---
Date of service: 11/27/20 Time of Service: 07:45 Occupational Therapy Notes 11/27/20 OT has attempted to consult with pt all week long. He continues to refuse his Occupational Therapy consult and states today that he is not interested in participating. Based on pts multiple refusals and refusal for OT consult, OT will plan to discharge order for skilled OT services at this time. Yvonne Jacobsen, OTR/[facility]
[2020-11-27] MEDS: Protein Nutritional Supplement 16 GM 1 OUNCE PACKET PO ×3 (08:12→20:18)
[2020-11-27] MEDS: Folic Acid 1 MG TAB PO (08:12)
[2020-11-27] MEDS: Lactulose 20 GM/30 ML CUP PO ×2 (08:12→20:17)
[2020-11-27] MEDS: Famotidine 20 MG TAB 40 MG PO ×2 (08:13→20:18)
[2020-11-27] MEDS: Potassium Chloride 10 MEQ CAPCR 20 MEQ PO ×3 (08:13→20:18)
[2020-11-27] MEDS: guaiFENesin 600 MG TABCR PO ×2 (08:13→20:19)
[2020-11-27] MEDS: Sucralfate 1 GM TAB PO ×4 (08:13→21:43)
[2020-11-27] MEDS: Spironolactone 25 MG TAB PO (08:13)
[2020-11-27] MEDS: Magnesium Oxide 400 MG TAB PO ×2 (08:13→20:19)
[2020-11-27] MEDS: Multivitamin TAB 1 TAB PO (08:13)
[2020-11-27] MEDS: Acetaminophen 325 MG TAB PO ×2 (08:13→20:46)
[2020-11-27] MEDS: Thiamine 100 MG TAB PO (08:13)
[2020-11-27] MEDS: Midodrine 2.5 MG TAB 5 MG PO ×2 (08:13→20:18)
[2020-11-27] MEDS: Linezolid 600 MG TAB PO ×2 (08:13→20:19)
[2020-11-27] MEDS: Tamsulosin 0.4 MG CAPCR PO (08:13)
[2020-11-27 08:17] VITALS: BP 111/73; PULSE 99; RESP 19; TEMP 37.2; O2SAT 90
[2020-11-27] MEDS: Nystatin CREAM 15 GM TUBE TP ×2 (08:19→20:28)
--- NOTE | 2020-11-27 13:25 | PGE_ITS ---
Date of Service Date of service: 11/27/20 Time of Service: 13:25 Assessment and Plan Assessment and plan (1) Bilateral pleural effusion: Status: Acute Assessment and plan: Improvement noted with last CXR No resp distress, [place], cough/sputum (2) Leucocytosis: Status: Acute Assessment and plan: Unclear etiology. Covering SBP and possible underlying PNA within an effusion. WBC count now improved. Cont Rocephin and Zyvox. (3) Hypomagnesemia: Status: Chronic Assessment and plan: Replacing with oral and IV. Losses from GI; on lactulose and having 2 loose stools daily. Malabsorption likely; stopped her PPI and replaced with Pepcid. Monitor. (4) Anemia: Status: Chronic Assessment and plan: Chronic with recent GI loss. Hgb now stable in the 's. Iron low at 34. Will give Venofer 200mg (5) Adult failure to thrive: Status: Acute Assessment and plan: He states his appetite is improving. Spoke with e commerce architect; recommended appetite stimulant and protein supplement. Started Marinol and liquid protein supp. (6) Alcohol induced fatty liver: Status: Acute Assessment and plan: With ascites. Bilirubin has improved to 1.1 Cont Lactulose (7) Urinary incontinence: Status: Acute Assessment and plan: He hasn't urinated for appx 5 hours he states. Will check his bladder volume. Possibly overflow incontinence. He states that his volume of urine voided typically doesn't seem like much. May need scheduled voiding. (8) Goals of care, counseling/discussion: Status: Acute Assessment and plan: Care managment working on finding a SNF; he would like to continue therapies when discharged from acute care. Had been on swing bed here and this may be his option once again. Subjective Subjective Patient reports: feels better and afebrile; denies nausea, vomiting and shortness of breath Interval history since last seen: Ambulating in the sandy with a roller walker States he has incontinence of his urine; not a new issue. No dysuria/frequency. Exam Const General: cooperative and no acute distress Nutritional Appearance: thin and underweight Orientation: alert and oriented x3 Eyes Sclera: sclerae normal Pupils: PERRL Neck Neck: full ROM and no JVD Resp Effort & Inspection: normal respiratory effort Auscultation: clear to auscultation bilaterally Cardio Rate: regular rate Rhythm: regular rhythm Heart Sounds: S1 normal and S2 normal GI Inspection: distended Palpation: soft (soft to mildly firm.) Skin General skin exam: no rashes or lesions noted and pallor Extrem General: no pedal edema and no calf tenderness Objective Last Vital Signs Temp 37.2 C 11/27/20 08:17 Pulse 99 H 11/27/20 08:17 Resp 19 11/27/20 08:17 BP 111/73 11/27/20 08:17 Pulse Ox 90 L 11/27/20 08:17 Laboratory Results - last 24 hr 11/27/20 06:34 WBC 14.56 H RBC 3.19 L Hgb 9.7 L Hct 30.4 L MCV 95.3 H MCH 30.4 MCHC 31.9 L RDW 21.4 H Plt Count 165 MPV 10.8 Immature Gran % 0.3 Neutrophils % 83.8 Lymphocytes % 7.2 Monocytes % 8.0 Eosinophils % 0.4 Basophils % 0.3 Nucleated RBC % 0 Absolute Neutrophils 12.20 H Absolute Lymphocytes 1.05 L Absolute Monocytes 1.16 H Absolute Eosinophils 0.06 Absolute Basophils 0.04
--- NOTE | 2020-11-27 13:37 | W.NUTRFU ---
Date of service: 11/27/20 Time of Service: 13:37 Nutritional Follow up NOTE: Met with Alton today and reviewed nutritional goals. Of note is frequent meal refusal in last week. Alton states he has no appetite and is willing to try an appetite stimulant (Marinol) to boost his intake as he would like to gain more weight. Discussed with Dr. Wyatt who is in agreement with adding marinol to improve his po intake. Alton remains at nutritional risk in view of low weight, hx of severe weight loss, poor appetite, nutrient impairment, protein calorie malnutrition. Continues on Low sodium diet, refusing supplementation with ensure or ensure clear as recommended. Will continue to follow. Time Spent in Nutritional Counseling and Treatment: 10
[2020-11-27] MEDS: cefTRIAXone 2 GM/50 ML BAG IVPB (14:50)
--- NOTE | 2020-11-27 14:57 | PT.INTREAT ---
Date of service: 11/27/20 Time of Service: 14:57 PT Notes Visit Reasons: FEVER, FATTY LIVER DISEASE Inpatient Physical Therapy Treatment Note [facility] Date: 11/27/2020 PRECAUTIONS: Fall. Activity as tolerated. SUBJECTIVE: Reported increased leg pain in the morning with right more affected than left during ambulation activity. Remains anxious about his post activity breathing and asks for his inhaler each time. In the afternoon, he feels more confident now that it was emphasized that he does not need to walk a long distance at home and that he can take his time doing shorter walks of up to 30 feet each time. More confident about being able to do mobility ADL more using a 4WW. Agreeable to getting HH PT/OT/SN once he goes home. Agreeable to being re-evaluated and retrained by OT for bathing and dressing if it means he can go home soon. OBJECTIVE: PAIN: Reports abdominal heaviness and pain after ambulation activity in the morning BED MOBILITY/TRANSFERS Supine-sit: modified independent with HOB flat. Able to turn to his side and push down from bed to sit up independently. Sit-supine: modified independent Sit-stand: supervision Stand-sit: supervision GAIT: Assistive Device: FWW and 4WW Weight bearing: Full Assist: SBA Distance: In the AM 300 feet with FWW. In the PM 30 feet x 3 Gait pattern/deviation: Reported fatigue and abdominal pain after ambulation activity in the AM. Needed to do 1-2 standing rest rests for each trip. Moderate shortness of breath that resolves with rest. Remained anxious after activity. In the afternoon, recovered better with short distance mabulation of 30 feet x 3 using 4WW with no complaints of leg nor abdominal pain. THEREX: In the morning,Patient tolerated seated level exercises while at edge of bed consisting of ankle dorsiflexion plantarflexion, long arc quads, seated hip flexion, and hip abduction x10 with 2 to 3 minutes of rest in between each exercise as patient complains of fatigue and shortness of breath. THERA ACT: In the afternoon, reviewed goals, trialled short distance walking to cover bed to bathroom, bed to kitchen, and bed to living room distance for 30 feet each trip. ASSESSMENT: Coordinated with jessie Cardoso about goals needed to be achieved to manage well at home. Alton now is able to tolerate up to 300 feet of level surface ambulation using the FWW. He only needs to cover a maximum distance of 30 feet for each trip from one area of his trailer to another. He may go home once medically cleared with HH PT/OT/SN services. PLAN: Continue with gait and transfer training and global strengthening for improved activity tolerance and increased independence with mobility using 4WW. DISCHARGE RECOMMENDATIONS: Will benefit from 4WW at home to maximize independece and reduce SOB. Patient will benefit from home health PT services in order to progress mobility level using least restrictive assistive ambulatory device, assess home safety, identify additional equipment needs, and establish a functional maintenance program that will increase ability of patient to remain at home. TREATMENT CODE/TIME: Session 1: 62405 x 15 minutes, 9711 0 x 9 minutes beginning at 11:08 AM. Session 2: [id number] x 32 minutes beginning at 14:57 PM.
[2020-11-27 15:46] VITALS: BP 100/69; PULSE 100; RESP 18; TEMP 37.3; O2SAT 90
[2020-11-27] MEDS: Dronabinol 2.5 MG CAP PO (16:35)
[2020-11-27] MEDS: Normal Saline Flush 10 ML SYR IVP ×2 (16:35→20:17)
--- NOTE | 2020-11-27 17:53 | CMPROGNOTE_ITS ---
- If Service Date Differs Date of service: 11/27/20 Time of Service: 17:53 Care Management Progress Note S/O: Alton was sitting up in bed when CM met with him. He volunteered that he was doing better and that he was eating better. This morning he only worked with PT in his room but this afternoon he ambulated in the hallway and completed the loop. He did state that he was tired after that. CM discussed Alton's progress with Betzy from PT. She shared that she felt that Alton has made a lot of progress and that if he is able to work with OT and demonstrate the ability to perform his own ADLs that he may be able to discharge home vs [facility] or SNF as early as Monday or Monday. That would be contingent upon medical clearance and continued advances with PT. A: Alton is a 60 year old man admitted to [facility] in 11/11/20 with ANNALISA, leukocytosis, hypokalemia P: Alton will likely be discharged home with new home health services, for RN, OT, PT and SALES OPERATIONS MANAGER. He may need to return to [facility] for more rehab prior to leaving the hospital. He will follow up with his community providers and plan of care. CM will continue to support patient, family and discharge planning con
[2020-11-27 20:00] VITALS: BP 99/70; PULSE 107; RESP 17; TEMP 38.1; O2SAT 91
[2020-11-27] MEDS: Gabapentin 300 MG CAP PO (21:43)
[2020-11-27 21:46] VITALS: TEMP 37.9
[2020-11-27 22:30] VITALS: BP 92/63; PULSE 91; RESP 16; TEMP 37.9; O2SAT 93
[2020-11-27] MEDS: Ibuprofen 400 MG TAB PO (23:59)
[2020-11-28] VITALS (7 sets, daily range): BP systolic 80–113; BP diastolic 58–64; PULSE 74–103; RESP 8–20; TEMP 36–36.8; O2SAT 94–98
[2020-11-28 07:11] LABS: Magnesium 1.3 mg/dL (1.8-2.4)
[2020-11-28] MEDS: Tiotropium Bromide-Respimat 10 PUFF INH IH (08:05)
[2020-11-28] MEDS: Budesonide/Formoterol 160/4.5 6 GM 60 PUFF INH IH ×2 (08:05→21:01)
[2020-11-28] MEDS: Lactulose 20 GM/30 ML CUP PO ×2 (08:28→21:00)
[2020-11-28] MEDS: Nystatin CREAM 15 GM TUBE TP ×2 (08:28→18:59)
[2020-11-28] MEDS: Folic Acid 1 MG TAB PO (08:28)
[2020-11-28] MEDS: Protein Nutritional Supplement 16 GM 1 OUNCE PACKET PO ×3 (08:28→20:59)
[2020-11-28] MEDS: Linezolid 600 MG TAB PO (08:29)
[2020-11-28] MEDS: guaiFENesin 600 MG TABCR PO ×2 (08:29→21:00)
[2020-11-28] MEDS: Magnesium Oxide 400 MG TAB PO ×2 (08:29→21:00)
[2020-11-28] MEDS: Spironolactone 25 MG TAB PO (08:29)
[2020-11-28] MEDS: Sucralfate 1 GM TAB PO ×4 (08:29→21:04)
[2020-11-28] MEDS: Potassium Chloride 10 MEQ CAPCR 20 MEQ PO ×3 (08:29→21:00)
[2020-11-28] MEDS: Thiamine 100 MG TAB PO (08:29)
[2020-11-28] MEDS: Tamsulosin 0.4 MG CAPCR PO (08:29)
[2020-11-28] MEDS: Dronabinol 2.5 MG CAP PO ×2 (08:29→17:25)
[2020-11-28] MEDS: Famotidine 20 MG TAB 40 MG PO ×2 (08:29→21:00)
[2020-11-28] MEDS: Multivitamin TAB 1 TAB PO (08:29)
[2020-11-28] MEDS: Midodrine 2.5 MG TAB 5 MG PO ×2 (08:29→21:00)
[2020-11-28 10:25] LABS: Abs Immature Grans 0.05 10^3/uL (0.0-0.06); Absolute Basophil Count 0.04 10^3/uL (0.0-0.2); Absolute Eosinophil Count 0.11 10^3/uL (0.0-0.7); Absolute Lymphocyte Count 0.88 10^3/uL (1.2-3.4); Basophils % 0.3; Eosinophils % 0.8; HCT 30.9 % (40.0-50.0); HGB 9.7 g/dL (13.5-17.5); Immature Grans % 0.4; Lymphocytes % 6.7; MCH 30.6 pg (27.0-33.0); MCHC 31.4 % (32.0-36.0); MCV 97.5 fL (80-95); MPV 9.7 fL (8.0-11.0); Monocytes % 6.8; Nucleated RBC 0 %; Platelet Count 202 10^3/uL (130-400); RBC 3.17 10^6/uL (4.36-5.78); RDW 21.3 % (11.8-14.1); RDW-SD 74.6 fL; Source Nasopharynx; WBC 13.15 10^3/uL (4.4-10.8)
[2020-11-28 10:34] LABS: Absolute Monocyte Count 0.89 10^3/uL (0.1-0.8); Absolute Neutrophil Count 11.18 10^3/uL (1.2-6.7)
[2020-11-28 10:36] LABS: C-Reactive Protein 2.25 mg/dL (0.0-0.3)
[2020-11-28 10:46] LABS: ALT 34 U/L (16-63); AST 69 U/L (15-37); Albumin 1.7 g/dL (3.4-5.0); Alkaline Phosphatase 61 U/L (46-116); Anion Gap 6.1 mmol/L (3-11); BUN 8 mg/dL (7-18); Bilirubin, Direct 0.76 mg/dL (0.00-0.20); Bilirubin, Total 0.9 mg/dL (0.2-1.0); CO2 25.9 mmol/L (21.0-32.0); CREATININE 0.53 mg/dL (0.70-1.30); Calcium 8.1 mg/dL (8.5-10.1); Chloride 105 mmol/L (98-107); Glucose 104 mg/dL (74-106); Potassium 4.5 mmol/L (3.5-5.1); Sodium 137 mmol/L (136-145); Total Protein 5.1 g/dL (6.4-8.2)
[2020-11-28 10:55] LABS: Procalcitonin 0.6 ng/mL
[2020-11-28] MEDS: MAGNESIUM SULFATE 4 GM/100 ML BAG IVPB (11:06)
[2020-11-28] MEDS: Normal Saline Flush 10 ML SYR IVP ×4 (11:09→20:56)
[2020-11-28 11:16] LABS: COVID-19 PCR Negative (Negative); Influenza A PCR Negative (Negative); Influenza B PCR Negative (Negative); RSV PCR Negative (Negative)
--- NOTE | 2020-11-28 11:40 | DI.RAD_ITS ---
EXAM: XR PORTABLE CHEST AP CLINICAL HISTORY: recurrent fevers, follow up PNA. TECHNIQUE: 2D digital imaging was performed. COMPARISON: CR XR PORTABLE CHEST AP from 11/23/2020 FINDINGS: Heart size is normal. The mediastinum is not widened. Infiltrates in both lung bases are again noted and there is increasing symmetrical density in the low er half of both lung dumont which is probably related to increasing fluid in both major fissures. IMPRESSION: Increasing infiltrates and pleural fluid. Recommend PA and lateral views when clinically possible or CT scan DATA REPOSITORY: RADIATION DOSE DELIVERED:
--- NOTE | 2020-11-28 11:47 | CMPROGNOTE_ITS ---
- If Service Date Differs Date of service: 11/28/20 Time of Service: 11:47 Care Management Progress Note S/O: Alton was sitting up in bed when CM met with him. He had a fever overnight and his WBC is still elevated. Additional bloodwork revealed that both his procalcitonin and CRP are elevated and a chest Xray showed worsening infiltrates. His antibiotic regimen was again changed today and he will be closely monitored. Alton admitted that he is discouraged. He maintains that he is trying to eat more and is working with PT as he is able, given his new medical challenges. A: Alton is a 60 year old man admitted to [facility] in 11/11/20 with ANNALISA, leukocytosis, hypokalemia P: Alton will likely be discharged home with new home health services, for RN, OT, PT and SYR[employer] MACHINE [employer]ORER. He may need to return to [facility] for more rehab prior to leaving the hospital. He will follow up with his community providers and plan of care. CM will continue to support patient, family and discharge planning con
--- NOTE | 2020-11-28 11:54 | DI.VRAD_ITS ---
PROCEDURE INFORMATION: Exam: XR Chest, 1 View Exam date and time: 11/28/2020 9:38 AM Age: 60 years old Clinical indication: Other: Recurrent fevers, follow up pna TECHNIQUE: Imaging protocol: XR of the chest Views: 1 view. COMPARISON: CR XR PORTABLE CHEST AP 11/23/2020 9:25 AM FINDINGS: Lungs: There is bibasilar pulmonary opacity which has increased since previous study from 11/23/2020. This is consistent with increasing bibasilar infiltrates atelectasis and effusion. Pleural space: Small bilateral pleural effusions are present. No pneumothorax. Heart/Mediastinum: The heart is not enlarged. There is calcification of the aortic arch. Bones/joints: Unremarkable. IMPRESSION: Bibasilar opacity has increased since previous study consistent with increasing bibasilar infiltrates/atelectasis and small effusions. Dictated and Authenticated by: Howard Cheema MD. Ordering:BELLE Ulloa MD
[2020-11-28] MEDS: Levalbuterol 0.63 MG/3 ML UPD VIAL UPD (13:21)
--- NOTE | 2020-11-28 13:24 | PT.INTREAT ---
Date of service: 11/28/20 Time of Service: 12:30 PT Notes Visit Reasons: FEVER, FATTY LIVER DISEASE Inpatient Physical Therapy Treatment Note [facility] Date: 11/28/2020 PRECAUTIONS: Fall, standard, activity as tolerated SUBJECTIVE: Really do not want to walk today, but indicated he wants to go home. After encouraging patient to participate in PT as discussed with supervising PT he agreed to walk to door and back x 2, but stated that was all he was willing to do today. Very tired. OBJECTIVE: PAIN: No complaint of pain. Did complain of issues with anxiety, especially when walking. Indicated that he tends to get SOB, but only mild SOB noted throughout session with walking and exercises. Indicated he needed his inhaler once back in bed, but once I let nursing staff know he stated he did not feel he needed it any more. Admitted he gets nervous and feels like he is having trouble breathing. BED MOBILITY/TRANSFERS Rolling L/R: SBA Supine-sit: SBA Sit-supine: SBA Sit-stand: SBA Stand-sit: SBA GAIT Assistive Device: 4WW Weight bearing: FWB Assist: SBA Distance: 30-35ft x 2 Ambulated bed to commode 5ft to have loose BM. Nursing informed of this. THEREX: Performed bilateral ankle pumps x10 reps, LAQs, seated hip abduction/ adduction and flexion with 2.5# ankle weights x 10 reps each. ASSESSMENT: Tolerated today's session fair, but needs significant encouragement to get moving. PLAN: Continue to focus on ambulation x 30ft, strengthening of bilateral LEs, self pacing with ADL tasks and independent bed mobility. Continue with PT's POC. TREATMENT CODE/TIME: 90620 x 2, 12:30 to 1:00 (30')
--- NOTE | 2020-11-28 14:33 | W.PM.PROGNOT ---
Date of Service Date of service: 11/28/20 Time of Service: 14:33 Assessment and Plan Assessment and plan (1) Sepsis: Status: Acute Assessment and plan: Due to Bilateral pneumonia, worse per CXR. I am concerned that his fever recurred, that there is elevation in his CRP and procalcitonin. We are checking blood, sputum, urine cultures. Change abx to vanco/zosyn. (2) Bilateral pneumonia: Status: Acute Assessment and plan: As above (3) Bilateral pleural effusion: Status: Acute Assessment and plan: Likely due to liver disease/hypoalbuminemic state. Resume PO lasix. (4) Ascites of liver: Status: Acute Assessment and plan: As above. I doubt SBP - no abdominal pain. (5) Hypomagnesemia: Status: Chronic Assessment and plan: Replete, recheck in am (6) Anemia: Status: Chronic Assessment and plan: With evidence of iron and folate deficiency. Received venofer. Will ensure has PO iron/vitamin C. (7) Alcohol induced fatty liver: Status: Acute Assessment and plan: With ascites. Alcoholic hepatitis resolved. Continue lactulose. Does not appear encephalopathic at this time. (8) Urinary incontinence: Status: Acute Assessment and plan: Check bladder scans, UA (9) Adult failure to thrive: Status: Acute Assessment and plan: Continue Marinol and liquid protein supp. (10) DVT prophylaxis: Status: Acute Assessment and plan: Chemical DVT ppx contraindicated due to recent GI bleeding. TEDs/SCDs. (11) Discharge planning issues: Status: Acute Assessment and plan: DNR/DNI COntinues to require hospitalization. Subjective Subjective Interval history since last seen: Febrile to 38.1 overnight. COVID/Flu negative on swab today. Denies dizziness, chest pain, shortness of breath. Endorses a cough which is sometimes productive. Denies n/v/abdominal pain. He says he is starting to lose it because we talked about him being started on new antibiotics for worsening pneumonia on CXR. Exam Narrative Exam Narrative: General: Pleasant middle-aged male, A&Ox3, anxious HEENT: EOMI, MMM Heart: RRR, no m/r/g Lungs: Diminished breath sounds B Abdomen: soft, distended with ascites, nontender Extremities: trace edema to B ankles, trace pedal pulses B, no c/c. Objective Last Vital Signs Temp 36.8 C 11/28/20 08:25 Pulse 78 11/28/20 13:22 Resp 17 11/28/20 13:22 BP 96/62 L 11/28/20 08:25 Pulse Ox 98 11/28/20 13:22 Laboratory Results - last 24 hr 11/28/20 11/28/20 11/28/20 06:50 06:50 10:15 WBC RBC Hgb Hct MCV MCH MCHC RDW Plt Count MPV Immature Gran % Neutrophils % Lymphocytes % Monocytes % Eosinophils % Basophils % Nucleated RBC % Absolute Neutrophils Absolute Lymphocytes Absolute Monocytes Absolute Eosinophils Absolute Basophils Sodium 137 Potassium 4.5 Chloride 105 Carbon Dioxide 25.9 Anion Gap 6.1 BUN 8 Creatinine 0.53 L Estimated GFR/1.73 m2 >= 60.00 Glucose 104 Calcium 8.1 L Magnesium 1.3 L Total Bilirubin 0.9 Conjugated Bilirubin 0.76 H AST 69 H ALT 34 Alkaline Phosphatase 61 C-Reactive Protein Total Protein 5.1 L Albumin 1.7 L Procalcitonin COVID-19 Source Nasopharynx SARS-CoV-2 (PCR) Negative Influenza Type A (PCR) Negative Influenza Type B (PCR) Negative RSV (PCR) Negative 11/28/20 11/28/20 11/28/20 10:15 10:15 10:15 WBC 13.15 H RBC 3.17 L Hgb 9.7 L Hct 30.9 L MCV 97.5 H MCH 30.6 MCHC 31.4 L RDW 21.3 H Plt Count 202 MPV 9.7 Immature Gran % 0.4 Neutrophils % 85.0 Lymphocytes % 6.7 Monocytes % 6.8 Eosinophils % 0.8 Basophils % 0.3 Nucleated RBC % 0 Absolute Neutrophils 11.18 H Absolute Lymphocytes 0.88 L Absolute Monocytes 0.89 H Absolute Eosinophils 0.11 Absolute Basophils 0.04 Sodium Potassium Chloride Carbon Dioxide Anion Gap BUN Creatinine Estimated GFR/1.73 m2 Glucose Calcium Magnesium Total Bilirubin Conjugated Bilirubin AST ALT Alkaline Phosphatase C-Reactive Protein 2.25 H Total Protein Albumin Procalcitonin 0.6 COVID-19 Source SARS-CoV-2 (PCR) Influenza Type A (PCR) Influenza Type B (PCR) RSV (PCR) Objective Narrative Objective Narrative: CXR: Bibasilar opacity has increased since previous study consistent with increasing bibasilar infiltrates/atelectasis and small effusions.
[2020-11-28 14:49] LABS: Bilirubin Negative (Negative); Blood Negative (Negative); Clarity Clear (Clear); Glucose Negative (Negative); Ketones Negative (Negative); Leukocyte Esterase Negative (Negative); Nitrite Negative (Negative); Specific Gravity >= 1.030 (1.005-1.025); Urobilinogen 0.2 EU/dL (Up TO 0.2)
[2020-11-28] MEDS: Normal Saline 500 ML 100 ML IV (15:13)
[2020-11-28] MEDS: Normal Saline 250 ML IV ×2 (15:40→17:49)
[2020-11-28] MEDS: Furosemide 20 MG TAB PO (17:26)
[2020-11-28] MEDS: PIPERACILLIN/TAZO 3.375 GM in Normal Saline 50 ML IVPB ×2 (19:05→20:56)
[2020-11-28] MEDS: Normal Saline 500 ML 30 ML IV (19:06)
[2020-11-28] MEDS: Ascorbic Acid 500 MG TAB 250 MG PO (21:00)
[2020-11-28] MEDS: Ferrous Sulfate 325 MG TAB PO (21:00)
[2020-11-28] MEDS: Acetaminophen 325 MG TAB PO (21:04)
[2020-11-28] MEDS: Gabapentin 300 MG CAP PO (21:04)
[2020-11-29] MEDS: PIPERACILLIN/TAZO 3.375 GM in Normal Saline 50 ML IVPB ×4 (02:00→20:37)
[2020-11-29] MEDS: Dronabinol 2.5 MG CAP PO (06:25)
[2020-11-29 07:27] LABS: Abs Immature Grans 0.05 10^3/uL (0.0-0.06); Absolute Basophil Count 0.06 10^3/uL (0.0-0.2); Absolute Eosinophil Count 0.24 10^3/uL (0.0-0.7); Absolute Lymphocyte Count 0.94 10^3/uL (1.2-3.4); Absolute Monocyte Count 0.86 10^3/uL (0.1-0.8); Basophils % 0.5; HCT 27.9 % (40.0-50.0); HGB 8.9 g/dL (13.5-17.5); Immature Grans % 0.4; MCH 30.2 pg (27.0-33.0); MCHC 31.9 % (32.0-36.0); MCV 94.6 fL (80-95); MPV 9.6 fL (8.0-11.0); Monocytes % 7.3; Neutrophils % 81.8; Nucleated RBC 0 %; Platelet Count 188 10^3/uL (130-400); RBC 2.95 10^6/uL (4.36-5.78); RDW-SD 71.7 fL; WBC 11.75 10^3/uL (4.4-10.8)
[2020-11-29] MEDS: Tiotropium Bromide-Respimat 10 PUFF INH IH (07:35)
[2020-11-29] MEDS: Budesonide/Formoterol 160/4.5 6 GM 60 PUFF INH IH ×2 (07:35→20:35)
[2020-11-29 07:36] LABS: BUN 9 mg/dL (7-18); CREATININE 0.47 mg/dL (0.70-1.30); Calcium 7.7 mg/dL (8.5-10.1); Chloride 105 mmol/L (98-107); Glucose 97 mg/dL (74-106); Magnesium 1.4 mg/dL (1.8-2.4); Potassium 3.6 mmol/L (3.5-5.1); Sodium 136 mmol/L (136-145)
[2020-11-29 07:39] LABS: Absolute Neutrophil Count 9.61 10^3/uL (1.2-6.7)
[2020-11-29 08:27] VITALS: BP 99/66; PULSE 108; RESP 16; TEMP 38.8; O2SAT 90
[2020-11-29] MEDS: Nystatin CREAM 15 GM TUBE TP ×2 (08:50→20:44)
[2020-11-29 08:51] VITALS: TEMP 38.8
[2020-11-29] MEDS: Lactulose 20 GM/30 ML CUP PO ×2 (08:51→20:36)
[2020-11-29] MEDS: Protein Nutritional Supplement 16 GM 1 OUNCE PACKET PO ×2 (08:51→20:35)
[2020-11-29] MEDS: Acetaminophen 325 MG TAB PO (08:51)
[2020-11-29] MEDS: MAGNESIUM SULFATE 4 GM/100 ML BAG IVPB (08:52)
[2020-11-29] MEDS: Potassium Chloride 10 MEQ CAPCR 20 MEQ PO ×3 (08:52→20:41)
[2020-11-29] MEDS: Normal Saline Flush 10 ML SYR IVP ×6 (08:58→21:59)
[2020-11-29 09:06] VITALS: TEMP 36.9
--- NOTE | 2020-11-29 12:44 | PT.INTREAT ---
Date of service: 11/29/20 Time of Service: 12:10 PT Notes Visit Reasons: FEVER, FATTY LIVER DISEASE Inpatient Physical Therapy Treatment Note [facility] Date: 11/29/2020 PRECAUTIONS:Fall, standard and activity as tolerated SUBJECTIVE: Stated he is too tired and SOB to do a lot today. Wants to go home but just does not feel well. Arrived to patient's room to find him eating a chocolate bar, with a pile of used toilet paper beside his food. Nursing staff was made aware of this. He indicated that he tried to wipe himself. This was cleaned up and patient agreed to do bed exercises only. We did review activities he needs to demonstrate prior to being able to go home. Also, discussed the importance of sitting up and walking to help with getting rid of pneumonia. OBJECTIVE: PAIN: No reported pain. BED MOBILITY/TRANSFERS Rolling L/R: Verbal and tactile cuing with rolling to the right to transition to sitting. HOB flat. Supine-sit: Verbal and tactile cuing Sit-supine: SBA Refused standing and ambulation today due to not feeling well and complaining of having difficulty with SOB. GAIT Ambulation not performed today. THEREX: Performed ankle pumps, LAQs with 2.5# ankle weights, seated hip flexion and abd/ adduction with 2.5# weights for 10 reps each. Had to instruct patient to slow down to avoid getting SOB. Was rushing through exercises to get them over with. Did complain of SOB with hip abd/add and flexion and was advised to rest. O2 was noted to be 92% once back in bed on room air. Nursing staff was advised of patient complaining of SOB. ASSESSMENT: Despite complaints of SOB he appeared to be tolerating activity fair. Was performing exercise quickly to get them over with. Seemed irritated that he was asked to do them. His pizza arrived while performing his exercises. PLAN: Continue with current plan of care as he is able to tolerate. TREATMENT CODE/TIME: 91221 x 1, 12:10 to 12:25 (15')
--- NOTE | 2020-11-29 12:46 | CMPROGNOTE_ITS ---
- If Service Date Differs Date of service: 11/29/20 Time of Service: 12:46 Care Management Progress Note S/O: Alton was sitting up in bed when CM met with him. He was smiling and stated that he is feeling much better today. He slept OK and he stated that his appetite is improving. His mother brought him in a pizza and he ate a fair amount of it in addition to foods served at mealtimes. Alton's temperature wasa recorded at 38.8 this morning but was 36.9 on re-check a few minutes later. His WBC is down from yesterday and the provider voiced that she feels the new antibiotics are beginning to work. Alton was only willing to do minimal exercises with PT today and did not ambulate. 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 He may need to return to [facility] for more rehab prior to leaving the hospital. He will follow up with his community providers and plan of care. CM will continue to support patient, family and discharge planning con
[2020-11-29 13:17] LABS: Vancomycin, Trough 17.3 ug/mL (10.0-20.0)
--- NOTE | 2020-11-29 15:51 | W.PM.PROGNOT ---
Date of Service Date of service: 11/29/20 Time of Service: 15:51 Assessment and Plan Assessment and plan (1) Sepsis: Status: Acute Assessment and plan: Due to Bilateral pneumonia, worse per CXR yesterday. Febrile again today. Continue vanco/zosyn. (2) Bilateral pneumonia: Status: Acute Assessment and plan: As above (3) Bilateral pleural effusion: Status: Acute Assessment and plan: Likely due to liver disease/hypoalbuminemic state. Continue PO lasix/spironolactone. (4) Ascites of liver: Status: Acute Assessment and plan: As above. I doubt SBP - no abdominal pain. Spironolactone/lasix. (5) Hypomagnesemia: Status: Chronic Assessment and plan: Replete, recheck in am (6) Anemia: Status: Chronic Assessment and plan: With evidence of iron and folate deficiency. Received venofer. Will ensure has PO iron/vitamin C. (7) Alcohol induced fatty liver: Status: Acute Assessment and plan: With ascites. Alcoholic hepatitis resolved. Continue lactulose. Does not appear encephalopathic at this time. (8) Urinary incontinence: Status: Acute Assessment and plan: Stop bladder scanning - no evidence of urinary retention. (9) Adult failure to thrive: Status: Acute Assessment and plan: Continue Marinol and liquid protein supp. (10) DVT prophylaxis: Status: Acute Assessment and plan: Chemical DVT ppx contraindicated due to recent GI bleeding. TEDs/SCDs. (11) Discharge planning issues: Status: Acute Assessment and plan: DNR/DNI Continues to require hospitalization. Subjective Subjective Interval history since last seen: Mr Awad states that he is in pain from just having had urinary catheter placed. While he has had high PVRs, this is likely due to ascits and the walters catheter can come out. Denies dizziness, chest pain, shortness of breath, nausea. C/o productive cough, but very little sputum comes out. Exam Narrative Exam Narrative: General: Pleasant middle-aged male, A&Ox3, anxious, coughs HEENT: EOMI, MMM Heart: RRR, no m/r/g Lungs: Diminished breath sounds B Abdomen: soft, distended with ascites Extremities: trace edema to B ankles, trace pedal pulses B, no c/c. Objective Last Vital Signs Temp 36.9 C 11/29/20 09:06 Pulse 108 H 11/29/20 08:27 Resp 16 11/29/20 08:27 BP 99/66 L 11/29/20 08:27 Pulse Ox 90 L 11/29/20 08:27 Laboratory Results - last 24 hr 11/29/20 11/29/20 11/29/20 06:25 06:25 12:52 WBC 11.75 H RBC 2.95 L Hgb 8.9 L Hct 27.9 L MCV 94.6 MCH 30.2 MCHC 31.9 L RDW 21.0 H Plt Count 188 MPV 9.6 Immature Gran % 0.4 Neutrophils % 81.8 Lymphocytes % 8.0 Monocytes % 7.3 Eosinophils % 2.0 Basophils % 0.5 Nucleated RBC % 0 Absolute Neutrophils 9.61 H Absolute Lymphocytes 0.94 L Absolute Monocytes 0.86 H Absolute Eosinophils 0.24 Absolute Basophils 0.06 Sodium 136 Potassium 3.6 Chloride 105 Carbon Dioxide 25.0 Anion Gap 6.0 BUN 9 Creatinine 0.47 L Estimated GFR/1.73 m2 >= 60.00 Glucose 97 Calcium 7.7 L Magnesium 1.4 L Vancomycin Trough 17.3
[2020-11-29] MEDS: Furosemide 20 MG TAB PO (16:14)
[2020-11-29 16:35] VITALS: BP 118/82; PULSE 106; RESP 19; TEMP 37; O2SAT 93
[2020-11-29] MEDS: guaiFENesin 600 MG TABCR PO (20:41)
[2020-11-29] MEDS: Ascorbic Acid 500 MG TAB 250 MG PO (20:41)
[2020-11-29] MEDS: Famotidine 20 MG TAB 40 MG PO (20:42)
[2020-11-29] MEDS: Magnesium Oxide 400 MG TAB PO (20:42)
[2020-11-29] MEDS: Ferrous Sulfate 325 MG TAB PO (20:42)
[2020-11-29] MEDS: Midodrine 2.5 MG TAB 5 MG PO (20:42)
[2020-11-29] MEDS: Sucralfate 1 GM TAB PO (21:59)
[2020-11-29] MEDS: Gabapentin 300 MG CAP PO (21:59)
--- NOTE | 2020-11-30 | DI.US_ITS ---
EXAM: US EXTREMITY VENOUS BI CLINICAL HISTORY: recurrent fevers, concern for DVT TECHNIQUE: Grayscale, color, and doppler imaging of the deep venous system of both lower extremities was performed. COMPARISON: No exams were available for comparison FINDINGS: There is no evidence of intraluminal thrombus and there is normal compression and augmentation demons trated within the common femoral veins, femoral veins, and popliteal veins of both lower extremities. In the calves the interrogated veins also exhibit normal compression/ augmentation properties. The greater saphenous veins also appear patent as do the saphenofemoral junctions bilaterally.. IMPRESSION: 1. No ultrasound evidence of DVT in either lower extremity. DATA REPOSITORY:
[2020-11-30] MEDS: PIPERACILLIN/TAZO 3.375 GM in Normal Saline 50 ML IVPB ×4 (02:15→19:20)
[2020-11-30 03:04] VITALS: BP 100/69; PULSE 89; RESP 18; TEMP 37.5; O2SAT 92
[2020-11-30] MEDS: Sucralfate 1 GM TAB PO ×3 (06:41→16:35)
[2020-11-30] MEDS: Dronabinol 2.5 MG CAP PO ×2 (06:41→16:34)
[2020-11-30 07:23] LABS: Abs Immature Grans 0.03 10^3/uL (0.0-0.06); Absolute Basophil Count 0.05 10^3/uL (0.0-0.2); Absolute Eosinophil Count 0.12 10^3/uL (0.0-0.7); Absolute Monocyte Count 0.84 10^3/uL (0.1-0.8); Basophils % 0.4; HCT 30.2 % (40.0-50.0); HGB 9.8 g/dL (13.5-17.5); Immature Grans % 0.3; Lymphocytes % 10.4; MCH 30.2 pg (27.0-33.0); MCHC 32.5 % (32.0-36.0); MCV 93.2 fL (80-95); MPV 9.6 fL (8.0-11.0); Monocytes % 7.1; Neutrophils % 80.8; Nucleated RBC 0 %; Platelet Count 199 10^3/uL (130-400); RBC 3.24 10^6/uL (4.36-5.78); RDW 20.4 % (11.8-14.1); RDW-SD 69.2 fL; WBC 11.88 10^3/uL (4.4-10.8)
[2020-11-30 07:29] LABS: Absolute Lymphocyte Count 1.24 10^3/uL (1.2-3.4)
[2020-11-30 07:38] LABS: BUN 8 mg/dL (7-18); C-Reactive Protein 2.32 mg/dL (0.0-0.3); CREATININE 0.54 mg/dL (0.70-1.30); Calcium 8.2 mg/dL (8.5-10.1); Chloride 106 mmol/L (98-107); Glucose 96 mg/dL (74-106); Magnesium 1.6 mg/dL (1.8-2.4); Potassium 3.5 mmol/L (3.5-5.1); Sodium 138 mmol/L (136-145)
[2020-11-30 07:40] VITALS: BP 100/66; PULSE 96; RESP 20; TEMP 36.9; O2SAT 93
[2020-11-30 07:46] LABS: Anisocytosis 2+; Diff Comment RBC Morph Reviewed
[2020-11-30 07:47] LABS: Polychromasia Present; Target Cells 2+
[2020-11-30] MEDS: Tiotropium Bromide-Respimat 10 PUFF INH IH (08:00)
[2020-11-30] MEDS: Budesonide/Formoterol 160/4.5 6 GM 60 PUFF INH IH ×2 (08:01→21:33)
[2020-11-30] MEDS: Midodrine 2.5 MG TAB 5 MG PO ×2 (08:32→21:21)
[2020-11-30] MEDS: Ascorbic Acid 500 MG TAB 250 MG PO (08:32)
[2020-11-30] MEDS: Lactulose 20 GM/30 ML CUP PO ×2 (08:32→21:20)
[2020-11-30] MEDS: Folic Acid 1 MG TAB PO (08:33)
[2020-11-30] MEDS: Famotidine 20 MG TAB 40 MG PO ×2 (08:33→21:27)
[2020-11-30] MEDS: Ferrous Sulfate 325 MG TAB PO ×2 (08:34→21:20)
[2020-11-30] MEDS: Spironolactone 25 MG TAB PO (08:34)
[2020-11-30] MEDS: Thiamine 100 MG TAB PO (08:34)
[2020-11-30] MEDS: Tamsulosin 0.4 MG CAPCR PO (08:34)
[2020-11-30] MEDS: Magnesium Oxide 400 MG TAB PO (08:34)
[2020-11-30] MEDS: Potassium Chloride 10 MEQ CAPCR 20 MEQ PO ×2 (08:34→14:43)
[2020-11-30] MEDS: Protein Nutritional Supplement 16 GM 1 OUNCE PACKET PO ×3 (08:35→21:21)
[2020-11-30] MEDS: Multivitamin TAB 1 TAB PO (08:35)
[2020-11-30] MEDS: Nystatin CREAM 15 GM TUBE TP ×2 (08:35→21:21)
[2020-11-30] MEDS: Furosemide 20 MG TAB PO ×2 (08:35→16:35)
--- NOTE | 2020-11-30 10:24 | PDOC.CMPRO ---
- If Service Date Differs Date of service: 11/30/20 Time of Service: 10:24 Care Management Progress Note S/O: Alton was sitting up in bed when CM met with him. He stated that he is feeling good today. He slept last night and his appetite has improved. Alton has been reluctant to work with PT for the last few days. He cites his SOB and lack of energy which is likely exacerbated by his recurrent bilateral pneumonia. There may be a motivational component as well. PT will likely D/C Alton from their service within the next couple of days as he has met his ambulation goals. He would likely benefit from more strengthening however. Another palliative consult has been ordered to re-examine Alton's goals of care.. A: Alton is a 60 year old man admitted to [facility] in 11/11/20 with ANNALISA, leukocytosis, hypokalemia P: Alton will likely be discharged home with new home health services, for RN, OT, PT and FOUNDATION RELATIONS MANAGER. Another palliative consult has been requested to clarify goals of care. Alton will follow up with his community providers and plan of care. CM will continue to support patient, family and discharge planning con
[2020-11-30] MEDS: MAGNESIUM SULFATE 4 GM/100 ML BAG IVPB (11:01)
--- NOTE | 2020-11-30 11:30 | NT_ITS ---
Date of service: 11/30/20 Time of Service: 11:30 PT Notes Visit Reasons: FEVER, FATTY LIVER DISEASE Refused to get out of bed for this session stating that his chest and abdomen hurt. He also complained of being fatigued and would like to just stay in bed. Reviewed goals with client and requested that a low intensity exercise session be done while in bed to mobilize him a bit. Patient remained firm of not doing anything. enterprise architect manager Janae was updated of patient's refusal and about patient's poor prognosis for achieving therapy goals due to lack of motivation. CM Janae requested to hold off on any planned discharge and see how patient will respond tomorrow. CM Janae will then bring up the possibility of going palliative care with patient on Monday when she comes back. Thank you for the opportunity to participate in the care of this patient. Sabina Kumar PT, DPT, CLT [facility] [place], [place]
[2020-11-30 16:16] VITALS: BP 111/76; PULSE 109; RESP 18; TEMP 37; O2SAT 91
--- NOTE | 2020-11-30 16:20 | W.PM.PROGNOT ---
Date of Service Date of service: 11/30/20 Time of Service: 16:20 Assessment and Plan Assessment and plan (1) Sepsis: Status: Acute Assessment and plan: Due to Bilateral pneumonia. Afebrile x 24 hrs. Blood cx NGTD. Continue vanco/zosyn. (2) Bilateral pneumonia: Status: Acute Assessment and plan: As above (3) Bilateral pleural effusion: Status: Acute Assessment and plan: Likely due to liver disease/hypoalbuminemic state. Continue PO lasix/spironolactone (increase dose) (4) Ascites of liver: Status: Acute Assessment and plan: As above. Increase Spironolactone/continue lasix. (5) Hypomagnesemia: Status: Chronic Assessment and plan: Replete and recheck in am (6) Anemia: Status: Chronic Assessment and plan: With evidence of iron and folate deficiency. Received venofer. Continue PO iron/vitamin C. (7) Alcohol induced fatty liver: Status: Acute Assessment and plan: With ascites. Alcoholic hepatitis resolved. Continue lactulose. Does not appear encephalopathic at this time. (8) Urinary incontinence: Status: Acute Assessment and plan: Stop bladder scanning - no evidence of urinary retention. (9) Adult failure to thrive: Status: Acute Assessment and plan: Continue Marinol and liquid protein supp. (10) DVT prophylaxis: Status: Acute Assessment and plan: Chemical DVT ppx contraindicated due to recent GI bleeding. TEDs/SCDs. (11) Discharge planning issues: Status: Acute Assessment and plan: DNR/DNI Anticipate discharge home in 48 hrs. Reconsult palliative care. Subjective Subjective Interval history since last seen: Mr Awad feels better today. He states he was nauseated yesterday, but no longer feels that way today. Denies dizziness, chest pain, endorses his chronic shortness of breath. Denies abdominal pain, though he states his abdomen is starting to feel uncomfortable from the distention of the ascites. Exam Narrative Exam Narrative: General: Pleasant middle-aged male, A&Ox3, looks better today HEENT: EOMI, MMM Heart: RRR, no m/r/g Lungs: Diminished breath sounds B Abdomen: soft, more distended with ascites, becoming tense Extremities: no edema/c/c. Objective Last Vital Signs Temp 36.9 C 11/30/20 07:40 Pulse 96 H 01/25/21 07:40 Resp 20 11/30/20 07:40 BP 100/66 11/30/20 07:40 Pulse Ox 93 11/30/20 07:40 Laboratory Results - last 24 hr 11/30/20 11/30/20 06:34 06:34 WBC 11.88 H RBC 3.24 L Hgb 9.8 L Hct 30.2 L MCV 93.2 MCH 30.2 MCHC 32.5 RDW 20.4 H Plt Count 199 MPV 9.6 Immature Gran % 0.3 Neutrophils % 80.8 Lymphocytes % 10.4 Monocytes % 7.1 Eosinophils % 1.0 Basophils % 0.4 Nucleated RBC % 0 Absolute Neutrophils 9.60 H Absolute Lymphocytes 1.24 Absolute Monocytes 0.84 H Absolute Eosinophils 0.12 Absolute Basophils 0.05 RBC Morphology See below Polychromasia Present Anisocytosis 2+ Sodium 138 Potassium 3.5 Chloride 106 Carbon Dioxide 26.0 Anion Gap 6.0 BUN 8 Creatinine 0.54 L Estimated GFR/1.73 m2 >= 60.00 Glucose 96 Calcium 8.2 L Magnesium 1.6 L C-Reactive Protein 2.32 H
[2020-11-30] MEDS: Acetaminophen 325 MG TAB PO (17:11)
[2020-11-30] MEDS: Gabapentin 300 MG CAP PO (21:20)
[2020-11-30] MEDS: Normal Saline Flush 10 ML SYR IVP (21:22)
[2020-12-01] MEDS: Normal Saline Flush 10 ML SYR IVP ×2 (03:07→20:41)
[2020-12-01] MEDS: PIPERACILLIN/TAZO 3.375 GM in Normal Saline 50 ML IVPB ×2 (03:07→10:10)
[2020-12-01 03:08] VITALS: BP 95/59; PULSE 97; RESP 16; TEMP 37.2; O2SAT 92
[2020-12-01] MEDS: Dronabinol 2.5 MG CAP PO ×2 (07:29→17:06)
[2020-12-01 07:32] LABS: Abs Immature Grans 0.05 10^3/uL (0.0-0.06); Absolute Lymphocyte Count 0.98 10^3/uL (1.2-3.4); Absolute Monocyte Count 1.18 10^3/uL (0.1-0.8); Basophils % 0.6; Eosinophils % 1.6; HCT 27.5 % (40.0-50.0); HGB 8.7 g/dL (13.5-17.5); Immature Grans % 0.4; Lymphocytes % 7.7; MCHC 31.6 % (32.0-36.0); MCV 94.8 fL (80-95); MPV 9.7 fL (8.0-11.0); Monocytes % 9.3; Neutrophils % 80.4; Nucleated RBC 0 %; Platelet Count 168 10^3/uL (130-400); RDW 20.6 % (11.8-14.1); RDW-SD 70.5 fL
[2020-12-01 07:37] LABS: Absolute Basophil Count 0.08 10^3/uL (0.0-0.2); Absolute Neutrophil Count 10.21 10^3/uL (1.2-6.7)
[2020-12-01 07:42] LABS: Anion Gap 5.3 mmol/L (3-11); BUN 16 mg/dL (7-18); CO2 24.7 mmol/L (21.0-32.0); CREATININE 1.33 mg/dL (0.70-1.30); Calcium 8.2 mg/dL (8.5-10.1); Chloride 105 mmol/L (98-107); Estimated GFR 55.23 (mL/min/1.73m2); Glucose 104 mg/dL (74-106); Magnesium 2.5 mg/dL (1.8-2.4); Potassium 3.9 mmol/L (3.5-5.1); Sodium 135 mmol/L (136-145)
[2020-12-01 07:55] VITALS: BP 101/69; PULSE 99; RESP 19; TEMP 36.7; O2SAT 92
[2020-12-01 08:05] LABS: Procalcitonin 1.5 ng/mL
[2020-12-01] MEDS: Lactulose 20 GM/30 ML CUP PO (09:17)
[2020-12-01] MEDS: Protein Nutritional Supplement 16 GM 1 OUNCE PACKET PO (09:18)
[2020-12-01] MEDS: Multivitamin TAB 1 TAB PO (09:18)
[2020-12-01] MEDS: Sucralfate 1 GM TAB PO ×3 (09:18→17:06)
[2020-12-01] MEDS: Midodrine 2.5 MG TAB 5 MG PO (09:18)
[2020-12-01] MEDS: Famotidine 20 MG TAB 40 MG PO (09:18)
[2020-12-01] MEDS: Potassium Chloride 10 MEQ CAPCR 20 MEQ PO (09:19)
[2020-12-01] MEDS: Ascorbic Acid 500 MG TAB 250 MG PO (09:19)
[2020-12-01] MEDS: Spironolactone 50 MG TAB PO (09:20)
[2020-12-01] MEDS: Furosemide 20 MG TAB PO ×2 (09:20→17:06)
[2020-12-01] MEDS: Ferrous Sulfate 325 MG TAB PO (09:20)
[2020-12-01] MEDS: Tamsulosin 0.4 MG CAPCR PO (09:20)
[2020-12-01] MEDS: Magnesium Oxide 400 MG TAB PO (09:20)
[2020-12-01] MEDS: Thiamine 100 MG TAB PO (09:20)
[2020-12-01] MEDS: Folic Acid 1 MG TAB PO (09:20)
[2020-12-01] MEDS: Nystatin CREAM 15 GM TUBE TP (09:21)
[2020-12-01] MEDS: Tiotropium Bromide-Respimat 10 PUFF INH IH (09:32)
[2020-12-01] MEDS: Budesonide/Formoterol 160/4.5 6 GM 60 PUFF INH IH (09:32)
--- NOTE | 2020-12-01 10:45 | W.PM.PROGNOT ---
Date of Service Date of service: 12/01/20 Time of Service: 10:45 Assessment and Plan Assessment and plan (1) Sepsis: Status: Acute Assessment and plan: Due to Bilateral pneumonia. Afebrile x 48 hrs, but CRP has not budged, and procalcitonin and WBC have increased. Blood cx NGTD. Sputum cx with normal amelia (prelim); repeat is ordered Continue vancomycin, change zosyn to meropenem, and add doxycycline. Consider thoracenthesis (pleural effusions could be empyema). Consider ID consult. Doubt SBP due to no pain on exam. (2) Bilateral pneumonia: Status: Acute Assessment and plan: As above (3) Bilateral pleural effusion: Status: Acute Assessment and plan: Likely due to liver disease/hypoalbuminemic state. Empyema cannot be excluded. Repeat CXR tomorrow to see the status of pleural effusions. If persist, may benefit from thoracenthesis. Hold lasix due to increase in Cr. Continue spironolactone for now. (4) Ascites of liver: Status: Acute Assessment and plan: As above. Continue spironolactone; hold lasix. (5) Hypomagnesemia: Status: Chronic Assessment and plan: Replete and recheck in am (6) Anemia: Status: Chronic Assessment and plan: With evidence of iron and folate deficiency. Received venofer. Continue PO iron/vitamin C. (7) Alcohol induced fatty liver: Status: Acute Assessment and plan: With ascites. Alcoholic hepatitis resolved. Continue lactulose. Does not appear encephalopathic at this time. (8) Urinary incontinence: Status: Acute Assessment and plan: Stop bladder scanning - no evidence of urinary retention. (9) Adult failure to thrive: Status: Acute Assessment and plan: Continue Marinol and liquid protein supp. (10) DVT prophylaxis: Status: Acute Assessment and plan: Chemical DVT ppx contraindicated due to recent GI bleeding. TEDs/SCDs. (11) Discharge planning issues: Status: Acute Assessment and plan: DNR/DNI Continues to require hospitalization. Palliative care reconsulted. Subjective Subjective Interval history since last seen: Mr Awad reports a vague mild (2/10) diffuse abdominal pain, but he specifically states that he abdomen does not feel tense, that it just feels normal. He does not feel uncomfortable. He denies dizziness, chest pain, shortness of breath, reports cough productive of white sputum today. Denies nausea except for when he thinks of food. Nutrition reports poor PO intake. Last fever on 11/29/2020 - 38.8. Afebrile x 48 hrs. Exam Narrative Exam Narrative: General: Pleasant middle-aged male, A&Ox3 HEENT: EOMI, MMM Heart: RRR, no m/r/g Lungs: Diminished breath sounds B Abdomen: soft, nontender on my exam, distended with ascites, unchanged Extremities: no edema/c/c. Objective Last Vital Signs Temp 36.7 C 12/01/20 07:55 Pulse 99 H 12/01/20 07:55 Resp 19 12/01/20 07:55 BP 101/69 12/01/20 07:55 Pulse Ox 92 12/01/20 07:55 Laboratory Results - last 24 hr 12/01/20 12/01/20 12/01/20 05:00 07:19 07:19 WBC RBC Hgb Hct MCV MCH MCHC RDW Plt Count MPV Immature Gran % Neutrophils % Lymphocytes % Monocytes % Eosinophils % Basophils % Nucleated RBC % Absolute Neutrophils Absolute Lymphocytes Absolute Monocytes Absolute Eosinophils Absolute Basophils Sodium 135 L Potassium 3.9 Chloride 105 Carbon Dioxide 24.7 Anion Gap 5.3 BUN 16 D Creatinine 1.33 H Estimated GFR/1.73 m2 55.23 Glucose 104 Calcium 8.2 L Magnesium 2.5 H Procalcitonin 1.5 Vancomycin Trough Cancelled 12/01/20 12/01/20 07:19 09:00 WBC 12.70 H RBC 2.90 L Hgb 8.7 L Hct 27.5 L MCV 94.8 MCH 30.0 MCHC 31.6 L RDW 20.6 H Plt Count 168 MPV 9.7 Immature Gran % 0.4 Neutrophils % 80.4 Lymphocytes % 7.7 Monocytes % 9.3 Eosinophils % 1.6 Basophils % 0.6 Nucleated RBC % 0 Absolute Neutrophils 10.21 H Absolute Lymphocytes 0.98 L Absolute Monocytes 1.18 H Absolute Eosinophils 0.20 Absolute Basophils 0.08 Sodium Potassium Chloride Carbon Dioxide Anion Gap BUN Creatinine Estimated GFR/1.73 m2 Glucose Calcium Magnesium Procalcitonin Vancomycin Trough Cancelled
[2020-12-01] MEDS: DOXYCYCLINE 100 MG in Normal Saline 100 ML IVPB (11:15)
--- NOTE | 2020-12-01 11:35 | PT.INPN ---
Date of service: 12/01/20 Time of Service: 11:35 PT Notes Visit Reasons: FEVER, FATTY LIVER DISEASE Physical Therapy Inpatient Progress Note Date: 12/01/2020 Precautions: Fall. Standard. Activity as tolerated. Patient Profile/Admitting Diagnosis: Alton re-converted back to acute level of care from swing bed level 1 as of 11/24/2020. Alton is a 60-year-old male with past medical history significant for EtOH abuse and COPD who presented to the ED via EMS on 11/11/2019 with generalized weakness, confusion, increased urinary frequency, medication noncompliance, difficulty with ambulation, and bilateral leg swelling. He was found at home by his mother with altered mental status and generalized weakness. He is diagnosed with anemia due to acute blood loss, upper GI bleeding, acute hypokalemia, hypomagnesemia, leukocytosis, urinary tract infection, jaundice, and acute kidney injury. Aspiration PNA, GI bleed, hypokalemia have all been resolved per hospitalist. Subjective: Understands goals set with PT to go home safely. Remains anxious when out of bed too long. Continues to report fatigue with activity. Objective: General Observation: Supine in bed. Increasing swelling noted in B proximal and mid thighs with beginning fibrosis. Mental Status: Alert and oriented. Pain: 5-6/10 in the abdomen and B legs with ambulation activity ROM: Right Upper Extremity: Shoulder Flexion allows about 100 degrees. Shoulder abduction allows about 90 degrees. Elbow flexion WFL. Wrist flexion WFL. Opening and closing of hand WFL. Left Upper Extremity: Shoulder Flexion allows about 100 degrees. Shoulder abduction allows about 90 degrees. Elbow flexion WFL. Wrist flexion WFL. Opening and closing of hand WFL. Right Lower Extremity: Hip flexion unable to lift thigh while seated at EOB. Hip abduction WFL. Knee flexion 30 to 90 degrees. Ankle dorsiflexion 20 degrees to neutral. Ankle plantarflexion 20 degrees. Left Lower Extremity: Hip flexion unable to lift thigh while seated at EOB. Hip abduction WFL. Knee flexion 30 to 90 degrees. Ankle dorsiflexion 20 degrees to neutral. Ankle plantarflexion 20 degrees. Strength: Right Upper Extremity: Shoulder flexors 3-/5. Shoulder abductors 3-/5. Elbow flexors 4-/5. Elbow extensors 4-/5. Marketing Traffic Manager weak but functional. Left Upper Extremity: Shoulder flexors 3-/5. Shoulder abductors 3-/5. Elbow flexors 4-/5. Elbow extensors 4-/5. Marketing Traffic Manager weak but functional. Right Lower Extremity: Hip flexors 3-/5. Hip abductors 4-/5. Knee flexors 3-/5. Knee extensors 3-/5. Ankle dorsiflexors 3-/5. Ankle plantarflexors 3-/5. Left Lower Extremity: Hip flexors 3-/5. Hip abductors 4-/5. Knee flexors 3-/5. Knee extensors 3-/5. Ankle dorsiflexors 3-/5. Ankle plantarflexors 3-/5. Sensation: Intact as to pain and light pressure in B UE/LE Bed Mobility/Transfers: Supine to sit supervision Sit to stand supervision Stand to sit supervision Bed to chair supervision Chair to bed supervision Gait: 30 feet x 5 using 4 wheeled walker with complaints of 4-5?10 abdominal pain and BLE pain as well as fatigue. Each trip requiring up to 8 minutes of rest for patient to recover from SOB although his oxygen saturation remains above 88% on RA. Balance: Static Sitting: Normal Dynamic Sitting: Normal Static Standing: Fair Dynamic Standing: Fair Assessment: Alton agreed going home tomorrow morning under hospice care. Alton continues to demonstrate impairment in functional mobility skills requiring the use of a front wheeled walker and standby assist of another. His most consistent mobility level is supervision assist using the front wheeled walker for short distance ambulation of up to 30 feet with seated rest of up to 5 to 8 minutes each time for recovery. Barriers to achieving goals at this time include a lack of motivation due to limitations placed by abdominal pain and BLE discomfort and fatigue with activity. He will benefit from the use of a hospital bed as well as a 4-wheeled walker due to continued decreased activity tolerance. Patient continues to present with clinical signs and symptoms consistent with current/admitting diagnoses that have resulted to mobility limitations, gait instability, generalized weakness, and impairment of motor control as demonstrated by the following impairment level findings: 1. Continued weakness to B UE/LE major muscle groups 2. Impaired standing balance 3. Desaturation and SOB with ambulation and stairs 4. Limitation of joint range of motion in B UE/LE 5. Increased anxiety with mobility performance 6. Limited motivation and high anxiety Impairments are continuing to contributing to the following functional limitations: 1. Increased dependence with transfers 2. Inability to safely ambulate without assistive device 3. Increase completion time for mobility ADL performance 4. Increased fall risk 5. Inability to negotiate steps alone safely Goals: Goals X1 week 1. Supine-Sit independent NOT MET, CONTINUE. 2. Sit-Supine independent NOT MET, CONTINUE. 3. Sit-Stand independent NOT MET, CONTINUE. 4. Stand-Sit independent NOT MET, CONTINUE. 5. Bed-Chair independent NOT MET, CONTINUE. 6. Chair-Bed independent NOT MET, CONTINUE. 7. Independent gait on level surface with use of least restrictive device for at least 300 feet without report of pain nor dyspnea NOT MET, CONTINUE. 8. Independent stair negotiation while holding onto bilateral rails for at least 5 steps without report of pain nor dyspnea NOT MET, CONTINUE. 9. Independent with home exercise program NOT MET, CONTINUE. 10. Good static and dynamic standing balance/tolerance NOT MET, CONTINUE. DISCHARGE RECOMMENDATIONS: Per palliative consult notes today by Dr. Phelan, patient goes home tomorrow under hospice care. Will require the use of a hospital bed at home and 4 wheeled walker for short distance ambulation. TREATMENT CODE/TIME: 71631 x 22 minutes beginning at 11:35 AM. Thank you for the opportunity to participate in the care of this patient. Sabina Kumar PT, DPT, CLT [facility] [place], [place]
[2020-12-01] MEDS: VANCOMYCIN/WATER (PEG) 1 GM/200 ML BAG IV (12:21)
--- NOTE | 2020-12-01 13:32 | W.PALLCONSUL ---
Date of service: 12/01/20 Time of Service: 12:00 History of Present Illness History of Present Illness Chief Complaint: inpt care x approx 4 wks; recurrent pneumonia, GOC, etohic cirrhosis Narrative: I first met with Alton on 11/12/20, soon after his initial admission to [facility]. He was in the ICU at that time. He was transferred to the floor, then briefly to Swing Bed status, and is now back to acute care status after he redeveloped a pneumonia, resistant to several antibiotics. I spoke with Alton at length, and with the hospitalist team, and CM. Alton is clear that he wants to go home and stay home, with the intent to never return to [facility]. He is sick of being sick. He and I had discussed hospice at his 11/12/20 palliative care consultation, but at that time, he and I were both hoping that he would recover enough that he would not need hospice services quite yet. However, in the interim, he has had a prolonged hospital stay, multiple rounds of antibiotics, increasing ascites, ongoing weakness. He tells me I'm not afraid of dying. He says his mother would sign on as his primary caregiver. She lives down the street but could move in when he really needs someone with him all the time. He names two good friends as other supports--Orlando Parks and Kieran Salvador. He says both of these men drink, the former to excess, the other less so. He says he has given up alcohol for good. He has no cravings. He isn't worried that he will pick it back up when he goes home. He remains very weak. He says my butt hurts from lying in bed so much. He has been working with PT intermittently. I reviewed his last PT note from 11/29; at that time he refused standing. He also demonstrated poor personal hygiene as he had dirty toilet paper next to a chocolate bar he was eating. It appears that he is not able to strengthen or improve medically. Given his prolonged stay and multiple attempts to treat his various life-threatening diseases with no clear improvement in outcome, and given his desire to go home [place] and stay home indefinitely, he is interested in going home on hospice. I was able to call Ali Gilbert, RN and she will arrange for him to be admitted to hospice once he returns home tomorrow. CM will be in touch with his mother to arrange timing. I did tell him that hospice was for people that doctors thought would likely in the next 6 months or less. He said that seemed about right. He doesn't expect to see another winter. He would like his friends to set up his hospital bed on his porch, even if it's cold out, as that's his favorite place. I advised that he might want to wait a few months, if he can, due to the winter weather. Consults Consult date: 12/01/20 Requesting physician: Cecile Leon Ready Assessment and Plan Assessment and plan (1) Encounter for hospice care discussion: Status: Acute Assessment and plan: Initially brought up at 11/12 meeting. He has continued to decline since that visit. Given this, he now has opted to go home on hospice. He doesn't want any further treatment. Plan is d/c tomorrow. Mother will sign on as caregiver, he reports. I have not spoken to her directly. CM aware, and will contact her. (2) Discharge planning issues: Status: Acute (3) Bilateral pneumonia: Status: Acute Assessment and plan: not responding to broad spectrum aggressive antibiotics not coughing, afebrile, but imaging worse likely will be the cause of his acute demise, in setting of alcoholic liver disease (4) Ascites of liver: Status: Acute Assessment and plan: Abdomen quite distended, even when lying in bed. No acute jaundice this visit--that was present on last visit. (5) Goals of care, counseling/discussion: Status: Acute Assessment and plan: He wants to go home and not return for inpatient care. Reminded him that at times, hospice team cannot keep someone comfortable at home. In those rare cases, we might need to bring him back short-term. (6) Adult failure to thrive: Status: Acute (7) Falls frequently: Status: Acute Assessment and plan: Despite 3 weeks of intensive rehab, he is not strengthening. No improvement. Not interested in continuing PT at home. (8) Coagulopathy: Status: Chronic (9) Alcohol abuse: Status: Chronic (10) Lives alone with help available: Status: Acute (11) Palliative care patient: Status: Acute Review of Systems Constitutional Constitutional: Reports anorexia, Reports fatigue, Reports frequent falls, Reports lethargy, Reports poor appetite, Reports weakness and Reports weight loss Eyes Eyes: Reports change in vision, Reports dry eyes and Reports requires corrective lenses ENT Ears, Nose, Mouth, and Throat: Reports dysphagia, Reports odynophagia and Reports disequilibrium Cardiovascular Cardiovascular: Reports lightheadedness, Reports dyspnea and Reports dyspnea on exertion Respiratory Respiratory: Reports dyspnea and Reports dyspnea on exertion Gastrointestinal Gastrointestinal: Reports bloating, Reports dysphagia, Reports early satiety, Reports dyspepsia and Reports odynophagia Genitourinary Genitourinary: Reports difficulty urinating Musculoskeletal Musculoskeletal: Reports abnormal gait, Reports muscle weakness and Reports stiffness Neurologic Neurologic: Reports abnormal gait, Reports frequent falls, Reports memory loss, Reports tremor(s) (hands), Reports disequilibrium and Reports weakness Psychiatric Psychiatric: Reports anxiety, Reports depression, Reports difficulty concentrating, Reports hopelessness and Reports memory loss Endocrine Endocrine: Reports cold intolerance and Reports fatigue Hematologic/Lymphatic Hematologic/Lymphatic: Reports easy bleeding and Reports easy bruising [facility] Medical History (Updated 12/01/20 @ 13:49 by Cecile Phelan MD) Abnormal abdominal CT scan Alcohol induced fatty liver Alcohol use disorder Alcohol use disorder Anemia, iron deficiency Arthritis Atherosclerosis of abdominal aorta Hopson's esophagus determined by endoscopy Barretts esophagus Bone spur of foot Chronic iron deficiency anemia DDD (degenerative disc disease) Dehydration Dehydration, mild Depression Depression with anxiety Diverticulosis DNI (do not intubate) DNR (do not resuscitate) Encounter for hospice care discussion Erosive gastritis Erosive gastritis Essential tremor Fatty liver Gastroenteritis Goals of care, counseling/discussion Hematemesis Hepatitis A Hyperlipemia Hypokalemia due to excessive gastrointestinal loss of potassium Insomnia Left knee pain Lives alone with help available LLQ abdominal pain Low back pain Lower extremity edema Nonspecific ST-T wave electrocardiographic changes Osteoarthritis (arthritis due to wear and tear of joints) Palliative care patient POLST (Physician Orders for Life-Sustaining Treatment) signed 11/12/20 Rectal polyp Smoker unmotivated to quit Suspected COVID-19 virus infection Tetrahydrocannabinol (THC) use disorder, moderate, dependence Thrombocytopenia Tobacco use disorder Transaminitis Urinary incontinence Urinary urgency (08/14/17) Surgical History History of foot surgery Hx of colonoscopy Hx of esophagogastroduodenoscopy Family History Sister Anxiety Depression Father Cancer Mother Anxiety Social History (Updated 12/01/20 @ 13:52 by Cecile Phelan MD) Smoking/Tobacco Use Status: Current every day Tobacco Type: cigarettes Smoking packs per day: 1.5 Smoking cigarettes per day: 30.0 Smoking risk assessment performed?: Yes Alcohol Intake: current Alcohol Intake frequency: 3 or more drinks per day Alcohol type: beer Counseling provided: provider counseling Drug use: Daily Substance use type: marijuana Counseling given: Yes Details: No IV Drug Use Adopted: No Caregiver/Support person: Yes (mother lives nearby, visits daily) Foster care: No Household members: none Housing: house Number of Children: 0 Communication Needs: Corrective Lenses Education Level: high school Do you need help understanding health information?: Often current occupation: Unemployed Sexually active: No Do you think of yourself as: straight/heterosexual Current gender identity: male What is your relationship status?: never How often do you talk on the phone with friends or family?: three or more times per week How often do you get together with friends or relatives?: three or more times per week Panel score (0-1 are the most socially isolated patients): 1 What type of physical activity do you participate in: none and sedentary lifestyle Special pito needs: No Agree to transfusion: No Seatbelt use: sometimes 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 Mom visits nearly daily. Friend Terrell Salvador visits every 3 weeks or so. Until this admission in Nov 2020, he reported that he drinks and smokes too much. Always has. Feeling as if his health is giving out on him. This is not his first GI bleed. Knows that he went to far with his drinking and smoking. Knows it is killing him. Planning to go home on hospice. Biggest desire is to stay home. Doesn't want to end up in the hospital again. Not having any pain, occasional anxiety. Says he's done drinking forever. Mom, he expects, will be his care provider. Hospice team aware of admission scheduled for 12/02/20. Exam Const General: comfortable, no acute distress and frail appearing Nutritional Appearance: cachectic Orientation: alert and awake HENNY Head: normocephalic Eyes Pupils: PERRL Resp Effort & Inspection: normal respiratory effort Auscultation: clear to auscultation bilaterally Cardio Rate: regular rate Rhythm: regular rhythm GI Inspection: normal to inspection and distended Palpation: firm, tender and ascites Percussion: dullness to percussion Auscultation: hypoactive bowel sounds Rectal Exam: deferred Skin General skin exam: ecchymosis and pallor Neuro General: patient alert and patient awake Cognition: normal cognition Speech: speech normal Gait: other (bedbound, too weak to stand) Motor: tremor, strength abnormal and asterixis Psych Appearance: disheveled Speech and Movement: speech clear Mood: dysthymic mood Affect: sad Attitude: cooperative Thought Process: confabulating and impoverished Insight: fair Judgment: fair Other: knows his bad habits are killing him unable to change at this time in his life not afraid of dying feels his time is comiong Results Last Vital Signs Temp 98.1 F 12/01/20 07:55 Pulse 99 H 12/01/20 07:55 Resp 19 12/01/20 07:55 BP 101/69 12/01/20 07:55 Pulse Ox 92 12/01/20 07:55 Labs Result diagrams: 12/01/20 07:19 12/01/20 07:19 Labs: Laboratory Results - last 24 hr 12/01/20 12/01/20 12/01/20 05:00 07:19 07:19 WBC RBC Hgb Hct MCV MCH MCHC RDW Plt Count MPV Immature Gran % Neutrophils % Lymphocytes % Monocytes % Eosinophils % Basophils % Nucleated RBC % Absolute Neutrophils Absolute Lymphocytes Absolute Monocytes Absolute Eosinophils Absolute Basophils Sodium 135 L Potassium 3.9 Chloride 105 Carbon Dioxide 24.7 Anion Gap 5.3 BUN 16 D Creatinine 1.33 H Estimated GFR/1.73 m2 55.23 Glucose 104 Calcium 8.2 L Magnesium 2.5 H Procalcitonin 1.5 Vancomycin Trough Cancelled 12/01/20 12/01/20 07:19 09:00 WBC 12.70 H RBC 2.90 L Hgb 8.7 L Hct 27.5 L MCV 94.8 MCH 30.0 MCHC 31.6 L RDW 20.6 H Plt Count 168 MPV 9.7 Immature Gran % 0.4 Neutrophils % 80.4 Lymphocytes % 7.7 Monocytes % 9.3 Eosinophils % 1.6 Basophils % 0.6 Nucleated RBC % 0 Absolute Neutrophils 10.21 H Absolute Lymphocytes 0.98 L Absolute Monocytes 1.18 H Absolute Eosinophils 0.20 Absolute Basophils 0.08 Sodium Potassium Chloride Carbon Dioxide Anion Gap BUN Creatinine Estimated GFR/1.73 m2 Glucose Calcium Magnesium Procalcitonin Vancomycin Trough Cancelled
[2020-12-01 16:18] VITALS: BP 92/63; PULSE 100; RESP 18; TEMP 36.6; O2SAT 96
--- NOTE | 2020-12-01 17:48 | PDOC.CMPRO ---
- If Service Date Differs Date of service: 12/01/20 Time of Service: 17:48 Care Management Progress Note S/O: Alton was sitting at the edge of his bed today when CM met with him. PT was in the room, and stated that he has been walking from the bed to the door, and then resting in between. He was at a resting point at that moment, so it was a good time to check in. He said that he was feeling ok, but that he really wants to get home, even if only for one day. Later, Alton had a Palliative Care consult with Dr. Phelan, and he decided to return home with Hospice support. He stated that he is not afraid to , and that he does not want to return to [facility] (or any hospital), ever again. CM called his mother, Deidre, to discuss his decision with her. She cried on the phone, and had a lot of questions, which CM answered. CM stated that she would be contacted again tomorrow morning to discuss details further, and to determine a time for her to come pick him up. Deidre stated that she takes care of his sister at home currently, but she can be with Alton from about noon until 7am the following day. CM will continue to follow. A: Alton is a 60 year old man admitted to [facility] in 11/11/20 with ANNALISA, leukocytosis, hypokalemia P: Alton will be discharged home with support from Hospice tomorrow. CM will reach out to Hospice, and to Deidre again in the morning to discuss details of his discharge. CM will continue to support patient, family and discharge planning considerations.
[2020-12-02 07:43] VITALS: BP 96/63; PULSE 98; RESP 17; TEMP 37; O2SAT 94
[2020-12-02] MEDS: Famotidine 20 MG TAB 40 MG PO (09:00)
[2020-12-02] MEDS: Midodrine 2.5 MG TAB 5 MG PO (09:00)
[2020-12-02] MEDS: Ascorbic Acid 500 MG TAB 250 MG PO (09:01)
[2020-12-02] MEDS: Furosemide 20 MG TAB PO (09:01)
[2020-12-02] MEDS: Sucralfate 1 GM TAB PO ×2 (09:01→12:50)
[2020-12-02] MEDS: Folic Acid 1 MG TAB PO (09:02)
[2020-12-02] MEDS: Magnesium Oxide 400 MG TAB PO (09:02)
[2020-12-02] MEDS: Tamsulosin 0.4 MG CAPCR PO (09:02)
[2020-12-02] MEDS: Lactulose 20 GM/30 ML CUP PO (09:03)
[2020-12-02] MEDS: Protein Nutritional Supplement 16 GM 1 OUNCE PACKET PO (09:04)
[2020-12-02] MEDS: Nystatin CREAM 15 GM TUBE TP (09:05)
[2020-12-02] MEDS: Budesonide/Formoterol 160/4.5 6 GM 60 PUFF INH IH (09:55)
[2020-12-02] MEDS: Tiotropium Bromide-Respimat 10 PUFF INH IH (09:55)
--- NOTE | 2020-12-02 11:50 | DSE_ITS ---
Date of service: 12/02/20 Time of Service: 11:51 DS: Diagnosis Discharge Diagnosis (1) Bilateral pneumonia: Status: Acute (2) Ascites of liver: Status: Acute (3) Adult failure to thrive: Status: Acute (4) Falls frequently: Status: Acute (5) Coagulopathy: Status: Chronic (6) Alcohol abuse: Status: Chronic (7) Urinary incontinence: Status: Acute (8) Alcohol induced fatty liver: Status: Acute (9) Anemia: Status: Chronic (10) Hypomagnesemia: Status: Chronic (11) Bilateral pleural effusion: Status: Acute (12) Sepsis: Status: Acute Discharge Plan Disposition Patient Disposition: HOME W/HOME HEALTH SERVICE Condition: Poor Discharge Details Reason For Visit: FEVER, FATTY LIVER DISEASE Admit Date/Time: 11/24/20 10:55 Admit Provider: Zion Wyatt Attending Provider: Zion Wyatt Primary Care Provider: Jonathan Black [facility] Hospital Course: This is a 60-year-old male with history of COPD and alcoholic cirrhosis complicated by encephalopathy and coagulopathy, recurrent upper GI bleeding presumptively from his erosive esophagitis and gastritis, hospitalization requiring blood transfusion. stabilized and on PPI and carafate. hospital course further complicated by aspiration pneumonia treated with zosyn and steroids, downstepped to augmentin. Was followed by PT for ambulatory dysfunction, ultimately discharged [facility] as he remained too deconditioned to return home. Later readmitted to acute status for fever and leukocytosis placed on cefepime. antibiotics were changed multiple times and he continued to have worsening ascities. respiratory status stablized, this course also complicated with hypomagnesemia thought to be due to PPI, it was repleted and PPI stopped and replaced with Pepcid which he has tolerated well. H&H remained stable, but found to be iron and folate deficit, receive venofer. started on folic acid Encephalopathy improved and stable with lactulose. started on appetite stimulant for anorexia. palliative care consult placed and patient wishes to return home on hospice care. will be discharged to home on hospice who will oversee his care and medications. discharge plan discussed with Dr Ontiveros Home Meds and New Rx's Prescriptions: New tamsulosin 0.4 mg Capsule 0.4 mg PO DAILY Qty: 30 RF: 0 sucralfate 1 gram Tablet 1 g PO AC & HS Qty: 120 RF: 0 midodrine 5 mg Tablet 5 mg PO BID Qty: 60 RF: 0 magnesium oxide 400 mg (241.3 mg magnesium) Tablet 400 mg PO BID Qty: 60 RF: 0 lactulose 20 gram/30 mL Solution 20 g PO BID Qty: 3000 RF: 0 guaifenesin [Mucinex] 600 mg Tablet Extended Release 12hr 600 mg PO BID Qty: 60 RF: 0 acetaminophen [Tylenol] 325 mg Tablet 325 - 650 mg PO Q6H PRN PRNQty: 0 RF: 0 ascorbic acid (vitamin C) [Vitamin C] 500 mg Tablet 250 mg PO BID Qty: 60 RF: 0 dronabinol [Marinol] 2.5 mg Capsule 2.5 mg PO BID@0700,1600 Qty: 10 RF: 0 budesonide-formoterol [Symbicort] 160-4.5 mcg/actuation Hfa Aerosol Inhaler 2 puff inhalation BID Qty: 1 RF: 0 Eucerin Cream 1 applic topical PRN PRNQty: 454 RF: 0 famotidine 20 mg Tablet 40 mg PO BID Qty: 60 RF: 0 folic acid 1 mg Tablet 1 mg PO DAILY Qty: 30 RF: 0 Continued albuterol sulfate 90 mcg/actuation HFA aerosol inhaler 2 puff INHALATION Q4H PRN (Reason: bronchospasm) Qty: 18 RF: 12 ondansetron HCl [Zofran] 4 mg tablet 4 mg PO Q6H PRN (Reason: nausea and vomiting) Qty: 30 RF: 0 thiamine HCl (vitamin B1) 100 mg tablet 100 mg PO DAILY Qty: 90 RF: 3 blister packed meds PO RF: 0 Spiriva with HandiHaler 18 mcg capsule, w/inhalation device 1 cap INHALATION DAILY Qty: 60 RF: 3 gabapentin 300 mg capsule 300 mg PO HS Qty: 30 RF: 11 magnesium oxide 400 mg (241.3 mg magnesium) tablet 400 mg PO BID@1000,2000 Qty: 60 RF: 11 Therapeutic-M 1 TAB tablet 1 tab PO DAILY Qty: 30 RF: 0 Changed furosemide 20 mg tablet 20 mg PO BIDWMEAL Qty: 90 RF: 1 Discontinued mirtazapine 30 mg tablet 30 mg PO QHS Qty: 90 RF: 1 pantoprazole [Protonix] 40 mg tablet,delayed release (DR/EC) 40 mg PO BID Qty: 180 RF: 3 No Action (DME) diaper,brief,adult,disposable Misc See Rx Instructions .ROUTE .MEDSUPPLY Qty: 14 RF: 0 Discharge Instructions Instructions: Acute Liver Failure (DC) Additional Instructions: hospice services at discharge to oversee care and medication Referrals: Cecile Phelan MD [ [facility] STAFF PHYSICIAN] - Activity:: Activity as Tolerated Equipment/Supplies:: No Equipment Needed Diet:: As Tolerated Discharge Orders Discharge Orders: Discharge Order (Routine); Ordered 12/02/20 Ordered By: Calli Pinedo DS: Summary Time Spent with Patient providing and/or coordinating discharge services: Greater than 30 minutes Status at Discharge Functional status at discharge: independent ambulation Overall status at discharge: patient is not back to baseline Mental Status: mental status grossly normal Speech and Movement: speech and movement normal Mood: congruent mood Affect: sad and blunted Exam Const General: cooperative Nutritional Appearance: thin and underweight Orientation: oriented x3, oriented to person and oriented to place HENDE Head: atraumatic Eyes Sclera: sclerae normal Neck Neck: full ROM and no JVD Cardio Heart Sounds: S1 normal and S2 normal GI Inspection: normal to inspection and distended Palpation: firm, tender and ascites Skin General skin exam: no rashes or lesions noted, ecchymosis and pallor Neuro General: patient oriented x3 and moves all extremities Motor: strength not 5/5 throughout (4/5 BLE) Extrem General: no pedal edema and no calf tenderness Psych Appearance: grossly normal Mental Status: mental status grossly normal Speech and Movement: speech and movement normal Mood: congruent mood Affect: sad and blunted Judgment: fair DS: Data Vitals/I&O Vitals and I&O: Vital Signs Temperature 37.0 C 12/02/20 07:43 Temperature Source Tympanic 12/02/20 07:43 Pulse 98 H 12/02/20 07:43 Pulse Rhythm Regular 12/02/20 09:00 Respiratory Rate 17 12/02/20 07:43 Respiratory Effort Non-Labored 12/02/20 09:00 Respiratory Depth Normal 12/02/20 09:00 Respiratory Pattern Normal 12/02/20 09:00 Blood Pressure 96/63 L 12/02/20 07:43 Pulse Oximetry 94 12/02/20 07:43 Oxygen Delivery Method Room Air 12/02/20 07:43 Oxygen Flow Rate 0 12/02/20 07:43 Pain Level 0 12/01/20 16:18 Comment 11/29/20 16:28 Intake & Output 12/01/20 12/01/20 12/02/20 11:59 23:59 11:59 Intake Total 590 / 1080 490 / 1080 490 / 490 Output Total 150 / 150 100 / 100 Balance 590 / 930 340 / 930 390 / 390 Weight 64 kg Intake: IV 250 / 260 10 / 260 Oral 340 / 820 480 / 820 490 / 490 Output: Urine 150 / 150 100 / 100 Other: Urine Color Yellow Yellow Urine Appearance Clear Clear Urine Odor Normal Normal Comment urine in urinal and brief Stool Size Moderate Smear Stool Characteristics Liquid Soft Voiding Methods Diaper Urinal Diaper Incontinent Incontinent Data Completed and Pending Labs on day of discharge: Preliminary micro results at discharge 11/29/20 13:05 Sputum Culture - Preliminary Sputum Normal Dorina Dulce Albicans 11/28/20 10:15 Blood Culture - Preliminary Blood NO GROWTH 72 HOURS 11/28/20 10:05 Blood Culture - Preliminary Blood NO GROWTH 72 HOURS [facility] Medical History (Updated 12/01/20 @ 13:49 by Cecile Phelan MD) Abnormal abdominal CT scan Alcohol induced fatty liver Alcohol use disorder Alcohol use disorder Anemia, iron deficiency Arthritis Atherosclerosis of abdominal aorta Hposon's esophagus determined by endoscopy Barretts esophagus Bone spur of foot Chronic iron deficiency anemia DDD (degenerative disc disease) Dehydration Dehydration, mild Depression Depression with anxiety Diverticulosis DNI (do not intubate) DNR (do not resuscitate) Encounter for hospice care discussion Erosive gastritis Erosive gastritis Essential tremor Fatty liver Gastroenteritis Goals of care, counseling/discussion Hematemesis Hepatitis A Hyperlipemia Hypokalemia due to excessive gastrointestinal loss of potassium Insomnia Left knee pain Lives alone with help available LLQ abdominal pain Low back pain Lower extremity edema Nonspecific ST-T wave electrocardiographic changes Osteoarthritis (arthritis due to wear and tear of joints) Palliative care patient POLST (Physician Orders for Life-Sustaining Treatment) signed 11/12/20 Rectal polyp Smoker unmotivated to quit Suspected COVID-19 virus infection Tetrahydrocannabinol (THC) use disorder, moderate, dependence Thrombocytopenia Tobacco use disorder Transaminitis Urinary incontinence Urinary urgency (08/14/17) Surgical History History of foot surgery Hx of colonoscopy Hx of esophagogastroduodenoscopy Family History Sister Anxiety Depression Father Cancer Mother Anxiety Social History (Updated 12/01/20 @ 13:52 by Cecile Phelan MD) Smoking/Tobacco Use Status: Current every day Tobacco Type: cigarettes Smoking packs per day: 1.5 Smoking cigarettes per day: 30.0 Smoking risk assessment performed?: Yes Alcohol Intake: current Alcohol Intake frequency: 3 or more drinks per day Alcohol type: beer Counseling provided: provider counseling Drug use: Daily Substance use type: marijuana Counseling given: Yes Details: No IV Drug Use Adopted: No Caregiver/Support person: Yes (mother lives nearby, visits daily) Foster care: No Household members: none Housing: house Number of Children: 0 Communication Needs: Corrective Lenses Education Level: high school Do you need help understanding health information?: Often current occupation: Unemployed Sexually active: No Do you think of yourself as: straight/heterosexual Current gender identity: male What is your relationship status?: never How often do you talk on the phone with friends or family?: three or more times per week How often do you get together with friends or relatives?: three or more times per week Panel score (0-1 are the most socially isolated patients): 1 What type of physical activity do you participate in: none and sedentary lifestyle Special pito needs: No Agree to transfusion: No Seatbelt use: sometimes Drive 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 Mom visits nearly daily. Friend Terrell Salvador visits every 3 weeks or so. Until this admission in Nov 2020, he reported that he drinks and smokes too much. Always has. Feeling as if his health is giving out on him. This is not his first GI bleed. Knows that he went to far with his drinking and smoking. Knows it is killing him. Planning to go home on hospice. Biggest desire is to stay home. Doesn't want to end up in the hospital again. Not having any pain, occasional anxiety. Says he's done drinking forever. Mom, he expects, will be his care provider. Hospice team aware of ad mission scheduled for 12/02/20.
--- NOTE | 2020-12-02 16:33 | INDS_ITS ---
Date of service: 12/02/20 Time of Service: 16:33 PT Notes Visit Reasons: FEVER, FATTY LIVER DISEASE Physical Therapy Inpatient Progress Note Date: 12/02/2020 Dates of service: 11/24/2020 through 12/01/2020 This is a clinical summary of care provided on the duration of dates listed above. No charge was made in the completion of this documentation. Precautions: Fall. Standard. Activity as tolerated. Patient Profile/Admitting Diagnosis: Alton is a 60-year-old male with past medical history significant for EtOH abuse and COPD who presented to the ED via EMS on 11/11/2019 with generalized weakness, confusion, increased urinary frequency, medication noncompliance, difficulty with ambulation, and bilateral leg swelling. He was found at home by his mother with altered mental status and generalized weakness. He is diagnosed with anemia due to acute blood loss, upper GI bleeding, acute hypokalemia, hypomagnesemia, leukocytosis, urinary tract infection, jaundice, and acute kidney injury. Subjective: NT. See most recent PT/UX DESIGN LEAD notes. Objective: General Observation: NT. See most recent PT/UX DESIGN LEAD notes. Mental Status: NT. See most recent PT/UX DESIGN LEAD notes. Pain: NT. See most recent PT/UX DESIGN LEAD notes. ROM: Right Upper Extremity: Shoulder Flexion allows about 100 degrees. Shoulder abduction allows about 90 degrees. Elbow flexion WFL. Wrist flexion WFL. Opening and closing of hand WFL. Left Upper Extremity: Shoulder Flexion allows about 100 degrees. Shoulder abduction allows about 90 degrees. Elbow flexion WFL. Wrist flexion WFL. Opening and closing of hand WFL. Right Lower Extremity: Hip flexion unable to lift thigh while seated at EOB. Hip abduction WFL. Knee flexion 30 to 90 degrees. Ankle dorsiflexion 20 degrees to neutral. Ankle plantarflexion 20 degrees. Left Lower Extremity: Hip flexion unable to lift thigh while seated at EOB. Hip abduction WFL. Knee flexion 30 to 90 degrees. Ankle dorsiflexion 20 degrees to neutral. Ankle plantarflexion 20 degrees. Strength: Right Upper Extremity: Shoulder flexors 3-/5. Shoulder abductors 3-/5. Elbow flexors 4-/5. Elbow extensors 4-/5. 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 Left Upper Extremity: Shoulder flexors 3-/5. Shoulder abductors 3-/5. Elbow flexors 4-/5. Elbow extensors 4-/5. 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 Right Lower Extremity: Hip flexors 3-/5. Hip abductors 4-/5. Knee flexors 3-/5. Knee extensors 3-/5. Ankle dorsiflexors 3-/5. Ankle plantarflexors 3-/5. Left Lower Extremity: Hip flexors 3-/5. Hip abductors 4-/5. Knee flexors 3-/5. Knee extensors 3-/5. Ankle dorsiflexors 3-/5. Ankle plantarflexors 3-/5. Sensation: Intact as to pain and light pressure in B UE/LE Bed Mobility/Transfers: Supine to sit supervision Sit to stand supervision Stand to sit supervision Bed to chair supervision Chair to bed supervision Gait: 30 feet x 5 using 4 wheeled walker with complaints of 4-5?10 abdominal pain and BLE pain as well as fatigue. Each trip requiring up to 8 minutes of rest for patient to recover from SOB although his oxygen saturation remains above 88% on RA. Balance: Static Sitting: Normal Dynamic Sitting: Normal Static Standing: Fair Dynamic Standing: Fair Assessment: Per palliative consult notes, Alton agreed to going home today under hospice care. Alton continues to demonstrate impairment in functional mobility skills requiring the use of a front wheeled walker and standby assist of another. His most consistent mobility level is supervision assist using the front wheeled walker for short distance ambulation of up to 30 feet with seated rest of up to 5 to 8 minutes each time for recovery. Barriers to achieving goals at this time include a lack of motivation due to limitations placed by abdominal pain and BLE discomfort and fatigue with activity. He will benefit from the use of a hospital bed as well as a 4-wheeled walker due to continued decreased activity tolerance. Patient continues to present with clinical signs and symptoms consistent with current/admitting diagnoses that have resulted to mobility limitations, gait instability, generalized weakness, and impairment of motor control as demonstrated by the following impairment level findings: 1. Continued weakness to B UE/LE major muscle groups 2. Impaired standing balance 3. Desaturation and SOB with ambulation and stairs 4. Limitation of joint range of motion in B UE/LE 5. Increased anxiety with mobility performance 6. Limited motivation and high anxiety Impairments are continuing to contributing to the following functional limitations: 1. Increased dependence with transfers 2. Inability to safely ambulate without assistive device 3. Increase completion time for mobility ADL performance 4. Increased fall risk 5. Inability to negotiate steps alone safely Goals: Goals X1 week 1. Supine-Sit independent NOT MET 2. Sit-Supine independent NOT MET 3. Sit-Stand independent NOT MET 4. Stand-Sit independent NOT MET 5. Bed-Chair independent NOT MET 6. Chair-Bed independent NOT MET 7. Independent gait on level surface with use of least restrictive device for at least 300 feet without report of pain nor dyspnea NOT MET 8. Independent stair negotiation while holding onto bilateral rails for at least 5 steps without report of pain nor dyspnea NOT MET 9. Independent with home exercise program NOT MET 10. Good static and dynamic standing balance/tolerance NOT MET DISCHARGE RECOMMENDATIONS: Per palliative consult notes today by Dr. Phelan, patient goes home tomorrow under hospice care. Will require the use of a hospital bed at home and 4 wheeled walker for short distance ambulation. TREATMENT CODE/TIME: [place] Thank you for the opportunity to participate in the care of this patient. Sabina Kumar PT, DPT, CLT [facility] [place], [place]
--- NOTE | 2020-12-02 18:36 | PDOC.CMDIS ---
- If Service Date Differs Date of service: 12/02/20 Time of Service: 18:37 LACE Index Scoring Tool - Questions: Length of Stay (in days): 14 or more Acuity (Admit via E.D.?): Yes Comorbidities: Chronic Pulmonary Disease, Liver or Renal Disease E.D. Visits: 4 - Answers: Total Score: 19 Risk of Readmission: High Risk Care Management Discharge Reason for Hospitalization: Bilateral pleural effusions Discharge Plan: Alton will be discharged home on hospice. His mother will be his primary caregivwer and he will have hospice support in the home as well. He will transport via private vehicle with Mom. Patient/Family Education Needs: Discharge plan, expectations, limitations, Ask Me Three
== END 2020-12-02 13:56 | disposition home health service (06) | DRG 871 ==
PROVIDERS: Internal Medicine; Admitting Provider Family Medicine; PCP Family Medicine; Visit Provider Family Medicine
DX: A41.9 Sepsis, unspecified organism (principal); J18.9 Pneumonia, unspecified organism; Z68.1 Body mass index [BMI] 19.9 or less, adult; J91.8 Pleural effusion in other conditions classified elsewhere; K70.31 Alcoholic cirrhosis of liver with ascites; R62.7 Adult failure to thrive; R29.6 Repeated falls; F10.10 Alcohol abuse, uncomplicated; E83.42 Hypomagnesemia; K76.0 Fatty (change of) liver, not elsewhere classified; R63.0 Anorexia; J41.0 Simple chronic bronchitis; D50.9 Iron deficiency anemia, unspecified; K22.70 Barrett's esophagus without dysplasia; I70.0 Atherosclerosis of aorta; F41.8 Other specified anxiety disorders; Z66 Do not resuscitate; K29.60 Other gastritis without bleeding; G25.0 Essential tremor; E78.5 Hyperlipidemia, unspecified; E87.6 Hypokalemia; G47.00 Insomnia, unspecified; M54.5 Low back pain; F17.210 Nicotine dependence, cigarettes, uncomplicated; D69.59 Other secondary thrombocytopenia; R32 Unspecified urinary incontinence; Z11.52 Encounter for screening for COVID-19
CPT/HCPCS: 36410; 36415; 80048; 80053; 80076; 84145; 87040; 87637; 94640; 97110; 97162; 97530; 99222; 99232; 99233; 99239; 99255; 71045; 80202; 81003; 83735; 85025; 85610; 86140; 87070; 87086; 87205; 93970; 94667; 94668; 99238; J2405; J2543; J3475; J3490; J7614

== ENCOUNTER 2020-12-06 08:04 | Inpatient (IN) | payer OTHER, SELFPAY ==
[2020-12-06 09:05] VITALS: BP 112/78; PULSE 112; RESP 20; TEMP 36.7; O2SAT 91
[2020-12-06 09:25] VITALS: BP 112/78; PULSE 112; RESP 20; TEMP 36.7; O2SAT 91
[2020-12-06 09:30] VITALS: O2SAT 91
--- NOTE | 2020-12-06 10:10 | HPE_ITS ---
Date of service: 12/06/20 Time of Service: 10:00 Assessment and Plan Assessment and plan (1) Hospice care patient: Status: Acute Assessment and plan: Being admitted for symptom management but does not l ook as ill as his mother conveyed. May need to transition to respite tomorrow. Has refused most of his meds. Does want albuterol nebs and morphine by CADD pump. Was disappointed to hear that he will not be able to return home as his mother cannot provide necessary care for him. Will start looking at alternative placements tomorrow. He does have medicaid. (2) Lives alone with help available: Status: Acute Assessment and plan: Mom cannot provide the level of care that he needs now that he is bedbound and both fecal and urinary incontinence. (3) Ascites of liver: Status: Acute Assessment and plan: Still with significant ascites. End-stage alcoholic cirrhosis. (4) Alcohol abuse: Status: Chronic Assessment and plan: Reportedly no alcohol since discharge. Says he is done drinking. (5) COPD (chronic obstructive pulmonary disease): Status: Chronic Assessment and plan: Wants albuterol neb only, not his usual inhalers. Too hard for him to use. Qualifiers: COPD type: chronic bronchitis Chronic bronchitis type: simple Qualified Code(s): J41.0 - Simple chronic bronchitis (6) Ambulatory dysfunction: Status: Chronic Assessment and plan: Bedbound. (7) Incontinence of bowel: Status: Acute Assessment and plan: This is one of the issues that his mother could not help him with effectively. He did have feces in his hair upon admission. Will need personal care wherever he ends up on discharge. (8) Urinary incontinence: Status: Acute Assessment and plan: Foreskin swollen per nursing. Will need assessment of skin, etc. (9) Bedbound: Status: Acute Assessment and plan: Not interested or able to work with PT or OT. Will need placement that allows for bedbound status. History of Present Illness History of Present Illness Chief Complaint: on hospice for end-stage liver dz; ascites; bedbound Narrative: Alton Awad has end-stage alcoholic cirrhosis. He was sent home from [facility] on hospice on 12/02/20. His mother was his primary caregiver. She thought that she could care for him, despite her advanced age and need to care for another chronically ill child. However, she called the hospice nurse early this am to tell her that Alton was minimally responsive, and had both fecal and urinary incontinence. She could not care for him on her own. His two friends whom he thought would help have not stepped up (not sure if they were asked directly). He was transported to [facility] by ambulance; I understood from hospice nurse who heard from mother that Alton was minimally responsive and likely actively dying. When I examined him, he told me he was sound asleep until the ambulance crew arrived to transport him. He is alert, awake, not encephalopathic. He has poor body awareness; he has what appears to be feces on his forehead and on his hands. Nurses are cleaning him up. He tells me he hasn't been taking his lactulose. He doesn't want to take it. He does want albuterol nebulizers. It's hard for him to use his inhalers. His abdomen is distended with ascites. He says he has lower right abdomen pain. Review of Systems Constitutional Constitutional: Reports daytime sleepiness, Reports fatigue, Reports frequent falls, Reports lethargy, Reports malaise and Reports poor appetite Eyes Eyes: Reports requires corrective lenses ENT Ears, Nose, Mouth, and Throat: Reports dysphagia, Reports dry mouth and Reports disequilibrium Cardiovascular Cardiovascular: Reports rapid heart rate, Reports irregular heart rhythm, Reports leg edema, Reports lightheadedness, Reports dyspnea and Reports dyspnea on exertion Respiratory Respiratory: Reports dyspnea and Reports dyspnea on exertion Gastrointestinal Gastrointestinal: Reports abdominal pain, Reports bloating, Reports dysphagia, Reports early satiety and Reports fecal incontinence Genitourinary Genitourinary: Reports urinary incontinence Musculoskeletal Musculoskeletal: Reports atrophy and Reports muscle weakness Integumentary/Breasts Skin/Breast: Reports dry skin Neurologic Neurologic: Reports frequent falls, Reports memory loss and Reports disequ ilibrium Psychiatric Psychiatric: Reports abnormal sleep pattern, Reports difficulty concentrating, Reports anhedonia and Reports memory loss Endocrine Endocrine: Reports fatigue Hematologic/Lymphatic Hematologic/Lymphatic: Reports easy bleeding and Reports easy bruising [facility] Medical History (Updated 12/06/20 @ 10:37 by Cecile Phelan MD) Abnormal abdominal CT scan Alcohol induced fatty liver Alcohol use disorder Alcohol use disorder Anemia, iron deficiency Arthritis Atherosclerosis of abdominal aorta Hopson's esophagus determined by endoscopy Barretts esophagus Bedbound Bone spur of foot Chronic iron deficiency anemia DDD (degenerative disc disease) Dehydration Dehydration, mild Depression Depression with anxiety Diverticulosis DNI (do not intubate) DNR (do not resuscitate) Encounter for hospice care discussion Erosive gastritis Erosive gastritis Essential tremor Fatty liver Gastroenteritis Goals of care, counseling/discussion Hematemesis Hepatitis A Hospice care patient Hyperlipemia Hypokalemia due to excessive gastrointestinal loss of potassium Insomnia Left knee pain Lives alone with help available LLQ abdominal pain Low back pain Lower extremity edema Nonspecific ST-T wave electrocardiographic changes Osteoarthritis (arthritis due to wear and tear of joints) Palliative care patient POLST (Physician Orders for Life-Sustaining Treatment) signed 11/12/20 Rectal polyp Smoker unmotivated to quit Suspected COVID-19 virus infection Tetrahydrocannabinol (THC) use disorder, moderate, dependence Thrombocytopenia Tobacco use disorder Transaminitis Urinary incontinence Urinary urgency (08/14/17) Surgical History History of foot surgery Hx of colonoscopy Hx of esophagogastroduodenoscopy Family History (Updated 12/06/20 @ 10:19 by Cecile Phelan MD) Sister Anxiety Depression Father , from complications of his alcoholism Cancer Alcohol abuse Mother Anxiety Social History (Updated 12/06/20 @ 10:25 by Cecile Phelan MD) Smoking/Tobacco Use Status: Current every day Tobacco Type: cigarettes Smoking packs per day: 1.5 Smoking cigarettes per day: 30.0 Smoking risk assessment performed?: Yes Alcohol Intake: current Alcohol Intake frequency: 3 or more drinks per day Alcohol type: beer Counseling provided: provider counseling Drug use: Daily Substance use type: marijuana Counseling given: Yes Details: No IV Drug Use Adopted: No Caregiver/Support person: Yes (mother lives nearby, visits daily) Foster care: No Household members: none Housing: house Number of Children: 0 Communication Needs: Corrective Lenses Education Level: high school Do you need help understanding health information?: Often current occupation: Unemployed Sexually active: No Do you think of yourself as: straight/heterosexual Current gender identity: male What is your relationship status?: never How often do you talk on the phone with friends or family?: three or more times per week How often do you get together with friends or relatives?: three or more times per week Panel score (0-1 are the most socially isolated patients): 1 What type of physical activity do you participate in: none and sedentary lifestyle Special pito needs: No Agree to transfusion: No Seatbelt use: sometimes 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 Mom visits nearly daily. Friend Terrell Salvador visits every 3 weeks or so. Until this admission in Nov 2020, he reported that he was drinking and smoking too much. Always has. Feeling as if his health is giving out on him.Has had multiple GI bleeds. Knows it is killing him.Went home on hospice. Biggest desire was to stay home. He didn't want to end up in the hospital again--ever, but mother unable to provide care. I have told him that I expect that he will not be able to return home again. Will have hospice sales executive insurance investigate options for placement. Meds Home Medications and Allergies Home Medications Medication Instructions Recorded Confirmed Type Therapeutic-M 1 tab PO DAILY #30 tab 12/12/17 11/11/20 Rx albuterol sulfate 90 mcg/actuation 2 puff INHALATION Q4H PRN #18 gm 02/14/20 11/11/20 Rx aerosol inhaler thiamine HCl (vitamin B1) 100 mg 100 mg PO DAILY #90 tab 05/19/20 11/24/20 Rx tablet blister packed meds PO 06/11/20 06/30/20 History tiotropium bromide 18 mcg capsule 1 cap INHALATION DAILY #60 inh 06/11/20 11/24/20 Rx with inhalation device gabapentin 300 mg capsule 300 mg PO HS #30 cap 07/09/20 11/11/20 Rx magnesium oxide 400 mg (241.3 mg 400 mg PO BID@1000,2000 #60 tab 07/09/20 11/24/20 Rx magnesium) tablet ondansetron HCl 4 mg tablet 4 mg PO Q6H PRN #30 tab 09/01/20 11/19/20 Rx diaper,brief,adult,disposable #14 ea 11/03/20 History acetaminophen [Tylenol] 325 - 650 mg PO Q6H PRN PRN #0 tab 12/02/20 Rx ascorbic acid (vitamin C) [Vitamin 250 mg PO BID #60 tab 12/02/20 Rx C] budesonide-formoterol [Symbicort] 2 puff INHALATION BID #1 unit 12/02/20 Rx dronabinol [Marinol] 2.5 mg PO BID@0700,1600 #10 cap 12/02/20 Rx famotidine 40 mg PO BID #60 tab 12/02/20 Rx folic acid 1 mg PO DAILY #30 tab 12/02/20 Rx furosemide 20 mg PO BIDWMEAL #90 tab 12/02/20 11/24/20 Rx guaifenesin [Mucinex] 600 mg PO BID #60 tab 12/02/20 Rx lactulose 20 g PO BID #3000 ml 12/02/20 Rx lanolin dmwvorx-ke-r.pet-ceres 1 applic TOPICAL PRN PRN #454 g 12/02/20 Rx [Eucerin] magnesium oxide 400 mg PO BID #60 tab 12/02/20 Rx midodrine 5 mg PO BID #60 tab 12/02/20 Rx sucralfate 1 g PO AC & HS #120 tab 12/02/20 Rx tamsulosin 0.4 mg PO DAILY #30 cap 12/02/20 Rx Allergies Allergy/AdvReac Type Severity Reaction Status Date / Time No Known Allergies Allergy Verified 11/11/20 12:09 Exam Const General: cooperative Nutritional Appearance: thin and underweight Orientation: oriented x3, oriented to person and oriented to place [facility] Head: atraumatic Eyes Sclera: sclerae normal Neck Neck: full ROM and no JVD Cardio Rate: tachycardic Heart Sounds: S1 normal and S2 normal GI Inspection: distended Palpation: firm, tender and ascites Skin General skin exam: ecchymosis, pallor and other (spider angiomas, palmar erythema) Neuro General: patient alert, patient awake and moves all extremities Cognition: abnormal cognition Gait: other (non-ambulatory, bedbound) Motor: strength not 5/5 throughout (4/5 BLE) Extrem General: edema, muscle atrophy and pedal edema Psych Appearance: disheveled Mental Status: mental status grossly normal Speech and Movement: speech clear and slowed movement Mood: dysthymic mood Affect: sad and blunted Attitude: cooperative Thought Process: impoverished Insight: limited Judgment: fair Other: beginning to understand that he cannot go home with his mother Results Last Vital Signs Temp 98.1 F 12/06/20 09:25 Pulse 112 H 12/06/20 09:25 Resp 20 12/06/20 09:25 BP 112/78 12/06/20 09:25 Pulse Ox 91 L 12/06/20 09:25 COVID-19 Screening Have you, or household traveled for leisure in last 14 days?: No
[2020-12-06] MEDS: Scopolamine 1 MG/3 DAYS PATCH TD (12:00)
[2020-12-06 16:15] VITALS: BP 100/69; PULSE 105; RESP 20; TEMP 36.9; O2SAT 80
[2020-12-06] MEDS: Glycopyrrolate 0.2 MG/1 ML VIAL 0.1 MG IVP (21:11)
[2020-12-06] MEDS: Normal Saline Flush 10 ML SYR IVP (21:11)
--- NOTE | 2020-12-07 07:33 | NUR.NOTE ---
Nursing Note 12/07/20732 Spoke with mother Deidre Awad and related news of son's .
--- NOTE | 2020-12-07 07:49 | EXPE_ITS ---
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 Reason for consult:: mother needs care more than Alton; he has been minimally responsive if he wakes up, he will need care, too Discharge Sum: Diag PCOD Cause of : End stage liver disease Contributing Factors (1) Hospice care patient: (2) Lives alone with help available: (3) Ascites of liver: (4) Alcohol abuse: (5) COPD (chronic obstructive pulmonary disease): (6) Ambulatory dysfunction: (7) Incontinence of bowel: (8) Urinary incontinence: (9) Bedbound: Discharge Sum: Summary Date and Time Admission Date: 12/06/2100/31/21 09:16 Date of : 12/07/20 Time of : 07:17 Summary Details: I was seeing Alton for the first time. I went in the room with nursing. He was last seen at 6:30 AM and was comfortable and breathing fine. At 715 when we entered the room he had . Additional Data Confirmation of as documented by pronouncing clinician: no pulse, no respirations, no heart sounds and pupils fixed and dilated Family: contacted Attending/PCP notified?: Yes Was code activated?: No Autopsy requested?: No workers compensation examiner notified?: No Hospice patient?: Yes
--- NOTE | 2020-12-07 12:25 | CMPROGNOTE_ITS ---
- If Service Date Differs Date of service: 12/07/20 Time of Service: 12:25 Care Management Progress Note Alton peacefully this morning at 7:15 am. arrangements will be made through [facility]. Deidre, Alton's mother, was contacted by nursing staff as well as CM.
[2020-12-07 21:53] LABS: COVID-19 RT-PCR UVMMC Result Negative (Negative)
== END 2020-12-07 07:15 | disposition expired | DRG 434 ==
PROVIDERS: Admitting Provider Family Medicine; PCP Family Medicine; Visit Provider Family Medicine
DX: K70.31 Alcoholic cirrhosis of liver with ascites (principal); Z51.5 Encounter for palliative care; Z74.01 Bed confinement status; Z11.52 Encounter for screening for COVID-19; F10.10 Alcohol abuse, uncomplicated; J41.0 Simple chronic bronchitis; R26.2 Difficulty in walking, not elsewhere classified; R15.9 Full incontinence of feces; R32 Unspecified urinary incontinence; K76.0 Fatty (change of) liver, not elsewhere classified; D50.9 Iron deficiency anemia, unspecified; K22.70 Barrett's esophagus without dysplasia; F41.8 Other specified anxiety disorders; E78.5 Hyperlipidemia, unspecified; Z66 Do not resuscitate; F17.210 Nicotine dependence, cigarettes, uncomplicated; F12.20 Cannabis dependence, uncomplicated; D69.6 Thrombocytopenia, unspecified
CPT/HCPCS: 99223; 99239; U0003